=== PATIENT | female | born 1955 | race Caucasian/White ===

== ENCOUNTER → 2017-12-05 09:31 | Outpatient (CLI) | payer OTHER, SELFPAY ==
--- NOTE | 2017-12-05 09:36 | RAD_ITS ---
PROCEDURE: Fluoroscopic guided Hip Injection DATE: December 05, 2017. INDICATION: Female, 62 years old. Chronic left hip pain. PHYSICIAN: Raghavendra Mobley M.D. MEDICATIONS: 80 mg of Kenalog and 3 cc of 0.5% Marcaine. 2% Lidocaine administered subcutaneously for local anesthesia. ACCESS SITE: Left hip. NEEDLE: 22-gauge spinal needle. FLUOROSCOPY TIME (if supplied): (0:33) minutes/seconds FINDINGS: The risks, benefits, and alternatives to the procedure were explained to the patient. The specific risks of bleeding, infection, and neurovascular injury were detailed and accepted. Witnessed informed consent was obtained. A 22-gauge spinal needle was positioned under radiographic fluoroscopic localization. Approximately 2 cc of Isovue-300 instilled for localization purposes. Medication was then injected. The patient tolerated the procedure well without any immediate complications. RAD/Inj/Asp Willy Jt Should/Hip/Knee IMPRESSION: 1. Successful fluoroscopic guided hip injection. Electronically Signed: Raghavendra Mobley MD at 10:59 EST Tel [phone], Service support ,
== END ==
PROVIDERS: Family Provider Internal Medicine; PCP Internal Medicine; Visit Provider Orthopaedic Surgery
DX: M16.12 Unilateral primary osteoarthritis, left hip (principal); M25.552 Pain in left hip; G89.29 Other chronic pain
CPT/HCPCS: 20610; 77002

== ENCOUNTER → 2019-08-12 08:54 | Outpatient (CLI) | payer OTHER, SELFPAY ==
[2019-08-12 10:35] LABS: Anion Gap 4 (5-15); BUN 17 mg/dL (7-18); BUN/Creat Ratio 19.1 RATIO (10-20); Calcium,Total 9.5 mg/dL (8.5-10.1); Chloride 108 mmol/L (98-107); Cholesterol 209 mg/dL (200); Creatinine, Serum 0.89 mg/dL (0.55-1.02); EST Glomerular Filtration Rate 68 mL/min (>60); Est Glom Filt Rate - Afr Amer 82 mL/min (>60); Glucose 85 mg/dL (74-106); High Density Lipoprotein 48 mg/dL; Potassium 4.1 mmol/L (3.5-5.1); Sodium Level 141 mmol/L (136-145); Triglycerides 154 mg/dL; Very Low Density Lipoprotein 31 mg/dL (5-40)
== END ==
PROVIDERS: Family Provider Family Medicine; PCP Family Medicine; Referring Provider Family Medicine; Visit Provider Family Medicine
DX: Z13.1 Encounter for screening for diabetes mellitus (principal); Z13.220 Encounter for screening for lipoid disorders
CPT/HCPCS: 36415; 80048; 80061

== ENCOUNTER → 2020-03-23 07:41 | Outpatient (CLI) | payer OTHER, SELFPAY ==
[2020-03-23 09:22] LABS: Cholesterol 198 mg/dL (200); High Density Lipoprotein 49 mg/dL; Triglycerides 135 mg/dL; Very Low Density Lipoprotein 27 mg/dL (5-40)
== END ==
PROVIDERS: PCP Family Medicine; Referring Provider Family Medicine; Visit Provider Family Medicine
DX: Z13.220 Encounter for screening for lipoid disorders (principal)
CPT/HCPCS: 36415; 80061

== ENCOUNTER → 2020-03-30 15:43 | Outpatient (CLI) | payer OTHER, SELFPAY ==
[2020-03-30 19:06] LABS: CRP < 2.90 mg/L (0.0-3.0); Rheumatoid Factor < 10.0 IU/mL (<15)
[2020-03-30 19:14] LABS: Erythrocyte Sedimentation Rate 12 mm/hr (0-30)
[2020-04-01 13:46] LABS: ANTINUCLEAR ANTIBODIES DIRECT Positive (Negative)
== END ==
PROVIDERS: PCP Family Medicine; Referring Provider Family Medicine; Visit Provider Family Medicine
DX: M13.0 Polyarthritis, unspecified (principal)
CPT/HCPCS: 36415; 85652; 86038; 86140; 86431

== ENCOUNTER → 2020-10-22 12:27 | Outpatient (CLI) | payer MEDICARE, BC, SELFPAY ==
--- NOTE | 2020-10-22 12:30 | BI_ITS ---
MAMMOGRAPHY - BILATERAL SCREENING REASON FOR EXAM: Female, 65 years old. Routine annual screening examination. PERTINENT HISTORY: Non-contributory. TECHNIQUE: Digital bilateral breast celia (3D mammographic acquisition) in the CC and MLO projections. 2-D mediolateral oblique (MLO) and craniocaudad (CC) views of both breasts were obtained. CAD: Full Field Digital Mammography with Computer Added Detection was performed. COMPARISON: Comparison is made with prior outside examination of 06/03/2018. FINDINGS: Breast Composition: There are scattered areas of fibroglandular density. There are no dominant masses or suspicious calcifications. No other significant abnormalities are identified. There has been no significant change since the prior study. BI/SCREEN MAMM (CAD) W/CELIA BILAT IMPRESSION: Stable bilateral screening mammogram. Yearly follow-up mammogram recommended. (A) ASSESSMENT CATEGORY: BIRADS Category 1: Negative. A letter regarding these results will be sent to the patient by the facility within 30 days. Approximately 10% of breast cancers are not detected by mammography. A normal mammogram should not delay biopsy of a clinically suspicious abnormality. [id number] Electronically Signed: Raghavendra Mobley, at 13:51 EST , Service support ,
== END ==
PROVIDERS: PCP Family Medicine; Referring Provider Family Medicine; Visit Provider Family Medicine
DX: Z12.31 Encounter for screening mammogram for malignant neoplasm of breast (principal)
CPT/HCPCS: 77063; 77067

== ENCOUNTER → 2020-11-03 | Outpatient (CLI) | payer MEDICARE, SELFPAY ==
[2020-11-03 10:20] VITALS: BMI 24.7
[2020-11-08 13:08] LABS: HPV Reflexed? NOT INDICATED
== END | disposition home or self-care (01) ==
LOC: LABSPEC 13:21
PROVIDERS: PCP Family Medicine; Referring Provider Nurse Practitioner Women's Health; Visit Provider Nurse Practitioner Women's Health
DX: Z12.4 Encounter for screening for malignant neoplasm of cervix (principal)
CPT/HCPCS: 88175; G0145

== ENCOUNTER → 2020-12-23 08:20 | Outpatient (CLI) | payer MEDICARE, BC, SELFPAY ==
[2020-11-03 10:20] VITALS: BMI 24.7
[2020-12-23 09:13] LABS: ALB/GLOB Ratio 1.2 RATIO (0.9-2.4); AST(SGOT) 18 U/L (15-37); Alanine Aminotransfer ALT/SGPT 20 U/L (13-56); Alkaline Phosphatase 91 U/L (45-117); Anion Gap 2 (5-15); BUN 19 mg/dL (7-18); BUN/Creat Ratio 18.6 RATIO (10-20); Calcium,Total 9.2 mg/dL (8.5-10.1); Chloride 110 mmol/L (98-107); Cholesterol 221 mg/dL (200); Creatinine, Serum 1.02 mg/dL (0.55-1.02); EST Glomerular Filtration Rate 58 mL/min (>60); Est Glom Filt Rate - Afr Amer 70 mL/min (>60); Globulin 3.4 g/dL (2.2-4.2); Glucose 86 mg/dL (74-106); High Density Lipoprotein 50 mg/dL; Potassium 4.1 mmol/L (3.5-5.1); Protein, Total 7.4 g/dL (6.4-8.2); Sodium Level 141 mmol/L (136-145); Triglycerides 117 mg/dL; Very Low Density Lipoprotein 23 mg/dL (5-40)
== END ==
PROVIDERS: PCP Family Medicine; Referring Provider Family Medicine; Visit Provider Family Medicine
DX: E78.5 Hyperlipidemia, unspecified (principal)
CPT/HCPCS: 36415; 80053; 80061

== ENCOUNTER → 2021-03-12 10:51 | Outpatient (CLI) | payer MEDICARE, BC, SELFPAY ==
[2020-11-03 10:20] VITALS: BMI 24.7
[2021-03-12 10:58] LABS: Mucous, Urine 0 SEEN /hpf (<or=2+); Red Blood Cells-Urine 0 SEEN /hpf (0-5)
[2021-03-12 11:23] LABS: Color, Urine Yellow (Yellow); Glucose, Dipstick Normal (Normal); Ketone-Dipstick Negative (Negative); Leukocyte Esterase-Dipstick 100 /ul (Negative); Nitrite-Dipstick Negative (Negative); Occult Blood-Urine 25 /ul (Negative); Protein-Dipstick Negative (Negative); Specific Gravity, Urine 1.015 (1.002-1.030); Urine Bilirubin Dipstick Negative (Negative); Urine Clarity Clear (Clear); Urine Urobilinogen Normal (Normal)
[2021-03-12 11:36] LABS: Bacteria 1+ /hpf (None Seen); Squamous Epithelial Cells - UA 0-5 SEEN /hpf (5-10); White Blood Cells 0-5 SEEN /hpf (0-5)
== END ==
PROVIDERS: PCP Family Medicine; Referring Provider Internal Medicine Rheumatology; Visit Provider Internal Medicine Rheumatology
DX: N30.01 Acute cystitis with hematuria (principal)
CPT/HCPCS: 81001; 87086

== ENCOUNTER → 2021-05-30 09:36 | Outpatient (CLI) | payer MEDICARE, BC, SELFPAY ==
[2020-11-03 10:20] VITALS: BMI 24.7
[2021-06-01 14:45] LABS: Vitamin D 1,25-Dihydroxy 79.9 pg/mL (19.9-79.3)
== END ==
PROVIDERS: PCP Family Medicine; Visit Provider Internal Medicine Rheumatology
DX: E55.9 Vitamin D deficiency, unspecified (principal)
CPT/HCPCS: 36415; 82306; 82652

== ENCOUNTER → 2021-07-25 07:45 | Outpatient (CLI) | payer MEDICARE, BC, SELFPAY ==
[2021-07-25 10:00] LABS: ALB/GLOB Ratio 0.9 RATIO (0.9-2.4); AST(SGOT) 20 U/L (15-37); Alanine Aminotransfer ALT/SGPT 23 U/L (13-56); Albumin, Serum 3.4 g/dL (3.2-5.0); Alkaline Phosphatase 91 U/L (45-117); Anion Gap 3 (5-15); BUN 25 mg/dL (7-18); BUN/Creat Ratio 28.4 RATIO (10-20); Calcium,Total 9.1 mg/dL (8.5-10.1); Chloride 110 mmol/L (98-107); Cholesterol 219 mg/dL (200); Creatinine, Serum 0.88 mg/dL (0.55-1.02); EST Glomerular Filtration Rate 68 mL/min (>60); Est Glom Filt Rate - Afr Amer 83 mL/min (>60); Globulin 3.8 g/dL (2.2-4.2); Glucose 76 mg/dL (74-106); High Density Lipoprotein 43 mg/dL; Potassium 4.4 mmol/L (3.5-5.1); Protein, Total 7.2 g/dL (6.4-8.2); Sodium Level 141 mmol/L (136-145); Triglycerides 142 mg/dL; Very Low Density Lipoprotein 28 mg/dL (5-40)
== END ==
PROVIDERS: PCP Family Medicine; Referring Provider Family Medicine; Visit Provider Family Medicine
DX: E78.5 Hyperlipidemia, unspecified (principal)
CPT/HCPCS: 36415; 80053; 80061

== ENCOUNTER → 2021-10-17 09:54 | Outpatient (CLI) | payer MEDICARE, BC, SELFPAY ==
[2021-10-17 11:18] LABS: AST(SGOT) 19 U/L (15-37); Alanine Aminotransfer ALT/SGPT 30 U/L (13-56); Albumin, Serum 3.5 g/dL (3.2-5.0); Alkaline Phosphatase 92 U/L (45-117); Anion Gap 4 (5-15); BUN 22 mg/dL (7-18); BUN/Creat Ratio 21.8 RATIO (10-20); Chloride 109 mmol/L (98-107); Cholesterol 132 mg/dL (200); Creatinine, Serum 1.01 mg/dL (0.55-1.02); EST Glomerular Filtration Rate 58 mL/min (>60); Est Glom Filt Rate - Afr Amer 71 mL/min (>60); Globulin 3.4 g/dL (2.2-4.2); Glucose 87 mg/dL (74-106); High Density Lipoprotein 51 mg/dL; Potassium 3.9 mmol/L (3.5-5.1); Protein, Total 6.9 g/dL (6.4-8.2); Sodium Level 143 mmol/L (136-145); Triglycerides 101 mg/dL; Very Low Density Lipoprotein 20 mg/dL (5-40)
== END ==
PROVIDERS: PCP Family Medicine; Referring Provider Family Medicine; Visit Provider Family Medicine
DX: E78.5 Hyperlipidemia, unspecified (principal)
CPT/HCPCS: 36415; 80053; 80061

== ENCOUNTER → 2021-10-20 11:14 | Outpatient (CLI) | payer MEDICARE, BC, SELFPAY ==
[2021-10-20 11:17] LABS: Bacteria 0 SEEN /hpf (None Seen); Mucous, Urine 0 SEEN /hpf (<or=2+); Red Blood Cells-Urine 0 SEEN /hpf (0-5); White Blood Cells 0 SEEN /hpf (0-5)
[2021-10-20 12:18] LABS: Absolute Lymphocyte Count 1.69 X10^3/uL (0.83-4.51); Absolute Neutrophil Count 3.9 X10^3/uL (2.0-7.7); Basophil# 0.06 X10^3/uL; Basophil% 0.9 % (0-1); Eosinophil# 0.19 X10^3/uL; Hematocrit 37.4 % (37-47); Hemoglobin 12.3 g/dL (12.0-15.0); Lymphocyte # 1.69 X10^3/ul (0.83-4.51); Lymphocyte % 26.5 % (19-41); Mean Corp Hgb Conc 32.9 g/dL (32-36); Mean Corpuscular Hgb 31.4 pg (27.0-32.0); Mean Corpuscular Volume 95.4 fL (81-99); Mean Platelet Vol. 9.1 fl (6.2-12.0); Monocyte# 0.52 X10^3/uL; Monocyte% 8.2 % (0-10); NRBC Flagged by Analyzer 0 % (0-5); Neutrophil % 61.2 % (47-70); Platelet Count 309 K/mm3 (150-450); RBC Distribution Width CV 12.1 % (11.6-14.6); Red Blood Count 3.92 M/mm3 (4.2-5.4); White Blood Count 6.4 K/mm3 (4.4-11.0)
[2021-10-20 12:50] LABS: Vitamin D,25 Hydroxy 68.5 ng/mL
[2021-10-20 14:08] LABS: Color, Urine Yellow (Yellow); Glucose, Dipstick Normal (Normal); Ketone-Dipstick Negative (Negative); Leukocyte Esterase-Dipstick Negative /ul (Negative); Nitrite-Dipstick Negative (Negative); Occult Blood-Urine Negative /ul (Negative); Protein-Dipstick Negative (Negative); Urine Bilirubin Dipstick Negative (Negative); Urine Clarity Clear (Clear); Urine Urobilinogen Normal (Normal)
[2021-10-20 14:14] LABS: Squamous Epithelial Cells - UA 5-10 SEEN /hpf (5-10)
== END ==
PROVIDERS: PCP Family Medicine; Referring Provider Family Medicine; Visit Provider Family Medicine
DX: E55.9 Vitamin D deficiency, unspecified (principal); F17.200 Nicotine dependence, unspecified, uncomplicated
CPT/HCPCS: 36415; 81001; 82306; 85025

== ENCOUNTER → 2021-10-25 09:47 | Outpatient (CLI) | payer MEDICARE, BC, SELFPAY ==
--- NOTE | 2021-10-25 09:52 | RAD_ITS ---
STUDY: X-RAY - ESOPHAGUS (BARIUM SWALLOW) WITH FLUOROSCOPY REASON FOR EXAM: Female, 66 years old. DYSPHAGIA TECHNIQUE: 16 view(s) of the esophagus were obtained following swallowing of barium. FLUOROSCOPY TIME (if supplied): (27 seconds) minutes/seconds COMPARISON: None. FINDINGS: There is no demonstrated esophageal foreign body. There is no demonstrated stricture or mucosal abnormality. Normal gastroesophageal junction, without a demonstrated hiatal hernia. The patient ingested a 12 mm tablet of barium without any difficulty. There is atherosclerotic calcification of the aortic arch with tortuosity of the descending aorta. Normal visualized pulmonary parenchyma. Normal visualized osseous structures of the thorax. RAD/Esophagus Dual Contrast IMPRESSION: Normal plain film x-ray examination (barium swallow) of the esophagus. Electronically Signed: Raghavendra Mobley MD at 12:51 EST , Service support ,
== END ==
PROVIDERS: PCP Family Medicine; Referring Provider Family Medicine; Visit Provider Family Medicine
DX: R13.10 Dysphagia, unspecified (principal); R09.89 Other specified symptoms and signs involving the circulatory and respiratory systems; F17.200 Nicotine dependence, unspecified, uncomplicated
CPT/HCPCS: 74221

== ENCOUNTER 2021-11-11 13:08 | Outpatient (CLI) | payer MEDICARE, BC, SELFPAY ==
--- NOTE | 2021-11-11 13:11 | CT_ITS ---
STUDY: LOW DOSE CT LUNG CANCER SCREENING REASON FOR EXAM: Female, 66 years old. TOBACCO USE. Patient smoked 1 pack per day for 51 years. RADIATION DOSAGE (If Supplied By Facility): CTDIvol = ( 2.39 ) mGy, DLP = ( 68.78 ) mGycm TECHNIQUE: No contrast was administered. Low dose technique was utilized (average mAS-38 and kVp 120). 1.25 mm axial source images with a slice interval of 1.25-mm were reconstructed in lung windows. 2.5 mm axial source images with a slice interval of 2.5-mm were reconstructed in lung windows. 5.0 mm axial source images with a slice interval of 5.0-mm were reconstructed in soft tissue windows. Nodule measured using lung windows on PACS and/or independent workstation with automated measurement of minimum and maximum diameter. Nodule measurement reported as average diameter rounded to the nearest whole number. Growth is defined as an increase ins size of greater than 1.5 mm. COMPARISON: None. NODULES: No suspicious nodules are seen. Emphysema: Hyperinflation of the symphysis changes more prominent in the upper lobes. Endobronchial lesion: None Aorta: Scattered atherosclerotic calcification. Coronary arteries: Coronary artery calcification. Heart: Unremarkable Pulmonary artery: Unremarkable Mediastinal nodes: Small mediastinal lymph nodes. Other chest and abdominal findings: CT/Low Dose CT Lung Screening IMPRESSION: Lung-RADS category 2 - Continue annual screening with LDCT in 12 months. IMPORTANT NOTES FOR USE: ACR Lung-RADS Version 1.1 Assessment Categories Release Date: 2018 Category: Coded 0-4 bases on nodule(s) with highest degree of suspicion. Negative screen is defined as categories 1 and 2; a positive screen is defined as categories 3 and 4. Category 3 and 4A nodules that are unchanged on interval CT should be coded as category 2, and individuals returned to screening in 12 months. Category 4X: Category 3 or 4 nodules with additional imaging findings that increase the suspicion of lung cancer, such as spiculation, GGN that doubles in size in 1 year, enlarged lymph notes, etc. Category Modifiers: S (significant finding unrelated to lung cancer) Electronically Signed: Raghavendra Mobley MD at 13:50 EST , Service support ,
--- NOTE | 2021-11-11 13:13 | ART_ITS ---
Reason For Study: Decreased pedal pulses Procedure A bilateral lower extremity continuous wave Doppler with analog waveform analysis,segmental pressures,and ankle brachial indexes with exercise. Left Segmental Pressures Left brachial= 131mmHg. Left posterior tibial artery = 123mmHg. Left dorsalis pedis artery = 119mmHg. The left dorsalis pedis waveforms are triphasic. The left posterior tibial artery waveforms are biphasic. Right Segmental Pressures Right brachial= 136mmHg. Right posterior tibial artery = 147mmHg. Right dorsalis pedis artery = 150mmHg. The right dorsalis pedis waveforms are triphasic. The right posterior tibial artery waveforms are triphasic. Indices The right ankle brachial index by the dorsalis pedis is 1.10. The right ankle brachial index by the posterior tibial artery is 1.08. The right post exercise ankle brachial index is 0.64. The left ankle brachial index by the dorsalis pedis is 0.88. The left ankle brachial index by the posterior tibial artery is 0.90. The left post exercise ankle brachial index is 0.55. VL/Lower Ext Art Exam w/ Exercise Interpretation Summary Normal resting right lower extremity anklebrachial index and triphasic waveform s. Abnormal post exercise index of 0.64 consistent with clinically significant arterial occlusiv e disease. Abnormal left lower extremity ankle brachial index at rest and with extercise ( 0.55) consistent with clinically significant arterial occlusive disease. The location of the disease cannot be determined on this examination. Ordering Physician: Anastacio Lloyd Referring Physician: Anastacio Lloyd Performed By: Cecy Verdugo RVT
== END 2021-11-11 23:59 | disposition short-term general hospital (02) ==
LOC: CT 13:08
PROVIDERS: PCP Family Medicine; Referring Provider Family Medicine; Visit Provider Family Medicine
DX: Z12.2 Encounter for screening for malignant neoplasm of respiratory organs (principal); R09.89 Other specified symptoms and signs involving the circulatory and respiratory systems; Z87.891 Personal history of nicotine dependence
CPT/HCPCS: 71271; 93924; 96374; 99218; G0378

== ENCOUNTER 2021-12-02 07:10 | Day surgery (SDC) | payer MEDICARE, BC, SELFPAY ==
[2021-12-02] VITALS (10 sets, daily range): BP systolic 116–150; BP diastolic 68–89; PULSE 58–80; RESP 16–18; TEMP 35.9–36.4; O2SAT 95–100; BMI 26.2
--- NOTE | 2021-12-02 | GASB_PTH ---
PATIENT: RYAN MAYBERRY LOC: EN U#:[id number] AGE/SX: 66/F ROOM: RE12/02/[address]: Dr. Kevin Lux MD : 1955 BED: DIS: 12/02/2021 SPEC #: [id number] RECD: 12/02/21 11:37 STATUS: CHARITO APARNA #: [id number] DAYO: 12/02/21 00:[address]: Kevin Lux DEPT: SURGICAL PATHOLOGY RECD BY: Wilberto Vigil ENTERED: 12/02/21 11:38 SP TYPE: Gastric Bx OTHR DR: Dr. Anastacio Lloyd MD Tissues: A - Gastric mucous membrane B - Gastric mucous membrane C - Esophageal mucous membrane Procedures: Special Stain Group II Surgery Specimen Level IV Alcian Blue/PAS (control) HEADER OPERATION: Colonoscopy, EGD ([facility]) PRE-OP DIAGNOSIS: Acid reflux, screening TISSUE SUBMITTED: A ? Antrum biopsy for H. pylori and path, B ? Gastric hiatal hernia biopsy, C ? Distal esophagus biopsy MICROSCOPIC DIAGNOSIS A. Antrum biopsy: Mild gastritis. See microscopic description & comment. B. Hiatal hernia, biopsy: Mild gastritis. See microscopic description. C. 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 Chronic inflammation. Negative for dysplasia. See comment. MISA:john 12/05/2021 COMMENT A - The results of immunohistochemistry for Helicobacter pylori will be reported separately ([id number]). C. Immunohistochemistry ([id number]) for P53 and Ki-67 is being performed and results will be reported separately. Alcian blue/PAS stain with matched control is used in the evaluation of the specimen. Case has been reviewed in consultation with who concurs with the above diagnosis. IDC:MISA MICROSCOPIC DESCRIPTION Slides are reviewed. A & B. The specimen shows fragments of gastric mucosa with chronic inflammatory cell infiltrates in the lamina propria consisting of lymphocytes and plasma cells, consistent with mild chronic gastritis. GROSS DESCRIPTION A - Received in fixative is one container labeled with the patient's name and designated antrum biopsy. The specimen consists of one irregular fragment of light pate soft tissue that measures 0.3 x 0.3 x 0.1 cm. The specimen is totally submitted in one cassette. B - Received in fixative is one container labeled with the patient's name and designated gastric hiatal hernia biopsy. The specimen consists of multiple irregular fragments of light pate soft tissue that in aggregate measure 1 x 0.5 x 0.1 cm. The specimen is totally submitted in one cassette. C - Received in fixative is one container labeled with the patient's name and designated distal esophagus biopsy. The specimen consists of multiple irregular fragments of light pate soft tissue that in aggregate measure 2 x 0.4 x 0.1 cm. The specimen is totally submitted in one cassette. / SJ:john 12/02/2021 TC:3 CPT: 42864 x3, 49786
--- NOTE | 2021-12-02 07:49 | HP.PCM_ITS ---
History and Physical Date of Admission: 12/02/21 Intake Visit Reasons: DYSPHAGIA Chief Complaint: Dysphagia Laboratory Chief Required: No Is patient in pain?: No Allergies nickel Allergy (Verified 11/11/21 08:39) Unknown orange juice Allergy (Verified 11/11/21 08:39) Unknown TEA Allergy (Uncoded 09/22/21 13:02) Unknown Medications cholecalciferol (vitamin D3) 50 mcg (2,000 unit) capsule 50 mcg PO DAILY 09/22/21 [History Confirmed 11/11/21] oxaprozin 600 mg tablet 600 mg PO DAILY 09/22/21 [History Confirmed 11/11/21] cyclobenzaprine 10 mg tablet 10 mg PO HS 11/11/21 [History Confirmed 11/11/21] omeprazole 20 mg capsule,delayed release 20 mg PO DAILY 11/11/21 [History Confirmed 11/11/21] oxymetazoline 0.05 % nasal spray 1 spray INTRANASAL ONCE 11/11/21 [History Confirmed 11/11/21] [facility] Medical History Acid reflux Arthritis Constipation Dysphagia injection in hip Surgical History (Updated 11/11/21 @ 08:36 by Melody Sunday) History of appendectomy History of cataract surgery History of tubal ligation Family History Mother Diabetes Heart disease Hypertension High cholesterol Sister Diabetes Heart disease High cholesterol Hypertension Father Diabetes Daughter Thyroid disorder Social History (Updated 11/11/21 @ 08:38 by Melody Sunday) household members: spouse and other details: grandson number of children: 2 current occupational status: retired history of recent travel: No Smoking Status: Current every day smoker alcohol intake: current alcohol intake frequency: a few times a month details: socially substance use type: does not use what type of physical activity do you participate in: none seatbelt use: always do you feel safe at home: Yes additional social history: - Isaak HPI HPI HPI: RYAN MAYBERRY, is a 66 F who presents to the office today for surgical consultation regarding esophageal dysphagia. The patient is being referred by Dr Anastacio Lloyd and a written copy my surgical consult recommendations will be returned to him. On October 25, [address] [facility] the p atient had a barium swallow. This was felt to be normal. Patient does have a significant history of tobacco use. She has a chronic nonproductive cough. She claims to have a long-term history of reflux symptoms and previously was on famotidine with no relief. She is complaining of epigastric and retrosternal burning and sour brash sensation. Symptoms are worse when she bends over. She has been placed on omeprazole therapy which she takes in the morning. In further discussing with the patient it is evident that she has had a previous colonoscopy but we are unsure on dates. She is not sure whether she was due for a another screening exam. She has no change in bowel habits. No bright red blood per rectum or melena. No abdominal pain. No unexpected weight loss. There is no family history of cancer. She is not on any anticoagulants. ROS General General: No weight change, appetite, fatigue, colon cancer, breast cancer or weakness HEENT HEENT: Yes difficulty swallowing; No eye injury, eye surgery, swollen glands or hoarseness Additional Details: Last 6 months Endo Endocrine: No thyroid disease, diabetes mellitus, thyroid cancer, Hair loss, heat intolerance or cold intolerance Skin Skin: No rash or changing moles Musc Musculoskeletal: Yes arthritis; No back problems, rheumatoid arthritis, gout or joint pain Cardio Cardiovascular: Yes murmur; No pacemaker, heart disease, atrial fibrillation, high blood pressure, heart attack, heart stent, palpitations, shortness of breat with exertion or chest pain Psych Psychiatric: No depression, anxiety or hearing voices Resp Respiratory: No shortness of breath, No sleep apnea, Yes cough, No COPD, No asthma, No emphysema and No wheezing Gastro Gastrointestinal: No abdominal pain, No nausea or vomiting, No diarrhea, Yes constipation, No blood in stool, Yes acid reflux, No hemorrhoids, No ulcers, No gallbladder problem and No black,tarry stools Chandana Hematologic: No blood thinners, No blood disorders, No bleeding, No anemia and No blood clots Neuro Neurologic: No system reviewed and no additional complaints, except as documented, No as per HPI, No abnormal gait, No abnormal hearing, No abnormal movements, No abnormal speech, No behavioral changes, No burning sensations, No confusion, No convulsions, No disequilibrium, No dizziness, No localized weakness, No frequent falls, No headache(s), No lack of coordination, No loss of vision, No memory loss, No numbness, No other visual disturbances, No radicular pain, No restless legs, No sensory deficit, No syncope, Yes tingling (in toes), No tremor(s), No weakness and No other Exam Const General: cooperative, healthy appearing and comfortable Nutritional Appearance: average body habitus Orientation: alert and awake [facility] Head: normal to inspection Eyes General: appearance normal, both eyes and all related structures Resp Effort & Inspection: normal respiratory effort Auscultation: clear to auscultation bilaterally Cardio Rate: regular rate Rhythm: regular rhythm GI Palpation: soft and no hepatosplenomegaly Auscultation: normal bowel sounds Musc Cervical Spine: normal cervical lordosis Neuro General: patient alert and patient awake Extrem General: no calf tenderness Psych Appearance: grossly normal Assessment and Plan Assessment and Plan (1) Acid reflux: Status: Acute Qualifiers: Esophagitis presence: esophagitis presence not specified Qualified Code(s): K21.9 - Gastro-esophageal reflux disease without esophagitis (2) Screening for intestinal cancer: Status: Acute Plan - Dr. Kevin Lux MD: Patient with ongoing reflux symptoms. She has never had an upper endoscopy. I propose for her a esophagogastroduodenoscopy with possible biopsy or polypectomy as indicated. Careful inspection for hiatal hernia or reflux or Izaguirre's or even eosinophilic esophagitis will be pursued. She is currently being treated by Dr Anastacio Lloyd with omeprazole therapy 40 mg daily. The patient is unsure as to when she would have had her previous screening colonoscopy. She thinks it has been multiple years. We will try to obtain records from [facility]. If she is 10 years out then I would recommend a simultaneous screening colonoscopy at the time of her upper endoscopy The patient has not had the COVID-19 vaccine. I did describe with her today benefit and risk. As noted in the history the patient is a chronic cigarette smoker. We will utilize monitored anesthesia care to assist. Copy: Dr Anastacio Lux M.D., F.A.C.S. I have re-examined the patient. There are no clinical changes since date of exam.
[2021-12-02] MEDS: Lactated Ringers 1,000 ML 15 ML IV (07:55)
--- NOTE | 2021-12-02 08:30 | IMM_PTH ---
PATIENT: RYAN MAYBERRY LOC: EN U#:[id number] AGE/SX: 66/F ROOM: RE12/02/[address]: Dr. Kevin Lux MD : 1955 BED: DIS: 12/02/2021 SPEC #: [id number] RECD: 12/02/21 12:54 STATUS: CHARITO RESerene #: [id number] DAYO: 12/02/21 08:[address]: Kevin Lux DEPT: IMMUNOHISTOCHEMISTRY RECD BY: Lina Branch ENTERED: 12/02/21 13:00 SP TYPE: IMMUNO OTHR DR: Dr. Anastacio Lloyd MD Tissues: A - Stomach, NOS C - Esophagus, NOS Procedures: H Pylori (initial) P53 (initial) KI-67 (add) PHYSICIAN & INSTITUTION [place] [address] SPECIMEN INFORMATION: Tissue Source: A ? Antrum biopsy, C ? Distal esophagus biopsy Clinical Info: Acid reflux, screening Specimen Number: [id number] A & C CPT code: 44511 x2, 90883 METHODOLOGY: Deparaffinized sections of prefer/formalin-fixed tissue or PAP/DQ stained slides are incubated with monoclonal/polyclonal antibodies/oligonucleotide probes. Localization is made via biotin free immunoperoxidase method. Appropriate controls are performed and reacted as expected. Results on target cell population are indicated in the following table: RESULTS: ANTIBODY / CLONE RESULT Block A H Pylori (polyclonal) negative Block C P53 (DO-7) negative Ki-67 (30-9) positive, low These tests were developed and their performance characteristics determined by [facility]. They may not have been cleared or approved by the U.S. Food and Drug Administration. The FDA has determined that such clearance or approval is not necessary. The above immunohistochemical/dualISH markers are ordered and reviewed by the pathologist. INTERPRETATION: A. Antrum biopsy: Negative for Helicobacter pylori organisms. B. Distal esophagus, biopsy: No evidence of dysplasia. AM:john 12/06/2021
--- NOTE | 2021-12-02 09:54 | OP.EGD_ITS ---
Patient Name: Pilar Persaud Procedure Date: 12/02/2021 8:29 AM Date of : 1955 Age: 66 Procedure: Upper GI endoscopy Indications: Suspected esophageal reflux Providers: Kevin Lux MD Referring MD: Kevin Lux MD Medicines: See the Anesthesia note for documentation of the administered medications Complications: No immediate complications. Procedure: Pre-Anesthesia Assessment: - Prior to the procedure, a History and Physical was performed, and patient medications and allergies were reviewed. The patient's tolerance of previous anesthesia was also reviewed. The risks and benefits of the procedure and the sedation options and risks were discussed with the patient. All questions were answered, and informed consent was obtained. Prior Anticoagulants: The patient has taken no previous anticoagulant or antiplatelet agents. ASA Grade Assessment: II - A patient with mild systemic disease. After reviewing the risks and benefits, the patient was deemed in satisfactory condition to undergo the procedure. After obtaining informed consent, the endoscope was passed under direct vision. Throughout the procedure, the patient's blood pressure, pulse, and oxygen saturations were monitored continuously. The gastroscope was introduced through the mouth, and advanced to the second part of duodenum. The upper GI endoscopy was accomplished without difficulty. The patient tolerated the procedure well. Scope In: 8:37:17 AM Scope Out: 8:50:24 AM Total Procedure Duration Time 0 hours 13 minutes 7 seconds Findings: A 5 cm hiatal hernia was present. There were esophageal mucosal changes suspicious for long-segment Izaguirre's esophagus present in the distal esophagus. The maximum longitudinal extent of these mucosal changes was 5 cm in length. Mucosa was biopsied with a cold forceps for histology. Diffuse mildly erythematous mucosa without bleeding was found in the gastric antrum. Biopsies were taken with a cold forceps for histology. The examined duodenum was normal. Impression: - 5 cm hiatal hernia. - Esophageal mucosal changes suspicious for long-segment Izaguirre's esophagus. Biopsied. - Erythematous mucosa in the antrum. Biopsied. - Normal examined duodenum. Recommendation: - Discharge patient to home. - Resume previous diet. - Continue present medications. - Telephone my office for pathology results in 1 week. Procedure Code(s): --- Professional --- 30453, Esophagogastroduodenoscopy, flexible, transoral; with biopsy, single or multiple Diagnosis Code(s): --- Professional --- K44.9, Diaphragmatic hernia without obstruction or gangrene K22.8, Other specified diseases of esophagus K31.89, Other diseases of stomach and duodenum CPT copyright 2017 [employer]. All rights reserved. The codes documented in this report are preliminary and upon transit clerk review may be revised to meet current compliance requirements. Kevin Lux MD 12/02/2021 9:53:08 AM This report has been signed electronically. Number of Addenda: 0 Note Initiated On: 12/02/2021 8:29 AM
--- NOTE | 2021-12-02 09:54 | OP.CCLET_ITS ---
12/02/2021 Anastacio Lloyd [address] [place] [address] Re : Upper GI endoscopy procedure for Pilar Persaud Dear Dr. Lloyd This procedure was performed on Thursday, December 02, 2021. My impressions and recommendations are as follows: Impressions : - 5 cm hiatal hernia. - Esophageal mucosal changes suspicious for long-segment Izgauirre's esophagus. Biopsied. - Erythematous mucosa in the antrum. Biopsied. - Normal examined duodenum. Recommendations : - Discharge patient to home. - Resume previous diet. - Continue present medications. - Telephone my office for pathology results in 1 week. My findings are described in the full procedure note, which is enclosed. If I can be of further assistance, please feel free to contact me at Doctor phone number(s): Work: . Sincerely, Kevin Lux MD 12/02/2021 9:53:08 AM This report has been signed electronically.
--- NOTE | 2021-12-02 09:58 | OP.COLON_ITS ---
Patient Name: Pilar Persaud Procedure Date: 12/02/2021 8:52 AM Date of : 1955 Age: 66 Procedure: Colonoscopy Indications: Screening for colorectal malignant neoplasm Providers: Kevin Lux MD Referring MD: Kevin Lux MD Medicines: See the Anesthesia note for documentation of the administered medications Patient Profile: Last Colonoscopy: more than 10 years ago. Complications: No immediate complications. Procedure: Pre-Anesthesia Assessment: - Prior to the procedure, a History and Physical was performed, and patient medications and allergies were reviewed. The patient's tolerance of previous anesthesia was also reviewed. The risks and benefits of the procedure and the sedation options and risks were discussed with the patient. All questions were answered, and informed consent was obtained. Prior Anticoagulants: The patient has taken no previous anticoagulant or antiplatelet agents. ASA Grade Assessment: II - A patient with mild systemic disease. After reviewing the risks and benefits, the patient was deemed in satisfactory condition to undergo the procedure. After I obtained informed consent, the scope was passed under direct vision. Throughout the procedure, the patient's blood pressure, pulse, and oxygen saturations were monitored continuously. The Colonoscope was introduced through the anus and advanced to the cecum, identified by appendiceal orifice and ileocecal valve. The colonoscopy was technically difficult and complex due to a redundant colon, significant looping and a tortuous colon. Successful completion of the procedure was aided by applying abdominal pressure. The patient tolerated the procedure well. The quality of the bowel preparation was good. The ileocecal valve and the appendiceal orifice were photographed. Scope In: 8:55:15 AM Scope Withdrawal Time 0 hours 6 minutes 14 seconds Scope Out: 9:47:37 AM Total Procedure Duration Time 0 hours 52 minutes 22 seconds Findings: The digital rectal exam findings include decreased sphincter tone, non-thrombosed internal hemorrhoids and internal hemorrhoids that prolapse with straining, but spontaneously regress to the resting position (Grade II). The colon (entire examined portion) was significantly redundant. Impression: - Decreased sphincter tone, non-thrombosed internal hemorrhoids and internal hemorrhoids that prolapse with straining, but spontaneously regress to the resting position (Grade II) found on digital rectal exam. - Redundant colon. - No specimens collected. Recommendation: - Discharge patient to home. - Resume previous diet. - Continue present medications. - Repeat colonoscopy is not recommended due to current age (66 years or older) for screening purposes. Very difficult colonoscopy, required adult scope and significant effort. Additional screening exams not recommended. Procedure Code(s): --- Professional --- 74833, Colonoscopy, flexible; diagnostic, including collection of specimen(s) by brushing or washing, when performed (separate procedure) Diagnosis Code(s): --- Professional --- Z12.11, Encounter for screening for malignant neoplasm of colon K62.89, Other specified diseases of anus and rectum K64.1, Second degree hemorrhoids Q43.8, Other specified congenital malformations of intestine CPT copyright 2017 [employer]. All rights reserved. The codes documented in this report are preliminary and upon medical record coder review may be revised to meet current compliance requirements. Kevin Lux MD 12/02/2021 9:57:45 AM This report has been signed electronically. Number of Addenda: 0 Note Initiated On: 12/02/2021 8:52 AM
--- NOTE | 2021-12-02 09:59 | OP.CCLET_ITS ---
12/02/2021 Anastacio Lloyd [address] [place] [address] Re : Colonoscopy procedure for Pilar Hung Dear Dr. Lloyd This procedure was performed on Thursday, December 02, 2021. My impressions and recommendations are as follows: Impressions : - Decreased sphincter tone, non-thrombosed internal hemorrhoids and internal hemorrhoids that prolapse with straining, but spontaneously regress to the resting position (Grade II) found on digital rectal exam. - Redundant colon. - No specimens collected. Recommendations : - Discharge patient to home. - Resume previous diet. - Continue present medications. - Repeat colonoscopy is not recommended due to current age (66 years or older) for screening purposes. Very difficult colonoscopy, required adult scope and significant effort. Additional screening exams not recommended. My findings are described in the full procedure note, which is enclosed. If I can be of further assistance, please feel free to contact me at Doctor phone number(s): Work: . Sincerely, Kevin Lux MD 12/02/2021 9:57:45 AM This report has been signed electronically.
== END 2021-12-02 23:59 | disposition home or self-care (01) ==
LOC: EN 07:10 → AC 07:10
PROVIDERS: PCP Family Medicine; Referring Provider Surgery; Visit Provider Surgery
PROC: 0DJD8ZZ Inspection of Lower Intestinal Tract, Via Natural or Artificial Opening Endoscopic (ICD-10-PCS; CPT 45378; principal; 2021-12-02 08:25)
DX: Z12.11 Encounter for screening for malignant neoplasm of colon (principal); K64.1 Second degree hemorrhoids; K62.89 Other specified diseases of anus and rectum; Q43.8 Other specified congenital malformations of intestine; K22.70 Barrett's esophagus without dysplasia; K44.9 Diaphragmatic hernia without obstruction or gangrene; K29.70 Gastritis, unspecified, without bleeding; K21.9 Gastro-esophageal reflux disease without esophagitis; M19.90 Unspecified osteoarthritis, unspecified site; F17.210 Nicotine dependence, cigarettes, uncomplicated; Z79.899 Other long term (current) drug therapy
CPT/HCPCS: 45378; 43239; 87426; 88305; 88313; 88341; 88342; C9803; J7120; J2405

== ENCOUNTER 2021-12-19 11:48 | Outpatient (CLI) | payer MEDICARE, BC, SELFPAY ==
--- NOTE | 2021-12-19 12:25 | RAD_ITS ---
STUDY: X-RAY - PELVIS AND LEFT HIP REASON FOR EXAM: Left hip pain. TECHNIQUE: 2 views of the pelvis and hip. COMPARISON: Fluoroscopic image 12/05/2017. FINDINGS: There are small pelvic phleboliths. Normal bilateral iliac wings, sacroiliac joints and visualized sacrum. Normal bilateral superior and inferior pubic rami. Normal pubic symphysis. Normal bilateral ischial tuberosities. There are marginal osteophytes of the left femoral head, subchondral eburnation of the acetabulum and left femoral head and joint space narrowing of the left superior medial hip joint. RAD/HIP, UNI W/ Pelvis 2-3 Views IMPRESSION: Left hip arthrosis. Electronically Signed: Darwin Andujar MD at 14:58 EST ,
--- NOTE | 2021-12-19 12:25 | RAD_ITS ---
STUDY: X-RAY - LUMBAR SPINE REASON FOR EXAM: Female, 66 years old. Radiating low back pain TECHNIQUE: 3 view(s) of the lumbar spine were obtained. COMPARISON: None FINDINGS: Normal lumbar lordosis. There is no substantial scoliosis. There is a normal alignment of the vertebrae from L1 to L4. There is a grade 1 spondylolisthesis at L4-5. L5 and S1 demonstrate anatomic alignment.. There is multilevel endplate spondylosis of the lumbar vertebrae. There is multi-level degenerative disc disease with multi-level disc space narrowing. There is no demonstrated fracture. There is atherosclerotic calcification of the abdominal aorta without a demonstrated aneurysm. RAD/Lumbar Spine 2 or 3 Views IMPRESSION: Degenerative changes of the spine, as detailed above. No acute abnormality Grade 1 spondylolisthesis at L4-5 Electronically Signed: Ehsan Matthews MD at 10:13 EST ,
== END 2021-12-19 23:59 | disposition home or self-care (01) ==
PROVIDERS: PCP Family Medicine; Referring Provider Family Medicine; Visit Provider Family Medicine
DX: M16.12 Unilateral primary osteoarthritis, left hip (principal); M43.16 Spondylolisthesis, lumbar region; M51.36 Other intervertebral disc degeneration, lumbar region; M48.061 Spinal stenosis, lumbar region without neurogenic claudication
CPT/HCPCS: 72100; 73502

== ENCOUNTER 2021-12-27 13:10 | Outpatient (CLI) | payer MEDICARE, BC, SELFPAY ==
--- NOTE | 2021-12-27 13:14 | RAD_ITS ---
PROCEDURE: Fluoroscopic guided Hip Injection DATE: 12/27/2021. INDICATION: Female, 66 years old. Chronic left hip pain. PHYSICIAN: Raghavendra Mobley M.D. MEDICATIONS: 40 mg of KENALOG and 4 cc of 1% LIDOCAINE. 2% lidocaine administered subcutaneously for local anesthesia. ACCESS SITE: Left hip. NEEDLE: 22-gauge spinal needle. FLUOROSCOPY TIME (if supplied): (0:41) minutes/seconds. One image was obtained. FINDINGS: The risks, benefits, and alternatives to the procedure were explained to the patient. The specific risks of bleeding, infection, and neurovascular injury were detailed and accepted. Witnessed informed consent was obtained. A 22-gauge spinal needle was positioned under radiographic fluoroscopic localization. Approximately 2 cc of ISOVUE-300 instilled for localization purposes. Medication was then injected. The patient tolerated the procedure well without any immediate complications. RAD/Inj/Asp Willy Jt Should/Hip/Knee IMPRESSION: 1. Successful fluoroscopic guided hip injection. Electronically Signed: Raghavendra Mobley MD at 14:28 EST ,
[2021-12-27] MEDS: Triamcinolone Acetonide 40 MG/ML Vial INTRAARTIC (13:30)
[2021-12-27] MEDS: Lidocaine 2% (5ml sdv) 5 ML VIAL.MPF INFILT (13:30)
[2021-12-27] MEDS: Lidocaine 1% (5 ml sdv) 5 ML Vial 4 ML OPERA.SITE (13:30)
== END 2021-12-27 23:59 | disposition home or self-care (01) ==
LOC: RAD 13:11
PROVIDERS: PCP Family Medicine; Referring Provider Family Medicine; Visit Provider Family Medicine
DX: M16.12 Unilateral primary osteoarthritis, left hip (principal)
CPT/HCPCS: 20610; 77002; Q9967

== ENCOUNTER → 2021-12-29 | Day surgery (SDC) | payer MEDICARE, BC, SELFPAY ==
[2021-12-29] MEDS: Lidocaine Jelly 2% 20 ML Syringe (URO-JET) 1 APPLIC (08:55)
[2021-12-29 08:56] VITALS: BP 128/76; PULSE 53; RESP 16; TEMP 36.5; O2SAT 95
== END | disposition home or self-care (01) ==
LOC: EN 08:34
PROVIDERS: PCP Family Medicine; Referring Provider Family Medicine; Visit Provider Surgery
PROC: F00ZJWZ Instrumental Swallowing and Oral Function Assessment using Swallowing Equipment (ICD-10-PCS; CPT 43235; principal; 2021-12-29 08:25)
DX: K21.9 Gastro-esophageal reflux disease without esophagitis (principal)
CPT/HCPCS: 91010

== ENCOUNTER 2022-01-25 13:36 | Outpatient (CLI) | payer MEDICARE, BC, SELFPAY ==
[2022-01-25 15:11] LABS: Absolute Lymphocyte Count 1.63 X10^3/uL (0.83-4.51); Absolute Neutrophil Count 3.8 X10^3/uL (2.0-7.7); Basophil# 0.07 X10^3/uL; Basophil% 1.1 % (0-1); Eosinophil# 0.16 X10^3/uL; Eosinophils% 2.6 % (0-5); Hematocrit 37.4 % (37-47); Hemoglobin 11.8 g/dL (12.0-15.0); Lymphocyte # 1.63 X10^3/ul (0.83-4.51); Lymphocyte % 26.3 % (19-41); Mean Corp Hgb Conc 31.6 g/dL (32-36); Mean Corpuscular Hgb 30.4 pg (27.0-32.0); Mean Corpuscular Volume 96.4 fL (81-99); Mean Platelet Vol. 9.2 fl (6.2-12.0); Monocyte# 0.49 X10^3/uL; Monocyte% 7.9 % (0-10); NRBC Flagged by Analyzer 0 % (0-5); Neutrophil # 3.82 X10^3/uL (2.7-7.7); Neutrophil % 61.8 % (47-70); Platelet Count 287 K/mm3 (150-450); RBC Distribution Width CV 12.4 % (11.6-14.6); RBC Distribution Width SD 43.9 fl (35.1-43.9); Red Blood Count 3.88 M/mm3 (4.2-5.4); White Blood Count 6.2 K/mm3 (4.4-11.0)
[2022-01-25 15:46] LABS: ALB/GLOB Ratio 1.1 RATIO (0.9-2.4); AST(SGOT) 24 U/L (15-37); Alanine Aminotransfer ALT/SGPT 37 U/L (13-56); Albumin, Serum 3.7 g/dL (3.2-5.0); Alkaline Phosphatase 111 U/L (45-117); Anion Gap 3 (5-15); BUN 18 mg/dL (7-18); BUN/Creat Ratio 19.7 RATIO (10-20); Calcium,Total 9.2 mg/dL (8.5-10.1); Chloride 106 mmol/L (98-107); Cholesterol 139 mg/dL (200); Creatinine, Serum 0.91 mg/dL (0.55-1.02); EST Glomerular Filtration Rate 66 mL/min (>60); Est Glom Filt Rate - Afr Amer 79 mL/min (>60); Globulin 3.3 g/dL (2.2-4.2); Glucose 92 mg/dL (74-106); High Density Lipoprotein 52 mg/dL; Potassium 4.3 mmol/L (3.5-5.1); Sodium Level 140 mmol/L (136-145); Triglycerides 113 mg/dL; Very Low Density Lipoprotein 23 mg/dL (5-40)
[2022-01-26 12:15] LABS: Ferritin 24 ng/mL (8-252); Iron 85 ug/dL (50-170); Iron Binding Capacity,Total 315 ug/dL (250-450)
[2022-01-26 12:28] LABS: Vitamin B12 535 pg/mL (211-911)
== END 2022-01-25 23:59 | disposition home or self-care (01) ==
LOC: MFPLAB 13:40
PROVIDERS: PCP Family Medicine; Referring Provider Family Medicine; Visit Provider Family Medicine
DX: E78.5 Hyperlipidemia, unspecified (principal); I73.9 Peripheral vascular disease, unspecified; E55.9 Vitamin D deficiency, unspecified; D64.9 Anemia, unspecified; F17.200 Nicotine dependence, unspecified, uncomplicated
CPT/HCPCS: 36415; 80053; 80061; 82306; 82607; 82728; 83540; 83550; 85025

== ENCOUNTER 2022-04-11 10:00 | Observation (INO) | payer MEDICARE, BC, SELFPAY ==
[2022-04-06 10:02] LABS: Hematocrit 37.8 % (37-47); Mean Corp Hgb Conc 31.7 g/dL (32-36); Mean Corpuscular Hgb 30.7 pg (27.0-32.0); Mean Corpuscular Volume 96.7 fL (81-99); Mean Platelet Vol. 9.4 fl (6.2-12.0); Platelet Count 265 K/mm3 (150-450); RBC Distribution Width CV 12.4 % (11.6-14.6); RBC Distribution Width SD 43.7 fl (35.1-43.9); Red Blood Count 3.91 M/mm3 (4.2-5.4); White Blood Count 5.5 K/mm3 (4.4-11.0)
--- NOTE | 2022-04-06 10:06 | EKG12_ITS ---
Test Reason : PREOP Blood Pressure : / mmHG Vent. Rate : 068 BPM Atrial Rate : 068 BPM P-R Int : 176 ms QRS Dur : 072 ms QT Int : 376 ms P-R-T Axes : 066 034 047 degrees QTc Int : 399 ms Normal sinus rhythm Low voltage QRS Septal infarct , age undetermined Abnormal ECG Confirmed by COLLIN GATES, LEXUS ([id number]), editorial manager DAWIT FRAZIER ([id number]) on 04/07/2022 1:50:57 PM Referred By: Kevin Lux Confirmed By:MARYANA POLANCO MD
[2022-04-06 10:43] LABS: Anion Gap 4 (5-15); BUN 24 mg/dL (7-18); BUN/Creat Ratio 26.5 RATIO (10-20); Calcium,Total 9.3 mg/dL (8.5-10.1); Chloride 109 mmol/L (98-107); Creatinine, Serum 0.91 mg/dL (0.55-1.02); EST Glomerular Filtration Rate 66 mL/min (>60); Est Glom Filt Rate - Afr Amer 80 mL/min (>60); Glucose 133 mg/dL (74-106); Potassium 3.9 mmol/L (3.5-5.1); Sodium Level 140 mmol/L (136-145)
[2022-04-11] VITALS (16 sets, daily range): BP systolic 129–158; BP diastolic 77–90; PULSE 65–87; RESP 15–17; TEMP 36–36.9; O2SAT 90–100; BMI 27.9
--- NOTE | 2022-04-11 05:57 | HP.PCM_ITS ---
History and Physical Date of Admission: 04/11/22 Intake Visit Reasons: [facility] Chief Complaint: update H&P for [facility] Automation Developer Required: No Is patient in pain?: No Allergies nickel Allergy (Verified 04/06/22 09:25) Unknown orange juice Allergy (Verified 04/06/22 09:25) Unknown TEA Allergy (Uncoded 12/02/21 07:36) Unknown Medications cholecalciferol (vitamin D3) 50 mcg (2,000 unit) capsule 50 mcg PO DAILY 09/22/21 [History Confirmed 04/06/22] oxaprozin 600 mg tablet 600 mg PO BID 09/22/21 [History Confirmed 04/06/22] cyclobenzaprine 10 mg tablet 10 mg PO HS 11/11/21 [History Confirmed 04/06/22] omeprazole 20 mg capsule,delayed release 20 mg PO DAILY 11/11/21 [History Confirmed 04/06/22] oxymetazoline 0.05 % nasal spray 1 spray INTRANASAL ONCE PRN 11/11/21 [History Confirmed 04/06/22] aspirin 81 mg PO DAILY 11/30/21 [History Confirmed 04/06/22] atorvastatin 40 mg PO QHS 11/30/21 [History Confirmed 04/06/22] Is last menstrual period known: No Post menopausal: Yes Patient : No PFSH Medical History Acid reflux Alcohol use Arthritis Back pain Chronic cough Constipation Dysphagia Heartburn Hiatal hernia High cholesterol History of irregular heartbeat injection in hip Leg cramps Marijuana use Restless legs Smoker Wears glasses Surgical History History of appendectomy History of cataract surgery History of colonoscopy History of endoscopy History of tubal ligation Family History Mother Diabetes Heart disease Hypertension High cholesterol Sister Diabetes Heart disease High cholesterol Hypertension Father Diabetes Daughter Thyroid disorder Social History household members: spouse and other details: grandson number of children: 2 current occupational status: retired history of recent travel: No Smoking Status: Current every day smoker tobacco type: cigarettes alcohol intake: current alcohol intake frequency: a few times a month details: socially substance use type: does not use what type of physical activity do you participate in: none seatbelt use: always do you feel safe at home: Yes additional social history: - Isaak HPI: RYAN MAYBERRY, is a 66 F who presents to the office today for an update history and physical for an upcoming laparoscopic toupet procedure. Patient denies any recent hospitalizations or illnesses since her last visit in January. She denies any medications changes. She denies previous myocardial infarction, stroke or blood clots. She mentioned that if any object needs to be placed within her nose, the right side of the nose needs to be used. Patient is a smoker. Patient's previous history per Dr. Lux: RYAN MAYBERRY, is a 66 F who presents to the office today for surgical follow-up of upper and lower endoscopy. Combined endoscopy was performed on December 02, 2021. The colonoscopy was extraordinarily difficult. Nonthrombosed hemorrhoids identified. Tortuous colon. Additional examination was not recommended. The upper endoscopy demonstrated a 5 cm hiatal hernia. Her pathology showed mild gastritis H. pylori negative. Fragments of distal esophageal mucosa consistent with Izaguirre's esophagus. Chronic inflammation. No dysplasia. This was felt to be a long segment 5 cm in length. She had initially been referred to me by Dr Anastacio Lloyd with complaints of esophageal dysphagia HPI: RYAN MAYBERRY, is a 66 F who presents to the office today for surgical consultation regarding esophageal dysphagia. The patient is being referred by Dr Anastacio Lloyd and a written copy my surgical consult recommendations will be returned to him. On October 25, 2021 at the [facility] the patient had a barium swallow. This was felt to be normal. Patient does have a significant history of tobacco use. She has a chronic nonproductive cough. She claims to have a long-term history of reflux symptoms and previously was on famotidine with no relief. She is complaining of epigastric and retrosternal burning and sour brash sensation. Symptoms are worse when she bends over. She has been placed on omeprazole therapy which she takes in the morning. October 25, 2021 STUDY: X-RAY - ESOPHAGUS (BARIUM SWALLOW) WITH FLUOROSCOPY REASON FOR EXAM: Female, 66 years old. DYSPHAGIA TECHNIQUE: 16 view(s) of the esophagus were obtained following swallowing of barium. FLUOROSCOPY TIME (if supplied): (27 seconds) minutes/seconds COMPARISON: None. FINDINGS: There is no demonstrated esophageal foreign body. There is no demonstrated stricture or mucosal abnormality. Normal gastroesophageal junction, without a demonstrated hiatal hernia. The patient ingested a 12 mm tablet of barium without any difficulty. There is atherosclerotic calcification of the aortic arch with tortuosity of the descending aorta. Normal visualized pulmonary parenchyma. Normal visualized osseous structures of the thorax. RAD/Esophagus Dual Contrast IMPRESSION: Normal plain film x-ray examination (barium swallow) of the esophagus. Electronically Signed: Raghavendra Mobley MD at 12:51 EST , Service support , RYAN MAYBERRY, is a 66 F who presents to the office today for surgical follow-up of reflux disease and esophageal manometry that was performed for her on December 29, 2021. This study was difficult to interpret. 10 swallows were analyzed. 3 of the 10 were weak. There appeared to be incomplete bolus clearance with every swallow. The patient did require lorazepam to be given preprocedure in order to perform the procedure due to her anxiety. I have reviewed her barium swallow of October 25, 2021 which shows normal flow of her contrasted barium and normal movement of the barium tablet. It is pertinent that her symptoms on presentation are 1 of constant reflux. She will bend over and feel material in her throat. She has intermittent retrosternal discomfort. She has been on acid suppression for years. She gets incomplete relief. On her upper endoscopy she has 5 cm long Izaguirre's. Fortunately no dysplasia. ROS General General: No weight change, appetite, fatigue, colon cancer, breast cancer or weakness HEENT HEENT: Yes difficulty swallowing; No eye injury, eye surgery, swollen glands or hoarseness Additional Details: Last 6 months Endo Endocrine: No thyroid disease, diabetes mellitus, thyroid cancer, Hair loss, heat intolerance or cold intolerance Skin Skin: No rash or changing moles Musc Musculoskeletal: Yes arthritis; No back problems, rheumatoid arthritis, gout or joint pain Cardio Cardiovascular: Yes murmur; No pacemaker, heart disease, atrial fibrillation, high blood pressure, heart attack, heart stent, palpitations, shortness of breat with exertion or chest pain Psych Psychiatric: No depression, anxiety or hearing voices Resp Respiratory: No shortness of breath, No sleep apnea, Yes cough, No COPD, No asthma, No emphysema and No wheezing Gastro Gastrointestinal: No abdominal pain, No nausea or vomiting, No diarrhea, Yes constipation, No blood in stool, Yes acid reflux, No hemorrhoids, No ulcers, No gallbladder problem and No black,tarry stools Chandana Hematologic: No blood thinners, No blood disorders, No bleeding, No anemia and No blood clots Neuro Neurologic: No system reviewed and no additional complaints, except as documented, No as per HPI, No abnormal gait, No abnormal hearing, No abnormal movements, No abnormal speech, No behavioral changes, No burning sensations, No confusion, No convulsions, No disequilibrium, No dizziness, No localized weakness, No frequent falls, No headache(s), No lack of coordination, No loss of vision, No memory loss, No numbness, No other visual disturbances, No radicular pain, No restless legs, No sensory deficit, No syncope, Yes tingling (in toes), No tremor(s), No weakness and No other Exam Const General: cooperative, healthy appearing, comfortable and no acute distress [facility] Head: normal to inspection Eyes General: appearance normal, both eyes and all related structures Neck Neck: normal visual inspection Neck mass: No Resp Effort & Inspection: normal respiratory effort Auscultation: wheezes inspiratory wheezes and upper bilaterally Cardio Rate: regular rate Rhythm: regular rhythm GI Inspection: normal to inspection and obesity Palpation: soft Auscultation: normal bowel sounds Skin General: no rashes or lesions noted Neuro General: no focal motor deficits and CN's II-XI intact bilaterally Extrem General: normal to inspection Psych Appearance: grossly normal Affect: normal affect Assessment and Plan Assessment and Plan (1) Hiatal hernia with gastroesophageal reflux: Status: Acute Plan - Angelique OCHOA, PAYanC: Dr. Lux will plan to perform a laparoscopic repair of her hiatal hernia with a laparoscopic toupet. Procedure details, risks and benefits have been reviewed. Patient verbally understands and agrees with the plan. Diet instructions have been provided to the patient. Patient may continue her aspirin. I have re-examined the patient. There are no clinical changes since date of exam. Signature
[2022-04-11] MEDS: Lactated Ringers 1,000 ML 15 ML IV (06:15)
--- NOTE | 2022-04-11 07:07 | DCINST_ITS ---
Discharge Instructions Procedure General Surgery Diet Discharge Diet: - (Dietary instructions as provided on our detailed instruction sheet) Activity Discharge Activity: May Not Drive (for 3-5 days or while taking narcotic pain medicine.) May shower in (days): 1 Lifting Restrictions: 10 pounds Dressing / Incision Call your doctor if your incision/area has: Continuous Slow Oozing, Sudden Increased Bleeding, Increased Pain/ Swelling, Increased Redness and Foul Smelling Discharge Call your doctor if you observe: Fever of 101 or Higher Suture Line Care: Avoid Pulling/Pushing and Avoid Pinching/Bending Additional Dressing/Incision Instructions:: Change or remove dressing in 4 days. Leave steri-strips in place for 1 week. Follow Up Care Please Follow Up With: Kevin Lux MD When: Call [phone] to make an appointment to be seen in about 10 days. Test Results: Test results from this visit will be discussed in further detail at your follow-up appointment, if applicable. Discharge Plan Admission Primary Reason for Your Visit: Intractable gastroesophageal reflux disease with Izaguirre's esophagus Attending Provider: Kevin Lux Primary Care Provider: Anastacio Lloyd Discharge Orders/Prescriptions Prescriptions: New hydrocodone-acetaminophen 5-325 mg tablet 1 tab PO Q6H PRN (Reason: pain) 2 Days Qty: 8 RF: 0 Continued oxaprozin 600 mg tablet 600 mg PO BID RF: 0 cholecalciferol (vitamin D3) 50 mcg (2,000 unit) capsule 50 mcg PO DAILY RF: 0 omeprazole 20 mg capsule,delayed release(DR/EC) 20 mg PO DAILY RF: 0 cyclobenzaprine 10 mg tablet 10 mg PO HS RF: 0 oxymetazoline [12 Hour Nasal Relief [place]] 0.05 % spray,non-aerosol 1 spray intranasal ONCE PRN (Reason: DRY NOSE) RF: 0 atorvastatin 40 mg tablet 40 mg PO QHS RF: 0 aspirin 81 mg Tablet 81 mg PO DAILY RF: 0 Other Ambulatory Orders: 12 Lead EKG (Routine) Timeframe: [id number] Location: None Selected Ordered By: Dr. Kevin Lux Referrals / Follow Up: Anastacio Lloyd MD [Primary Care Provider] - Disposition Disposition (needs filled in before D/C Order can be placed): Home, Self Care
[2022-04-11] MEDS: Cefazolin 2 GM in 0.9% Normal Saline 100 ML IV (07:22)
[2022-04-11] MEDS: Bupivacaine Mpf 0.5% 30 ML VIAL (10:06)
[2022-04-11] MEDS: 0.9% Normal Saline (Pres. free 10 ML Vial (10:06)
--- NOTE | 2022-04-11 10:16 | OP.PCM_ITS ---
Problems Associated Problem List Diagnoses (1) Izaguirre's esophagus determined by biopsy: (2) Hiatal hernia with gastroesophageal reflux: (3) Acid reflux: Report of Operation Date of Procedure: 04/11/22 Pre-Operative Diagnosis: Intractable gastroesophageal reflux disease with Izaguirre's esophagus and hiatal hernia Post-Operative Diagnosis: Same Surgery/Procedure Performed:: Laparoscopic repair of hiatal hernia with lapar oscopic toupet procedure Description of Surgical Findings:: Timeout informed consent was obtained. 66-year-old female was taken to the operating placed upon the table underwent general endotracheal ovation anesthesia. Ancef 2 g given extremities preoperatively. Technically a clean contaminated case. She was placed in the low lithotomy position on a beanbag. The abdomen sterilely prepped and draped. Ioban draping was used as well. 0.5% Marcaine was initially used as a local anesthetic then made in the procedure with 20 cc of 0.5% Marcaine was diluted with 20 cc of saline. I used that form a left subcostal nerve block under laparoscopic visualization. At the beginning the procedure slightly in the right upper abdomen of the umbilicus I gained a 5 mm Visiport clean access to the abdomen the abdomen was initially insufflated with CO2 to a pressure of 10 mmHg pressure and then because of difficulties visualization I increase that to 15 mmHg pressure. A 10 mm port was placed in the left superior to umbilicus region then 2 more 5 mm trochars in the left subcostal area a trocar was used in the epigastric area to assist with then placement of a medium size Dia retractor. Then using noncrushing forceps was able to retract the stomach used a [place]nig scalpel to incise along the right gastrohepatic omentum transected that found the right siri dissected along the right siri over the anterior surface of the esophagus. I then took down the short gastrics using the [place] scalpel to mobilize the fundus of the stomach was able to gain access to the left siri and dissected along the left siri completely dissected that free was then able to preserve the vagus with the EG junction got access posterior to it and then I placed a Lily drain to help mobilize then for 6 to 8 cm within the distal mediastinum in a circumferential fashion I carefully and tediously dissected tissue free with harmonic scalpel completely freeing the distal esophagus. This gained at least 5 cm in length which I was unable to reduce into the abdomen. I then repaired the hiatus with simple sutures of 0 Ethibond. I used Telfa pledgets. 3 sutures were required to approximate the crura placed a 45 Telugu bougie confirming good position and patency. Then I took the fundus of the stomach Raptor posteriorly secured the posterior aspect of the stomach to the anterior crura with a 0 Ethibond. I then performed a toupet procedure approximating the esophagus to the epiphrenic ligament Portion of the fundus and then a running fashion of 3 cm performed the right side of that repair. At 270 degrees then I used the left side of the fundus and in a similar fashion to secure the apical suture to the stomach epiphrenic ligament into the esophagus and then in a running fashion at 270 degrees Approximated the fundus of the stomach to the esophagus. Excellent positioning I felt was achieved with good reduction of the stomach. All of this wrap was do ne on the esophagus cephalad to the previous gastric attachment site to the epiphrenic ligament. I then did an upper endoscopy report with the dictated in probation stomach looked unremarkable the posterior wrap nicely intact hemostasis intact there was absolutely no air leak that scope was completed and OG tube was used to decompress air. As mentioned before then under laparoscopic visualization I performed a left subcostal nerve block with the now 0.25% Marcaine. Movement Retractor removed the 10 mm trocar and used a 0 Vicryl in [id number] suture and a grainy needle to close that 10 mm port site. The abdomen was allowed to vigorously deflated with CO2 and I asked anesthesia to provide brief PEEP to help evaluate any mediastinal air. Trochars removed. Skin edges were approximated opted for Monocryl subdermal sutures. Steri-Strips Telfa OpSite dressings applied. Sponge and instrument and needle counts were reported to the surgeon to be correct. Specimens none. Drains none. Blood loss minimal. The patient tolerated the procedure well was taken to the recovery room in satisfactory addition without apparent complication Kevin Lux M.D., F.A.C.S. Surgeon: Kevin Lux Type of Anesthesia: General and Local Anesthesiologist: Kvng Montero
--- NOTE | 2022-04-11 16:41 | PCM.PN.SRG ---
Subjective Subjective Patient found sitting in chair, she feels very dizzy, she is quite sleepy and has been several ever since surgery. On further discussion with the patient she has had years of problems with dizziness. She claims that she had to go through rehabilitation. She does not describe currently taking any medication but she states that in the past she was on something. She states that the dizziness does tend to make her nauseated Objective Data Objective Data Vital Signs: Vital Signs Temp Pulse Resp BP Pulse Ox 97.5 F L 69 16 134/80 H 94 04/11/22 15:22 04/11/22 15:22 04/11/22 15:22 04/11/22 15:22 04/11/22 15:22 Oxygen Flow Rate (L/min) 2 Oxygen Delivery Method Room Air Weight: 178 lb 9.191 oz Body Mass Index (BMI) 27.9 Intake & Output: Intake and Output for Last 24 Hours 04/09/22 04/10/22 04/11/22 23:59 23:59 23:59 Intake Total 110 / 110 Balance 110 / 110 Lab / Micro Data Result Diagrams: 04/06/22 08:54 04/06/22 08:54 Assessment & Plan Assessment/Plan (1) Dizziness: PLAN: My current suspicion is that her dizziness is a complication from anesthesia and her chronic long-term history. She is seemingly is having a slow slow recovery from the anesthesia. I will not initiate her on clear liquids tonight secondary to her complaints of intermittent nausea related to the dizziness. I will try meclizine to assist with the dizziness. I will increase her IV fluids appropriately. Otherwise she appears to be stable. Kevin Lux M.D., F.A.C.S.
[2022-04-11] MEDS: Meclizine 12.5 MG Tablet PO (16:54)
[2022-04-11] MEDS: Atorvastatin Calcium 40 MG Tablet PO (20:43)
[2022-04-11] MEDS: cycloBENZAPRine HCl 10 MG Tablet PO (20:43)
[2022-04-11] MEDS: Ibuprofen 600 MG Tablet PO (20:43)
[2022-04-11] MEDS: Morphine 2 MG/ML Syringe IV (20:59)
[2022-04-11] MEDS: Lactated Ringers 1,000 ML 60 ML IV (22:13)
[2022-04-12 04:39] VITALS: BP 142/87; PULSE 90; RESP 18; TEMP 36.7; O2SAT 93
[2022-04-12] MEDS: Ibuprofen 600 MG Tablet PO ×2 (05:37→13:43)
--- NOTE | 2022-04-12 06:07 | PN.SURG_ITS ---
Subjective Subjective Patient is improved this morning. Tolerating ice chips. Her dizziness markedly improved with the meclizine. No current nausea. Abdominal discomfort nicely controlled. Objective Data Objective Data Vital Signs: Vital Signs Temp Pulse Resp BP Pulse Ox 98.0 F 90 18 142/87 H 93 04/12/22 04:39 04/12/22 04:39 04/12/22 04:39 04/12/22 04:39 04/12/22 04:39 Oxygen Flow Rate (L/min) 2 Oxygen Delivery Method Room Air Weight: 178 lb 9.191 oz Body Mass Index (BMI) 27.9 Intake & Output: Intake and Output for Last 24 Hours 04/10/22 04/11/22 04/12/22 23:59 23:59 23:59 Intake Total 588.75 / 588.75 Output Total 400 / 400 Balance 588.75 / 588.75 -400 / -400 Lab / Micro Data Result Diagrams: 04/06/22 08:54 04/06/22 08:54 Physical Exam Resp clear to auscultation bilaterally GI normal to inspection, nondistended, normoactive bowel sounds GI Narrative: Soft, slightly distended, laparoscopic sites clean and dry Assessment & Plan Assessment/Plan (1) 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 If she does well anticipate discharge later today. Progress and prognosis at this point felt to be good. Kevin Lux M.D., F.A.C.S.
[2022-04-12] MEDS: Pantoprazole Sodium 20 MG Tablet PO (08:30)
[2022-04-12 08:53] VITALS: BP 124/74; PULSE 87; RESP 16; TEMP 36.5; O2SAT 92
--- NOTE | 2022-04-12 11:10 | CASEMGMT ---
RN LEOBARDO NOTE: Intro role of CM to patient and , who is at bedside. [facility] form explained re: Observation status for treatment of laparoscopic repair of hiatel hernia with laparoscopic toupet procedure. Explained hospitalization will be paid per pt's insurance policy for Outpatient billing and condition will continue to be evaluated for Inpt necessity. Also let pt and know that [facility] sends paper in the billing packet with their phone number if questions arise. Discussed Pharmacy section of [facility] form and self administered medication guideline. Pt and verbalize understanding and do not have any questions. Form signed, copy made and placed in chart, and original given to pt. Pt and deny having any discharge planning needs or concerns. Deshawn HERRERA RN CM
[2022-04-12 11:24] VITALS: BP 124/86; PULSE 93; RESP 16; TEMP 37.2; O2SAT 94
== END 2022-04-12 14:29 | disposition home or self-care (01) ==
LOC: SDC 10:23 → MS3 10:23
PROVIDERS: Admitting Provider Surgery; PCP Family Medicine; Referring Provider Surgery; Visit Provider Surgery
PROC: (CPT 43325; principal; 2022-04-11 07:10)
DX: K44.9 Diaphragmatic hernia without obstruction or gangrene (principal); R42 Dizziness and giddiness; E78.00 Pure hypercholesterolemia, unspecified; F17.210 Nicotine dependence, cigarettes, uncomplicated; R13.10 Dysphagia, unspecified; K22.70 Barrett's esophagus without dysplasia; Z79.899 Other long term (current) drug therapy; Z79.82 Long term (current) use of aspirin; K21.9 Gastro-esophageal reflux disease without esophagitis; M19.90 Unspecified osteoarthritis, unspecified site; I25.2 Old myocardial infarction
CPT/HCPCS: 43281; 00790; 36415; 80048; 85027; 93005; 96374; 99218; 99251; J7120; G0378; G0463; J2405; J3490

== ENCOUNTER → 2022-05-23 | Outpatient (CLI) | payer MEDICARE, BC, SELFPAY ==
--- NOTE | 2022-05-23 12:41 | BI_ITS ---
MAMMOGRAPHY - BILATERAL SCREENING REASON FOR EXAM: Female, 66 years old. Routine annual screening examination. PERTINENT HISTORY: Non-contributory. TECHNIQUE: Digital bilateral breast celia (3D mammographic acquisition) in the CC and MLO projections. 2-D mediolateral oblique (MLO) and craniocaudad (CC) views of both breasts were obtained. CAD: Full Field Digital Mammography with Computer Added Detection was performed. COMPARISON: Comparison is made with prior study dated 10/22/2020. FINDINGS: Breast Composition: The breasts are almost entirely fatty. There are no dominant masses or suspicious calcifications. Stable small benign-appearing bilateral axillary lymph nodes. No other significant abnormalities are identified. There has been no significant change since the prior study. BI/SCRN MAMM (CAD)W/CELIA BILAT IMPRESSION: Stable bilateral screening mammogram. Yearly follow-up mammogram recommended. (A) ASSESSMENT CATEGORY: BIRADS Category 2: Benign. A letter regarding these results will be sent to the patient by the facility within 30 days. Approximately 10% of breast cancers are not detected by mammography. A normal mammogram should not delay biopsy of a clinically suspicious abnormality. [id number] Electronically Signed: Raghavendra Mobley MD at 14:05 EDT ,
--- NOTE | 2022-05-23 12:45 | BD_ITS ---
STUDY: DUAL ENERGY X-RAY ABSORPTIOMETRY / DXA REASON FOR EXAM: Female, 66 years old. V76.12ScreeningBONE DENSITY REASON FOR EXAM TECHNIQUE: Bone Mineral Density (BMD) measurements of lumbar spine and bilateral hips were obtained. COMPARISON: None. FINDINGS: Lumbar Spine (L1-L4): g/cm2 (0.756) / T-score (-2.6) / Z-score (-0.8) Findings are suggestive of osteoporosis with a high fracture risk. Left Femur Total: g/cm2 (0.801) / T-score (-1.2) / Z-score (0.2) Left Femoral Neck: g/cm2 (0.775) / T-score (-0.7) / Z-score (0.9) Right Femur Total: g/cm2 (0.738) / T-score (-1.7) / Z-score (-0.3) Right Femoral Neck: g/cm2 (0.610) / T-score (-2.2) / Z-score (-0.5) BD/Dexa Bone Density Study IMPRESSION: The patient is considered osteopenic as outlined below according to World Honorio Organization (WHO) criteria with a high fracture risk. Reference Information: The T-score is the number of standard deviations above or below the standard which is normal for young adults at their peak bone mineral density. The World Health Organization (WHO) interprets the T-scores as follows: Above -1 Normal bone density Between -1 and -2.5 Osteopenia Equal to / or below -2.5 Osteoporosis As a practical clinical guideline, osteopenia may be graded as follows: Mild -1 through -1.5 Moderate -1.6 through -2.0 Severe -2.1 through -2.4 The Z-score is the number of standard deviations above or below age-matched controls. A Z-score of less than -1.5 would be considered abnormal. References: 1. NIH Osteoporosis and Related Bone Diseases www osteo.org 2. International Society for Clinical Densitometry www iscd.org 3. National Osteoporosis Foundation www nof.org Electronically Signed: Raghavendra Mobley MD at 14:03 EDT ,
== END | disposition home or self-care (01) ==
LOC: OPBI 12:39
PROVIDERS: PCP Family Medicine; Referring Provider Nurse Practitioner Family; Visit Provider Nurse Practitioner Family
DX: Z12.31 Encounter for screening mammogram for malignant neoplasm of breast (principal); Z13.820 Encounter for screening for osteoporosis; M85.80 Other specified disorders of bone density and structure, unspecified site; Z78.0 Asymptomatic menopausal state
CPT/HCPCS: 77063; 77067; 77080

== ENCOUNTER → 2022-08-08 | Outpatient (CLI) | payer MEDICARE, BC, SELFPAY ==
[2022-08-08 17:01] LABS: Mucous, Urine 0 SEEN /hpf (<or=2+)
[2022-08-08 17:50] LABS: Absolute Lymphocyte Count 2.07 X10^3/uL (0.83-4.51); Absolute Neutrophil Count 3.1 X10^3/uL (2.0-7.7); Basophil# 0.06 X10^3/uL; Eosinophil# 0.19 X10^3/uL; Eosinophils% 3.2 % (0-5); Hematocrit 39.9 % (37-47); Hemoglobin 12.8 g/dL (12.0-15.0); Lymphocyte # 2.07 X10^3/ul (0.83-4.51); Mean Corp Hgb Conc 32.1 g/dL (32-36); Mean Corpuscular Hgb 30.8 pg (27.0-32.0); Mean Corpuscular Volume 96.1 fL (81-99); Mean Platelet Vol. 9.3 fl (6.2-12.0); Monocyte% 8.5 % (0-10); NRBC Flagged by Analyzer 0 % (0-5); Neutrophil # 3.07 X10^3/uL (2.7-7.7); Platelet Count 304 K/mm3 (150-450); RBC Distribution Width CV 13.2 % (11.6-14.6); RBC Distribution Width SD 46.6 fl (35.1-43.9); Red Blood Count 4.15 M/mm3 (4.2-5.4); White Blood Count 5.9 K/mm3 (4.4-11.0)
[2022-08-08 17:58] LABS: Color, Urine Yellow (Yellow); Glucose, Dipstick Normal (Normal); Ketone-Dipstick Negative (Negative); Leukocyte Esterase-Dipstick 25 /ul (Negative); Nitrite-Dipstick Negative (Negative); Occult Blood-Urine 10 /ul (Negative); Protein-Dipstick Negative (Negative); Urine Bilirubin Dipstick Negative (Negative); Urine Clarity Clear (Clear); Urine Urobilinogen Normal (Normal)
[2022-08-08 18:18] LABS: AST(SGOT) 18 U/L (15-37); Alanine Aminotransfer ALT/SGPT 27 U/L (13-56); Albumin, Serum 3.7 g/dL (3.2-5.0); Alkaline Phosphatase 113 U/L (45-117); Anion Gap 5 (5-15); BUN 21 mg/dL (7-18); BUN/Creat Ratio 22.2 RATIO (10-20); Calcium,Total 9.7 mg/dL (8.5-10.1); Chloride 109 mmol/L (98-107); Creatinine, Serum 0.95 mg/dL (0.55-1.02); EST Glomerular Filtration Rate 63 mL/min (>60); Est Glom Filt Rate - Afr Amer 76 mL/min (>60); Globulin 3.6 g/dL (2.2-4.2); Glucose 85 mg/dL (74-106); Potassium 4.2 mmol/L (3.5-5.1); Protein, Total 7.3 g/dL (6.4-8.2); Sodium Level 144 mmol/L (136-145)
[2022-08-08 18:19] LABS: Vitamin D,25 Hydroxy 79.5 ng/mL
[2022-08-08 18:35] LABS: Bacteria 1+ /hpf (None Seen); Red Blood Cells-Urine 0-5 SEEN /hpf (0-5); Squamous Epithelial Cells - UA 5-10 SEEN /hpf (5-10); White Blood Cells 0-5 SEEN /hpf (0-5)
== END | disposition home or self-care (01) ==
LOC: MTLAB 16:52
PROVIDERS: PCP Family Medicine; Referring Provider Family Medicine; Visit Provider Family Medicine
DX: E55.9 Vitamin D deficiency, unspecified (principal); I73.9 Peripheral vascular disease, unspecified; K21.9 Gastro-esophageal reflux disease without esophagitis; F17.200 Nicotine dependence, unspecified, uncomplicated
CPT/HCPCS: 36415; 80053; 81001; 82306; 85025

== ENCOUNTER → 2022-11-24 | Outpatient (CLI) | payer MEDICARE, BC, SELFPAY ==
--- NOTE | 2022-11-24 08:29 | RAD_ITS ---
STUDY: X-RAY - BILATERAL HIP REASON FOR EXAM: Female, 67 years old. HIP PAIN TECHNIQUE: 5 views of the hips. COMPARISON: None. FINDINGS: Right hip: Normal femoral head, neck, intertrochanteric region and visualized proximal femur. Normal acetabulum. There is mild articular joint space narrowing. Normal visualized superior and inferior pubic rami and ischial tuberosities. Left hip: There are moderate to severe osteoarthritic changes of the femoral head with marginal osteophyte formation. Normal acetabulum. There is severe articular joint space narrowing and secondary osteoarthritis. Normal visualized superior and inferior pubic rami and ischial tuberosities. No fractures are present. There is no demonstrated avascular necrosis. RAD/Hips B/L min 2 views w/ Pelvis IMPRESSION: 1. Mild narrowing of the right hip joint 2. Severe DJD and narrowing of the left hip joint Electronically Signed: Tez Everett MD at 12:18 EST ,
== END | disposition home or self-care (01) ==
LOC: MTRAD 08:27
PROVIDERS: PCP Family Medicine; Referring Provider Family Medicine; Visit Provider Family Medicine
DX: M16.0 Bilateral primary osteoarthritis of hip (principal)
CPT/HCPCS: 73521

== ENCOUNTER 2023-01-12 12:00 | Outpatient (RCR) | payer MEDICARE, BC, SELFPAY ==
--- NOTE | 2022-12-13 13:40 | HP.PTEVAL_ITS ---
Patient's Visit Information RYAN MAYBERRY is a 67 year old F referred to Physical Therapy by Dr. Yadiel Quinn DO with a diagnosis of DDD, LBP, OA L hip. Date of Evaluation: 12/13/22 Physical Therapist: Aron Patino, DPT, OCS, CSCS - Visit Plan Frequency: 2x /Week Duration: 4-6 Weeks Plan: 2x/week for 4-6 weeks starting aquatic therapy for.. NS core strength and posture, L hip ROM, quad and psoas stretching, piriformis stretch. LE strength and progression of HEP and water ex. Doing piriformis stretch, trunk rotation and pelvic tilt posterior via HEP today. May try land manual and ex after pool - Subjective Doctor wants her to work on her back before attempting MRI. Has L leg pain that doctor thinks is from my back. It has been there 4 years and is worsening. Has OA in L hip and spine from x ray. Groin pain is from hip and numbness burning in leg intermittently and in the whole leg at times. Too much walking and standing make leg worse. LBP hurts to lift and is worse in middle. Sleep is sometimes interrupted due to leg pain. Not employed. Basic ADLs are OK unless stands too long or lifts too many steps. Has to take a lot of breaks.Sits on floor to romansh. Sewing and readin are hobbies whcih are not affected. No regular exercises. Has had two injections in hip L which helped for over a year first one and a week second one. - Pain LBP Pain Intensity (Out of 10): 2 Pain Intensity Range: 0, 7 - Objective Stands L leg bent and off WB keeping hip in slight flexion and slightly hunched. Walks I with L LE antalgia and avoiding L hip extension at end of stance. Trasnfers I bed and chair. L hip PROM 90 flexion 30 ext rot, 5 IR and 0 ext all with pain at end range. L hip WFL. + L hip scour, - SLR, - Slump test. tightness in quad and psoas and HS and piriformis L >R. fair pelvic movement but stabilizes with an pelvic tilt. LB AROM ext painful and mod limited, flexion no pain and 25% limited, SB are without pain and 25% limited. strenngth L hip 3 with pain abd, ext flexion, R is 4-, knees are 4- and ankles 4/5. reflexes 1/3 patella and achilles B. Sensation LE to gross lgiht touch WNL to gross light touch. + L Margo and Jean Pierreir - Balance/Special Test Scores Oswestry Low Back Score: 19 - Goals Goal 1:: Pain LB and burning Leg 2/10 at worst and intermittent and 75% better Goal Time Frame: 4-6 Weeks Goal 2:: Sleep without waking at night due to pain Goal Time Frame: 4-6 Weeks Goal 3:: I management of hip and leg symptoms with exercises Goal Time Frame: 4-6 Weeks Goal 4:: oswestry scorre 5 or less. Goal Time Frame: 4-6 Weeks - Rehabilitation Potential Physical Therapy Diagnosis: Pain in leg from LB degeneration and L hip pain Rehabilitation Potential: Fair - Anticipated Interventions Patient/Client Instruction: Educate patient on: Condition, Plan of Care For the Purpose of:: To decrease pain, To increase ROM, To improve nutrient delivery to tissue, To increase tolerance to activity/condition/position, To improve ability of physical actions for home/community/work/leisure Therapeutic Exercise to Include: Strength training, Postural training, Flexibilty training, In an aquatic setting, Passive ROM, Active ROM For the Purpose of:: To decrease pain, To increase ROM, To improve muscle performance and motor function, To increase tolerance to activity/condition/position Manual Therapy Techniques to Include: Mobilization, Passive ROM, Soft tissue mobilization For the Purpose of:: To decrease pain, To increase ROM Thank you for the opportunity to evaluate your patient. For Medicare and Medicare HMO plans, please review the plan of care and approve it. It will need to be FAXED BACK to us at [phone] for Medicare purposes. For Medicare only, by signing this I certify the plan of care. Please let me know if there are questions or concerns regarding this plan of care. Physician Signature: Date:
--- NOTE | 2023-01-12 12:13 | HP.PTDCSUM ---
It has been my pleasure to treat RYAN MAYBERRY referred by Dr. Yadiel Quinn DO, with the diagnosis of DDD, LBP, OA L hip for a total of 8 visit(s). Discharge Date: 01/12/23 Please see the following information for a summary of their discharge status. Subjective: Making alot of proress. Only bothered now by walking long distance. However doesn't drag leg anymore for short distances. bending to clean and vaccuum is better but still up to 4/10 and goes away with rest. Sleep is OK. Does not hurt all day anymore. Doing home exercises 3x/day and it really helps. LBP Pain Intensity (Out of 10): 5 % Improvement: 75 Objective/Function: LB AROM improved adn without pain, just some groin pulling L. Walks well but avoids L hip extension likely due to hip degeneration. Improved oswestry. appears as if remaining pain is hip related and will f/u with doctor next week regarding options for this. Goal 1:: Pain LB and burning Leg 2/10 at worst and intermittent and 75% better Goal Progress: 75% Goal 2:: Sleep without waking at night due to pain Goal Progress: Goal Met Goal 3:: I management of hip and leg symptoms with exercises Goal Progress: Goal Met Goal 4:: oswestry scorre 5 or less. Goal Progress: Progressing Plan: d/c to HEP If there are questions or concerns regarding this patient's physical therapy, please feel free to call me at [phone]. Thank you for the referral of this patient. Sincerely, Aron Patino, DPT, OCS, CSCS Balance/Gait/Functional tests - Balance/Special Test Scores Oswestry Low Back Score: 15
== END 2023-01-12 14:52 | disposition home or self-care (01) ==
LOC: PT 12:00
PROVIDERS: PCP Family Medicine; Referring Provider Orthopaedic Surgery; Visit Provider Orthopaedic Surgery
DX: G57.02 Lesion of sciatic nerve, left lower limb (principal); M51.36 Other intervertebral disc degeneration, lumbar region; M16.12 Unilateral primary osteoarthritis, left hip
CPT/HCPCS: 97110; 97113; 97162; 97164

== ENCOUNTER → 2023-05-23 | Outpatient (CLI) | payer MEDICARE, BC, SELFPAY ==
[2023-05-23 18:56] LABS: ALB/GLOB Ratio 1.2 RATIO (0.9-2.4); AST(SGOT) 25 U/L (15-37); Alanine Aminotransfer ALT/SGPT 28 U/L (13-56); Albumin, Serum 3.9 g/dL (3.2-5.0); Alkaline Phosphatase 116 U/L (45-117); Anion Gap 7 (5-15); BUN 23 mg/dL (7-18); BUN/Creat Ratio 22.1 RATIO (10-20); Calcium,Total 9.7 mg/dL (8.5-10.1); Chloride 107 mmol/L (98-107); Creatinine, Serum 1.04 mg/dL (0.55-1.02); EST Glomerular Filtration Rate 56 mL/min (>60); Est Glom Filt Rate - Afr Amer 68 mL/min (>60); Globulin 3.3 g/dL (2.2-4.2); Glucose 81 mg/dL (74-106); Potassium 4.2 mmol/L (3.5-5.1); Protein, Total 7.2 g/dL (6.4-8.2); Sodium Level 141 mmol/L (136-145)
== END | disposition home or self-care (01) ==
LOC: MFPLAB 15:43
PROVIDERS: PCP Family Medicine; Visit Provider Family Medicine
DX: M81.0 Age-related osteoporosis without current pathological fracture (principal)
CPT/HCPCS: 36415; 80053; 82306

== ENCOUNTER → 2023-05-24 | Outpatient (CLI) | payer MEDICARE, BC, SELFPAY ==
--- NOTE | 2023-05-24 10:37 | BI_ITS ---
MAMMOGRAPHY - BILATERAL SCREENING 3-D TOMOSYNTHESIS REASON FOR EXAM: Female, 67 years old. Routine screening PERTINENT HISTORY: No significant family history. TECHNIQUE: 2-D mammograms and 3-D Tomosynthesis of the breast (s) were performed. CAD was performed. COMPARISON: 10/22/2020 FINDINGS: The breast composition is almost entirely fat. Scattered benign calcifications are seen. No dense spiculated masses or suspicious microcalcifications are identified. No architectural distortion is identified. There is no skin thickening or retraction. There has been no significant change since the prior study. BI/SCRN MAMM (CAD)W/CELIA BILAT IMPRESSION: No mammographic signs of malignancy. Routine yearly mammograms recommended. ASSESSMENT CATEGORY: BIRADS Category 1: Negative. A letter regarding these results will be sent to the patient by the facility within 30 days. FOLLOW UP RECOMMENDATION: Yearly follow up mammogram recommended. (A) Approximately 10% of breast cancers are not detected by mammography. A normal mammogram should not delay biopsy of a clinically suspicious abnormality. Electronically Signed: Ehsan Matthews MD at 11:58 EDT ,
== END | disposition home or self-care (01) ==
LOC: OPBI 10:35
PROVIDERS: PCP Family Medicine; Referring Provider Nurse Practitioner Women's Health; Visit Provider Nurse Practitioner Women's Health
DX: Z12.31 Encounter for screening mammogram for malignant neoplasm of breast (principal)
CPT/HCPCS: 77063; 77067

== ENCOUNTER → 2023-06-04 | Outpatient (CLI) | payer MEDICARE, BC, SELFPAY ==
--- NOTE | 2023-06-04 13:26 | CT_ITS ---
STUDY: LOW DOSE CT LUNG CANCER SCREENING REASON FOR EXAM: Female, 67 years old. One pack per day smoker x55 years RADIATION DOSAGE (If Supplied By Facility): CTDIvol = ( 3.02 ) mGy, DLP = ( 102.86 ) mGycm TECHNIQUE: No contrast was administered. Low dose technique was utilized (average mAS-38 and kVp 120). 1.25 mm axial source images with a slice interval of 1.25-mm were reconstructed in lung windows. 2.5 mm axial source images with a slice interval of 2.5-mm were reconstructed in lung windows. 5.0 mm axial source images with a slice interval of 5.0-mm were reconstructed in soft tissue windows. COMPARISON: 11/11/2021 FINDINGS: Lung windows show the lungs to be expanded normally. Chronic interstitial changes noted in both lung lux without organizing infiltrate, effusion, or suspicious noncalcified mass or nodule. There is evidence of peribronchial thickening consistent with chronic bronchitis. Limited soft tissue windows show a 5 mm low-density thyroid nodule. No suspicious axillary, mediastinal, or perihilar adenopathy. There are calcified coronary vessels. Limited cuts through the upper abdomen do not show suspicious abnormality. Bony structures show degenerative change. CT/Low Dose CT Lung Screening IMPRESSION: Lung-RADS category 2 - Continue annual screening with LDCT in 12 months. IMPORTANT NOTES FOR USE: ACR Lung-RADS Version 1.1 Assessment Categories Release Date: 2018 Category: Coded 0-4 bases on nodule(s) with highest degree of suspicion. Negative screen is defined as categories 1 and 2; a positive screen is defined as categories 3 and 4. Category 3 and 4A nodules that are unchanged on interval CT should be coded as category 2, and individuals returned to screening in 12 months. Category 4X: Category 3 or 4 nodules with additional imaging findings that increase the suspicion of lung cancer, such as spiculation, GGN that doubles in size in 1 year, enlarged lymph notes, etc. Category Modifiers: S (significant finding unrelated to lung cancer) Electronically Signed: Ehsan Matthews MD at 11:25 EDT ,
== END | disposition home or self-care (01) ==
LOC: CT 13:26
PROVIDERS: PCP Family Medicine; Referring Provider Family Medicine; Visit Provider Family Medicine
DX: Z12.2 Encounter for screening for malignant neoplasm of respiratory organs (principal); F17.210 Nicotine dependence, cigarettes, uncomplicated
CPT/HCPCS: 71271

== ENCOUNTER → 2023-06-21 | Outpatient (CLI) | payer MEDICARE, BC, SELFPAY ==
[2023-06-21 12:22] LABS: Anion Gap 4 (5-15); BUN 22 mg/dL (7-18); BUN/Creat Ratio 21.4 RATIO (10-20); Calcium,Total 9.2 mg/dL (8.5-10.1); Chloride 111 mmol/L (98-107); Creatinine, Serum 1.03 mg/dL (0.55-1.02); EST Glomerular Filtration Rate 57 mL/min (>60); Est Glom Filt Rate - Afr Amer 69 mL/min (>60); Glucose 107 mg/dL (74-106); Potassium 3.8 mmol/L (3.5-5.1); Sodium Level 142 mmol/L (136-145)
== END | disposition home or self-care (01) ==
LOC: MFPLAB 10:35
PROVIDERS: PCP Family Medicine; Visit Provider Family Medicine
DX: N28.9 Disorder of kidney and ureter, unspecified (principal)
CPT/HCPCS: 36415; 80048

== ENCOUNTER → 2023-11-20 | Outpatient (CLI) | payer MEDICARE, BC, SELFPAY ==
[2023-11-20 14:14] LABS: Mucous, Urine 0 SEEN /hpf (<or=2+); Red Blood Cells-Urine 0 SEEN /hpf (0-5)
[2023-11-20 15:54] LABS: Absolute Neutrophil Count 3.3 X10^3/uL (2.0-7.7); Basophil# 0.05 X10^3/uL; Basophil% 0.9 % (0-1); Eosinophil# 0.14 X10^3/uL; Eosinophils% 2.5 % (0-5); Hematocrit 39.1 % (37-47); Lymphocyte % 29.9 % (19-41); Mean Corp Hgb Conc 33.2 g/dL (32-36); Mean Corpuscular Hgb 32.5 pg (27.0-32.0); Mean Corpuscular Volume 97.8 fL (81-99); Mean Platelet Vol. 9.5 fl (6.2-12.0); Monocyte# 0.44 X10^3/uL; Monocyte% 7.7 % (0-10); NRBC Flagged by Analyzer 0 % (0-5); Neutrophil # 3.34 X10^3/uL (2.7-7.7); Neutrophil % 58.8 % (47-70); Platelet Count 293 K/mm3 (150-450); RBC Distribution Width CV 12.3 % (11.6-14.6); RBC Distribution Width SD 44.2 fl (35.1-43.9); White Blood Count 5.7 K/mm3 (4.4-11.0)
[2023-11-20 16:03] LABS: Color, Urine Yellow (Yellow); Glucose, Dipstick Normal (Normal); Ketone-Dipstick Negative (Negative); Leukocyte Esterase-Dipstick 25 /ul (Negative); Nitrite-Dipstick Positive (Negative); Occult Blood-Urine 25 /ul (Negative); Protein-Dipstick Negative (Negative); Urine Bilirubin Dipstick Negative (Negative); Urine Clarity Sl. Cloudy (Clear); Urine Urobilinogen Normal (Normal)
[2023-11-20 16:25] LABS: Vitamin D,25 Hydroxy 97.7 ng/mL
[2023-11-20 16:31] LABS: Bacteria 2+ /hpf (None Seen); Squamous Epithelial Cells - UA 0-5 SEEN /hpf (5-10); White Blood Cells 0-5 SEEN /hpf (0-5)
[2023-11-20 16:40] LABS: ALB/GLOB Ratio 1.1 RATIO (0.9-2.4); AST(SGOT) 24 U/L (15-37); Alanine Aminotransfer ALT/SGPT 23 U/L (13-56); Albumin, Serum 3.8 g/dL (3.2-5.0); Alkaline Phosphatase 117 U/L (45-117); Anion Gap 5 (5-15); BUN 20 mg/dL (7-18); BUN/Creat Ratio 18.2 RATIO (10-20); Calcium,Total 9.6 mg/dL (8.5-10.1); Chloride 110 mmol/L (98-107); Cholesterol 118 mg/dL (200); EST Glomerular Filtration Rate 52 mL/min (>60); Est Glom Filt Rate - Afr Amer 64 mL/min (>60); Globulin 3.4 g/dL (2.2-4.2); Glucose 74 mg/dL (74-106); High Density Lipoprotein 46 mg/dL; Potassium 4.4 mmol/L (3.5-5.1); Protein, Total 7.2 g/dL (6.4-8.2); Sodium Level 142 mmol/L (136-145); Triglycerides 99 mg/dL; Uric Acid 2.8 mg/dL (2.6-6.0); Very Low Density Lipoprotein 20 mg/dL (5-40)
== END | disposition home or self-care (01) ==
LOC: MFPLAB 14:12
PROVIDERS: PCP Family Medicine; Visit Provider Family Medicine
DX: E78.5 Hyperlipidemia, unspecified (principal); E55.9 Vitamin D deficiency, unspecified; N28.9 Disorder of kidney and ureter, unspecified
CPT/HCPCS: 36415; 80053; 80061; 81001; 82306; 84550; 85025

== ENCOUNTER → 2024-01-01 | Outpatient (CLI) | payer MEDICARE, BC, SELFPAY | END | disposition home or self-care (01) | LOC: LABSPEC 16:26 | PROVIDERS: PCP Family Medicine; Referring Provider Nurse Practitioner Women's Health; Visit Provider Nurse Practitioner Women's Health | DX: R30.0 Dysuria (principal) | CPT/HCPCS: 87077; 87086; 87088; 87186 ==

== ENCOUNTER → 2024-02-18 | Outpatient (CLI) | payer MEDICARE, BC, SELFPAY | END | disposition home or self-care (01) | LOC: LABSPEC 13:48 | PROVIDERS: PCP Family Medicine; Referring Provider Nurse Practitioner Women's Health; Visit Provider Nurse Practitioner Women's Health | DX: R30.0 Dysuria (principal) | CPT/HCPCS: 87077; 87086; 87088; 87186 ==

== ENCOUNTER → 2024-05-26 | Outpatient (CLI) | payer MEDICARE, BC, SELFPAY ==
--- NOTE | 2024-05-26 11:48 | BI_ITS ---
MAMMOGRAPHY - BILATERAL SCREENING REASON FOR EXAM: Female, 68 years old. Routine annual screening examination. PERTINENT HISTORY: Non-contributory. TECHNIQUE: Digital bilateral breast celia (3D mammographic acquisition) in the CC and MLO projections. 2-D mediolateral oblique (MLO) and craniocaudad (CC) views of both breasts were obtained. CAD: Full Field Digital Mammography with Computer Added Detection was performed. COMPARISON: Comparison is made with prior study dated May 24, 2023 and May 23, 2022. FINDINGS: Breast Composition: The breasts are almost entirely fatty. There are no dominant masses or suspicious calcifications. No other significant abnormalities are identified. There has been no significant change since the prior study. BI/SCRN MAMM (CAD)W/CELIA BILAT IMPRESSION: Stable bilateral screening mammogram. Yearly follow-up mammogram recommended. (A) ASSESSMENT CATEGORY: BIRADS Category 1: Negative. A letter regarding these results will be sent to the patient by the facility within 30 days. Approximately 10% of breast cancers are not detected by mammography. A normal mammogram should not delay biopsy of a clinically suspicious abnormality. [id number] Electronically Signed: Raghavendra Mobley MD at 12:46 EDT ,
== END | disposition home or self-care (01) ==
LOC: OPBI 11:48
PROVIDERS: PCP Family Medicine; Referring Provider Nurse Practitioner Women's Health; Visit Provider Nurse Practitioner Women's Health
DX: Z12.31 Encounter for screening mammogram for malignant neoplasm of breast (principal)
CPT/HCPCS: 77063; 77067

== ENCOUNTER → 2024-05-27 | Outpatient (CLI) | payer MEDICARE, BC, SELFPAY ==
[2024-05-27 10:54] LABS: Mucous, Urine 0 SEEN /hpf (<or=2+); Red Blood Cells-Urine 0 SEEN /hpf (0-5); White Blood Cells 0 SEEN /hpf (0-5)
[2024-05-27 15:10] LABS: Absolute Lymphocyte Count 1.38 X10^3/uL (0.83-4.51); Absolute Neutrophil Count 4.2 X10^3/uL (2.0-7.7); Basophil# 0.04 X10^3/uL; Basophil% 0.6 % (0-1); Eosinophil# 0.13 X10^3/uL; Eosinophils% 2.1 % (0-5); Hematocrit 38.8 % (37-47); Hemoglobin 12.3 g/dL (12.0-15.0); Lymphocyte # 1.38 X10^3/ul (0.83-4.51); Lymphocyte % 22.1 % (19-41); Mean Corp Hgb Conc 31.7 g/dL (32-36); Mean Corpuscular Hgb 30.8 pg (27.0-32.0); Mean Corpuscular Volume 97.2 fL (81-99); Mean Platelet Vol. 9.5 fl (6.2-12.0); Monocyte# 0.52 X10^3/uL; Monocyte% 8.3 % (0-10); NRBC Flagged by Analyzer 0 % (0-5); Neutrophil # 4.16 X10^3/uL (2.7-7.7); Neutrophil % 66.6 % (47-70); Platelet Count 272 K/mm3 (150-450); RBC Distribution Width CV 12.6 % (11.6-14.6); RBC Distribution Width SD 44.9 fl (35.1-43.9); Red Blood Count 3.99 M/mm3 (4.2-5.4); White Blood Count 6.3 K/mm3 (4.4-11.0)
[2024-05-27 15:25] LABS: Vitamin B12 595 pg/mL (211-911); Vitamin D,25 Hydroxy 89.6 ng/mL
[2024-05-27 15:50] LABS: ALB/GLOB Ratio 1.1 RATIO (0.9-2.4); AST(SGOT) 24 U/L (15-37); Alanine Aminotransfer ALT/SGPT 29 U/L (13-56); Albumin, Serum 3.5 g/dL (3.2-5.0); Alkaline Phosphatase 98 U/L (45-117); Anion Gap 7 (5-15); BUN 21 mg/dL (7-18); BUN/Creat Ratio 19.1 RATIO (10-20); Calcium,Total 9.7 mg/dL (8.5-10.1); Chloride 109 mmol/L (98-107); Cholesterol 108 mg/dL (200); EST Glomerular Filtration Rate 52 mL/min (>60); Est Glom Filt Rate - Afr Amer 63 mL/min (>60); Ferritin 25 ng/mL (8-252); Globulin 3.3 g/dL (2.2-4.2); Glucose 96 mg/dL (74-106); High Density Lipoprotein 43 mg/dL; Iron 82 ug/dL (50-170); Iron Binding Capacity,Total 305 ug/dL (250-450); Potassium 3.9 mmol/L (3.5-5.1); Protein, Total 6.8 g/dL (6.4-8.2); Sodium Level 142 mmol/L (136-145); Triglycerides 104 mg/dL; Very Low Density Lipoprotein 21 mg/dL (5-40)
[2024-05-27 16:02] LABS: Color, Urine Yellow (Yellow); Glucose, Dipstick Normal (Normal); Ketone-Dipstick Negative (Negative); Leukocyte Esterase-Dipstick Negative /ul (Negative); Nitrite-Dipstick Negative (Negative); Occult Blood-Urine Negative /ul (Negative); Protein-Dipstick Negative (Negative); Specific Gravity, Urine 1.005 (1.002-1.030); Urine Bilirubin Dipstick Negative (Negative); Urine Clarity Clear (Clear); Urine Urobilinogen Normal (Normal)
[2024-05-27 16:16] LABS: Protein, Urine (Random) < 6.0 mg/dL (<11.9); Protein:Creat Ratio 226 mg/g CRE (0-200)
[2024-05-27 16:21] LABS: Bacteria RARE /hpf (None Seen); Squamous Epithelial Cells - UA 0-5 SEEN /hpf (5-10)
== END | disposition home or self-care (01) ==
LOC: MFPLAB 10:50
PROVIDERS: PCP Family Medicine; Visit Provider Family Medicine
DX: N18.30 Chronic kidney disease, stage 3 unspecified (principal); D63.1 Anemia in chronic kidney disease; E78.5 Hyperlipidemia, unspecified
CPT/HCPCS: 80053; 80061; 81001; 82306; 82570; 82607; 82728; 82746; 83540; 83550; 84156; 85025

== ENCOUNTER → 2024-06-04 | Outpatient (CLI) | payer MEDICARE, BC, SELFPAY ==
--- NOTE | 2024-06-04 12:44 | BD_ITS ---
STUDY: DUAL ENERGY X-RAY ABSORPTIOMETRY / DXA REASON FOR EXAM: Female, 68 years old. 733.00OsteoporosisBONE DENSITY REASON FOR EXAM TECHNIQUE: Bone Mineral Density (BMD) measurements of lumbar spine and bilateral hips were obtained. COMPARISON: Comparison is made with prior study May 23, 2022. FINDINGS: Lumbar Spine (L1-L4): g/cm2 (0.650) / T-score (-3.0) / Z-score (-1.4) Findings are suggestive of osteoporosis with a high fracture risk. Left Femur Total: g/cm2 (0.795) / T-score (-1.2) / Z-score (0.2) Left Femoral Neck: g/cm2 (0.730) / T-score (-1.1) / Z-score (0.7) Right Femur Total: g/cm2 (0.727) / T-score (-1.8) / Z-score (-0.3) Right Femoral Neck: g/cm2 (0.587) / T-score (-2.4) / Z-score (-0.6) The T-Scores on the most recent prior examination were: Lumbar Spine (L1-L4): There has been worsening of bone density since the previous examination. Left Femur Total: which represents a worsening of 0.8%. Right Femur Total: which represents a worsening of 1.5%. BD/Dexa Bone Density Study IMPRESSION: The patient is considered osteoporotic as outlined below according to World Honorio Organization (WHO) criteria with a high fracture risk. There has been worsening of bone density since the previous examination. Reference Information: The T-score is the number of standard deviations above or below the standard which is normal for young adults at their peak bone mineral density. The World Health Organization (WHO) interprets the T-scores as follows: Above -1 Normal bone density Between -1 and -2.5 Osteopenia Equal to / or below -2.5 Osteoporosis As a practical clinical guideline, osteopenia may be graded as follows: Mild -1 through -1.5 Moderate -1.6 through -2.0 Severe -2.1 through -2.4 The Z-score is the number of standard deviations above or below age-matched controls. A Z-score of less than -1.5 would be considered abnormal. References: 1. NIH Osteoporosis and Related Bone Diseases www osteo.org 2. International Society for Clinical Densitometry www iscd.org 3. National Osteoporosis Foundation www nof.org Electronically Signed: Raghavendra Mobley MD at 14:40 EDT ,
== END | disposition home or self-care (01) ==
LOC: OPBD 12:44
PROVIDERS: PCP Family Medicine; Referring Provider Family Medicine; Visit Provider Family Medicine
DX: M81.0 Age-related osteoporosis without current pathological fracture (principal)
CPT/HCPCS: 77080

== ENCOUNTER → 2024-06-06 | Outpatient (CLI) | payer MEDICARE, BC, SELFPAY ==
--- NOTE | 2024-06-06 14:45 | CT_ITS ---
EXAM: CT CHEST, LUNG CANCER SCREENING WITHOUT INTRAVENOUS CONTRAST CLINICAL INDICATION: smoker TECHNIQUE: Helically acquired images were obtained of the chest without intravenous contrast using low dose (LDCT) lung cancer screening protocol. This CT exam was performed using one or more of the following dose reduction techniques: automated exposure control, adjustment of the mA and/or kV according to patient size, and/or use of iterative reconstruction technique. COMPARISON: CT Lung Cancer Screening dated 06/04/2023 FINDINGS: LUNGS AND PLEURAL SPACES: Mild diffuse centrilobular pulmonary emphysema. No evidence of a lung mass or nodule. No pleural effusion or pneumothorax. HEART: Normal. No pericardial effusion. Normal heart size. Coronary artery calcification is present. MEDIASTINUM: Normal. No mediastinal or hilar adenopathy. Esophagus is unremarkable. No hiatal hernia. THYROID: Normal. No thyroid nodules or calcification. BONES/JOINTS: No suspicious lytic or blastic abnormality. VASCULATURE: No aortic aneurysm. LYMPH NODES: Normal. No enlarged lymph nodes. CT/Low Dose CT Lung Screening IMPRESSION: 1. No evidence of a lung mass or nodule. 2. Mild pulmonary emphysema. Lung-RADS score: 1S - Negative. Additional clinically significant or potentially clinically significant findings are described. Recommend continued annual screening with a low-dose CT (LDCT) in 12 months. Electronically Signed: Fidencio Phillips MD at 17:00 EDT ,
== END | disposition home or self-care (01) ==
LOC: CT 14:45
PROVIDERS: PCP Family Medicine; Referring Provider Family Medicine; Visit Provider Family Medicine
DX: Z12.2 Encounter for screening for malignant neoplasm of respiratory organs (principal); F17.210 Nicotine dependence, cigarettes, uncomplicated
CPT/HCPCS: 71271

== ENCOUNTER → 2024-09-01 | Outpatient (CLI) | payer MEDICARE, BC, SELFPAY ==
--- NOTE | 2024-09-01 11:00 | MRI_ITS ---
HISTORY: Low back pain, left leg pain. TECHNIQUE: Multiplanar and multisequence MR images of the lumbar spine were obtained without intravenous contrast. 161 images. COMPARISON: XR 12/06/2022. FINDINGS: VERTEBRAE: Vertebral body heights maintained. Vertebral body hemangiomas incidentally noted at T12 and L4. Mild degenerative endplate changes at L3-4, L4-5, and L5-S1. ALIGNMENT: Chronic mild anterolisthesis of L4-5. CONUS: Normal morphology and position of the conus medullaris at the lower T12 level. INTERVERTEBRAL DISCS: T12-L1: Minimal disc bulge without significant central canal stenosis or foraminal narrowing based on the sagittal images. L1-2: Mild disc bulge with superimposed right subarticular and foraminal disc protrusion and facet arthropathy resulting in minimal narrowing of the thecal sac and mild right foraminal narrowing. L2-3: Mild disc bulge with facet arthropathy resulting in mild central canal stenosis and bilateral foraminal narrowing. L3-4: Mild disc bulge with facet arthropathy resulting in mild central canal stenosis, mild left foraminal narrowing, and moderate right foraminal narrowing with right L3 nerve root abutment/impingement. L4-5: Mild disc bulge with facet arthropathy resulting in mild central canal stenosis and bilateral foraminal narrowing. L5-S1: Mild disc bulge with facet arthropathy resulting in mild bilateral foraminal narrowing. No significant central canal stenosis. SOFT TISSUES: No paraspinal fluid collection. Mild posterior subcutaneous edema. Distended urinary bladder. MRI/Spine Lumbar (Routine) IMPRESSION: Multilevel degenerative disc disease as above. Electronically Signed: Imani Harrell MD at 15:19 EDT ,
== END | disposition home or self-care (01) ==
LOC: MRI 10:30
PROVIDERS: PCP Family Medicine; Referring Provider Orthopaedic Surgery; Visit Provider Orthopaedic Surgery
DX: M51.369 Other intervertebral disc degeneration, lumbar region without mention of lumbar back pain or lower extremity pain (principal)
CPT/HCPCS: 72148

== ENCOUNTER → 2024-09-15 | Outpatient (CLI) | payer MEDICARE, BC, SELFPAY ==
[2024-09-15 09:49] LABS: Absolute Lymphocyte Count 1.51 X10^3/uL (0.83-4.51); Basophil# 0.04 X10^3/uL; Basophil% 0.6 % (0-1); Eosinophil# 0.32 X10^3/uL; Hematocrit 38.7 % (37-47); Hemoglobin 12.3 g/dL (12.0-15.0); Lymphocyte # 1.51 X10^3/ul (0.83-4.51); Lymphocyte % 23.7 % (19-41); Mean Corp Hgb Conc 31.8 g/dL (32-36); Mean Corpuscular Hgb 30.9 pg (27.0-32.0); Mean Corpuscular Volume 97.2 fL (81-99); Mean Platelet Vol. 9.3 fl (6.2-12.0); Monocyte# 0.48 X10^3/uL; Monocyte% 7.5 % (0-10); NRBC Flagged by Analyzer 0 % (0-5); Neutrophil # 3.99 X10^3/uL (2.7-7.7); Neutrophil % 62.9 % (47-70); Platelet Count 304 K/mm3 (150-450); RBC Distribution Width CV 12.4 % (11.6-14.6); RBC Distribution Width SD 44.3 fl (35.1-43.9); Red Blood Count 3.98 M/mm3 (4.2-5.4); White Blood Count 6.4 K/mm3 (4.4-11.0)
[2024-09-15 10:12] LABS: Protein, Urine (Random) 9.1 mg/dL (<11.9); Protein:Creat Ratio 82 mg/g CRE (0-200)
[2024-09-15 10:25] LABS: PTHIN 78.3 pg/mL (18.4-80.1)
[2024-09-15 10:28] LABS: Vitamin D,25 Hydroxy 85.6 ng/mL
[2024-09-15 10:33] LABS: ALB/GLOB Ratio 1.2 RATIO (0.9-2.4); AST(SGOT) 21 U/L (15-37); Alanine Aminotransfer ALT/SGPT 23 U/L (13-56); Albumin, Serum 3.7 g/dL (3.2-5.0); Alkaline Phosphatase 96 U/L (45-117); Anion Gap 1 (5-15); BUN 23 mg/dL (7-18); BUN/Creat Ratio 22.3 RATIO (10-20); Chloride 113 mmol/L (98-107); Cholesterol 111 mg/dL (200); Creatinine, Serum 1.03 mg/dL (0.55-1.02); EST Glomerular Filtration Rate 56 mL/min (>60); Est Glom Filt Rate - Afr Amer 68 mL/min (>60); Globulin 3.2 g/dL (2.2-4.2); Glucose 90 mg/dL (74-106); High Density Lipoprotein 47 mg/dL; Potassium 4.2 mmol/L (3.5-5.1); Protein, Total 6.9 g/dL (6.4-8.2); Sodium Level 142 mmol/L (136-145); Triglycerides 85 mg/dL; Very Low Density Lipoprotein 17 mg/dL (5-40)
== END | disposition home or self-care (01) ==
PROVIDERS: PCP Family Medicine; Referring Provider Family Medicine; Visit Provider Family Medicine
DX: N18.30 Chronic kidney disease, stage 3 unspecified (principal); D64.9 Anemia, unspecified; E78.5 Hyperlipidemia, unspecified
CPT/HCPCS: 36415; 80053; 80061; 82306; 82570; 83970; 84156; 85025

== ENCOUNTER → 2024-11-10 | Outpatient (CLI) | payer MEDICARE, BC, SELFPAY ==
--- NOTE | 2024-11-10 11:48 | CT_ITS ---
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 2-D reformats were performed by the technologist. CTDIvol = ( 13.26 ) mGy, DLP = ( 824.00 ) mGycm This CT exam was performed using one or more of the following dose reduction techniques: automated exposure control, adjustment of the mA and/or kV according to patient size, and/or use of iterative reconstruction technique. COMPARISON: No relevant prior studies available. FINDINGS: BONES/JOINTS: Severe left hip osteoarthrosis. At least a moderate-sized joint effusion. No acute or healing fracture. There is grade 1 degenerative anterolisthesis of L4 on L5. There is at least moderate degenerative disease at and L5-S1 and at least mflj-pm-gleihoof disease at L4-5. No unusual lytic lesions of bone. SOFT TISSUES: Unremarkable. No soft tissue swelling or gas. No radiopaque foreign body. No soft tissue mass. CT/Extremity Lower without Contra IMPRESSION: Preoperative planning study showing severe left hip osteoarthrosis with at least a moderate-sized left hip joint effusion. Electronically Signed: Alen Fermin MD at 12:22 EST ,
[2024-11-10 12:41] LABS: Absolute Lymphocyte Count 1.56 X10^3/uL (0.83-4.51); Absolute Neutrophil Count 3.3 X10^3/uL (2.0-7.7); Basophil# 0.05 X10^3/uL; Basophil% 0.9 % (0-1); Eosinophil# 0.15 X10^3/uL; Eosinophils% 2.7 % (0-5); Hematocrit 37.8 % (37-47); Hemoglobin 11.9 g/dL (12.0-15.0); Lymphocyte # 1.56 X10^3/ul (0.83-4.51); Lymphocyte % 28.2 % (19-41); Mean Corp Hgb Conc 31.5 g/dL (32-36); Mean Corpuscular Hgb 30.3 pg (27.0-32.0); Mean Corpuscular Volume 96.2 fL (81-99); Mean Platelet Vol. 9.1 fl (6.2-12.0); Monocyte# 0.46 X10^3/uL; Monocyte% 8.3 % (0-10); NRBC Flagged by Analyzer 0 % (0-5); Neutrophil # 3.29 X10^3/uL (2.7-7.7); Neutrophil % 59.5 % (47-70); Platelet Count 287 K/mm3 (150-450); RBC Distribution Width CV 12.1 % (11.6-14.6); RBC Distribution Width SD 42.5 fl (35.1-43.9); Red Blood Count 3.93 M/mm3 (4.2-5.4); White Blood Count 5.5 K/mm3 (4.4-11.0)
[2024-11-10 12:49] LABS: Prothrombin Time (Protime)PT. 13.1 SECONDS (11.7-14.9)
[2024-11-10 12:50] LABS: Partial Thromboplast Time 25.5 Seconds (24.1-36.2)
[2024-11-10 13:07] LABS: Anion Gap 2 (5-15); BUN 28 mg/dL (7-18); Calcium,Total 10.2 mg/dL (8.5-10.1); Chloride 109 mmol/L (98-107); Creatinine, Serum 1.22 mg/dL (0.55-1.02); EST Glomerular Filtration Rate 46 mL/min (>60); Est Glom Filt Rate - Afr Amer 56 mL/min (>60); Glucose 98 mg/dL (74-106); Magnesium 1.8 mg/dL (1.6-2.6); Potassium 4.6 mmol/L (3.5-5.1); Sodium Level 141 mmol/L (136-145)
[2024-11-10 13:14] LABS: Hemoglobin A1c 5.7 % (3.8-5.6)
[2024-11-13 10:08] LABS: Cotinine Screen Blood <1.0 ng/mL (.); Fructosamine 231 umol/L (0-285); Nicotine Blood <1.0 ng/mL (.)
== END | disposition home or self-care (01) ==
PROVIDERS: PCP Family Medicine; Referring Provider Orthopaedic Surgery; Visit Provider Orthopaedic Surgery
DX: Z01.818 Encounter for other preprocedural examination (principal); M16.12 Unilateral primary osteoarthritis, left hip
CPT/HCPCS: 36415; 73700; 80048; 80323; 82985; 83036; 83735; 85025; 85610; 85730; 86850; 86900; 86901; 87081; G0480

== ENCOUNTER 2024-11-18 06:06 | Day surgery (SDC) | payer MEDICARE, BC, SELFPAY ==
[2024-11-03 09:06] LABS: Cotinine Screen Blood <1.0 ng/mL (.); Nicotine Blood <1.0 ng/mL (.)
[2024-11-18] VITALS (18 sets, daily range): BP systolic 93–165; BP diastolic 66–100; PULSE 55–82; RESP 9–16; TEMP 2.6–36.7; O2SAT 95–100; BMI 28.3
[2024-11-18] MEDS: Lactated Ringers 1,000 ML 999 ML IV (06:39)
[2024-11-18] MEDS: Lactated Ringers 1,000 ML 100 ML IV (06:39)
[2024-11-18] MEDS: Acetaminophen 500 MG Tablet 1000 MG PO ×2 (06:40→14:13)
[2024-11-18] MEDS: Scopolamine 1mg/72hr Patch 1 PATCH TD (06:40)
[2024-11-18] MEDS: Magnesium 2 GM for ERAS IV (06:41)
[2024-11-18] MEDS: Gabapentin 600 MG Tablet PO (06:41)
[2024-11-18 07:01] LABS: Bedside Glucose 67 mg/dL (74-106)
--- NOTE | 2024-11-18 07:18 | HP.PCM_ITS ---
History and Physical Date of Admission: 11/18/24 [facility] [address] [place] [address] OFFICE VISIT Date of Service: 09/15/24 MR#: [id number] Acct: [id number] Name: RYAN MAYBERRY Rep #: [id number] : 1955 Provider: Dr. Yadiel Quinn, Age/Sex: 69/F Location[place] [facility] [email or web address] Status: Signed Intake Vital Signs 08/13/2410:50 Height 5 ft 7 in Intake Visit Reasons: left hip Chief Complaint: left hip Accompanied by: Self Allergies green tea Allergy (Verified 09/15/24 10:16) PT UNSURE OF REACTIONorange juice Allergy (Verified 09/15/24 10:16) Unknownnickel Adverse Reaction (Severe, Verified 09/15/24 10:16) Rash Medications ?Medication ?Instructions ?Recorded ?Confirmed ?Type cholecalciferol (vitamin D3) 50 50 mcg PO DAILY 09/22/21 09/15/24 History mcg (2,000 unit) capsule oxaprozin 600 mg tablet 600 mg PO BID 09/22/21 09/15/24 History cyclobenzaprine 10 mg tablet 10 mg PO HS 11/11/21 09/15/24 History oxymetazoline 0.05 % nasal spray 1 spray intranasal ONCE PRN DRY 11/11/21 09/15/24 History (12 Hour Nasal Relief [place]) NOSE aspirin 81 mg tablet 81 mg PO DAILY 11/30/21 09/15/24 History atorvastatin 40 mg tablet 40 mg PO QHS 11/30/21 09/15/24 History famotidine 20 mg tablet 20 mg PO DAILY #90 tabs 07/24/22 09/15/24 Rx estradiol 0.01% (0.1 mg/gram) See Rx Instructions vaginal 02/13/23 09/15/24 Rx vaginal cream .COMPLEX #42.5 grams oxyquinoline 0.025 %-sodium lauryl See Rx Instructions vaginal 08/13/24 09/15/24 Rx sulfate 0.01 % vaginal gel .COMPLEX #113.4 grams (Trimo-Wallis Jelly) denosumab 60 mg/mL subcutaneous 60 mg subcut [id number] 08/25/24 09/15/24 History syringe (Prolia) Have you fallen in the past year?: No PFSH Medical History Marijuana use Restless legs Heartburn Hiatal hernia Wears glasses Alcohol use High cholesterol Back pain Smoker Chronic cough Leg cramps History of irregular heartbeat Acid reflux Constipation Arthritis Dysphagia injection in hip Surgical History S/P hernia repair History of endoscopy History of colonoscopy History of appendectomy History of cataract surgery History of tubal ligation Family History Mother Diabetes Heart disease Hypertension High cholesterolSister Diabetes Heart disease High cholesterol HypertensionFather DiabetesDaughter Thyroid disorder Social History household members: spouse and other details: grandson number of children: 2 current occupational status: retired history of recent travel: No Smoking Status: Current every day smoker tobacco type: cigarettes alcohol intake: current alcohol intake frequency: a few times a month details: socially substance use type: does not use what type of physical activity do you participate in: none seatbelt use: always do you feel safe at home: Yes additional social history: - Isaak SANCHES left hip Details: This documentation accurately reflects the service provided and the decisions made by me, Dr. Yadiel Quinn, DO 09/15/24 0751. Part of today?s visit was documented by Pam FUENTES, acting as scribe. RYAN MAYBERRY is a 69 year old F 09/15/2024 :here today for a f/u after seeing Dr. Black. She states that Dr. Black advised her to proceed with the hip first. She would like to discuss hip replacement today. She continues to smoke a pack a day. She tried quitting this morning and went for [address] hour. 09/05/2024 Dr. Black office visit note: Explained imaging findings in detail. Given her most significant pain being in her left groin and imaging findings, recommend that her left hip take priority before any back surgical recommendations. Her lower back MRI findings seem worse stenosis on the right than the left. She does have left lower extremity radiculopathy which could be explained by the instability at L4-5. Explained to her that her claudication is likely related to the lower back as well as the posterior hip pain and also related to the back, however her groin pain and hip movement pain and pain with weightbearing is from her hip arthritis. Discussed pain management injections for her back however at this time, she wishes to see Dr. Quinn again to discuss a left hip replacement. She will follow for her back on an as needed basis. Patient is in agreement. 08/25/2024:here today for continued pain. Patient complains of pain into her low back and groin. She notes that her groin is worse. She denies constant groin pain. Patient completed physical therapy and felt better after doing physical therapy. She continued to do her home exercise program and now her pain is so bad she is unable to do her exercises. Patient states that she has increased low back pain with ambulating or lifting. She complains of numbness and tingling into her left toes. Patient has started prolia with her PCP and she started to have leg pain about 3 days after she started the medication. She denies any epidural injections. She had hip injections which were helpful for over a year, she had another injection at [facility] and that wasnt helpful. She continues to smoke a pack per day. Spoke with the patient about having multiple issues, hip osteoarthritis and lumbar radiculopathy. Patient may do formal physical therapy for her lumbar spine to help with her left leg pain. She may also see a spine surgeon or a pain management doctor for epidural injection for her lumbar spine. She is a candidate for a total hip arthroplasty due to her osteoarthritis but I explained that would not help her lumbar radiculopathy symptoms. Patient would need to stop smoking a minimium 6 weeks prior and after a total hip arthroplasty. Patient has not had an MRI of her lumbar spine, we will order the MRI. She will followup with Dr Black following her MRI so she knows what to expect in the future even if we need to proceed with hip replacement first she would like to know what needs to be done with her back before getting into all this. 01/17/2023 office visit: here today for 6 week f/u after physical therapy. States that she is doing much better and doesn't have any pain, pain is 0/10. States that it helped with her hip and low back pain. States she only gets low back pain occasionally when doing things around the house. Her pain has subsided after completion of PT. She was given a HEP and will continue with the HEP. She can return if her pain returns. Follow up as needed 12/06/2022 visit: 67 year old F NEW patient referral from Dr. Lloyd here today for left hip pain that she has had for many years. has became worse. She states that the pain is in the left buttock (greater sciatic notch) and left groin with ambulation. She states that she does have pain and burning into the foot at times on the left leg. She also has cramping behind the left knee. She does also have low back pain. Does have constant numbness and tingling down the left leg into the foot. She has had 2 injections into the left hip her most recent injection was into the hip joint by Dr. Dwyer and this was done in 07/2022 or 08/2022 and this wasn't helpful fci but did take away most of her pain for about a week. Denies any previous surgery or injections on her lumbar spine. She has tried a muscle relaxer. She does also take Oxyprozin. hot bath to help with the pain as well. Denies any MRI of the lumbar spine. She has chronic low back pain and smokes half pack per day Obtained X-rays of patient's left hip and lumbar spine. Personally reviewed x- rays. There is no obvious fracture, dislocation, or lucency noted. Educated that she has multiple issues including lumbar DDD and spondylosis with piriformis syndrome along with left hip arthritis. Edcuated that the left groin pain and sometimes left buttock pain is more than likely coming from the hip arthritis but the left leg pain and some buttock/back pain is coming from the lumbar spine. Recommended treatment of the lumbar spine with PT to determine if this will help aliviate the low back pain and piriformis syndrome. We also discussed tobacco cessation Ortho Exam General General: Yes no acute distress Neurologic: Yes alert and Yes oriented x3 Psychologic: Yes reasonable and appropriate Left Hip Skin/Wound: Yes CDI, No Ecchymosis, No soft tissue swelling and No Erythema Hip: Absent eccymosis, soft tissue swelling, erythema or tender to palpate - internal rotation @90 degree flexion: 5 degrees external rotation @90 degree extension: 30 degrees Special Tests: Yes TTP Greater sciatic notch; No Illiotibial band tenderness HIP: crepitus and stiffness with range of motion that reproduces her groin pain. no significant leg swelling. She does have weakness left lower extremity as well as numbness Head: Normocephalic Atraumatic Chest: symmetrical rise, non-labored breathing, no audible wheeze Abdomen: no guarding, non-rigid Supplemental Info 09/01/2024 MRI lumbar spine: Impression Multilevel degenerative disc disease 12/06/2022 x-ray lumbar spine: Degenerative disc disease most significant at L4-L5 L5-S1 but also L3-L4 lower lumbar facet arthrosis 11/24/2022 x-ray left hip moderate-advanced hip arthrosis? Coding Level of Care Code Off vis,est,level 4 Diagnoses Spondylolisthesis, lumbar region M43.16 Lumbar radiculopathy M54.16 Primary osteoarthritis of left hip M16.12 Osteoarthritis type: primary Assessment and Plan Assessment and Plan (1) Spondylolisthesis, lumbar region: Status: Acute (2) Lumbar radiculopathy: Status: Acute (3) Osteoarthritis of left hip: Status: Acute Qualifiers: Osteoarthritis type: primary Qualified Code(s): M16.12 - Unilateral primary osteoarthritis, left hip Plan Patient is here today for a f/u on her left hip. I advised patient she will need to stop smoking for 6 weeks before and after surgery due to a higher risk of infection. I advised patient to talk to her PCP about any medication that can help her stop smoking and get off of all nicotine. I did inform patient that we will nicotine test her before surgery, we will do 1 3 weeks prior to surgery and another one 1 week prior to surgery. She would like to schedule surgery now tentative surgery date November 18, 2024. She will need CT scan for [facility] Medical clearance Tentatively same-day surgery Stop all NSAIDs 7 days before Will get nicotine testing results Risks, benefits and alternatives of surgery reviewed including but not limited to bleeding, infection, nerve, foot drop, artery and/or tissue damage, fracture, VTE, leg length discrepancy, dislocation, need for hip precautions, continued pain and expected post-operative course. She will have bending restrictions for 6 weeks. Spoke with patient that the surgery will not take away her all of her pain as there is overlapping symptoms from her back in addition will not help with numbness and tingling that radiates down the extremity or her back pain. I did advise patient that we do tell other people to plan for 3 months off of work, however she is retired. Follow up at 2 weeks post-op or sooner if pain, swelling, numbness or associated symptoms, or concerns develop. All questions answered. Patient in agreement of plan. Clinical Quality Measures Falls Risk Screening/Assistive Devices Have you fallen in the past year?: No 09/15/24 1123 <Electronically signed by Yadiel Quinn DO> Date Yadiel Dutton Signature: Date (if applicable) CC: ~ I have examined the patient and the H&P has been reviewed. There are no clinical changes since date of exam.
--- NOTE | 2024-11-18 07:20 | PRE.ANES_ITS ---
ASA Classification* ASA Classification ASA Classification: 3 Assessment & Plan Anesthesia* Anesthesia Assessment Anesthesia Assessment: Discussed sedation and/or anesthesia options, risks, benefits, and alternatives with patient/parents/legal guardian/POA. Questions invited. The patient/parents/legal guardian/POA seems to understand and agrees to proceed with anesthesia plan. Reviewed the physical assessment, medical history, allergy history and patient home medications list prior to surgery/procedure/anesthetic and documented any changes. Performed airway and anesthesia risk assessments. Anesthesia Type Anesthesia Type: Spinal History Source History Obtained from:: Patient Anesthesia Focused Assessment* Temperature: 97.7 F Pulse Rate: 81 Blood Pressure: 104/80 Respiratory Rate: 16 Pulse Ox: 99 Oxygen Delivery Method: Room Air Airway Assessment Mouth opens: 2 cm Mallampati Score: II Teeth Condition: Intact Neck Range of motion (ROM): Full ROM Focused Labs Anesthesia Preop lab: CBC WBC 5.5 K/mm3 (4.4-11.0) 11/10/24 12:05 RBC 3.93 M/mm3 (4.2-5.4) L 11/10/24 12:05 Hgb 11.9 g/dL (12.0-15.0) L 11/10/24 12:05 Hct 37.8 % (37-47) 11/10/24 12:05 Plt Count 287 K/mm3 (150-450) 11/10/24 12:05 CHEMISTRY Potassium 4.6 mmol/L (3.5-5.1) 11/10/24 12:05 Sodium 141 mmol/L (136-145) 11/10/24 12:05 Magnesium 1.8 mg/dL (1.6-2.6) 11/10/24 12:05 BUN 28 mg/dL (7-18) H 11/10/24 12:05 Creatinine 1.22 mg/dL (0.55-1.02) H 11/10/24 12:05 Glucose 98 mg/dL (74-106) 11/10/24 12:05 POC Glucose 67 mg/dL (74-106) L 11/18/24 06:32 COAG PT 13.1 SECONDS (11.7-14.9) 11/10/24 12:05 Pre-Assessment Diagnosis/Proposed Procedure Planned Operative Procedure(s): (L) Left Total Hip Replacement Robotic Arm Assisted Anesthesia History Anesthesia History - clinical transformation specialist: Anesthesia History - clinical transformation specialist Hx Hospitalization No 10/27/24 13:57 Any Problems With Anesthesia No 10/27/24 13:57 Cholinesterase deficiency No 10/27/24 13:57 You/Your Family Experience No 10/27/24 13:57 fever (hyperthermia) with Relationship Recent Exposure to Contagious No 08/11/24 15:24 Disease Does patient have nerve No 10/27/24 13:57 stimulator Patient instructed to have device shut off --Does patient have Pacemaker No 11/18/24 06:33 or ICD? When Was Last Pacemaker Check QUESTION #4 FULL TEXT: You/Your Family Experience fever (hyperthermia) with Anesthesia Any additional information?: No Last Oral Intake Last Oral intake: Last Oral Intake NPO since 04:30 11/18/24 06:33 Meds taken in AM with sips of Yes 11/18/24 06:33 water? Meds patient instructed to famotadine 11/18/24 06:33 take am of surgery Any additional information?: No PONV PONV - clinical transformation specialist: PONV - clinical transformation specialist Female Yes 10/27/24 13:57 HX of Motion Sickness Yes 10/27/24 13:57 HX of N/V After Surgery Yes 10/27/24 13:57 Non-Smoker Yes 10/27/24 13:57 Duration of Surgery greater Yes 10/27/24 13:57 than 60 minutes Number of Risk Factors 5 10/27/24 13:57 PONV Score Severe Risk 10/27/24 13:57 Any additional information?: No Height & Weight Height & Weight: Anesthesia: Height & Weight Height 5 ft 7 in 11/18/24 06:33 Weight: 82 kg 11/18/24 06:33 Body Mass Index (BMI) 28.3 11/18/24 06:33 Respiratory Assessment Respiratory Assessment - clinical transformation specialist: Respiratory Tract Infection Hx - clinical transformation specialist Hx Respiratory Tract Infection No 10/27/24 13:57 Any additional information?: No STOP Sleep Apnea STOP Sleep Apnea - clinical transformation specialist: STOP Sleep Apnea - clinical transformation specialist Hx Hypertension No 10/27/24 13:57 Hx Sleep Apnea No 10/27/24 13:57 CPAP No 10/27/24 13:57 BIPAP Do you snore loudly (louder No 10/27/24 13:57 than talking or can be heard Do you often feel tired/ No 10/27/24 13:57 fatigued/ sleepy during daytime? Has anyone observed you stop No 10/27/24 13:57 breathing during sleep? STOP Results Negative 10/27/24 13:57 QUESTION #5 FULL TEXT : Do you snore loudly (louder than talking or can be heard through closed doors)? Any additional information?: No Tobacco Use History Tobacco Use History - clinical transformation specialist: Tobacco Use History - clinical transformation specialist Tobacco Use Smoking Status Former smoker 10/27/24 13:57 Hx Tobacco Use Yes: QUIT CIGARETTES [id number] 10/27/24 13:57 Years Smoking Packs Smoked per Day Smoking Cessation Date was Yes - quit smoking within 15 10/27/24 13:57 within the last 15 years years Hx Smoking Cessation Date 09/26/24 10/27/24 13:57 Hx Smoking Cessation Counseling Any additional information?: No Hematologic Medial History Hematologic Hx - clinical transformation specialist: 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 Specify any problems Hx of Preganancy in last 3 No 10/27/24 13:57 Months Nurse Filling Out Transfusion MGRIFFITH 10/27/24 13:57 & Questions: Date: 10/27/24 10/27/24 13:57 Time: 14:00 10/27/24 13:57 Patient unable to answer at this time (ie. confused, unrespo Any additional information?: No /Reproduction History /Reproductive History - clinical transformation specialist: /Reproductive Hx- clinical transformation specialist Hx Now No 10/27/24 13:57 Gestational Age (in weeks): EDC: Hx Hx Para Hx Section SAB No 10/27/24 13:57 Any additional information?: No Active Medications Active Medications: Current Medications Generic Name Dose Route Start Last Admin Trade Name Freq PRN Reason Stop Dose Admin Acetaminophen 1,000 mg 11/18/24 07:30 11/18/24 06:40 Acetaminophen 500 Mg Tablet PO 11/18/24 07:31 1,000 mg X1 ONE Administration Dexamethasone Sodium Phosphate 10 mg 11/18/24 07:30 Dexamethasone 10 Mg/Ml Vial IV 11/18/24 07:31 X1 ONE Gabapentin 600 mg 11/18/24 07:30 11/18/24 06:41 Gabapentin 600 Mg Tablet PO 11/18/24 07:31 600 mg X1 ONE Administration Lactated Ringer's 1,000 mls @ 999 mls/hr 11/18/24 07:30 11/18/24 06:39 IV 11/18/24 08:30 999 mls/hr .Q1H1M PHILIP Administration Cefazolin Sodium 2 gm/ N/A 20 mls @ 400 mls/hr 11/18/24 07:30 IV 11/18/24 07:32 PREOP ONE Tranexamic Acid 2,000 mg/ 120 mls @ 660 mls/hr 11/18/24 07:30 Sodium Chloride IV 11/18/24 07:40 X1 ONE Lactated Ringer's 1,000 mls @ 100 mls/hr 11/18/24 07:30 11/18/24 06:39 IV 11/18/24 17:29 100 mls/hr .Q10H PHILIP Administration Lactated Ringer's 1,000 mls @ 125 mls/hr 11/18/24 07:30 IV 11/18/24 15:29 .Q8H PHILIP Magnesium Sulfate 2 gm/ 104 mls @ 208 mls/hr 11/18/24 07:30 11/18/24 06:41 Dextrose IV 11/18/24 07:59 208 mls/hr X1 ONE Administration Sodium Chloride 1,000 mls @ 15 mls/hr 11/18/24 06:20 IV 11/23/24 19:39 .Q48H [facility] Protocol Insulin Human Lispro 1 - 6 unit 11/18/24 07:30 Insulin Lispro 100 Unit/Ml Insuln.Pen SC 11/18/24 18:00 Q4H PRN PRN BG>/= 180, SEE PROTOCOL Protocol Scopolamine HBr 1 patch 11/18/24 07:30 11/18/24 06:40 Scopolamine 1mg/72hr Patch TD 11/18/24 07:31 1 patch X1 ONE Administration Sodium Chloride 5 - 15 ml 11/18/24 07:30 0.9% Nacl Peripheral Flush Adult/Peds IV UD PRN SALINE FLUSH PFSH Medical History (Updated 10/27/24 @ 14:10 by Kisha Carlin) Post-menopausal Vertigo PONV (postoperative nausea and vomiting) Gastric reflux Shortness of breath on exertion Former smoker Heart murmur Marijuana use Restless legs Heartburn Hiatal hernia Wears glasses Alcohol use High cholesterol Back pain Smoker Chronic cough Leg cramps History of irregular heartbeat Acid reflux Constipation Arthritis Dysphagia injection in hip Home Medications ?Medication ?Instructions ?Recorded ?Last Taken ?Type cholecalciferol (vitamin D3) 50 50 mcg PO DAILY 09/22/21 11/17/24 History mcg (2,000 unit) capsule oxaprozin 600 mg tablet 600 mg PO BID 09/22/21 11/17/24 History cyclobenzaprine 10 mg tablet 10 mg PO HS 11/11/21 11/17/24 History oxymetazoline 0.05 % nasal spray 1 spray intranasal ONCE PRN DRY 11/11/21 04/09/22 History (12 Hour Nasal Relief [place]) NOSE aspirin 81 mg tablet 81 mg PO DAILY 11/30/21 11/11/24 History atorvastatin 40 mg tablet 40 mg PO QHS 11/30/21 11/17/24 History famotidine 20 mg tablet 20 mg PO DAILY #90 tabs 07/24/22 11/18/24 Rx estradiol 0.01% (0.1 mg/gram) See Rx Instructions vaginal 02/13/23 Unknown Rx vaginal cream .COMPLEX #42.5 grams oxyquinoline 0.025 %-sodium lauryl See Rx Instructions vaginal 08/13/24 Unknown Rx sulfate 0.01 % vaginal gel .COMPLEX #113.4 grams (Trimo-Wallis Jelly) denosumab 60 mg/mL subcutaneous 60 mg subcut [id number] 08/25/24 Unknown History syringe (Prolia) Allergy/AdvReac Type Severity Reaction Status Date / Time green tea Allergy PT UNSURE Verified 10/27/24 13:52 OF REACTION orange juice Allergy Unknown Verified 10/27/24 13:52 nickel AdvReac Severe Rash Verified 10/27/24 13:52 Family History Mother Diabetes Heart disease Hypertension High cholesterol Sister Diabetes Heart disease High cholesterol Hypertension Father Diabetes Daughter Thyroid disorder Surgical History S/P hernia repair History of endoscopy History of colonoscopy History of appendectomy History of cataract surgery History of tubal ligation Social History household members: spouse and other details: grandson number of children: 2 current occupational status: retired history of recent travel: No Smoking Status: Former smoker alcohol intake: current alcohol intake frequency: a few times a month details: socially substance use type: does not use what type of physical activity do you participate in: none seatbelt use: always do you feel safe at home: Yes additional social history: - Isaak Review of Systems (Anesthesia) ROS Narrative System reviewed and no additional complaints, except as documented. Physical Exam Const alert and oriented x3 Orientation / Consciousness: awake
[2024-11-18] MEDS: Cefazolin 2 GM in Syringe 10 ML IV (08:01)
--- NOTE | 2024-11-18 08:15 | FEM_PTH ---
PATIENT: RYAN MAYBERRY LOC: [facility] [place] U#:[id number] AGE/SX: 69/F ROOM: RE11/18/[address]: Dr. Yadiel Quinn DO : 1955 BED: DIS: 11/18/2024 SPEC #: [id number] RECD: 11/18/24 10:42 STATUS: CHARITO REQ #: [id number] DAYO: 11/18/24 08:[address]: Yadiel Quinn DEPT: SURGICAL PATHOLOGY RECD BY: Alla Grady ENTERED: 11/18/24 11:46 SP TYPE: FEM HEAD OTHR DR: Dr. Anastacio Lloyd MD Tissues: Femoral region, NOS Procedures: Decalcification bone/plaque Surgery Specimen Level V HEADER OPERATION: Left total hip replacement robotic arm assist PRE-OP DIAGNOSIS: Osteoarthritis of left hip TISSUE SUBMITTED: Left femoral head MICROSCOPIC DIAGNOSIS Left hip bone and soft tissue, total hip replacement/resection: Femoral head with severe degenerative osteoarthritic changes. Fragments of fibroconnective tissue and reactive synovial tissue. SJ: 11/21/2024 MICROSCOPIC DESCRIPTION Slides are reviewed. GROSS DESCRIPTION Received is one container labeled with the patient's name and designated bone and soft tissue left hip. The specimen consists of a pate femoral head with portion of femoral neck. The femoral head measures 5.0 x 5.0 x 4.5 cm and the femoral neck measures 1.0 cm in length. The articular surface displays prominent osteophyte formation, eburnation and bone erosion. Also present in the specimen container are multiple irregular fragments of bone reamings and pink-yellow soft tissue measuring in aggregate 7.0 x 6.0 x 2.0cm. Also present in the container are detached piece of bone measuring 2.0 x 1.5 x 1.0cm. Also present attached to the femoral head are two pieces of soft tissue measuring in aggregate 2.5 x 1.5 x 0.3cm. A focal yellowish area is also noted on the surface of the femoral head measuring 2.0 x 2.0cm. Senior Field Engineer sections are submitted in three cassettes as follows: 1 - soft tissue, entirely submitted, 2&3- femoral head after decalcification. / MISA. 11/18/2024 TC:5 CPT: 09128, 15520
[2024-11-18] MEDS: TRANEXAMIC ACID 2,000 MG in 0.9% Normal Saline (100mL Bag) 100 ML 660 MG IV (08:32)
[2024-11-18] MEDS: dexAMETHasone 10 MG/ML Vial IV (08:32)
--- NOTE | 2024-11-18 10:15 | PCM.POST.ANE ---
Anesthesia: Postop Eval I Current Vital Signs Temperature: 36.7 F Pulse Rate: 80 Blood Pressure: 98/67 Respiratory Rate: 16 Pulse Ox: 97 Oxygen Delivery Method: Venturi Mask Oxygen Flow Rate (L/min): 4 Assessment Airway patent: Yes Spontaneous unlabored respirations: Yes Mental status: Asleep nausea: No Vomiting: No Anesthesia Complication: No Fluid Hydration Crystalloid volume administer (ml): 2,000 Total IV fluid infused: 2,000 Progress Note Anesthesia document: Postop Eval 1 completed: Yes
--- NOTE | 2024-11-18 10:16 | OP.PCM_ITS ---
Operative Report (Standard) Operative Information Date of Procedure: 11/18/24 Pre-Operative Diagnosis: Left hip DJD Post-Operative Diagnosis: Same Surgery/Procedure Performed: Left total hip arthroplasty tandem mill roller: Yes Ad Taker: Castillo Costello Tasks completed by recruitment assistant: Opening & closing Type of Anesthesia: Spinal RN Documented Start/Stop Times: Operation Date: 11/18/24 08:15 Case Time Into Pre-Op 11/18/24 06:19 Anesthesia Start 11/18/24 08:01 Into Room 11/18/24 08:01 Out of Pre-Op 11/18/24 08:01 Procedure Start 11/18/24 08:32 Procedure End 11/18/24 10:03 Anesthesia End 11/18/24 10:11 Out of Room 11/18/24 10:11 Procedure Start Time: 08:32 Procedure Stop Time: 10:03 Select all DRAINS/GRAFTS/IMPLANTS that apply: Implanted device (Shelocta) Implanted device details: [place] Estimated Blood Loss: 100 Specimen collected: Yes Description of specimen(s) removed: Femoral head Description of surgery: Preoperative diagnosis: Left hip DJD Postoperative diagnosis: Same Procedure: CT-guided Makoplasty assisted left total hip arthroplasty Implants: [place] Accolade II stem size 6, 127 degree neck angle -5 head neck length 52 mm Trident II acetabular shell with 40 mm cancellous screw x2 36 mm ceramic head, 10 degree Trident X3 polyethylene insert. Anesthesia: Spinal EBL: 100 cc Complications: None Condition: Stable to PACU Front End Developer Javascript Html Css Castillo Costello. My physician assistant food service director was a vital part of this case. He was important in appropriate retraction during the case, and protection of soft tissues during procedure. His intimate knowledge of the case and my steps aided in safe and expedient completion of the procedure as well as appropriate position of the extremity during the case. He was also vital in assisting with closure under my direct supervision. Indication for procedure: This is a 69-year-old female who has had long-standing arthrosis of the hip who has failed conservative treatment and wished to undergo total hip arthroplasty. We did discuss operative versus nonoperative intervention including risks of bleeding, infection , nerve artery tissue damage, need for further surgery, fracture, leg length discrepancy dislocation blood clot and need for postoperative physical therapy and postoperative expectations. An informed consent was signed. Procedure: Patient was met in the preoperative holding area once again the operative extremity was identified by both patient and physician and was marked. Patient was met by anesthesia . Anesthesia was started. patient was then positioned in the lateral decubitus position on a well-padded pegboard with an axillary roll. All bony prominences were checked and padded. The patient was prepped and draped in the usual sterile fashion. A timeout was called to ensure the proper patient procedure and extremity were being contemplated. Anatomic landmarks were palpated and marked for a standard posterior lateral approach. Prior to this the ASIS was palpated and 3 fingerbreadths proximal to this 3 pins were placed at a 45 degree angle into the iliac crest with good purchase, stab incisions were made with a 15 blade into the skin prior to placement. The Makoplasty array was then secured. A 10 blade scalpel was used to make a posterior incision through the skin and subcutaneous tissue. retractors were used and electrocautery was used to maintain meticulous hemostasis and dissect full-thickness flaps until the gluteal fascia was reached. The gluteal fascia was incised in line with the gluteal fibers. The bursal tissue was then freed from the underside and a Charnley retractor was placed. The femoral trochanteric checkpoint was placed and leg length was assessed using the trochanteric checkpoint and an EKG lead that was placed on the knee prior to prepping the leg .the fat pad was then elevated off of the external rotators with electrocautery and the external rotators were dissected off of the greater trochanter including the piriformis and were tagged with #1 Ethibond for later repair. The joint capsule opened with posterior trapdoor technique. The hip was surgically dislocated. The measurement on the preoperative CT from the top of the lesser trochanter to the femoral neck cut was marked Hohmann was placed around the lesser trochanter. A neck cutting guide was used to brenda the neck with a Bovie and an oscillating saw was used complete the femoral neck cut. The femoral head was then removed and sized. We then turned our attention to the acetabulum. A Bovie was used to make a perforation in the anterior joint capsule and a Villaseñor retractor was placed this was repeated in the 6 o'clock position and a wide gregory was placed there. With a long handled knife the labral and pulvinar tissue were removed. We then registered the acetabulum with the pointing array and confirmed our landmarks. Once the socket was thoroughly prepared and labral tissue and pulvinar was removed we single reamed with the robotic arm. We then used the robotic arm to position the acetabular implant and impacted it into place under robotic guidance. We then proceeded to place a posterior superior screw by drilling first measuring and inserting the screw. This was repeated for a second screw. we then inserted a trial liner. And turned our attention back to the femur at this point a femoral elevator was used. As well as a pointed wide Hohmann around the lesser trochanter and a Hohmann to help retract the gluteus medius. A box chisel was used to remove excess lateral neck followed by a canal finder and a lateralizing reamer. This was followed by sequential broaches. Attention was made of the version within the canal based on preoperative templating. Once the final broach was seated we then trialed reduced the hip it was determined that a 127 degree neck angle with a -5 neck length was the appropriate size. We then checked stability with shuck testing as well as flexion and internal rotation. then proceeded with hip extension and checked leg lengths at the knees and heels as well as with the trochanteric checkpoint and knee EKG lead. At this point trials were removed. A liner was inserted to the cup. The femoral stem was inserted. We re-trialed and then proceeded to impact the femoral head onto the Pranay taper. We then surgically reduce the hip check stability again and leg lengths and were satisfied. Betadine rinse was allowed to sit for 5 minutes while everyone changed their gloves. Thorough irrigation was performed. Followed by closure of the external rotators with #2 FiberWire followed by closure of gluteal fascia with #1 Ethibond. 0 Vicryl fat stitches and 2-0 Vicryl subcutaneous stitches and gabino in the skin. Comer were placed in the skin pin sites over the iliac crest and dressed with a Mepilex dressing. The main incision was dressed with a Mepilex ag dressing and an abduction pillow was placed. Patient tolerated the procedure well there was no intraoperative complications all counts were correct and the patient was brought back to the PACU in stable condition Surgical Findings: DJD Complications Complications: No
--- NOTE | 2024-11-18 10:25 | RAD_ITS ---
EXAM: XR LEFT HIP WITH PELVIS WHEN PERFORMED, 2 OR 3 VIEWS CLINICAL INDICATION: Postop -- in PACU TECHNIQUE: Two or three views of the left hip with pelvis when performed. COMPARISON: 11/24/22. FINDINGS: New left total hip arthroplasty with satisfactory alignment and no complications. No acute fracture. Expected soft tissue gas and edema. Phleboliths in the right pelvis. RAD/Hip Min 2 Views (Portable) IMPRESSION: No unexpected postsurgical findings. Electronically Signed: Alen Fermin MD at 18:08 EST ,
[2024-11-18] MEDS: Lactated Ringers 1,000 ML 125 ML IV (10:38)
--- NOTE | 2024-11-18 13:17 | SUR.PHASEII ---
pt sitting up eating lunch. family at bedside.
--- NOTE | 2024-11-18 13:31 | DCINST_ITS ---
Discharge Instructions Diet Discharge Diet: No restrictions Activity Weight Bearing Status: Full weight bearing Dressing / Incision Call your doctor if you observe: Shortness of breath and Chest pain Additional Dressing/Incision Instructions:: Do not shower 72hrs. Begin daily showering warm water antibacterial soap postop day #3( 72hrs Post-operatively) and then daily. Leave the dressing on for 72 hours postoperatively then may remove prior to first shower and change dressing daily after this until no drainage for 2 consecutive days then may leave open to air. Follow hip precautions that were reviewed in hospital. Wear compression stockings, may remove at night. Start physical therapy as directed in hospital. Follow prescriptions instructions do not take any other pain medication or differ dosing without consulting your physician. Do not take oral NSAIDs until blood thinner has been completed , then may begin the day after completion if needed . Call Dr. Quinn's office with any concerns. Follow Up Care Please Follow Up With: Yadiel Quinn DO When: 2 weeks Test Results: Test results from this visit will be discussed in further detail at your follow- up appointment, if applicable. Discharge Plan Admission Primary Reason for Your Visit: Left total hip Attending Provider: Yadiel Quinn Primary Care Provider: Anastacio Lloyd Instructions Print Language: Serbian Discharge Orders/Prescriptions Prescriptions: New acetaminophen 500 mg tablet 1,000 mg PO Q6H Qty: 100 0RF cephalexin 500 mg capsule 1,000 mg PO Q8H Qty: 4 0RF Rx Instructions: Take 2 tabs before you go to bed and 2 tabs after 5 AM morning after surgery when you wake up Eliquis 2.5 mg tablet 2.5 mg PO BID Qty: 42 0RF Rx Instructions: Begin morning after surgery. oxycodone 5 mg tablet 5 - 10 mg PO Q4H PRN (Reason: pain) 7 Days Qty: 60 0RF Continued cholecalciferol (vitamin D3) 50 mcg (2,000 unit) capsule 50 mcg PO DAILY cyclobenzaprine 10 mg tablet 10 mg PO HS oxymetazoline [12 Hour Nasal Relief [place]] 0.05 % spray,non-aerosol 1 spray intranasal ONCE PRN (Reason: DRY NOSE) famotidine 20 mg tablet 20 mg PO DAILY Qty: 90 3RF estradiol 0.01 % (0.1 mg/gram) cream See Rx Instructions vaginal .COMPLEX Qty: 42.5 2RF Rx Instructions: small amount as directed vaginal 3 times per week; Trimo-Wallis Jelly 0.025-0.01 % gel See Rx Instructions vaginal .COMPLEX Qty: 113.4 3RF Rx Instructions: 1 application VAGINAL once a week; Prolia 60 mg/mL syringe 60 mg subcut [id number] atorvastatin 40 mg tablet 40 mg PO QHS Patient Comments: TAKE 1 TABLET BY MOUTH NIGHTLY Held oxaprozin 600 mg tablet 600 mg PO BID Hold Instructions: May resume after completion of blood thinner if needed aspirin 81 mg Tablet 81 mg PO DAILY Hold Instructions: Resume on 11/21/24. Other Ambulatory Orders: 12 Lead EKG (Routine) Timeframe: 1 Day Location: None Selected Ordered By: Dr. Yadiel Quinn Referrals / Follow Up: Anastacio Lloyd MD [Primary Care Provider] - Disposition Disposition (needs filled in before D/C Order can be placed): Home, Self Care
[2024-11-18] MEDS: Cefazolin 2 GM in Syringe IV (14:13)
[2024-11-18] MEDS: oxyCODONE 5 MG Tablet PO (16:12)
--- NOTE | 2024-11-19 07:08 | POSTOPAN2_ITS ---
Anesthesia Postop Eval I Sum Postop Eval Completion status Anesthesia document: Postop Eval 1 completed: Yes Anesthesia Postop Eval I Summary Anesthesia Postop Eval I Summary: Anesthesia Postop Eval I: Assessment Summary Airway patent Yes 11/18/24 10:16 [email or web address] [email or web address] Spontaneous unlabored Yes 11/18/24 10:16 [email or web address] [email or web address] respirations Mental status Asleep 11/18/24 10:16 TREKKING GUIDE.NANCYLI nausea No 11/18/24 10:16 TREKKING GUIDE.NANCYLI Vomiting No 11/18/24 10:16 [email or web address].RADHA Anesthesia Postop Eval I: Fluid Summary Crystalloid volume administer 2,000 11/18/24 10:16 TREKKING [email or web address].JCLI (ml) Colloids volume administered ( ml) Blood Product volume administered (ml) Total IV fluid infused 2,000 11/18/24 10:16 [email or web address] [email or web address].RADHA Anesthesia Postop Eval I: Summary Notes Anesthesia Complication No 11/18/24 10:16 [email or web address] [email or web address].RADHA Anesthesia Complication Comment: Post-operative progress note Anesthesia: Postop Eval II Evaluation Mental status: Awake and Calm Pain Level: 1 nausea: No Vomiting: No Complications Anesthesia Complication: No
--- NOTE | 2024-11-19 07:08 | PCM.POSTANE2 ---
Anesthesia Postop Eval I Sum Postop Eval Completion status Anesthesia document: Postop Eval 1 completed: Yes Anesthesia Postop Eval I Summary Anesthesia Postop Eval I Summary: Anesthesia Postop Eval I: Assessment Summary Airway patent Yes 11/18/24 10:16 PLANETARIUM [email or web address] Spontaneous unlabored Yes 11/18/24 10:16 PLANETARIUM [email or web address].[email or web address] respirations Mental status Asleep 11/18/24 10:16 PLANETARIUM [email or web address].[email or web address] nausea No 11/18/24 10:16 PLANETARIUM TECHNICIAN.NANCYLI Vomiting No 11/18/24 10:16 PLANETARIUM [email or web address].[email or web address] Anesthesia Postop Eval I: Fluid Summary Crystalloid volume administer 2,000 11/18/24 10:16 PLANETARIUM TECHNICIAN.JCLI (ml) Colloids volume administered ( ml) Blood Product volume administered (ml) Total IV fluid infused 2,000 11/18/24 10:16 PLANETARIUM [email or web address].RADHA Anesthesia Postop Eval I: Summary Notes Anesthesia Complication No 11/18/24 10:16 PLANETARIUM [email or web address].RADHA Anesthesia Complication Comment: Post-operative progress note Anesthesia: Postop Eval II Evaluation Mental status: Awake and Calm Pain Level: 1 nausea: No Vomiting: No Complications Anesthesia Complication: No
== END 2024-11-18 17:13 | disposition home or self-care (01) ==
LOC: SDC 06:07 → AC 06:07
PROVIDERS: PCP Family Medicine; Referring Provider Orthopaedic Surgery; Visit Provider Orthopaedic Surgery
PROC: 8E0Y0CZ Robotic Assisted Procedure of Lower Extremity, Open Approach (ICD-10-PCS; CPT 27130; principal; 2024-11-18 07:45)
DX: M16.12 Unilateral primary osteoarthritis, left hip (principal); M43.16 Spondylolisthesis, lumbar region; M54.16 Radiculopathy, lumbar region; E78.00 Pure hypercholesterolemia, unspecified; Z79.82 Long term (current) use of aspirin; Z79.899 Other long term (current) drug therapy; Z87.891 Personal history of nicotine dependence
CPT/HCPCS: 27130; 01214; 36415; 73502; 80323; 82962; 88307; 88311; 97162; C1713; C1776; G0480; J2405

== ENCOUNTER 2024-12-18 14:00 | Outpatient (RCR) | payer MEDICARE, BC, SELFPAY ==
--- NOTE | 2024-11-21 14:05 | HP.PTEVAL ---
Patient's Visit Information Visit Information Visit Information: RYAN MAYBERRY is a 69 year old F referred to Physical Therapy by Dr. Yadiel Quinn DO with a diagnosis of UNILATERAL PRIMARY OSTEOARTHRITIS LEFT HIP. Date of Evaluation: 11/21/24 Physical Therapist: Magdi Chance, PT, Cert MDT, OCS Visit Plan Frequency: 2x /Week Duration: 6 Weeks Plan: S/P ROBERT POSTERIOR LATERAL 09/18 WITH HIP PRECAUTIONS WBAT LLE FWW PT INTERVENTIONS ROM HIP , STRENGTHENING LEFT QUADS/HAMS/HIP ,GAIT /BALANCE TRAINING ,AND FUNCTIONAL STRENGTHENING Subjective Subjective: This 69 y/o female presents to physical therapy with left ROBERT on 11/18/[address] Quinn at [facility] . Patient was d/c to 11/18 with WBAT left with fww with posterior lateral hip precaution. Patient RTD 12/01/24. Patient has had hip pain many years x-rays showed severe DJD hip . Patient had prior Aquatic PT. Patient has min pain. Medication pain medication oxycodone. Patient denies paresthesia/tingling . Patient sleeping good. Patient has some edema. Patient lives 2 story with 3 steps with rail. Patient has tub/shower set up. Patient is sponge bathing and assist with dressing . Spouse does cooking Patient condition affects QOL and function/gait. Patient goals to walk normal. SOCIAL: VOCATION: retired Pain Right Hip: Pain Intensity (Out of 10): 1 Pain Intensity Range: 10 Objective Objective: POSTURE: mild forward posture hips/knees slightly flexed NEURO: denies paresthesia/tingling SKIN: incision well approximate gabino intact posterior lateral EDEMA: mild edema thigh GAIT: ambulates with fww with WBAT LLE slow isauro with decrease stance time AROM: supine knee flexion 5-125 degrees ,hip flexion 70 degrees ,hip abduction 25 degrees ,hip extension 0 BALANCE: fair with fww MMT: hip flexion,hip extension ,0 ,hip abd 0 ,hamstrings left 10.9 ,quads 8.9 STAIRS : one step at time with rail Balance/Special Test Scores Lower Extremity Functional Score: 11 TUG Test Time Seconds: 32.89 WOMAC Total Score: 77 WOMAC Percentatge: 16.3100 Goals Goal 1:: Patient to be I with HEP for hip Goal Time Frame: 4-6 Weeks Goal 2:: Patient to improve peak force hip by 10 # to improve gait Goal Time Frame: 4-6 Weeks Goal 3:: Patient to improve gait with/without cane with normal gait pattern Goal Time Frame: 4-6 Weeks Goal 4:: Patient to improve LFES score by 10 points to improve QOL Goal Time Frame: 4-6 Weeks Goal 5:: Patient to improve TUG score under 12 seconds to improve safe gait. Goal Time Frame: 4-6 Weeks Goal 6:: Patient to improve WOMAC by 10 points to improve QOL Goal Time Frame: 4-6 Weeks Rehabilitation Potential Physical Therapy Diagnosis: Patient underwent s/p ROBERT left 09/18 with decrease gait ,ROM ,strength ,stairs and hip precautions thus benefit from skilled PT Rehabilitation Potential: Good Anticipated Interventions Patient/Client Instruction: Educate patient on: Condition and Plan of Care For the Purpose of:: To decrease pain, To increase ROM, To improve muscle performance and motor function, To increase tolerance to activity/condition/position, To improve performance and independence with ADL's, To improve ability of physical actions for home/community/work/leisure, To improve gait and locomotor functions, To improve health of tissue, To decrease soft tissue restriction, To increase flexibility/ROM, To improve endurance and To improve balance Therapeutic Exercise to Include: Strength training, Endurance training, Balance training, Gait and locomotor training and Active ROM Comment: QUADS/HAMS/HIP S/P ROBERT LEFT For the Purpose of:: To decrease pain, To increase ROM, To improve muscle performance and motor function, To improve ability to perform ADL's, To increase tolerance to activity/condition/position, To improve ability of physical actions for home/community/work/leisure, To improve gait and locomotor functions, To improve health of tissue, To increase flexibility/ROM, To improve balance, To improve safety with gait, To improve safety, To improve health and function and To improve tolerance to ADL's Text: Thank you for the opportunity to evaluate your patient. For Medicare and Medicare HMO plans, please review the plan of care and approve it. It will need to be FAXED BACK to us at [phone] for Medicare purposes. For Medicare only, by signing this I certify the plan of care. Please let me know if there are questions or concerns regarding this plan of care. Physician Signature: Date:
--- NOTE | 2024-12-18 14:58 | HP.PTDCSUM ---
Discharge Summary D/C summary: It has been my pleasure to treat RYAN MAYBERRY referred by Dr. Yadiel Quinn DO, with the diagnosis of UNILATERAL PRIMARY OSTEOARTHRITIS LEFT HIP for a total of 8 visit(s). Discharge Date: 12/18/24 Please see the following information for a summary of their discharge status. Subjective Subjective: Doing goog ..see 2 weeks ago Pain Right Hip: Pain Intensity (Out of 10): 0 Overall Improvement % Improvement: 95 Objective Objective/Function: POSTURE: mild forward posture hips/knees slightly flexed NEURO: denies paresthesia/tingling SKIN: incision well approximate gabino intact posterior lateral EDEMA: mild edema thigh GAIT: ambulates with cane slight decrease stance time AROM: supine knee flexion 0-130 degrees ,hip flexion 90 degrees ,hip abduction 35 degrees ,hip extension 10 BALANCE: GOOD- MMT: hip flexion,hip 29.1 extension ,12.2 ,hip abd 0 ,hamstrings left20.9 ,quads 29.9 STAIRS : one step at time with rail Goals Goal 1:: Patient to be I with HEP for hip Goal Progress: Goal Met Goal 2:: Patient to improve peak force hip by 10 # to improve gait Goal Progress: Goal Met Goal 3:: Patient to improve gait with/without cane with normal gait pattern Goal Progress: Goal Met Goal 4:: Patient to improve LFES score by 10 points to improve QOL Goal Progress: Goal Met Goal 5:: Patient to improve TUG score under 12 seconds to improve safe gait. Goal Progress: Goal Met Goal 6:: Patient to improve WOMAC by 10 points to improve QOL Goal Progress: Goal Met Plan Plan: D/C D/C Information Discharge Comments: HEP d/c sentence: If there are questions or concerns regarding this patient's physical therapy, please feel free to call me at [phone]. Thank you for the referral of this patient. Sincerely, Magdi Chance, PT, Cert MDT, OCS Balance/Gait/Functional tests Balance/Special Test Scores Lower Extremity Functional Score: 48 TUG Test Time Seconds: 12.7 Tug Test: <20 sec.=mostly independent WOMAC Total Score: 77 WOMAC Percentage: 16.3100 Improvement % Improvement: 95
== END 2024-12-18 19:00 | disposition home or self-care (01) ==
LOC: PT 14:00
PROVIDERS: PCP Family Medicine; Referring Provider Orthopaedic Surgery; Visit Provider Orthopaedic Surgery
DX: M16.12 Unilateral primary osteoarthritis, left hip (principal)
CPT/HCPCS: 97110; 97162; 97530

== ENCOUNTER → 2025-01-14 | Outpatient (CLI) | payer MEDICARE, BC, SELFPAY ==
[2025-01-14 11:32] LABS: Mucous, Urine 0 SEEN /hpf (<or=2+)
[2025-01-14 15:15] LABS: Absolute Lymphocyte Count 1.22 X10^3/uL (0.83-4.51); Absolute Neutrophil Count 2.8 X10^3/uL (2.0-7.7); Basophil# 0.05 X10^3/uL; Eosinophil# 0.21 X10^3/uL; Eosinophils% 4.3 % (0-5); Hematocrit 38.2 % (37-47); Hemoglobin 12.1 g/dL (12.0-15.0); Lymphocyte # 1.22 X10^3/ul (0.83-4.51); Mean Corp Hgb Conc 31.7 g/dL (32-36); Mean Corpuscular Hgb 30.3 pg (27.0-32.0); Mean Corpuscular Volume 95.7 fL (81-99); Mean Platelet Vol. 9.5 fl (6.2-12.0); Monocyte# 0.57 X10^3/uL; Monocyte% 11.7 % (0-10); NRBC Flagged by Analyzer 0 % (0-5); Neutrophil # 2.81 X10^3/uL (2.7-7.7); Neutrophil % 57.6 % (47-70); Platelet Count 299 K/mm3 (150-450); RBC Distribution Width CV 12.8 % (11.6-14.6); RBC Distribution Width SD 45.4 fl (35.1-43.9); Red Blood Count 3.99 M/mm3 (4.2-5.4); White Blood Count 4.9 K/mm3 (4.4-11.0)
[2025-01-14 15:22] LABS: Color, Urine Yellow (Yellow); Glucose, Dipstick Normal (Normal); Ketone-Dipstick Negative (Negative); Leukocyte Esterase-Dipstick 100 /ul (Negative); Nitrite-Dipstick Positive (Negative); Occult Blood-Urine 25 /ul (Negative); Protein-Dipstick Negative (Negative); Urine Bilirubin Dipstick Negative (Negative); Urine Clarity Sl. Cloudy (Clear); Urine Urobilinogen Normal (Normal)
[2025-01-14 15:29] LABS: Bacteria 3+ /hpf (None Seen); Red Blood Cells-Urine 0 SEEN /hpf (0-5); Squamous Epithelial Cells - UA 0-5 SEEN /hpf (5-10); White Blood Cells 0-5 SEEN /hpf (0-5)
[2025-01-14 17:49] LABS: PTHIN 31 pg/mL (11-61)
[2025-01-14 17:52] LABS: Protein, Urine (Random) 11.8 mg/dL (0.0-12.0); Protein:Creat Ratio 278 mg/g CRE (0-200)
[2025-01-14 18:16] LABS: ALB/GLOB Ratio 1.5 RATIO (0.9-2.4); AST(SGOT) 34 U/L (<=31); Alanine Aminotransfer ALT/SGPT 35 U/L (<=34); Albumin, Serum 4.3 g/dL (3.4-4.8); Alkaline Phosphatase 87 U/L (35-104); Anion Gap 12 (5-15); BUN 26 mg/dL (4-19); BUN/Creat Ratio 21.7 RATIO (10-20); Calcium,Total 10.3 mg/dL (7.6-11.0); Carbon Dioxide 24.6 mmol/L (21.0-32.0); Chloride 104 mmol/L (98-108); Cholesterol 133 mg/dL (<=200); Creatinine, Serum 1.21 mg/dL (0.70-1.20); EST Glomerular Filtration Rate 49 (>60); Globulin 2.9 g/dL (2.2-4.2); Glucose 82 mg/dL (70-99); High Density Lipoprotein 52 mg/dL; Low Density Lipoprotein Calc. 62 mg/dL; Potassium 4.6 mmol/L (3.3-5.1); Protein, Total 7.3 g/dL (5.9-8.4); Sodium Level 141 mmol/L (133-145); Triglycerides 97 mg/dL; Very Low Density Lipoprotein 19 mg/dL (5-40); cholesterol:hdl ratio screen 2.58
[2025-01-14 18:38] LABS: Vitamin D,25 Hydroxy 66.2 ng/mL (30-100)
== END | disposition home or self-care (01) ==
LOC: MFPLAB 11:24
PROVIDERS: PCP Family Medicine; Referring Provider Family Medicine; Visit Provider Family Medicine
DX: F17.200 Nicotine dependence, unspecified, uncomplicated (principal); N18.30 Chronic kidney disease, stage 3 unspecified; E78.5 Hyperlipidemia, unspecified; K21.9 Gastro-esophageal reflux disease without esophagitis
CPT/HCPCS: 36415; 80053; 80061; 81001; 82306; 82570; 83970; 84156; 85025

== ENCOUNTER 2025-02-27 09:46 | Day surgery (SDC) | payer MEDICARE, BC, SELFPAY ==
[2025-02-27] VITALS (8 sets, daily range): BP systolic 109–156; BP diastolic 72–99; PULSE 69–94; RESP 16; TEMP 36.1–36.7; O2SAT 93–100
[2025-02-27] MEDS: Lactated Ringers 1,000 ML 15 ML IV (10:29)
--- NOTE | 2025-02-27 10:51 | PCM.HP.STD ---
HPI - General General Date of Admission: 02/27/25 Date of Service: 02/27/25 Chief Complaint: EGD HPI Narrative The patient is a 69-year-old female who is being seen today for EGD. Her last EGD was performed about 3 years ago. This was just prior to a Yamila fundoplication/hiatal hernia repair surgery as treatment of Izaguirre's. 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 She states that her symptoms of reflux and heartburn have not been present since surgery. She continues to stay on PPI therapy as well. She was told to have a repeat EGD in 3 years. She presents today to discuss getting this arranged. It appears that her last colonoscopy was in 2021 as well. This was unremarkable. [facility] Medical History Former smoker Post-menopausal Vertigo PONV (postoperative nausea and vomiting) Gastric reflux Shortness of breath on exertion Former smoker Heart murmur Marijuana use Restless legs Heartburn Hiatal hernia Wears glasses Alcohol use High cholesterol Back pain Chronic cough Leg cramps History of irregular heartbeat Acid reflux Constipation Arthritis Dysphagia injection in hip Home Medications ?Medication ?Instructions ?Recorded ?Last Taken ?Type cholecalciferol (vitamin D3) 50 50 mcg PO DAILY 09/22/21 11/17/24 History mcg (2,000 unit) capsule oxaprozin 600 mg tablet 600 mg PO BID 09/22/21 11/17/24 History cyclobenzaprine 10 mg tablet 10 mg PO HS 11/11/21 11/17/24 History oxymetazoline 0.05 % nasal spray 1 spray intranasal ONCE PRN DRY 11/11/21 04/09/22 History (12 Hour Nasal Relief [place]) NOSE aspirin 81 mg tablet 81 mg PO DAILY 11/30/21 02/24/25 History atorvastatin 40 mg tablet 40 mg PO QHS 11/30/21 11/17/24 History famotidine 20 mg tablet 20 mg PO DAILY #90 tabs 07/24/22 11/18/24 Rx estradiol 0.01% (0.1 mg/gram) See Rx Instructions vaginal 02/13/23 Unknown Rx vaginal cream .COMPLEX #42.5 grams oxyquinoline 0.025 %-sodium lauryl See Rx Instructions vaginal 08/13/24 Unknown Rx sulfate 0.01 % vaginal gel .COMPLEX #113.4 grams (Trimo-Wallis Jelly) denosumab 60 mg/mL subcutaneous 60 mg subcut [id number] 08/25/24 Unknown History syringe (Prolia) calcium 600 mg (as 1 tab PO DAILY 02/23/25 Unknown History carbonate)-vitamin D3 5 mcg (200 unit) tablet (Calcium 600 + D(3)) Allergy/AdvReac Type Severity Reaction Status Date / Time Tea (Nataly Sinensis) Allergy Intermediate Hives Verified 02/27/25 10:06 green tea Allergy PT UNSURE Verified 02/27/25 10:06 OF REACTION orange juice Allergy Unknown Verified 02/27/25 10:06 nickel AdvReac Severe Rash Verified 02/27/25 10:06 Family History Mother Diabetes Heart disease Hypertension High cholesterol Sister Diabetes Heart disease High cholesterol Hypertension Father Diabetes Daughter Thyroid disorder Surgical History (Updated 02/23/25 @ 13:37 by Siobhan Mota) H/O total hip arthroplasty S/P hernia repair History of endoscopy History of colonoscopy History of appendectomy History of cataract surgery History of tubal ligation Social History household members: spouse and other details: grandson number of children: 2 current occupational status: retired history of recent travel: No Smoking Status: Former smoker alcohol intake: current alcohol intake frequency: a few times a month details: socially substance use type: does not use what type of physical activity do you participate in: none seatbelt use: always do you feel safe at home: Yes additional social history: - Isaak Vital Signs Vital Signs Vital Signs: 02/27/25 10:08 02/27/25 10:08 Temperature 98.1 F Temperature Source Temporal Pulse Rate 69 Respiratory Rate 16 Respiratory Pattern Normal Blood Pressure 137/99 H Blood Pressure Mean 111 Blood Pressure Source Monitor Blood Pressure Position Semi-Fowlers Blood Pressure Location Left Arm Pulse Ox 98 Oxygen Delivery Method Room Air Physical Exam Const alert, oriented x3 and no apparent distress Assessment & Plan Assessment/Plan (1) Izaguirre's esophagus determined by biopsy: PLAN: Plan EGD with biopsies today
--- NOTE | 2025-02-27 10:54 | PRE.ANES_ITS ---
ASA Classification* ASA Classification ASA Classification: 2 Assessment & Plan Anesthesia* Anesthesia Assessment Anesthesia Assessment: Discussed sedation and/or anesthesia options, risks, benefits, and alternatives with patient/parents/legal guardian/POA. Questions invited. The patient/parents/legal guardian/POA seems to understand and agrees to proceed with anesthesia plan. Reviewed the physical assessment, medical history, allergy history and patient home medications list prior to surgery/procedure/anesthetic and documented any changes. Performed airway and anesthesia risk assessments. Anesthesia Type Anesthesia Type: MAC History Source History Obtained from:: Patient and Chart Anesthesia Focused Assessment* Temperature: 98.1 F Pulse Rate: 69 Blood Pressure: 137/99 Respiratory Rate: 16 Pulse Ox: 98 Oxygen Delivery Method: Room Air Airway Assessment Mouth opens: >3 cm Mallampati Score: III Teeth Condition: Missing (Patient has several missing teeth. Everything else is tight.) Neck Range of motion (ROM): Limited ROM (slight decrease in extension) Focused Labs Anesthesia Preop lab: CBC WBC 4.9 K/mm3 (4.4-11.0) 01/14/25 11:01/14/25 RBC 3.99 M/mm3 (4.2-5.4) L 01/14/25 11:24 01/14/25 Hgb 12.1 g/dL (12.0-15.0) 01/14/25 11:24 01/14/25 Hct 38.2 % (37-47) 01/14/25 11:24 01/14/25 Plt Count 299 K/mm3 (150-450) 01/14/25 11:24 01/14/25 CHEMISTRY Potassium 4.6 mmol/L (3.3-5.1) 01/14/25 11:24 01/14/25 Sodium 141 mmol/L (133-145) 01/14/25 11:01/14/25 Magnesium 1.8 mg/dL (1.6-2.6) 11/10/24 12:05 11/10/24 BUN 26 mg/dL (4-19) H 01/14/25 11:24 01/14/25 Creatinine 1.21 mg/dL (0.70-1.20) H 01/14/25 11:24 Glucose 82 mg/dL (70-99) 01/14/25 11:24 01/14/25 POC Glucose 67 mg/dL (74-106) L 11/18/24 06:32 11/18/24 COAG PT 13.1 SECONDS (11.7-14.9) 11/10/24 12:05 Pre-Assessment Diagnosis/Proposed Procedure Planned Operative Procedure(s): EGD Anesthesia History Anesthesia History - food and beverage order clerk: Anesthesia History - food and beverage order clerk Hx Hospitalization No 02/23/25 13:37 Any Problems With Anesthesia No 02/23/25 13:37 Cholinesterase deficiency No 02/23/25 13:37 You/Your Family Experience No 02/23/25 13:37 fever (hyperthermia) with Relationship Recent Exposure to Contagious No 02/27/25 10:08 Disease Does patient have nerve No 02/23/25 13:37 stimulator Patient instructed to have device shut off --Does patient have Pacemaker No 02/27/25 10:08 or ICD? When Was Last Pacemaker Check QUESTION #4 FULL TEXT: You/Your Family Experience fever (hyperthermia) with Anesthesia Last Oral Intake Last Oral intake: Last Oral Intake NPO since 20:00 02/27/25 10:08 Meds taken in AM with sips of No 02/27/25 10:08 water? Meds patient instructed to take am of surgery PONV PONV - food and beverage order clerk: PONV - food and beverage order clerk Female Yes 02/23/25 13:37 HX of Motion Sickness Yes 02/23/25 13:37 HX of N/V After Surgery No 02/23/25 13:37 Non-Smoker Yes 02/23/25 13:37 Duration of Surgery greater No 02/23/25 13:37 than 60 minutes Number of Risk Factors 3 02/23/25 13:37 PONV Score Moderate Risk 02/23/25 13:37 Height & Weight Height & Weight: Anesthesia: Height & Weight Height 5 ft 7 in 02/27/25 10:08 Respiratory Assessment Respiratory Assessment - food and beverage order clerk: Respiratory Tract Infection Hx - food and beverage order clerk Hx Respiratory Tract Infection No 02/23/25 13:37 Any additional information?: Yes Hx Respiratory Tract Infection: Yes (Patient h as had a cough about a week ago. Resolved for couple days now.) STOP Sleep Apnea STOP Sleep Apnea - food and beverage order clerk: STOP Sleep Apnea - food and beverage order clerk Hx Hypertension No 02/23/25 13:37 Hx Sleep Apnea No 02/23/25 13:37 CPAP No 02/23/25 13:37 BIPAP Do you snore loudly (louder No 02/23/25 13:37 than talking or can be heard Do you often feel tired/ No 02/23/25 13:37 fatigued/ sleepy during daytime? Has anyone observed you stop No 02/23/25 13:37 breathing during sleep? STOP Results Negative 02/23/25 13:37 QUESTION #5 FULL TEXT : Do you snore loudly (louder than talking or can be heard through closed doors)? 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 Specify any problems Hx of Preganancy in last 3 No 02/23/25 13:37 Months Nurse Filling Out Transfusion VCHRISTIN 02/23/25 13:37 & Questions: Date: 02/23/25 02/23/25 13:37 Time: 13:38 02/23/25 13:37 Patient unable to answer at this time (ie. confused, unrespo /Reproduction History /Reproductive History - food and beverage order clerk: /Reproductive Hx- food and beverage order clerk Hx Now Gestational Age (in weeks): EDC: Hx Hx Para Hx Section SAB No 02/23/25 13:37 Active Medications Active Medications: Current Medications Generic Name Dose Route Start Last Admin Trade Name Freq PRN Reason Stop Dose Admin Lactated Ringer's 1,000 mls @ 15 mls/hr 02/27/25 10:15 02/27/25 10:29 IV 15 mls/hr .Q48H PHILIP Administration PFSH Medical History Former smoker Post-menopausal Vertigo PONV (postoperative nausea and vomiting) Gastric reflux Shortness of breath on exertion Former smoker Heart murmur Marijuana use Restless legs Heartburn Hiatal hernia Wears glasses Alcohol use High cholesterol Back pain Chronic cough Leg cramps History of irregular heartbeat Acid reflux Constipation Arthritis Dysphagia injection in hip Home Medications ?Medication ?Instructions ?Recorded ?Last Taken ?Type cholecalciferol (vitamin D3) 50 50 mcg PO DAILY 11/17/24 History mcg (2,000 unit) capsule oxaprozin 600 mg tablet 600 mg PO BID 09/22/2111/17 History cyclobenzaprine 10 mg tablet 10 mg PO HS 11/11/2111/05 History oxymetazoline 0.05 % nasal spray 1 spray intranasal ON CE PRN DRY 11/11/21 04/09/22 History (12 Hour Nasal Relief [place]) NOSE aspirin 81 mg tablet 81 mg PO DAILY 11/30/2102/04 History atorvastatin 40 mg tablet 40 mg PO QHS 11/30/21 History famotidine 20 mg tablet 20 mg PO DAILY #90 tabs 07/0611/18/24 Rx estradiol 0.01% (0.1 mg/gram) See Rx Instructions vagi nal 02/13/23 Unknown Rx vaginal cream .COMPLEX #42.5 grams oxyquinoline 0.025 %-sodium lauryl See Rx Instructions vaginal 08/13/24 Unknown Rx sulfate 0.01 % vaginal gel .COMPLEX #113.4 grams (Trimo-Wallis Jelly) denosumab 60 mg/mL subcutaneous 60 mg subcut [id number] 08/25/24 Unknown History syringe (Prolia) calcium 600 mg (as 1 tab PO DAILY 02/23/25 Unkn own History carbonate)-vitamin D3 5 mcg (200 unit) tablet (Calcium 600 + D(3)) Allergy/AdvReac Type Severity Reaction Status Date / Time Tea (Nataly Sinensis) Allergy Intermediate Hives Verified 02/27/25 10:06 green tea Allergy PT UNSURE Verified 02/27/25 10:06 OF REACTION orange juice Allergy Unknown Verified 02/27/25 10:06 nickel AdvReac Severe Rash Verified 02/27/25 10:06 Family History Mother Diabetes Heart disease Hypertension High cholesterol Sister Diabetes Heart disease High cholesterol Hypertension Father Diabetes Daughter Thyroid disorder Surgical History H/O total hip arthroplasty S/P hernia repair History of endoscopy History of colonoscopy History of appendectomy History of cataract surgery History of tubal ligation Social History household members: spouse and other details: grandson number of children: 2 current occupational status: retired history of recent travel: No Smoking Status: Former smoker alcohol intake: current alcohol intake frequency: a few times a month details: socially substance use type: does not use what type of physical activity do you participate in: none seatbelt use: always do you feel safe at home: Yes additional social history: - Isaak Review of Systems (Anesthesia) ROS Narrative System reviewed and no additional complaints, except as documented.
--- NOTE | 2025-02-27 11:00 | EGD_PTH ---
PATIENT: RYAN MAYBERRY LOC: EN U#:[id number] AGE/SX: 69/F ROOM: RE02/27/[address]: Dr. Vernon Canas MD : 1955 BED: DIS: 02/27/2025 SPEC #: [id number] RECD: 02/27/25 11:49 STATUS: CHARITO RESerene #: [id number] DAYO: 02/27/25 11:[address]: Vernon Canas DEPT: SURGICAL PATHOLOGY RECD BY: Artemio Lopez ENTERED: 02/27/25 13:22 SP TYPE: EGD BIOPSY KVNG DR: Dr. Anastacio Lloyd MD Tissues: A - Gastric mucous membrane B - Esophagus, NOS Procedures: Immunohistochemical Stains Surgery Specimen Level IV HEADER OPERATION: EGD biopsy PRE-OP DIAGNOSIS: Izaguirre's esophagus determined by biopsy TISSUE SUBMITTED: A- Gastric antrum biopsy, B- Gastroesophageal junction biopsy MICROSCOPIC DIAGNOSIS A. Stomach, antrum, biopsy: Antral mucosa with features of reactive gastropathy. IHC negative for H.pylori organisms. B. Gastroesophageal junction, biopsy: Squamous mucosa with reactive changes. Columnar mucosa with goblet cell metaplasia - see note. Negative for dysplasia. Note: The diagnosis depends on the location of the biopsy and the extent of the mucosal irregularity. If the biopsy originates from the tubular esophagus and the mucosal irregularity extends at least 1 cm above the top of the gastric folds, this represents Izaguirre mucosa. If the biopsy originates from the gastric cardia and/or the mucosal irregularity is less than 1 cm in extent, this represents intestinal metaplasia. MICROSCOPIC DESCRIPTION Slides are reviewed. All matched controls show reacted appropriately. These tests were developed and their performance characteristics determined by [facility]. They may not have been cleared or approved by the U.S. Food and Drug Administration. The FDA has determined that such clearance or approval is not necessary. The above immunohistochemical/dualISH markers are ordered and reviewed by the Pathologist. GROSS DESCRIPTION A. Received in formalin in a container labeled with the patient's name, date of , and gastric antrum biopsy for H. pylori and histology is a 0.4 x 0.3 x 0.3 cm fragment of pate-pink mucosal tissue. Submitted in toto in A1. B. Received in formalin in a container labeled with the patient's name, date of , and GE junction biopsy rule out Izaguirre's are multiple pate-pink fragments of mucosal tissue measuring 0.7 x 0.7 x 0.3 cm in aggregate. Submitted in toto in B1. B 02-27-2025 CPT:29740m7,50850
--- NOTE | 2025-02-27 11:16 | PCM.POST.ANE ---
Anesthesia: Postop Eval I Current Vital Signs Temperature: 97 F Pulse Rate: 94 Blood Pressure: 156/87 Respiratory Rate: 16 Pulse Ox: 100 Oxygen Delivery Method: Room Air Assessment Airway patent: Yes Spontaneous unlabored respirations: Yes Mental status: Awake and Calm nausea: No Vomiting: No Anesthesia Complication: No Fluid Hydration Crystalloid volume administer (ml): 500 Total IV fluid infused: 500 Progress Note Anesthesia document: Postop Eval 1 completed: Yes
--- NOTE | 2025-02-27 11:22 | OP.EGD_ITS ---
Patient Name: Pilar Persaud Procedure Date: 02/27/2025 10:47 AM Date of : 1955 Age: 69 Procedure: Upper GI endoscopy Indications: Follow-up of Izaguirre's esophagus Providers: Vernon Canas MD Referring MD: Anastacio Lloyd Medicines: Monitored Anesthesia Care Patient Profile: Refer to note in patient chart for documentation of history and physical. Complications: No immediate complications. Estimated blood loss: Minimal. Procedure: Pre-Anesthesia Assessment: - Prior to the procedure, a History and Physical was performed, and patient medications and allergies were reviewed. The patient's tolerance of previous anesthesia was also reviewed. The risks and benefits of the procedure and the sedation options and risks were discussed with the patient. All questions were answered, and informed consent was obtained. Prior Anticoagulants: The patient has taken no anticoagulant or antiplatelet agents. ASA Grade Assessment: II - A patient with mild systemic disease. After reviewing the risks and benefits, the patient was deemed in satisfactory condition to undergo the procedure. After obtaining informed consent, the endoscope was passed under direct vision. Throughout the procedure, the patient's blood pressure, pulse, and oxygen saturations were monitored continuously. The Endoscope was introduced through the mouth, and advanced to the duodenal bulb. The upper GI endoscopy was accomplished without difficulty. The patient tolerated the procedure well. Moderate Sedation: See the other procedure note for documentation of moderate sedation with intraservice time. Scope In: 11:07:35 AM Scope Out: 11:14:31 AM Total Procedure Duration Time 0 hours 6 minutes 56 seconds Findings: The in the duodenum was normal. Patchy mildly erythematous mucosa without bleeding was found in the gastric antrum. Biopsies were taken with a cold forceps for Helicobacter pylori testing. A small hiatal hernia was present. No gross lesions were noted in the entire esophagus. Mucosa was biopsied with a cold forceps for histology randomly at the gastroesophageal junction. Verification of patient identification for the specimen was done by the nurse using the patient's name, date and medical record number. Impression: - Normal. - Erythematous mucosa in the antrum. Biopsied. - Small hiatal hernia. - No gross lesions in the entire esophagus. Biopsied. Recommendation: - Discharge patient to home (ambulatory). - Resume previous diet. - Continue present medications. - Await pathology results. - Repeat upper endoscopy in 3 years for surveillance. - Return to my office PRN. Procedure Code(s): --- Professional --- 24391, Esophagogastroduodenoscopy, flexible, transoral; with biopsy, single or multiple Diagnosis Code(s): --- Professional --- K22.70, 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 K44.9, Diaphragmatic hernia without obstruction or gangrene K31.89, Other diseases of stomach and duodenum CPT copyright 2021 [employer]. All rights reserved. The codes documented in this report are preliminary and upon clinical coder review may be revised to meet current compliance requirements. Vernon Canas MD 02/27/2025 11:22:44 AM This report has been signed electronically. Number of Addenda: 0 Note Initiated On: 02/27/2025 10:47 AM
--- NOTE | 2025-02-27 11:23 | OP.CCLET_ITS ---
02/27/2025 Anastacio Lloyd [address] [place] [address] Re : Upper GI endoscopy procedure for Pilar Hung Dear Dr. Lloyd This procedure was performed on Thursday, February 27, 2025. My impressions and recommendations are as follows: Impressions : - Normal. - Erythematous mucosa in the antrum. Biopsied. - Small hiatal hernia. - No gross lesions in the entire esophagus. Biopsied. Recommendations : - Discharge patient to home (ambulatory). - Resume previous diet. - Continue present medications. - Await pathology results. - Repeat upper endoscopy in 3 years for surveillance. - Return to my office PRN. My findings are described in the full procedure note, which is enclosed. If I can be of further assistance, please feel free to contact me at . Sincerely, Vernon Canas MD 02/27/2025 11:22:44 AM This report has been signed electronically.
--- NOTE | 2025-02-27 11:35 | POSTOPAN2_ITS ---
Anesthesia Postop Eval I Sum Postop Eval Completion status Anesthesia document: Postop Eval 1 completed: Yes Anesthesia Postop Eval I Summary Anesthesia Postop Eval I Summary: Anesthesia Postop Eval I: Assessment Summary Airway patent Yes 02/27/25 11:17 FEDERAL APPELLATE LAW CLERK.MDOT Spontaneous unlabored Yes 02/27/25 11:17 FEDERAL APPELLATE LAW CLERK.MDOT respirations Mental status Awake,Calm 02/27/25 11:17 FEDERAL APPELLATE LAW CLERK.MDOT nausea No 02/27/25 11:17 FEDERAL APPELLATE LAW CLERK.MDOT Vomiting No 02/27/25 11:17 FEDERAL APPELLATE LAW CLERK.MDOT Anesthesia Postop Eval I: Fluid Summary Crystalloid volume administer 500 02/27/25 11:17 FEDERAL APPELLATE LAW CLERK.MDOT (ml) Colloids volume administered ( ml) Blood Product volume administered (ml) Total IV fluid infused 500 02/27/25 11:17 FEDERAL APPELLATE LAW CLERK.MDOT Anesthesia Postop Eval I: Summary Notes Anesthesia Complication No 02/27/25 11:17 FEDERAL APPELLATE LAW CLERK.MDOT Anesthesia Complication Comment: Post-operative progress note Anesthesia: Postop Eval II Evaluation Mental status: Awake and Calm Pain Level: 0 nausea: No Vomiting: No Complications Anesthesia Complication: No
--- NOTE | 2025-02-27 11:35 | PCM.POSTANE2 ---
Anesthesia Postop Eval I Sum Postop Eval Completion status Anesthesia document: Postop Eval 1 completed: Yes Anesthesia Postop Eval I Summary Anesthesia Postop Eval I Summary: Anesthesia Postop Eval I: Assessment Summary Airway patent Yes 02/27/25 11:17 INTERNET MARKETING SPECIALIST.MDOT Spontaneous unlabored Yes 02/27/25 11:17 INTERNET MARKETING SPECIALIST.MDOT respirations Mental status Awake,Calm 02/27/25 11:17 INTERNET MARKETING SPECIALIST.MDOT nausea No 02/27/25 11:17 INTERNET MARKETING SPECIALIST.MDOT Vomiting No 02/27/25 11:17 INTERNET MARKETING SPECIALIST.MDOT Anesthesia Postop Eval I: Fluid Summary Crystalloid volume administer 500 02/27/25 11:17 INTERNET MARKETING SPECIALIST.MDOT (ml) Colloids volume administered ( ml) Blood Product volume administered (ml) Total IV fluid infused 500 02/27/25 11:17 INTERNET MARKETING SPECIALIST.MDOT Anesthesia Postop Eval I: Summary Notes Anesthesia Complication No 02/27/25 11:17 INTERNET MARKETING SPECIALIST.MDOT Anesthesia Complication Comment: Post-operative progress note Anesthesia: Postop Eval II Evaluation Mental status: Awake and Calm Pain Level: 0 nausea: No Vomiting: No Complications Anesthesia Complication: No
== END 2025-02-27 12:12 | disposition home or self-care (01) ==
LOC: EN 09:47 → AC 09:49
PROVIDERS: PCP Family Medicine; Referring Provider Family Medicine; Visit Provider Surgery
PROC: 0DJ08ZZ Inspection of Upper Intestinal Tract, Via Natural or Artificial Opening Endoscopic (ICD-10-PCS; CPT 43235; principal; 2025-02-27 10:55)
DX: K22.70 Barrett's esophagus without dysplasia (principal); K31.89 Other diseases of stomach and duodenum; K44.9 Diaphragmatic hernia without obstruction or gangrene; E78.00 Pure hypercholesterolemia, unspecified; Z79.82 Long term (current) use of aspirin; Z79.899 Other long term (current) drug therapy; Z87.891 Personal history of nicotine dependence
CPT/HCPCS: 43239; 88305; 88342

== ENCOUNTER → 2025-05-19 | Outpatient (CLI) | payer MEDICARE, BC, SELFPAY ==
--- NOTE | 2025-05-19 12:48 | RAD_ITS ---
EXAM: XR Left Fingers, 2 or More Views CLINICAL INDICATION: LEFT THUMB PAIN X 2-3 MONTHS TECHNIQUE: Frontal, lateral and oblique views of the fingers of the left hand. COMPARISON: No relevant prior studies available. FINDINGS: BONES/JOINTS: Moderate degenerative changes of the 1st carpometacarpal joint. No acute fracture. No dislocation. SOFT TISSUES: Unremarkable. No radiopaque foreign body. RAD/Finger(s) Min 2 Views IMPRESSION: Degenerative changes as above. Reading Location: [id number]
--- NOTE | 2025-05-19 12:48 | RAD_ITS ---
EXAM: XR Left Fingers, 2 or More Views CLINICAL INDICATION: LEFT THUMB PAIN X 2-3 MONTHS TECHNIQUE: Frontal, lateral and oblique views of the fingers of the left hand. COMPARISON: No relevant prior studies available. FINDINGS: BONES/JOINTS: Moderate degenerative changes of the 1st carpometacarpal joint. No acute fracture. No dislocation. SOFT TISSUES: Unremarkable. No radiopaque foreign body. RAD/Finger(s) Min 2 Views IMPRESSION: Degenerative changes as above. Reading Location: [id number]
[2025-05-19 15:16] LABS: Hematocrit 39.0 % (37-47); Hemoglobin 12.7 g/dL (12.0-15.0); Immature Granulocytes Count 0.020 X10^3/uL (0.0-0.0); Mean Corp Hgb Conc 32.6 g/dL (32-36); Mean Corpuscular Volume 92.0 fL (81-99); Mean Platelet Vol. 9.5 fl (6.2-12.0); NRBC Flagged by Analyzer 0 % (0-5); Platelet Count 297 K/mm3 (150-450); RBC Distribution Width CV 13.0 % (11.6-14.6); RBC Distribution Width SD 43.6 fl (35.1-43.9); Red Blood Count 4.24 M/mm3 (4.2-5.4); White Blood Count 7.0 K/mm3 (4.4-11.0)
[2025-05-19 15:58] LABS: AST(SGOT) 26 U/L (<=31); Alanine Aminotransfer ALT/SGPT 23 U/L (<=34); Albumin, Serum 4.2 g/dL (3.4-4.8); Alkaline Phosphatase 102 U/L (35-104); Anion Gap 11 (5-15); BUN 19 mg/dL (4-19); BUN/Creat Ratio 13.7 RATIO (10-20); Calcium,Total 10.1 mg/dL (7.6-11.0); Carbon Dioxide 24.0 mmol/L (21.0-32.0); Chloride 106 mmol/L (98-108); Cholesterol 119 mg/dL (<=200); Globulin 3.2 g/dL (2.2-4.2); Glucose 78 mg/dL (70-99); Low Density Lipoprotein Calc. 50 mg/dL; Potassium 4.5 mmol/L (3.3-5.1); Triglycerides 116 mg/dL; Very Low Density Lipoprotein 23 mg/dL (5-40); Vitamin D,25 Hydroxy 67.4 ng/mL (30-100); cholesterol:hdl ratio screen 2.60
--- OUTSIDE RECORDS SUMMARY | 2025-05-19 21:27 | XMS RPT_ITS | CCD ---
Author Organization [facility] Providers Care Health And Safety Representative Name Role Phone Anastacio Strauss DO Primary Care Provider Dr. Anastacio Lloyd Primary Care Provider [phone] Dr. Anastacio Lloyd Referring Provider Cebul, Dr. Kevin Godwin Attending Provider Cebul, Dr. Kevin Godwin Referring Provider Cebul, Dr. Kevin Godwin Other Provider Dr. Anastacio Lloyd Primary Care Provider [phone] Cebul, Dr. Kevin Godwin Attending Provider Cebul, Dr. Kevin Godwin Referring Provider Dr. Anastacio Lloyd Referring Provider KARLO Charles Attending Provider Cebul, Dr. Kevin Godwin Other Provider Cebul, Dr. Kevin Godwin Admit Provider Dr. Anastacio Lloyd Primary Care Provider [phone] Dr. Jony Wong Attending Provider Dr. Aron East Referring Provider Dr. Anastacio Lloyd Referring Provider Cebul, Dr. Kevin Godwin Attending Provider Cebul, Dr. Kevin Godwin Referring Provider Dr. Anastacio Lloyd Primary Care Provider [phone] Dr. Anastacio Lloyd Referring Provider Dr. Kevin Lux Attending Provider Dr. Anastacio Lloyd Primary Care Provider Dr. Anastacio Lloyd Referring Provider Dr. Yadiel Quinn Attending Provider Dr. Juan Miguel Eli Attending Provider Dr. Anastacio Lloyd Primary Care Provider Dr. Anastacio Lloyd Referring Provider [place] [employer], [employer]-C Maribel Attending Provider Dr. Anastacio Lloyd Primary Care Provider Dr. Anastacio Lloyd Referring Provider [place] [employer], [employer] Maribel Attending Provider Dr. Anastacio Lloyd Primary Care Provider Dr. Anastacio Lloyd Referring Provider Sandy [employer], [employer] Maribel Attending Provider Dr. Anastacio Lloyd Primary Care Provider Dr. Anastacio Lloyd Referring Provider [place] [employer], [employer] Maribel Attending Provider Dr. Anastacio Lloyd MD Primary Care Provider Dr. Yadiel Quinn DO Attending Provider Dr. Yadiel Quinn DO Referring Provider Dr. Yadiel Quinn DO Other Provider Dr. Anastacio Lloyd MD Referring Provider Dr. Juan Miguel Eli MD Attending Provider Dr. Anastacio Lloyd MD Attending Provider Dr. Anastacio Lloyd MD Primary Care Provider Dr. Yadiel Quinn DO Attending Provider Dr. Yadiel Quinn DO Referring Provider Prema GATES, Dr. Anastacio Barrientos Referring Provider Missael GATSE, Dr. Vernon San Attending Provider Missael GATES, Dr. Vernon San Other Provider Sandy ALLEN-C, Maribel Attending Provider Anastacio Lloyd Primary Care Unavailable Anastacio Lloyd Referring Unavailable Vernon Canas Attending Unavailable Anastacio Lloyd Referring Unavailable SandyMaribel Attending Unavailable Anastacio Lloyd Primary Care Unavailable SchAnastacio ayala Referring Unavailable SandyMaribel Attending Unavailable SchAnastacio ayala Primary Care Unavailable Schlucy, Anastacio Barrientos Primary Care Unavailable BorrusoYadiel Attending Unavailable KenyonsoYadiel Consulting Unavailable Yadiel Quinn Referring Unavailable Maribel Delgado Referring Unavailable Maribel Delgado Attending Unavailable Anastacio Lloyd Primary Care Unavailable Schlucy, Anastacio Barrientos Primary Care Unavailable SchAnastacio ayala Attending Unavailable SchinAnastacio león Referring Unavailable SchinnerAnastacio Primary Care Unavailable SchAnastacio ayala Attending Unavailable Maribel Delgado Attending Unavailable SchAnastacio ayala Primary Care Unavailable Maribel Delgado Referring Unavailable SchAnastacio ayala Primary Care Unavailable BorrusoYadiel Referring Unavailable BorrusoYadiel Attending Unavailable SchAnastacio ayala Primary Care Unavailable SchAnastacio ayala Referring Unavailable Vernon Canas Attending Unavailable Vernon Canas Consulting Unavailable SchAnastacio ayala Primary Care Unavailable SchAnastacio ayala Referring Unavailable BormimisoYadiel Attending Unavailable Chi Black Attending Unavailable SchinAnastacio león Primary Care Unavailable SchAnastacio ayala Referring Unavailable SchAnastacio ayala Primary Care Unavailable Juan Miguel Eli Attending Unavailable Anastacio Lloyd Primary Care Unavailable SchAnastacio ayala Referring Unavailable BorrusoYadiel Attending Unavailable Anastacio Lloyd Primary Care Unavailable Yadiel Quinn Attending Unavailable Yadiel Quinn Referring Unavailable Anastacio Lloyd Primary Care Unavailable Yadiel Quinn Referring Unavailable KenyonsoYadiel Attending Unavailable Anastacio Lloyd Attending Unavailable Schlucy, Anastacio E Primary Care Unavailable SchAnastacio ayala Referring Unavailable Schinner, Anastacio E Primary Care Unavailable Anastacio Lloyd Referring Unavailable Anastacio Lloyd Attending Unavailable Anastacio Lloyd Attending Unavailable Anastacio Lloyd Referring Unavailable Anastacio Lloyd Primary Care Unavailable Anastacio Lloyd Primary Care Unavailable Anastacio Lloyd Referring Unavailable Vernon Canas Attending Unavailable Anastacio Lloyd Primary Care Unavailable Yadiel Quinn Referring Unavailable Yadiel Quinn Attending Unavailable Anastacio Lloyd Primary Care Unavailable Anastacio Lloyd Referring Unavailable Yadiel Quinn Attending Unavailable Anastacio Lloyd Primary Care Unavailable Juan Miguel Eli Attending Unavailable Anastacio Lloyd Primary Care Unavailable Anastacio Lloyd Referring Unavailable Yadiel Quinn Attending Unavailable Allergies Allergy Classification Reported Allergen(s) Allergy Type Date of Onset Reaction(s) Facility nickel sulfate (6 sources) nickel sulfate Drug Allergy 6 orange allergenic extract (6 sources) orange allergenic extract Drug Allergy 6 Unclassified (9 sources) Tea Propensity to adverse reactions to drug 0 Unknown (13 sources) nickel Drug Allergy 2 Unknown, Rash [facility] (13 sources) [place] juice Allergy to substance 2 Unknown [facility] (10 sources) Green Tea Extract Drug Allergy 2 PT UNSURE OF REACTION [facility] (2 sources) Tea (Nataly Sinensis); Translations: [Tea (Nataly Sinensis)] Allergy to substance 5 Hives [facility] (1 source) Green Tea Extract Drug Allergy 5 [facility] (1 source) nickel Drug Allergy 5 [facility] (1 source) [place] juice Drug allergy (disorder) 5 [facility] Medications Current Medications Medication Drug Class(es) Dates Sig (Normalized) Sig (Original) aspirin 81 mg oral tablet (13 sources) Platelet Aggregation Inhibitor, Nonsteroidal Anti-inflammatory Drug Start: 11-30-2021 take 1 tablet by mouth once daily Aspirin 81 mg Tablet Active 81 mg PO DAILY November 30, 2021 1:00am atorvastatin 40 mg oral tablet (20 sources) HMG-CoA Reductase Inhibitor Start: 11-30-2021 take 1 tablet by mouth at bedtime Atorvastatin 40 mg tablet Active 40 mg PO AT BEDTIME November 30, 2021 1:00am Start: 09-22-2021 End: 11-11-2021 take 1 tablet by mouth once daily Atorvastatin 40 mg tablet Discontinued 40 mg PO DAILY September 22, 2021 1:00am November 11, 2021 9:29am calcium carbonate 1500 mg / cholecalciferol 200 unt oral tablet (1 source) Vitamin D Start: 02-23-2025 Calcium Carbonate-Vitamin D3 (Calcium 600 + D(3)) 600 mg-5 mcg (200 unit) tablet Active 1 {tbl} PO DAILY February 23, 2025 12:00am cholecalciferol 0.05 mg oral capsule (13 sources) Vitamin D Start: 09-22-2021 take 1 capsule by mouth once daily Cholecalciferol (Vitamin D3) 50 mcg (2,000 unit) capsule Active 50 ug PO DAILY September 22, 2021 1:00am cyclobenzaprine hydrochloride 10 mg oral tablet (19 sources) Muscle Relaxant Start: 11-11-2021 take 1 tablet by mouth at bedtime Cyclobenzaprine 10 mg tablet Active 10 mg PO BEDTIME November 11, 2021 1:00am Start: 02-28-2021 take 1 tablet by chartiy th three times daily as needed cyclobenzaprine 10 MG tablet Indications: Cervicalgia , Disorder of bone and cartilage , Primary osteoarthritis of both hands , Bilateral hip pain , Chronic pain of left knee , Primary osteoarthritis of both feet , Fatigue, unspecified type , AKASH positive , 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 [employer] current use of non-steroidal anti-inflammatories (NSAID) , Arterial bruit 1 po tid PRN 90 tablet 02/28/2021 Active 1 ml denosumab 60 mg/ml prefilled syringe (2 sources) RANK Ligand Inhibitor Start: 08-25-2024 Denosuma b (Prolia) 60 mg/mL syringe Active 60 mg SC every 6 months August 25, 2024 12:00am estradiol 0.1 mg/ml vaginal cream (7 sources) Estrogen Start: 02-13-2023 Estradiol 0.01 % (0.1 mg/gram) cream Active 0 VAGINAL .COMPLEX 42.5 February 13, 2023 12:00am small amount as directed vaginal 3 times per week; Start: 02-13-2023 Estradiol Acti ve 0 VAGINAL .COMPLEX 42.5 February 13, 2023 12:00am small amount as directed vaginal 3 times per week; famotidine 20 mg oral tablet (10 sources) Histamine-2 Receptor Antagonist Start: 07-24-2022 take 1 tablet by mouth once daily Famotidine 20 mg tablet Active 20 mg PO DAILY July 24, 2022 12:00am oxaprozin 600 mg oral tablet (20 sources) Nonsteroidal Anti-inflammatory Drug Start: 09-22-2021 take 1 tablet by mouth twice daily Oxaprozin 600 mg tablet Active 600 mg PO TWICE A DAY September 22, 2021 1:00am Start: 02-28-2021 take 2 tablets by [facility] once daily as needed oxaprozin 600 MG tablet Indications: Cervicalgia , Disorder of bone and cartilage , Primary osteoarthritis of both hands , Bilateral hip pain , Chronic pain of left knee , Primary osteoarthritis of both feet , Fatigue, unspecified type , AKASH positive , [employer] current use of non-steroidal anti-inflammatories (NSAID) , Arterial bruit 2 po q day PRN 180 tablet 3 02/28/2021 Active Start: 12-09-2020 End: 02-28-2021 take 1 tablet by mouth once daily oxaprozin 600 MG tablet Take 600 mg by mouth daily. 0 12/09/2020 02/28/2021 Discontinued oxymetazoline hydrochloride 0.5 mg/ml nasal spray (13 sources) Start: 11-11-2021 Oxymetazoline (12 Hour Nasal Relief [place]) 0.05 % spray,non-aerosol Active 1 NMA INTRANASAL ONCE as needed for DRY NOSE November 11, 2021 1:00am Vitamin D-Vitamin K (Dosoquin) 5500-200 UNIT-MCG tablet (5 sources) Start: 02-28-2021 take 1 tablet by mouth once daily Vitamin D-Vitamin K (Dosoquin) 5500-200 UNIT-MCG tablet Indications: Vitamin D deficiency 1 po q day 30 tablet 11 02/28/2021 Active Completed/Discontinued Medications Medication Drug Class(es) Dates Sig (Normalized) Sig (Original) acetaminophen 500 mg oral tablet (2 sources) Start: 11-18-2024 End: 02-05-2025 take 2 tablets by mouth every six hours Acetaminophen 500 mg tablet Discontinued 1000 mg PO EVERY 6 HOURS 100 November 18, 2024 1:00am February 05, 2025 12:58pm acetaminophen 325 mg / HYDROcodone bitartrate 5 mg oral tablet (12 sources) Opioid Agonist Start: 04-11-2022 End: 12-06-2022 Hydrocodone-Acetami nophen 5-325 mg tablet Discontinued 1 {tbl} PO EVERY 6 HOURS as needed for pain 8 2 April 11, 2022 December 06, 2022 3:51pm Start: 04-11-2022 End: 12-06-2022 take 1 tablet by mouth every six hours Hydrocodone-Acetaminophen Discontinued 1 TABLET PO EVERY 6 HOURS 8 2 April 11, 2022 December 06, 2022 3:51pm apixaban 2.5 mg oral tablet (2 sources) Factor Xa Inhibitor Start: 11-18-2024 End: 12-29-2024 take 1 tablet by mouth twice daily in the morning Apixaban (Eliquis) 2.5 mg tablet Discontinued 2.5 mg PO TWICE A DAY 42 November 18, 2024 1:00am December 29, 2024 11:28am Begin morning after surgery. cephalexin 500 mg oral capsule (15 sources) Cephalosporin Antibacterial Start: 11-18-2024 End: 12-01-2024 Cephalexin 500 mg capsule Discontinued 1000 mg PO Q8H 4 November 18, 2024 1:00am December 01, 2024 11:30am Take 2 tabs before you go to bed and 2 tabs after 5 AM morning after surgery when you wake up Start: 11-03-2020 End: 11-10-2020 take 1 capsule by mouth every twelve hours Cephalexin (Keflex) 500 mg capsule Discontinued 500 mg PO Q12H 14 November 03, 2020 1:00am November 09, 2020 1:00am November 10, 2020 1:02am oxyquinoline sulfate 0.77762 mg/mg / sodium dodecyl sulfate 0.0001 mg/mg vaginal gel (11 sources) Start: 02-13-2023 End: 08-13-2024 Oxyquinoline-Sod.Lauryl Sulf at (Trimo-Wallis Jelly) 0.025-0.01 % gel Discontinued 0 VAGINAL .COMPLEX 113.4 April 29, 2024 4:12pm August 13, 2024 10:59am 1 application VAGINAL once a week; Start: 02-13-2023 Oxyquinoline-S od.Lauryl Sulfat (Trimo-Wallis Jelly) 0.025-0.01 % gel Active 0 VAGINAL .COMPLEX 113.4 February 13, 2023 12:00am 1 application VAGINAL once a week; ibuprofen 600 mg oral tablet (1 source) Nonsteroidal Anti-inflammatory Drug Start: 03-01-2021 End: 03-30-2021 take 1 tablet by mouth three times daily ibuprofen 600 MG tablet TAKE 1 TABLET BY MOUTH THREE TIMES DAILY FOR 5 DAYS 0 03/01/2021 03/30/2021 Discontinued LORazepam 1 mg oral tablet (13 sources) Benzodiazepine Start: 12-19-2021 End: 01-04-2022 Lorazepam (Ativan) 1 mg tablet Discontinued 3 mg PO DAILY as needed for anxiety December 19, 2021 1:00am January 04, 2022 4:04pm Take 3 tablets 45 minutes prior to procedure nitrofurantoin, macrocrystals 25 mg / nitrofurantoin, monohydrate 75 mg oral capsule (17 sources) Nitrofuran Antibacterial Start: 01-01-2024 End: 01-08-2024 take 1 capsule by mouth twice daily at mealtime Nitrofurantoin Monohyd/M-Cryst (Macrobid) 100 mg capsule Discontinued 100 mg PO TWICE A DAY 14 January 01, 2024 1:00am January 07, 2024 1:00am January 08, 2024 1:04am must administer with a meal/food Start: 09-22-2021 End: 09-29-2021 take 1 capsule by mouth twice daily at mealtime Nitrofurantoin Monohyd/M-Cryst (Macrobid) 100 mg capsule Discontinued 100 mg PO TWICE A DAY 14 September 22, 2021 1:00am September 28, 2021 1:00am September 29, 2021 1:01am must administer with a meal/food omeprazole 20 mg delayed release oral capsule (13 sources) Proton Pump Inhibitor Start: 11-11-2021 End: 07-24-2022 take 1 capsule by mouth once daily Omeprazole 20 mg capsule,delayed release(DR/EC) Discontinued 20 mg PO DAILY November 11, 2021 1:00am July 24, 2022 12:59pm oxyCODONE hydrochloride 5 mg oral tablet (2 sources) Opioid Agonist Start: 11-18-2024 End: 12-01-2024 take 5-10 mg by mouth every four hours as needed for pain Oxycodone 5 mg tablet Discontinued 5 - 10 mg PO Q4H as needed for pain 60 7 November 18, 2024 December 01, 2024 11:30am sulfamethoxazole 800 mg / trimethoprim 160 mg oral tablet (3 sources) Dihydrofolate Reductase Inhibitor Antibacterial, Sulfonamide Antimicrobial Start: 02-18-2024 End: 02-23-2024 Sulfamethoxazole-Tr imethoprim 800-160 mg tablet Discontinued 1 {tbl} PO TWICE A DAY 10 February 18, 2024 12:00am February 22, 2024 12:00am February 23, 2024 12:16am Start: 02-18-2024 take 1 tablet by twice daily Sulfamethoxazole-Trimethoprim Active 1 T ABLET PO TWICE A DAY 10 February 18, 2024 12:00am Problems Active Problems Problem Classification Problem Date Documented Da te Episodic/Chronic Abdominal hernia (20 sources) Gastroesophageal reflux disease with hiatal hernia; Translations: [Diaphragmatic hernia without obstruction or gangrene] Episodic Chronic kidney disease (1 source) Chronic kidney disease; Translations: [Chronic kidney disease, stage 3 unspecified] Onset: 4 Conditions associated with dizziness or vertigo (14 sources) Dizziness; Translations: [Dizziness and giddiness] Episodic Esophageal disorders (20 sources) Izaguirre's esophagus; Translations: [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] Onset: 5 Chronic Genitourinary symptoms and ill-defined conditions (3 sources) Dysuria; Translations: [Dysuria] 01-01-2024 Episodic Immunizations and screening for infectious disease (12 sources) Anti-nuclear factor positive; Translations: [Other specified abnormal immunological findings in serum] Onset: 1 Episodic Malaise and fatigue (11 sources) Fatigue; Translations: [Other fatigue] Onset: 1 Episodic Nutritional deficiencies (2 sources) Vitamin D deficiency; Translations: [Vitamin D deficiency, unspecified] Onset: 1 Chronic Osteoarthritis (20 sources) Osteoarthritis of joint of bilateral hands; Translations: [Primary osteoarthritis, right hand] Onset: 1 Chronic Osteoporosis (1 source) Age-related osteoporosis without current pathological fracture; Translations: [Age-related osteoporosis without current pathological fracture] Onset: 4 Chronic Other acquired deformities (2 sources) Lumbar spondylolisthesis; Translations: [Spondylolisthesis, lumbar region] 09-05-2024 Episodic Other aftercare (20 sources) Patient encounter status; 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 I will recommend to the patient that we add a colonoscopy to her upper endoscopy.Kevin Lux M.D., F.A.C.S. Other aftercare (5 sources) Follow-up status; Translations: [Encounter for other orthopedic aftercare] 12-01-2024 Episodic Other bone disease and musculoskeletal deformities (11 sources) Disorder of skeletal system; Translations: [Disorder of bone, unspecified] Onset: 1 Episodic Other circulatory disease (11 sources) Arterial bruit; Translations: [Other specified symptoms and signs involving the circulatory and respiratory systems] Onset: 1 Episodic Other connective tissue disease (1 source) Presence of left artificial hip joint; Translations: [Presence of left artificial hip joint] Onset: 5 Chronic Other gastrointestinal disorders (13 sources) Dysphagia; Translations: [Dysphagia, unspecified] 11-11-2021 Episodic Other gastrointestinal disorders (13 sources) Constipation; Translations: [Constipation, unspecified] 11-11-2021 Episodic Other gastrointestinal disorders (2 sources) Constipation, unspecified; Translations: [Constipation, unspecified] Episodic Other nervous system disorders (8 sources) Piriformis syndrome; Translations: [Lesion of sciatic nerve, left lower limb] 12-06-2022 Chronic Other nervous system disorders (1 source) Lesion of sciatic nerve, left lower limb; Translations: [Lesion of sciatic nerve] 12-06-2022 Chronic Other nervous system disorders (2 sources) Acute postoperative pain; Translations: [Other acute postprocedural pain] 11-18-2024 Episodic Other non-traumatic joint disorders (11 sources) Hip pain; Translations: [Pain in right hip] Onset: 1 Episodic Other non-traumatic joint disorders (11 sources) Knee pain; Translations: [Pain in left knee] Onset: 1 Episodic Other screening for suspected conditions (not mental disorders or infectious disease) (6 sources) Blood urea abnormal; Translations: [Abnormal finding of blood chemistry, unspecified] Onset: 1 Episodic Other skin disorders (7 sources) Epidermoid cyst; Translations: [Epidermal cyst] 04-03-2023 Episodic Comment on above: right groin/drained. If recurs ref gen surgery Other skin disorders (2 sources) Epidermal cyst; Translations: [Sebaceous cyst] 04-03-2023 Episodic Prolapse of female genital organs (11 sources) Cystocele; Translations: [Cystocele, unspecified] 02-13-2023 Chronic Comment on above: #5 ring pessary;estr adiol cream and trimosan gel Rehabilitation care; fitting of prostheses; and adjustment of devices (11 sources) Patient encounter status; Translations: [Encounter for fitting and adjustment of other specified devices] 02-13-2023 Chronic Residual codes; unclassified (8 sources) Tobacco user; Translations: [Tobacco use] 12-06-2022 Episodic Comment on above: enc cessation Residual codes; unclassified (1 source) Tobacco use; Translations: [Tobacco use disorder] 12-06-2022 Episodic Spondylosis; intervertebral disc disorders; other back problems (9 sources) Degeneration of lumbar intervertebral disc; Translations: [Other intervertebral disc degeneration, lumbar region] 12-06-2022 Chronic Spondylosis; intervertebral disc disorders; other back problems (20 sources) Neck pain; Translations: [Cervicalgia] Onset: 1 Episodic Substance-related disorders (1 source) Nicotine dependence, unspecified, uncomplicated; Translations: [Nicotine dependence, unspecified, uncomplicated] Onset: 5 Chronic Unclassified (1 source) Low back pain, unspecified; Translations: [Low back pain, unspecified] Onset: 4 Unclassified (1 source) Other intervertebral disc degeneration, lumbar region without mention of lumbar back pain or lower extremity pain; Translations: [Other intervertebral disc degeneration, lumbar region without mention of lumbar back pain or lower extremity pain] Onset: 4 Urinary tract infections (2 sources) Acute cystitis; Translations: [Acute cystitis with hematuria] Onset: Episodic Past or Other Problems Problem Classification Problem Date Documented Da te Episodic/Chronic Unclassified (11 sources) injection in hip 05-24-2022 Results Test Name Value Interpretation Reference Range Facility Setup Operator Office Visit Reporton 04-14-2025 Setup Operator Office Visit Report [facility] [address], [address] [place] [address] OFFICE VISIT Date of Service: 04/14/25 MR#: [id number] Acct: [id number] Name: PILAR PERSAUD Rep #: [id number] : 1955 Provider: DEBBIE basilio Age/Sex: 69/F Location: [facility] Status: Signed Intake Vital Signs 11/18/24 06:33 02/27/25 10:08 04/14/25 11:12 04/14/25 11:17 Height 5 ft 7 in 5 ft 7 in 5 ft 7 in 5 ft 7 in Weight: 186 lb 2 oz BMI 29.1 BP 142/78 H Intake Visit 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 Is patient in pain?: No Allergies Tea (Nataly Sinensis) Allergy (Intermediate, Verified 04/14/25 11:22) Hives green tea Allergy (Verified 04/14/25 11:22) PT UNSURE OF REACTION orange juice Allergy (Verified 04/14/25 11:22) Unknown nickel Adverse Reaction (Severe, Verified 04/14/25 11:22) Rash Medications ???Medication ???Instructions ???Recorded ???Confirmed ???Type cholecalciferol (vitamin D3) 50 50 mcg PO DAILY 09/22/21 04/14/25 History mcg (2,000 unit) capsule oxaprozin 600 mg tablet 600 mg PO BID 09/22/21 04/14/25 Hi story cyclobenzaprine 10 mg tablet 10 mg PO HS 11/11/21 04/14/25 Hist ory oxymetazoline 0.05 % nasal spray 1 spray intranasal ONCE PRN DRY 04/14/25 History (12 Hour Nasal Relief [place]) NOSE aspirin 81 mg tablet 81 mg PO DAILY 11/30/21 04/14/25 H istory atorvastatin 40 mg tablet 40 mg PO QHS 11/30/21 04/14/25 His tory famotidine 20 mg tablet 20 mg PO DAILY #90 tabs 07/24/22 0 04/14/25 Rx estradiol 0.01% (0.1 mg/gram) See Rx Instructions vaginal 04/14/25 Rx vaginal cream .COMPLEX #42.5 grams oxyquinoline 0.025 %-sodium lauryl See Rx Instructions vaginal 07/2904/14/25 Rx sulfate 0.01 % vaginal gel .COMPLEX #113.4 grams (Trimo-Wallis Jelly) denosumab 60 mg/mL subcutaneous 60 mg subcut [id number] 08/25/2408/29 History syringe (Prolia) calcium 600 mg (as 1 tab PO DAILY 02/23/25 04/14/25 H istory carbonate)-vitamin D3 5 mcg (200 unit) tablet (Calcium 600 + D(3)) Is last menstrual period known: No Post menopausal: Yes Patient : No : No PFSH Medical History Former smoker Post-menopausal Vertigo PONV (postoperative nausea and vomiting) Gastric reflux Shortness of breath on exertion Former smoker Heart murmur Marijuana use Restless legs Heartburn Hiatal hernia Wears glasses Alcohol use High cholesterol Back pain Chronic cough Leg cramps History of irregular heartbeat Acid reflux Constipation Arthritis Dysphagia injection in hip Surgical History H/O total hip arthroplasty S/P hernia repair History of endoscopy History of colonoscopy History of appendectomy History of cataract surgery History of tubal ligation Family History Mother Diabetes Heart disease Hypertension High cholesterol Sister Diabetes Heart disease High cholesterol Hypertension Father Diabetes Daughter Thyroid disorder Social History household members: spouse and other details: grandson number of children: 2 current occupational status: retired history of recent travel: No Smoking Status: Former smoker alcohol intake: current alcohol intake frequency: a few times a month details: socially substance use type: does not use what type of physical activity do you participate in: none seatbelt use: always do you feel safe at home: Yes additional social history: - Isaak History 3 Elective abortions Hx Para 2 Spontaneous abortions Hx # Term Pregnancies Ectopic pregnancies Hx # Pregnancies Multiple births # of living children 2 HPI Encounter for routine gynecological examination Details: PILAR PERSAUD is a 69 year old who presents for annual exam. Pessary out since November due to hip replacement. Put it in 4 days ago and now can't get it out. Is more active again and needs pessary. Denies other concerns. Last PAP: NA History of abnormal PAP: no Last mammogram: 05/2024 History of abnormal mammogram: no Colon cancer screenin Other preventative health care screenings: Cas Female Reproductive History Questions: metorrhagia: No and sexually active: No ROS Const Constitutional: Denies fatigue, weight gain or weight loss Cardio Card: Denies chest pain Resp Resp: Denies cough or dyspnea on exertion GI GI: Denies abdominal pain, bloating, change in stool character, constipation or vomiting : Reports as per HPI; Denies difficulty voiding, pelvic pain, (more content not included)... Normal [facility] EGD Reporton 02-27-2025 EGD Report [facility] Medical Records Department [address] [place] [address] EGD Report MR#: [id number] Acct: [id number] Name: PILAR PERSAUD Rep #: [id number] : 1955 69 From: Vernon Canas MD PCP: Dr. Anastacio Lloyd MD Status:[facility] Patient Name: Pilar Persaud Procedure Date: 02/27/2025 10:47 AM Date of : 1955 Age: 69 Procedure: Upper GI endoscopy Indications: Follow-up of Izaguirre's esophagus Providers: Vernon Canas MD Referring MD: Anastacio Lloyd Medicines: Monitored Anesthesia Care Patient Profile: Refer to note in patient chart for documentation of history and physical. Complications: No immediate complications. Estimated blood loss: Minimal. Procedure: Pre-Anesthesia Assessment: - Prior to the procedure, a History and Physical was performed, and patient medications and allergies were reviewed. The patient's tolerance of previous anesthesia was also reviewed. The risks and benefits of the procedure and the sedation options and risks were discussed with the patient. All questions were answered, and informed consent was obtained. Prior Anticoagulants: The patient has taken no anticoagulant or antiplatelet agents. ASA Grade Assessment: II - A patient with mild systemic disease. After reviewing the risks and benefits, the patient was deemed in satisfactory condition to undergo the procedure. After obtaining informed consent, the endoscope was passed under direct vision. Throughout the procedure, the patient's blood pressure, pulse, and oxygen saturations were monitored continuously. The Endoscope was introduced through the mouth, and advanced to the duodenal bulb. The upper GI endoscopy was accomplished without difficulty. The patient tolerated the procedure well. Moderate Sedation: See the other procedure note for documentation of moderate sedation with intraservice time. Scope In: 11:07:35 AM Scope Out: 11:14:31 AM Total Procedure Duration Time 0 hours 6 minutes 56 seconds Findings: The in the duodenum was normal. Patchy mildly erythematous mucosa without bleeding was found in the gastric antrum. Biopsies were taken with a cold forceps for Helicobacter pylori testing. A small hiatal hernia was present. No gross lesions were noted in the entire esophagus. Mucosa was biopsied with a cold forceps for histology randomly at the gastroesophageal junction. Verification of patient identification for the specimen was done by the nurse using the patient's name, date and medical record number. Impression: - Normal. - Erythematous mucosa in the antrum. Biopsied. - Small hiatal hernia. - No gross lesions in the entire esophagus. Biopsied. Recommendation: - Discharge patient to home (ambulatory). - Resume previous diet. - Continue present medications. - Await pathology results. - Repeat upper endoscopy in 3 years for surveillance. - Return to my office PRN. Procedure Code(s): --- Professional --- 53321, Esophagogastroduodenoscopy, flexible, transoral; with biopsy, single or multiple Diagnosis Code(s): --- Professional --- K22.70, 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 K44.9, Diaphragmatic hernia without obstruction or gangrene K31.89, Other diseases of stomach and duodenum CPT copyright 2021 [employer]. All rights reserved. The codes documented in this report are preliminary and upon edge inker review may be revised to meet current compliance requirements. Vernon Canas MD 02/27/2025 11:22:44 AM This report has been signed electronically. Number of Addenda: 0 Note Initiated On: 02/27/2025 10:47 AM 02/27/25 1122 Date Vernon Canas MD [facility] Signature: Date (if indicated) CC: Dr. Anastacio Lloyd MD; Dr. Vernon Canas MD Date Dictated: 02/27/251046 Date Transcribed: Global Director Air And Climate Change: KELLIE Signed [facility] Immunohistochemical Stainson 02-27-2025 Immunohistochemical Stains Patient Age/Sex Location Account Attending Physician PILAR PERSAUD 69/F EN [id number] Dr. Vernon Canas MD Specimen: [id number] Received: 02/27/25 Status: CHARITO Beck Num: [id number] Spec Type: EGD BIOPSY Subm Dr: Dr. Vernon Canas MD HEADER OPERATION: EGD biopsy PRE-OP DIAGNOSIS: Izaguirre's esophagus determined by biopsy TISSUE SUBMITTED: A- Gastric antrum biopsy, B- Gastroesophageal junction biopsy MICROSCOPIC DIAGNOSIS A. Stomach, antrum, biopsy: Antral mucosa with features of reactive gastropathy. IHC negative for H.pylori organisms. B. Gastroesophageal junction, biopsy: Squamous mucosa with reactive changes. Columnar mucosa with goblet cell metaplasia - see note. Negative for dysplasia. Note: The diagnosis depends on the location of the biopsy and the extent of the mucosal irregularity. If the biopsy originates from the tubular esophagus and the mucosal irregularity extends at least 1 cm above the top of the gastric folds, this represents Izaguirre mucosa. If the biopsy originates from the gastric cardia and/or the mucosal irregularity is less than 1 cm in extent, this represents intestinal metaplasia. MICROSCOPIC DESCRIPTION Slides are reviewed. All matched controls show reacted appropriately. These tests were developed and their performance characteristics determined by [facility]. They may not have been cleared or approved by the U.S. Food and Drug Administration. The FDA has determined that such clearance or approval is not necessary. The above immunohistochemical/dualISH markers are ordered and reviewed by the Pathologist. GROSS DESCRIPTION A. Received in formalin in a container labeled with the patient's name, date of , and gastric antrum biopsy for H. pylori and histology is a 0.4 x 0.3 x 0.3 cm fragment of pate-pink mucosal tissue. Submitted in toto in A1. B. Received in formalin in a container labeled with the patient's name, date of , and GE junction biopsy rule out Izaguirre's are multiple pate-pink fragments of mucosal tissue measuring 0.7 x 0.7 x 0.3 cm in aggregate. Submitted in toto in B1. [facility] 02-27-2025 CPT:16924g0,99579 Patient Age/Sex Location Account Attending Physician PILAR PERSAUD 69/F EN [id number] Dr. Vernon Canas MD Signed (signature on file) Dr. Teresita Brock MD 03/09/25 0841 [facility] Comment on above: Performed By: #### L 501.0900 #### [facility] [address] [place], [address] MR/POSTOP.ANEon 02-27-2025 MR/POSTOP.ANE [facility] Medical Records Department [address] [place] [address] Anesthesia Postop Eval I 02/27/25 1116 MR#: [id number] Acct: [id number] Name: SHAWANDAEDWARDPILAR BEN Rep #: [id number] : 1955 69 From: Rios Campos PCP: Dr. Anastacio Lloyd MD Status:REG SDC Y Race: C Location: [place] [address] Anesthesia: Postop Eval I Current Vital Signs Temperature: 97 F Pulse Rate: 94 Blood Pressure: 156/87 Respiratory Rate: 16 Pulse Ox: 100 Oxygen Delivery Method: Room Air Assessment Airway patent: Yes Spontaneous unlabored respirations: Yes Mental status: Awake and Calm nausea: No Vomiting: No Anesthesia Complication: No Fluid Hydration Crystalloid volume administer (ml): 500 Total IV fluid infused: 500 Progress Note Anesthesia document: Postop Eval 1 completed: Yes 02/27/251116 Date Rios Rebollar Signature: Date CC: Signed Normal [facility] MR/CEEWSDQQ7eb 02-27-2025 MR/POSTOPAN2 [facility] Medical Records Department [address] [place] [address] Anesthesia Postop Eval II 02/27/25 1135 MR#: [id number] Acct: [id number] Name: SHAWANDAEDWARDPILAR BEN Rep #: [id number] : 1955 69 From: Rios Campos PCP: Dr. Anastacio Lloyd MD Status:REG SDC Y Race: C Location: [address] Anesthesia Postop Eval I Sum Postop Eval Completion status Anesthesia document: Postop Eval 1 completed: Yes Anesthesia Postop Eval I Summary Anesthesia Postop Eval I Summary: Anesthesia Postop Eval I: Assessment Summary Airway patent Yes 02/27/25 11:17 REGULATORY AFFAIRS MANAGER.MDOT Spontaneous unlabored Yes 02/27/25 11:17 REGULATORY AFFAIRS MANAGER.MDOT respirations Mental status Awake,Calm 02/27/25 11:17 REGULATORY AFFAIRS MANAGER.MDOT nausea No 02/27/25 11:17 REGULATORY AFFAIRS MANAGER.MDOT Vomiting No 02/27/25 11:17 REGULATORY AFFAIRS MANAGER.MDOT Anesthesia Postop Eval I: Fluid Summary Crystalloid volume administer 500 02/27/25 11:17 REGULATORY AFFAIRS MANAGER.MDOT (ml) Colloids volume administered ( ml) Blood Product volume administered (ml) Total IV fluid infused 500 02/27/25 11:17 REGULATORY AFFAIRS MANAGER.MDOT Anesthesia Postop Eval I: Summary Notes Anesthesia Complication No 02/27/25 11:17 REGULATORY AFFAIRS MANAGER.MDOT Anesthesia Complication Comment: Post-operative progress note Anesthesia: Postop Eval II Evaluation Mental status: Awake and Calm Pain Level: 0 nausea: No Vomiting: No Complications Anesthesia Complication: No 02/27/25 1135 Date Rios Rebollar Signature: Date CC: Signed Normal [facility] Surgery Visit Reporton 02-05 Surgery Visit Report [facility] [address] [place] [address] [address] [place], [place] [address] OFFICE VISIT Date of Service: 02/05/25 MR#: [id number] Acct: [id number] Name: PILAR PERSAUD Rep #: [id number] : 1955 Provider: Dr. Vernon lema MD Age/Sex: 69/F Location: [facility] Status: Signed Intake Vital Signs 11/18/24 06:33 02/05/25 12:57 Height 5 ft 7 in 5 ft 7 in Weight: 184 lb 4 oz BMI 28.8 BP 152/82 H Blood Pressure Location Rt brachial Position Sitting Respiration 18 Pulse 76 Pulse Source Monitor Temp 97.8 F Temp Source Temporal Pulse Oximetry (%) 98 Oxygen Delivery Method room air Intake Visit Reasons: GERD, HX OF BARRETTS Chief Complaint: GERD, hx of barrets Is patient in pain?: No Allergies green tea Allergy (Verified 02/05/25 12:58) PT UNSURE OF REACTION orange juice Allergy (Verified 02/05/25 12:58) Unknown nickel Adverse Reaction (Severe, Verified 02/05/25 12:58) Rash Medications ???Medication ???Instructions ???Recorded ???Confirmed ???Type cholecalciferol (vitamin D3) 50 50 mcg PO DAILY 09/22/21 02/05/25 History mcg (2,000 unit) capsule oxaprozin 600 mg tablet 600 mg PO BID 09/22/21 02/05/25 Hi story Held on 11/18/24. Instructions: May resume after completion of blood thinner if needed cyclobenzaprine 10 mg tablet 10 mg PO HS 11/11/21 02/05/25 Hist ory oxymetazoline 0.05 % nasal spray 1 spray intranasal ONCE PRN DRY 02/05/25 History (12 Hour Nasal Relief [place]) NOSE aspirin 81 mg tablet 81 mg PO DAILY 11/30/21 02/05/25 H istory Held on 11/18/24. Instructions: Resume on 11/21/24. atorvastatin 40 mg tablet 40 mg PO QHS 11/30/21 02/05/25 His tory famotidine 20 mg tablet 20 mg PO DAILY #90 tabs 07/24/22 0 02/05/25 Rx estradiol 0.01% (0.1 mg/gram) See Rx Instructions vaginal 02/05/25 Rx vaginal cream .COMPLEX #42.5 grams oxyquinoline 0.025 %-sodium lauryl See Rx Instructions vaginal 10/0 07/2902/05/25 Rx sulfate 0.01 % vaginal gel .COMPLEX #113.4 grams (Trimo-Wallis Jelly) denosumab 60 mg/mL subcutaneous 60 mg subcut [id number] 08/25/2401/27 History syringe (Prolia) Have you fallen in the past year?: No PFSH Medical History Post-menopausal Vertigo PONV (postoperative nausea and vomiting) Gastric reflux Shortness of breath on exertion Former smoker Heart murmur Marijuana use Restless legs Heartburn Hiatal hernia Wears glasses Alcohol use High cholesterol Back pain Smoker Chronic cough Leg cramps History of irregular heartbeat Acid reflux Constipation Arthritis Dysphagia injection in hip Surgical History H/O total hip arthroplasty S/P hernia repair History of endoscopy History of colonoscopy History of appendectomy History of cataract surgery History of tubal ligation Family History Mother Diabetes Heart disease Hypertension High cholesterol Sister Diabetes Heart disease High cholesterol Hypertension Father Diabetes Daughter Thyroid disorder Social History household members: spouse and other details: grandson number of children: 2 current occupational status: retired history of recent travel: No Smoking Status: Former smoker alcohol intake: current alcohol intake frequency: a few times a month details: socially substance use type: does not use what type of physical activity do you participate in: none seatbelt use: always do you feel safe at home: Yes additional social history: - Isaak HPI HPI HPI: The patient is a 69-year-old female who is being seen today to discuss EGD. Her last EGD was performed about 3 years ago. This was just prior to a Gloria fundoplication/hiatal hernia repair surgery as treatment of Izaguirre's. She was found to have Izaugirre's esophagus at her previous scope. She states that her symptoms of reflux and heartburn have not been present since surgery. She continues to stay on PPI therapy as well. She was told to have a repeat EGD in 3 years. She presents today to discuss getting this arranged. It appears that her last colonoscopy was in 2021 as well. This was unremarkable. ROS General General: Yes weight change; No appetite, fatigue, colon cancer, breast cancer or weakness HEENT HEENT: No difficulty swallowing, eye injury, eye surgery, swollen glands or hoarseness Endo Endocrine: No thyroid disease, diabetes mellitus, thyroid cancer, Hair loss, heat intolerance or cold intolerance Skin Skin: No rash or changing moles Musc Musculoskeletal: Yes ba (more content not included)... Normal [facility] Absolute lymphocyte countOrd ered By: Anastacio Lloyd on 01-14-2025 Lymphocytes Auto (Unsp spec) [#/Vol] 1.22 10*3/uL 0.83-4.51 [facility] Absolute neutrophil countOrd ered By: Anastacio Lloyd on 01-14-2025 Neutrophils (Bld) [#/Vol] 2.8 10*3/uL 2.0-7.7 [facility] Anion gap in Serum or Plasma Ordered By: Anastacio Lloyd on 01-14-2025 Anion gap [Moles/Vol] 12 mmol/L 5-15 [facility] Automated lymphocyte count a s percentage of total leukocytesOrdered By: Anastacio Lloyd on 01-14-2025 Lymphocytes/100 WBC Auto (Unsp spec) 25.0 % 19-41 [facility] BUN/creatinine ratioOrdered By: Anastacio Lloyd on 01-14-2025 Urea nitrogen/Creatinine [Mass ratio] 21.7 mg/mg High 10-20 [facility] Basophil percentageOrdered B y: Anastacio Lloyd on 01-14-2025 Basophils/100 WBC (Bld) 1.0 % 0-1 [facility] Bilirubin Test strip Ql (U)O rdered By: Anastacio Lloyd on 01-14-2025 Bilirubin Ql (U) Negative Negative [facility] Bilirubin, totalOrdered By: Anastacio Lloyd on 01-14-2025 Bilirubin [Mass/Vol] 0.30 mg/dL 0.00-1.30 [facility] CBC W/Diff, Automatedon 01-03 Absolute Lymph 1.22 X10 3/uL Normal 0.83-4.51 [facility] Comment on above: Order Comment: Order Date: 09/17/24Order Info: 0184-1 - CBCD Performed By: #### L 509.1000, L500.4100, L100.0100, L500.4050 ####[facility] [address] [place], [address] Absolute Neut 2.8 X10 3/uL Normal 2.0-7.7 [facility] Comment on above: Order Comment: Order Date: 09/17/24Order Info: 0184-1 - CBCD Performed By: #### L 509.1000, L500.4100, L100.0100, L500.4050 ####[facility] [address] [place], [address] Basophils/100 WBC (Bld) 1.0 % Normal 0-1 [facility] Comment on above: Order Comment: Order Date: 09/17/24Order Info: 0184-1 - CBCD Performed By: #### L 509.1000, L500.4100, L100.0100, L500.4050 ####[facility] [address] [place], [address] Eosinophils/100 WBC (Bld) 4.3 % Normal 0-5 [facility] Comment on above: Order Comment: Order Date: 09/17/24Order Info: 018- - CBCD Performed By: #### L 509.1000, L500.4100, L100.0100, L500.4050 ####[facility] [address] [place], [address] Erythrocyte distribution width (RBC) [Ratio] 12.8 % Normal 11.6-14.6 [facility] Comment on above: Order Comment: Order Date: 09/17/24Order Info: 0184-1 - CBCD Performed By: #### L 509.1000, L500.4100, L100.0100, L500.4050 ####[facility] [address] [place], [address] Hematocrit (Bld) [Volume fraction] 38.2 % Normal 37-47 [facility] Comment on above: Order Comment: Order Date: 09/17/24Order Info: 0184-1 - CBCD Performed By: #### L 509.1000, L500.4100, L100.0100, L500.4050 ####[facility] [address] [place], [address] Hemoglobin (Bld) [Mass/Vol] 12.1 g/dL Normal 12.0-15.0 [facility] Comment on above: Order Comment: Order Date: 09/17/24Order Info: 183- - CBCD Performed By: #### L 509.1000, L500.4100, L100.0100, L500.4050 ####[facility] [address] [place], [address] IG% 0.400 Normal 0.0-0.9 [facility] Comment on above: Order Comment: Order Date: 09/17/24Order Info: 183-11 - CBCD Result Comment: IG% - Immature Granulocytes (promyelocytes, myelocytes and metamyelocytes) > 1% indicates that a LEFT SHIFT is Present. Performed By: #### L 509.1000, L500.4100, L100.0100, L500.4050 ####[facility] [address] [place], [address] Lymphocytes/100 WBC (Bld) 25.0 % Normal 19-41 [facility] Comment on above: Order Comment: Order Date: 09/17/24Order Info: 018- - CBCD Performed By: #### L 509.1000, L500.4100, L100.0100, L500.4050 ####[facility] [address] [place], [address] MCH (RBC) [Entitic mass] 30.3 pg Normal 27.0-32.0 [facility] Comment on above: Order Comment: Order Date: 09/17/24Order Info: 018- - CBCD Performed By: #### L 509.1000, L500.4100, L100.0100, L500.4050 ####[facility] [address] [place], [address] MCHC (RBC) [Mass/Vol] 31.7 g/dL Low 32-36 [facility] Comment on above: Order Comment: Order Date: 09/17/24Order Info: 018-1 - CBCD Performed By: #### L 509.1000, L500.4100, L100.0100, L500.4050 ####[facility] [address] [place], [address] MCV (RBC) [Entitic vol] 95.7 fL Normal 81-99 [facility] Comment on above: Order Comment: Order Date: 09/17/24Order Info: 4-1 - CBCD Performed By: #### L 509.1000, L500.4100, L100.0100, L500.4050 ####[facility] [address] [place], [address] Monocytes/100 WBC (Bld) 11.7 % High 0-10 [facility] Comment on above: Order Comment: Order Date: 09/17/24Order Info: 018- - CBCD Performed By: #### L 509.1000, L500.4100, L100.0100, L500.4050 ####[facility] [address] [place], [address] Neutrophils/100 WBC (Bld) 57.6 % Normal 47-70 [facility] Comment on above: Order Comment: Order Date: 09/17/24Order Info: 0184-1 - CBCD Performed By: #### L 509.1000, L500.4100, L100.0100, L500.4050 ####[facility] [address] [place], [address] Nucleated RBC (Bld) [#/Vol] 0 10*3/uL Normal 0-5 [facility] Comment on above: Order Comment: Order Date: 09/17/24Order Info: 0184-1 - CBCD Performed By: #### L 509.1000, L500.4100, L100.0100, L500.4050 ####[facility] [address] [place], [address] Platelet mean volume (Bld) [Entitic vol] 9.5 fL Normal 6.2-12.0 [facility] Comment on above: Order Comment: Order Date: 09/17/24Order Info: 018- - CBCD Performed By: #### L 509.1000, L500.4100, L100.0100, L500.4050 ####[facility] [address] [place], [address] Platelets (Bld) [#/Vol] 299 10*3/uL Normal 150-450 [facility] Comment on above: Order Comment: Order Date: 09/17/24Order Info: 018- - CBCD Performed By: #### L 509.1000, L500.4100, L100.0100, L500.4050 ####[facility] [address] [place], [address] RBC (Bld) [#/Vol] 3.99 10*6/uL Low 4.2-5.4 [facility] Comment on above: Order Comment: Order Date: 09/17/24Order Info: 018- - CBCD Performed By: #### L 509.1000, L500.4100, L100.0100, L500.4050 ####[facility] [address] [place], [address] RDW SD 45.4 fl High 35.1-43.9 [facility] Comment on above: Order Comment: Order Date: 09/17/24Order Info: 018- - CBCD Performed By: #### L 509.1000, L500.4100, L100.0100, L500.4050 ####[facility] [address] [place], [address] WBC (Bld) [#/Vol] 4.9 10*3/uL Normal 4.4-11.0 [facility] Comment on above: Order Comment: Order Date: 09/17/24Order Info: 0184-1 - CBCD Performed By: #### L 509.1000, L500.4100, L100.0100, L500.4050 ####[facility] [address] [place], [place], [address] Calculated very low density lipoprotein (VLDL) cholesterol measurementOrdered By: Anastacio Lloyd on 01-14-2025 Calculated very low density lipoprotein (VLDL) cholesterol measurement 19 mg/dL [facility] VLDL Cholesterol 19 mg/dL [facility] Carbon dioxide, total [Moles /volume] in Central venous bloodOrdered By: Anastacio Lloyd on 01-14-2025 CO2 [Moles/Vol] 24.6 mmol/L 21.0-32.0 [facility] Chloride assayOrdered By: Nicky Lloyd on 01-14-2025 Chloride [Moles/Vol] 104 mmol/L 98-108 [facility] Comprehensive Metabolic Prof ilon 01-14-2025 Albumin [Mass/Vol] 4.3 g/dL Normal 3.4-4.8 [facility] Comment on above: Order Comment: Order Date: 09/17/24Order Info: 0786-1 - CMPOrder Info: [id number] - LIPID Performed By: #### L 509.1000, L500.4100, L100.0100, L500.4050 ####[facility] [address] [place], [place], [address] Albumin/Globulin [Mass ratio] 1.5 {ratio} Normal 0.9-2.4 [facility] Comment on above: Order Comment: Order Date: 09/17/24Order Info: 0786-1 - CMPOrder Info: [id number] - LIPID Performed By: #### L 509.1000, L500.4100, L100.0100, L500.4050 ####[facility] [address] [place], [address] ALK PHOS 87 U/L Normal 35-104 [facility] Comment on above: Order Comment: Order Date: 09/17/24Order Info: 785- - CMPOrder Info: [id number] - LIPID Performed By: #### L 509.1000, L500.4100, L100.0100, L500.4050 ####[facility] [address] [place], [address] ALT [Catalytic activity/Vol] 35 U/L Normal <=34 [facility] Comment on above: Order Comment: Order Date: 09/17/24Order Info: 785- - CMPOrder Info: [id number] - LIPID Performed By: #### L 509.1000, L500.4100, L100.0100, L500.4050 ####[facility] [address] [place], [address] AST [Catalytic activity/Vol] 34 U/L High <=31 [facility] Comment on above: Order Comment: Order Date: 09/17/24Order Info: 07 - CMPOrder Info: [id number] - LIPID Performed By: #### L 509.1000, L500.4100, L100.0100, L500.4050 ####[facility] [address] [place], [address] Bilirubin [Mass/Vol] 0.30 mg/dL Normal 0.00-1.30 [facility] Comment on above: Order Comment: Order Date: 09/17/24Order Info: [id number]- - CMPOrder Info: [id number] - LIPID Performed By: #### L 509.1000, L500.4100, L100.0100, L500.4050 ####[facility] [address] [place], [address] BUN/CRE 21.7 RATIO High 10-20 [facility] Comment on above: Order Comment: Order Date: 09/17/24Order Info: 07-1 - CMPOrder Info: [id number] - LIPID Performed By: #### L 509.1000, L500.4100, L100.0100, L500.4050 ####[facility] [address] [place], [address] Calcium [Mass/Vol] 10.3 mg/dL Normal 7.6-11.0 [facility] Comment on above: Order Comment: Order Date: 09/17/24Order Info: [id number] - CMPOrder Info: [id number] - LIPID Performed By: #### L 509.1000, L500.4100, L100.0100, L500.4050 ####[facility] [address] [place], [address] Chloride [Moles/Vol] 104 mmol/L Normal 98-108 [facility] Comment on above: Order Comment: Order Date: 09/17/24Order Info: [id number]- - CMPOrder Info: [id number] - LIPID Performed By: #### L 509.1000, L500.4100, L100.0100, L500.4050 ####[facility] [address] [place], [address] CO2 [Moles/Vol] 24.6 mmol/L Normal 21.0-32.0 [facility] Comment on above: Order Comment: Order Date: 09/17/24Order Info: [id number]- - CMPOrder Info: [id number] - LIPID Performed By: #### L 509.1000, L500.4100, L100.0100, L500.4050 ####[facility] [address] [place], [address] Creatinine [Mass/Vol] 1.21 mg/dL High 0.70-1.20 [facility] Comment on above: Order Comment: Order Date: 09/17/24Order Info: [id number] - CMPOrder Info: [id number] - LIPID Performed By: #### L 509.1000, L500.4100, L100.0100, L500.4050 ####[facility] [address] [place], [address] GAP 12 Normal 5-15 [facility] Comment on above: Order Comment: Order Date: 09/17/24Order Info: 07- - CMPOrder Info: [id number] - LIPID Performed By: #### L 509.1000, L500.4100, L100.0100, L500.4050 ####[facility] [address] [place], [address] GFR/1.73 sq M.predicted among non-blacks MDRD (S/P/Bld) [Vol rate/Area] 49 mL/min/{1.73_m2} Low >60 [facility] Comment on above: Order Comment: Order Date: 09/17/24Order Info: [id number] - CMPOrder Info: [id number] - LIPID Result Comment: mL/m in/1.73m2 CKD-EPI Creatinine Equation (2020) Performed By: #### L 509.1000, L500.4100, L100.0100, L500.4050 ####[facility] [address] [place], [address] Globulin (S) [Mass/Vol] 2.9 g/dL Normal 2.2-4.2 [facility] Comment on above: Order Comment: Order Date: 09/17/24Order Info: [id number] - CMPOrder Info: [id number] - LIPID Performed By: #### L 509.1000, L500.4100, L100.0100, L500.4050 ####[facility] [address] [place], [address] Glucose [Mass/Vol] 82 mg/dL Normal 70-99 [facility] Comment on above: Order Comment: Order Date: 09/17/24Order Info: [id number]- - CMPOrder Info: [id number] - LIPID Performed By: #### L 509.1000, L500.4100, L100.0100, L500.4050 ####[facility] [address] [place], [address] Potassium [Moles/Vol] 4.6 mmol/L Normal 3.3-5.1 [facility] Comment on above: Order Comment: Order Date: 09/17/24Order Info: [id number] - CMPOrder Info: [id number] - LIPID Performed By: #### L 509.1000, L500.4100, L100.0100, L500.4050 ####[facility] [address] [place], [address] Sodium [Moles/Vol] 141 mmol/L Normal 133-145 [facility] Comment on above: Order Comment: Order Date: 09/17/24Order Info: [id number] - CMPOrder Info: [id number] - LIPID Performed By: #### L 509.1000, L500.4100, L100.0100, L500.4050 ####[facility] [address] [place], [address] T PROT 7.3 g/dL Normal 5.9-8.4 [facility] Comment on above: Order Comment: Order Date: 09/17/24Order Info: [id number] - CMPOrder Info: [id number] - LIPID Performed By: #### L 509.1000, L500.4100, L100.0100, L500.4050 ####[facility] [address] [place], [address] Urea nitrogen [Mass/Vol] 26 mg/dL High 4-19 [facility] Comment on above: Order Comment: Order Date: 09/17/24Order Info: 07 - CMPOrder Info: [id number] - LIPID Performed By: #### L 509.1000, L500.4100, L100.0100, L500.4050 ####[facility] [address] [place], [address] Creatinine Unsp time (U) [Ma ss/Vol]Ordered By: Anastacio Lloyd on 01-14-2025 Creatinine (U) [Mass/Vol] 42.40 mg/dL 28-217 [facility] Eosinophil percentageOrdered By: Anastacio Lloyd on 01-14-2025 Eosinophils/100 WBC (Bld) 4.3 % 0-5 [facility] Epithelial cells.squamous LM Ql (Urine sed)Ordered By: Anastacio Lloyd on 01-14-2025 Epithelial cells.squamous LM.HPF (Urine sed) [#/Area] 0 /[HPF] 5-10 [facility] Erythrocyte distribution wid th ratioOrdered By: Anastacio Lloyd on 01-14-2025 Erythrocyte distribution width (RBC) [Ratio] 12.8 % 11.6-14.6 [facility] Erythrocyte distribution wid th standard deviationOrdered By: Anastacio Lloyd on 01-14-2025 Erythrocyte distribution width (RBC) [Entitic vol] 45.4 fL High 35.1-43.9 [facility] Erythrocyte distribution width (RBC) [Ratio] 45.4 fl High 35.1-43.9 [facility] GFR/1.73 sq M.predicted lexa g non-blacks MDRD (S/P/Bld) [Vol rate/Area]Ordered By: Anastacio Lloyd on 01-14-2025 Estimated GFR (MDRD) Non-Af Amer 49 Low >60 [facility] Comment on above: mL/min/1.73m2 CKD-EP I Creatinine Equation (2020) Glomerular filtration rate ( GFR) estimation/1.73 sq m using serum, plasma, or whole bOrdered By: Anastacio Lloyd on 01-14-2025 GFR/1.73 sq M.predicted among non-blacks MDRD (S/P/Bld) [Vol rate/Area] 49 mL/min/{1.73_m2} Low >60 [facility] Comment on above: mL/min/1.73m2 CKD-EP I Creatinine Equation (2020) Glucose Ql (U)Ordered By: Nicky Lloyd on 01-14-2025 Urine Glucose (UA) Normal mg/dl Normal [facility] Hematocrit Auto (Bld) [Volum e fraction]Ordered By: Anastacio Lloyd on 01-14-2025 Hematocrit (Bld) [Volume fraction] 38.2 % 37-47 [facility] Hemoglobin measurementOrdere d By: Anastacio Lloyd on 01-14-2025 Hemoglobin (Bld) [Mass/Vol] 12.1 g/dL 12.0-15.0 [facility] Immature granulocytes/100 WB C Auto (Bld)Ordered By: Anastacio Lloyd on 01-14-2025 Immature granulocytes/100 WBC (Bld) 0.400 % 0.0-0.9 [facility] Comment on above: IG% - Immature Granu locytes (promyelocytes, myelocytes and metamyelocytes) > 1% indicates that a LEFT SHIFT is Present. Ketones Test strip Ql (U)Ord ered By: Anastacio Lloyd on 01-14-2025 Ketones Ql (U) Negative Negative [facility] L506.1001on 01-14-2025 Vitamin D 25-OH 66.2 ng/mL Normal 30-100 [facility] Comment on above: Order Comment: Order Date: 05/27/24 Order Info: [id number] - PTHIN Result Comment: Nona min D Status Deficiency: <20 ng/mL (50nmol/L) Insufficiency: 20-30 ng/mL (50-75 nmol/L) Sufficiency: 30-100 ng/mL (75-250 nmol/L) Toxicity: >100 ng/mL (>250 nmol/L) Performed By: #### L 500.4100, L506.1000, L100.0100, L509.1000, L500.4050 #### [facility] [address] [place] [address], [id number] LDL calc ser/plasOrdered By: Anastacio Lloyd on 01-14-2025 Cholesterol in LDL [Mass/Vol] 62 mg/dL [facility] Comment on above: Ihpmvwmhuw=634-538 m g/dL & Higher Lgup=328 mg/dL or greater LDL Cholesterol, Calculated 62 mg/dL [facility] Comment on above: Qqffbwfrws=378-620 m g/dL & Higher Ctml=675 mg/dL or greater Laboratory - Chemistry and C hemistry - challengeOrdered By: Anastacio Lloyd on 01-14-2025 AST [Catalytic activity/Vol] 34 U/L High <32 [facility] Lipid Profileon 01-14-2025 CHOL:HDL 2.58 Normal [facility] Comment on above: Order Comment: Order Date: 09/17/24Order Info: [id number] - CMPOrder Info: [id number] - LIPID Performed By: #### L 509.1000, L500.4100, L100.0100, L500.4050 ####[facility] [address] [place], [address] Cholesterol [Mass/Vol] 133 mg/dL Normal <=200 [facility] Comment on above: Order Comment: Order Date: 09/17/24Order Info: 07 - CMPOrder Info: [id number] - LIPID Result Comment: Chol esterol level, Desirable <200 mg/dL Borderline high cholesterol 200-239 mg/dL High cholesterol >=240 mg/dL Recommendations of the NCEP Adult Treatment Panel for the following risk-cutoff thresholds for the [place] population. Performed By: #### L 509.1000, L500.4100, L100.0100, L500.4050 ####[facility] [address] [place], [address] Cholesterol in HDL [Mass/Vol] 52 mg/dL Normal [facility] Comment on above: Order Comment: Order Date: 09/17/24Order Info: [id number] - CMPOrder Info: [id number] - LIPID Result Comment: Michell onal Cholesterol Education Program (NCEP) guidelines: <40 mg/dL: Low HDL-cholesterol (major risk factor for CHD) >= 60 mg/dL: High HDL-cholesterol (negative risk factor for CHD) HDL-cholesterol is affected by a number of factors, e.g. smoking, exercise, hormones, sex and age. Performed By: #### L 509.1000, L500.4100, L100.0100, L500.4050 ####[facility] [address] [place], [address] Cholesterol in LDL [Mass/Vol] 62 mg/dL Normal [facility] Comment on above: Order Comment: Order Date: 09/17/24Order Info: [id number] - CMPOrder Info: [id number] - LIPID Result Comment: Bord nfrfpe=975-473 mg/dL Higher Bkmz=050 mg/dL or greater Performed By: #### L 509.1000, L500.4100, L100.0100, L500.4050 ####[facility] [address] [place], [address] Cholesterol in VLDL [Mass/Vol] 19 mg/dL Normal 5-40 [facility] Comment on above: Order Comment: Order Date: 09/17/24Order Info: [id number] - CMPOrder Info: [id number] - LIPID Performed By: #### L 509.1000, L500.4100, L100.0100, L500.4050 ####[facility] [address] [place], [address] Triglyceride [Mass/Vol] 97 mg/dL Normal [facility] Comment on above: Order Comment: Order Date: 09/17/24Order Info: [id number] - CMPOrder Info: [id number] - LIPID Result Comment: The drugs N-Acetylcysteine and Metamizole may falsely depress this assay. Normal range: <150 mg/dL Borderline High: 150-199 mg/dL High: 200-499 mg/dL Very High: >500 mg/dL Performed By: #### L 509.1000, L500.4100, L100.0100, L500.4050 ####[facility] [address] [place], [address] Lymphocytes Auto (Unsp spec) [#/Vol]Ordered By: Anastacio Lloyd on 01-14-2025 Lymphocytes (Bld) [#/Vol] 1.22 10*3/uL 0.83-4.51 [facility] Lymphocytes/100 WBC Auto (Un sp spec)Ordered By: Anastacio Lloyd on 01-14-2025 Lymphocytes/100 WBC (Bld) 25.0 % 19-41 [facility] MCV (mean corpuscular volume ) determinationOrdered By: Anastacio Lloyd on 01-14-2025 MCV (RBC) [Entitic vol] 95.7 fL 81-99 [facility] Mean corpuscular hemoglobin (MCH) determinationOrdered By: Anastacio Lloyd on 01-14-2025 MCH (RBC) [Entitic mass] 30.3 pg 27.0-32.0 [facility] Mean corpuscular hemoglobin concentration (MCHC) determinationOrdered By: Anastacio Lloyd on 01-14-2025 MCHC (RBC) [Mass/Vol] 31.7 g/dL Low 32-36 [facility] Mean platelet volume determi nationOrdered By: Anastacio Lloyd on 01-14-2025 Platelet mean volume (Bld) [Entitic vol] 9.5 fL 6.2-12.0 [facility] Microscopic analysis of urin e for red blood cells (RBC)Ordered By: Anastacio Lloyd on 01-14-2025 Microscopic analysis of urine for red blood cells (RBC) 0 SEEN /hpf 0-5 [facility] Urine RBC 0 SEEN /hpf 0-5 [facility] Monocyte percentageOrdered B y: Anastacio Lloyd on 01-14-2025 Monocytes/100 WBC (Bld) 11.7 % High 0-10 [facility] Mucus LM Ql (Urine sed)Order ed By: Anastacio Lloyd on 01-14-2025 Mucus Ql (Urine sed) 0 SEEN /hpf [facility] Neutrophil percentageOrdered By: Anastacio Lloyd on 01-14-2025 Neutrophils/100 WBC (Bld) 57.6 % 47-70 [facility] Nitrite Test strip Ql (U)Ord ered By: Anastacio Lloyd on 01-14-2025 Nitrite Ql (U) Positive High Negative [facility] Nucleated red blood cell per centageOrdered By: Anastacio Lloyd on 01-14-2025 Nucleated RBC/100 WBC (Bld) [Ratio] 0 % 0- [facility] PTH intactOrdered By: Anastacio ribera on 01-14-2025 Parathyroid Hormone (Intact) 31 pg/mL [facility] PTHINon 01-14-2025 PTH 31 pg/mL Normal [facility] Comment on above: Order Comment: Order Date: 09/17/24Order Info: [id number] - PTHIN Performed By: #### L 509.1000, L500.4100, L100.0100, L500.4050 ####[facility] [address] [place], [address] Platelet countOrdered By: Nicky Lloyd on 01-14-2025 Platelets (Bld) [#/Vol] 299 10*3/uL 150-450 [facility] Potassium (Unsp spec) [Mass/ Vol]Ordered By: Anastacio Lloyd on 01-14-2025 Potassium [Moles/Vol] 4.6 mmol/L 3.3-5.1 [facility] Potassium measurement (mass/ volume)Ordered By: Anastacio Lloyd on 01-14-2025 Potassium (Unsp spec) [Mass/Vol] 4.6 mmol/L 3.3-5.1 [facility] Protein Test strip Ql (U)Ord ered By: Anastacio Lloyd on 01-14-2025 Protein Ql (U) Negative Negative [facility] Protein+Creatinine Ratio,Uri neon 01-14-2025 PROT:CRE RATIO 278 mg/g CRE High 0-200 [facility] Comment on above: Performed By: #### L 501.0900, L400.0001 ####[facility] [address] [place], [address] Protein (U) [Mass/Vol] 11.8 mg/dL Normal 0.0-12.0 [facility] Comment on above: Performed By: #### L 501.0900, L400.0001 ####[facility] [address] [place], [address] UR CREAT 42.40 mg/dL Normal 28-217 [facility] Comment on above: Performed By: #### L 501.0900, L400.0001 ####[facility] [address] [place], [address] Protein/Creatinine (U) [Mass ratio]Ordered By: Anastacio Lloyd on 01-14-2025 Urine Protein/Creatinine Ratio 278 mg/g CRE High 0-200 [facility] RBC Auto (Bld) [#/Vol]Ordere d By: Anastacio Lloyd on 01-14-2025 RBC (Bld) [#/Vol] 3.99 10*6/uL Low 4.2-5.4 [facility] Random urine creatinine filomena urement (mass/volume)Ordered By: Anastacio Lloyd on 01-14-2025 Creatinine Unsp time (U) [Mass/Vol] 42.40 mg/dL 28-217 [facility] Screening total cholesterol/ high density lipoprotein (HDL) cholesterol ratioOrdered By: Anastacio Lloyd on 01-14-2025 Cholesterol.total/Chol esterol in HDL [Mass ratio] 2.58 {ratio} [facility] Serum creatinine measurement (mass/volume)Ordered By: Anastacio Lloyd on 01-14-2025 Creatinine [Mass/Vol] 1.21 mg/dL High 0.70-1.20 [facility] Serum globulin measurementOr dered By: Anastacio Lloyd on 01-14-2025 Globulin (S) [Mass/Vol] 2.9 g/dL 2.2-4.2 [facility] Serum glucose measurement (m ass/volume)Ordered By: Anastacio Lloyd on 01-14-2025 Glucose [Mass/Vol] 82 mg/dL 70-99 [facility] Serum or plasma alanine purcell otransferase (ALT) measurementOrdered By: Anastacio Lloyd on 01-14-2025 ALT [Catalytic activity/Vol] 35 U/L <35 [facility] Serum or plasma albumin filomena urement (mass/volume)Ordered By: Anastacio Lloyd on 01-14-2025 Albumin [Mass/Vol] 4.3 g/dL 3.4-4.8 [facility] Serum or plasma albumin/glob ulin mass ratioOrdered By: Anastacio Lloyd on 01-14-2025 Albumin/Globulin [Mass ratio] 1.5 {ratio} 0.9-2.4 [facility] Serum or plasma alkaline bienvenido sphatase measurementOrdered By: Anastacio Lloyd on 01-14-2025 ALP [Catalytic activity/Vol] 87 U/L 35-104 [facility] Serum or plasma calcium filomena urement (mass/volume)Ordered By: Anastacio Lloyd on 01-14-2025 Calcium [Mass/Vol] 10.3 mg/dL 7.6-11.0 [facility] Serum or plasma cholesterol in HDL measurement (mass/volume)Ordered By: Anastacio Lloyd on 01-14-2025 Cholesterol in HDL [Mass/Vol] 52 mg/dL >40 [facility] Comment on above: National Cholesterol Education Program (NCEP) guidelines:<40 mg/dL: Low HDL-cholesterol (major risk factor for CHD)>= 60 mg/dL: High HDL-cholesterol (negative risk factor for CHD)HDL-cholesterol is affected by a number of factors, e.g. smoking, exercise, hormones, sex and age. Serum or plasma cholesterol measurement (mass/volume)Ordered By: Anastacio Lloyd on 01-14-2025 Cholesterol [Mass/Vol] 133 mg/dL <201 [facility] Comment on above: Cholesterol level, D esirable <200 mg/dLBorderline high cholesterol 200-239 mg/dLHigh cholesterol >=240 mg/dLRecommendations of the NCEP Adult Treatment Panel for the following risk-cutoff thresholds for the [place] population. Serum or plasma urea nitroge n measurement (mass/volume)Ordered By: Anastacio Lloyd on 01-14-2025 Urea nitrogen [Mass/Vol] 26 mg/dL High 4-19 [facility] Sodium levelOrdered By: Anastacio Lloyd on 01-14-2025 Sodium [Moles/Vol] 141 mmol/L 133-145 [facility] Squamous epithelial cells de tection in urine sediment by light microscopyOrdered By: Anastacio Lloyd on 01-14-2025 Epithelial cells.squamous LM Ql (Urine sed) 0-5 SEEN /hpf 5-10 [facility] Total proteinOrdered By: Warner Lloyd on 01-14-2025 Protein [Mass/Vol] 7.3 g/dL 5.9-8.4 [facility] Triglycerides measurementOrd ered By: Anastacio Lloyd on 01-14-2025 Triglyceride [Mass/Vol] 97 mg/dL <199 [facility] Comment on above: The drugs N-Acetylcy steine and Metamizole may falsely depress this assay. Normal range: <150 mg/dLBorderline High: 150-199 mg/dLHigh: 200-499 mg/dLVery High: >500 mg/dL Urinalysis, Completeon 01-14 BACTERIA 3+ /hpf Normal None Seen [facility] Comment on above: Order Comment: CLEAN CATCH Performed By: #### L 501.0900, L400.0001 ####[facility] [address] [place], [address] EPI,SQUAMOUS 0-5 SEEN Normal 5-10 [facility] Comment on above: Order Comment: CLEAN CATCH Performed By: #### L 501.0900, L400.0001 ####[facility] [address] [place], [address] RBC 0 SEEN Normal 0-5 [facility] Comment on above: Order Comment: CLEAN CATCH Performed By: #### L 501.0900, L400.0001 ####[facility] [address] [place], [address] WBC 0-5 SEEN Normal 0-5 [facility] Comment on above: Order Comment: CLEAN CATCH Performed By: #### L 501.0900, L400.0001 ####[facility] [address] [place], [address] Mucus Ql (Urine sed) 0 SEEN Normal [facility] Comment on above: Order Comment: CLEAN CATCH Performed By: #### L 501.0900, L400.0001 ####[facility] [address] [place], [address] Urine blood detectionOrdered By: Anastacio Lloyd on 01-14-2025 Urine Occult Blood 25 /ul High Negative [facility] Urine clarityOrdered By: Warner Lloyd on 01-14-2025 Clarity (U) Sl. Cloudy Clear [facility] Urine color determinationOrd ered By: Anastacio Lloyd on 01-14-2025 Color (U) Yellow Yellow [facility] Urine glucose detectionOrder ed By: Anastacio Lloyd on 01-14-2025 Glucose Ql (U) Normal mg/dl Normal [facility] Urine leukocyte esterase det ection by dipstickOrdered By: Anastacio Lloyd on 01-14-2025 Leukocyte esterase Test strip Ql (U) 100 /ul High Negative [facility] Urine pHOrdered By: Anastacio ayala on 01-14-2025 pH (U) 5.0 [pH] 5.0 - 8.0 [facility] Urine protein measurement (m ass/volume)Ordered By: Anastacio Lloyd on 01-14-2025 Protein (U) [Mass/Vol] 11.8 mg/dL 0.0-12.0 [facility] Urine protein/creatinine mas s ratioOrdered By: Anastacio Lloyd on 01-14-2025 Protein/Creatinine (U) [Mass ratio] 278 mg/g CRE High 0-200 [facility] Urine sediment bacteria coun t by microscopy (number/high power field)Ordered By: Anastacio Lloyd on 01-14-2025 Bacteria LM.HPF (Urine sed) [#/Area] 3 /[HPF] None Seen [facility] Urine specific gravity measu rementOrdered By: Anastacio Lloyd on 01-14-2025 Specific gravity (U) [Rel density] 1.020 1.002-1.030 [facility] Urine urobilinogen measureme ntOrdered By: Anastacio Lloyd on 01-14-2025 Urobilinogen Ql (U) Normal mg/dl Normal [facility] Urobilinogen Ql (U)Ordered B y: Anastacio Lloyd on 01-14-2025 Urine Urobilinogen Normal mg/dl Normal [facility] Vitamin D, 25-hydroxyOrdered By: Anastacio Lloyd on 01-14-2025 Vitamin D 25-Hydroxy 66.2 ng/mL 30-100 [facility] Comment on above: Vitamin D StatusDefi ciency: <20 ng/mL (50nmol/L)Insufficiency: 20-30 ng/mL (50-75 nmol/L)Sufficiency: 30-100 ng/mL (75-250 nmol/L)Toxicity: >100 ng/mL (>250 nmol/L) White blood cell (WBC) count Ordered By: Anastacio Lloyd on 01-14-2025 WBC (Bld) [#/Vol] 4.9 10*3/uL 4.4-11.0 [facility] White blood cell countOrdere d By: Anastacio Lloyd on 01-14-2025 Urine WBC 0-5 SEEN /hpf 0-5 [facility] White blood cell count 0-5 SEEN /hpf 0-5 [facility] HIP, UNI W/ Pelvis 2-3 Views on 12-29-2024 HIP, UNI W/ Pelvis 2-3 Views [facility] [address] [place], [place] [address] HIP, UNI W/ Pelvis 2-3 Views MR#: [id number] Acct: [id number] Name: PILAR PERSAUD Rep #: [id number] : 1955 F 69 From: Minor Perez MD PCP: Dr. Anastacio Lloyd MD Status: DEP AMB Study: HIP, UNI W/ Pelvis 2-3 Views Date of Exam: Exam# [id number] Ordering Dr: Yadiel Quinn DO EXAM: XR Left Hip With Pelvis When Performed, 2 or 3 Views CLINICAL INDICATION: TECHNIQUE: Two or three views of the left hip with pelvis when performed. COMPARISON: No relevant prior studies available. FINDINGS: BONES/JOINTS: Total hip replacement. Intact hardware. No acute fracture. No dislocation. SOFT TISSUES: Soft tissue emphysema and swelling. RAD/HIP, UNI W/ Pelvis 2-3 Views IMPRESSION: Status post total hip replacement in anatomic position. Reading [facility] CC: Dr. Anastacio Lloyd MD; Dr. Yadiel Quinn DO Global Director Air And Climate Change: Signed Normal [facility] Orthopedic Visit Reporton Orthopedic Visit Report [facility] [address] [place] [address] [address] [place] [address] OFFICE VISIT Date of Service: 12/29/24 MR#: [id number] Acct: [id number] Name: PILAR PERSAUD Rep #: [id number] : 1955 Provider: Dr. Yadiel sykes DO Age/Sex: 69/F Location: [facility] [place] Status: Signed Intake Vital Signs 08/13/24 10:50 11/18/24 06:33 Height 5 ft 7 in 5 ft 7 in Intake Visit Reasons: left hip Chief Complaint: left hip Allergies green tea Allergy (Verified 12/01/24 10:30) PT UNSURE OF REACTION orange juice Allergy (Verified 12/01/24 10:30) Unknown nickel Adverse Reaction (Severe, Verified 12/01/24 10:30) Rash Medications ???Medication ???Instructions ???Recorded ???Confirmed ???Type cholecalciferol (vitamin D3) 50 50 mcg PO DAILY 09/22/21 12/29/24 History mcg (2,000 unit) capsule oxaprozin 600 mg tablet 600 mg PO BID 09/22/21 12/29/24 Hi story Held on 11/18/24. Instructions: May resume after completion of blood thinner if needed cyclobenzaprine 10 mg tablet 10 mg PO HS 11/11/21 12/29/24 Hist ory oxymetazoline 0.05 % nasal spray 1 spray intranasal ONCE PRN DRY 12/29/24 History (12 Hour Nasal Relief [place]) NOSE aspirin 81 mg tablet 81 mg PO DAILY 11/30/21 12/29/24 H istory Held on 11/18/24. Instructions: Resume on 11/21/24. atorvastatin 40 mg tablet 40 mg PO QHS 11/30/21 12/29/24 His tory famotidine 20 mg tablet 20 mg PO DAILY #90 tabs 07/24/22 0 12/29/24 Rx estradiol 0.01% (0.1 mg/gram) See Rx Instructions vaginal 12/29/24 Rx vaginal cream .COMPLEX #42.5 grams oxyquinoline 0.025 %-sodium lauryl See Rx Instructions vaginal 07/2912/29/24 Rx sulfate 0.01 % vaginal gel .COMPLEX #113.4 grams (Trimo-Wallis Jelly) denosumab 60 mg/mL subcutaneous 60 mg subcut [id number] 08/25/24 History syringe (Prolia) acetaminophen 500 mg tablet 1,000 mg (2 x 500 mg) PO Q6H #100 11/18/24 12/29/24 Rx tabs Have you fallen in the past year?: No PFSH Medical History Post-menopausal Vertigo PONV (postoperative nausea and vomiting) Gastric reflux Shortness of breath on exertion Former smoker Heart murmur Marijuana use Restless legs Heartburn Hiatal hernia Wears glasses Alcohol use High cholesterol Back pain Smoker Chronic cough Leg cramps History of irregular heartbeat Acid reflux Constipation Arthritis Dysphagia injection in hip Surgical History H/O total hip arthroplasty S/P hernia repair History of endoscopy History of colonoscopy History of appendectomy History of cataract surgery History of tubal ligation Family History Mother Diabetes Heart disease Hypertension High cholesterol Sister Diabetes Heart disease High cholesterol Hypertension Father Diabetes Daughter Thyroid disorder Social History household members: spouse and other details: grandson number of children: 2 current occupational status: retired history of recent travel: No Smoking Status: Former smoker alcohol intake: current alcohol intake frequency: a few times a month details: socially substance use type: does not use what type of physical activity do you participate in: none seatbelt use: always do you feel safe at home: Yes additional social history: - Isaak SANCHES left hip Details: This documentation accurately reflects the service provided and the decisions made by me, Dr. Yadiel Quinn, DO 12/29/24 0759. Part of today???s visit was documented by Pam FUENTES, acting as scribe. PILAR PERSAUD is a 69 year old F here today for 6-week follow-up left total hip arthroplasty date of surgery 11/18/2024. Patient is doing well with minimal pain. She continues to take Tylenol for her pain and has finished her blood thinner. She has completed her physical therapy. She is ambulating with a cane. She does note that since surgery she only gets a few hours of sleep then she walks up and her feet are swollen and red but if she is wearing her compression stocking she doesn't have it. When she gets the swelling in her feet when she removes her stockings so she prefers to wear them. Ortho Exam General General: Yes no acute distress Neurologic: Yes alert and Yes oriented x3 Psychologic: Yes reasonable and appropriate Left Hip Skin/Wound: Yes healed, No Ecchymosis and No Erythema Hip: Absent eccymosis or erythema HIP: Incision incision healed well there is no sign of infection or DVT she is neurovascular intact left lower extremity she has no calf tenderness negative Homans. Supplemental Info 12/07 (more content not included)... Normal [facility] PT D/C Summary (1)on 025 PT D/C Summary (1) [facility] [address] [place] [address] / REHABILITATION SERVICES DISCHARGE SUMMARY MR#: [id number] Acct: [id number] Name: PILAR PERSAUD Rep #: [id number] : 1955 69 From: Magdi Chance PT, Cert. T, OCS Referring Dr.: Dr. Yadiel Quinn DO Status: R EG RCR Insurance: MEDICARE PART A B ANTH Discharge Summary D/C summary: It has been my pleasure to treat PILAR PERSAUD referred by Dr. Yadiel Quinn DO, with the diagnosis of UNILATERAL PRIMARY OSTEOARTHRITIS LEFT HIP for a total of 8 visit(s). Discharge Date: 12/18/24 Please see the following information for a summary of their discharge status. Subjective Subjective: Doing goog ..see Dr 2 weeks ago Pain Right Hip: Pain Intensity (Out of 10): 0 Overall Improvement % Improvement: 95 Objective Objective/Function: POSTURE: mild forward posture hips/knees slightly flexed NEURO: denies paresthesia/tingling SKIN: incision well approximate gabino intact posterior lateral EDEMA: mild edema thigh GAIT: ambulates with cane slight decrease stance time AROM: supine knee flexion 0-130 degrees ,hip flexion 90 degrees ,hip abduction 35 degrees ,hip extension 10 BALANCE: GOOD- MMT: hip flexion,hip 29.1 extension ,12.2 ,hip abd 0 ,hamstrings left20.9 ,quads 29.9 STAIRS : one step at time with rail Goals Goal 1:: Patient to be I with HEP for hip Goal Progress: Goal Met Goal 2:: Patient to improve peak force hip by 10 # to improve gait Goal Progress: Goal Met Goal 3:: Patient to improve gait with/without cane with normal gait pattern Goal Progress: Goal Met Goal 4:: Patient to improve LFES score by 10 points to improve QOL Goal Progress: Goal Met Goal 5:: Patient to improve TUG score under 12 seconds to improve safe gait. Goal Progress: Goal Met Goal 6:: Patient to improve WOMAC by 10 points to improve QOL Goal Progress: Goal Met Plan Plan: D/C D/C Information Discharge Comments: HEP d/c sentence: If there are questions or concerns regarding this patient's physical therapy, please feel free to call me at [phone]. Thank you for the referral of this patient. Sincerely, Magdi Chance, PT, Cert MDT, OCS Balance/Gait/Functional tests Balance/Special Test Scores Lower Extremity Functional Score: 48 TUG Test Time Seconds: 12.7 Tug Test: <20 sec.=mostly independent WOMAC Total Score: 77 WOMAC Percentage: 16.3100 Improvement % Improvement: 95 12/18/24 1459 CC: Dr. Anastacio Lolyd MD; Dr. Yadiel Quinn DO JLJaswinder Signed Normal [facility] Orthopedic Visit Reporton Orthopedic Visit Report [facility] [address] [place] [address] OFFICE VISIT Date of Service: 12/01/24 MR#: [id number] Acct: [id number] Name: PILAR PERSAUD Rep #: [id number] : 1955 Provider: Dr. Yadiel sykes DO Age/Sex: 69/F Location: [facility] [place].[facility] Status: Signed Intake Vital Signs 08/13/24 10:50 11/18/24 06:33 Height 5 ft 7 in 5 ft 7 in Intake Visit Reasons: left hip Chief Complaint: left hip Is patient in pain?: Yes Allergies green tea Allergy (Verified 12/01/24 10:30) PT UNSURE OF REACTION orange juice Allergy (Verified 12/01/24 10:30) Unknown nickel Adverse Reaction (Severe, Verified 12/01/24 10:30) Rash Medications ???Medication ???Instructions ???Recorded ???Confirmed ???Type cholecalciferol (vitamin D3) 50 50 mcg PO DAILY 09/22/21 12/01/24 History mcg (2,000 unit) capsule oxaprozin 600 mg tablet 600 mg PO BID 09/22/21 12/01/24 History cyclobenzaprine 10 mg tablet 10 mg PO HS 11/11/21 12/01/24 History oxymetazoline 0.05 % nasal spray 1 spray intranasal ONCE PRN DRY 11/11/21 12/01/24 History (12 Hour Nasal Relief [place]) NOSE aspirin 81 mg tablet 81 mg PO DAILY 11/30/21 12/01/24 History atorvastatin 40 mg tablet 40 mg PO QHS 11/30/21 12/01/24 History famotidine 20 mg tablet 20 mg PO DAILY #90 tabs 07/24/22 12/01/24 Rx estradiol 0.01% (0.1 mg/gram) See Rx Instructions vaginal 02/13/23 12/01/24 Rx vaginal cream .COMPLEX #42.5 grams oxyquinoline 0.025 %-sodium lauryl See Rx Instructions vaginal 08/13/24 12/01/24 Rx sulfate 0.01 % vaginal gel .COMPLEX #113.4 grams (Trimo-Wallis Jelly) denosumab 60 mg/mL subcutaneous 60 mg subcut [id number] 08/25/24 12/01/24 History syringe (Prolia) acetaminophen 500 mg tablet 1,000 mg (2 x 500 mg) PO Q6H #100 11/18/24 12/01/24 Rx tabs apixaban 2.5 mg tablet (Eliquis) 2.5 mg PO BID #42 tabs 11/18/24 12/01/24 Rx Have you fallen in the past year?: No PFSH Medical History (Updated 12/01/24 @ 10:[address] Yadiel Quinn, DO) Post-menopausal Vertigo PONV (postoperative nausea and vomiting) Gastric reflux Shortness of breath on exertion Former smoker Heart murmur Marijuana use Restless legs Heartburn Hiatal hernia Wears glasses Alcohol use High cholesterol Back pain Smoker Chronic cough Leg cramps History of irregular heartbeat Acid reflux Constipation Arthritis Dysphagia injection in hip Surgical History (Updated 12/01/24 @ 10:31 by Katherine Abel) H/O total hip arthroplasty S/P hernia repair History of endoscopy History of colonoscopy History of appendectomy History of cataract surgery History of tubal ligation Family History Mother Diabetes Heart disease Hypertension High cholesterol Sister Diabetes Heart disease High cholesterol Hypertension Father Diabetes Daughter Thyroid disorder Social History household members: spouse and other details: grandson number of children: 2 current occupational status: retired history of recent travel: No Smoking Status: Former smoker alcohol intake: current alcohol intake frequency: a few times a month details: socially substance use type: does not use what type of physical activity do you participate in: none seatbelt use: always do you feel safe at home: Yes additional social history: - Isaak SANCHES left hip Details: This documentation accurately reflects the service provided and the decisions made by me, Dr. Yadiel Quinn, DO 12/01/24 0806. Part of today???s visit was documented by [ ], acting as scribe. PILAR PERSAUD is a 69 year old F here today for s/p Left total hip arthroplasty dos 11/18/24. Patient notes that she is improving. Patient has decreased the amount she is taking her pain mediations and is only taking the tylenol. Patient is doing physical therapy which is going well. She continues to take her blood thinners and continues to wear her compression stockings. Patients incision is healing with no concerns. Ortho Exam General General: Yes no acute distress Neurologic: Yes alert and Yes oriented x3 Psychologic: Yes reasonable and appropriate Left Hip Skin/Wound: Yes suture/gabino removed, No Ecchymosis, No soft tissue swelling and No Erythema Hip: Absent eccymosis, soft tissue swelling or erythema HIP: Incision well-approximated no signs of infection or DVT neurovascular intact left lower extremity Gabino were removed today without concern Supplemental Info 11/18/2024 left total hip arthroplasty: Dr. Quinn 09/01/2024 MRI lumbar spine: Impression Multilevel degenerative disc disease 12/06/2022 x-ray lumbar spine: Degenerative disc disease most significant at L4-L5 L5-S1 but also L3- (more content not included)... Normal [facility] Inital Evaluation (1) - PTon 11-21-2024 Inital Evaluation (1) - PT [facility] Physical [facility] [address] [place] [address] / REHABILITATION SERVICES INITIAL EVALUATION MR#: [id number] Acct: [id number] Name: PILAR PERSAUD Rep #: [id number] : 1955 69 From: Magdi Chance PT, Cert. MD Skinner, OCS Referring Dr.: Dr. Yadiel Quinn DO Status: R EG RCR Insurance: MEDICARE PART A B ANTHEM Patient's Visit Information Visit Information Visit Information: PILAR PERSAUD is a 69 year old F referred to Physical Therapy by Dr. Yadiel Quinn DO with a diagnosis of UNILATERAL PRIMARY OSTEOARTHRITIS LEFT HIP. Date of Evaluation: 11/21/24 Physical Therapist: Magdi Chance, PT, Cert T, OCS Visit Plan Frequency: 2x /Week Duration: 6 Weeks Plan: S/P ROBERT POSTERIOR LATERAL 09/18 WITH HIP PRECAUTIONS WBAT LLE FWW PT INTERVENTIONS ROM HIP , STRENGTHENING LEFT QUADS/HAMS/HIP ,GAIT /BALANCE TRAINING ,AND FUNCTIONAL STRENGTHENING Subjective Subjective: This 69 y/o female presents to physical therapy with left ROBERT on 11/18/[address] Quinn at [facility] . Patient was d/c to 11/18 with WBAT left with fww with posterior lateral hip precaution. Patient RTD 12/01/24. Patient has had hip pain many years x-rays showed severe DJD hip . Patient had prior Aquatic PT. Patient has min pain. Medication pain medication oxycodone. Patient denies paresthesia/tingling . Patient sleeping good. Patient has some edema. Patient lives 2 story with 3 steps with rail. Patient has tub/shower set up. Patient is sponge bathing and assist with dressing . Spouse does cooking Patient condition affects QOL and function/gait. Patient goals to walk normal. SOCIAL: VOCATION: retired Pain Right Hip: Pain Intensity (Out of 10): 1 Pain Intensity Range: 10 Objective Objective: POSTURE: mild forward posture hips/knees slightly flexed NEURO: denies paresthesia/tingling SKIN: incision well approximate gabino intact posterior lateral EDEMA: mild edema thigh GAIT: ambulates with fww with WBAT LLE slow isauro with decrease stance time AROM: supine knee flexion 5-125 degrees ,hip flexion 70 degrees ,hip abduction 25 degrees ,hip extension 0 BALANCE: fair with fww MMT: hip flexion,hip extension ,0 ,hip abd 0 ,hamstrings left 10.9 ,quads 8.9 STAIRS : one step at time with rail Balance/Special Test Scores Lower Extremity Functional Score: 11 TUG Test Time Seconds: 32.89 WOMAC Total Score: 77 WOMAC Percentatge: 16.3100 Goals Goal 1:: Patient to be I with HEP for hip Goal Time Frame: 4-6 Weeks Goal 2:: Patient to improve peak force hip by 10 # to improve gait Goal Time Frame: 4-6 Weeks Goal 3:: Patient to improve gait with/without cane with normal gait pattern Goal Time Frame: 4-6 Weeks Goal 4:: Patient to improve LFES score by 10 points to improve QOL Goal Time Frame: 4-6 Weeks Goal 5:: Patient to improve TUG score under 12 seconds to improve safe gait. Goal Time Frame: 4-6 Weeks Goal 6:: Patient to improve WOMAC by 10 points to improve QOL Goal Time Frame: 4-6 Weeks Rehabilitation Potential Physical Therapy Diagnosis: Patient underwent s/p ROBERT left 09/18 with decrease gait ,ROM ,strength ,stairs and hip precautions thus benefit from skilled PT Rehabilitation Potential: Good Anticipated Interventions Patient/Client Instruction: Educate patient on: Condition and Plan of Care For the Purpose of:: To decrease pain, To increase ROM, To improve muscle performance and motor function, To increase tolerance to activity/condition/position , To improve performance and independence with ADL's, To improve ability of physical actions for home/community/work/leisure , To improve gait and locomotor functions, To improve health of tissue, To decrease soft tissue restriction, To increase flexibility/ROM, To improve endurance and To improve balance Therapeutic Exercise to Include: Strength training, Endurance training, Balance training, Gait and locomotor training and Active ROM Comment: QUADS/HAMS/HIP S/P ROBERT LEFT For the Purpose of:: To decrease pain, To increase ROM, To improve muscle performance and motor function, To improve ability to perform ADL's, To increase tolerance to activity/condition/position , To improve ability of physical actions for home/community/work/leisure , To improve gait and locomotor functions, To improve health of tissue, To increase flexibility/ROM, To improve balance, To improve safety with gait, To improve safety, To improve health and function and To improve tolerance to ADL's Text: Thank you for the opportunity to evaluate your patient. For Medicare and Medicare HMO plans, please review the plan of care and approve it. It will need to be FAXED BACK to us at [phone] for Medicare purposes. For Medicare only, by signing this I certify the plan of care. Please let me know if there are questions or concerns re (more content not included)... Normal [facility] [id number] 11-19-2024 MR/POSTOPAN2 [facility] Medical Records Department [address] [place] [address] Anesthesia Postop Eval II 11/19/24 0708 MR#: [id number] Acct: [id number] Name: PILAR PERSAUD Rep #: [id number] : 1955 69 From: George Haskins MD PCP: Dr. Anastacio Lloyd MD Status:[facility] Y Race: C Location: [facility] Anesthesia Postop Eval I Sum Postop Eval Completion status Anesthesia document: Postop Eval 1 completed: Yes Anesthesia Postop Eval I Summary Anesthesia Postop Eval I Summary: Anesthesia Postop Eval I: Assessment Summary Airway patent Yes 11/18/24 10:16 REGULATORY AFFAIRS MANAGER.JCLI Spontaneous unlabored Yes 11/18/24 10:16 REGULATORY AFFAIRS MANAGER.JCLI respirations Mental status Asleep 11/18/24 10:16 REGULATORY AFFAIRS MANAGER.JCLI nausea No 11/18/24 10:16 REGULATORY AFFAIRS MANAGER.JCLI Vomiting No 11/18/24 10:16 REGULATORY AFFAIRS MANAGER.JCLI Anesthesia Postop Eval I: Fluid Summary Crystalloid volume administer 2,000 11/18/24 10:16 REGULATORY AFFAIRS MANAGER.JCLI (ml) Colloids volume administered ( ml) Blood Product volume administered (ml) Total IV fluid infused 2,000 11/18/24 10:16 REGULATORY AFFAIRS MANAGER.JCLI Anesthesia Postop Eval I: Summary Notes Anesthesia Complication No 11/18/24 10:16 REGULATORY AFFAIRS MANAGER.JCLI Anesthesia Complication Comment: Post-operative progress note Anesthesia: Postop Eval II Evaluation Mental status: Awake and Calm Pain Level: 1 nausea: No Vomiting: No Complications Anesthesia Complication: No 11/19/24 0709 Date George Rebollar Signature: Date CC: Signed Normal [facility] Bedside Glucoseon 11-18-2024 FINGERSTICK GLU 67 mg/dL Low 74-106 [facility] Comment on above: Result Comment: JOSE A HOLLY OF PATIENT CARE PER NURSING PROTOCOL Performed By: #### L 501.080 #### [facility] Laboratory [address] [place], [address] Decalcification bone/plaqueo n 11-18-2024 Decalcification bone/plaque Patient Age/Sex Location Account Attending Physician PILAR PERSAUD 69/F [facility] [id number] Dr. Yadiel Quinn, DO Specimen: [id number] Received: 11/18/24 Status: CHARITO Beck Num: [id number] Spec Type: FEM HEAD Subm Dr: Dr. Yadiel Quinn, DO HEADER OPERATION: Left total hip replacement robotic arm assist PRE-OP DIAGNOSIS: Osteoarthritis of left hip TISSUE SUBMITTED: Left femoral head MICROSCOPIC DIAGNOSIS Left hip bone and soft tissue, total hip replacement/resection: Femoral head with severe degenerative osteoarthritic changes. Fragments of fibroconnective tissue and reactive synovial tissue. SJ: 11/21/2024 MICROSCOPIC DESCRIPTION Slides are reviewed. GROSS DESCRIPTION Received is one container labeled with the patient's name and designated bone and soft tissue left hip. The specimen consists of a pate femoral head with portion of femoral neck. The femoral head measures 5.0 x 5.0 x 4.5 cm and the femoral neck measures 1.0 cm in length. The articular surface displays prominent osteophyte formation, eburnation and bone erosion. Also present in the specimen container are multiple irregular fragments of bone reamings and pink-yellow soft tissue measuring in aggregate 7.0 x 6.0 x 2.0cm. Also present in the container are detached piece of bone measuring 2.0 x 1.5 x 1.0cm. Also present attached to the femoral head are two pieces of soft tissue measuring in aggregate 2.5 x 1.5 x 0.3cm. A focal yellowish area is also noted on the surface of the femoral head measuring 2.0 x 2.0cm. Manufacturing Plant Technician sections are submitted in three cassettes as follows: 1 - soft tissue, entirely submitted, 2 3- femoral head after decalcification. / MISA. 11/18/2024 TC:5 CPT: 39572, 18498 Patient Age/Sex Location Account Attending Physician PILAR PERSAUD 69/F [facility] [id number] Dr. Yadiel Quinn, DO Signed (signature on file) Dr. Epifanio Bennett MD 11/21/24 1440 Normal [facility] Comment on above: Performed By: #### L 500.4100, L506.1000, L100.0100, L509.1000, L500.4050 #### [facility] Laboratory [facility] [place] [address] [place], [address] Discharge Instructionon 11-05 Discharge Instruction [facility] Medical Records Department [address] [place] [address] Instructions for Home/Discharge Instructions 11/18/24 1331 MR#: [id number] Acct: [id number] Name: PILAR PERSAUD Rep #: [id number] : 1955 69 From: Yadiel Quinn DO PCP: Dr. Anastacio Lloyd MD Status:REG [facility] Discharge Instructions Diet Discharge Diet: No restrictions Activity Weight Bearing Status: Full weight bearing Dressing / Incision Call your doctor if you observe: Shortness of breath and Chest pain Additional Dressing/Incision Instructions:: Do not shower 72hrs. Begin daily showering warm water antibacterial soap postop day #3( 72hrs Post-operatively) and then daily. Leave the dressing on for 72 hours postoperatively then may remove prior to first shower and change dressing daily after this until no drainage for 2 consecutive days then may leave open to air. Follow hip precautions that were reviewed in hospital. Wear compression stockings, may remove at night. Start physical therapy as directed in hospital. Follow prescriptions instructions do not take any other pain medication or differ dosing without consulting your physician. Do not take oral NSAIDs until blood thinner has been completed , then may begin the day after completion if needed . Call Dr. Quinn's office with any concerns. Follow Up Care Please Follow Up With: Yadiel Quinn DO When: 2 weeks Test Results: Test results from this visit will be discussed in further detail at your follow-up appointment, if applicable. Discharge Plan Admission Primary Reason for Your Visit: Left total hip Attending Provider: Yadiel Quinn Primary Care Provider: Anastacio Lloyd Instructions Print Language: Slovak Discharge Orders/Prescriptions Prescriptions: New acetaminophen 500 mg tablet 1,000 mg PO Q6H Qty: 100 0RF cephalexin 500 mg capsule 1,000 mg PO Q8H Qty: 4 0RF Rx Instructions: Take 2 tabs before you go to bed and 2 tabs after 5 AM morning after surgery when you wake up Eliquis 2.5 mg tablet 2.5 mg PO BID Qty: 42 0RF Rx Instructions: Begin morning after surgery. oxycodone 5 mg tablet 5 - 10 mg PO Q4H PRN (Reason: pain) 7 Days Qty: 60 0RF Continued cholecalciferol (vitamin D3) 50 mcg (2,000 unit) capsule 50 mcg PO DAILY cyclobenzaprine 10 mg tablet 10 mg PO HS oxymetazoline [12 Hour Nasal Relief [place]] 0.05 % spray,non-aerosol 1 spray intranasal ONCE PRN (Reason: DRY NOSE) famotidine 20 mg tablet 20 mg PO DAILY Qty: 90 3RF estradiol 0.01 % (0.1 mg/gram) cream See Rx Instructions vaginal .COMPLEX Qty: 42.5 2RF Rx Instructions: small amount as directed vaginal 3 times per week; Trimo-Wallis Jelly 0.025-0.01 % gel See Rx Instructions vaginal .COMPLEX Qty: 113.4 3RF Rx Instructions: 1 application VAGINAL once a week; Prolia 60 mg/mL syringe 60 mg subcut [id number] atorvastatin 40 mg tablet 40 mg PO QHS Patient Comments: TAKE 1 TABLET BY MOUTH NIGHTLY Held oxaprozin 600 mg tablet 600 mg PO BID Hold Instructions: May resume after completion of blood thinner if needed aspirin 81 mg Tablet 81 mg PO DAILY Hold Instructions: Resume on 11/21/24. Other Ambulatory Orders: 12 Lead EKG (Routine) Timeframe: 1 Day Location: None Selected Ordered By: Dr. Yadiel Quinn Referrals / Follow Up: Anastacio Lloyd MD [Primary Care Provider] - Disposition Disposition (needs filled in before D/C Order can be placed): Home, Self Care 11/18/24 1335 Yadiel Quinn DO CC: Dr. Anastacio Lloyd MD Signed Normal [facility] deOrdered By: Yadiel Quinn on 11-18-2024 Bedside Glucose (Misc Panel) 67 mg/dL Low 74-106 [facility] Comment on above: MANAGEMENT OF PATIEN T CARE PER NURSING PROTOCOL Hip Min 2 Views (Portable)on 11-18-2024 Hip Min 2 Views (Portable) [facility] Imaging Services [address] [place] [address] Hip Min 2 Views (Portable) MR#: [id number] Acct: [id number] Name: SHAWANDAPILAR CONTRERAS Rep #: [id number] : 1955 F 69 From: Alen Fermin MD PCP: Dr. Anastacio Lloyd MD Status: [facility] Study: Hip Min 2 Views (Portable) Date of Exam: 11/18 Exam# [id number] Ordering Dr: Yadiel Quinn DO [id number] EXAM: XR LEFT HIP WITH PELVIS WHEN PERFORMED, 2 OR 3 VIEWS CLINICAL INDICATION: Postop -- in PACU TECHNIQUE: Two or three views of the left hip with pelvis when performed. COMPARISON: 11/24/22. FINDINGS: New left total hip arthroplasty with satisfactory alignment and no complications. No acute fracture. Expected soft tissue gas and edema. Phleboliths in the right pelvis. RAD/Hip Min 2 Views (Portable) IMPRESSION: No unexpected postsurgical findings. Electronically Signed: Alen Fermin MD at 18:08 EST , CC: Dr. Anastacio Lloyd MD; Dr. Yadiel Quinn DO Global Director Air And Climate Change: Signed [facility] MR/POSTOP.[facility] 11-18-2024 MR/POSTOP.[facility] Medical Records Department [address] [place] [address] Anesthesia Postop Eval I 11/18/24 1015 MR#: [id number] Acct: [id number] Name: PILAR PERSAUD Rep #: [id number] : 1955 69 From: Rene Goldsmith CRNA PCP: Dr. Anastacio Lloyd MD Status:REG [facility] Y Race: C Location: [place] [address] Anesthesia: Postop Eval I Current Vital Signs Temperature: 36.7 F Pulse Rate: 80 Blood Pressure: 98/67 Respiratory Rate: 16 Pulse Ox: 97 Oxygen Delivery Method: Venturi Mask Oxygen Flow Rate (L/min): 4 Assessment Airway patent: Yes Spontaneous unlabored respirations: Yes Mental status: Asleep nausea: No Vomiting: No Anesthesia Complication: No Fluid Hydration Crystalloid volume administer (ml): 2,000 Total IV fluid infused: 2,000 Progress Note Anesthesia document: Postop Eval 1 completed: Yes 11/18/24 1016 Date Rene Rebollar Signature: Date CC: Signed Normal [facility] Operative Reporton Operative Report [facility] Medical Records Department [address] [place] [address] Operative Report 11/18/24 1016 MR#: [id number] Acct: [id number] Name: PILAR PERSAUD Rep #: [id number] : 1955 69 From: Yadiel Quinn DO PCP: Dr. Anastacio Lloyd MD Status:[facility] Location: [place] [address] Operative Report (Standard) Operative Information Date of Procedure: 11/18/24 Pre-Operative Diagnosis: Left hip DJD Post-Operative Diagnosis: Same Surgery/Procedure Performed: Left total hip arthroplasty crate repairer: Yes Physician Extender: Castillo Costello Tasks completed by press assistant and feeder: Opening closing Type of Anesthesia: Spinal RN Documented Start/Stop Times: Operation Date: 11/18/24 08:15 Case Time Into Pre-Op 11/18/24 06:19 Anesthesia Start 11/18/24 08:01 Into Room 11/18/24 08:01 Out of Pre-Op 11/18/24 08:01 Procedure Start 11/18/24 08:32 Procedure End 11/18/24 10:03 Anesthesia End 11/18/24 10:11 Out of Room 11/18/24 10:11 Procedure Start Time: 08:32 Procedure Stop Time: 10:03 Select all DRAINS/GRAFTS/IMPLANTS that apply: Implanted device ([place]) Implanted device details: Sera Estimated Blood Loss: 100 Specimen collected: Yes Description of specimen(s) removed: Femoral head Description of surgery: Preoperative diagnosis: Left hip DJD Postoperative diagnosis: Same Procedure: CT-guided Makoplasty assisted left total hip arthroplasty Implants: Sera Accolade II stem size 6, 127 degree neck angle -5 head neck length 52 mm Trident II acetabular shell with 40 mm cancellous screw x2 36 mm ceramic head, 10 degree Trident X3 polyethylene insert. Anesthesia: Spinal EBL: 100 cc Complications: None Condition: Stable to PACU Semiconductor Processing Technician Castillo Costello. My physician clerical dentist assistant was a vital part of this case. He was important in appropriate retraction during the case, and protection of soft tissues during procedure. His intimate knowledge of the case and my steps aided in safe and expedient completion of the procedure as well as appropriate position of the extremity during the case. He was also vital in assisting with closure under my direct supervision. Indication for procedure: This is a 69-year-old female who has had long-standing arthrosis of the hip who has failed conservative treatment and wished to undergo total hip arthroplasty. We did discuss operative versus nonoperative intervention including risks of bleeding, infection , nerve artery tissue damage, need for further surgery, fracture, leg length discrepancy dislocation blood clot and need for postoperative physical therapy and postoperative expectations. An informed consent was signed. Procedure: Patient was met in the preoperative holding area once again the operative extremity was identified by both patient and physician and was marked. Patient was met by anesthesia . Anesthesia was started. patient was then positioned in the lateral decubitus position on a well-padded pegboard with an axillary roll. All bony prominences were checked and padded. The patient was prepped and draped in the usual sterile fashion. A timeout was called to ensure the proper patient procedure and extremity were being contemplated. Anatomic landmarks were palpated and marked for a standard posterior lateral approach. Prior to this the ASIS was palpated and 3 fingerbreadths proximal to this 3 pins were placed at a 45 degree angle into the iliac crest with good purchase, stab incisions were made with a 15 blade into the skin prior to placement. The Makoplasty array was then secured. A 10 blade scalpel was used to make a posterior incision through the skin and subcutaneous tissue. retractors were used and electrocautery was used to maintain meticulous hemostasis and dissect full-thickness flaps until the gluteal fascia was reached. The gluteal fascia was incised in line with the gluteal fibers. The bursal tissue was then freed from the underside and a Charnley retractor was placed. The femoral trochanteric checkpoint was placed and leg length was assessed using the trochanteric checkpoint and an EKG lead that was placed on the knee prior to prepping the leg .the fat pad was then elevated off of the external rotators with electrocautery and the external rotators were dissected off of the greater trochanter including the piriformis and were tagged with #1 Ethibond for later repair. The joint capsule opened with posterior trapdoor technique. The hip was surgically dislocated. The measurement on the preoperative CT from the top of the lesser trochanter to the femoral neck cut was marked Hohmann was placed around the lesser trochanter. A neck cutting guide was used to minor the neck with a Bovie and an oscillating saw was used complete the femoral neck cut. The femoral head was then removed and sized. We then turned our attention to the acetabulum. (more content not included)... Normal [facility] Fructosamineon 11-13-2024 FRUCTOSAMINE 231 umol/L Normal 0-285 [facility] Comment on above: Result Comment: Publ ished reference interval for apparently healthy subjects between age 20 and 60 is 205 - 285 umol/L and in a poorly controlled diabetic population is 228 - 563 umol/L with a mean of 396 umol/L. Performed at: [address] [id number] Brigadier: Matt Rizo MD, Phone: [phone] Performed at: [address] [id number] Brigadier: Leonid Juarez PhD, Phone: [phone] Performed By: #### L 501.5200, L3600.3400, L500.2500, L501.9985, BTSPAT, L300.4310, L100.0100, M100.651, L3400.0100, L300.3900 ####[facility] [address] [place], [address] Nicotine Screen Bloodon -0 COTININE BLOOD <1.0 Normal . [facility] Comment on above: Result Comment: This test was developed and its performance characteristics determined by [employer]. It has not been cleared or approved by the Food and Drug Administration. Cotinine levels greater than 20.0 are consistent with the use of tobacco or tobacco cessation products. Performed By: #### L 501.5200, L3600.3400, L500.2500, L501.9985, BTSPAT, L300.4310, L100.0100, M100.651, L3400.0100, L300.3900 ####[facility] [address] [place], [address] NICOTINE BLOOD <1.0 Normal . [facility] Comment on above: Result Comment: This test was developed and its performance characteristics determined by [employer]. It has not been cleared or approved by the Food and Drug Administration. Nicotine levels greater than 2.0 are consistent with the use of tobacco or tobacco cessation products. Performed By: #### L 501.5200, L3600.3400, L500.2500, L501.9985, BTSPAT, L300.4310, L100.0100, M100.651, L3400.0100, L300.3900 ####[facility] [address] [place], [address] MRSA/SAID NASAL SCREENon MRSA+SAID SCRN Reason for Exam: Angelita jaye MRSA MRSA Negative S. AUREUS S. aureus Negative Normal [facility] Comment on above: Performed By: #### L 501.5200, L3600.3400, L500.2500, L501.9985, BTSPAT, L300.4310, L100.0100, M100.651, L3400.0100, L300.3900 ####[facility] [address] [place], [address] Absolute neutrophil countOrd ered By: Yadiel Quinn on 11-10-2024 Neutrophils (Bld) [#/Vol] 3.3 10*3/uL 2.0-7.7 [facility] Basic Metabolic Profile (BMP )on 11-10-2024 BUN/CRE 23.0 RATIO High 10-20 [facility] Comment on above: Performed By: #### L 501.5200, L3600.3400, L500.2500, L501.9985, BTSPAT, L300.4310, L100.0100, M100.651, L3400.0100, L300.3900 ####[facility] [address] [place], [address] CA,Total 10.2 mg/dL High 8.5-10.1 [facility] Comment on above: Performed By: #### L 501.5200, L3600.3400, L500.2500, L501.9985, BTSPAT, L300.4310, L100.0100, M100.651, L3400.0100, L300.3900 ####[facility] [address] [place], [place], [phone](714) Chloride [Moles/Vol] 109 mmol/L High 98-107 [facility] Comment on above: Performed By: #### L 501.5200, L3600.3400, L500.2500, L501.9985, BTSPAT, L300.4310, L100.0100, M100.651, L3400.0100, L300.3900 ####[facility] [address] [place], [address] CO2 [Moles/Vol] 30.0 mmol/L Normal 21.0-32.0 [facility] Comment on above: Performed By: #### L 501.5200, L3600.3400, L500.2500, L501.9985, BTSPAT, L300.4310, L100.0100, M100.651, L3400.0100, L300.3900 ####[facility] [address] [place], [address] Creatinine [Mass/Vol] 1.22 mg/dL High 0.55-1.02 [facility] Comment on above: Result Comment: The validity of the calculated GFR GFRAA in patients over 70 years has not been determined. Clinical correlation is essential. Performed By: #### L 501.5200, L3600.3400, L500.2500, L501.9985, BTSPAT, L300.4310, L100.0100, M100.651, L3400.0100, L300.3900 ####[facility] [address] [place], [place], [phone] EST GFR - AA 56 mL/min Low >60 [facility] Comment on above: Result Comment: Afri can Nigerian GFR Calc Performed By: #### L 501.5200, L3600.3400, L500.2500, L501.9985, BTSPAT, L300.4310, L100.0100, M100.651, L3400.0100, L300.3900 ####[facility] [address] [place], [address] GAP 2 Low 5-15 [facility] Comment on above: Performed By: #### L 501.5200, L3600.3400, L500.2500, L501.9985, BTSPAT, L300.4310, L100.0100, M100.651, L3400.0100, L300.3900 ####[facility] [address] [place], [address] GFR/1.73 sq M.predicted among non-blacks MDRD (S/P/Bld) [Vol rate/Area] 46 mL/min/{1.73_m2} Low >60 [facility] Comment on above: Result Comment: Non- GFR Calc Performed By: #### L 501.5200, L3600.3400, L500.2500, L501.9985, BTSPAT, L300.4310, L100.0100, M100.651, L3400.0100, L300.3900 ####[facility] [address] [place], [address] Glucose [Mass/Vol] 98 mg/dL Normal 74-106 [facility] Comment on above: Performed By: #### L 501.5200, L3600.3400, L500.2500, L501.9985, BTSPAT, L300.4310, L100.0100, M100.651, L3400.0100, L300.3900 ####[facility] [address] [place], [place], [phone] Potassium [Moles/Vol] 4.6 mmol/L Normal 3.5-5.1 [facility] Comment on above: Performed By: #### L 501.5200, L3600.3400, L500.2500, L501.9985, BTSPAT, L300.4310, L100.0100, M100.651, L3400.0100, L300.3900 ####[facility] [address] [place], [place], [phone] Sodium [Moles/Vol] 141 mmol/L Normal 136-145 [facility] Comment on above: Performed By: #### L 501.5200, L3600.3400, L500.2500, L501.9985, BTSPAT, L300.4310, L100.0100, M100.651, L3400.0100, L300.3900 ####[facility] [address] [place], [place], [phone] Urea nitrogen [Mass/Vol] 28 mg/dL High 7-18 [facility] Comment on above: Performed By: #### L 501.5200, L3600.3400, L500.2500, L501.9985, BTSPAT, L300.4310, L100.0100, M100.651, L3400.0100, L300.3900 ####[facility] [address] [place], [place], [phone] Basophil percentageOrdered B y: Yadiel Quinn on 11-10-2024 Basophils/100 WBC (Bld) 0.9 % 0-1 [facility] Blood cotinine screen by enz yme immunoassayOrdered By: Yadiel Quinn on 11-10-2024 Nicotine & Cotinine <1.0 ug/mL . [facility] Comment on above: This test was develo ped and its performance characteristicsdetermined by [facility]. It has not been cleared orapproved by the Food and Drug Administration.Cotinine levels greater than 20.0 are consistent with theuse of tobacco or tobacco cessation products. Blood urea nitrogen (BUN)/cr eatinine ratioOrdered By: Yadiel Quinn on 11-10-2024 Urea nitrogen/Creatinine [Mass ratio] 23.0 mg/mg High 10-20 [facility] CBC W/Diff, Automatedon Absolute Lymph 1.56 X10 3/uL Normal 0.83-4.51 [facility] Comment on above: Performed By: #### L 501.5200, L3600.3400, L500.2500, L501.9985, BTSPAT, L300.4310, L100.0100, M100.651, L3400.0100, L300.3900 ####[facility] [address] [place], [place], [phone] Absolute Neut 3.3 X10 3/uL Normal 2.0-7.7 [facility] Comment on above: Performed By: #### L 501.5200, L3600.3400, L500.2500, L501.9985, BTSPAT, L300.4310, L100.0100, M100.651, L3400.0100, L300.3900 ####[facility] [address] [place], [address] Basophils/100 WBC (Bld) 0.9 % Normal 0-1 [facility] Comment on above: Performed By: #### L 501.5200, L3600.3400, L500.2500, L501.9985, BTSPAT, L300.4310, L100.0100, M100.651, L3400.0100, L300.3900 ####[facility] [address] [place], [place], [phone]27) Eosinophils/100 WBC (Bld) 2.7 % Normal 0-5 [facility] Comment on above: Performed By: #### L 501.5200, L3600.3400, L500.2500, L501.9985, BTSPAT, L300.4310, L100.0100, M100.651, L3400.0100, L300.3900 ####[facility] [address] [place], [place], [phone](140) Erythrocyte distribution width (RBC) [Ratio] 12.1 % Normal 11.6-14.6 [facility] Comment on above: Performed By: #### L 501.5200, L3600.3400, L500.2500, L501.9985, BTSPAT, L300.4310, L100.0100, M100.651, L3400.0100, L300.3900 ####[facility] [address] [place], [address](085) Hematocrit (Bld) [Volume fraction] 37.8 % Normal 37-47 [facility] Comment on above: Performed By: #### L 501.5200, L3600.3400, L500.2500, L501.9985, BTSPAT, L300.4310, L100.0100, M100.651, L3400.0100, L300.3900 ####[facility] [address] [place], [place], [phone]) Hemoglobin (Bld) [Mass/Vol] 11.9 g/dL Low 12.0-15.0 [facility] Comment on above: Performed By: #### L 501.5200, L3600.3400, L500.2500, L501.9985, BTSPAT, L300.4310, L100.0100, M100.651, L3400.0100, L300.3900 ####[facility] [address] [place], [address] IG% 0.400 Normal 0.0-0.9 [facility] Comment on above: Result Comment: IG% - Immature Granulocytes (promyelocytes, myelocytes and metamyelocytes) > 1% indicates that a LEFT SHIFT is Present. Performed By: #### L 501.5200, L3600.3400, L500.2500, L501.9985, BTSPAT, L300.4310, L100.0100, M100.651, L3400.0100, L300.3900 ####[facility] [address] [place], [address] Lymphocytes/100 WBC (Bld) 28.2 % Normal 19-41 [facility] Comment on above: Performed By: #### L 501.5200, L3600.3400, L500.2500, L501.9985, BTSPAT, L300.4310, L100.0100, M100.651, L3400.0100, L300.3900 ####[facility] [address] [place], [address] MCH (RBC) [Entitic mass] 30.3 pg Normal 27.0-32.0 [facility] Comment on above: Performed By: #### L 501.5200, L3600.3400, L500.2500, L501.9985, BTSPAT, L300.4310, L100.0100, M100.651, L3400.0100, L300.3900 ####[facility] [address] [place], [address] MCHC (RBC) [Mass/Vol] 31.5 g/dL Low 32-36 [facility] Comment on above: Performed By: #### L 501.5200, L3600.3400, L500.2500, L501.9985, BTSPAT, L300.4310, L100.0100, M100.651, L3400.0100, L300.3900 ####[facility] [address] [place], [address] MCV (RBC) [Entitic vol] 96.2 fL Normal 81-99 [facility] Comment on above: Performed By: #### L 501.5200, L3600.3400, L500.2500, L501.9985, BTSPAT, L300.4310, L100.0100, M100.651, L3400.0100, L300.3900 ####[facility] [address] [place], [address] Monocytes/100 WBC (Bld) 8.3 % Normal 0-10 [facility] Comment on above: Performed By: #### L 501.5200, L3600.3400, L500.2500, L501.9985, BTSPAT, L300.4310, L100.0100, M100.651, L3400.0100, L300.3900 ####[facility] [address] [place], [address] Neutrophils/100 WBC (Bld) 59.5 % Normal 47-70 [facility] Comment on above: Performed By: #### L 501.5200, L3600.3400, L500.2500, L501.9985, BTSPAT, L300.4310, L100.0100, M100.651, L3400.0100, L300.3900 ####[facility] [address] [place], [address] Nucleated RBC (Bld) [#/Vol] 0 10*3/uL Normal 0-5 [facility] Comment on above: Performed By: #### L 501.5200, L3600.3400, L500.2500, L501.9985, BTSPAT, L300.4310, L100.0100, M100.651, L3400.0100, L300.3900 ####[facility] [address] [place], [address] Platelet mean volume (Bld) [Entitic vol] 9.1 fL Normal 6.2-12.0 [facility] Comment on above: Performed By: #### L 501.5200, L3600.3400, L500.2500, L501.9985, BTSPAT, L300.4310, L100.0100, M100.651, L3400.0100, L300.3900 ####[facility] [address] [place], [address](442) Platelets (Bld) [#/Vol] 287 10*3/uL Normal 150-450 [facility] Comment on above: Performed By: #### L 501.5200, L3600.3400, L500.2500, L501.9985, BTSPAT, L300.4310, L100.0100, M100.651, L3400.0100, L300.3900 ####[facility] [address] [place], [address] RBC (Bld) [#/Vol] 3.93 10*6/uL Low 4.2-5.4 [facility] Comment on above: Performed By: #### L 501.5200, L3600.3400, L500.2500, L501.9985, BTSPAT, L300.4310, L100.0100, M100.651, L3400.0100, L300.3900 ####[facility] [address] [place], [address](258) RDW SD 42.5 fl Normal 35.1-43.9 [facility] Comment on above: Performed By: #### L 501.5200, L3600.3400, L500.2500, L501.9985, BTSPAT, L300.4310, L100.0100, M100.651, L3400.0100, L300.3900 ####[facility] [address] [place], [address](393) WBC (Bld) [#/Vol] 5.5 10*3/uL Normal 4.4-11.0 [facility] Comment on above: Performed By: #### L 501.5200, L3600.3400, L500.2500, L501.9985, BTSPAT, L300.4310, L100.0100, M100.651, L3400.0100, L300.3900 ####[facility] [address] [place], [address] Carbon dioxide measurementOr dered By: [facility] on 11-10-2024 CO2 [Moles/Vol] 30.0 mmol/L 21.0-32.0 [facility] Chloride measurementOrdered By: [facility] on 11-10-2024 Chloride [Moles/Vol] 109 mmol/L High 98-107 [facility] Eosinophil percentageOrdered By: [facility] on 11-10-2024 Eosinophils/100 WBC (Bld) 2.7 % 0-5 [facility] Erythrocyte distribution wid th ratioOrdered By: [facility] on 11-10-2024 Erythrocyte distribution width (RBC) [Ratio] 12.1 % 11.6-14.6 [facility] Erythrocyte distribution wid th standard deviationOrdered By: [facility] on 11-10-2024 Erythrocyte distribution width (RBC) [Entitic vol] 42.5 fL 35.1-43.9 [facility] Estimated glomerular filtrat ion rate (GFR) AmericanOrdered By: [facility] on 11-10-2024 Estimated GFR (MDRD) Amer 56 mL/min Low >60 [facility] Comment on above: GFR Calc Extremity Lower without Cont raon 11-10-2024 Extremity Lower without Contra [facility] Imaging Services [address] [place] [address] Extremity Lower without Contra MR#: [id number] Acct: [id number] Name: PILAR PERSAUD Rep #: [id number] : 1955 F 69 From: Alen Fermin MD PCP: Dr. Anastacio Lloyd MD Status: REG CLI Study: Extremity Lower without Contra Date of Exam: 0 11/10/24 Exam# [id number] Ordering Dr: Yadiel Quinn DO [id number] EXAM: CT LEFT LOWER EXTREMITY WITHOUT INTRAVENOUS CONTRAST CLINICAL INDICATION: templating for left ROBERT TECHNIQUE: Helically acquired images were obtained of the left lower extremity without intravenous contrast. 2-D reformats were performed by the technologist. CTDIvol = ( 13.26 ) mGy, DLP = ( 824.00 ) mGycm This CT exam was performed using one or more of the following dose reduction techniques: automated exposure control, adjustment of the mA and/or kV according to patient size, and/or use of iterative reconstruction technique. COMPARISON: No relevant prior studies available. FINDINGS: BONES/JOINTS: Severe left hip osteoarthrosis. At least a moderate-sized joint effusion. No acute or healing fracture. There is grade 1 degenerative anterolisthesis of L4 on L5. There is at least moderate degenerative disease at and L5-S1 and at least bxui-cq-wwonjppo disease at L4-5. No unusual lytic lesions of bone. SOFT TISSUES: Unremarkable. No soft tissue swelling or gas. No radiopaque foreign body. No soft tissue mass. CT/Extremity Lower without Contra IMPRESSION: Preoperative planning study showing severe left hip osteoarthrosis with at least a moderate-sized left hip joint effusion. Electronically Signed: Alen Fermin MD at 12:22 EST , CC: Dr. Anastacio Lloyd MD; Dr. Yadiel Quinn DO Global Director Air And Climate Change: Signed Normal [facility] FructosamineOrdered By: Desmond Quinn on 11-10-2024 Fructosamine 231 umol/L 0-285 [facility] Comment on above: Published reference interval for apparently healthysubjects between age 20 and 60 is 205 - 285 umol/L and in apoorly controlled diabetic population is 228 - 563 umol/Lwith a mean of 396 umol/L.Performed at: [place] [address] [place], [place] [id number] Director: Matt Rizo MD, Phone: [phone] at: [facility] [id number] [place], [place] [id number] Director: Leonid Juarez PhD, Phone: [phone] Glomerular filtration rate ( GFR) estimationOrdered By: Yadiel Quinn on 11-10-2024 Estimated GFR (MDRD) Non-Af Amer 46 mL/min Low >60 [facility] Comment on above: Non- GFR Calc Glucose measurementOrdered B y: Yadiel Quinn on 11-10-2024 Glucose [Mass/Vol] 98 mg/dL 74-106 [facility] Hematocrit Auto (Bld) [Volum e fraction]Ordered By: Yadiel Quinn on 11-10-2024 Hematocrit (Bld) [Volume fraction] 37.8 % 37-47 [facility] Hemoglobin A1con 11-10-2024 HbA1c (Bld) [Mass fraction] 5.7 % High 3.8-5.6 [facility] Comment on above: Result Comment: Norm al < 5.7 % Prediabetic 5.7 - 6.4 % Diabetic >or= 6.5 % Please note range changes. Performed By: #### L 501.5200, L3600.3400, L500.2500, L501.9985, BTSPAT, L300.4310, L100.0100, M100.651, L3400.0100, L300.3900 ####[facility] [address] [place], [place], [phone] Hemoglobin A1c percentageOrd ered By: Yadiel Quinn on 11-10-2024 HbA1c (Bld) [Mass fraction] 5.7 % High 3.8-5.6 [facility] Comment on above: Normal < 5.7 % Predi abetic 5.7 - 6.4 % Diabetic >or= 6.5 % Please note range changes. Hemoglobin measurementOrdere d By: Yadiel Quinn on 11-10-2024 Hemoglobin (Bld) [Mass/Vol] 11.9 g/dL Low 12.0-15.0 [facility] Immature granulocytes/100 WB C Auto (Bld)Ordered By: Yadiel Quinn on 11-10-2024 Immature granulocytes/100 WBC (Bld) 0.400 % 0.0-0.9 [facility] Comment on above: IG% - Immature Granu locytes (promyelocytes, myelocytes and metamyelocytes) > 1% indicates that a LEFT SHIFT is Present. International normalized rat io (INR) calculationOrdered By: Yadiel Quinn on 11-10-2024 INR Coag (Bld) [Relative time] 1.0 {INR} [facility] Lymphocytes Auto (Unsp spec) [#/Vol]Ordered By: Yadiel Quinn on 11-10-2024 Lymphocytes (Bld) [#/Vol] 1.56 10*3/uL 0.83-4.51 [facility] Lymphocytes/100 WBC Auto (Un sp spec)Ordered By: Yadiel Quinn on 11-10-2024 Lymphocytes/100 WBC (Bld) 28.2 % 19-41 [facility] MCV (mean corpuscular volume ) determinationOrdered By: Yadiel Quinn on 11-10-2024 MCV (RBC) [Entitic vol] 96.2 fL 81-99 [facility] MRSA screenOrdered By: Kris Quinn on 11-10-2024 Nasal Screen MRSA/MSSA [facility] Magnesiumon 11-10-2024 Magnesium [Mass/Vol] 1.8 mg/dL Normal 1.6-2.6 [facility] Comment on above: Performed By: #### L 501.5200, L3600.3400, L500.2500, L501.9985, BTSPAT, L300.4310, L100.0100, M100.651, L3400.0100, L300.3900 ####[facility] [address] [place], [place], [id number] Magnesium measurementOrdered By: Yadiel Quinn on 11-10-2024 Magnesium [Mass/Vol] 1.8 mg/dL 1.6-2.6 [facility] Mean corpuscular hemoglobin (MCH) determinationOrdered By: Yadiel Quinn on 11-10-2024 MCH (RBC) [Entitic mass] 30.3 pg 27.0-32.0 [facility] Mean corpuscular hemoglobin concentration (MCHC) determinationOrdered By: Yadiel Quinn on 11-10-2024 MCHC (RBC) [Mass/Vol] 31.5 g/dL Low 32-36 [facility] Mean platelet volume determi nationOrdered By: Yadiel Quinn on 11-10-2024 Platelet mean volume (Bld) [Entitic vol] 9.1 fL 6.2-12.0 [facility] Monocyte percentageOrdered B y: Yadiel Quinn on 11-10-2024 Monocytes/100 WBC (Bld) 8.3 % 0-10 [facility] Neutrophil percentageOrdered By: Yadiel Quinn on 11-10-2024 Neutrophils/100 WBC (Bld) 59.5 % 47-70 [facility] Nicotine [Mass/Vol]Ordered B y: Yadiel Leungonel on 11-10-2024 Nicotine Level <1.0 ug/mL . [facility] Comment on above: This test was develo ped and its performance characteristicsdetermined by [employer]. It has not been cleared orapproved by the Food and Drug Administration.Nicotine levels greater than 2.0 are consistent with theuse of tobacco or tobacco cessation products. Nucleated red blood cell per centageOrdered By: Yadiel Quinn on 11-10-2024 Nucleated RBC/100 WBC (Bld) [Ratio] 0 % 0-5 [facility] Partial Thromboplast Timeon 11-10-2024 aPTT Coag (Bld) [Time] 25.5 s Normal 24.1-36.2 [facility] Comment on above: Performed By: #### L 501.5200, L3600.3400, L500.2500, L501.9985, BTSPAT, L300.4310, L100.0100, M100.651, L3400.0100, L300.3900 ####[facility] [address] [place], [address] Platelet countOrdered By: Nicky Quinn on 11-10-2024 Platelets (Bld) [#/Vol] 287 10*3/uL 150-450 [facility] Potassium measurementOrdered By: Yadiel Quinn on 11-10-2024 Potassium [Moles/Vol] 4.6 mmol/L 3.5-5.1 [facility] Prothrombin Time w/INRon INR Coag (PPP) [Relative time] 1.0 {INR} Normal [facility] Comment on above: Performed By: #### L 501.5200, L3600.3400, L500.2500, L501.9985, BTSPAT, L300.4310, L100.0100, M100.651, L3400.0100, L300.3900 ####[facility] [address] [place], [place], [id number] PT Coag (PPP) [Time] 13.1 s Normal 11.7-14.9 [facility] Comment on above: Performed By: #### L 501.5200, L3600.3400, L500.2500, L501.9985, BTSPAT, L300.4310, L100.0100, M100.651, L3400.0100, L300.3900 ####[facility] [address] [place], [place], [id number] Prothrombin timeOrdered By: Yadiel Quinn on 11-10-2024 PT Coag (PPP) [Time] 13.1 s 11.7-14.9 [facility] RBC Auto (Bld) [#/Vol]Ordere d By: Yadiel Quinn on 11-10-2024 RBC (Bld) [#/Vol] 3.93 10*6/uL Low 4.2-5.4 [facility] Serum anion gap measurementO rdered By: Yadiel Quinn on 11-10-2024 Anion gap [Moles/Vol] 2 mmol/L Low 5-15 [facility] Serum or plasma calcium filomena urement (mass/volume)Ordered By: Yadiel Quinn on 11-10-2024 Calcium [Mass/Vol] 10.2 mg/dL High 8.5-10.1 [facility] Serum or plasma creatinine m easurement (mass/volume)Ordered By: Yadiel Quinn on 11-10-2024 Creatinine [Mass/Vol] 1.22 mg/dL High 0.55-1.02 [facility] Comment on above: The validity of the calculated GFR & GFRAA in patients over 70 years has not been determined. Clinical correlation is essential. Serum or plasma urea nitroge n measurement (mass/volume)Ordered By: Yadiel Quinn on 11-10-2024 Urea nitrogen [Mass/Vol] 28 mg/dL High 7-18 [facility] Sodium levelOrdered By: Desmond Quinn on 11-10-2024 Sodium [Moles/Vol] 141 mmol/L 136-145 [facility] Type AND Screen - PAT ONLYon 11-10-2024 Ab SCREEN GEL Negative Normal [facility] Comment on above: Order Comment: Reaso n for Laboratory Test [id number] THR Performed By: #### L 501.5200, L3600.3400, L500.2500, L501.9985, BTSPAT, L300.4310, L100.0100, M100.651, L3400.0100, L300.3900 ####[facility] [address] [place], [place], [phone] White blood cell (WBC) count Ordered By: Yadiel Quinn on 11-10-2024 WBC (Bld) [#/Vol] 5.5 10*3/uL 4.4-11.0 [facility] aPTT Coag (PPP) [Time]Ordere d By: Yadiel Quinn on 11-10-2024 aPTT Coag (Bld) [Time] 25.5 s 24.1-36.2 [facility] Nicotine Screen Bloodon 12- COTININE BLOOD <1.0 Normal . [facility] Comment on above: Result Comment: This test was developed and its performance characteristics determined by [employer]. It has not been cleared or approved by the Food and Drug Administration. Cotinine levels greater than 20.0 are consistent with the use of tobacco or tobacco cessation products. Performed at: [address] [id number] Brigadier: Matt Rizo MD, Phone: [phone] Performed By: #### L 500.4100, L506.1000, L100.0100, L509.1000, L500.4050 #### [facility] [address] [place], [place], [address] NICOTINE BLOOD <1.0 Normal . [facility] Comment on above: Result Comment: This test was developed and its performance characteristics determined by [facility]. It has not been cleared or approved by the Food and Drug Administration. Nicotine levels greater than 2.0 are consistent with the use of tobacco or tobacco cessation products. Performed By: #### L 500.4100, L506.1000, L100.0100, L509.1000, L500.4050 #### [facility] [address] [place], [place], [phone] Blood cotinine screen by [employer] immunoassayOrdered By: Yadiel Quinn on 10-27-2024 Nicotine & Cotinine <1.0 ug/mL . [facility] Comment on above: This test was develo ped and its performance characteristicsdetermined by [employer]. It has not been cleared orapproved by the Food and Drug Administration.Cotinine levels greater than 20.0 are consistent with theuse of tobacco or tobacco cessation products.Performed at: [address] [id number] Director: Matt Rizo MD, Phone: [phone] Nicotine [Mass/Vol]Ordered B y: Yadiel Quinn on 10-27-2024 Nicotine Level <1.0 ug/mL . [facility] Comment on above: This test was develo ped and its performance characteristicsdetermined by [employer]. It has not been cleared orapproved by the Food and Drug Administration.Nicotine levels greater than 2.0 are consistent with theuse of tobacco or tobacco cessation products. CBC W/Diff, Automatedon - Absolute Lymph 1.51 X10 3/uL Normal 0.83-4.51 [facility] Comment on above: Order Comment: Order Date: 05/27/24 Order Info: 0184-1 - CBCD Performed By: #### L 500.4100, L506.1000, L100.0100, L509.1000, L500.4050 #### [facility] [address] [place], [address] Absolute Neut 4.0 X10 3/uL Normal 2.0-7.7 [facility] Comment on above: Order Comment: Order Date: 05/27/24 Order Info: 018- - CBCD Performed By: #### L 500.4100, L506.1000, L100.0100, L509.1000, L500.4050 #### [facility] [address] [place], [address] Basophils/100 WBC (Bld) 0.6 % Normal 0-1 [facility] Comment on above: Order Comment: Order Date: 05/27/24 Order Info: 018- - CBCD Performed By: #### L 500.4100, L506.1000, L100.0100, L509.1000, L500.4050 #### [facility] [address] [place], [address] Eosinophils/100 WBC (Bld) 5.0 % Normal 0-5 [facility] Comment on above: Order Comment: Order Date: 05/27/24 Order Info: 0184- - CBCD Performed By: #### L 500.4100, L506.1000, L100.0100, L509.1000, L500.4050 #### [facility] [address] [place], [address] Erythrocyte distribution width (RBC) [Ratio] 12.4 % Normal 11.6-14.6 [facility] Comment on above: Order Comment: Order Date: 05/27/24 Order Info: 0184- - CBCD Performed By: #### L 500.4100, L506.1000, L100.0100, L509.1000, L500.4050 #### [facility] [address] [place], [address] Hematocrit (Bld) [Volume fraction] 38.7 % Normal 37-47 [facility] Comment on above: Order Comment: Order Date: 05/27/24 Order Info: 0184-1 - CBCD Performed By: #### L 500.4100, L506.1000, L100.0100, L509.1000, L500.4050 #### [facility] [address] [place], [address] Hemoglobin (Bld) [Mass/Vol] 12.3 g/dL Normal 12.0-15.0 [facility] Comment on above: Order Comment: Order Date: 05/27/24 Order Info: 0184-1 - CBCD Performed By: #### L 500.4100, L506.1000, L100.0100, L509.1000, L500.4050 #### [facility] [address] [place], [address] IG% 0.300 Normal 0.0-0.9 [facility] Comment on above: Order Comment: Order Date: 05/27/24 Order Info: 0184-1 - CBCD Result Comment: IG% - Immature Granulocytes (promyelocytes, myelocytes and metamyelocytes) > 1% indicates that a LEFT SHIFT is Present. Performed By: #### L 500.4100, L506.1000, L100.0100, L509.1000, L500.4050 #### [facility] [address] [place], [address] Lymphocytes/100 WBC (Bld) 23.7 % Normal 19-41 [facility] Comment on above: Order Comment: Order Date: 05/27/24 Order Info: 0184-1 - CBCD Performed By: #### L 500.4100, L506.1000, L100.0100, L509.1000, L500.4050 #### [facility] [address] [place], [address] MCH (RBC) [Entitic mass] 30.9 pg Normal 27.0-32.0 [facility] Comment on above: Order Comment: Order Date: 05/27/24 Order Info: 0184-1 - CBCD Performed By: #### L 500.4100, L506.1000, L100.0100, L509.1000, L500.4050 #### [facility] [address] [place], [address] MCHC (RBC) [Mass/Vol] 31.8 g/dL Low 32-36 [facility] Comment on above: Order Comment: Order Date: 05/27/24 Order Info: 0184- - CBCD Performed By: #### L 500.4100, L506.1000, L100.0100, L509.1000, L500.4050 #### [facility] [address] [place], [address] MCV (RBC) [Entitic vol] 97.2 fL Normal 81-99 [facility] Comment on above: Order Comment: Order Date: 05/27/24 Order Info: 0184- - CBCD Performed By: #### L 500.4100, L506.1000, L100.0100, L509.1000, L500.4050 #### [facility] [address] [place], [address] Monocytes/100 WBC (Bld) 7.5 % Normal 0-10 [facility] Comment on above: Order Comment: Order Date: 05/27/24 Order Info: 0184- - CBCD Performed By: #### L 500.4100, L506.1000, L100.0100, L509.1000, L500.4050 #### [facility] [address] [place], [address] Neutrophils/100 WBC (Bld) 62.9 % Normal 47-70 [facility] Comment on above: Order Comment: Order Date: 05/27/24 Order Info: 0184-1 - CBCD Performed By: #### L 500.4100, L506.1000, L100.0100, L509.1000, L500.4050 #### [facility] [address] [place], [address] Nucleated RBC (Bld) [#/Vol] 0 10*3/uL Normal 0-5 [facility] Comment on above: Order Comment: Order Date: 05/27/24 Order Info: 0184-1 - CBCD Performed By: #### L 500.4100, L506.1000, L100.0100, L509.1000, L500.4050 #### [facility] [address] [place], [address] Platelet mean volume (Bld) [Entitic vol] 9.3 fL Normal 6.2-12.0 [facility] Comment on above: Order Comment: Order Date: 05/27/24 Order Info: 0184-1 - CBCD Performed By: #### L 500.4100, L506.1000, L100.0100, L509.1000, L500.4050 #### [facility] [address] [place], [address] Platelets (Bld) [#/Vol] 304 10*3/uL Normal 150-450 [facility] Comment on above: Order Comment: Order Date: 05/27/24 Order Info: 0184-1 - CBCD Performed By: #### L 500.4100, L506.1000, L100.0100, L509.1000, L500.4050 #### [facility] [address] [place], [address] RBC (Bld) [#/Vol] 3.98 10*6/uL Low 4.2-5.4 [facility] Comment on above: Order Comment: Order Date: 05/27/24 Order Info: 0184-1 - CBCD Performed By: #### L 500.4100, L506.1000, L100.0100, L509.1000, L500.4050 #### [facility] [address] [place], [address] RDW SD 44.3 fl High 35.1-43.9 [facility] Comment on above: Order Comment: Order Date: 05/27/24 Order Info: 0184-1 - CBCD Performed By: #### L 500.4100, L506.1000, L100.0100, L509.1000, L500.4050 #### [facility] [address] [place], [address] WBC (Bld) [#/Vol] 6.4 10*3/uL Normal 4.4-11.0 [facility] Comment on above: Order Comment: Order Date: 05/27/24 Order Info: 0184-1 - CBCD Performed By: #### L 500.4100, L506.1000, L100.0100, L509.1000, L500.4050 #### [facility] [address] [place], [address] [facility] 09-15-2024 Albumin [Mass/Vol] 3.7 g/dL Normal 3.2-5.0 [facility] Comment on above: Order Comment: Order Date: 05/27/24 Order Info: 0786-1 - CMP Order Info: [id number] - LIPID Performed By: #### L 500.4100, L506.1000, L100.0100, L509.1000, L500.4050 #### [facility] [address] [place], [address] Albumin/Globulin [Mass ratio] 1.2 {ratio} Normal 0.9-2.4 [facility] Comment on above: Order Comment: Order Date: 05/27/24 Order Info: [id number] - CMP Order Info: [id number] - LIPID Performed By: #### L 500.4100, L506.1000, L100.0100, L509.1000, L500.4050 #### [facility] [address] [place], [address] ALK P 96 U/L Normal 45-117 [facility] Comment on above: Order Comment: Order Date: 05/27/24 Order Info: [id number] - CMP Order Info: [id number] - LIPID Performed By: #### L 500.4100, L506.1000, L100.0100, L509.1000, L500.4050 #### [facility] [address] [place], [address] ALT [Catalytic activity/Vol] 23 U/L Normal 13-56 [facility] Comment on above: Order Comment: Order Date: 05/27/24 Order Info: 0786- - CMP Order Info: [id number] - LIPID Performed By: #### L 500.4100, L506.1000, L100.0100, L509.1000, L500.4050 #### [facility] [address] [place], [address] AST [Catalytic activity/Vol] 21 U/L Normal 15-37 [facility] Comment on above: Order Comment: Order Date: 05/27/24 Order Info: 0786- - CMP Order Info: [id number] - LIPID Performed By: #### L 500.4100, L506.1000, L100.0100, L509.1000, L500.4050 #### [facility] [address] [place], [address] Bilirubin [Mass/Vol] 0.30 mg/dL Normal 0.20-1.00 [facility] Comment on above: Order Comment: Order Date: 05/27/24 Order Info: [id number] - CMP Order Info: [id number] - LIPID Result Comment: For patients on eltrombopag therapy, use of Dimension [place] TBIL is not recommended. Performed By: #### L 500.4100, L506.1000, L100.0100, L509.1000, L500.4050 #### [facility] [address] [place], [address] BUN/CRE 22.3 RATIO High 10-20 [facility] Comment on above: Order Comment: Order Date: 05/27/24 Order Info: 0786- - CMP Order Info: [id number] - LIPID Performed By: #### L 500.4100, L506.1000, L100.0100, L509.1000, L500.4050 #### [facility] [address] [place], [address] CA,Total 9.0 mg/dL Normal 8.5-10.1 [facility] Comment on above: Order Comment: Order Date: 05/27/24 Order Info: 0786- - CMP Order Info: [id number] - LIPID Performed By: #### L 500.4100, L506.1000, L100.0100, L509.1000, L500.4050 #### [facility] [address] [place], [address] Chloride [Moles/Vol] 113 mmol/L High 98-107 [facility] Comment on above: Order Comment: Order Date: 05/27/24 Order Info: 0786- - CMP Order Info: [id number] - LIPID Performed By: #### L 500.4100, L506.1000, L100.0100, L509.1000, L500.4050 #### [facility] [address] [place], [address] CO2 [Moles/Vol] 28.0 mmol/L Normal 21.0-32.0 [facility] Comment on above: Order Comment: Order Date: 05/27/24 Order Info: [id number] - CMP Order Info: [id number] - LIPID Performed By: #### L 500.4100, L506.1000, L100.0100, L509.1000, L500.4050 #### [facility] [address] [place], [address] Creatinine [Mass/Vol] 1.03 mg/dL High 0.55-1.02 [facility] Comment on above: Order Comment: Order Date: 05/27/24 Order Info: 07 - CMP Order Info: [id number] - LIPID Result Comment: The validity of the calculated GFR GFRAA in patients over 70 years has not been determined. Clinical correlation is essential. Performed By: #### L 500.4100, L506.1000, L100.0100, L509.1000, L500.4050 #### [facility] [address] [place], [address] EST GFR - AA 68 mL/min Normal >60 [facility] Comment on above: Order Comment: Order Date: 05/27/24 Order Info: 07 - CMP Order Info: [id number] - LIPID Result Comment: Afri can [place] GFR Calc Performed By: #### L 500.4100, L506.1000, L100.0100, L509.1000, L500.4050 #### [facility] [address] [place], [address] GAP 1 Low 5-15 [facility] Comment on above: Order Comment: Order Date: 05/27/24 Order Info: 0786 - CMP Order Info: [id number] - LIPID Performed By: #### L 500.4100, L506.1000, L100.0100, L509.1000, L500.4050 #### [facility] [address] [place], [address] GFR/1.73 sq M.predicted among non-blacks MDRD (S/P/Bld) [Vol rate/Area] 56 mL/min/{1.73_m2} Low >60 [facility] Comment on above: Order Comment: Order Date: 05/27/24 Order Info: 0786 - CMP Order Info: [id number] - LIPID Result Comment: Non- GFR Calc Performed By: #### L 500.4100, L506.1000, L100.0100, L509.1000, L500.4050 #### [facility] [address] [place], [address] Globulin (S) [Mass/Vol] 3.2 g/dL Normal 2.2-4.2 [facility] Comment on above: Order Comment: Order Date: 05/27/24 Order Info: [id number] - CMP Order Info: [id number] - LIPID Performed By: #### L 500.4100, L506.1000, L100.0100, L509.1000, L500.4050 #### [facility] [address] [place], [address] Glucose [Mass/Vol] 90 mg/dL Normal 74-106 [facility] Comment on above: Order Comment: Order Date: 05/27/24 Order Info: 07 - CMP Order Info: [id number] - LIPID Performed By: #### L 500.4100, L506.1000, L100.0100, L509.1000, L500.4050 #### [facility] [address] [place], [address] Potassium [Moles/Vol] 4.2 mmol/L Normal 3.5-5.1 [facility] Comment on above: Order Comment: Order Date: 05/27/24 Order Info: 0786- - CMP Order Info: [id number] - LIPID Performed By: #### L 500.4100, L506.1000, L100.0100, L509.1000, L500.4050 #### [facility] [address] [place], [address] Sodium [Moles/Vol] 142 mmol/L Normal 136-145 [facility] Comment on above: Order Comment: Order Date: 05/27/24 Order Info: 0786- - CMP Order Info: [id number] - LIPID Performed By: #### L 500.4100, L506.1000, L100.0100, L509.1000, L500.4050 #### [facility] [address] [place], [address] T PROT 6.9 g/dL Normal 6.4-8.2 [facility] Comment on above: Order Comment: Order Date: 05/27/24 Order Info: [id number] - CMP Order Info: [id number] - LIPID Performed By: #### L 500.4100, L506.1000, L100.0100, L509.1000, L500.4050 #### [facility] [address] [place], [address] Urea nitrogen [Mass/Vol] 23 mg/dL High 7-18 [facility] Comment on above: Order Comment: Order Date: 05/27/24 Order Info: 0786- - CMP Order Info: [id number] - LIPID Performed By: #### L 500.4100, L506.1000, L100.0100, L509.1000, L500.4050 #### [facility] [address] [place], [place], [address] Lipid Profileon 09-15-2024 Cholesterol [Mass/Vol] 111 mg/dL Normal 200 [facility] Comment on above: Order Comment: Order Date: 05/27/24 Order Info: [id number] - CMP Order Info: [id number] - LIPID Result Comment: <200 mg/dL Desirable 200-240 mg/dL Borderline >240 mg/dL High Risk Performed By: #### L 500.4100, L506.1000, L100.0100, L509.1000, L500.4050 #### [facility] [address] [place], [address] Cholesterol in HDL [Mass/Vol] 47 mg/dL Normal [facility] Comment on above: Order Comment: Order Date: 05/27/24 Order Info: [id number] - CMP Order Info: [id number] - LIPID Result Comment: The drugs N-Acetylcysteine and Metamizole may falsely depress this assay. Reference Range HDL <40 mg/dL Low HDL Cholesterol HDL >or= 60 mg/dL High HDL Cholesterol Performed By: #### L 500.4100, L506.1000, L100.0100, L509.1000, L500.4050 #### [facility] [address] [place], [address] Cholesterol in LDL [Mass/Vol] 47 mg/dL Normal 0-130 [facility] Comment on above: Order Comment: Order Date: 05/27/24 Order Info: [id number] - CMP Order Info: [id number] - LIPID Performed By: #### L 500.4100, L506.1000, L100.0100, L509.1000, L500.4050 #### [facility] [address] [place], [address] Cholesterol in VLDL [Mass/Vol] 17 mg/dL Normal 5-40 [facility] Comment on above: Order Comment: Order Date: 05/27/24 Order Info: [id number] - CMP Order Info: [id number] - LIPID Performed By: #### L 500.4100, L506.1000, L100.0100, L509.1000, L500.4050 #### [facility] [address] [place], [address] Triglyceride [Mass/Vol] 85 mg/dL Normal [facility] Comment on above: Order Comment: Order Date: 05/27/24 Order Info: [id number] - CMP Order Info: [id number] - LIPID Result Comment: The drugs N-Acetylcysteine and Metamizole may falsely depress this assay. Serum Triglycerides Reference Interval Normal <150 mg/dL Borderline high 150 - 199 mg/dL High 200 - 499 mg/dL Very High > or = 500 mg/dL Performed By: #### L 500.4100, L506.1000, L100.0100, L509.1000, L500.4050 #### [facility] [address] [place], [address] Orthopedic Visit Reporton Orthopedic Visit Report [facility] [facility] [address] [place] [address] [address] [place] [address] OFFICE VISIT Date of Service: 09/15/24 MR#: [id number] Acct: [id number] Name: PILAR PERSAUD Rep #: [id number] : 1955 Provider: Dr. Yadiel sykes, Age/Sex: 69/F Location: [facility] [place] Status: Signed Intake Vital Signs 08/13/24 10:50 Height 5 ft 7 in Intake Visit Reasons: left hip Chief Complaint: left hip Accompanied by: Self Allergies green tea Allergy (Verified 09/15/24 10:16) PT UNSURE OF REACTION orange juice Allergy (Verified 09/15/24 10:16) Unknown nickel Adverse Reaction (Severe, Verified 09/15/24 10:16) Rash Medications ???Medication ???Instructions ???Recorded ???Confirmed ???Type cholecalciferol (vitamin D3) 50 50 mcg PO DAILY 09/22/21 09/15/24 History mcg (2,000 unit) capsule oxaprozin 600 mg tablet 600 mg PO BID 09/22/21 09/15/24 History cyclobenzaprine 10 mg tablet 10 mg PO HS 11/11/21 09/15/24 History oxymetazoline 0.05 % nasal spray 1 spray intranasal ONCE PRN DRY 11/11/21 09/15/24 History (12 Hour Nasal Relief [place]) NOSE aspirin 81 mg tablet 81 mg PO DAILY 11/30/21 09/15/24 History atorvastatin 40 mg tablet 40 mg PO QHS 11/30/21 09/15/24 History famotidine 20 mg tablet 20 mg PO DAILY #90 tabs 07/24/22 09/15/24 Rx estradiol 0.01% (0.1 mg/gram) See Rx Instructions vaginal 02/13/23 09/15/24 Rx vaginal cream .COMPLEX #42.5 grams oxyquinoline 0.025 %-sodium lauryl See Rx Instructions vaginal 08/13/24 09/15/24 Rx sulfate 0.01 % vaginal gel .COMPLEX #113.4 grams (Trimo-Wallis Jelly) denosumab 60 mg/mL subcutaneous 60 mg subcut [id number] 08/25/24 09/15/24 History syringe (Prolia) Have you fallen in the past year?: No PFSH Medical History Marijuana use Restless legs Heartburn Hiatal hernia Wears glasses Alcohol use High cholesterol Back pain Smoker Chronic cough Leg cramps History of irregular heartbeat Acid reflux Constipation Arthritis Dysphagia injection in hip Surgical History S/P hernia repair History of endoscopy History of colonoscopy History of appendectomy History of cataract surgery History of tubal ligation Family History Mother Diabetes Heart disease Hypertension High cholesterol Sister Diabetes Heart disease High cholesterol Hypertension Father Diabetes Daughter Thyroid disorder Social History household members: spouse and other details: grandson number of children: 2 current occupational status: retired history of recent travel: No Smoking Status: Current every day smoker tobacco type: cigarettes alcohol intake: current alcohol intake frequency: a few times a month details: socially substance use type: does not use what type of physical activity do you participate in: none seatbelt use: always do you feel safe at home: Yes additional social history: - Isaak SANCHES left hip Details: This documentation accurately reflects the service provided and the decisions made by me, Dr. Yadiel Quinn, DO 09/15/24 0751. Part of today???s visit was documented by Pam FUENTES, acting as scribe. PILAR PERSAUD is a 69 year old F 09/15/2024 :here today for a f/u after seeing Dr. Black. She states that Dr. Black advised her to proceed with the hip first. She would like to discuss hip replacement today. She continues to smoke a pack a day. She tried quitting this morning and went for [address] hour. 09/05/2024 Dr. Black office visit note: Explained imaging findings in detail. Given her most significant pain being in her left groin and imaging findings, recommend that her left hip take priority before any back surgical recommendations. Her lower back MRI findings seem worse stenosis on the right than the left. She does have left lower extremity radiculopathy which could be explained by the instability at L4-5. Explained to her that her claudication is likely related to the lower back as well as the posterior hip pain and also related to the back, however her groin pain and hip movement pain and pain with weightbearing is from her hip arthritis. Discussed pain management injections for her back however at this time, she wishes to see Dr. Quinn again to discuss a left hip replacement. She will follow for her back on an as needed basis. Patient is in agreement. 08/25/2024:here today for continued pain. Patient complains of pain into her low back and groin. She notes that her groin is worse. She denies constant groin pain. Patient completed physical therapy and felt better after doing physical therapy. She continued to do her home exercise program (more content not included)... Normal [facility] PTHINon 09-15-2024 PTH 78.3 pg/mL Normal 18.4-80.1 [facility] Comment on above: Order Comment: Order Date: 05/27/24 Order Info: [id number] - PTHIN Performed By: #### L 500.4100, L506.1000, L100.0100, L509.1000, L500.4050 #### [facility] [address] [place], [address] Protein+Creatinine Ratio,Uri neon 09-15-2024 PROT:CRE RATIO 82 mg/g CRE Normal 0-200 [facility] Comment on above: Performed By: #### L 501.0900 #### [facility] [address] [place], [address] Protein (U) [Mass/Vol] 9.1 mg/dL Normal <11.9 [facility] Comment on above: Performed By: #### L 501.0900 #### [facility] [address] [place], [address] UR CREAT 111.00 mg/dL Normal NO RANGE EST. [facility] Comment on above: Performed By: #### L 501.0900 #### [facility] [address] [place], [address] Vitamin D,25 Hydroxyon 09-15 Vitamin D 25-OH 85.6 ng/mL Normal [facility] Comment on above: Order Comment: Order Date: 05/27/24 Order Info: [id number] - VITD25 Result Comment: Nona min D 25(OH) Status Range Deficiency <20 ng/mL (50nmol/L) Insufficiency 20 - 30 ng/mL (50 - 75 nmol/L) Sufficiency 30 - 100 ng/mL (75 - 250 nmol/L) Toxicity >100 ng/mL (>250 nmol/L) Performed By: #### L 500.4100, L506.1000, L100.0100, L509.1000, L500.4050 #### [facility] [address] [facility] [place], [address] L/S Spine Min 4 Viewson L/S Spine Min 4 Views [facility] [address] [place] [address] L/S Spine Min 4 Views MR#: [id number] Acct: [id number] Name: PILAR PERSAUD Rep #: [id number] : 1955 F 69 From: Imani bee MD PCP: Dr. Anastacio Lloyd MD Status: DEP AMB Study: L/S Spine Min 4 Views Date of Exam: 09/05/24 Exam# [id number] Ordering Dr: Cailin Sumner [id number] HISTORY: low back pain -- please do upright AP, LAT, flex/ext. TECHNIQUE: XR Spine Lumbar Min 4 Views. COMPARISON: 12/06/2022. FINDINGS: VERTEBRAE: Vertebral body heights preserved. Degenerative changes of the posterior elements with facet arthropathy. ALIGNMENT: Chronic mild anterolisthesis of L4-5. INTERVERTEBRAL DISCS: Degenerative endplate changes with intervertebral disc space narrowing, mild at L3-4 and moderate at L4-5 and L5-S1. SOFT TISSUES: Moderate stool in the colon. Mild 3.4 cm aneurysmal dilatation of the distal abdominal aorta again seen. RAD/L/S Spine Min 4 Views IMPRESSION: No acute fracture or dislocation identified in the lumbar spine. Multilevel degenerative change. Mild abdominal aortic aneurysm. Electronically Signed: Imani Harrell MD at 11:06 EDT Reading Location ID and State: [facility] / [place] Tel , Service support , CC: DON Calderon; Dr. Anastacio Lloyd MD Global Director Air And Climate Change: Signed Normal [facility] Orthopedic Visit Reporton Orthopedic Visit Report [facility] [address] [place] [address] [address] [place] [address] OFFICE VISIT Date of Service: 09/05/24 MR#: [id number] Acct: [id number] Name: PILAR PERSAUD Rep #: [id number] : 1955 Provider: Dr. Chi Black MD Age/Sex: 69/F Location: [facility] [place] Status: Signed Intake Vital Signs 08/13/24 10:50 Height 5 ft 7 in Intake Visit Reasons: LUMBAR SPINE Chief Complaint: lumbar spine Accompanied by: Self Is patient in pain?: No Allergies green tea Allergy (Verified 09/05/24 07:59) PT UNSURE OF REACTION orange juice Allergy (Verified 09/05/24 07:59) Unknown nickel Adverse Reaction (Severe, Verified 09/05/24 07:59) Rash Medications ???Medication ???Instructions ???Recorded ???Confirmed ???Type cholecalciferol (vitamin D3) 50 50 mcg PO DAILY 09/22/21 09/05/24 History mcg (2,000 unit) capsule oxaprozin 600 mg tablet 600 mg PO BID 09/22/21 09/05/24 History cyclobenzaprine 10 mg tablet 10 mg PO HS 11/11/21 09/05/24 History oxymetazoline 0.05 % nasal spray 1 spray intranasal ONCE PRN DRY 11/11/21 09/05/24 History (12 Hour Nasal Relief [place]) NOSE aspirin 81 mg tablet 81 mg PO DAILY 11/30/21 09/05/24 History atorvastatin 40 mg tablet 40 mg PO QHS 11/30/21 09/05/24 History famotidine 20 mg tablet 20 mg PO DAILY #90 tabs 07/24/22 09/05/24 Rx estradiol 0.01% (0.1 mg/gram) See Rx Instructions vaginal 02/13/23 09/05/24 Rx vaginal cream .COMPLEX #42.5 grams oxyquinoline 0.025 %-sodium lauryl See Rx Instructions vaginal 08/13/24 09/05/24 Rx sulfate 0.01 % vaginal gel .COMPLEX #113.4 grams (Trimo-Wallis Jelly) denosumab 60 mg/mL subcutaneous 60 mg subcut [id number] 08/25/24 09/05/24 History syringe (Prolia) Have you fallen in the past year?: No PFSH Medical History Marijuana use Restless legs Heartburn Hiatal hernia Wears glasses Alcohol use High cholesterol Back pain Smoker Chronic cough Leg cramps History of irregular heartbeat Acid reflux Constipation Arthritis Dysphagia injection in hip Surgical History S/P hernia repair History of endoscopy History of colonoscopy History of appendectomy History of cataract surgery History of tubal ligation Family History Mother Diabetes Heart disease Hypertension High cholesterol Sister Diabetes Heart disease High cholesterol Hypertension Father Diabetes Daughter Thyroid disorder Social History household members: spouse and other details: grandson number of children: 2 current occupational status: retired history of recent travel: No Smoking Status: Current every day smoker tobacco type: cigarettes alcohol intake: current alcohol intake frequency: a few times a month details: socially substance use type: does not use what type of physical activity do you participate in: none seatbelt use: always do you feel safe at home: Yes additional social history: - Isaak MYRON LUMBAR SPINE Details: This documentation accurately reflects the service provided and the decisions made by me, Dr. Chi Black MD 09/05/24 0751. Part of today???s visit was documented by Nany Jarrell LPN, acting as scribe. PILAR PERSAUD is a 69 year old F here today for lumbar spine pain. She was seen by Dr. Quinn for left hip pain and had an MRI and was refereed for evaluation of her lumbar spine. No plans for a hip replacement yet. Says her groin pain is more bothersome compared to her back. She reports a 5 year history of left low back and hip pain that has progressively been getting worse. Says that her pain extends down her left anterior thigh to her knee. She does report numbness and burning in her left leg that extends into her toes. She denies previous injury or surgery to her low back. Pain with walking and a decreased walking distance. She can only walk about 2-3 blocks before needing to sit down. She has done PT in the past and it was helpful. She tries to do the PT exercises that she learned at home but reports the pain prevents her from doing. She has seen pain management before for hip injections and reports they have been helpful. 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 She is on Prolia for bone density. Ortho Exam General General: Yes no acute distress Neurologic: Yes alert and Yes oriented x3 Spine SPINE TESTING CERVICAL THORACIC LUMBAR Musculoskeletal Strength 0=absent - 5=normal Details: Neurological exam of the lower extremities shows 5x5 power. Normal sensations across all dermatomes. No hyperreflexia. No midline or paraspinal tenderness. Coding Level of Care Code Off vis, (more content not included)... Normal [facility] Spine Lumbar (Routine)on Spine Lumbar (Routine) [facility] Imaging Services [address] [place], [place] [address] Spine Lumbar (Routine) MR#: [id number] Acct: [id number] Name: PILAR PERSAUD Rep #: [id number] : 1955 F 69 From: Imani bee MD PCP: Dr. Anastacio Lloyd MD Status: [facility] Study: Spine Lumbar (Routine) Date of Exam: 09/01/24 Exam# [id number] Ordering Dr: Yadiel Quinn DO [id number] HISTORY: Low back pain, left leg pain. TECHNIQUE: Multiplanar and multisequence MR images of the lumbar spine were obtained without intravenous contrast. 161 images. COMPARISON: XR 12/06/2022. FINDINGS: VERTEBRAE: Vertebral body heights maintained. Vertebral body hemangiomas incidentally noted at T12 and L4. Mild degenerative endplate changes at L3-4, L4-5, and L5-S1. ALIGNMENT: Chronic mild anterolisthesis of L4-5. CONUS: Normal morphology and position of the conus medullaris at the lower T12 level. INTERVERTEBRAL DISCS: T12-L1: Minimal disc bulge without significant central canal stenosis or foraminal narrowing based on the sagittal images. L1-2: Mild disc bulge with superimposed right subarticular and foraminal disc protrusion and facet arthropathy resulting in minimal narrowing of the thecal sac and mild right foraminal narrowing. L2-3: Mild disc bulge with facet arthropathy resulting in mild central canal stenosis and bilateral foraminal narrowing. L3-4: Mild disc bulge with facet arthropathy resulting in mild central canal stenosis, mild left foraminal narrowing, and moderate right foraminal narrowing with right L3 nerve root abutment/impingement. L4-5: Mild disc bulge with facet arthropathy resulting in mild central canal stenosis and bilateral foraminal narrowing. L5-S1: Mild disc bulge with facet arthropathy resulting in mild bilateral foraminal narrowing. No significant central canal stenosis. SOFT TISSUES: No paraspinal fluid collection. Mild posterior subcutaneous edema. Distended urinary bladder. MRI/Spine Lumbar (Routine) IMPRESSION: Multilevel degenerative disc disease as above. Electronically Signed: Imani Harrell MD at 15:19 EDT Reading Location ID and State: [facility] / [place] Tel , Service support , CC: Dr. Anastacio Lloyd MD; Dr. Yadiel Quinn DO Global Director Air And Climate Change: Signed Normal [facility] Orthopedic Visit Reporton Orthopedic Visit Report [facility] [address] [place] [address] [address] [place] [id number] OFFICE VISIT Date of Service: 08/25/24 MR#: [id number] Acct: [id number] Name: PILAR PERSAUD Rep #: [id number] : 1955 Provider: Dr. Yadiel sykes DO Age/Sex: 69/F Location: [facility] [place] Status: Signed Intake Vital Signs 02/18/24 11:06 08/11/24 15:24 08/13/24 10:50 Height 5 ft 7 in 5 ft 7 in 5 ft 7 in Intake Visit Reasons: LEFT HIP Accompanied by: Self Is patient in pain?: Yes Allergies green tea Allergy (Verified 08/25/24 10:54) PT UNSURE OF REACTION orange juice Allergy (Verified 08/25/24 10:54) Unknown nickel Adverse Reaction (Severe, Verified 08/25/24 10:54) Rash Medications ???Medication ???Instructions ???Recorded ???Confirmed ???Type cholecalciferol (vitamin D3) 50 50 mcg PO DAILY 09/22/21 08/25/24 History mcg (2,000 unit) capsule oxaprozin 600 mg tablet 600 mg PO BID 09/22/21 08/25/24 History cyclobenzaprine 10 mg tablet 10 mg PO HS 11/11/21 08/25/24 History oxymetazoline 0.05 % nasal spray 1 spray intranasal ONCE PRN DRY 11/11/21 08/25/24 History (12 Hour Nasal Relief [place]) NOSE aspirin 81 mg tablet 81 mg PO DAILY 11/30/21 08/25/24 History atorvastatin 40 mg tablet 40 mg PO QHS 11/30/21 08/25/24 History famotidine 20 mg tablet 20 mg PO DAILY #90 tabs 07/24/22 08/25/24 Rx estradiol 0.01% (0.1 mg/gram) See Rx Instructions vaginal 02/13/23 08/25/24 Rx vaginal cream .COMPLEX #42.5 grams oxyquinoline 0.025 %-sodium lauryl See Rx Instructions vaginal 08/13/24 08/25/24 Rx sulfate 0.01 % vaginal gel .COMPLEX #113.4 grams (Trimo-Wallis Jelly) denosumab 60 mg/mL subcutaneous 60 mg subcut [id number] 08/25/24 08/25/24 History syringe (Prolia) Have you fallen in the past year?: No PFSH Medical History Marijuana use Restless legs Heartburn Hiatal hernia Wears glasses Alcohol use High cholesterol Back pain Smoker Chronic cough Leg cramps History of irregular heartbeat Acid reflux Constipation Arthritis Dysphagia injection in hip Surgical History S/P hernia repair History of endoscopy History of colonoscopy History of appendectomy History of cataract surgery History of tubal ligation Family History Mother Diabetes Heart disease Hypertension High cholesterol Sister Diabetes Heart disease High cholesterol Hypertension Father Diabetes Daughter Thyroid disorder Social History household members: spouse and other details: grandson number of children: 2 current occupational status: retired history of recent travel: No Smoking Status: Current every day smoker tobacco type: cigarettes alcohol intake: current alcohol intake frequency: a few times a month details: socially substance use type: does not use what type of physical activity do you participate in: none seatbelt use: always do you feel safe at home: Yes additional social history: - Isaak SANCHES LEFT HIP Details: This documentation accurately reflects the service provided and the decisions made by me, Dr. Yadiel Quinn, DO 08/25/24 0815. Part of today???s visit was documented by [ ], acting as scribe. PILAR PERSAUD is a 69 year old F 08/25/2024:here today for continued pain. Patient complains of pain into her low back and groin. She notes that her groin is worse. She denies constant groin pain. Patient completed physical therapy and felt better after doing physical therapy. She continued to do her home exercise program and now her pain is so bad she is unable to do her exercises. Patient states that she has increased low back pain with ambulating or lifting. She complains of numbness and tingling into her left toes. Patient has started prolia with her PCP and she started to have leg pain about 3 days after she started the medication. She denies any epidural injections. She had hip injections which were helpful for over a year, she had another injection at [facility] and that wasnt helpful. She continues to smoke a pack per day. 01/17/2023 office visit: here today for 6 week f/u after physical therapy. States that she is doing much better and doesn't have any pain, pain is 0/10. States that it helped with her hip and low back pain. States she only gets low back pain occasionally when doing things around the house. Her pain has subsided after completion of PT. She was given a HEP and will continue with the HEP. She can return if her pain returns. Follow up as needed 12/06/2022 visit: 67 year old F NEW patient referral from Dr. Lloyd here today for left hip pain that she has had for (more content not included)... 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 Office Visit Report [facility] [address], [address] [place] [address] OFFICE VISIT Date of Service: 08/13/24 MR#: [id number] Acct: [id number] Name: PILAR PERSAUD Rep #: [id number] : 1955 Provider: DEBBIE basilio Age/Sex: 69/F Location: [facility] [place] Status: Signed Intake Vital Signs 02/18/24 11:06 08/11/24 15:24 08/13/24 10:43 08/13/24 10:50 Height 5 ft 7 in 5 ft 7 in 5 ft 7 in 5 ft 7 in Weight: 174 lb 4 oz BMI 27.3 BP 124/82 H Intake Visit Reasons: pessary check Chief Complaint: 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 check 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 Is patient in pain?: No Allergies green tea Allergy (Verified 08/13/24 10:43) PT UNSURE OF REACTION orange juice Allergy (Verified 08/13/24 10:43) Unknown nickel Adverse Reaction (Severe, Verified 08/13/24 10:43) Rash Medications ???Medication ???Instructions ???Recorded ???Confirmed ???Type cholecalciferol (vitamin D3) 50 50 mcg PO DAILY 09/22/21 08/13/24 History mcg (2,000 unit) capsule oxaprozin 600 mg tablet 600 mg PO BID 09/22/21 08/13/24 History cyclobenzaprine 10 mg tablet 10 mg PO HS 11/11/21 08/13/24 History oxymetazoline 0.05 % nasal spray 1 spray intranasal ONCE PRN DRY 11/11/21 08/13/24 History (12 Hour Nasal Relief [place]) NOSE aspirin 81 mg tablet 81 mg PO DAILY 11/30/21 08/13/24 History atorvastatin 40 mg tablet 40 mg PO QHS 11/30/21 08/13/24 History famotidine 20 mg tablet 20 mg PO DAILY #90 tabs 07/24/22 08/13/24 Rx estradiol 0.01% (0.1 mg/gram) See Rx Instructions vaginal 02/13/23 08/13/24 Rx vaginal cream .COMPLEX #42.5 grams oxyquinoline 0.025 %-sodium lauryl See Rx Instructions vaginal 08/13/24 08/13/24 Rx sulfate 0.01 % vaginal gel .COMPLEX #113.4 grams (Trimo-Wallis Jelly) Is last menstrual period known: No Post menopausal: Yes Patient : No : No [facility] Medical History Marijuana use Restless legs Heartburn Hiatal hernia Wears glasses Alcohol use High cholesterol Back pain Smoker Chronic cough Leg cramps History of irregular heartbeat Acid reflux Constipation Arthritis Dysphagia injection in hip Surgical History S/P hernia repair History of endoscopy History of colonoscopy History of appendectomy History of cataract surgery History of tubal ligation Family History Mother Diabetes Heart disease Hypertension High cholesterol Sister Diabetes Heart disease High cholesterol Hypertension Father Diabetes Daughter Thyroid disorder Social History household members: spouse and other details: grandson number of children: 2 current occupational status: retired history of recent travel: No Smoking Status: Current every day smoker tobacco type: cigarettes alcohol intake: current alcohol intake frequency: a few times a month details: socially substance use type: does not use what type of physical activity do you participate in: none seatbelt use: always do you feel safe at home: Yes additional social history: - Isaak MYRON pessary check Details: PILAR PERSAUD is a 69 year old who presents for discussion of possible worsening of cystocele. She does self care of #5 ring pessary with support. She took it out yesterday to clean and forgot to replace it today so she does not have it. She states she sometimes feels tissue around edge of pessary. It does not fall out. She denies pain, bleeding or discharge. She is happy with this pessary. She is rarely sexually active but has been in past year History 3 Elective abortions Hx Para 2 Spontaneous abortions Hx # Term Pregnancies Ectopic pregnancies Hx # Pregnancies Multiple births # of living children 2 ROS Const Constitutional: Reports system reviewed and no additional complaints, except as documented Eyes Eyes: Reports system reviewed and no additional complaints, except as documented GI GI: Denies abdominal pain or change in bowel habits : Reports as per HPI Exam Const General: cooperative, healthy appearing, no acute distress and well developed Orientation: alert, oriented to person and oriented to place Resp Effort Inspection: normal respiratory effort External Female Exam: normal external appearance and normal appearance of the urethra Urethra: normal appearance of the urethra and normal palpation Speculum Exam - Vagina: normal appearance of the vagina and normal vaginal discharge Speculum Exam - Cervix: normal appearance of the cervix Bimanual Exam- Vagina Uterus: normal bimanual exam, uterine size normal, uterine shape normal and non (more content not included)... Normal [facility] Low Dose CT Lung Screeningon 06-06-[address] Lung Screening [facility] Imaging Services [address] [place] [id number] Lung Screening MR#: [id number] Acct: [id number] Name: PILAR PERSAUD Rep #: [id number] : 1955 F 68 From: Fidencio Phillips MD PCP: Dr. Anastacio Lloyd MD Status: [facility] Study: Low Dose CT Lung Screening Date of Exam: 06/06 Exam# [id number] Ordering Dr: Anastacio Lloyd MD [id number] EXAM: CT CHEST, LUNG CANCER SCREENING WITHOUT INTRAVENOUS CONTRAST CLINICAL INDICATION: smoker TECHNIQUE: Helically acquired images were obtained of the chest without intravenous contrast using low dose (LDCT) lung cancer screening protocol. This CT exam was performed using one or more of the following dose reduction techniques: automated exposure control, adjustment of the mA and/or kV according to patient size, and/or use of iterative reconstruction technique. COMPARISON: CT Lung Cancer Screening dated 06/04/2023 FINDINGS: LUNGS AND PLEURAL SPACES: Mild diffuse centrilobular pulmonary emphysema. No evidence of a lung mass or nodule. No pleural effusion or pneumothorax. HEART: Normal. No pericardial effusion. Normal heart size. Coronary artery calcification is present. MEDIASTINUM: Normal. No mediastinal or hilar adenopathy. Esophagus is unremarkable. No hiatal hernia. THYROID: Normal. No thyroid nodules or calcification. BONES/JOINTS: No suspicious lytic or blastic abnormality. VASCULATURE: No aortic aneurysm. LYMPH NODES: Normal. No enlarged lymph nodes. CT/Low Dose CT Lung Screening IMPRESSION: 1. No evidence of a lung mass or nodule. 2. Mild pulmonary emphysema. Lung-RADS score: 1S - Negative. Additional clinically significant or potentially clinically significant findings are described. Recommend continued annual screening with a low-dose CT (LDCT) in 12 months. Electronically Signed: Fidencio Phillips MD at 17:00 EDT , CC: Dr. Anastacio Lloyd MD Global Director Air And Climate Change: Signed Normal [facility] Dexa Bone Density Studyon Dexa Bone Density Study [facility] Imaging Services [address] [place] [id number] Dexa Bone Density Study MR#: [id number] Acct: [id number] Name: PILAR PERSAUD Rep #: [id number] : 1955 F 68 From: Raghavendra elias MD PCP: Dr. Anastacio Lloyd MD Status: [facility] Study: Dexa Bone Density Study Date of Exam: 06/04/24 Exam# [id number] Ordering Dr: Anastacio Lloyd MD [id number] STUDY: DUAL ENERGY X-RAY ABSORPTIOMETRY / DXA REASON FOR EXAM: Female, 68 years old. 733.00OsteoporosisBONE DENSITY REASON FOR EXAM TECHNIQUE: Bone Mineral Density (BMD) measurements of lumbar spine and bilateral hips were obtained. COMPARISON: Comparison is made with prior study May 23, 2022. FINDINGS: Lumbar Spine (L1-L4): g/cm2 (0.650) / T-score (-3.0) / Z-score (-1.4) Findings are suggestive of osteoporosis with a high fracture risk. Left Femur Total: g/cm2 (0.795) / T-score (-1.2) / Z-score (0.2) Left Femoral Neck: g/cm2 (0.730) / T-score (-1.1) / Z-score (0.7) Right Femur Total: g/cm2 (0.727) / T-score (-1.8) / Z-score (-0.3) Right Femoral Neck: g/cm2 (0.587) / T-score (-2.4) / Z-score (-0.6) The T-Scores on the most recent prior examination were: Lumbar Spine (L1-L4): There has been worsening of bone density since the previous examination. Left Femur Total: which represents a worsening of 0.8%. Right Femur Total: which represents a worsening of 1.5%. BD/Dexa Bone Density Study IMPRESSION: The patient is considered osteoporotic as outlined below according to World Honorio Organization (WHO) criteria with a high fracture risk. There has been worsening of bone density since the previous examination. Reference Information: The T-score is the number of standard deviations above or below the standard which is normal for young adults at their peak bone mineral density. The World Health Organization (WHO) interprets the T-scores as follows: Above -1 Normal bone density Between -1 and -2.5 Osteopenia Equal to / or below -2.5 Osteoporosis As a practical clinical guideline, osteopenia may be graded as follows: Mild -1 through -1.5 Moderate -1.6 through -2.0 Severe -2.1 through -2.4 The Z-score is the number of standard deviations above or below age-matched controls. A Z-score of less than -1.5 would be considered abnormal. References: 1. NIH Osteoporosis and Related Bone Diseases www osteo.org 2. International Society for Clinical Densitometry www iscd.org 3. National Osteoporosis Foundation www nof.org Electronically Signed: Raghavendra Mobley MD at 14:40 EDT , CC: Dr. Anastacio Lloyd MD Global Director Air And Climate Change: Signed Normal [facility] CBC W/Diff, Automatedon 05-06 Absolute Lymph 1.38 X10 3/uL Normal 0.83-4.51 [facility] Comment on above: Order Comment: Order Date: 05/27/24Order Info: 0184- - CBCD Performed By: #### L 501.0900 #### [facility] [address] [place], [address] Absolute Neut 4.2 X10 3/uL Normal 2.0-7.7 [facility] Comment on above: Order Comment: Order Date: 05/27/24Order Info: 0184-1 - CBCD Performed By: #### L 501.0900 #### [facility] [address] [place], [address] Basophils/100 WBC (Bld) 0.6 % Normal 0-1 [facility] Comment on above: Order Comment: Order Date: 05/27/24Order Info: 0184-1 - CBCD Performed By: #### L 501.0900 #### [facility] [address] [place], [address] Eosinophils/100 WBC (Bld) 2.1 % Normal 0-5 [facility] Comment on above: Order Comment: Order Date: 05/27/24Order Info: 0184-1 - CBCD Performed By: #### L 501.0900 #### [facility] [address] [place], [address] Erythrocyte distribution width (RBC) [Ratio] 12.6 % Normal 11.6-14.6 [facility] Comment on above: Order Comment: Order Date: 05/27/24Order Info: 018- - CBCD Performed By: #### L 501.0900 #### [facility] [address] [place], [address] Hematocrit (Bld) [Volume fraction] 38.8 % Normal 37-47 [facility] Comment on above: Order Comment: Order Date: 05/27/24Order Info: 018- - CBCD Performed By: #### L 501.0900 #### [facility] [address] [place], [address] Hemoglobin (Bld) [Mass/Vol] 12.3 g/dL Normal 12.0-15.0 [facility] Comment on above: Order Comment: Order Date: 05/27/24Order Info: 018- - CBCD Performed By: #### L 501.0900 #### [facility] [address] [place], [address] IG% 0.300 Normal 0.0-0.9 [facility] Comment on above: Order Comment: Order Date: 05/27/24Order Info: 018- - CBCD Result Comment: IG% - Immature Granulocytes (promyelocytes, myelocytes and metamyelocytes) > 1% indicates that a LEFT SHIFT is Present. Performed By: #### L 501.0900 #### [facility] [address] [place], [address] Lymphocytes/100 WBC (Bld) 22.1 % Normal 19-41 [facility] Comment on above: Order Comment: Order Date: 05/27/24Order Info: 0184-1 - CBCD Performed By: #### L 501.0900 #### [facility] [address] [place], [address] MCH (RBC) [Entitic mass] 30.8 pg Normal 27.0-32.0 [facility] Comment on above: Order Comment: Order Date: 05/27/24Order Info: 4-1 - CBCD Performed By: #### L 501.0900 #### [facility] [address] [place], [address] MCHC (RBC) [Mass/Vol] 31.7 g/dL Low 32-36 [facility] Comment on above: Order Comment: Order Date: 05/27/24Order Info: 183- - CBCD Performed By: #### L 501.0900 #### [facility] [address] [place], [address] MCV (RBC) [Entitic vol] 97.2 fL Normal 81-99 [facility] Comment on above: Order Comment: Order Date: 05/27/24Order Info: 183- - CBCD Performed By: #### L 501.0900 #### [facility] [address] [place], [address] Monocytes/100 WBC (Bld) 8.3 % Normal 0-10 [facility] Comment on above: Order Comment: Order Date: 05/27/24Order Info: 018- - CBCD Performed By: #### L 501.0900 #### [facility] [address] [place], [address] Neutrophils/100 WBC (Bld) 66.6 % Normal 47-70 [facility] Comment on above: Order Comment: Order Date: 05/27/24Order Info: 018-1 - CBCD Performed By: #### L 501.0900 #### [facility] [address] [place], [address] Nucleated RBC (Bld) [#/Vol] 0 10*3/uL Normal 0-5 [facility] Comment on above: Order Comment: Order Date: 05/27/24Order Info: 0184-1 - CBCD Performed By: #### L 501.0900 #### [facility] [address] [place], [address] Platelet mean volume (Bld) [Entitic vol] 9.5 fL Normal 6.2-12.0 [facility] Comment on above: Order Comment: Order Date: 05/27/24Order Info: 0184-1 - CBCD Performed By: #### L 501.0900 #### [facility] [address] [place], [address] Platelets (Bld) [#/Vol] 272 10*3/uL Normal 150-450 [facility] Comment on above: Order Comment: Order Date: 05/27/24Order Info: 183- - CBCD Performed By: #### L 501.0900 #### [facility] [address] [place], [address] RBC (Bld) [#/Vol] 3.99 10*6/uL Low 4.2-5.4 [facility] Comment on above: Order Comment: Order Date: 05/27/24Order Info: 018- - CBCD Performed By: #### L 501.0900 #### [facility] [address] [place], [address] RDW SD 44.9 fl High 35.1-43.9 [facility] Comment on above: Order Comment: Order Date: 05/27/24Order Info: 0184-1 - CBCD Performed By: #### L 501.0900 #### [facility] [address] [place], [address] WBC (Bld) [#/Vol] 6.3 10*3/uL Normal 4.4-11.0 [facility] Comment on above: Order Comment: Order Date: 05/27/24Order Info: 018-1 - CBCD Performed By: #### L 501.0900 #### [facility] [address] [place], [address] Comprehensive Metabolic Prof ilon 05-27-2024 Albumin [Mass/Vol] 3.5 g/dL Normal 3.2-5.0 [facility] Comment on above: Order Comment: Order Date: 05/27/24Order Info: 0786-1 - CMPOrder Info: [id number] - LIPIDOrder Info: 2499-7 - TIBCOrder Info: 2498-4 - FEOrder Info: 2276-4 - FEROrder Info: 228-8 - FOLSN Performed By: #### L 501.0900 #### [facility] [address] [place], [address] Albumin/Globulin [Mass ratio] 1.1 {ratio} Normal 0.9-2.4 [facility] Comment on above: Order Comment: Order Date: 05/27/24Order Info: 86-1 - CMPOrder Info: [id number] - LIPIDOrder Info: 7 - TIBCOrder Info: 249-4 - FEOrder Info: 227-4 - FEROrder Info: 228-8 - FOLSN Performed By: #### L 501.0900 #### [facility] [address] [place], [address] ALK P 98 U/L Normal 45-117 [facility] Comment on above: Order Comment: Order Date: 05/27/24Order Info: 0786-1 - CMPOrder Info: [id number] - LIPIDOrder Info: 7 - TIBCOrder Info: 2498-4 - FEOrder Info: 2276-4 - FEROrder Info: 2284-8 - FOLSN Performed By: #### L 501.0900 #### [facility] [address] [place], [address] ALT [Catalytic activity/Vol] 29 U/L Normal 13-56 [facility] Comment on above: Order Comment: Order Date: 05/27/24Order Info: 0786-1 - CMPOrder Info: [id number] - LIPIDOrder Info: 7 - TIBCOrder Info: 2498-4 - FEOrder Info: 2276-4 - FEROrder Info: 228-8 - FOLSN Performed By: #### L 501.0900 #### [facility] [address] [place], [address] AST [Catalytic activity/Vol] 24 U/L Normal 15-37 [facility] Comment on above: Order Comment: Order Date: 05/27/24Order Info: 0786-1 - CMPOrder Info: [id number] - LIPIDOrder Info: 7 - TIBCOrder Info: 2498-4 - FEOrder Info: 2276-4 - FEROrder Info: 228-8 - FOLSN Performed By: #### L 501.0900 #### [facility] [address] [place], [address] Bilirubin [Mass/Vol] 0.50 mg/dL Normal 0.20-1.00 [facility] Comment on above: Order Comment: Order Date: 05/27/24Order Info: 0786-1 - CMPOrder Info: [id number] - LIPIDOrder Info: 2500-05 - TIBCOrder Info: 2498 - FEOrder Info: 2276-02 - FEROrder Info: 2283-8 - FOLSN Result Comment: For patients on eltrombopag therapy, use of Dimension [place] TBIL is not recommended. Performed By: #### L 501.0900 #### [facility] [address] [place], [address] BUN/CRE 19.1 RATIO Normal 10-20 [facility] Comment on above: Order Comment: Order Date: 05/27/24Order Info: 0786-1 - CMPOrder Info: [id number] - LIPIDOrder Info: 7 - TIBCOrder Info: 2498-4 - FEOrder Info: 2276-4 - FEROrder Info: 228-8 - FOLSN Performed By: #### L 501.0900 #### [facility] [address] [place], [address] CA,Total 9.7 mg/dL Normal 8.5-10.1 [facility] Comment on above: Order Comment: Order Date: 05/27/24Order Info: 0786-1 - CMPOrder Info: [id number] - LIPIDOrder Info: 2499-7 - TIBCOrder Info: 2498-4 - FEOrder Info: 2276-4 - FEROrder Info: 2284-8 - FOLSN Performed By: #### L 501.0900 #### [facility] [address] [place], [address] Chloride [Moles/Vol] 109 mmol/L High 98-107 [facility] Comment on above: Order Comment: Order Date: 05/27/24Order Info: 785-1 - CMPOrder Info: [id number] - LIPIDOrder Info: 7 - TIBCOrder Info: 2498-4 - FEOrder Info: 2276-4 - FEROrder Info: 228-8 - FOLSN Performed By: #### L 501.0900 #### [facility] [address] [place], [address] CO2 [Moles/Vol] 26.0 mmol/L Normal 21.0-32.0 [facility] Comment on above: Order Comment: Order Date: 05/27/24Order Info: 07- - CMPOrder Info: [id number] - LIPIDOrder Info: 7 - TIBCOrder Info: 2498-4 - FEOrder Info: 2276-4 - FEROrder Info: 2284-8 - FOLSN Performed By: #### L 501.0900 #### [facility] [address] [place], [address] Creatinine [Mass/Vol] 1.10 mg/dL High 0.55-1.02 [facility] Comment on above: Order Comment: Order Date: 05/27/24Order Info: 0786-1 - CMPOrder Info: [id number] - LIPIDOrder Info: 2500-7 - TIBCOrder Info: 2498-4 - FEOrder Info: 2276-4 - FEROrder Info: 2284-8 - FOLSN Result Comment: The validity of the calculated GFR GFRAA in patients over 70 years has not been determined. Clinical correlation is essential. Performed By: #### L 501.0900 #### [facility] [address] [place], [address] EST GFR - AA 63 mL/min Normal >60 [facility] Comment on above: Order Comment: Order Date: 05/27/24Order Info: 0786-1 - CMPOrder Info: [id number] - LIPIDOrder Info: 2500-7 - TIBCOrder Info: 2498-4 - FEOrder Info: 2276-4 - FEROrder Info: 228-8 - FOLSN Result Comment: Afri can Nigerian GFR Calc Performed By: #### L 501.0900 #### [facility] [address] [place], [address] GAP 7 Normal 5-15 [facility] Comment on above: Order Comment: Order Date: 05/27/24Order Info: 86-1 - CMPOrder Info: [id number] - LIPIDOrder Info: 2500-7 - TIBCOrder Info: 2498-4 - FEOrder Info: 2276-4 - FEROrder Info: 228-8 - FOLSN Performed By: #### L 501.0900 #### [facility] [address] [place], [address] GFR/1.73 sq M.predicted among non-blacks MDRD (S/P/Bld) [Vol rate/Area] 52 mL/min/{1.73_m2} Low >60 [facility] Comment on above: Order Comment: Order Date: 05/27/24Order Info: 0786-1 - CMPOrder Info: [id number] - LIPIDOrder Info: 2500-7 - TIBCOrder Info: 2498-4 - FEOrder Info: 2276-4 - FEROrder Info: 2284-8 - FOLSN Result Comment: Non- GFR Calc Performed By: #### L 501.0900 #### [facility] [address] [place], [address] Globulin (S) [Mass/Vol] 3.3 g/dL Normal 2.2-4.2 [facility] Comment on above: Order Comment: Order Date: 05/27/24Order Info: 0786-1 - CMPOrder Info: [id number] - LIPIDOrder Info: 2499-7 - TIBCOrder Info: 2498-4 - FEOrder Info: 2276-4 - FEROrder Info: 228-8 - FOLSN Performed By: #### L 501.0900 #### [facility] [address] [place], [address] Glucose [Mass/Vol] 96 mg/dL Normal 74-106 [facility] Comment on above: Order Comment: Order Date: 05/27/24Order Info: 785-1 - CMPOrder Info: [id number] - LIPIDOrder Info: 7 - TIBCOrder Info: [id number] - FEOrder Info: 2274 - FEROrder Info: 228-8 - FOLSN Performed By: #### L 501.0900 #### [facility] [address] [place], [address] Potassium [Moles/Vol] 3.9 mmol/L Normal 3.5-5.1 [facility] Comment on above: Order Comment: Order Date: 05/27/24Order Info: 0786-1 - CMPOrder Info: [id number] - LIPIDOrder Info: 7 - TIBCOrder Info: 2498-4 - FEOrder Info: 2276-4 - FEROrder Info: 228-8 - FOLSN Performed By: #### L 501.0900 #### [facility] [address] [place], [address] Sodium [Moles/Vol] 142 mmol/L Normal 136-145 [facility] Comment on above: Order Comment: Order Date: 05/27/24Order Info: 0786-1 - CMPOrder Info: [id number] - LIPIDOrder Info: 7 - TIBCOrder Info: 2498-4 - FEOrder Info: 2276-4 - FEROrder Info: 228-8 - FOLSN Performed By: #### L 501.0900 #### [facility] [address] [place], [address] T PROT 6.8 g/dL Normal 6.4-8.2 [facility] Comment on above: Order Comment: Order Date: 05/27/24Order Info: 0786-1 - CMPOrder Info: [id number] - LIPIDOrder Info: 2500-7 - TIBCOrder Info: 2498-4 - FEOrder Info: 2276-4 - FEROrder Info: 228-8 - FOLSN Performed By: #### L 501.0900 #### [facility] [address] [place], [address] Urea nitrogen [Mass/Vol] 21 mg/dL High 7-18 [facility] Comment on above: Order Comment: Order Date: 05/27/24Order Info: 0786-1 - CMPOrder Info: [id number] - LIPIDOrder Info: 2500-7 - TIBCOrder Info: 2498-4 - FEOrder Info: 2276-4 - FEROrder Info: 228-8 - FOLSN Performed By: #### L 501.0900 #### [facility] [address] [place], [address] Ferritinon 05-27-2024 Ferritin [Mass/Vol] 25 ng/mL Normal 8-252 [facility] Comment on above: Order Comment: Order Date: 05/27/24Order Info: 0786-1 - CMPOrder Info: [id number] - LIPIDOrder Info: 2500-7 - TIBCOrder Info: 2498-4 - FEOrder Info: 2276-4 - FEROrder Info: 228-8 - FOLSN Performed By: #### L 501.0900 #### [facility] [address] [place], [address] Folates, (Folic Acid)on 05-06 FOLATES 19.70 ng/mL Normal 3.1-55.4 [facility] Comment on above: Order Comment: Order Date: 05/27/24Order Info: 86-1 - CMPOrder Info: [id number] - LIPIDOrder Info: 2500-7 - TIBCOrder Info: 2498-4 - FEOrder Info: 2276-4 - FEROrder Info: 228-8 - FOLSN Performed By: #### L 501.0900 #### [facility] [address] [place], [address] Ironon 05-27-2024 Iron [Mass/Vol] 82 ug/dL Normal 50-170 [facility] Comment on above: Order Comment: Order Date: 05/27/24Order Info: 785- - CMPOrder Info: [id number] - LIPIDOrder Info: 2500-7 - TIBCOrder Info: 2498-4 - FEOrder Info: 2276-4 - FEROrder Info: 2288 - FOLSN Performed By: #### L 501.0900 #### [facility] [address] [place], [address] Iron Binding Capacity,Totalo n 05-27-2024 TIBC 305 ug/dL Normal 250-450 [facility] Comment on above: Order Comment: Order Date: 05/27/24Order Info: 785-11 - CMPOrder Info: [id number] - LIPIDOrder Info: 2500-7 - TIBCOrder Info: 2498-4 - FEOrder Info: 2276-4 - FEROrder Info: 228-8 - FOLSN Performed By: #### L 501.0900 #### [facility] [address] [place], [address] Lipid Profileon 05-27-2024 Cholesterol [Mass/Vol] 108 mg/dL Normal 200 [facility] Comment on above: Order Comment: Order Date: 05/27/24Order Info: 785-1 - CMPOrder Info: [id number] - LIPIDOrder Info: 2500-7 - TIBCOrder Info: 2498-4 - FEOrder Info: 2276-4 - FEROrder Info: 2284-8 - FOLSN Result Comment: <200 mg/dL Desirable 200-240 mg/dL Borderline >240 mg/dL High Risk Performed By: #### L 501.0900 #### [facility] [address] [place], [address] Cholesterol in HDL [Mass/Vol] 43 mg/dL Normal [facility] Comment on above: Order Comment: Order Date: 05/27/24Order Info: 86-1 - CMPOrder Info: [id number] - LIPIDOrder Info: 7 - TIBCOrder Info: 2498-4 - FEOrder Info: 2276-4 - FEROrder Info: 2283-8 - FOLSN Result Comment: The drugs N-Acetylcysteine and Metamizole may falsely depress this assay. Reference Range HDL <40 mg/dL Low HDL Cholesterol HDL >or= 60 mg/dL High HDL Cholesterol Performed By: #### L 501.0900 #### [facility] [address], [address] Cholesterol in LDL [Mass/Vol] 44 mg/dL Normal 0-130 [facility] Comment on above: Order Comment: Order Date: 05/27/24Order Info: 86-1 - CMPOrder Info: [id number] - LIPIDOrder Info: 7 - TIBCOrder Info: 2498-4 - FEOrder Info: [id number] - FEROrder Info: 2283-8 - FOLSN Performed By: #### L 501.0900 #### [facility] [address] [place], [address] Cholesterol in VLDL [Mass/Vol] 21 mg/dL Normal 5-40 [facility] Comment on above: Order Comment: Order Date: 05/27/24Order Info: 86-1 - CMPOrder Info: [id number] - LIPIDOrder Info: 7 - TIBCOrder Info: 2498-4 - FEOrder Info: 2276-4 - FEROrder Info: 2283-8 - FOLSN Performed By: #### L 501.0900 #### [facility] [address] [place], [address] Triglyceride [Mass/Vol] 104 mg/dL Normal [facility] Comment on above: Order Comment: Order Date: 05/27/24Order Info: 0786-1 - CMPOrder Info: [id number] - LIPIDOrder Info: 2500-7 - TIBCOrder Info: 2498-4 - FEOrder Info: 2276-4 - FEROrder Info: 2284-8 - FOLSN Result Comment: The drugs N-Acetylcysteine and Metamizole may falsely depress this assay. Serum Triglycerides Reference Interval Normal <150 mg/dL Borderline high 150 - 199 mg/dL High 200 - 499 mg/dL Very High > or = 500 mg/dL Performed By: #### L 501.0900 #### [facility] [address] [place], [address] Protein+Creatinine Ratio,Uri neon 05-27-2024 PROT:CRE RATIO 226 mg/g CRE High 0-200 [facility] Comment on above: Performed By: #### L 400.0001, L501.0900 ####[facility] [address] [place], [address] PROTEIN,UR.RAN. < 6.0 Normal <11.9 [facility] Comment on above: Performed By: #### L 400.0001, L501.0900 ####[facility] [address] [place], [address] UR CREAT 24.30 mg/dL Normal NO RANGE EST. [facility] Comment on above: Performed By: #### L 400.0001, L501.0900 ####[facility] [address] [place], [address] Urinalysis, Completeon 05-27 BACTERIA RARE Normal None Seen [facility] Comment on above: Order Comment: CLEAN CATCH Performed By: #### L 400.0001, L501.0900 ####[facility] [address] [place], [address] EPI,SQUAMOUS 0-5 SEEN Normal 5-10 [facility] Comment on above: Order Comment: CLEAN CATCH Performed By: #### L 400.0001, L501.0900 ####[facility] [address] [place], [address] Mucus Ql (Urine sed) 0 SEEN Normal [facility] Comment on above: Order Comment: CLEAN CATCH Performed By: #### L 400.0001, L501.0900 ####[facility] [address] [place], [address] RBC 0 SEEN Normal 0-5 [facility] Comment on above: Order Comment: CLEAN CATCH Performed By: #### L 400.0001, L501.0900 ####[facility] [address] [place], [address] WBC 0 SEEN Normal 0-5 [facility] Comment on above: Order Comment: CLEAN CATCH Performed By: #### L 400.0001, L501.0900 ####[facility] [address] [place], [address] Vitamin B12on 05-27-2024 Cobalamin (Vitamin B12) [Mass/Vol] 595 pg/mL Normal 211-911 [facility] Comment on above: Order Comment: Order Date: 05/27/24Order Info: [id number] - E85Tkcdr Info: 19906-0 - VITD25 Performed By: #### L 501.0900 #### [facility] [address] [place], [address] Vitamin D,25 Hydroxyon 05-27 Vitamin D 25-OH 89.6 ng/mL Normal [facility] Comment on above: Order Comment: Order Date: 05/27/24Order Info: [id number] Info: [id number] - [id number] Result Comment: Nona min D 25(OH) Status Range Deficiency <20 ng/mL (50nmol/L) Insufficiency 20 - 30 ng/mL (50 - 75 nmol/L) Sufficiency 30 - 100 ng/mL (75 - 250 nmol/L) Toxicity >100 ng/mL (>250 nmol/L) Performed By: #### L [id number] #### [facility] [address] [place], [address] SCRN MAMM (CAD)W/CELIA BILATo n 05-26-2024 SCRN MAMM (CAD)W/CELIA BILAT [facility] Imaging Services [address] [place] [address] SCRN MAMM (CAD)W/CELIA BILAT MR#: [id number] Acct: [id number] Name: PILAR PERSAUD Rep #: [id number] : 1955 F 68 From: Raghavendra elias MD PCP: Dr. Anastacio Lloyd MD Status: [facility] Study: SCRN MAMM (CAD)W/CELIA BILAT Date of Exam: 05/06 12/29 Exam# [id number] Ordering Dr: Maribel Delgado [employer] -C [id number] MAMMOGRAPHY - BILATERAL SCREENING REASON FOR EXAM: Female, 68 years old. Routine annual screening examination. PERTINENT HISTORY: Non-contributory. TECHNIQUE: Digital bilateral breast celia (3D mammographic acquisition) in the CC and MLO projections. 2-D mediolateral oblique (MLO) and craniocaudad (CC) views of both breasts were obtained. CAD: Full Field Digital Mammography with Computer Added Detection was performed. COMPARISON: Comparison is made with prior study dated May 24, 2023 and May 23, 2022. FINDINGS: Breast Composition: The breasts are almost entirely fatty. There are no dominant masses or suspicious calcifications. No other significant abnormalities are identified. There has been no significant change since the prior study. BI/SCRN MAMM (CAD)W/CELIA BILAT IMPRESSION: Stable bilateral screening mammogram. Yearly follow-up mammogram recommended. (A) ASSESSMENT CATEGORY: BIRADS Category 1: Negative. A letter regarding these results will be sent to the patient by the facility within 30 days. Approximately 10% of breast cancers are not detected by mammography. A normal mammogram should not delay biopsy of a clinically suspicious abnormality. [id number] Electronically Signed: Raghavendra Mobley MD at 12:46 EDT , CC: DEBBIE Delgado; Dr. Anastacio Lloyd MD Global Director [employer] Climate Change: Signed Normal [facility] Culture, urineOrdered By: Scot Delgado on 02-18-2024 Bacteria identified Cx Nom (U) Klebsiella pneumoniae sp pneum [facility] - Chemistry and C hemistry - challengeon 02-18-2024 Bilirubin Ql (U) Negative [facility] Glucose Ql (U) Negative [facility] Ketones Ql (U) Negative [facility] pH (U) 5.0 [pH] [facility] Specific gravity (U) [Rel density] 1.010 [facility] Urobilinogen (U) [Mass/Vol] Negative [facility] - Hematology and Cell countson 02-18-2024 Hemoglobin Ql (U) Moderate [facility] - Specimen inform ationon 02-18-2024 Clarity (U) Hazy [facility] Color (U) YELLOW [facility] - Urinalysison Nitrite Ql (U) Negative [facility] Protein Ql (U) Negative [facility] No Panel Informationon 02-17 Urine Leukocytes Positive [facility] Urine Non-Hemolyzed Blood Negative [facility] Culture, urineOrdered By: Scot Delgado on 01-01-2024 Bacteria identified Cx Nom (U) Klebsiella pneumoniae sp pneum [facility] Bacteria identified Cx Nom (U) Klebsiella pneumoniae sp pneum [facility] - Chemistry and C hemistry - challengeon 01-01-2024 Bilirubin Ql (U) Negative [facility] Glucose Ql (U) Negative [facility] Ketones Ql (U) Negative [facility] pH (U) 5.0 [pH] [facility] Specific gravity (U) [Rel density] 1.010 [facility] Urobilinogen (U) [Mass/Vol] Negative [facility] - Hematology and Cell countson 01-01-2024 Hemoglobin Ql (U) Moderate [facility] - Specimen inform ationon 01-01-2024 Clarity (U) Cloudy [facility] Color (U) YELLOW [facility] - Urinalysison Nitrite Ql (U) Negative [facility] Protein Ql (U) Negative [facility] No Panel Informationon 01-01 Urine Leukocytes Positive [facility] Urine Non-Hemolyzed Blood Negative [facility] Absolute lymphocyte countOrd ered By: Anastacio Lloyd on 11-20-2023 Lymphocytes Auto (Unsp spec) [#/Vol] 1.70 10*3/uL 0.83-4.51 [facility] Automated lymphocyte count a s percentage of total leukocytesOrdered By: Anastacio Lloyd on 11-20-2023 Lymphocytes/100 WBC Auto (Unsp spec) 29.9 % 19-41 [facility] Basophil percentageOrdered B y: Anastacio Lloyd on 11-20-2023 Basophil percentage 0-5 SEEN /hpf 0-5 [facility] Basophils/100 WBC (Bld) 0.9 % 0-1 [facility] Bilirubin [Mass/Vol] 0.50 mg/dL 0.20-1.00 [facility] Comment on above: For patients on eltr ombopag therapy, use of Dim[place] TBIL is not recommended. Chloride [Moles/Vol] 110 mmol/L 98-107 [facility] Cholesterol [Mass/Vol] 118 mg/dL <200 [facility] Comment on above: <200 mg/dL Desirable 200-240 mg/dL Borderline >240 mg/dL High Risk Eosinophils/100 WBC (Bld) 2.5 % 0-5 [facility] Glucose [Mass/Vol] 74 mg/dL 74-106 [facility] Hemoglobin (Bld) [Mass/Vol] 13.0 g/dL 12.0-15.0 [facility] Monocytes/100 WBC (Bld) 7.7 % 0-10 [facility] Neutrophils (Bld) [#/Vol] 3.3 10*3/uL 2.0-7.7 [facility] Neutrophils/100 WBC (Bld) 58.8 % 47-70 [facility] Potassium [Moles/Vol] 4.4 mmol/L 3.5-5.1 [facility] Protein [Mass/Vol] 7.2 g/dL 6.4-8.2 [facility] Sodium [Moles/Vol] 142 mmol/L 136-145 [facility] Triglyceride [Mass/Vol] 99 mg/dL <199 [facility] Comment on above: The drugs N-Acetylcy steine and Metamizole may falsely depress this assay.Serum Triglycerides Reference Interval Normal <150 mg/dL Borderline high 150 - 199 mg/dL High 200 - 499 mg/dL Very High > or = 500 mg/dL WBC (Bld) [#/Vol] 5.7 10*3/uL 4.4-11.0 [facility] Bilirubin Test strip Ql (U)O rdered By: Anastacio Lloyd on 11-20-2023 Bilirubin Ql (U) Negative Negative [facility] Determination of erythrocyte mean corpuscular volume (MCV)Ordered By: Anastacio Lloyd on 11-20-2023 MCV (RBC) [Entitic vol] 97.8 fL 81-99 [facility] Erythrocyte distribution wid th ratioOrdered By: Anastacio Lloyd on 11-20-2023 Erythrocyte distribution width (RBC) [Ratio] 12.3 % 11.6-14.6 [facility] Erythrocyte distribution wid th standard deviationOrdered By: Anastacio Lloyd on 11-20-2023 Erythrocyte distribution width (RBC) [Entitic vol] 44.2 fL 35.1-43.9 [facility] Hematocrit Auto (Bld) [Volum e fraction]Ordered By: Anastacio Lloyd on 11-20-2023 Hematocrit (Bld) [Volume fraction] 39.1 % 37-47 [facility] High density lipoprotein (HD L) measurementOrdered By: Anastacio Lloyd on 11-20-2023 Cholesterol in HDL (Body fld) [Mass/Vol] 46 mg/dL >40 [facility] Comment on above: The drugs N-Acetylcy steine and Metamizole may falsely depress this assay. Reference Range HDL <40 mg/dL Low HDL Cholesterol HDL >or= 60 mg/dL High HDL Cholesterol Immature granulocytes/100 WB C Auto (Bld)Ordered By: Anastacio Lloyd on 11-20-2023 Immature granulocytes/100 WBC (Bld) 0.200 % 0.0-0.9 [facility] Comment on above: IG% - Immature Granu locytes (promyelocytes, myelocytes and metamyelocytes) > 1% indicates that a LEFT SHIFT is Present. Ketones Test strip Ql (U)Ord ered By: Anastacio Lloyd on 11-20-2023 Ketones Ql (U) Negative Negative [facility] - Chemistry and C hemistry - challengeOrdered By: Anastacio Lloyd on 11-20-2023 Albumin/Globulin [Mass ratio] 1.1 {ratio} 0.9-2.4 [facility] ALP [Catalytic activity/Vol] 117 U/L 45-117 [facility] ALT [Catalytic activity/Vol] 23 U/L 13-56 [facility] CO2 [Moles/Vol] 27.0 mmol/L 21.0-32.0 [facility] Globulin (S) [Mass/Vol] 3.4 g/dL 2.2-4.2 [facility] Urea nitrogen/Creatinine [Mass ratio] 18.2 mg/mg 10-20 [facility] - Hematology and Cell countsOrdered By: Anastacio Lloyd on 11-20-2023 MCH (RBC) [Entitic mass] 32.5 pg 27.0-32.0 [facility] MCHC (RBC) [Mass/Vol] 33.2 g/dL 32-36 [facility] Nucleated RBC/100 WBC (Bld) [Ratio] 0 % 0-5 [facility] Platelets (Bld) [#/Vol] 293 10*3/uL 150-450 [facility] Low density lipoprotein (LDL ) cholesterol measurementOrdered By: Anastacio Lloyd on 11-20-2023 Cholesterol in LDL (Body fld) [Moles/Vol] 52 mg/dL 0-130 [facility] Mucus LM Ql (Urine sed)Order ed By: Anastacio Lloyd on 11-20-2023 Mucus Ql (Urine sed) 0 SEEN /hpf [facility] Nitrite Test strip Ql (U)Ord ered By: Anastacio Lloyd on 11-20-2023 Nitrite Ql (U) Positive Negative [facility] No Panel InformationOrdered By: Anastacio Lloyd on 11-20-2023 Estimated GFR (MDRD) Amer 64 mL/min >60 [facility] Comment on above: GFR Calc Estimated GFR (MDRD) Non-Af Amer 52 mL/min >60 [facility] Comment on above: Non- GFR Calc Urine RBC 0 SEEN /hpf 0-5 [facility] Vitamin D 25-Hydroxy 97.7 ng/mL [facility] Comment on above: Vitamin D 25(OH) Sta tus Range Deficiency <20 ng/mL (50nmol/L) Insufficiency 20 - 30 ng/mL (50 - 75 nmol/L) Sufficiency 30 - 100 ng/mL (75 - 250 nmol/L) Toxicity >100 ng/mL (>250 nmol/L) Platelet mean volume Harsh-Ec ker (Bld) [Entitic vol]Ordered By: Anastacio Lloyd on 11-20-2023 Platelet mean volume (Bld) [Entitic vol] 9.5 fL 6.2-12.0 [facility] Protein Test strip Ql (U)Ord ered By: Anastacio Lloyd on 11-20-2023 Protein Ql (U) Negative Negative [facility] RBC Auto (Bld) [#/Vol]Ordere d By: Anastacio Lloyd on 11-20-2023 RBC (Bld) [#/Vol] 4.00 10*6/uL 4.2-5.4 [facility] Serum or plasma calcium filomena urement (mass/volume)Ordered By: Anastacio Lloyd on 11-20-2023 Calcium [Mass/Vol] 9.6 mg/dL 8.5-10.1 [facility] Serum or plasma creatinine m easurement (mass/volume)Ordered By: Anastacio Lloyd on 11-20-2023 Creatinine [Mass/Vol] 1.10 mg/dL 0.55-1.02 [facility] Comment on above: The validity of the calculated GFR & GFRAA in patients over 70 years has not been determined. Clinical correlation is essential. Serum or plasma urea nitroge n measurement (mass/volume)Ordered By: Anastacio Lloyd on 11-20-2023 Urea nitrogen [Mass/Vol] 20 mg/dL 7-18 [facility] Serum or plasma uric acid me asurement (mass/volume)Ordered By: Anastacio Lloyd on 11-20-2023 Urate [Mass/Vol] 2.8 mg/dL 2.6-6.0 [facility] Comment on above: The drugs N-Acetylcy steine and Metamizole may falsely depress this assay. Squamous epithelial cells de tection in urine sediment by light microscopyOrdered By: Anastacio Lloyd on 11-20-2023 Epithelial cells.squamous LM Ql (Urine sed) 0-5 SEEN /hpf 5-10 [facility] Thin prep Papanicolaou smear with manual screeningOrdered By: Anastacio Lloyd on 11-20-2023 Thin prep Papanicolaou smear with manual screening 3.8 g/dL 3.2-5.0 [facility] Thin prep Papanicolaou smear with manual screening 24 U/L 15-37 [facility] Thin prep Papanicolaou smear with manual screening 5 5-15 [facility] Urine blood detectionOrdered By: Anastacio Lloyd on 11-20-2023 RBC Ql (U) 25 /ul Negative [facility] Urine clarityOrdered By: Warner Lloyd on 11-20-2023 Clarity (U) Sl. Cloudy Clear [facility] Urine color determinationOrd ered By: Anastacio Lloyd on 11-20-2023 Color (U) Yellow Yellow [facility] Urine glucose detectionOrder ed By: Anastacio Lloyd on 11-20-2023 Glucose Ql (U) Normal mg/dl Normal [facility] Urine leukocyte esterase det ection by dipstickOrdered By: Anastacio Lloyd on 11-20-2023 Leukocyte esterase Test strip Ql (U) 25 /ul Negative [facility] Urine pHOrdered By: Anastacio ayala on 11-20-2023 pH (U) 5.0 [pH] 5.0 - 8.0 [facility] Urine sediment bacteria coun t by microscopy (number/high power field)Ordered By: Anastacio Lloyd on 11-20-2023 Bacteria LM.HPF (Urine sed) [#/Area] 2 /[HPF] None Seen [facility] Urine specific gravity measu rementOrdered By: Anastacio lLoyd on 11-20-2023 Specific gravity (U) [Rel density] 1.020 1.002-1.030 [facility] Urine urobilinogen measureme ntOrdered By: Anastacio Lloyd on 11-20-2023 Urobilinogen Ql (U) Normal mg/dl Normal [facility] Very low density lipoprotein (VLDL) cholesterol measurementOrdered By: Anastacio Lloyd on 11-20-2023 Cholesterol in VLDL Calc [Moles/Vol] 20 mg/dL 5-40 [facility] Basophil percentageOrdered B y: Anastacio Lloyd on 06-21-2023 Chloride [Moles/Vol] 111 mmol/L 98-107 [facility] Glucose [Mass/Vol] 107 mg/dL 74-106 [facility] Comment on above: Fasting Glucose resu lt from 100 to 125 mg/dL suggests IMPAIRED HOMEOSTASIS per A.D.A. criteria. Potassium [Moles/Vol] 3.8 mmol/L 3.5-5.1 [facility] Sodium [Moles/Vol] 142 mmol/L 136-145 [facility] - Chemistry and C hemistry - challengeOrdered By: Anastacio Lloyd on 06-21-2023 CO2 [Moles/Vol] 27.0 mmol/L 21.0-32.0 [facility] Urea nitrogen/Creatinine [Mass ratio] 21.4 mg/mg 10-20 [facility] No Panel InformationOrdered By: Anastacio Lloyd on 06-21-2023 Estimated GFR (MDRD) Amer 69 mL/min >60 [facility] Comment on above: GFR Calc Estimated GFR (MDRD) Non-Af Amer 57 mL/min >60 [facility] Comment on above: Non- GFR Calc Serum or plasma calcium filomena urement (mass/volume)Ordered By: Anastacio Lloyd on 06-21-2023 Calcium [Mass/Vol] 9.2 mg/dL 8.5-10.1 [facility] Serum or plasma creatinine m easurement (mass/volume)Ordered By: Anastacio Lloyd on 06-21-2023 Creatinine [Mass/Vol] 1.03 mg/dL 0.55-1.02 [facility] Comment on above: The validity of the calculated GFR & GFRAA in patients over 70 years has not been determined. Clinical correlation is essential. Serum or plasma urea nitroge n measurement (mass/volume)Ordered By: Anastacio Lloyd on 06-21-2023 Urea nitrogen [Mass/Vol] 22 mg/dL 7-18 [facility] Thin prep Papanicolaou smear with manual screeningOrdered By: Anastacio Lloyd on 06-21-2023 Thin prep Papanicolaou smear with manual screening 4 5-15 [facility] Basophil percentageOrdered B y: Anastacio Lloyd on 05-23-2023 Bilirubin [Mass/Vol] 0.20 mg/dL 0.20-1.00 [facility] Comment on above: For patients on eltr ombopag therapy, use of Dim[place] TBIL is not recommended. Chloride [Moles/Vol] 107 mmol/L 98-107 [facility] Glucose [Mass/Vol] 81 mg/dL 74-106 [facility] Potassium [Moles/Vol] 4.2 mmol/L 3.5-5.1 [facility] Protein [Mass/Vol] 7.2 g/dL 6.4-8.2 [facility] Sodium [Moles/Vol] 141 mmol/L 136-145 [facility] - Chemistry and C hemistry - challengeOrdered By: Anastacio Lloyd on 05-23-2023 ALP [Catalytic activity/Vol] 116 U/L 45-117 [facility] ALT [Catalytic activity/Vol] 28 U/L 13-56 [facility] CO2 [Moles/Vol] 27.0 mmol/L 21.0-32.0 [facility] Globulin (S) [Mass/Vol] 3.3 g/dL 2.2-4.2 [facility] Urea nitrogen/Creatinine [Mass ratio] 22.1 mg/mg 10-20 [facility] No Panel InformationOrdered By: Anastacio Lloyd on 05-23-2023 Estimated GFR (MDRD) Amer 68 mL/min >60 [facility] Comment on above: GFR Calc Estimated GFR (MDRD) Non-Af Amer 56 mL/min >60 [facility] Comment on above: Non- GFR Calc Vitamin D 25-Hydroxy 89.0 ng/mL [facility] Comment on above: Vitamin D 25(OH) Sta tus Range Deficiency <20 ng/mL (50nmol/L) Insufficiency 20 - 30 ng/mL (50 - 75 nmol/L) Sufficiency 30 - 100 ng/mL (75 - 250 nmol/L) Toxicity >100 ng/mL (>250 nmol/L) Serum or plasma albumin filomena urement (mass/volume)Ordered By: Anastacio Lloyd on 05-23-2023 Albumin [Mass/Vol] 3.9 g/dL 3.2-5.0 [facility] Serum or plasma albumin/glob ulin mass ratioOrdered By: Anastacio Lloyd on 05-23-2023 Albumin/Globulin [Mass ratio] 1.2 {ratio} 0.9-2.4 [facility] Serum or plasma calcium filomena urement (mass/volume)Ordered By: Anastacio Lloyd on 05-23-2023 Calcium [Mass/Vol] 9.7 mg/dL 8.5-10.1 [facility] Serum or plasma creatinine m easurement (mass/volume)Ordered By: Anastacio Lloyd on 05-23-2023 Creatinine [Mass/Vol] 1.04 mg/dL 0.55-1.02 [facility] Comment on above: The validity of the calculated GFR & GFRAA in patients over 70 years has not been determined. Clinical correlation is essential. Serum or plasma urea nitroge n measurement (mass/volume)Ordered By: Anastacio Lloyd on 05-23-2023 Urea nitrogen [Mass/Vol] 23 mg/dL 7-18 [facility] Thin prep Papanicolaou smear with manual screeningOrdered By: Anastacio Lloyd on 05-23-2023 Thin prep Papanicolaou smear with manual screening 25 U/L 15-37 [facility] Thin prep Papanicolaou smear with manual screening 7 5-15 [facility] Absolute lymphocyte countOrd ered By: Dr. Lloyd on 08-08-2022 Lymphocytes Auto (Unsp spec) [#/Vol] 2.07 10*3/uL 0.83-4.51 [facility] Basophil percentageOrdered B y: Dr. Lloyd on 08-08-2022 Basophil percentage 0-5 SEEN /hpf 0-5 [facility] Basophils/100 WBC (Bld) 1.0 % 0-1 [facility] Bilirubin [Mass/Vol] 0.30 mg/dL 0.20-1.00 [facility] Comment on above: For patients on eltr ombopag therapy, use of [place] TBIL is not recommended. Chloride [Moles/Vol] 109 mmol/L 98-107 [facility] Eosinophils/100 WBC (Bld) 3.2 % 0-5 [facility] Glucose [Mass/Vol] 85 mg/dL 74-106 [facility] Neutrophils (Bld) [#/Vol] 3.1 10*3/uL 2.0-7.7 [facility] Neutrophils/100 WBC (Bld) 52.0 % 47-70 [facility] Potassium [Moles/Vol] 4.2 mmol/L 3.5-5.1 [facility] Protein [Mass/Vol] 7.3 g/dL 6.4-8.2 [facility] Sodium [Moles/Vol] 144 mmol/L 136-145 [facility] WBC (Bld) [#/Vol] 5.9 10*3/uL 4.4-11.0 [facility] Bilirubin Test strip Ql (U)O rdered By: Dr. Lloyd on 08-08-2022 Bilirubin Ql (U) Negative Negative [facility] Blood erythrocytes count (nu mber/volume)Ordered By: Dr. Lloyd on 08-08-2022 RBC (Bld) [#/Vol] 4.15 10*6/uL 4.2-5.4 [facility] Blood hemoglobin measurement (mass/volume)Ordered By: Dr. Lloyd on 08-08-2022 Hemoglobin (Bld) [Mass/Vol] 12.8 g/dL 12.0-15.0 [facility] Blood lymphocytes/100 leukoc ytesOrdered By: Dr. Lloyd on 08-08-2022 Lymphocytes/100 WBC (Bld) 35.0 % 19-41 [facility] Blood monocytes/100 leukocyt esOrdered By: Dr. Lloyd on 08-08-2022 Monocytes/100 WBC (Bld) 8.5 % 0-10 [facility] Blood platelet mean volumeOr dered By: Dr. Lloyd on 08-08-2022 Platelet mean volume (Bld) [Entitic vol] 9.3 fL 6.2-12.0 [facility] Determination of erythrocyte mean corpuscular volume (MCV)Ordered By: Dr. Lloyd on 08-08-2022 MCV (RBC) [Entitic vol] 96.1 fL 81-99 [facility] Hematocrit Auto (Bld) [Volum e fraction]Ordered By: Dr. Lloyd on 08-08-2022 Hematocrit (Bld) [Volume fraction] 39.9 % 37-47 [facility] Ketones Test strip Ql (U)Ord ered By: Dr. Lloyd on 08-08-2022 Ketones Ql (U) Negative Negative [facility] - Chemistry and C hemistry - challengeOrdered By: Dr. Lloyd on 08-08-2022 ALP [Catalytic activity/Vol] 113 U/L 45-117 [facility] ALT [Catalytic activity/Vol] 27 U/L 13-56 [facility] CO2 [Moles/Vol] 30.0 mmol/L 21.0-32.0 [facility] Globulin (S) [Mass/Vol] 3.6 g/dL 2.2-4.2 [facility] Urea nitrogen/Creatinine [Mass ratio] 22.2 mg/mg 10-20 [facility] - Hematology and Cell countsOrdered By: Dr. Lloyd on 08-08-2022 Erythrocyte distribution width (RBC) [Entitic vol] 46.6 fL 35.1-43.9 [facility] Erythrocyte distribution width (RBC) [Ratio] 13.2 % 11.6-14.6 [facility] Immature granulocytes/100 WBC (Bld) 0.300 % 0.0-0.9 [facility] Comment on above: IG% - Immature Granu locytes (promyelocytes, myelocytes and metamyelocytes) > 1% indicates that a LEFT SHIFT is Present. MCH (RBC) [Entitic mass] 30.8 pg 27.0-32.0 [facility] Nucleated RBC/100 WBC (Bld) [Ratio] 0 % 0-5 [facility] MCHC Auto (RBC) [Mass/Vol]Or dered By: Dr. Lloyd on 08-08-2022 MCHC (RBC) [Mass/Vol] 32.1 g/dL 32-36 [facility] Mucus LM Ql (Urine sed)Order ed By: Dr. Lloyd on 08-08-2022 Mucus Ql (Urine sed) 0 SEEN /hpf [facility] Nitrite Test strip Ql (U)Ord ered By: Dr. Lloyd on 08-08-2022 Nitrite Ql (U) Negative Negative [facility] No Panel InformationOrdered By: Dr. Lloyd on 08-08-2022 Estimated GFR (MDRD) Amer 76 mL/min >60 [facility] Comment on above: GFR Calc Estimated GFR (MDRD) Non-Af Amer 63 mL/min >60 [facility] Comment on above: Non- GFR Calc Vitamin D 25-Hydroxy 79.5 ng/mL [facility] Comment on above: Vitamin D 25(OH) Sta tus Range Deficiency <20 ng/mL (50nmol/L) Insufficiency 20 - 30 ng/mL (50 - 75 nmol/L) Sufficiency 30 - 100 ng/mL (75 - 250 nmol/L) Toxicity >100 ng/mL (>250 nmol/L) Platelets bldOrdered By: Dr. Lloyd on 08-08-2022 Platelets (Bld) [#/Vol] 304 10*3/uL 150-450 [facility] Protein Test strip Ql (U)Ord ered By: Dr. Lloyd on 08-08-2022 Protein Ql (U) Negative Negative [facility] Serum or plasma albumin filomena urement (mass/volume)Ordered By: Dr. Lloyd on 08-08-2022 Albumin [Mass/Vol] 3.7 g/dL 3.2-5.0 [facility] Serum or plasma albumin/glob ulin mass ratioOrdered By: Dr. Lloyd on 08-08-2022 Albumin/Globulin [Mass ratio] 1.0 {ratio} 0.9-2.4 [facility] Serum or plasma calcium filomena urement (mass/volume)Ordered By: Dr. Lloyd on 08-08-2022 Calcium [Mass/Vol] 9.7 mg/dL 8.5-10.1 [facility] Serum or plasma creatinine m easurement (mass/volume)Ordered By: Dr. Lloyd on 08-08-2022 Creatinine [Mass/Vol] 0.95 mg/dL 0.55-1.02 [facility] Comment on above: The validity of the calculated GFR & GFRAA in patients over 70 years has not been determined. Clinical correlation is essential. Serum or plasma urea nitroge n measurement (mass/volume)Ordered By: Dr. Lloyd on 08-08-2022 Urea nitrogen [Mass/Vol] 21 mg/dL 7-18 [facility] Squamous epithelial cells de tection in urine sediment by light microscopyOrdered By: Dr. Lloyd on 08-08-2022 Epithelial cells.squamous LM Ql (Urine sed) 5-10 SEEN /hpf 5-10 [facility] Thin prep Papanicolaou smear with manual screeningOrdered By: Dr. Lloyd on 08-08-2022 Thin prep Papanicolaou smear with manual screening 18 U/L 15-37 [facility] [facility] Thin prep Papanicolaou smear with manual screening 5 5-15 [facility] Urine blood detectionOrdered By: Dr. Lloyd on 08-08-2022 RBC Ql (U) 10 /ul Negative [facility] RBC Ql (U) 0-5 SEEN /hpf 0-5 [facility] Urine clarityOrdered By: Dr. Lloyd on 08-08-2022 Clarity (U) Clear Clear [facility] Urine color determinationOrd ered By: Dr. Lloyd on 08-08-2022 Color (U) Yellow Yellow [facility] Urine glucose detectionOrder ed By: Dr. Lloyd on 08-08-2022 Glucose Ql (U) Normal mg/dl Normal [facility] Urine leukocyte esterase det ection by dipstickOrdered By: Dr. Lloyd on 08-08-2022 Leukocyte esterase Test strip Ql (U) 25 /ul Negative [facility] Urine pHOrdered By: Dr. Demetrio cason on 08-08-2022 pH (U) 6.0 [pH] 5.0 - 8.0 [facility] Urine sediment bacteria coun t by microscopy (number/high power field)Ordered By: Dr. Lloyd on 08-08-2022 Bacteria LM.HPF (Urine sed) [#/Area] 1 /[HPF] None Seen [facility] Urine specific gravity measu rementOrdered By: Dr. Lloyd on 08-08-2022 Specific gravity (U) [Rel density] 1.020 1.002-1.030 [facility] Urobilinogen Auto test strip Ql (U)Ordered By: Dr. Lloyd on 08-08-2022 Urobilinogen Ql (U) Normal mg/dl Normal [facility] Basophil percentageon 2021 Chloride [Moles/Vol] 109 mmol/L 98-107 [facility] Work Phone: Glucose [Mass/Vol] 133 mg/dL 74-106 [facility] Work Phone: Comment on above: Fasting Glucose resu lt greater than or equal to 126 mg/dL suggests DIABETES MELLITUS per A.D.A. criteria. Potassium [Moles/Vol] 3.9 mmol/L 3.5-5.1 [facility] Work Phone: Sodium [Moles/Vol] 140 mmol/L 136-145 [facility] Work Phone: WBC (Bld) [#/Vol] 5.5 10*3/uL 4.4-11.0 [facility] Work Phone: [phone] Blood erythrocytes count (nu mber/volume)on 04-06-2022 RBC (Bld) [#/Vol] 3.91 10*6/uL 4.2-5.4 [facility] Work Phone: Blood hemoglobin measurement (mass/volume)on 04-06-2022 Hemoglobin (Bld) [Mass/Vol] 12.0 g/dL 12.0-15.0 [facility] Work Phone: Blood platelet mean volumeon 04-06-2022 Platelet mean volume (Bld) [Entitic vol] 9.4 fL 6.2-12.0 [facility] Work Phone: Determination of erythrocyte mean corpuscular volume (MCV)on 04-06-2022 MCV (RBC) [Entitic vol] 96.7 fL 81-99 [facility] Work Phone: Hematocrit Auto (Bld) [Volum e fraction]on 04-06-2022 Hematocrit (Bld) [Volume fraction] 37.8 % 37-47 [facility] Work Phone: Laboratory - Chemistry and C hemistry - challengeon 04-06-2022 CO2 [Moles/Vol] 27.0 mmol/L 21.0-32.0 [facility] Work Phone: Urea nitrogen/Creatinine [Mass ratio] 26.5 mg/mg 10-20 [facility] Work Phone: Laboratory - Hematology and Cell countson 04-06-2022 Erythrocyte distribution width (RBC) [Entitic vol] 43.7 fL 35.1-43.9 [facility] Work Phone: Erythrocyte distribution width (RBC) [Ratio] 12.4 % 11.6-14.6 [facility] Work Phone: MCH (RBC) [Entitic mass] 30.7 pg 27.0-32.0 [facility] Work Phone: MCHC Auto (RBC) [Mass/Vol]on 04-06-2022 MCHC (RBC) [Mass/Vol] 31.7 g/dL 32-36 [facility] Work Phone: No Panel Informationon 04-06 Estimated GFR (MDRD) Amer 80 mL/min >60 [facility] Work Phone: Comment on above: GFR Calc Estimated GFR (MDRD) Non-Af Amer 66 mL/min >60 [facility] Work Phone: Comment on above: Non- GFR Calc Platelets bldon 04-06-2022 Platelets (Bld) [#/Vol] 265 10*3/uL 150-450 [facility] Work Phone: Serum or plasma calcium filomena urement (mass/volume)on 04-06-2022 Calcium [Mass/Vol] 9.3 mg/dL 8.5-10.1 [facility] Work Phone: Serum or plasma creatinine m easurement (mass/volume)on 04-06-2022 Creatinine [Mass/Vol] 0.91 mg/dL 0.55-1.02 [facility] Work Phone: Comment on above: The validity of the calculated GFR & GFRAA in patients over 70 years has not been determined. Clinical correlation is essential. Serum or plasma urea nitroge n measurement (mass/volume)on 04-06-2022 Urea nitrogen [Mass/Vol] 24 mg/dL 7-18 [facility] Work Phone: Thin prep Papanicolaou smear with manual screeningon 04-06-2022 Thin prep Papanicolaou smear with manual screening 4 5-15 [facility] Work Phone: Absolute lymphocyte counton 01-25-2022 Lymphocytes Auto (Unsp spec) [#/Vol] 1.63 10*3/uL 0.83-4.51 [facility] Work Phone: Basophil percentageon 2021 Basophils/100 WBC (Bld) 1.1 % 0-1 [facility] Work Phone: Bilirubin [Mass/Vol] 0.30 mg/dL 0.20-1.00 [facility] Work Phone: Comment on above: For patients on eltr ombopag therapy, use of Dimension [place] TBIL is not recommended. Chloride [Moles/Vol] 106 mmol/L 98-107 [facility] Work Phone: Cholesterol [Mass/Vol] 139 mg/dL <200 [facility] Work Phone: Comment on above: <200 mg/dL Desirable 200-240 mg/dL Borderline >240 mg/dL High Risk Eosinophils/100 WBC (Bld) 2.6 % 0-5 [facility] Work Phone: [phone] Glucose [Mass/Vol] 92 mg/dL 74-106 [facility] Work Phone: Neutrophils (Bld) [#/Vol] 3.8 10*3/uL 2.0-7.7 [facility] Work Phone: [phone] Neutrophils/100 WBC (Bld) 61.8 % 47-70 [facility] Work Phone: Potassium [Moles/Vol] 4.3 mmol/L 3.5-5.1 [facility] Work Phone: [phone] Protein [Mass/Vol] 7.0 g/dL 6.4-8.2 [facility] Work Phone: [phone] Sodium [Moles/Vol] 140 mmol/L 136-145 [facility] Work Phone: [phone] Triglyceride [Mass/Vol] 113 mg/dL <199 [facility] Work Phone: [phone] Comment on above: The drugs N-Acetylcy steine and Metamizole may falsely depress this assay.Serum Triglycerides Reference Interval Normal <150 mg/dL Borderline high 150 - 199 mg/dL High 200 - 499 mg/dL Very High > or = 500 mg/dL WBC (Bld) [#/Vol] 6.2 10*3/uL 4.4-11.0 [facility] Work Phone: [phone] Blood erythrocytes count (nu mber/volume)on 01-25-2022 RBC (Bld) [#/Vol] 3.88 10*6/uL 4.2-5.4 [facility] Work Phone: [phone] Blood hemoglobin measurement (mass/volume)on 01-25-2022 Hemoglobin (Bld) [Mass/Vol] 11.8 g/dL 12.0-15.0 [facility] Work Phone: [phone] Blood lymphocytes/100 leukoc yteson 01-25-2022 Lymphocytes/100 WBC (Bld) 26.3 % 19-41 [facility] Work Phone: Blood monocytes/100 leukocyt eson 01-25-2022 Monocytes/100 WBC (Bld) 7.9 % 0-10 [facility] Work Phone: Blood platelet mean volumeon 01-25-2022 Platelet mean volume (Bld) [Entitic vol] 9.2 fL 6.2-12.0 [facility] Work Phone: [phone] Determination of erythrocyte mean corpuscular volume (MCV)on 01-25-2022 MCV (RBC) [Entitic vol] 96.4 fL 81-99 [facility] Work Phone: Hematocrit Auto (Bld) [Volum e fraction]on 01-25-2022 Hematocrit (Bld) [Volume fraction] 37.4 % 37-47 [facility] Work Phone: [phone] Iron measurement (mass/mass) on 01-25-2022 Iron (Unsp spec) [Mass/Mass] 85 ug/dL 50-170 [facility] Work Phone: [phone] Laboratory - Chemistry and C hemistry - challengeon 01-25-2022 ALP [Catalytic activity/Vol] 111 U/L 45-117 [facility] Work Phone: [phone] ALT [Catalytic activity/Vol] 37 U/L 13-56 [facility] Work Phone: [phone] CO2 [Moles/Vol] 31.0 mmol/L 21.0-32.0 [facility] Work Phone: [phone] Cobalamin (Vitamin B12) [Mass/Vol] 535 pg/mL 211-911 [facility] Work Phone: Globulin (S) [Mass/Vol] 3.3 g/dL 2.2-4.2 [facility] Work Phone: [phone] Urea nitrogen/Creatinine [Mass ratio] 19.7 mg/mg 10-20 [facility] Work Phone: [phone] Laboratory - Hematology and Cell countson 01-25-2022 Erythrocyte distribution width (RBC) [Entitic vol] 43.9 fL 35.1-43.9 [facility] Work Phone: Erythrocyte distribution width (RBC) [Ratio] 12.4 % 11.6-14.6 [facility] Work Phone: Immature granulocytes/100 WBC (Bld) 0.300 % 0.0-0.9 [facility] Work Phone: Comment on above: IG% - Immature Granu locytes (promyelocytes, myelocytes and metamyelocytes) > 1% indicates that a LEFT SHIFT is Present. MCH (RBC) [Entitic mass] 30.4 pg 27.0-32.0 [facility] Work Phone: Nucleated RBC/100 WBC (Bld) [Ratio] 0 % 0-5 [facility] Work Phone: MCHC Auto (RBC) [Mass/Vol]on 01-25-2022 MCHC (RBC) [Mass/Vol] 31.6 g/dL 32-36 [facility] Work Phone: No Panel Informationon 01-25 Estimated GFR (MDRD) Amer 79 mL/min >60 [facility] Work Phone: Comment on above: GFR Calc Estimated GFR (MDRD) Non-Af Amer 66 mL/min >60 [facility] Work Phone: Comment on above: Non- GFR Calc Total Iron Binding Capacity 315 ug/dL 250-450 [facility] Work Phone: Vitamin D 25-Hydroxy 72.0 ng/mL [facility] Work Phone: Comment on above: Vitamin D 25(OH) Sta tus Range Deficiency <20 ng/mL (50nmol/L) Insufficiency 20 - 30 ng/mL (50 - 75 nmol/L) Sufficiency 30 - 100 ng/mL (75 - 250 nmol/L) Toxicity >100 ng/mL (>250 nmol/L) Platelets bldon 01-25-2022 Platelets (Bld) [#/Vol] 287 10*3/uL 150-450 [facility] Work Phone: Serum or plasma albumin filomena urement (mass/volume)on 01-25-2022 Albumin [Mass/Vol] 3.7 g/dL 3.2-5.0 [facility] Work Phone: Serum or plasma albumin/glob ulin mass ratioon 01-25-2022 Albumin/Globulin [Mass ratio] 1.1 {ratio} 0.9-2.4 [facility] Work Phone: Serum or plasma calcium filomena urement (mass/volume)on 01-25-2022 Calcium [Mass/Vol] 9.2 mg/dL 8.5-10.1 [facility] Work Phone: Serum or plasma cholesterol in HDL measurement (mass/volume)on 01-25-2022 Cholesterol in HDL [Mass/Vol] 52 mg/dL >40 [facility] Work Phone: Comment on above: The drugs N-Acetylcy steine and Metamizole may falsely depress this assay. Reference Range HDL <40 mg/dL Low HDL Cholesterol HDL >or= 60 mg/dL High HDL Cholesterol Serum or plasma cholesterol in VLDL measurement (mass/volume)on 01-25-2022 Cholesterol in VLDL [Mass/Vol] 23 mg/dL 5-40 [facility] Work Phone: Serum or plasma creatinine m easurement (mass/volume)on 01-25-2022 Creatinine [Mass/Vol] 0.91 mg/dL 0.55-1.02 [facility] Work Phone: Comment on above: The validity of the calculated GFR & GFRAA in patients over 70 years has not been determined. Clinical correlation is essential. Serum or plasma ferritin [facility] surement (mass/volume)on 01-25-2022 Ferritin [Mass/Vol] 24 ng/mL 8-252 [facility] Work Phone: Serum or plasma iron saturat ion measurement (mass fraction)on 01-25-2022 Iron saturation [Mass fraction] 27.0 % 15.0-55.0 [facility] Work Phone: Serum or plasma low density lipoprotein (LDL) cholesterol measurement (mass/volume)on 01-25-2022 Cholesterol in LDL [Mass/Vol] 64 mg/dL 0-130 [facility] Work Phone: [phone] Serum or plasma urea nitroge n measurement (mass/volume)on 01-25-2022 Urea nitrogen [Mass/Vol] 18 mg/dL 7-18 [facility] Work Phone: [phone] Thin prep Papanicolaou smear with manual screeningon 01-25-2022 Thin prep Papanicolaou smear with manual screening 24 U/L 15-37 [facility] Work Phone: Thin prep Papanicolaou smear with manual screening 3 5-15 [facility] Work Phone: [phone] No Panel Informationon 12-01 SARS-CoV-2 Antigen (Rapid) [facility] Work Phone: [phone] Absolute lymphocyte counton 10-20-2021 Lymphocytes Auto (Unsp spec) [#/Vol] 1.69 10*3/uL 0.83-4.51 [facility] Work Phone: [phone] Basophil percentageon 2020 Basophil percentage 0 SEEN /hpf [facility] Work Phone: [phone] Eosinophils/100 WBC (Bld) 3.0 % 0-5 [facility] Work Phone: [phone] Neutrophils (Bld) [#/Vol] 3.9 10*3/uL 2.0-7.7 [facility] Work Phone: WBC (Bld) [#/Vol] 6.4 10*3/uL 4.4-11.0 [facility] Work Phone: [phone] Bilirubin Test strip Ql (U)o n 10-20-2021 Bilirubin Ql (U) Negative Negative [facility] Work Phone: [phone] Blood erythrocytes count (nu mber/volume)on 10-20-2021 RBC (Bld) [#/Vol] 3.92 10*6/uL 4.2-5.4 [facility] Work Phone: [phone] Blood hemoglobin measurement (mass/volume)on 10-20-2021 Hemoglobin (Bld) [Mass/Vol] 12.3 g/dL 12.0-15.0 [facility] Work Phone: Blood lymphocytes/100 leukoc yteson 10-20-2021 Lymphocytes/100 WBC (Bld) 26.5 % 19-41 [facility] Work Phone: Blood monocytes/100 leukocyt eson 10-20-2021 Monocytes/100 WBC (Bld) 8.2 % 0-10 [facility] Work Phone: Blood platelet mean volumeon 10-20-2021 Platelet mean volume (Bld) [Entitic vol] 9.1 fL 6.2-12.0 [facility] Work Phone: [phone] Determination of erythrocyte mean corpuscular volume (MCV)on 10-20-2021 MCV (RBC) [Entitic vol] 95.4 fL 81-99 [facility] Work Phone: [phone] Hematocrit Auto (Bld) [Volum e fraction]on 10-20-2021 Hematocrit (Bld) [Volume fraction] 37.4 % 37-47 [facility] Work Phone: [phone] Ketones Test strip Ql (U)on 10-20-2021 Ketones Ql (U) Negative Negative [facility] Work Phone: [phone] Laboratory - Hematology and Cell countson 10-20-2021 Basophils/100 WBC (Unsp spec) 0.9 % 0-1 [facility] Work Phone: [phone] Erythrocyte distribution width (RBC) [Entitic vol] 42.0 fL 35.1-43.9 [facility] Work Phone: [phone] Erythrocyte distribution width (RBC) [Ratio] 12.1 % 11.6-14.6 [facility] Work Phone: [phone] Immature granulocytes/100 WBC (Bld) 0.200 % 0.0-0.9 [facility] Work Phone: [phone] Comment on above: IG% - Immature Granu locytes (promyelocytes, myelocytes and metamyelocytes) > 1% indicates that a LEFT SHIFT is Present. MCH (RBC) [Entitic mass] 31.4 pg 27.0-32.0 [facility] Work Phone: Neutrophils/100 WBC (Bld) 61.2 % 47-70 [facility] Work Phone: Nucleated RBC/100 WBC (Bld) [Ratio] 0 % 0-5 [facility] Work Phone: MCHC Auto (RBC) [Mass/Vol]on 10-20-2021 MCHC (RBC) [Mass/Vol] 32.9 g/dL 32-36 [facility] Work Phone: Mucus LM Ql (Urine sed)on Mucus Ql (Urine sed) 0 SEEN /hpf [facility] Work Phone: Nitrite Test strip Ql (U)on 10-20-2021 Nitrite Ql (U) Negative Negative [facility] Work Phone: No Panel Informationon 10-20 Vitamin D 25-Hydroxy 68.5 ng/mL [facility] Work Phone: Comment on above: Vitamin D 25(OH) Sta tus Range Deficiency <20 ng/mL (50nmol/L) Insufficiency 20 - 30 ng/mL (50 - 75 nmol/L) Sufficiency 30 - 100 ng/mL (75 - 250 nmol/L) Toxicity >100 ng/mL (>250 nmol/L) Platelets bldon 10-20-2021 Platelets (Bld) [#/Vol] 309 10*3/uL 150-450 [facility] Work Phone: Protein Test strip Ql (U)on 10-20-2021 Protein Ql (U) Negative Negative [facility] Work Phone: Squamous epithelial cells de tection in urine sediment by light microscopyon 10-20-2021 Epithelial cells.squamous LM Ql (Urine sed) 5-10 SEEN /hpf [facility] Work Phone: Urine blood detectionon 10-05 RBC Ql (U) Negative Negative [facility] Work Phone: RBC Ql (U) 0 SEEN /hpf [facility] Work Phone: Urine clarityon 10-20-2021 Clarity (U) Clear Clear [facility] Work Phone: Urine color determinationon 10-20-2021 Color (U) Yellow Yellow [facility] Work Phone: Urine glucose detectionon Glucose Ql (U) Normal mg/dl Normal [facility] Work Phone: Urine leukocyte esterase det ection by dipstickon 10-20-2021 Leukocyte esterase Test strip Ql (U) Negative Negative [facility] Work Phone: Urine pHon 10-20-2021 pH (U) 7.0 [pH] [facility] Work Phone: Urine sediment bacteria coun t by microscopy (number/high power field)on 10-20-2021 Bacteria LM.HPF (Urine sed) [#/Area] 0 /[HPF] None Seen [facility] Work Phone: Urine specific gravity measu rementon 10-20-2021 Specific gravity (U) [Rel density] 1.010 [facility] Work Phone: Urobilinogen Auto test strip Ql (U)on 10-20-2021 Urobilinogen Ql (U) Normal mg/dl Normal [facility] Work Phone: Basophil percentageon 2020 Bilirubin [Mass/Vol] 0.30 mg/dL 0.20-1.00 [facility] Work Phone: Comment on above: For patients on eltr ombopag therapy, use of Dim[place] TBIL is not recommended. Chloride [Moles/Vol] 109 mmol/L 98-107 [facility] Work Phone: Cholesterol [Mass/Vol] 132 mg/dL <200 [facility] Work Phone: Comment on above: <200 mg/dL Desirable 200-240 mg/dL Borderline >240 mg/dL High Risk Glucose [Mass/Vol] 87 mg/dL 74-106 [facility] Work Phone: Comment on above: Please note revised GLUCOSE reference range effective 2017. Potassium [Moles/Vol] 3.9 mmol/L 3.5-5.1 [facility] Work Phone: Protein [Mass/Vol] 6.9 g/dL 6.4-8.2 [facility] Work Phone: Sodium [Moles/Vol] 143 mmol/L 136-145 [facility] Work Phone: Triglyceride [Mass/Vol] 101 mg/dL [facility] Work Phone: Comment on above: The drugs N-Acetylcy steine and Metamizole may falsely depress this assay.Serum Triglycerides Reference Interval Normal <150 mg/dL Borderline high 150 - 199 mg/dL High 200 - 499 mg/dL Very High > or = 500 mg/dL Laboratory - Chemistry and C hemistry - challengeon 10-17-2021 ALP [Catalytic activity/Vol] 92 U/L 45-117 [facility] Work Phone: ALT [Catalytic activity/Vol] 30 U/L 13-56 [facility] Work Phone: CO2 [Moles/Vol] 30.0 mmol/L 21.0-32.0 [facility] Work Phone: Globulin (S) [Mass/Vol] 3.4 g/dL 2.2-4.2 [facility] Work Phone: Urea nitrogen/Creatinine [Mass ratio] 21.8 mg/mg 10-20 [facility] Work Phone: No Panel Informationon 10-17 Estimated GFR (MDRD) Amer 71 mL/min >60 [facility] Work Phone: Comment on above: GFR Calc Estimated GFR (MDRD) Non-Af Amer 58 mL/min >60 [facility] Work Phone: Comment on above: Non- GFR Calc Serum or plasma albumin filomena urement (mass/volume)on 10-17-2021 Albumin [Mass/Vol] 3.5 g/dL 3.2-5.0 [facility] Work Phone: Serum or plasma albumin/glob ulin mass ratioon 10-17-2021 Albumin/Globulin [Mass ratio] 1.0 {ratio} 0.9-2.4 [facility] Work Phone: Serum or plasma calcium filomena urement (mass/volume)on 10-17-2021 Calcium [Mass/Vol] 9.0 mg/dL 8.5-10.1 [facility] Work Phone: Serum or plasma cholesterol in HDL measurement (mass/volume)on 10-17-2021 Cholesterol in HDL [Mass/Vol] 51 mg/dL [facility] Work Phone: Comment on above: The drugs N-Acetylcy steine and Metamizole may falsely depress this assay. Reference Range HDL <40 mg/dL Low HDL Cholesterol HDL >or= 60 mg/dL High HDL Cholesterol Serum or plasma cholesterol in VLDL measurement (mass/volume)on 10-17-2021 Cholesterol in VLDL [Mass/Vol] 20 mg/dL 5-40 [facility] Work Phone: Serum or plasma creatinine m easurement (mass/volume)on 10-17-2021 Creatinine [Mass/Vol] 1.01 mg/dL 0.55-1.02 [facility] Work Phone: Comment on above: The validity of the calculated GFR & GFRAA in patients over 70 years has not been determined. Clinical correlation is essential. Serum or plasma low density lipoprotein (LDL) cholesterol measurement (mass/volume)on 10-17-2021 Cholesterol in LDL [Mass/Vol] 61 mg/dL 0-130 [facility] Work Phone: Serum or plasma urea nitroge n measurement (mass/volume)on 10-17-2021 Urea nitrogen [Mass/Vol] 22 mg/dL 7-18 [facility] Work Phone: Thin prep Papanicolaou smear with manual screeningon 10-17-2021 Thin prep Papanicolaou smear with manual screening 19 U/L 15-37 [facility] Work Phone: Thin prep Papanicolaou smear with manual screening 4 5-15 [facility] Work Phone: URINE CULTUREon 03-03-2021 Bacteria identified Cx Nom (U) SPECIMEN DESCRIPTION URINE CLEAN CATCH UA DIPSTICK LEUKOCYTE POSITIVE * Result Note: NITRITE POSITIVE * CULTURE ESCHERICHIA COLI * Result Note: >100,000 C/C/ML * * Result Note: Testing performed at [place] [address] * REPORT STATUS 03/03/2021 * Result Note: FINAL * ORGANISM ESCHERICHIA COLI * Result Note: ESCHERICHIA COLI * METHOD WIL AMPICILLIN >=32 RESISTANT AMPICILLIN/SULBACTAM 16 INTERMEDIATE CEFTRIAXONE <=1 SUSCEPTIBLE CEFAZOLIN <=4 SUSCEPTIBLE IMIPENEM <=0.25 SUSCEPTIBLE GENTAMICIN <=1 SUSCEPTIBLE TRIMETH-SULFA <=20 SUSCEPTIBLE AMOXICILLIN/CLAVULANIC A 8 SUSCEPTIBLE NITROFURANTOIN <=16 SUSCEPTIBLE PIPERACILLIN/TAZOBACTAM <=4 SUSCEPTIBLE LEVOFLOXACIN <=0.12 SUSCEPTIBLE ESBL NEGATIVE CEFTAZIDIME <=1 SUSCEPTIBLE Normal [facility] Comment on above: Performed By: #### A URNC #### [place] [address] [place] [address] ANCA PANELon 03-02-2021 3 (VT-3) ABS <3.5 Normal [facility] Comment on above: Result Comment: Refe rence range: 0.0 to 3.5 Unit: U/mL PERFORMED AT [facility] Performed By: #### C REACT, CPK, CMPF, ESR, URIC, ACBC #### [place] [address] #### LTTG, LC3, LC4, KEON, VJ, KARMAEZ #### Testing performed at [address] [address] #### [id number], LACCGA #### Testing performed at [facility] #### LANCA #### Testing performed at [address] [address] Testing performed at [facility] ATYPICAL PANCA <1:20 Normal [facility] Comment on above: Result Comment: Refe rence range: Neg:<1:20 Unit: titer (NOTE) The atypical pANCA pattern has been observed in a significant percentage of patients with ulcerative colitis, primary sclerosing cholangitis and autoimmune hepatitis. PERFORMED AT [facility] Performed By: #### C REACT, CPK, CMPF, ESR, URIC, ACBC #### Testing performed at [address] [address] #### LTTG, LC3, LC4, KEON, LIMEL, LACEZ #### Testing performed at [address] [address] #### [id number], LACCGA #### Testing performed at [facility] #### LANCA #### Testing performed at [address] [address] Testing performed at [facility] CYTOPLASMIC (C-ANCA) <1:20 Normal [facility] Comment on above: Result Comment: Refe rence range: Neg:<1:20 Unit: titer Performed By: #### C REACT, CPK, CMPF, ESR, URIC, ACBC #### Testing performed at [address] [address] #### LTTG, LC3, LC4, KEON, LIMEL, LACEZ #### Testing performed at [address] [address] #### [id number], LACCGA #### Testing performed at [facility] #### LANCA #### Testing performed at [address] [address] Testing performed at [facility] MPO ABS <9.0 [facility] Comment on above: Result Comment: Refe rence range: 0.0 to 9.0 Unit: U/mL PERFORMED AT [facility] Performed By: #### C REACT, CPK, CMPF, ESR, URIC, ACBC #### Testing performed at [address] [address] #### LTTG, LC3, LC4, KEON, LIMEL, LACEZ #### Testing performed at [address] [address] #### [id number], LACCGA #### Testing performed at [facility] #### LANCA #### Testing performed at [address] [address] Testing performed at [facility] PERINUCLEAR (P-ANCA) 1:80 [facility] Comment on above: Result Comment: Refe rence range: Neg:<1:20 Unit: titer (NOTE) The presence of positive fluorescence exhibiting P-ANCA or C-ANCA patterns alone is not specific for the diagnosis of Gloria's Granulomatosis (WG) or microscopic polyangiitis. Decisions about treatment should not be based solely on ANCA IFA results. The [employer] Consensus recommends follow up testing of positive sera with both VT-3 and MPO-ANCA enzyme immunoassays. As many as 5% serum samples are positive only by EIA. Ref. AM J Clin Pathol 1999;111:507-513. Performed By: #### C REACT, CPK, CMPF, ESR, URIC, ACBC #### Testing performed at [address] [address] #### LTTG, LC3, LC4, KEON, LIMEL, LACEZ #### Testing performed at [address] [address] #### [id number], LACCGA #### Testing performed at [facility] #### LANCA #### Testing performed at [address] [address] Testing performed at [facility] CCP AB IGG IGAon 03-02-2021 ACC AB IGG IGA 3 Normal [facility] Comment on above: Result Comment: Refe rence range: 0 to 19 Unit: units (NOTE) Negative <20 Weak positive 20 - 39 Moderate positive 40 - 59 Strong positive >59 PERFORMED AT [facility] Performed By: #### C REACT, CPK, CMPF, ESR, URIC, ACBC #### [place] [address] #### LTTG, LC3, LC4, KEON, LIMEL, LACEZ #### Testing performed at [address] [address] #### [id number], LACCGA #### Testing performed at [facility] #### LANCA #### [place] [address] Testing performed at [facility] VIT D, 1,25 DIHYDROXon 03-02 VIT. D 1,25 62.7 Normal [facility] Comment on above: Result Comment: Refe rence range: 19.9 to 79.3 Unit: pg/mL PERFORMED AT [facility] Performed By: #### C REACT, CPK, CMPF, ESR, URIC, ACBC #### [place] [address] #### LTTG, LC3, LC4, KEON, LIMEL, LACEZ #### [place] [address] #### [id number], LACCGA #### Testing performed at [facility] #### LANCA #### [place] [address] Testing performed at [facility] *RFLX-ANAon 03-01-2021 ANTI-CENTROMERE B AB <0.2 Normal [facility] Comment on above: Result Comment: Refe rence range: 0.0 to 0.9 Unit: AI Performed By: #### C REACT, CPK, CMPF, ESR, URIC, ACBC #### Testing performed at [address] [address] #### LTTG, LC3, LC4, KEON, LIMEL, LACEZ #### Testing performed at [address] [address] #### [id number], LACCGA #### Testing performed at [facility] #### LANCA #### Testing performed at [address] [address] Testing performed at [facility] ANTI-DNA (DS) 4 Normal [facility] Comment on above: Result Comment: Refe rence range: 0 to 9 Unit: IU/mL (NOTE) Negative <5 Equivocal 5 - 9 Positive >9 Performed By: #### C REACT, CPK, CMPF, ESR, URIC, ACBC #### [place] [address] #### LTTG, LC3, LC4, KEON, LIMEL, LACEZ #### Testing performed at [address] [address] #### [id number], LACCGA #### Testing performed at [facility] #### LANCA #### Testing performed at [address] [address] Testing performed at [facility] ANTI-NICKY-[address] [facility] Comment on above: Result Comment: Refe rence range: 0.0 to 0.9 Unit: AI Performed By: #### C REACT, CPK, CMPF, ESR, URIC, ACBC #### Testing performed at [address] [address] #### LTTG, LC3, LC4, KEON, LIMEL, LACEZ #### Testing performed at [address] [address] #### [id number], LACCGA #### Testing performed at [facility] #### LANCA #### Testing performed at [facility], [address] [address] Testing performed at [facility] ANTI-SS-A <0.2 [facility] Comment on above: Result Comment: Refe rence range: 0.0 to 0.9 Unit: AI Performed By: #### C REACT, CPK, CMPF, ESR, URIC, ACBC #### [place] [address] #### LTTG, LC3, LC4, KEON, LIMEL, LACEZ #### Testing performed at [address] [address] #### [id number], LACCGA #### Testing performed at [facility] #### LANCA #### Testing performed at [address] [address] Testing performed at [facility] ANTI-SS-B <0.2 [facility] Comment on above: Result Comment: Refe rence range: 0.0 to 0.9 Unit: AI Performed By: #### C REACT, CPK, CMPF, ESR, URIC, ACBC #### Testing performed at [address] [address] #### LTTG, LC3, LC4, KEON, LIMEL, LACEZ #### Testing performed at [address] [address] #### [id number], LACCGA #### Testing performed at [facility] #### LANCA #### Testing performed at [address] [address] Testing performed at [facility] Antichromatin IgG, Antibodies >8.0 [facility] Comment on above: Result Comment: Refe rence range: 0.0 to 0.9 Unit: AI PERFORMED AT [facility] Performed By: #### C REACT, CPK, CMPF, ESR, URIC, ACBC #### Testing performed at [address] [address] #### LTTG, LC3, LC4, KEON, LIMEL, LACEZ #### Testing performed at [facility] [address] [place], [place] [address] [place] [address] [place] [address] #### [id number], LACCGA #### Testing performed at [facility] #### LANCA #### Testing performed [address] [place] [address] Testing performed at [facility] SEWER PIPE LAYER AB <0.2 [facility] Comment on above: Result Comment: Refe rence range: 0.0 to 0.9 Unit: AI Performed By: #### C REACT, CPK, CMPF, ESR, URIC, ACBC #### Testing performed at [address] [address] #### LTTG, LC3, LC4, KEON, LIMEL, LACEZ #### Testing performed at [address] [place] [address] #### [id number], LACCGA #### Testing performed at [facility] #### LANCA #### Testing performed at [address] [place] [address] Testing performed at [facility] SCL-[address] <[address]2 [facility] Comment on above: Result Comment: Refe rence range: 0.0 to 0.9 Unit: AI Performed By: #### C REACT, CPK, CMPF, ESR, URIC, ACBC #### Testing performed at [address] [address] #### LTTG, LC3, LC4, KEON, LIMEL, LACEZ #### Testing performed at [address] [place] [address] #### [id number], LACCGA #### Testing performed at [facility] #### LANCA #### Testing performed [address] [facility] [place] [address] Testing performed at [facility] SEE BELOW: Comment [facility] Comment on above: Result Comment: (NOT E) Autoantibody Disease Association Condition Frequency --------- Antinuclear Antibody, SLE, mixed connective Direct (AKASH-D) tissue diseases --------- dsDNA SLE 40 - 60% --------- Chromatin Drug induced SLE 90% SLE 48 - 97% --------- SSA (Ro) SLE 25 - 35% Sjogren's Syndrome 40 - 70% Lupus 100% --------- SSB (La) SLE 10% Sjogren's Syndrome 30% --------- Sm (anti-Fu) SLE 15 - 30% --------- SEWER PIPE LAYER Mixed Connective Tissue Disease 95% (U1 nRNP, SLE 30 - 50% anti-ribonucleoprotein) Polymyositis and/or Dermatomyositis 20% --------- Scl-70 (antiDNA Scleroderma (diffuse) 20 - 35% topoisomerase) Crest 13% --------- Nicky-1 Polymyositis and/or Dermatomyositis 20 - 40% --------- Centromere B Scleroderma - Crest variant 80% Performed By: #### C REACT, CPK, CMPF, ESR, URIC, ACBC #### [place] [address] #### LTTG, LC3, LC4, KEON, LIMEL, LACEZ #### Testing performed at [address] [address] #### [id number], LACCGA #### Testing performed at [facility] #### LANCA #### Testing performed at [address] [place] [address] Testing performed at [facility] FU AB <0.2 Normal [facility] Comment on above: Result Comment: Refe rence range: 0.0 to 0.9 Unit: AI Performed By: #### C REACT, CPK, CMPF, ESR, URIC, ACBC #### Testing performed at [place] [id number] #### LTTG, LC3, LC4, KEON, LIMEL, LACEZ #### Testing performed at [place] [address] [place] [address] #### [id number], LACCGA #### Testing performed at [facility] #### LANCA #### Testing performed at [place] [address] [place] [address] Testing performed at [facility] ANGIO-CONVERTING ENZon 03-[address] [facility] Comment on above: Result Comment: Refe rence range: 14 to 82 Unit: U/L PERFORMED AT [facility] Performed By: #### C REACT, CPK, CMPF, ESR, URIC, ACBC #### Testing performed at [address] [address] #### LTTG, LC3, LC4, KEON, LIMEL, LACEZ #### Testing performed [address] [place] [address] #### [id number], LACCGA #### Testing performed at [facility] #### LANCA #### Testing performed [address] [place] [address] Testing performed at [facility] COMPLEMENT C3on 03-01-[address] [facility] Comment on above: Result Comment: Refe rence range: 82 to 167 Unit: mg/dL PERFORMED AT [facility] Performed By: #### C REACT, CPK, CMPF, ESR, URIC, ACBC #### Testing performed at [address] [place] [address] #### LTTG, LC3, LC4, KEON, LIMEL, LACEZ #### Testing performed [address] [place] [address] #### [id number], LACCGA #### Testing performed at [facility] #### LANCA #### Testing performed at [place] [address] [address] [facility] [place] [address] Testing performed at [facility] COMPLEMENT C4on 03-01-2021 C4 20 Normal [facility] Comment on above: Result Comment: Refe rence range: 12 to 38 Unit: mg/dL PERFORMED AT [facility] Performed By: #### C REACT, CPK, CMPF, ESR, URIC, ACBC #### Testing performed at [place] [id number] #### LTTG, LC3, LC4, KEON, LIMEL, LACEZ #### Testing performed at [address] [place] [address] #### [id number], LACCGA #### Testing performed at [facility] #### LANCA #### Testing performed at [address] [address] Testing performed at [facility] ISATU AND PE, SERUMon 03-01-20 Albumin [Mass/Vol] 3.8 g/dL Normal [facility] Comment on above: Result Comment: Refe rence range: 2.9 to 4.4 Unit: g/dL Performed By: #### C REACT, CPK, CMPF, ESR, URIC, ACBC #### [place] [address] #### LTTG, LC3, LC4, KEON, LIMEL, LACEZ #### Testing performed at [address] [address] #### [id number], LACCGA #### Testing performed at [facility] #### LANCA #### Testing performed at [address] [place] [address] Testing performed at [facility] Albumin/Globulin [Mass ratio] 1.3 {ratio} Normal [facility] Comment on above: Result Comment: Refe rence range: 0.7 to 1.7 Performed By: #### C REACT, CPK, CMPF, ESR, URIC, ACBC #### [place] [address] #### LTTG, LC3, LC4, KEON, LIMEL, LACEZ #### Testing performed at [address] [place] [address] #### [id number], LACCGA #### Testing performed at [facility] #### LANCA #### Testing performed at [address] [place] [address] Testing performed at [facility] [id number] 0.3 [facility] Comment on above: Result Comment: Refe rence range: 0.0 to 0.4 Unit: g/dL Performed By: #### C REACT, CPK, CMPF, ESR, URIC, ACBC #### Testing performed at [place] [id number] #### LTTG, LC3, LC4, KEON, LIMEL, LACEZ #### Testing performed at [address] [place] [address] #### [id number], LACCGA #### Testing performed at [facility] #### LANCA #### Testing performed at [address] [address] Testing performed at [facility] [id number] 0.8 [facility] Comment on above: Result Comment: Refe rence range: 0.4 to 1.0 Unit: g/dL Performed By: #### C REACT, CPK, CMPF, ESR, URIC, ACBC #### Testing performed at [address] [address] #### LTTG, LC3, LC4, KEON, LIMEL, LACEZ #### Testing performed at [address] [place] [address] #### [id number], LACCGA #### Testing performed at [facility] #### LANCA #### Testing performed at [address] [place] [address] Testing performed at [facility] BETA GLOBULIN 1.0 [facility] Comment on above: Result Comment: Refe rence range: 0.7 to 1.3 Unit: g/dL Performed By: #### C REACT, CPK, CMPF, ESR, URIC, ACBC #### Testing performed at [address] [address] #### LTTG, LC3, LC4, KEON, LIMEL, LACEZ #### Testing performed at [address] [place] [address] #### [id number], LACCGA #### Testing performed at [facility] #### LANCA #### Testing performed [address] [place] [address] Testing performed at [facility] GAMMA GLOBULIN 0.9 Normal [facility] Comment on above: Result Comment: Refe rence range: 0.4 to 1.8 Unit: g/dL Performed By: #### C REACT, CPK, CMPF, ESR, URIC, ACBC #### [place] [address] #### LTTG, LC3, LC4, KEON, LIMEL, LACEZ #### Testing performed at [address] [address] #### [id number], LACCGA #### Testing performed at [facility] #### LANCA #### Testing performed [address] [facility] [place] [address] Testing performed at [facility] GLOBULIN, TOTAL 3.0 Normal [facility] Comment on above: Result Comment: Refe rence range: 2.2 to 3.9 Unit: g/dL Performed By: #### C REACT, CPK, CMPF, ESR, URIC, ACBC #### Testing performed at [place] [id number] #### LTTG, LC3, LC4, KEON, LIMEL, LACEZ #### Testing performed [address] [facility] [place] [address] #### [id number], LACCGA #### Testing performed at [facility] #### LANCA #### Testing performed at [address] [place] [address] Testing performed at [facility] IgA [Mass/Vol] 267 mg/dL Normal [facility] Comment on above: Result Comment: Refe rence range: 87 to 352 Unit: mg/dL Performed By: #### C REACT, CPK, CMPF, ESR, URIC, ACBC #### Testing performed at [address] [address] #### LTTG, LC3, LC4, KEON, LIMEL, LACEZ #### Testing performed at [address] [place] [address] #### [id number], LACCGA #### Testing performed at [facility] #### LANCA #### Testing performed at [address] [address] Testing performed at [facility] IgG [Mass/Vol] 946 mg/dL Normal [facility] Comment on above: Result Comment: Refe rence range: 586 to 1602 Unit: mg/dL Performed By: #### C REACT, CPK, CMPF, ESR, URIC, ACBC #### Testing performed at [address] [address] #### LTTG, LC3, LC4, KEON, LIMEL, LACEZ #### Testing performed at [address] [place] [address] #### [id number], LACCGA #### Testing performed at [facility] #### LANCA #### Testing performed [address] [place] [address] Testing performed at [facility] IgM [Mass/Vol] 110 mg/dL Normal [facility] Comment on above: Result Comment: Refe rence range: 26 to 217 Unit: mg/dL Performed By: #### C REACT, CPK, CMPF, ESR, URIC, ACBC #### Testing performed at [address] [address] #### LTTG, LC3, LC4, KEON, LIMEL, LACEZ #### Testing performed at [address] [address] #### [id number], LACCGA #### Testing performed at [facility] #### LANCA #### Testing performed at [address] [address] Testing performed at [facility] IMMUNOFIX: Comment: [facility] Comment on above: Result Comment: (NOT E) Presence of monoclonal protein is unclear at this time. Suggest repeat in 3 to 6 months if clinically indicated. Performed By: #### C REACT, CPK, CMPF, ESR, URIC, ACBC #### Testing performed at [address] [address] #### LTTG, LC3, LC4, KEON, LIMEL, LACEZ #### Testing performed at [address] [address] #### [id number], LACCGA #### Testing performed at [facility] #### LANCA #### Testing performed at [address] [address] Testing performed at [facility] M-SPIKE Not Observed [facility] Comment on above: Result Comment: Refe rence range: Not Observed Unit: g/dL Performed By: #### C REACT, CPK, CMPF, ESR, URIC, ACBC #### Testing performed at [address] [address] #### LTTG, LC3, LC4, KEON, LIMEL, LACEZ #### Testing performed at [address] [address] #### [id number], LACCGA #### Testing performed at [facility] #### LANCA #### Testing performed at [address] [address] Testing performed at [facility] PLEASE NOTE: Comment [facility] Comment on above: Result Comment: (NOT E) Protein electrophoresis scan will follow via computer, mail, or muffler installer delivery. PERFORMED AT [facility] Performed By: #### C REACT, CPK, CMPF, ESR, URIC, ACBC #### Testing performed at [address] [address] #### LTTG, LC3, LC4, KEON, LIMEL, LACEZ #### Testing performed at [address] [address] #### [id number], LACCGA #### Testing performed at [facility] #### LANCA #### Testing performed at [address] [address] Testing performed at [facility] Protein [Mass/Vol] 6.8 g/dL Normal [facility] Comment on above: Result Comment: Refe rence range: 6.0 to 8.5 Unit: g/dL Performed By: #### C REACT, CPK, CMPF, ESR, URIC, ACBC #### Testing performed at [address] [address] #### LTTG, LC3, LC4, KEON, LIMEL, LACEZ #### Testing performed at [address] [address] #### [id number], LACCGA #### Testing performed at [facility] #### LANCA #### Testing performed at [address] [address] Testing performed at [facility] B-[id number]-YPI,IGAon 2020 TTG- IGA <2 Normal [facility] Comment on above: Result Comment: Refe rence range: 0 to 3 Unit: U/mL (NOTE) Negative 0 - 3 Weak Positive 4 - 10 Positive >10 Tissue Transglutaminase (tTG) has been identified as the endomysial antigen. Studies have demonstr- ated that endomysial IgA antibodies have over 99% specificity for gluten sensitive enteropathy. PERFORMED AT [facility] Performed By: #### C REACT, CPK, CMPF, ESR, URIC, ACBC #### Testing performed at [address] [address] #### LTTG, LC3, LC4, KEON, LIMEL, LACEZ #### Testing performed at [address] [place] [address] #### [id number], LACCGA #### Testing performed at [facility] #### LANCA #### Testing performed at [address] [place] [address] Testing performed at [facility] 25 0H VITAMIN D LEVELon 02-04 25 0H VITAMIN D LEVEL 22.5 NG/ML Low >30 [facility] Comment on above: Result Comment: DEFICIENT <20 NG/ML INSUFFICIENT 20-<30 NG/ML SUFFICIENT 30-100 NG/ML POTENTIAL TOXICITY >100 NG/ML Performed By: #### C REACT, CPK, CMPF, ESR, URIC, ACBC #### Testing performed at [address] [address] #### LTTG, LC3, LC4, KEON, LIMEL, LACEZ #### Testing performed at [address] [address] #### [id number], LACCGA #### Testing performed at [facility] #### LANCA #### Testing performed at [address] [address] Testing performed at [facility] C REACTIVE PROTEINon 021 CRP [Mass/Vol] mg/L Normal 0-10.0 [facility] Comment on above: Performed By: #### C REACT, CPK, CMPF, ESR, URIC, ACBC #### Testing performed at [address] [address] #### LTTG, LC3, LC4, KEON, LIMEL, LACEZ #### Testing performed at [address] [place] [address] #### [id number], LACCGA #### Testing performed at [facility] #### LANCA #### Testing performed at [address] [address] Testing performed at [facility] C REACTIVE PROTEINOrdered By : Allen Godinez on 02-28-2021 CRP [Mass/Vol] mg/L 0 - 10.0 MG/L CBCon 02-28-2021 ABSOLUTE BAS 0.0 10*3/uL Normal 0.0-0.2 [facility] Comment on above: Performed By: #### C REACT, CPK, CMPF, ESR, URIC, ACBC #### [place] [address] #### LTTG, LC3, LC4, KEON, LIMEL, LACEZ #### Testing performed at [address] [address] #### [id number], LACCGA #### Testing performed at [facility] #### LANCA #### Testing performed at [address] [address] Testing performed at [facility] ABSOLUTE EOS 0.20 10*3/uL Normal 0.0-0.7 [facility] Comment on above: Performed By: #### C REACT, CPK, CMPF, ESR, URIC, ACBC #### [place] [address] #### LTTG, LC3, LC4, KEON, LIMEL, LACEZ #### Testing performed at [address] [address] #### [id number], LACCGA #### Testing performed at [facility] #### LANCA #### Testing performed at [address] [address] Testing performed at [facility] ABSOLUTE NEUTROPHIL COUNT 3.6 10*3/uL Normal 1.4-6.5 [facility] Comment on above: Performed By: #### C REACT, CPK, CMPF, ESR, URIC, ACBC #### Testing performed at [address] [address] #### LTTG, LC3, LC4, KEON, LIMEL, LACEZ #### Testing performed at [address] [place] [address] #### [id number], LACCGA #### Testing performed at [facility] #### LANCA #### Testing performed at [address] [place] [address] Testing performed at [facility] Basophils/100 WBC (Bld) 0.6 % Normal 0.0-2.0 [facility] Comment on above: Performed By: #### C REACT, CPK, CMPF, ESR, URIC, ACBC #### Testing performed at [address] [place] [address] #### LTTG, LC3, LC4, KEON, LIMEL, LACEZ #### Testing performed at [address] [place] [address] #### [id number], LACCGA #### Testing performed at [facility] #### LANCA #### Testing performed at [address] [address] Testing performed at [facility] DTYPE AUTO DIFF Normal [facility] Comment on above: Performed By: #### C REACT, CPK, CMPF, ESR, URIC, ACBC #### Testing performed at [address] [address] #### LTTG, LC3, LC4, KEON, LIMEL, LACEZ #### Testing performed at [address] [place] [address] #### [id number], LACCGA #### Testing performed at [facility] #### LANCA #### Testing performed at [facility] [address] [place], [place] [address] [place] [address] Testing performed at [facility] Eosinophils/100 WBC (Bld) 2.8 % Normal 0.0-11.0 [facility] Comment on above: Performed By: #### C REACT, CPK, CMPF, ESR, URIC, ACBC #### Testing performed at [address] [address] #### LTTG, LC3, LC4, KEON, LIMEL, LACEZ #### Testing performed at [address] [place] [address] #### [id number], LACCGA #### Testing performed at [facility] #### LANCA #### Testing performed at [address] [place] [address] Testing performed at [facility] Lymphocytes (Bld) [#/Vol] 1.40 10*3/uL Normal 1.2-3.4 [facility] Comment on above: Performed By: #### C REACT, CPK, CMPF, ESR, URIC, ACBC #### Testing performed at [address] [address] #### LTTG, LC3, LC4, KEON, LIMEL, LACEZ #### Testing performed at [address] [place] [address] #### [id number], LACCGA #### Testing performed at [facility] #### LANCA #### Testing performed at [address] [place] [address] Testing performed at [facility] Lymphocytes/100 WBC (Bld) 25.5 % Normal 20.0-55.0 [facility] Comment on above: Performed By: #### C REACT, CPK, CMPF, ESR, URIC, ACBC #### Testing performed at [address] [address] #### LTTG, LC3, LC4, KEON, LIMEL, LACEZ #### Testing performed at [address] [place] [address] #### [id number], LACCGA #### Testing performed at [facility] #### LANCA #### Testing performed at [place] [address] [place] [address] Testing performed at [facility] Monocytes (Bld) [#/Vol] 0.3 10*3/uL Normal 0.0-0.7 [facility] Comment on above: Performed By: #### C REACT, CPK, CMPF, ESR, URIC, ACBC #### [place] [address] #### LTTG, LC3, LC4, KEON, LIMEL, LACEZ #### Testing performed at [place] [address] [place] [address] #### [id number], LACCGA #### Testing performed at [facility] #### LANCA #### Testing performed [address] [place] [address] Testing performed at [facility] Monocytes/100 WBC (Bld) 6.0 % Normal 0.0-10.0 [facility] Comment on above: Performed By: #### C REACT, CPK, CMPF, ESR, URIC, ACBC #### Testing performed at [address] [address] #### LTTG, LC3, LC4, KEON, LIMEL, LACEZ #### Testing performed at [address] [place] [address] #### [id number], LACCGA #### Testing performed at [facility] #### LANCA #### Testing performed at [address] [place] [address] Testing performed at [facility] Neutrophils/100 WBC (Bld) 65.1 % Normal 37.0-75.0 [facility] Comment on above: Performed By: #### C REACT, CPK, CMPF, ESR, URIC, ACBC #### Testing performed at [address] [address] #### LTTG, LC3, LC4, KEON, LIMEL, LACEZ #### Testing performed at [address] [address] #### [id number], LACCGA #### Testing performed at [facility] #### LANCA #### Testing performed at [address] [address] Testing performed at [facility] Erythrocyte distribution width (RBC) [Ratio] 12.7 % Normal 11.5-14.5 [facility] Comment on above: Performed By: #### C REACT, CPK, CMPF, ESR, URIC, ACBC #### [place] [address] #### LTTG, LC3, LC4, KEON, LIMEL, LACEZ #### Testing performed at [address] [address] #### [id number], LACCGA #### Testing performed at [facility] #### [place] #### Testing performed at [address] [address] Testing performed at [facility] Hematocrit (Bld) [Volume fraction] 39.2 % Normal 36.0-48.0 [facility] Comment on above: Performed By: #### C REACT, CPK, CMPF, ESR, URIC, ACBC #### Testing performed at [address] [address] #### LTTG, LC3, LC4, KEON, LIMEL, LACEZ #### Testing performed at [address] [address] #### [id number], LACCGA #### Testing performed at [facility] #### LANCA #### Testing performed at [address] [address] Testing performed at [facility] Hemoglobin (Bld) [Mass/Vol] 12.8 g/dL Normal 12.0-16.0 [facility] Comment on above: Performed By: #### C REACT, CPK, CMPF, ESR, URIC, ACBC #### Testing performed at [address] [address] #### LTTG, LC3, LC4, KEON, LIMEL, LACEZ #### Testing performed at [address] [address] #### [id number], LACCGA #### Testing performed at [facility] #### [place] #### Testing performed at [address] [address] Testing performed at [facility] MCH (RBC) [Entitic mass] 31.4 pg Normal 26.0-35.0 [facility] Comment on above: Performed By: #### C REACT, CPK, CMPF, ESR, URIC, ACBC #### Testing performed at [address] [address] #### LTTG, LC3, LC4, KEON, LIMEL, LACEZ #### Testing performed at [address] [address] #### [id number], LACCGA #### Testing performed at [facility] #### [place] #### Testing performed at [address] [address] Testing performed at [facility] MCHC (RBC) [Mass/Vol] 32.6 g/dL Normal 27.0-37.0 [facility] Comment on above: Performed By: #### C REACT, CPK, CMPF, ESR, URIC, ACBC #### Testing performed at [address] [address] #### LTTG, LC3, LC4, KEON, LIMEL, LACEZ #### Testing performed at [address] [address] #### [id number], LACCGA #### Testing performed at [facility] #### [place] #### Testing performed at [address] [address] Testing performed at [facility] MCV (RBC) [Entitic vol] 96.1 fL Normal 80.0-100.0 [facility] Comment on above: Performed By: #### C REACT, CPK, CMPF, ESR, URIC, ACBC #### Testing performed at [address] [address] #### LTTG, LC3, LC4, KEON, LIMEL, LACEZ #### Testing performed at [address] [place] [address] #### [id number], LACCGA #### Testing performed at [facility] #### [place] #### Testing performed at [address] [address] Testing performed at [facility] Platelet mean volume (Bld) [Entitic vol] 7.4 fL Normal 7.4-11.0 [facility] Comment on above: Performed By: #### C REACT, CPK, CMPF, ESR, URIC, ACBC #### Testing performed at [address] [address] #### LTTG, LC3, LC4, KEON, LIMEL, LACEZ #### Testing performed at [address] [address] #### [id number], LACCGA #### Testing performed at [facility] #### [place] #### Testing performed at [address] [address] Testing performed at [facility] Platelets (Bld) [#/Vol] 284 10*3/uL Normal 130.0-400.0 [facility] Comment on above: Performed By: #### C REACT, CPK, CMPF, ESR, URIC, ACBC #### Testing performed at [address] [address] #### LTTG, LC3, LC4, KEON, LIMEL, LACEZ #### Testing performed at [address] [address] #### [id number], LACCGA #### Testing performed at [facility] #### [place] #### Testing performed at [address] [address] Testing performed at [facility] RBC (Bld) [#/Vol] 4.08 10*6/uL Normal 4.0-5.4 [facility] Comment on above: Performed By: #### C REACT, CPK, CMPF, ESR, URIC, ACBC #### Testing performed at [address] [address] #### LTTG, LC3, LC4, KEON, LIMEL, LACEZ #### Testing performed at [address] [address] #### [id number], LACCGA #### Testing performed at [facility] #### [place] #### Testing performed at [address] [address] Testing performed at [facility] WBC (Bld) [#/Vol] 5.5 10*3/uL Normal 3.6-11.0 [facility] Comment on above: Performed By: #### C REACT, CPK, CMPF, ESR, URIC, ACBC #### Testing performed at [address] [address] #### LTTG, LC3, LC4, KEON, LIMEL, LACEZ #### Testing performed at [address] [address] #### [id number], LACCGA #### Testing performed at [facility] #### [place] #### Testing performed at [address] [address] Testing performed at [facility] CBC, EDIF, PLATELETOrdered B y: Allen Godinez on 02-28-2021 ABSOLUTE BASOPHIL COUNT 0.0 10*3/uL 0.0 - 0.2 10*3/uL [facility] Basophils/100 WBC (Bld) 0.6 % 0.0 - 2.0 % [facility] Differential cell count method Nom (Bld) AUTO DIFF % [facility] Eosinophils (Bld) [#/Vol] 0.20 10*3/uL 0.0 - 0.7 10*3/uL Eosinophils/100 WBC (Bld) 2.8 % 0.0 - 11.0 % Erythrocyte distribution width (RBC) [Ratio] 12.7 % 11.5 - 14.5 % Hematocrit (Bld) [Volume fraction] 39.2 % 36.0 - 48.0 % Hemoglobin (Bld) [Mass/Vol] 12.8 g/dL Lymphocytes (Bld) [#/Vol] 1.40 10*3/uL 1.2 - 3.4 10*3/uL [facility] Lymphocytes/100 WBC (Bld) 25.5 % 20.0 - 55.0 % MCH (RBC) [Entitic mass] 31.4 pg 26.0 - 35.0 PG MCHC (RBC) [Mass/Vol] 32.6 g/dL [facility] MCV (RBC) [Entitic vol] 96.1 fL Monocytes (Bld) [#/Vol] 0.3 10*3/uL 0.0 - 0.7 10*3/uL Monocytes/100 WBC (Bld) 6.0 % 0.0 - 10.0 % Neutrophils (Bld) [#/Vol] 3.6 10*3/uL 1.4 - 6.5 10*3/uL [facility] Neutrophils/100 WBC (Bld) 65.1 % 37.0 - 75.0 % Platelet mean volume (Bld) [Entitic vol] 7.4 fL Platelets (Bld) [#/Vol] 284 10*3/uL 130.0 - 400.0 10*3/uL [facility] RBC (Bld) [#/Vol] 4.08 10*6/uL 4.0 - 5.4 10*6/uL [facility] WBC (Bld) [#/Vol] 5.5 10*3/uL 3.6 - 11.0 10*3/uL [facility] CKOrdered By: Allen villarreal on 02-28-2021 CK [Catalytic activity/Vol] 128 U/L CMP FASTINGon 02-28-2021 A:G RATIO 1.3 RATIO Normal 1.3-2.2 [facility] Comment on above: Performed By: #### C REACT, CPK, CMPF, ESR, URIC, ACBC #### Testing performed at [address] [address] #### LTTG, LC3, LC4, KEON, LIMEL, LACEZ #### Testing performed at [address] [place] [address] #### [id number], LACCGA #### Testing performed at [facility] #### [place] #### Testing performed at [address] [address] Testing performed at [facility] ALBUMIN 4.2 G/dl Normal 3.5-5.0 [facility] Comment on above: Performed By: #### C REACT, CPK, CMPF, ESR, URIC, ACBC #### Testing performed at [address] [address] #### LTTG, LC3, LC4, KEON, LIMEL, LACEZ #### Testing performed at [address] [address] #### [id number], LACCGA #### Testing performed at [facility] #### [place] #### Testing performed at [address] [place] [address] Testing performed at [facility] ALP [Catalytic activity/Vol] 75 U/L Normal 38-126 [facility] Comment on above: Performed By: #### C REACT, CPK, CMPF, ESR, URIC, ACBC #### Testing performed at [address] [address] #### LTTG, LC3, LC4, KEON, LIMEL, LACEZ #### Testing performed at [address] [place] [address] #### [id number], LACCGA #### Testing performed at [facility] #### [place] #### Testing performed at [address] [address] Testing performed at [facility] ALT [Catalytic activity/Vol] 15 U/L Normal 14-54 [facility] Comment on above: Performed By: #### C REACT, CPK, CMPF, ESR, URIC, ACBC #### Testing performed at [address] [address] #### LTTG, LC3, LC4, KEON, LIMEL, LACEZ #### Testing performed at [address] [place] [address] #### [id number], LACCGA #### Testing performed at [facility] #### [place] #### Testing performed at [address] [address] Testing performed at [facility] AST [Catalytic activity/Vol] 18 U/L Normal 15-41 [facility] Comment on above: Performed By: #### C REACT, CPK, CMPF, ESR, URIC, ACBC #### Testing performed at [address] [address] #### LTTG, LC3, LC4, KEON, LIMEL, LACEZ #### Testing performed at [address] [address] #### [id number], LACCGA #### Testing performed at [facility] #### [place] #### Testing performed at [address] [address] Testing performed at [facility] Bilirubin [Mass/Vol] 0.8 mg/dL Normal 0.2-1.2 [facility] Comment on above: Performed By: #### C REACT, CPK, CMPF, ESR, URIC, ACBC #### Testing performed at [address] [address] #### LTTG, LC3, LC4, KEON, LIMEL, LACEZ #### Testing performed at [facility] [address] [place] [address] #### [id number], LACCGA #### Testing performed at [facility] #### [place] #### Testing performed at [facility] [address] [place], [place] [address] [place] [address] Testing performed at [facility] Creatinine [Mass/Vol] 0.81 mg/dL Normal 0.52-1.04 [facility] Comment on above: Performed By: #### C REACT, CPK, CMPF, ESR, URIC, ACBC #### Testing performed at [address] [address] #### LTTG, LC3, LC4, KEON, LIMEL, LACEZ #### Testing performed at [address] [place] [address] #### [id number], LACCGA #### Testing performed at [facility] #### [place] #### Testing performed at [address] [place] [address] Testing performed at [facility] EST. GFR, >60 Normal [facility] Comment on above: Performed By: #### C REACT, CPK, CMPF, ESR, URIC, ACBC #### Testing performed at [address] [address] #### LTTG, LC3, LC4, KEON, LIMEL, LACEZ #### Testing performed at [address] [place] [address] #### [id number], LACCGA #### Testing performed at [facility] #### [place] #### Testing performed at [address] [place] [address] Testing performed at [facility] EST. GFR,Non >60 Normal [facility] Comment on above: Performed By: #### C REACT, CPK, CMPF, ESR, URIC, ACBC #### Testing performed at [address] [address] #### LTTG, LC3, LC4, KEON, LIMEL, LACEZ #### Testing performed at [address] [address] #### [id number], LACCGA #### Testing performed at [facility] #### [place] #### Testing performed at [address] [address] Testing performed at [facility] GFR Information Average GFR for 60-6 9 years old = 85. Normal [facility] Comment on above: Result Comment: Systems Admin samuel Kidney disease, GFR = <60. Kidney failure, GFR = <15. The GFR estimate is not adjusted for extreme body surface area or acute process, nor has it been validated for women or ethnic groups other than and . Performed By: #### C REACT, CPK, CMPF, ESR, URIC, ACBC #### Testing performed at [address] [address] #### LTTG, LC3, LC4, KEON, LIMEL, LACEZ #### Testing performed at [address] [address] #### [id number], LACCGA #### Testing performed at [facility] #### [place] #### Testing performed at [address] [address] Testing performed at [facility] Protein [Mass/Vol] 7.4 g/dL Normal 6.3-8.2 [facility] Comment on above: Performed By: #### C REACT, CPK, CMPF, ESR, URIC, ACBC #### Testing performed at [address] [address] #### LTTG, LC3, LC4, KEON, LIMEL, LACEZ #### Testing performed at [address] [address] #### [id number], LACCGA #### Testing performed at [facility] #### [place] #### Testing performed at [place] [address] [place] [address] Testing performed at [facility] Urea nitrogen [Mass/Vol] 21 mg/dL High 7-20 [facility] Comment on above: Performed By: #### C REACT, CPK, CMPF, ESR, URIC, ACBC #### Testing performed at [address] [address] #### LTTG, LC3, LC4, KEON, LIMEL, LACEZ #### Testing performed at [facility] [address] [place] [address] #### [id number], LACCGA #### Testing performed at [facility] #### [place] #### Testing performed at [address] [place] [address] Testing performed at [facility] Calcium [Mass/Vol] 9.2 mg/dL Normal 8.4-10.2 [facility] Comment on above: Performed By: #### C REACT, CPK, CMPF, ESR, URIC, ACBC #### Testing performed at [address] [place] [address] #### LTTG, LC3, LC4, KEON, LIMEL, LACEZ #### Testing performed at [address] [place] [address] #### [id number], LACCGA #### Testing performed at [facility] #### [place] #### Testing performed at [place] [address] [place] [address] Testing performed at [facility] Chloride [Moles/Vol] 101 mmol/L Normal 98-107 [facility] Comment on above: Performed By: #### C REACT, CPK, CMPF, ESR, URIC, ACBC #### Testing performed at [address] [address] #### LTTG, LC3, LC4, KEON, LIMEL, LACEZ #### Testing performed at [address] [place] [address] #### [id number], LACCGA #### Testing performed at [facility] #### [place] #### Testing performed at [address] [address] Testing performed at [facility] CO2 [Moles/Vol] 26 mmol/L Normal 22-30 [facility] Comment on above: Performed By: #### C REACT, CPK, CMPF, ESR, URIC, ACBC #### Testing performed at [address] [address] #### LTTG, LC3, LC4, KEON, LIMEL, LACEZ #### Testing performed at [address] [address] #### [id number], LACCGA #### Testing performed at [facility] #### [place] #### Testing performed at [address] [address] Testing performed at [facility] Glucose [Mass/Vol] 87 mg/dL Normal 70-100 [facility] Comment on above: Result Comment: NORMAL <100 mg/dL PREDIABETES 101-126 mg/dL DIABETES 126 mg/dL or higher Performed By: #### C REACT, CPK, CMPF, ESR, URIC, ACBC #### Testing performed at [address] [address] #### LTTG, LC3, LC4, KEON, LIMEL, LACEZ #### Testing performed at [address] [address] #### [id number], LACCGA #### Testing performed at [facility] #### [place] #### Testing performed at [address] [address] Testing performed at [facility] Potassium [Moles/Vol] 4.2 mmol/L Normal 3.5-5.1 [facility] Comment on above: Performed By: #### C REACT, CPK, CMPF, ESR, URIC, ACBC #### Testing performed at [address] [address] #### LTTG, LC3, LC4, KEON, LIMEL, LACEZ #### Testing performed at [address] [address] #### [id number], LACCGA #### Testing performed at [facility] #### [place] #### Testing performed at [address] [address] Testing performed at [facility] Sodium [Moles/Vol] 138 mmol/L Normal 136-145 [facility] Comment on above: Performed By: #### C REACT, CPK, CMPF, ESR, URIC, ACBC #### Testing performed at [address] [address] #### LTTG, LC3, LC4, KEON, LIMEL, LACEZ #### Testing performed at [address] [address] #### [id number], LACCGA #### Testing performed at [facility] #### [place] #### Testing performed at [address] [address] Testing performed at [facility] COMPREHENSIVE METABOLIC PANE LOrdered By: Allen Godinez on 02-28-2021 Albumin [Mass/Vol] 4.2 G/dl 3.5 - 5.0 G/dl Albumin/Globulin [Mass ratio] 1.3 {ratio} ALP [Catalytic activity/Vol] 75 U/L ALT [Catalytic activity/Vol] 15 U/L AST [Catalytic activity/Vol] 18 U/L Bilirubin [Mass/Vol] 0.8 mg/dL [facility] Calcium [Mass/Vol] 9.2 mg/dL Chloride [Moles/Vol] 101 mmol/L [facility] CO2 [Moles/Vol] 26 mmol/L Creatinine [Mass/Vol] 0.81 mg/dL [facility] GFR COMMENT Average GFR for 60-6 9 years old = 85. Comment on above: Chronic Kidney disea se, GFR = <60. Kidney failure, GFR = <15. The GFR estimate is not adjusted for extreme body surface area or acute process, nor has it been validated for women or ethnic groups other than and . GFR/1.73 sq M.predicted among blacks MDRD (S/P/Bld) [Vol rate/Area] mL/min/{1.73_m2} ml/min/1.73 sq.m [facility] GFR/1.73 sq M.predicted among non-blacks MDRD (S/P/Bld) [Vol rate/Area] mL/min/{1.73_m2} ml/min/1.73 sq.m Glucose post fast [Mass/Vol] 87 mg/dL Comment on above: NORMAL <100 mg/dL PREDIABETES 101-126 mg/dL DIABETES 126 mg/dL or higher Interpretation and review of laboratory results Abnormal Potassium [Moles/Vol] 4.2 mmol/L [facility] Protein [Mass/Vol] 7.4 g/dL Sodium [Moles/Vol] 138 mmol/L Urea nitrogen [Mass/Vol] 21 mg/dL High CPKon 02-28-2021 CPK 128 IU/L Normal 26-140 [facility] Comment on above: Performed By: #### C REACT, CPK, CMPF, ESR, URIC, ACBC #### Testing performed at [facility] [address] [place] [address] #### LTTG, LC3, LC4, KEON, LIMEL, LACEZ #### Testing performed at [address] [address] #### [id number], LACCGA #### Testing performed at [facility] #### [place] #### Testing performed at [address] [address] Testing performed at [facility] ESRon 02-28-2021 ESR (Bld) [Velocity] 28 mm/h Normal 0-30 [facility] Comment on above: Performed By: #### C REACT, CPK, CMPF, ESR, URIC, ACBC #### Testing performed at [address] [address] #### LTTG, LC3, LC4, KEON, LIMEL, LACEZ #### Testing performed at [address] [address] #### [id number], LACCGA #### Testing performed at [facility] #### [place] #### Testing performed at [address] [address] Testing performed at [facility] No Panel InformationOrdered By: Allen Godinez on 02-28-2021 Interpretation and review of laboratory results Abnormal [facility] SEDIMENTATION RATE, AUTOMATE DOrdered By: Allen Godinez on 02-28-2021 ESR (Bld) [Velocity] 28 mm/h [facility] TSHon 02-28-2021 TSH 1.332 uIU/ML Normal 0.45-5.33 [facility] Comment on above: Performed By: #### C REACT, CPK, CMPF, ESR, URIC, ACBC #### Testing performed at [address] [address] #### LTTG, LC3, LC4, KEON, LIMEL, LACEZ #### Testing performed at [address] [address] #### [id number], LACCGA #### Testing performed at [facility] #### [place] #### Testing performed at [address] [address] Testing performed at [facility] TSHOrdered By: Allen real on 02-28-2021 TSH Qn 1.332 m[IU]/L URIC ACIDon 02-28-2021 Urate [Mass/Vol] 2.9 mg/dL Normal 2.5-6.2 [facility] Comment on above: Performed By: #### C REACT, CPK, CMPF, ESR, URIC, ACBC #### Testing performed at [address] [address] #### LTTG, LC3, LC4, KEON, LIMEL, LACEZ #### [place] [address] #### [id number], LACCGA #### Testing performed at [facility] #### [place] #### Testing performed at [address] [address] Testing performed at [facility] URIC ACIDOrdered By: Allen whitman on 02-28-2021 Urate [Mass/Vol] 2.9 mg/dL [facility] URINALYSIS, MACROOrdered By: Allen Godinez on 02-28-2021 Bilirubin Ql (U) Negative NEGATIVE [facility] Clarity (U) CLOUDY Abnormal CLEAR [facility] Color (U) YELLOW YELLOW [facility] Glucose Test strip (U) [Mass/Vol] Negative NEGATIVE mg/dl [facility] Hemoglobin Ql (U) TRACE-INTACT Abnormal NEGATIVE [facility] Ketones (U) [Mass/Vol] Negative NEGAT TERRANCE mg/dl [facility] Leukocyte esterase Test strip Ql (U) SMALL Abnormal NEGATIVE [facility] Nitrite Ql (U) Positive Abnormal NEGATIVE [facility] pH (U) 6.0 [pH] [facility] Protein Ql (U) Negative NEGATIVE mg/dl [facility] Specific gravity (U) [Rel density] 1.020 [facility] Urobilinogen (U) [Mass/Vol] 0.2 mg/dL [facility] URINE MACROSCOPICon 02-29-20 21 Bilirubin Ql (U) Negative Normal NEGATIVE [facility] Comment on above: Performed By: #### C REACT, CPK, CMPF, ESR, URIC, ACBC #### Testing performed at [address] [address] #### LTTG, LC3, LC4, KEON, LIMEL, LACEZ #### Testing performed at [address] [address] #### [id number], LACCGA #### Testing performed at [facility] #### [place] #### Testing performed at [place] [address] [place] [address] Testing performed at [facility] Clarity (U) CLOUDY Abnormal CLEAR [facility] Comment on above: Performed By: #### C REACT, CPK, CMPF, ESR, URIC, ACBC #### Testing performed at [address] [address] #### LTTG, LC3, LC4, KEON, LIMEL, LACEZ #### Testing performed at [facility] [address] [place] [address] #### [id number], LACCGA #### Testing performed at [facility] #### [place] #### Testing performed at [facility] [address] [place] [address] Testing performed at [facility] Color (U) YELLOW Normal YELLOW [facility] Comment on above: Performed By: #### C REACT, CPK, CMPF, ESR, URIC, ACBC #### Testing performed at [address] [place] [address] #### LTTG, LC3, LC4, KEON, LIMEL, LACEZ #### Testing performed at [facility] [address] [place] [address] #### [id number], LACCGA #### Testing performed at [facility] #### [place] #### Testing performed at [facility] [address] [place] [address] Testing performed at [facility] Glucose Ql (U) Negative Normal NEGATIVE [facility] Comment on above: Performed By: #### C REACT, CPK, CMPF, ESR, URIC, ACBC #### Testing performed at [address] [address] #### LTTG, LC3, LC4, KEON, LIMEL, LACEZ #### Testing performed at [facility] [address] [place] [address] #### [id number], LACCGA #### Testing performed at [facility] #### [place] #### Testing performed at [place] [address] [place] [address] Testing performed at [facility] pH (U) 6.0 [pH] Normal 5.0-7.0 [facility] Comment on above: Performed By: #### C REACT, CPK, CMPF, ESR, URIC, ACBC #### Testing performed at [address] [address] #### LTTG, LC3, LC4, KOEN, LIMEL, LACEZ #### Testing performed at [place] [address] [place] [address] #### [id number], LACCGA #### Testing performed at [facility] #### [place] #### Testing performed at [address] [place] [address] Testing performed at [facility] URINE HEMOGLOBIN TRACE-INTACT Abnormal NEGATIVE [facility] Comment on above: Performed By: #### C REACT, CPK, CMPF, ESR, URIC, ACBC #### Testing performed at [address] [address] #### LTTG, LC3, LC4, KEON, LIMEL, LACEZ #### Testing performed at [address] [place] [address] #### [id number], LACCGA #### Testing performed at [facility] #### [place] #### Testing performed at [address] [place] [address] Testing performed at [facility] URINE KETONE Negative Normal NEGATIVE [facility] [facility] Comment on above: Performed By: #### C REACT, CPK, CMPF, ESR, URIC, ACBC #### Testing performed at [address] [address] #### LTTG, LC3, LC4, KEON, LIMEL, LACEZ #### Testing performed at [address] [place] [address] #### [id number], LACCGA #### Testing performed at [facility] #### LANCA #### Testing performed at [address] [place] [address] Testing performed at [facility] URINE LEUKOTEST SMALL Abnormal NEGATIVE [facility] Comment on above: Performed By: #### C REACT, CPK, CMPF, ESR, URIC, ACBC #### Testing performed at [address] [address] #### LTTG, LC3, LC4, KEON, LIMEL, LACEZ #### Testing performed at [address] [address] #### [id number], LACCGA #### Testing performed at [facility] #### LANCA #### Testing performed at [address] [address] Testing performed at [facility] URINE NITRATES Positive Abnormal NEGATIVE [facility] Comment on above: Performed By: #### C REACT, CPK, CMPF, ESR, URIC, ACBC #### Testing performed at [address] [address] #### LTTG, LC3, LC4, KEON, LIMEL, LACEZ #### Testing performed at [address] [address] #### [id number], LACCGA #### Testing performed at [facility] #### LANCA #### Testing performed at [address] [address] Testing performed at [facility] URINE SPEC GRAVITY 1.020 Normal 1.010-1.025 [facility] Comment on above: Performed By: #### C REACT, CPK, CMPF, ESR, URIC, ACBC #### Testing performed at [address] [address] #### LTTG, LC3, LC4, KEON, LIMEL, LACEZ #### Testing performed at [address] [place] [address] #### [id number], LACCGA #### Testing performed at [facility] #### LANCA #### Testing performed at [address] [address] Testing performed at [facility] URINE TOTAL PROTEIN Negative Normal NEGATIVE [facility] Comment on above: Performed By: #### C REACT, CPK, CMPF, ESR, URIC, ACBC #### [place] [address] #### LTTG, LC3, LC4, KEON, LIMEL, LACEZ #### Testing performed at [address] [address] #### [id number], LACCGA #### Testing performed at [facility] #### LANCA #### Testing performed at [address] [address] Testing performed at [facility] Urobilinogen Qn (U) 0.2 {Donna'U}/dL Normal 0.2-1.0 [facility] Comment on above: Performed By: #### C REACT, CPK, CMPF, ESR, URIC, ACBC #### Testing performed at [address] [address] #### LTTG, LC3, LC4, KEON, LIMEL, LACEZ #### Testing performed at [address] [address] #### [id number], LACCGA #### Testing performed at [facility] #### LANCA #### Testing performed at [address] [address] Testing performed at [facility] URINE MICROSCOPICon 02-29-20 21 BACTERIA 2+ Abnormal NEGATIVE [facility] Comment on above: Performed By: #### C REACT, CPK, CMPF, ESR, URIC, ACBC #### Testing performed at [address] [place] [address] #### LTTG, LC3, LC4, KEON, LIMEL, LACEZ #### Testing performed at [facility] [address] [place] [address] [place] [address] #### [id number], LACCGA #### Testing performed at [facility] #### LANCA #### Testing performed at [facility] [address] [place] [address] Testing performed at [facility] CASTS NONE Normal [facility] Comment on above: Performed By: #### C REACT, CPK, CMPF, ESR, URIC, ACBC #### Testing performed at [address] [place] [address] #### LTTG, LC3, LC4, KEON, LIMEL, LACEZ #### Testing performed at [facility] [address] [place] [address] #### [id number], LACCGA #### Testing performed at [facility] #### LANCA #### Testing performed at [facility] [address] [place] [place] [address] [place] [address] Testing performed at [facility] CRYSTAL NONE Normal [facility] Comment on above: Performed By: #### C REACT, CPK, CMPF, ESR, URIC, ACBC #### Testing performed at [address] [place] [address] #### LTTG, LC3, LC4, KEON, LIMEL, LACEZ #### Testing performed at [facility] [place] [address] [place] [address] [place] [address] #### [id number], LACCGA #### Testing performed at [facility] #### LANCA #### Testing performed at [facility] [address] [place], [place] [address] [place] [address] [place] [address] Testing performed at [facility] Epithelial cells LM Ql (Urine sed) [address] [facility] Comment on above: Performed By: #### C REACT, CPK, CMPF, ESR, URIC, ACBC #### Testing performed at [address] [place] [address] #### LTTG, LC3, LC4, KEON, LIMEL, LACEZ #### Testing performed at [address] [address] #### [id number], LACCGA #### Testing performed at [facility] #### LANCA #### Testing performed at [address] [place] [address] Testing performed at [facility] Mucus Ql (Urine sed) Negative Normal NEGATIVE [facility] Comment on above: Performed By: #### C REACT, CPK, CMPF, ESR, URIC, ACBC #### Testing performed at [address] [place] [address] #### LTTG, LC3, LC4, KEON, LIMEL, LACEZ #### Testing performed at [address] [address] #### [id number], LACCGA #### Testing performed at [facility] #### LANCA #### Testing performed at [address] [address] Testing performed at [facility] URINE COMMENT REFLEX CULTURE PER ESTABLISHED CRITERIA. Normal [facility] Comment on above: Performed By: #### C REACT, CPK, CMPF, ESR, URIC, ACBC #### Testing performed at [address] [place] [address] #### LTTG, LC3, LC4, KEON, LIMEL, LACEZ #### Testing performed at [address] [place] [address] #### [id number], LACCGA #### Testing performed at [facility] #### LANCA #### Testing performed at [address] [place] [address] Testing performed at [facility] URINE RBC'S 1 TO 5 Normal NEGATIVE [facility] Comment on above: Performed By: #### C REACT, CPK, CMPF, ESR, URIC, ACBC #### Testing performed at [address] [address] #### LTTG, LC3, LC4, KEON, LIMEL, LACEZ #### Testing performed at [address] [address] #### [id number], LACCGA #### Testing performed at [facility] #### LANCA #### Testing performed at [address] [address] Testing performed at [facility] URINE WBC'S '5 TO 10 Normal NEGATIVE [facility] Comment on above: Performed By: #### C REACT, CPK, CMPF, ESR, URIC, ACBC #### Testing performed at [address] [address] #### LTTG, LC3, LC4, KEON, LIMEL, LACEZ #### Testing performed at [address] [address] #### [id number], LACCGA #### Testing performed at [facility] #### LANCA #### Testing performed at [address] [address] Testing performed at [facility] URINE MICROSCOPICOrdered By: Allen Godinez on 02-28-2021 Bacteria LM.HPF (Urine sed) [#/Area] 2+ Abnormal NEGATIVE [facility] Casts LM.LPF (Urine sed) [#/Area] NONE NONE /LPF [facility] Crystals LM Nom (Urine sed) NONE NONE [facility] Epithelial cells LM Ql (Urine sed) 5 TO 10 /HPF [facility] Mucus Ql (Urine sed) Negative NEGATIVE [facility] RBC LM.HPF (Urine sed) [#/Area] 1 TO 5 NEGATIVE /HPF [facility] Urine sediment comments LM Darryl (Urine sed) REFLEX CULTURE PER ESTABLISHED CRITERIA. [facility] WBC LM.HPF (Urine sed) [#/Area] '5 TO 10 NEGATIVE /HPF [facility] VITAMIN D (25-HYDROXY,TOTAL) Ordered By: Allen Godinez on 02-28-2021 25-hydroxyvitamin D [Mass/Vol] 22.5 Low >30 NG/ML Comment on above: DEFICIENT <20 NG/ML INSUFFICIENT 20-<30 NG/ML SUFFICIENT 30-100 NG/ML POTENTIAL TOXICITY >100 NG/ML Interpretation and review of laboratory results Abnormal XR HIPS WITH PELVIS BILATERA Siva 02-28-2021 XR HIPS WITH PELVIS BILATERAL EXAM: XR HIPS WITH PELVIS BILATERAL HISTORY: hip pain COMPARISON: None. TECHNIQUE: Frontal view of the pelvis with 2 additional views of each hip. FINDINGS: There are no acute fractures or dislocations. No radiopaque foreign bodies. There are degenerative changes of the bilateral hips. On the right side, there is some joint space narrowing. On the left side, there is joint space narrowing and bony sclerosis. Small osteophyte is noted arising from the left femoral head. IMPRESSION: Degenerative joint disease of the bilateral hips, left greater than right. Normal [facility] XR HIPS WITH PELVIS BILATERA LOrdered By: Allen Godinez on 02-28-2021 IMPRESSION: Degenera tive joint disease of the bilateral hips, left greater than right. [facility] EXAM: XR HIPS WITH P MARCY BILATERAL HISTORY: hip pain COMPARISON: None. TECHNIQUE: Frontal view of the pelvis with 2 additional views of each hip. FINDINGS: There are no acute fractures or dislocations. No radiopaque foreign bodies. There are degenerative changes of the bilateral hips. On the right side, there is some joint space narrowing. On the left side, there is joint space narrowing and bony sclerosis. Small osteophyte is noted arising from the left femoral head. User, Interfaces - 02/28/2021 4:27 PM EDT EXAM: XR HIPS WITH PELVIS BILATERAL HISTORY: hip pain COMPARISON: None. TECHNIQUE: Frontal view of the pelvis with 2 additional views of each hip. FINDINGS: There are no acute fractures or dislocations. No radiopaque foreign bodies. There are degenerative changes of the bilateral hips. On the right side, there is some joint space narrowing. On the left side, there is joint space narrowing and bony sclerosis. Small osteophyte is noted arising from the left femoral head. 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 [facility] XR KNEE LEFT 4+ VIEWSon 04-2 6-2021 XR KNEE LEFT 4+ VIEWS EXAM: XR KNEE LEFT 4+ VIEWS 02/28/2021 12:35 PM EDT HISTORY: knee pain COMPARISON: None. TECHNIQUE: 5 views of the left knee. FINDINGS: No acute fractures, dislocations, or radiopaque foreign bodies. IMPRESSION: No acute bony abnormalities. Normal [facility] XR KNEE LEFT 4+ VIEWSOrdered By: Allen Godinez on 02-28-2021 IMPRESSION: No acute bony abnormalities. EXAM: XR KNEE LEFT 4 + VIEWS 02/28/2021 12:35 PM EDT HISTORY: knee pain COMPARISON: None. TECHNIQUE: 5 views of the left knee. FINDINGS: No acute fractures, dislocations, or radiopaque foreign bodies. User, Interfaces - 02/28/2021 4:13 PM EDT EXAM: XR KNEE LEFT 4+ VIEWS 02/28/2021 12:35 PM EDT HISTORY: knee pain COMPARISON: None. TECHNIQUE: 5 views of the left knee. FINDINGS: No acute fractures, dislocations, or radiopaque foreign bodies. IMPRESSION IMPRESSION: No acute bony abnormalities. [facility] Vital Signs Date Time Vital Sign Value Performing Clinician Kimmiei helen 04-14-2025 11:17-0400 Body height 170.[address] Anastacio Lloyd MD Work Phone: [facility] 04-14-2025 11:12-0400 Body mass index (BMI) [Ratio] 29.1 kg/m2 Dr. Anastacio Lloyd MD Work Phone: [facility] 04-14-2025 11:12-0400 Body weight 84.[address] Anastacio Lloyd MD Work Phone: [facility] 04-14-2025 11:12-0400 Diastolic blood pressure 78 mm[Hg] Dr. Anastacio Lloyd MD Work Phone: [facility] 04-14-2025 11:12-0400 Systolic blood pressure 142 mm[Hg] Dr. Anastacio Lloyd MD Work Phone: [facility] 02-27-2025 11:35-0400 Body temperature 97 [degF] Dr. Anastacio Lloyd MD Work Phone: [facility] 02-27-2025 11:35-0400 Diastolic blood pressure 79 mm[Hg] Dr. Anastacio Lloyd MD Work Phone: [facility] 02-27-2025 11:35-0400 Heart rate 73 /min Dr. Anastacio Lloyd MD Work Phone: 0(364)148-761124 [place] [address] 02-27-2025 11:35-0400 Respiratory rate 16 /min Dr. Anastacio Lloyd MD Work Phone: 8(903)809-578624 [place] [address] 02-27-2025 11:35-0400 SaO2% (BldA) [Mass fraction] 94 % Dr. Anastacio Lloyd MD Work Phone: 6(847)426-783875 [place] [address] 02-27-2025 11:35-0400 Systolic blood pressure 111 mm[Hg] Dr. Anastacio Lloyd MD Work Phone: 4(741)756-148824 [place] [address] 02-05-2025 12:57-0400 Body mass index (BMI) [Ratio] 28.8 kg/m2 Dr. Anastacio Lloyd MD Work Phone: 3(703)909-519924 [place] [address] 02-05-2025 12:57-0400 Body temperature 97.8 [degF] Dr. Anastacio Lloyd MD Work Phone: 6(960)780-065224 [place] [address] 02-05-2025 12:57-0400 Body weight 83.[address] Anastacio Lloyd MD Work Phone: 8(864)126-227175 [place] [address] 02-05-2025 12:57-0400 Diastolic blood pressure 82 mm[Hg] Dr. Anastacio Lloyd MD Work Phone: 4(002)064-927754 [address] 02-05-2025 12:57-0400 Heart rate 76 /min Dr. Anastacio Lloyd MD Work Phone: 2(539)768-541875 [place] [address] 02-05-2025 12:57-0400 Respiratory rate 18 /min Dr. Anastacio Lloyd MD Work Phone: 1(533)331-579575 [place] [address] 02-05-2025 12:57-0400 SaO2% (BldA) [Mass fraction] 98 % Dr. Anastacio Lloyd MD Work Phone: [facility] 02-05-2025 12:57-0400 Systolic blood pressure 152 mm[Hg] Dr. Anastacio Lloyd MD Work Phone: [facility] 11-18-2024 16:15-0500 Body temperature 97.6 [degF] Dr. Anastacio Lloyd MD Work Phone: [facility] 11-18-2024 16:15-0500 Diastolic blood pressure 97 mm[Hg] Dr. Anastacio Lloyd MD Work Phone: [facility] 11-18-2024 16:15-0500 Heart rate 82 /min Dr. Anastacio Lloyd MD Work Phone: 1(564)102-712375 [place] [address] 11-18-2024 16:15-0500 Respiratory rate 16 /min Dr. Anastacio Lloyd MD Work Phone: 5(186)805-627975 [place] [address] 11-18-2024 16:15-0500 SaO2% (BldA) [Mass fraction] 98 % Dr. Anastacio Lloyd MD Work Phone: [facility] 11-18-2024 16:15-0500 Systolic blood pressure 147 mm[Hg] Dr. Anastacio Lloyd MD Work Phone: [facility] 11-18-2024 12:00-0500 Inhaled oxygen flow rate 4 L/min Dr. Anastacio Lloyd MD Work Phone: [facility] 11-18-2024 06:33-0500 Body height 170.[address] Anastacio Lloyd MD Work Phone: [facility] 11-18-2024 06:33-0500 Body mass index (BMI) [Ratio] 28.3 kg/m2 Dr. Anastacio Lloyd MD Work Phone: [facility] 11-18-2024 06:33-0500 Body weight [address] Anastacio Lloyd MD Work Phone: [facility] 02-18-2024 11:06-0400 Body height 170.[address] Anastacio Lloyd Work Phone: [facility] 02-18-2024 11:06-0400 Body mass index (BMI) [Ratio] 26.9 kg/m2 Dr. Anastacio Lloyd Work Phone: [facility] 02-18-2024 11:06-0400 Body weight 78.[address] Anastacio Lloyd Work Phone: 0(798)493-796175 [place] [address] 02-18-2024 11:06-0400 Diastolic blood pressure 72 mm[Hg] Dr. Anastacio Lloyd Work Phone: 6(555)934-865075 [place] [address] 02-18-2024 11:06-0400 Systolic blood pressure 130 mm[Hg] Dr. Anastacio Lloyd Work Phone: 7(461)073-605324 [place] [address] 01-01-2024 08:48-0500 Body height 170.[address] Anastacio Lloyd Work Phone: 7(752)514-752024 [place] [address] 01-01-2024 08:44-0500 Body mass index (BMI) [Ratio] 26.4 kg/m2 Dr. Anastacio Lloyd Work Phone: 7(974)702-871254 [address] 01-01-2024 08:44-0500 Body weight 76.[address] Anastacio Lloyd Work Phone: 9(627)005-508475 [place] [address] 01-01-2024 08:44-0500 Diastolic blood pressure 70 mm[Hg] Dr. Anastacio Lloyd Work Phone: 3(727)103-356975 [place] [address] 01-01-2024 08:44-0500 Systolic blood pressure 118 mm[Hg] Dr. Anastacio Lloyd Work Phone: 6(544)889-288475 [place] [address] 04-03-2023 10:33-0400 Body height 170.[address] Anastacio Lloyd Work Phone: 1(937)820-252675 [place] [address] 04-03-2023 10:28-0400 Body mass index (BMI) [Ratio] 27.1 kg/m2 Dr. Anastacio Lloyd Work Phone: 8(504)295-741175 [place] [address] 04-03-2023 10:28-0400 Body weight 78.[address] Anastacio Lloyd Work Phone: [facility] 04-03-2023 10:28-0400 Diastolic blood pressure 86 mm[Hg] Dr. Anastacio Lloyd Work Phone: [facility] 04-03-2023 10:28-0400 Systolic blood pressure 130 mm[Hg] Dr. Anastacio Lloyd Work Phone: [facility] 02-13-2023 15:12-0400 Body mass index (BMI) [Ratio] 26.6 kg/m2 Dr. Anastacio Lloyd Work Phone: [facility] 02-13-2023 15:12-0400 Body weight 77.[address] Anastacio Lloyd Work Phone: [facility] 02-13-2023 15:12-0400 Diastolic blood pressure 70 mm[Hg] Dr. Anastacio Lloyd Work Phone: [facility] 02-13-2023 15:12-0400 Systolic blood pressure 120 mm[Hg] Dr. Anastacio Lloyd Work Phone: [facility] 12-06-2022 14:50-0500 Body height 170.[address] Anastacio Lloyd Work Phone: [facility] 12-06-2022 14:50-0500 Body mass index (BMI) [Ratio] 26.6 kg/m2 Dr. Anastacio Lloyd Work Phone: [facility] 12-06-2022 14:50-0500 Body weight 77.[address] Anastacio Lloyd Work Phone: [facility] 04-12-2022 11:24-0400 Body temperature 99 [degF] Dr. Anastacio Lloyd Work Phone: [facility] Work Phone: 04-12-2022 11:24-0400 Diastolic blood pressure 86 mm[Hg] Dr. Anastacio Lloyd Work Phone: [facility] Work Phone: 04-12-2022 11:24-0400 Heart rate 93 /min Dr. Anastacio Lloyd Work Phone: [facility] Work Phone: 04-12-2022 11:24-0400 Respiratory rate 16 /min Dr. Anastacio Lloyd Work Phone: [facility] Work Phone: 04-12-2022 11:24-0400 SaO2% (BldA) [Mass fraction] 94 % Dr. Anastacio Lloyd Work Phone: [facility] Work Phone: 04-12-2022 11:24-0400 Systolic blood pressure 124 mm[Hg] Dr. Anastacio Lloyd Work Phone: [facility] Work Phone: 04-11-2022 13:32-0400 Body height 170.[address] Anastacio Lloyd Work Phone: [facility] Work Phone: 04-11-2022 13:32-0400 Body mass index (BMI) [Ratio] 27.9 kg/m2 Dr. Anastacio Lloyd Work Phone: [facility] Work Phone: 04-11-2022 13:32-0400 Body weight [address] Anastacio Lloyd Work Phone: [facility] Work Phone: 04-11-2022 13:32-0400 Inhaled oxygen flow rate 2 L/min Dr. Anastacio Lloyd Work Phone: [facility] Work Phone: 04-06-2022 09:25-0400 Body mass index (BMI) [Ratio] 27.8 kg/m2 Dr. Anastacio Lloyd Work Phone: [facility] Work Phone: 04-06-2022 09:25-0400 Body temperature 97.6 [degF] Dr. Anastacio Lloyd Work Phone: [facility] Work Phone: 04-06-2022 09:25-0400 Body weight 81.[address] Anastacio Lloyd Work Phone: [facility] Work Phone: 04-06-2022 09:25-0400 Diastolic blood pressure 77 mm[Hg] Dr. Anastacio Lloyd Work Phone: [facility] Work Phone: 04-06-2022 09:25-0400 Heart rate 80 /min Dr. Anastacio Lloyd Work Phone: [facility] Work Phone: 04-06-2022 09:25-0400 Respiratory rate 18 /min Dr. Anastacio Lloyd Work Phone: [facility] Work Phone: 04-06-2022 09:25-0400 SaO2% (BldA) [Mass fraction] 97 % Dr. Anastacio Lloyd Work Phone: [facility] Work Phone: 04-06-2022 09:25-0400 Systolic blood pressure 131 mm[Hg] Dr. Anastacio Lloyd Work Phone: [facility] Work Phone: 04-06-2022 09:25-0400 Body mass index (BMI) [Ratio] 27.8 kg/m2 Dr. Anastacio Lloyd Work Phone: [facility] Work Phone: 04-06-2022 09:25-0400 Body temperature 97.6 [degF] Dr. Anastacio Lloyd Work Phone: [facility] Work Phone: 04-06-2022 09:25-0400 Body weight 81.[address] Anastacio Lloyd Work Phone: [facility] Work Phone: 04-06-2022 09:25-0400 Diastolic blood pressure 77 mm[Hg] Dr. Anastacio Lloyd Work Phone: [facility] Work Phone: 04-06-2022 09:25-0400 Heart rate 80 /min Dr. Anastacio Lloyd Work Phone: [facility] Work Phone: 04-06-2022 09:25-0400 Respiratory rate 18 /min Dr. Anastacio Lloyd Work Phone: [facility] Work Phone: 04-06-2022 09:25-0400 SaO2% (BldA) [Mass fraction] 97 % Dr. Anastacio Lloyd Work Phone: [facility] Work Phone: 04-06-2022 09:25-0400 Systolic blood pressure 131 mm[Hg] Dr. Anastacio Lloyd Work Phone: [facility] Work Phone: 12-29-2021 07:56-0500 Body temperature 97.7 [degF] Dr. Anastacio Lloyd Work Phone: [facility] Work Phone: 12-29-2021 07:56-0500 Diastolic blood pressure 76 mm[Hg] Dr. Anastacio Lloyd Work Phone: [facility] Work Phone: 12-29-2021 07:56-0500 Heart rate 53 /min Dr. Anastacio Lloyd Work Phone: [facility] Work Phone: 12-29-2021 07:56-0500 Respiratory rate 16 /min Dr. Anastacio Lloyd Work Phone: [facility] Work Phone: 12-29-2021 07:56-0500 SaO2% (BldA) [Mass fraction] 95 % Dr. Anastacio Lloyd Work Phone: [facility] Work Phone: 12-29-2021 07:56-0500 Systolic blood pressure 128 mm[Hg] Dr. Anastacio Lloyd Work Phone: [facility] Work Phone: 12-19-2021 12:40-0500 Body height 171.[address] Anastacio Lloyd Work Phone: [facility] Work Phone: 12-19-2021 12:40-0500 Body mass index (BMI) [Ratio] 26.7 kg/m2 Dr. Anastacio Lloyd Work Phone: [facility] Work Phone: 12-19-2021 12:40-0500 Body temperature 97.3 [degF] Dr. Anastacio Lloyd Work Phone: [facility] Work Phone: 12-19-2021 12:40-0500 Body weight 78.[address] Anastacio Lloyd Work Phone: [facility] Work Phone: 12-19-2021 12:40-0500 Diastolic blood pressure 75 mm[Hg] Dr. Anastacio Lloyd Work Phone: [facility] Work Phone: 12-19-2021 12:40-0500 Heart rate 74 /min Dr. Anastacio Lloyd Work Phone: [facility] Work Phone: 12-19-2021 12:40-0500 Respiratory rate 18 /min Dr. Anastacio Lloyd Work Phone: [facility] Work Phone: 12-19-2021 12:40-0500 SaO2% (BldA) [Mass fraction] 100 % Dr. Anastacio Lloyd Work Phone: [facility] Work Phone: 12-19-2021 12:40-0500 Systolic blood pressure 128 mm[Hg] Dr. Anastacio Lloyd Work Phone: [facility] Work Phone: 12-02-2021 09:41-0500 Body temperature 96.7 [degF] Dr. Anastacio Lloyd Work Phone: [facility] Work Phone: 12-02-2021 09:41-0500 Diastolic blood pressure 85 mm[Hg] Dr. Anastacio Lloyd Work Phone: [facility] Work Phone: 12-02-2021 09:41-0500 Heart rate 58 /min Dr. Anastacio Lloyd Work Phone: [facility] Work Phone: 12-02-2021 09:41-0500 Respiratory rate 16 /min Dr. Anastacio Lloyd Work Phone: [facility] Work Phone: 12-02-2021 09:41-0500 SaO2% (BldA) [Mass fraction] 99 % Dr. Anastacio Lloyd Work Phone: [facility] Work Phone: 12-02-2021 09:41-0500 Systolic blood pressure 150 mm[Hg] Dr. Anastacio Lloyd Work Phone: [facility] Work Phone: 12-02-2021 06:37-0500 Body mass index (BMI) [Ratio] 26.2 kg/m2 Dr. Anastacio Lloyd Work Phone: [facility] Work Phone: 12-02-2021 06:37-0500 Body weight 76.[address] Anastacio Lloyd Work Phone: [facility] Work Phone: 11-11-2021 07:38-0500 Body mass index (BMI) [Ratio] 27.3 kg/m2 Dr. Anastacio Lloyd Work Phone: [facility] Work Phone: 11-11-2021 07:38-0500 Body temperature 97.3 [degF] Dr. Anastacio Lloyd Work Phone: [facility] Work Phone: 11-11-2021 07:38-0500 Body weight 79.[address] Anastacio Lloyd Work Phone: [facility] Work Phone: 11-11-2021 07:38-0500 Diastolic blood pressure 88 mm[Hg] Dr. Anastacio Lloyd Work Phone: [facility] Work Phone: 11-11-2021 07:38-0500 Heart rate 97 /min Dr. Anastacio Lloyd Work Phone: [facility] [facility] Work Phone: 11-11-2021 07:38-0500 Respiratory rate 16 /min Dr. Anastacio Lloyd Work Phone: [facility] Work Phone: 11-11-2021 07:38-0500 SaO2% (BldA) [Mass fraction] 96 % Dr. Anastacio Lloyd Work Phone: [facility] Work Phone: 11-11-2021 07:38-0500 Systolic blood pressure 154 mm[Hg] Dr. Anastacio Lloyd Work Phone: [facility] Work Phone: 03-30-2021 15:12-0400 Body height 171.5 cm Allen Godinez Jr., DO Work Phone: 03-30-2021 15:12-0400 Body mass index (BMI) [Ratio] 24.69 kg/m2 Allen Godinez Jr., DO Work Phone: 03-30-2021 15:12-0400 Body temperature 98.2 [degF] Allen Godinez Jr., DO Work Phone: 03-30-2021 15:12-0400 Body weight 72.58 kg Allen Gomesjulia , DO Work Phone: 03-30-2021 15:12-0400 Diastolic blood pressure 70 mm[Hg] Allen Godinez , DO Work Phone: 03-30-2021 15:12-0400 Heart rate 61 /min Allen Godinez Sanjay, DO Work Phone: 03-30-2021 15:12-0400 SaO2% (BldA) [Mass fraction] 97 % Allen Godinez Sanjay, DO Work Phone: 03-30-2021 15:12-0400 Systolic blood pressure 124 mm[Hg] Allen Godinez Jr., DO Work Phone: 02-28-2021 11:00-0400 Body height 171.5 cm Allen Godinez Sanjay, DO Work Phone: 02-28-2021 11:00-0400 Body mass index (BMI) [Ratio] 24.69 kg/m2 Allen Godinez Sanjay, DO Work Phone: 02-28-2021 11:00-0400 Body temperature 97.2 [degF] Allen Godinez Jr., DO Work Phone: 02-28-2021 11:00-0400 Body weight 72.58 kg Allen Godinez Jr., DO Work Phone: 02-28-2021 11:00-0400 Diastolic blood pressure 80 mm[Hg] Allen Godinez Jr., DO Work Phone: 02-28-2021 11:00-0400 Heart rate 64 /min Allen Godinez Jr., DO Work Phone: 02-28-2021 11:00-0400 SaO2% (BldA) [Mass fraction] 98 % Allen Godinez Jr., DO Work Phone: 02-28-2021 11:00-0400 Systolic blood pressure 132 mm[Hg] Allen Godinez Jr., DO Work Phone: Encounters Encounter Date Encounter Type Care Provider Facility Start: 05-27-2025 ambulatory Maribel [place] Facility :[facility] Start: 04-14-2025 End: 04-14-2025 Patient encounter procedure Maribel Delgado [employer] -[facility] Work Phone: Start: 04-14-2025 End: 04-14-2025 Patient encounter status aMribel Delgado [employer] [facility] Start: 04-14-2025 End: 04-14-[address] Anastacio Lloyd MD Work Phone: [facility] Work Phone: Start: 02-27-2025 ambulatory Anastacio Lloyd Facilit y:[facility] Start: 02-27-2025 Non-patient / Non-visit Dr. Duane GATES -[facility] Start: 02-27-2025 End: 02-27-2025 Admission to same day surgery center Dr. Vernon Canas MD -Endoscopy Work Phone: Start: 02-27-2025 End: 02-27-2025 ambulatory Anastacio Lloyd Facility:[facility] Start: 02-05-2025 End: 02-05-[address] Vernon Canas MD -[facility] Work Phone: Start: 02-05-2025 End: 02-05-2025 ambulatory Anastacio Lloyd Facility:[facility] Start: 01-14-2025 End: 01-14-[address] Anastacio Lloyd MD Work Phone: [facility] Work Phone: Start: 01-14-2025 End: 01-14-[address] Anastacio Lloyd MD -Laboratory, [facility] Start: 01-14-2025 End: 01-14-2025 ambulatory Anastacio Lloyd Facility:[facility] Start: 12-29-2024 End: 12-29-[address] Yadiel Quinn DO -[facility] Work Phone: Start: 12-29-2024 End: 12-29-2024 ambulatory Anastacio Lloyd Facility:[facility] Start: 12-18-2024 End: 12-18-2024 ambulatory Anastacio Lloyd Facility:[facility] Start: 12-18-2024 End: 12-18-[address] Yadiel Quinn DO -Physical Therapy Work Phone: Start: 12-11-2024 Encounter for other preprocedural examination [facility] Start: 12-01-2024 Encounter for other preprocedural examination [facility] Start: 12-01-2024 End: 12-01-[address] Yadiel Quinn DO -[facility] Work Phone: Start: 12-01-2024 End: 12-01-2024 ambulatory Anastacio Lloyd Facility:[facility] Start: 11-18-2024 ambulatory Anastacio Lloyd Facilit y:[facility] Start: 11-18-2024 Non-patient / Non-visit Dr. Nicky Quinn DO -[facility] Start: 11-18-2024 End: 11-18-2024 Admission to same day surgery center Dr. Yadiel Quinn DO -[facility] Start: 11-18-2024 End: 11-18-2024 ambulatory Anastacio Lloyd Facility:[facility] Start: 11-10-2024 End: 11-10-[address] [facility] Work [facility]: Start: 11-10-2024 End: 11-10-2024 ambulatory Anastacio Lloyd Facility:[facility] Start: 09-15-2024 End: 09-15-2024 ambulatory Anastacio Lloyd Facility:[facility] Start: 09-15-2024 End: 09-15-2024 ambulatory Anastacio Lloyd Facility:[facility] Start: 09-05-2024 End: 09-05-2024 ambulatory Chi Black Facility:[facility] Start: 09-01-2024 End: 09-01-2024 ambulatory Anastacio Lloyd Facility:[facility] Start: 08-25-2024 End: 08-25-2024 ambulatory Anastacio Lloyd Facility:[facility] Start: 08-13-2024 End: 08-13-2024 ambulatory Anastacio Lloyd Facility:[facility] Start: 06-06-2024 End: 06-06-2024 ambulatory Anastacio Lloyd Facility:[facility] Start: 06-04-2024 End: 06-04-2024 ambulatory Anastacio Lloyd Facility:[facility] Start: 05-27-2024 End: 05-27-2024 ambulatory [facility] Iliana Lloyd Facility:[facility] Start: 05-26-2024 End: 05-26-2024 ambulatory Maribel [place] Facility:[facility] Start: 02-18-2024 End: 02-18-[address] Anastacio Lloyd Work Phone: [facility] Work Phone: Start: 02-18-2024 End: 02-18-[address] Anastacio Lloyd Work Phone: [facility]-Laboratory, Spec[facility] Work Phone: Start: 02-18-2024 End: 02-18-[address] Anastacio Lloyd Work Phone: [facility] Work Phone: Start: 01-01-2024 End: 01-01-[address] Anastacio Lloyd Work Phone: [facility] Work Phone: Start: 01-01-2024 End: 01-01-[address] Anastacio Lloyd Work Phone: [facility] Work Phone: Start: 01-01-2024 End: 01-01-[address] Anastacio Lloyd Work Phone: [facility] Work Phone: Start: 11-20-2023 End: 11-20-2023 ambulatory [facility] Work Phone: Start: 11-20-2023 End: 11-20-2023 Patient encounter procedure [facility] Start: 06-21-2023 End: 06-21-[address] Anastacio Lloyd Work Phone: [facility] Work Phone: Start: 06-21-2023 End: 06-21-[address] Anastacio Lloyd Work Phone: [facility] Start: 06-04-2023 End: 06-04-[address] Anastacio Lloyd Work Phone: [facility] Work Phone: Start: 06-04-2023 End: 06-04-[address] Anastacio Lloyd Work Phone: [facility]-Cat Scan, [facility] Work Phone: Start: 05-24-2023 End: 05-24-[address] Anastacio Lloyd Work Phone: [facility]-Outpatient Breast Imaging Work Phone: Start: 05-23-2023 End: 05-23-[address] Anastacio Lloyd Work Phone: [facility] Start: 04-03-2023 End: 04-03-[address] Anastacio Lloyd Work Phone: [facility] Work Phone: Start: 02-13-2023 End: 02-13-[address] Anastacio Lloyd Work Phone: [facility] Work Phone: Start: 01-12-2023 End: 01-12-[address] Anastacio Lloyd Work Phone: [facility] Work Phone: Start: 01-12-2023 End: 01-12-[address] Anastacio Lloyd Work Phone: [facility]-Physical Therapy Start: 12-06-2022 End: 12-06-[address] Anastacio Lloyd Work Phone: [facility] Start: 11-24-2022 End: 11-24-2022 ambulatory [facility] Work Phone: Start: 11-24-2022 End: 11-24-2022 Patient encounter procedure [facility] Start: 08-08-2022 End: 08-08-[address] Anastacio Lloyd Work Phone: [facility] Work Phone: Start: 08-08-2022 End: 08-08-[address] Anastacio Lloyd [facility] Start: 07-24-2022 End: 07-24-[address] Anastacio Lloyd Work Phone: [facility] Start: 05-23-2022 End: 05-23-[address] Anastacio Lloyd Work Phone: [facility]-Outpatient Breast Imaging Start: 04-25-2022 End: 04-25-[address] Anastacio Lloyd Work Phone: [facility] Start: 04-12-2022 Non-patient / Non-visit Dr. Nicky Lloyd Work Phone: [facility] Start: 04-11-2022 End: 04-12-2022 Evaluation and management of inpatient Dr. Anastacio Lloyd Work Phone: [facility]-Medical Surgical 3 Start: 04-11-2022 Non-patient / Non-visit Dr. Nicky Lloyd Work Phone: [facility] Start: 04-06-2022 End: 04-06-[address] Anastacio Lloyd Work Phone: [facility] Start: 04-06-2022 Non-patient / Non-visit Dr. Nicky Lloyd Work Phone: [facility] Start: 01-25-2022 End: 01-25-[address] Anastacio Lloyd Work Phone: [facility] Start: 01-04-2022 End: 01-04-[address] Anastacio Lloyd Work Phone: [facility] Start: 12-29-2021 End: 12-29-2021 Admission to same day surgery center Dr. Anastacio Lloyd Work Phone: [facility]-Endoscopy Start: 12-27-2021 End: 12-27-[address] Anastacio Lloyd Work Phone: [facility] Start: 12-19-2021 End: 12-19-[address] Anastacio Lloyd Work Phone: [facility] Start: 12-19-2021 End: 12-19-[address] Anastacio Lloyd Work Phone: [facility] Start: 12-02-2021 Non-patient / Non-visit Dr. Nicky Lloyd Work Phone: [facility] Start: 12-02-2021 End: 12-02-2021 Admission to same day surgery center Dr. Anastacio Lloyd Work Phone: [facility]-Endoscopy Start: 11-11-2021 Non-patient / Non-visit Dr. Nicky Lloyd Work Phone: [facility] Start: 11-11-2021 End: 11-11-[address] Anastacio Lloyd Work Phone[facility] Start: 11-11-2021 End: 11-11-[address] Anastacio Lloyd Work Phone: [facility] Start: 10-25-[address] Anastacio Lloyd Work Phone[facility] Start: 10-20-[address] Anastacio Lloyd [facility] Phone[facility] Start: 10-17-[address] Anastacio Lloyd Work Phone: [facility]-Laboratory Start: 03-30-2021 End: 03-30-2021 Office outpatient visit 25 minutes Allen Godinez DO Work Phone: [facility] Comment on above: Vitamin D deficiency (Primary Dx); Primary osteoarthritis of both hands; Primary osteoarthritis of both feet; Primary osteoarthritis of both hips; Acute cystitis with hematuria; AKASH positive; care home current use of non-steroidal anti-inflammatories (NSAID); Elevated BUN Start: 02-28-2021 End: 02-28-2021 Subsequent hospital visit by physician Allen Godinez DO Work Phone: [facility] Comment on above: Canceled (Cancel Cecelia son Not Listed - Please provide detailed information) Arrived Start: 02-28-2021 End: 02-28-2021 Office outpatient new 45 minutes Allen Krause Gretchen MEDINA Work Phone: [facility] Comment on above: Cervicalgia (Primary Dx); Disorder of bone and cartilage; Primary osteoarthritis of both hands; Bilateral hip pain; Chronic pain of left knee; Primary osteoarthritis of both feet; Fatigue, unspecified type; AKASH positive; care home current use of non-steroidal anti-inflammatories (NSAID); Arterial bruit Procedures Date Procedure Procedure Detail Performing Clinician Start: 01-14-2025 Urnls dip stick/tabl et reagent auto microscopy Dr. Anastacio Lloyd MD Work Phone: Start: 01-14-[address] Anastacio Lloyd MD Work Phone: Start: 01-14-2025 Vitamin D, 25-hydrox y measurement Dr. Anastacio Lloyd MD Work Phone: Comment on above: Vitamin D StatusDefi ciency: <20 ng/mL (50nmol/L)Insufficiency: 20-30 ng/mL (50-75 nmol/L)Sufficiency: 30-100 ng/mL (75-250 nmol/L)Toxicity: >100 ng/mL (>250 nmol/L) Start: 12-29-2024 Plain x-ray of pelvi s and lower extremity Dr. Anastacio Lloyd MD Work Phone: Start: 11-18-2024 Plain X-ray of hip Dr. Anastacio Lloyd MD Work Phone: Start: 11-10-2024 Methicillin resistan t Staphylococcus aureus screening test Dr. Anastacio Lloyd MD Work Phone: Start: 11-10-2024 MRI of lower extremity Dr. Anastacio Lloyd MD Work Phone: Start: 02-18-[address] Anastacio Lloyd Work Phone: Start: 01-01-[address] Anastacio Lloyd Work Phone: Start: 06-04-[address] Anastacio ribera Work Phone: Start: 05-24-2023 Screening mammography Citlali Lloyd Work Phone: Start: 12-06-2022 X-ray of lumbar spin e, two or three views Dr. Anastacio Lloyd Work Phone: Start: 11-24-2022 Plain x-ray of pelvi s and lower extremity Start: 05-23-2022 Dual energy X-ray absorptiometry Dr. Anastacio Lloyd Work Phone: Start: 05-23-2022 Screening mammography Citlali Lloyd Work Phone: Start: 04-11-2022 Gloria fundoplication Citlali Lloyd Work Phone: Start: 12-27-2021 Inj/Asp Willy Jt Should/Hip/Knee Dr. Anastacio Lloyd Work Phone: Start: 12-19-2021 Plain x-ray of pelvi s and lower extremity Dr. Anastacio Lloyd Work Phone: Start: 12-19-2021 X-ray of lumbar spin e, two or three views Dr. Anastacio Lloyd Work Phone: Start: 12-01-2021 SARS-CoV-2 Antigen (Rapid) Dr. Anastacio Lloyd Work Phone: Start: 11-11-[address] Anastacio ribera Work Phone: Start: 10-25-[address] Anastacio Lloyd Work Phone: Start: 02-28-2021 Culture bacterial quanttative colony count urine Allen Godinez DO Work Phone: Start: 02-28-2021 End: 02-28-2021 Radiologic exam knee complete 4/more views Allen Godinez DO Work Phone: Plan of Treatment Date Care Activity Detail Author Start: 02-27-2025 Egd transoral biopsy single/multiple EGD BIOPSY SINGLE/MULTIPLE [facility] Start: 02-27-2025 Patient discharge [facility] Start: 11-18-2024 Anesthesia open total hip arthroplasty ANESTH HIP ARTHROPLASTY [facility] Start: 11-18-2024 Arthrp acetblr/prox fem prostc agrft/algrft TOTAL HIP ARTHROPLASTY [facility] Start: 11-18-2024 Application of ice collar, cap or bag [facility] Start: 11-18-2024 Exercises [facility] Start: 11-18-2024 Incentive spirometry [facility] Start: 11-18-2024 Neurovascular assessment [facility] Start: 11-18-2024 Patient discharge [facility] Start: 11-18-2024 Patient education [facility] Start: 11-18-2024 Provision of activity privileges [facility] Start: 11-18-2024 Recommendation to continue with treatment [facility] Start: 11-18-2024 Referral to service [facility] Start: 11-18-2024 Vital signs measurements [facility] Start: 11-18-2024 Wound care [facility] Start: 11-18-2024 [facility] Start: 12-06-2022 Patient referral [facility] Work Phone: Start: 04-12-2022 [facility] Work Phone: Start: 04-12-2022 End: 04-12-2022 Provision of activity privileges [facility] Work Phone: Start: 04-12-2022 Patient discharge [facility] Work Phone: Start: 04-11-2022 [facility] Work Phone: Start: 04-11-2022 Anes intraperitoneal upper abdomen w/laps nos ANESTH SURG UPPER ABDOMEN [facility] Work Phone: Start: 04-11-2022 Laps rpr paraesphgl hrna incl fundplsty w/o mesh LAP PARAESOPHAG JANIS REPAIR [facility] Work Phone: Start: 04-11-2022 End: 04-11-2022 Provision of activity privileges [facility] Work Phone: Start: 04-11-2022 Following clinical pathway protocol [facility] Work Phone: Start: 04-11-2022 Ambulation without limitation [facility] Work Phone: Start: 04-11-2022 Application of intermittent pneumatic compression device [facility] Work Phone: Start: 04-11-2022 Catheterization of vein [facility] Work Phone: Start: 04-11-2022 Incentive spirometry [facility] Work Phone: Start: 04-11-2022 Nil by mouth [facility] Work Phone: Start: 04-11-2022 Notification of physician [facility] Work Phone: Start: 04-11-2022 Vital signs measurements [facility] Work Phone: Start: 04-11-2022 [facility] Work Phone: Start: 04-11-2022 Admission procedure [facility] Work Phone: Start: 12-29-2021 Esophageal motility study w/interp&rpt ESOPHAGUS MOTILITY STUDY [facility] Work Phone: Start: 12-02-2021 Colonoscopy flx dx w/collj spec when pfrmd DIAGNOSTIC COLONOSCOPY [facility] Work Phone: Start: 12-02-2021 Egd transoral biopsy single/multiple EGD BIOPSY SINGLE/MULTIPLE [facility] Work Phone: Start: 07-06-2021 Influenza vaccination INFLUENZA VACCINE (Season Ended) Start: 03-30-2021 End: 03-30-2021 Patient encounter procedure 03/30/2021 Office Visit Rheumatology Gretchen Ann, Allen Krause, DO [address] [place] [address] [facility] Start: 02-28-2021 End: 02-28-2022 Radiography of hip Comment on above: Expected: 02/28/2021, Expires: 04/26/202 2 1 Occurrences starti ng 02/28/2021 until 02/28/2021 Start: 2020 Pneumococcal vaccination PNEUMOCOCCAL VACCINE SERIES (1 of 2 - PCV13) Start: 2005 Colonoscopy COLORECTAL CANCER SCREENING DISCUSSION Start: 2005 Zoster vaccine hzv live for subcutaneous use ZOSTER (SHINGLES) VACCINE (1 of 2) Start: 1995 Fasting lipid profile LIPID SCREENING [facility] Start: 1995 Screening mammography MAMMOGRAM SCREENING DISCUSSION Start: 1976 Screening for malignant neoplasm of cervix CERVICAL CANCER SCREENING DISCUSSION Start: 1974 Third diphtheria, tetanus and acellular pertussis (DTaP) vaccination TDAP (ADULT) Start: 1973 Tetanus vaccination TETANUS Start: 1971 COVID-19 VACCINE (1) COVID-19 VACCINE (1) [facility] Start: 1967 COVID-19 VACCINE (1) COVID-19 VACCINE (1) [facility] Start: 1955 Hepatitis C antibody, confirmatory test HEPATITIS C VIRUS SCREENING Start: 1955 Screening for osteoporosis DEXA SCAN DISCUSSION AKASH MULTIPLEX SCRN W ITH REFLEX AKASH MULTIPLEX SCRN WITH REFLEX Lab Routine Cervicalgia Disorder of bone and cartilage Primary osteoarthritis of both hands Bilateral hip pain Chronic pain of left knee Primary osteoarthritis of both feet Fatigue, unspecified type AKASH positive care home current use of non-steroidal anti-inflammatories (NSAID) Arterial bruit 02/28/2021 12:22 PM EDT ANCA INIT SCRN (ANCA , PR3AB, MPO) ANCA INIT SCRN (ANCA, PR3AB, MPO) Lab Routine Cervicalgia Disorder of bone and cartilage Primary osteoarthritis of both hands Bilateral hip pain Chronic pain of left knee Primary osteoarthritis of both feet Fatigue, unspecified type AKASH positive care home current use of non-steroidal anti-inflammatories (NSAID) Arterial bruit 02/28/2021 12:22 PM EDT Angiotensin converti ng enzyme [Enzymatic activity/volume] in Serum or Plasma ANGIOTENSIN CONVERTING ENZYME Lab Routine Cervicalgia Disorder of bone and cartilage Primary osteoarthritis of both hands Bilateral hip pain Chronic pain of left knee Primary osteoarthritis of both feet Fatigue, unspecified type AKASH positive care home current use of non-steroidal anti-inflammatories (NSAID) Arterial bruit 02/28/2021 12:22 PM [facility] Bacteria identified in Urine by Culture URINE CULTURE Microbiology Routine 02/28/2021 2:37 PM [facility] C3 COMPLEMENT C3 COMPLEMENT La b Routine Cervicalgia Disorder of bone and cartilage Primary osteoarthritis of both hands Bilateral hip pain Chronic pain of left knee Primary osteoarthritis of both feet Fatigue, unspecified type AKASH positive care home current use of non-steroidal anti-inflammatories (NSAID) Arterial bruit 02/28/2021 12:22 PM [facility] C4 COMPLEMENT C4 COMPLEMENT La b Routine Cervicalgia Disorder of bone and cartilage Primary osteoarthritis of both hands Bilateral hip pain Chronic pain of left knee Primary osteoarthritis of both feet Fatigue, unspecified type AKASH positive [employer] current use of non-steroidal anti-inflammatories (NSAID) Arterial bruit 02/28/2021 12:22 PM [facility] CYCLIC CITRULLINATE PEPTIDE AB CYCLIC CITRULLINATE PEPTIDE AB Lab Routine Cervicalgia Disorder of bone and cartilage Primary osteoarthritis of both hands Bilateral hip pain Chronic pain of left knee Primary osteoarthritis of both feet Fatigue, unspecified type AKASH positive [employer] current use of non-steroidal anti-inflammatories (NSAID) Arterial bruit 02/28/2021 12:22 PM [facility] Electrocardiographic procedure [facility] Work Phone: Electrocardiographic procedure [facility] ISATU AND PE, SERUM ISATU AND PE, SE RUM Lab Routine Cervicalgia Disorder of bone and cartilage Primary osteoarthritis of both hands Bilateral hip pain Chronic pain of left knee Primary osteoarthritis of both feet Fatigue, unspecified type AKASH positive care home current use of non-steroidal anti-inflammatories (NSAID) Arterial bruit 02/28/2021 12:22 PM [facility] Patient referral [facility] Work Phone: T-TRANSGLUTAMINASE IGA AB T-CANAS SGLUTAMINASE IGA AB Lab Routine Cervicalgia Disorder of bone and cartilage Primary osteoarthritis of both hands Bilateral hip pain Chronic pain of left knee Primary osteoarthritis of both feet Fatigue, unspecified type AKASH positive care home current use of non-steroidal anti-inflammatories (NSAID) Arterial bruit 02/28/2021 12:22 PM EDT VITAMIN D, (1,25 DIHYDROXY) NONA MIN D, (1,25 DIHYDROXY) Lab Routine Cervicalgia Disorder of bone and cartilage Primary osteoarthritis of both hands Bilateral hip pain Chronic pain of left knee Primary osteoarthritis of both feet Fatigue, unspecified type AKASH positive care home current use of non-steroidal anti-inflammatories (NSAID) Arterial bruit 02/28/2021 12:22 PM EDT [facility] Payers Date Payer Category Payer Medicare [id number] 2024 Self-pay [id number] 2024 Unknown [id number] 2021 Medicare MEDICARE MEDICAR E A AND B [id number] 2021-Present [place], [place] [id number] 2020 Unknown GENERIC PAYOR [place] DICARE SUPPLEMENT [id number] 2020-Present [id number]. [id number] Unknown [id number] Unknown [id number] Unknown [id number] .0.1.488043.3.579.2.462 Unknown [id number] 12.21.830.1.350937.3.579.2.462 Unknown [id number] 12.21.830.1.409241.3.579.2.462 Unknown [id number] 2.16.840.1.498156.3.579.2.462 Unknown [id number] 2.16.840.1.140204.3.579.2.462 Unknown [id number] 2.16.840.1.951383.3.579.2.462 Unknown [id number] 2.16.840.1.723457.3.579.2.462 Unknown [id number] 2.16.840.1.259497.3.579.2.462 Unknown [id number] 2.16.840.1.199782.3.579.2.462 Unknown [id number] 2.16840.1.274184.3.579.2.462 Unknown [id number] 2.840.1.667443.3.579.2.462 Unknown [id number] 2.840.1.904898.3.579.2.462 Unknown [id number] 2..840.1.114720.3.579.2.462 Unknown [id number] 2.16.840.1.171715.3.579.2.462 Unknown [id number] 2.16.840.1.932645.3.579.2.462 Unknown [id number] 2.16.840.1.318279.3.579.2.462 Unknown [id number] 2.16.840.1.617472.3.579.2.462 Unknown [id number] 2.16.840.1.996298.3.579.2.462 Unknown [id number] 2.16.840.1.190249.3.579.2.462 Unknown [id number] 2.16.840.1.949414.3.579.2.462 Unknown [id number] 2.16.840.1.726169.3.579.2.462 Unknown [id number] 2.16.840.1.209487.3.579.2.462 Unknown [id number] 2.16.840.1.627567.3.579.2.462 Unknown [id number] 2.16.840.1.186625.3.579.2.462 Social History Date Type Detail Facility Start: 02-28-2021 End: 03-30-2021 Tobacco smoking status NHIS Current every day smoker [facility] History of tobacco use Cigarette Smoker [employer] [facility] Start: 02-28-2021 End: 03-30-2021 Cigarettes smoked current (pack per day) - Reported [employer] Start: 02-28-2021 End: 03-30-2021 Tobacco use and exposure Never used [employer] Start: 02-28-2021 End: 03-30-2021 Alcohol intake Lifetime non-drinker (finding) Start: 02-28-2021 History SDOH Alcohol Frequency 1 Start: 1955 Sex Assigned At Not on file A [facility] Start: 01-04-2022 End: 02-18-2024 Tobacco smoking status NHIS Unknown if ever smoked [facility] Start: 1955 Sex Assigned At Female [facility] Start: 10-27-2024 End: 02-23-2025 Tobacco smoking status NHIS Ex-smoker (finding) [facility] Start: 01-23-2025 Sex Female (finding) [facility] NEGATED: Highlighted row Not [facility] Medical Equipment Procedure Code Equipment Code Equipment Origin al Text Equipment Identifier Dates Gloria fundoplication PLEDGET,SO FT 8x8x1.6mm FDA Start: 04-11-2022 Gloria fundoplication PLEDGET,SO FT 8x8x1.6mm FDA Start: 04-11-2022 Gloria fundoplication PLEDGET,SO FT 8x8x1.6mm FDA Start: 04-11-2022 Gloria fundoplication Ligation c lip, synthetic polymer, non-bioabsorbable ()[id number] FDA Start: 04-11-2022 Gloria fundoplication PLEDGET,SO FT 8x8x1.6mm FDA Start: 04-11-2022 Gloria fundoplication PLEDGET,SO FT 8x8x1.6mm FDA Start: 04-11-2022 Gloria fundoplication PLEDGET,SO FT 8x8x1.6mm FDA Start: 04-11-2022 Gloria fundoplication PLEDGET,SO FT 8x8x1.6mm FDA Start: 04-11-2022 Gloria fundoplication PLEDGET,SO FT 8x8x1.6mm FDA Start: 04-11-2022 Gloria fundoplication PLEDGET,SO FT 8x8x1.6mm FDA Start: 04-11-2022 Gloria fundoplication PLEDGET,SO FT 8x8x1.6mm FDA Start: 04-11-2022 Gloria fundoplication PLEDGET,SO FT 8x8x1.6mm FDA Start: 04-11-2022 Gloria fundoplication PLEDGET,SO FT 8x8x1.6mm FDA Start: 04-11-2022 Gloria fundoplication PLEDGET,SO FT 8x8x1.6mm FDA Start: 04-11-2022 Gloria fundoplication PLEDGET,SO FT 8x8x1.6mm FDA Start: 04-11-2022 Gloria fundoplication PLEDGET,SO FT 8x8x1.6mm FDA Start: 04-11-2022 Gloria fundoplication PLEDGET,SO FT 8x8x1.6mm FDA Start: 04-11-2022 Gloria fundoplication PLEDGET,SO FT 8x8x1.6mm FDA Start: 04-11-2022 Gloria fundoplication PLEDGET,SO FT 8x8x1.6mm FDA Start: 04-11-2022 Gloria fundoplication PLEDGET,SO FT 8x8x1.6mm FDA Start: 04-11-2022 Gloria fundoplication PLEDGET,SO FT 8x8x1.6mm FDA Start: 04-11-2022 Gloria fundoplication PLEDGET,SO FT 8x8x1.6mm FDA Start: 04-11-2022 Gloria fundoplication PLEDGET,SO FT 8x8x1.6mm FDA Start: 04-11-2022 Gloria fundoplication PLEDGET,SO FT 8x8x1.6mm FDA Start: 04-11-2022 Gloria fundoplication PLEDGET,SO FT 8x8x1.6mm FDA Start: 04-11-2022 Gloria fundoplication PLEDGET,SO FT 8x8x1.6mm FDA Start: 04-11-2022 Gloria fundoplication PLEDGET,SO FT 8x8x1.6mm FDA Start: 04-11-2022 Gloria fundoplication PLEDGET,SO FT 8x8x1.6mm FDA Start: 04-11-2022 Gloria fundoplication PLEDGET,SO FT 8x8x1.6mm FDA Start: 04-11-2022 Gloria fundoplication PLEDGET,SO FT 8x8x1.6mm FDA Start: 04-11-2022 Gloria fundoplication PLEDGET,SO FT 8x8x1.6mm FDA Start: 04-11-2022 Gloria fundoplication PLEDGET,SO FT 8x8x1.6mm FDA Start: 04-11-2022 Gloria fundoplication PLEDGET,SO FT 8x8x1.6mm FDA Start: 04-11-2022 Gloria fundoplication PLEDGET,SO FT 8x8x1.6mm FDA Start: 04-11-2022 Gloria fundoplication PLEDGET,SO FT 8x8x1.6mm FDA Start: 04-11-2022 Gloria fundoplication PLEDGET,SO FT 8x8x1.6mm FDA Start: 04-11-2022 Gloria fundoplication PLEDGET,SO FT 8x8x1.6mm FDA Start: 04-11-2022 Arthroplasty, hip, total, using robot-assisted navigation Accolade 127 degree Neck Angle Hip Stem FDA Start: 11-18-2024 Arthroplasty, hip, total, using robot-assisted navigation Trident II Tritanium Clusterhole Acetabular Shell FDA Start: 11-18-2024 Arthroplasty, hip, total, using robot-assisted navigation Trident X3 10 degree Polyethylene insert FDA Start: 11-18-2024 Arthroplasty, hip, total, using robot-assisted navigation ([id number]) Ceramic femoral head prosthesis ([id number] FDA Start: 11-18-2024 Arthroplasty, hip, total, using robot-assisted navigation ([id number]) Orthopaedic bone screw, non-bioabsorbable, sterile ()[id number] FDA Start: 11-18-2024 Arthroplasty, hip, total, using robot-assisted navigation ([id number]) Orthopaedic bone screw, non-bioabsorbable, sterile ()[id number] FDA Start: 11-18-2024 Arthroplasty, hip, total, using robot-assisted navigation Accolade 127 degree Neck Angle Hip Stem FDA Start: 11-18-2024 Arthroplasty, hip, total, using robot-assisted navigation Trident II Tritanium Clusterhole Acetabular Shell FDA Start: 11-18-2024 Arthroplasty, hip, total, using robot-assisted navigation Trident X3 10 degree Polyethylene insert FDA Start: 11-18-2024 Goals Date Patient Goal Desired Activity /State Functional Status Date Assessment Result Facility 04-12-2022 Functional status Ambulates;Bathroom Priv ilege [facility] Work Phone: Mental Status Date Assessment Result Facility 02-27-2025 Cognitive function [facility] Work Phone: 11-18-2024 Cognitive function Voice/Name [facility] Work Phone: 04-12-2022 Cognitive function Voice/Name [facility] Work Phone: 12-29-2021 Cognitive function Awake;Alert;A ppropriate;Follo ws Commands [facility] Work Phone: 12-02-2021 Cognitive function Level Of Cons ciousness Sedated [facility] Work Phone: 12-02-2021 Cognitive function Voice/Name [facility] Work Phone: Clinical Notes 02-28-2021 to 02-27-2025 Note Date & Type Note Facility 02-27-2025 Note [facility] Medical Records Department [address] [place] [address] History Physical Exam 02/27/25 1051 MR#: [id number] Acct: [id number] Name: PILAR PERSAUD Rep #: [id number] : 1955 69 From: Vernon Canas MD PCP: Dr. Anastacio Lloyd MD Status:[facility] Location: [place] [address] HPI - General General Date of Admission: 02/27/25 Date of Service: 02/27/25 Chief Complaint: EGD HPI Narrative The patient is a 69-year-old female who is being seen today for EGD. Her last EGD was performed about 3 years ago. This was just prior to a Gloria fundoplication/hiatal hernia repair surgery as treatment of Izaguirre's. 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 She states that her symptoms of reflux and heartburn have not been present since surgery. She continues to stay on PPI therapy as well. She was told to have a repeat EGD in 3 years. She presents today to discuss getting this arranged. It appears that her last colonoscopy was in 2021 as well. This was unremarkable. [facility] Medical History Former smoker Post-menopausal Vertigo PONV (postoperative nausea and vomiting) Gastric reflux Shortness of breath on exertion Former smoker Heart murmur Marijuana use Restless legs Heartburn Hiatal hernia Wears glasses Alcohol use High cholesterol Back pain Chronic cough Leg cramps History of irregular heartbeat Acid reflux Constipation Arthritis Dysphagia injection in hip Home Medications ???Medication ???Instructions ???Recorded ???Last Taken ???Type cholecalciferol (vitamin D3) 50 50 mcg PO DAILY 09/22/21 11/17/24 History mcg (2,000 unit) capsule oxaprozin 600 mg tablet 600 mg PO BID 09/22/21 11/17/24 Hi story cyclobenzaprine 10 mg tablet 10 mg PO HS 11/11/21 11/17/24 Hist ory oxymetazoline 0.05 % nasal spray 1 spray intranasal ONCE PRN DRY 04/09/22 History (12 Hour Nasal Relief [place]) NOSE aspirin 81 mg tablet 81 mg PO DAILY 11/30/21 02/24/25 H istory atorvastatin 40 mg tablet 40 mg PO QHS 11/30/21 11/17/24 His tory famotidine 20 mg tablet 20 mg PO DAILY #90 tabs 07/24/22 0 11/18/24 Rx estradiol 0.01% (0.1 mg/gram) See Rx Instructions vaginal Unknown Rx vaginal cream .COMPLEX #42.5 grams oxyquinoline 0.025 %-sodium lauryl See Rx Instructions vaginal 07/29 Unknown Rx sulfate 0.01 % vaginal gel .COMPLEX #113.4 grams (Trimo-Wallis Jelly) denosumab 60 mg/mL subcutaneous 60 mg subcut [id number] 08/25/24 Unk nown History syringe (Prolia) calcium 600 mg (as 1 tab PO DAILY 02/23/25 Unknown Hi story carbonate)-vitamin D3 5 mcg (200 unit) tablet (Calcium 600 + D(3)) Allergy/AdvReac Type Severity Reaction Status Date / Time Tea (Nataly Sinensis) Allergy Intermediate Hives Verified 02/27/25 10:06 green tea Allergy PT UNSURE Verified 02/27/25 10:06 OF REACTION orange juice Allergy Unknown Verified 02/27/25 10:06 nickel AdvReac Severe Rash Verified 02/27/25 10:06 Family History Mother Diabetes Heart disease Hypertension High cholesterol Sister Diabetes Heart disease High cholesterol Hypertension Father Diabetes Daughter Thyroid disorder Surgical History (Updated 02/23/25 @ 13:37 by Siobhan Mota) H/O total hip arthroplasty S/P hernia repair History of endoscopy History of colonoscopy History of appendectomy History of cataract surgery History of tubal ligation Social History household members: spouse and other details: grandson number of children: 2 current occupational status: retired history of recent travel: No Smoking Status: Former smoker alcohol intake: current alcohol intake frequency: a few times a month details: socially substance use type: does not use what type of physical activity do you participate in: none seatbelt use: always do you feel safe at home: Yes additional social history: - Isaak Vital Signs Vital Signs Vital Signs: 02/27/25 10:08 02/27/25 10:08 Temperature 98.1 F Temperature Source Temporal Pulse Rate 69 Respiratory Rate 16 Respiratory Pattern Normal Blood Pressure 137/99 H Blood Pressure Mean 111 Blood Pressure Source Monitor Blood Pressure Position Semi-Fowlers Blood Pressure Location Left Arm Pulse Ox 98 Oxygen Delivery Method Room Air Physical Exam Const alert, oriented x3 and no apparent distress Assessment Plan Assessment/Plan (1) Izaguirre's esophagus determined by biopsy: PLAN: Plan EGD with biopsies today 02/27/25 1054 Cosigner Signature (if applicable): CC: Dr. Anastacio Lloyd MD; Dr. Vernon Flowers (more content not included)... [facility] 12-29-2024 Evaluation note Diagnosis Onset Date Resolution Orthopedic aftercare acute Febr ry 2024 10:20am Izaguirre's esophagus determined by biopsy acute February 05, 2025 12:45pm Izaguirre's esophagus determined by biopsy acute February 27, 2025 9:46am Encounter for routine gynecological examination noneactive April 14, 2025 11:10am [facility] Work Phone: 1(850) 727-314401-27-2025 Evaluation note* Diagnosis Onset Date Resolution Status Admit Date Orthopedic aftercare acute Irving carlo 2024 10:13am Orthopedic aftercare acute Febr uary 2024 10:20am [facility] Work Phone: 1(185) 833-858701-14-2025 [facility] Medical Records Department [address] [place] [address] History Physical Exam 11/18/24 0718 MR#: [id number] Acct: [id number] Name: SHAWANDAPILARLAINEY CONTRERAS Rep #: [id number] : 1955 69 From: Yadiel Quinn DO PCP: Dr. Anastacio Lloyd MD Status:[facility] Location: [place] [address] History and Physical Date of Admission: 11/18/24 [facility] [address] [place] [address] OFFICE VISIT Date of Service: 09/15/24 MR#: [id number] Acct: [id number] Name: PILAR PERSAUD Rep #: [id number] : 1955 Provider: Dr. Yadiel Quinn DO Age/Sex: 69/F Location: [facility] [place] Status: Signed Intake Vital Signs 08/13/2410:50 Height 5 ft 7 in Intake Visit Reasons: left hip Chief Complaint: left hip Accompanied by: Self Allergies green tea Allergy (Verified 09/15/24 10:16) PT UNSURE OF REACTIONorange juice Allergy (Verified 09/15/24 10:16) Unknownnickel Adverse Reaction (Severe, Verified 09/15/24 10:16) Rash Medications ???Medication ???Instructions ???Recorded ???Confirmed ???Type cholecalciferol (vitamin D3) 50 50 mcg PO DAILY 09/22/21 09/15/24 History mcg (2,000 unit) capsule oxaprozin 600 mg tablet 600 mg PO BID 09/22/21 09/15/24 History cyclobenzaprine 10 mg tablet 10 mg PO HS 11/11/21 09/15/24 History oxymetazoline 0.05 % nasal spray 1 spray intranasal ONCE PRN DRY 11/11/21 09/15/24 History (12 Hour Nasal Relief [place]) NOSE aspirin 81 mg tablet 81 mg PO DAILY 11/30/21 09/15/24 History atorvastatin 40 mg tablet 40 mg PO QHS 11/30/21 09/15/24 History famotidine 20 mg tablet 20 mg PO DAILY #90 tabs 07/24/22 09/15/24 Rx estradiol 0.01% (0.1 mg/gram) See Rx Instructions vaginal 02/13/23 09/15/24 Rx vaginal cream .COMPLEX #42.5 grams oxyquinoline 0.025 %-sodium lauryl See Rx Instructions vaginal 08/13/24 09/15/24 Rx sulfate 0.01 % vaginal gel .COMPLEX #113.4 grams (Trimo-Wallis Jelly) denosumab 60 mg/mL subcutaneous 60 mg subcut [id number] 08/25/24 09/15/24 History syringe (Prolia) Have you fallen in the past year?: No PFSH Medical History Marijuana use Restless legs Heartburn Hiatal hernia Wears glasses Alcohol use High cholesterol Back pain Smoker Chronic cough Leg cramps History of irregular heartbeat Acid reflux Constipation Arthritis Dysphagia injection in hip Surgical History S/P hernia repair History of endoscopy History of colonoscopy History of appendectomy History of cataract surgery History of tubal ligation Family History Mother Diabetes Heart disease Hypertension High cholesterolSister Diabetes Heart disease High cholesterol HypertensionFather DiabetesDaughter Thyroid disorder Social History household members: spouse and other details: grandson number of children: 2 current occupational status: retired history of recent travel: No Smoking Status: Current every day smoker tobacco type: cigarettes alcohol intake: current alcohol intake frequency: a few times a month details: socially substance use type: does not use what type of physical activity do you participate in: none seatbelt use: always do you feel safe at home: Yes additional social history: - Isaak SANCHES left hip Details: This documentation accurately reflects the service provided and the decisions made by me, Dr. Yadiel Quinn, DO 09/15/24 0751. Part of today???s visit was documented by Pam FUENTES, acting as scribe. PILAR PERSAUD is a 69 year old F 09/15/2024 :here today for a f/u after seeing Dr. Black. She states that Dr. Black advised her to proceed with the hip first. She would like to discuss hip replacement today. She continues to smoke a pack a day. She tried quitting this morning and went for [address] hour. 09/05/2024 Dr. Black office visit note: Explained imaging findings in detail. Given her most significant pain being in her left groin and imaging findings, recommend that her left hip take priority before any back surgical recommendations. Her lower back MRI findings seem worse stenosis on the right than the left. She does have left lower extremity radiculopathy which could be explained by the instability at L4-5. Explained to her that her claudication is likely related to the lower back as well as the posterior hip pain and also related to the back, however her groin pain and hip movement pain and pain with weight (more content not included)... [facility]03-10-2023 Discharge summary [facility] January 12, 2023 12:13pm Note Date/Time January 12, 2023 12: 13pm [facility] Physical Therapy [facility] [address] [place] [address] / REHABILITATION SERVICES DISCHARGE SUMMARY MR#: [id number] Acct: [id number] Name: PILAR PERSAUD Rep #: [id number] : 1955 67 From: Aron Patino DPT, OCS, CSCS Referring Dr.: Dr. Yadiel Quinn DO Status: REG RCR Insurance: MEDICARE PART A B ANTHEM It has been my pleasure to treat PILAR PERSAUD referred by Dr. Yadiel Quinn DO, with the diagnosis of DDD, LBP, OA L hip for a total of 8 visit(s). Discharge Date: 01/12/23 Please see the following information for a summary of their discharge status. Subjective: Making alot of proress. Only bothered now by walking long distance. However doesn't drag leg anymore for short distances. bending to clean and vaccuum is better but still up to 4/10 and goes away with rest. Sleep is OK. Does not hurt all day anymore. Doing home exercises 3x/day and it really helps. LBP Pain Intensity (Out of 10): 5 % Improvement: 75 Objective/Function: LB AROM improved adn without pain, just some groin pulling L. Walks well but avoids L hip extension likely due to hip degeneration. Improved oswestry. appears as if remaining pain is hip related and will f/u with doctor next week regarding options for this. Goal 1:: Pain LB and burning Leg 2/10 at worst and intermittent and 75% better Goal Progress: 75% Goal 2:: Sleep without waking at night due to pain Goal Progress: Goal Met Goal 3:: I management of hip and leg symptoms with exercises Goal Progress: Goal Met Goal 4:: oswestry scorre 5 or less. Goal Progress: Progressing Plan: d/c to HEP If there are questions or concerns regarding this patient's physical therapy, please feel free to call me at [phone]. Thank you for the referral of thispatient. Sincerely, Aron Patino, DPT, OCS, CSCS Balance/Gait/Functional tests - Balance/Special Test Scores Oswestry Low Back Score: 15 <Electronically signed by Aron Patino DPT, OCS, CSCS> 01/12/23 1213 CC: Dr. Anastacio Lloyd MD; Dr. Yadiel Quinn, DO ~ EBG Signed [facility] Work Phone: 1(198) 611-392205-26-2021 History of Present illness Narrative* Kielphil Allen, DO - 03/30/2021 3:00 PM EDT Images from the original note were not included. History of Present Illness Presence of Pain: denies pain/discomfort. Total time spent in this encounter was 31 minutes. Energylevel is pretty good. Joint pain is not today. Neck pain is no. Patient is here for a 2 Week F/U. Patient states that she has not had any leg cramps since her last appointment. Patient states she hasmore feeling in her toes. Patient states she is doing better since her last appointment. Patient sta emanuel her new medications are doing well. Patient is still smoking. Daypro and Flexeril are helping. Review of Systems Constitutional: Negative. HENT: Negative. Eyes: Negative. Respiratory: Negative. Cardiovascular: Negative. Gastrointestinal: Negative. Endocrine: Negative. Genitourinary: Negative. Musculoskeletal: Negative. Skin: Negative. Allergic/Immunologic: Negative. Neurological: Negative. Hematological: Negative. Psychiatric/Behavioral: Negative. Vitals: Blood pressure 124/70, pulse 61, temperature 98.2 F (36.8 C), height 1.715 m (5' 7.5), weight 72.6 kg (160 lb), SpO2 97 %. Physical Exam Vitals and nursing note reviewed. Constitutional: Appearance: Normal appearance. HENT: Head: Normocephalic and atraumatic. Right Ear: External ear normal. Left Ear: External ear normal. Nose: Nose normal. Mouth/Throat: Comments: mask Eyes: Extraocular Movements: Extraocular movements intact. Conjunctiva/sclera: Conjunctivae normal. Pupils: Pupils are equal, round, and reactive to light. Cardiovascular: Rate and Rhythm: Normal rate and regular rhythm. Pulses: Radial pulses are 2+ on the right side and 2+ on the left side. Heart sounds: Normal heart sounds. Pulmonary: Effort: Pulmonary effort is normal. Breath sounds: Normal breath sounds. Abdominal: General: Bowel sounds are normal. Palpations: Abdomen is soft. Musculoskeletal: Right shoulder: Decreased range of motion. Left shoulder: Decreased range of motion. Right upper arm: Normal. Left upper arm: Normal. Right elbow: Normal. Left elbow: Normal. Right forearm: Normal. Left forearm: Normal. Right wrist: Decreased range of motion. Left wrist: Decreased range of motion. Right hand: Decreased range of motion. Left hand: Decreased range of motion. Arms: Cervical back: Neck supple. Right upper leg: Normal. Left upper leg: Normal. Right knee: Normal. Left knee: Bony tenderness present. Decreased range of motion. Right lower leg: Normal. Left lower leg: Normal. Right ankle: Decreased range of motion. Left ankle: Decreased range of motion. Legs: Skin: General: Skin is warm and dry. Comments: pate Neurological: Mental Status: She is alert and oriented to person, place, and time. Cranial Nerves: Cranial nerves are intact. Sensory: Sensation is intact. Motor: Weakness present. Gait: Gait is intact. 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 Behavior: Behavior normal. Thought Content: Thought content normal. Judgment: Judgment normal. Neurological Exam Mental Status Alert. Cranial Nerves CN III, IV, : Extraocular movements intact bilaterally. Pupils equal round and reactive to light bilaterally. Gait Normal gait. Assessment and Plan No evidence of active CTD/CVD/Inflammatory arthritis/SLE/Drug induced lupus. At patient's request will F/U with me on a PRN basis. I return her to your care. Given Positive Chromatin. AKASH may be form exposure to medication or infections and may hopefully fade away. Encounter Diagnoses Name Primary? Vitamin D deficiency Yes Primary osteoarthritis of both hands Primary osteoarthritis of both feet Primary osteoarthritis of both hips Acute cystitis with hematuria AKASH positive care home current use of non-steroidal anti-inflammatories (NSAID) Elevated BUN 1. Time was spent with the patient today in education in re: to all their medical conditions. A complete H&P&ROS was obtained and is either in this note or in the EHR. Please do not hesitate to contact me with any questions or concerns re: this patient. Past History Past medical, surgical, family, and social histories have been reviewed and updated with the patient today and are located elsewhere in the medical record. 2. No evidence of active CTD/CVD/Inflammatory arthritis/SLE/Drug induced lupus 3. Patient is taking Saline Nasal [place] 4. Ua showed E. Coli UTI treated and repeat urine shows no infection 5. Patient told to stop smoking 6. Monitor CBC/LFT/Renal func every 6-12 months as long as patient is on daily NSAID 7. AKASH is positive (times 2) 8. Rx given for PT/OT patient has been and is doing HEP. 9. Would monitor CBC/LFT/Renal function test every 6-12 months as long as AKASH and/or pAANCA is positive. 10. Chromatin is elevated at > 8.0 11. CRP is negative at < 7.9 12. If neck pain continues rec: eval by spinal surgery and/or chronic pain management 13 If hip and knee problems continue rec: ortho eval 14. C3 is normal at 117 15. C4 is normal at 20 16. ESR is normal at 28 17. Uric acid is normal at 2.9 18. BUN is elevated at 21 19. Low 25 hydroxy Vit D level at 22.5 with normal 1,25 dihydroxy Vit D level 20. Patient started of Dosoquin 1 pill a day 21. Repeat Vit D level on or about 05/30/2021 with copy to PCP 22. Negative CCP, MPO, PR3, cANCA, atypical pANCA, Celiac 23. pANCA is positive at 1:80 with negative MPO. Therefore negative 24. SOHAN level is normal at 81 25. Patient declines referral to sports medicine 26. Given Positive Chromatin would suspect exposure to medication or infection may have caused AKASH and may hopefully fade away. 27. At patient's request will f/U with me on a PRN basis. I return her to your care. documented in this encounter04-26-2021 History of Present illness Narrative* Allen Godinez Jr., DO - 02/28/2021 10:15 AM EDT History of Present Illness Presence of Pain: complains of pain/discomfort Pain Location: leg, left, hip, left, knee, left Select Pain Scale: DVPRS (Defense and Veterans Pain Rating Scale) (Adult- Cognitively Intact) DVPRS: Rest: 7- severe pain DVPRS: Activity: 7- severe pain Select Pain Scale: DVPRS (Defense and Veterans Pain Rating Scale) (Adult- Cognitively Intact) Pain Frequency: constant Pain Quality: aching. Total time spent in this encounter was 45 minutes. Patient is being evaluatedfor an unstable chronic illness that increase morbidity and mortality. Due to patient's coexisting health problems and co-morbidities treatment is and will be very difficult. Patient was referred by PCP Dr. Kang. Patient states she has joint pain everywhere but her left leg, hip, and knee is theworse. Patient states she has swelling in her LOS toe. Review of Systems Constitutional: Positive for fatigue. HENT: Negative. Eyes: Negative. Respiratory: Negative. Cardiovascular: Negative. Gastrointestinal: Negative. Endocrine: Negative. Genitourinary: Negative. Musculoskeletal: Positive for arthralgias, neck pain and neck stiffness. Skin: Negative. Allergic/Immunologic: Negative. Neurological: Negative. Hematological: Negative. Psychiatric/Behavioral: Negative. Vitals: Blood pressure 132/80, pulse 64, temperature 97.2 F (36.2 C), temperature source Temporal, height 1.715 m (5' 7.5), weight 72.6 kg (160 lb), SpO2 98 %. Physical Exam Vitals and nursing note reviewed. Constitutional: Appearance: Normal appearance. HENT: Head: Normocephalic and atraumatic. Right Ear: External ear normal. Left Ear: External ear normal. Nose: Nose normal. Mouth/Throat: Comments: mask Eyes: Extraocular Movements: Extraocular movements intact. Conjunctiva/sclera: Conjunctivae normal. Pupils: Pupils are equal, round, and reactive to light. Cardiovascular: Rate and Rhythm: Normal rate and regular rhythm. Pulses: Carotid pulses are 2+ on the right side and 2+ on the left side. Radial pulses are 2+ on the right side and 2+ on the left side. Dorsalis pedis pulses are 0 on the right side and 1+ on the left side. Posterior tibial pulses are 0 on the right side and 0 on the left side. Heart sounds: Normal heart sounds. Comments: No carotid bruits. L subclavian bruit Pulmonary: Effort: Pulmonary effort is normal. Breath sounds: Normal breath sounds. Abdominal: General: Bowel sounds are normal. Palpations: Abdomen is soft. Musculoskeletal: Right shoulder: Decreased range of motion. Left shoulder: Decreased range of motion. Right upper arm: Normal. Left upper arm: Normal. Right elbow: Normal. Left elbow: Normal. Right forearm: Normal. Left forearm: Normal. Right wrist: Decreased range of motion. Left wrist: Decreased range of motion. Right hand: Decreased range of motion. Left hand: Decreased range of motion. Arms: Cervical back: Neck supple. Tenderness present. Decreased range of motion. Thoracic back: Normal. Lumbar back: Decreased range of motion. Right hip: Tenderness present. Decreased range of motion. Left hip: Tenderness present. Decreased range of motion. Right upper leg: Normal. Left upper leg: Normal. Right knee: Normal. Left knee: Bony tenderness present. Decreased range of motion. Right lower leg: Normal. Left lower leg: Normal. Right ankle: Decreased range of motion. Left ankle: Decreased range of motion. Right foot: Decreased range of motion. Deformity present. Left foot: Decreased range of motion. Deformity present. Legs: Skin: General: Skin is warm and dry. Neurological: Mental Status: She is alert and oriented to person, place, and time. Cranial Nerves: Cranial nerves are intact. Sensory: Sensation is intact. Motor: Weakness present. Gait: Gait is intact. Deep Tendon Reflexes: Reflexes are normal and symmetric. 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 Behavior: Behavior normal. Thought Content: Thought content normal. Judgment: Judgment normal. Neurologic Exam Mental Status Oriented to person, place, and time. Cranial Nerves CN III, IV, Pupils are equal, round, and reactive to light. Gait, Coordination, and Reflexes Gait Gait: normal Assessment and Plan Encounter Diagnoses Name Primary? Cervicalgia Yes Disorder of bone and cartilage Primary osteoarthritis of both hands Bilateral hip pain Chronic pain of left knee Primary osteoarthritis of both feet Fatigue, unspecified type AKASH positive care home current use of non-steroidal anti-inflammatories (NSAID) Arterial bruit 1. Time was spent with the patient today in education in re: to all their medical conditions. A complete H&P&ROS was obtained and is either in this note or in the EHR. Please do not hesitate to contact me with any questions or concerns re: this patient. Past History Past medical, surgical, family, and social histories have been reviewed and updated with the patient today and are located elsewhere in the medical record. 2. Thank you for allowing me to participate in the care of your patient. With your permission I would like to F/U with your patient. 3. Differenetial Diagnosis includes but is not limited to Autoimmune Disease, Connective Tissue Disease, Collagen Vascular Disorder, Infection, and Neoplasm. 4. Lab and x-ray and F/U with me in 2 weeks 5. Patient told to stop smoking 6. Monitor CBC/LFT/Renal func every 6-12 months as long as patient is on daily NSAID 7. Patient given educational material on OA in the from of a pamphlet from the arthritis foundation. Patient told that PT and keeping ideal body wt would be the cornerstone of treatment 8. Rx given for PT/OT patient has been and is doing HEP. 9. Would monitor CBC/LFT/Renal function test every 6-12 months as long as AKASH is positive. 10. Patient given educational material on SLE in the form of a pamphlet from the arthritis foundation. Different treatment options were discussed with the patient today. 11. Patient given educational material on OA in the from of a pamphlet from the arthritis foundation. Patient told that PT and keeping ideal body wt would be the cornerstone of treatment 12. If neck pain continues rec: eval by spinal surgery and/or chronic pain management 13 If hip and knee problems continue rec: ortho eval 14. Rx given for Flexeril 15. Rx given for Daypro 1 or 2 pills a day documented in this encounterEvaluation note* Diagnosis Cervicalgia- Primary Disorder of bone and cartilage Disorder of bone and cartilage, unspecified Primary osteoarthritis of both hands Bilateral hip pain Pain in joint, pelvic region and thigh Chronic pain of left knee Pain in joint, lower leg Primary osteoarthritis of both feet Fatigue, unspecified type AKASH positive Other and unspecified nonspecific immunological findings svp digital sales current use of non-steroidal anti-inflammatories (NSAID) Encounter for long-term (current) use of non-steroidal anti-inflammatories Arterial bruit Other symptoms involving cardiovascular system documented in this encounter Evaluation note* Diagnosis Cervicalgia Disorder of bone and cartilage Disorder of bone and cartilage, unspecified Primary osteoarthritis of both hands Bilateral hip pain Pain in joint, pelvic region and thigh Chronic pain of left knee Pain in joint, lower leg Primary osteoarthritis of both feet Fatigue, unspecified type AKASH positive Other and unspecified nonspecific immunological findings svp digital sales current use of non-steroidal anti-inflammatories (NSAID) Encounter for long-term (current) use of non-steroidal anti-inflammatories Arterial bruit Other symptoms involving cardiovascular system [facility] Diagnosis Cervicalgia Disorder of bone and cartilage Disorder of bone and cartilage, unspecified Primary osteoarthritis of both hands Bilateral hip pain Pain in joint, pelvic region and thigh Chronic pain of left knee Pain in joint, lower leg Primary osteoarthritis of both feet Fatigue, unspecified type AKASH positive Other and unspecified nonspecific immunological findings care home current use of non-steroidal anti-inflammatories (NSAID) Encounter for long-term (current) use of non-steroidal anti-inflammatories Arterial bruit Other symptoms involving cardiovascular system [facility]* Diagnosis Cervicalgia Disorder of bone and cartilage Disorder of bone and cartilage, unspecified Primary osteoarthritis of both hands Bilateral hip pain Pain in joint, pelvic region and thigh Chronic pain of left knee Pain in joint, lower leg Primary osteoarthritis of both feet Fatigue, unspecified type AKASH positive Other and unspecified nonspecific immunological findings care home current use of non-steroidal anti-inflammatories (NSAID) Encounter for long-term (current) use of non-steroidal anti-inflammatories Arterial bruit Other symptoms involving cardiovascular system [facility]* Diagnosis Vitamin D deficiency- Primary Unspecified vitamin D deficiency Primary osteoarthritis of both hands Primary osteoarthritis of both feet Primary osteoarthritis of both hips Primary localized osteoarthrosis, pelvic region and thigh Acute cystitis with hematuria Acute cystitis AKASH positive Other and unspecified nonspecific immunological findings svp digital sales current use of non-steroidal anti-inflammatories (NSAID) Encounter for long-term (current) use of non-steroidal anti-inflammatories Elevated BUN Other abnormal blood chemistry [facility]* Diagnosis Onset Date Resolution Status Acid reflux acute Screening for intestinal cancer acute Acid reflux acute Izaguirre's esophagus determined by biopsy acute Acid reflux acute Izaguirre's esophagus determined by biopsy acute Hiatal hernia with gastroesophageal reflux acute [facility] Work Phone: Evaluation note* Diagnosis Onset Date Resolution Status Acid reflux acute Izaguirre's esophagus determined by biopsy acute Acid reflux acute Izaguirre's esophagus determined by biopsy acute Hiatal hernia with gastroesophageal reflux acute Hiatal hernia with gastroesophageal reflux acute Acid reflux acute Izaguirre's esophagus determined by biopsy acute Dizziness acute Hiatal hernia with gastroesophageal reflux acute [facility] Work Phone: Evaluation note* Diagnosis Onset Date Resolution Status Hiatal hernia with gastroesophageal reflux acute Acid reflux acute Izaguirre's esophagus determined by biopsy acute Dizziness acute Hiatal hernia with gastroesophageal reflux acute Izaguirre's esophagus determined by biopsy acute Constipation acute Hiatal hernia with gastroesophageal reflux acute [facility] Work Phone: Evaluation note* Diagnosis Onset Date Resolution Status Izaguirre's esophagus determined by biopsy acute Constipation acute Hiatal hernia with gastroesophageal reflux acute Izaguirre's esophagus determined by biopsy acute [facility] Work Phone: Evaluation noteNo assessment information available [facility] Work Phone: Evaluation note* Diagnosis Onset Date Resolution Status Low back pain acute Lumbar degenerative disc disease acute Osteoarthritis of left hip a cute Piriformis syndrome of left side acute Tobacco abuse acute Chronic back pain chronic [facility] Work Phone: Evaluation note* Diagnosis Onset Date Resolution Status Cystocele without uterine prolapse acute Pessary maintenance acute Cystocele without uterine prolapse acute Inclusion cyst acute Pessary maintenance acute [facility] Work Phone: Evaluation note* Diagnosis Onset Date Resolution Status Cystocele without uterine prolapse acute Inclusion cyst acute Pessary maintenance acute [facility] Work Phone: Evaluation note* Diagnosis Onset Date Resolution Status Dysuria noneactive [facility] Work Phone: Evaluation note* Diagnosis Onset Date Resolution Status Dysuria noneactive Cystocele without uterine prolapse acute Pessary maintenance acute Encounter for routine gynecological examination noneactive Dysuria noneactive [facility] Work Phone: Reason for referral (narrative)No reason for referral information availableN[facility] Work Phone: Summary Purpose Family History No Family History Records Found Relationship Condition Age at Onset Recorded Date/T vasquez mother Diabetes mellitus Unknown Cardiac disease Unknown Hypertension Unknown High blood cholesterol Unknown sister Diabetes mellitus Unknown father Diabetes mellitus Unknown daughter Disorder of thyroid Unknown Advance Directives No Advanced Directives Records Found Advance Directive Response Recorded Date/ Time Living Will No November 30 10:37am Power of Certified Mortician No November 30, 2021 10:37am Advance Directive Response Recorded Date/ Time Living Will No April 11, 2022 1 :32pm Power of Certified Mortician No April 11, 2022 1:32pm Advance Directive Response Recorded Date/ Time Living Will No April 11, 2022 1 2:32pm Power of Certified Mortician No April 11, 2022 12:32pm Advance Directive Response Recorded Date/ Time Living Will No October 27 2:57pm Do you have a Healthcare Power of Certified Mortician? No October 27, 2024 2:57pm Advance Directive Response Recorded Date/ Time Living Will No February 23, 2025 1:37pm Do you have a Healthcare Power of Certified Mortician? No February 23, 2025 1:37pm Chief Complaint and Reason for Visit Chief Complaint E ORDER DYSPHAGIA DYSPHAGIA TOBACCO USE/DECREASED PEDAL PULSES Pre-Surgical Testing PAT DISCUSS HIATAL HERNIA OPTIONS INTERVENTIONAL RADIOLOGY discuss manometry Reason for Visit Acid reflux Screening for intestinal cancer Acid reflux Izaguirre's esophagus determined by biopsy Acid reflux Izaguirre's esophagus determined by biopsy Hiatal hernia with gastroesophageal reflux Chief Complaint DISCUSS HIATAL HERNI A OPTIONS INTERVENTIONAL RADIOLOGY discuss manometry update h&p lap toupet 04/11 LAP GLORIA LAP GLORIA LAP GLORIA Reason for Visit Acid reflux Izaguirre's esophagus determined by biopsy Acid reflux Izaguirre's esophagus determined by biopsy Hiatal hernia with gastroesophageal reflux Hiatal hernia with gastroesophageal reflux Acid reflux Izaguirre's esophagus determined by biopsy Dizziness Hiatal hernia with gastroesophageal reflux Chief Complaint LAP GLORIA update h&p lap toupet 04/11 LAP GLORIA LAP GLORIA LAP GLORIA FUP LAP GLORIA 04/11/22 SCREENING Reason for Visit Hiatal hernia with g astroesophageal reflux Acid reflux Izaguirre's esophagus determined by biopsy Dizziness Hiatal hernia with gastroesophageal reflux Izaguirre's esophagus determined by biopsy Constipation Hiatal hernia with gastroesophageal reflux Chief Complaint FUP LAP GLORIA 2 SCREENING 3 M F/U LAP GLORIA 04/11 Reason for Visit Izaguirre's esophagus determined by biopsy Constipation Hiatal hernia with gastroesophageal reflux Izaguirre's esophagus determined by biopsy Chief Complaint hip pain Chief Complaint hip pain LEFT HIP Room 4 LOW BACK PAIN, L HIP OSTEO RX HERE Reason for Visit Low back pain Lumbar degenerative disc disease Osteoarthritis of left hip Piriformis syndrome of left side Tobacco abuse Chronic back pain Chief Complaint Pessary check 6 WK FU SCREENING NICOTINE DEPENDENCE Reason for Visit Cystocele without ut erine prolapse Pessary maintenance Cystocele without uterine prolapse 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 6 WK FU SCREENING NICOTINE DEPENDENCE Reason for Visit Cystocele without ut erine prolapse 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 RX INTERNAL/HERE December 062024 2:00pm left hip December 29, 2024 10:20am RM 3 December 29, 2024 10:35am Reason for Visit Admit Date Orthopedic aftercare December 01, 2024 10:13am Orthopedic aftercare December 29, 2024 10:20am Chief Complaint Admit Date L TOTAL HIP. 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 Kang. Patient states she has joint pain everywhere but her left leg, hip, and knee is the worse. Patient states she has swelling in her LOS toe. Reason Comments Joint Pain Patient is here for a 2 Week F/U. Patient states that she has not had any leg cramps since her last appointment. Patient states she has more feeling in her toes. Patient states she is doing better since her last appointment. Patient states her new medications are doing well. INFORMATION SOURCE (unrecogn ized section and content) DATE CREATED AUTHOR 04/03/2021 [facility] DATE CREATED AUTHOR AUTHOR'S ORGANIZ ATION 04/29/2025 [facility] Goals (unrecognized section and content) Goals may be documented in a n alternate sectionGoals may be documented in an alternate sectionGoals may be documented in an alternate sectionGoals may be documented in an alternate sectionGoals may be documented in an alternate sectionGoals may be documented in an alternate sectionGoals may be documented in an alternate sectionGoals may be documented in an alternate sectionGoals may be documented in an alternate sectionGoals may be documented in an alternate section Care Teams (unrecognized sec tion and content) Team Status: Active Member Role Status Dates Dr. Anastacio Strauss MD Family Provider Active Dr. Anastacio Lloyd MD Primary Care Provider Active Team Status: Inactive Member Role Status Dates Dr. Anastacio Lloyd MD Primary Care Pr ovider, Attending Provider, Referring Provider Active Team Status: Inactive Member Role Status Dates Dr. Anastacio Lloyd MD Primary Care Provider, Referr ing Provider Active Dr. Yadiel Quinn DO Attending Provider Active Team Status: Inactive Member Role Status Dates Dr. Anastacio Lloyd MD Primary Care Provider Active Dr. Juan Miguel Eli MD Attending Provider Active Team Status: Inactive Member Role Status Dates Dr. Anastacio Lloyd MD Primary Care Provider Active Dr. Yadiel Quinn DO Attending Provider, Referring Provider Active Team Status: Inactive Member Role Status Dates Dr. Anastacio Lloyd MD Primary Care Provider, Referr ing Provider Active Maribel Delgado [employer], [employer] Attending Provider Active Team Status: Inactive Member Role Status Dates Dr. Anastacio Lloyd MD Primary Care Provider Active Maribel Delgado [employer], [employer]C Attending Provider, Referring Provider Active Team Status: Inactive Member Role Status Dates Dr. Anastacio Lloyd MD Primary Care Provider, Attend ing Provider Active Team Status: Inactive Member Role Status Dates Dr. Anastacio Lloyd MD Primary Care Provider Active Start: November 10, 2024 End: November 10, 2024 Dr. Yadiel Quinn DO Attending Provider Active Start: November 10, 2024 End: November 10, 2024 Dr. Yadiel Quinn DO Referring Provider Active Start: November 10, 2024 End: November 10, 2024 Team Status: Inactive Member Role Status Dates Dr. Anastacio Lloyd MD Primary Care Provider Active Start: November 18, 2024 End: November 18, 2024 Dr. Yadiel Quinn DO Attending Provider Active Start: November 18, 2024 End: November 18, 2024 Dr. Yadiel Quinn DO Referring Provider Active Start: November 18, 2024 End: November 18, 2024 Team Status: Active Member Role Status Dates Dr. Anastacio Lloyd MD Primary Care Provider Active Start: November 18, 2024 Dr. Yadiel Quinn DO Attending Provider Active Start: November 18, 2024 Dr. Yadiel Quinn DO Referring Provider Active Start: November 18, 2024 Dr. Yadiel Quinn DO Other Provider Active St art: November 18, 2024 Team Status: Inactive Member Role Status Dates Dr. Anastacio Lloyd MD Primary Care Provider Active Start: December 01, 2024 End: December 01, 2024 Dr. Anastacio Lloyd MD Referring Provider Active Start: December 01, 2024 End: December 01, 2024 Dr. Yadiel Quinn DO Attending Provider Active Start: December 01, 2024 End: December 01, 2024 Team Status: Inactive Member Role Status Dates Dr. Anastacio Lloyd MD Primary Care Provider Active Start: December 18, 2024 End: December 18, 2024 Dr. Yadiel Quinn DO Attending Provider Active Start: December 18, 2024 End: December 18, 2024 Dr. Yadiel Quinn DO Referring Provider Active Start: December 18, 2024 End: December 18, 2024 Team Status: Inactive Member Role Status Dates Dr. Anastacio Lloyd MD Primary Care Provider Active Start: December 29, 2024 End: December 29, 2024 Dr. Anastacio Lloyd MD Referring Provider Active Start: December 29, 2024 End: December 29, 2024 Dr. Yadiel Quinn DO Attending Provider Active Start: December 29, 2024 End: December 29, 2024 Team Status: Inactive Member Role Status Dates Dr. Anastacio Lloyd MD Primary Care Provider Active Start: December 29, 2024 End: December 29, 2024 Dr. Juan Miguel Eli MD Attending Provider Active S tart: December 29, 2024 End: December 29, 2024 Team Status: Inactive Member Role Status Dates Dr. Anastacio Lloyd MD Primary Care Provider Active Start: January 14, 2025 End: January 14, 2025 Dr. Anastacio Lloyd MD Attending Provider Active Start: January 14, 2025 End: January 14, 2025 Dr. Anastacio Lloyd MD Referring Provider Active Start: January 14, 2025 End: January 14, 2025 Team Status: Active Member Role Status Dates Dr. Anastacio Lloyd MD Primary Care Provider Active Team Status: Inactive Member Role Status Dates Dr. Anastacio Lloyd MD Primary Care Provider Active Start: February 05, 2025 End: February 05, 2025 Dr. Anastacio Lloyd MD Referring Provider Active Start: February 05, 2025 End: February 05, 2025 Dr. Vernon Canas MD Attending Provider Active Start: February 05, 2025 End: February 05, 2025 Team Status: Inactive Member Role Status Dates Dr. Anastacio Lloyd MD Primary Care Provider Active Start: February 27, 2025 End: February 27, 2025 Dr. Anastacio Lloyd MD Referring Provider Active Start: February 27, 2025 End: February 27, 2025 Dr. Vernon Canas MD Attending Provider Active Start: February 27, 2025 End: February 27, 2025 Team Status: Active Member Role Status Dates Dr. Anastacio Lloyd MD Primary Care Provider Active Start: February 27, 2025 Dr. Anastacio Lloyd MD Referring Provider Active Start: February 27, 2025 Dr. Vernon Canas MD Attending Provider Active Start: February 27, 2025 Dr. Vernon Canas MD Other Provider Active St art: February 27, 2025 Team Status: Inactive Member Role Status Dates Dr. Anastacio Lloyd MD Primary Care Provider Active Start: April 14, 2025 End: April 14, 2025 Dr. Anastacio Lloyd MD Referring Provider Active Start: April 14, 2025 End: April 14, 2025 Maribel Delgado NP, ALEJANDRO-C Attending Provider Active Start: April 14, 2025 End: April 14, 2025 FOR RECORDS PERTAINING TO PATIENTS WHO ARE OR HAVE BEEN ENROLLED IN A CHEMICAL DEPENDENCY/SUBSTANCEABUSE PROGRAM, SOME INFORMATION MAY BE OMITTED. This clinical summary was aggregated from multiple sources. Caution should be exercised in using it in the provision of clinical care. This summary normalizes information from multiple sources, and as a consequence, information in this document may materially change the coding, format and clinical context of patient data. In addition, data may be omitted in some cases. CLINICAL DECISIONS SHOULD BE BASED ON THE PRIMARY CLINICAL RECORDS. [facility] [employer] provides no warranty or guarantee of the accuracy or completeness of information in this document.
--- OUTSIDE RECORDS SUMMARY | 2025-05-19 21:27 | XMS RPT_ITS | CCD ---
Author Organization [facility] Care Team Providers Care Supervisor Filtration Name Role Phone Anastacio Strauss DO Primary [...] Care Provider Dr. Anastacio Lloyd Referring Provider [place] MANAGER PROCESS IMPROVEMENT, MANAGER PROCESS IMPROVEMENT-C Maribel Attending Provider Dr. Anastacio Lloyd Primary Care Provider Dr. Anastacio Lloyd Referring Provider [place] MANAGER PROCESS IMPROVEMENT, MANAGER PROCESS IMPROVEMENT-C Maribel Attending Provider Dr. Anastacio Lloyd Primary Care Provider Dr. Anastacio Lloyd Referring Provider Sandy MANAGER PROCESS IMPROVEMENT, MANAGER PROCESS IMPROVEMENT-C Maribel Attending Provider Dr. Anastacio Lloyd Primary Care Provider Dr. Anastacio Lloyd Referring Provider [place]ham MANAGER PROCESS IMPROVEMENT, MANAGER PROCESS IMPROVEMENT-C Maribel Attending Provider Dr. Anastacio Lloyd MD Primary Care Provider [phone] Dr. Yadiel Quinn DO Attending Provider Dr. Yadiel Quinn DO Referring Provider Dr. Yadiel Quinn DO Other Provider Dr. Anastacio Lloyd MD Referring Provider Dr. Juan Miguel Eli MD Attending Provider Dr. Anastacio Lloyd MD Attending Provider Dr. Anastacio Lloyd MD Primary Care Provider Dr. Yadiel Quinn DO Attending Provider Dr. Yadiel Quinn DO Referring Provider Prema GATES, Dr. Anastacio Barrientos Referring Provider [phone] Missael GATES, Dr. Vernon San Attending Provider Missael GATES, Dr. Vernon San Other Provider Sandy ALLEN-C, Maribel Attending Provider Anastacio Lloyd Primary Care Unavailable Anastacio Lloyd Referring Unavailable Vernon Canas Attending Unavailable Anastacio Lloyd Referring Unavailable SandyMaribel Attending Unavailable Anastacio Lloyd Primary Care Unavailable SchAnastacio ayala Referring Unavailable SandyMaribel Attending Unavailable SchAnastacio aayla Primary Care Unavailable Schlucy, Anastacio Barrientos Primary [...] (6 sources) nickel sulfate Drug Allergy 6 [facility] orange allergenic extract (6 sources) orange allergenic extract Drug Allergy 6 [facility] Unclassified (9 sources) Tea Propensity to adverse reactions to drug 0 Unknown [facility] (13 sources) nickel Drug Allergy 2 Unknown, Rash [facility] (13 sources) [place] juice Allergy to substance 2 Unknown [facility] (10 sources) Green Tea Extract Drug Allergy 2 PT UNSURE OF REACTION [facility] (2 sources) Tea (Nataly Sinensis); Translations: [Tea (Nataly Sinensis)] Allergy to substance 5 Hives [facility] (1 source) Green Tea Extract Drug Allergy 5 [facility] Repository (1 source) nickel Drug Allergy 5 [facility] Repository (1 source) Quinwood juice Drug allergy (disorder) 5 [facility] Repository Medications Current Medications Medication Drug Class(es) [...] 1:00am Start: 02-28-2021 take 1 tablet by hcarity th three times daily as needed cyclobenzaprine 10 MG tablet Indications: Cervicalgia , Disorder of bone and cartilage , Primary osteoarthritis of both hands , Bilateral hip pain , Chronic pain of left knee , Primary osteoarthritis of both feet , Fatigue, unspecified type , AKASH positive , 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) , [...] 1:00am Start: 02-28-2021 take 2 tablets by [facility] once daily as needed oxaprozin 600 MG tablet Indications: Cervicalgia , Disorder of bone and cartilage , Primary osteoarthritis of both hands , Bilateral hip pain , Chronic pain of left knee , Primary osteoarthritis of both feet , Fatigue, unspecified type , AKASH positive , 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 0 12/09/2020 02/28/2021 Discontinued oxymetazoline hydrochloride 0.5 mg/ml nasal spray (13 sources) Start: 11-11-2021 Oxymetazoline (12 Hour Nasal Relief [place]) 0.05 % spray,non-aerosol Active 1 NMA INTRANASAL [...] 1:00am November 10, 2020 1:02am oxyquinoline sulfate 0.52586 mg/mg / sodium dodecyl sulfate 0.0001 mg/mg [...] aftercare (20 sources) Patient encounter status; Translations: [buttermaker (current) use of non-steroidal anti-inflammatories (NSAID)] Onset: 1 Episodic Comment on above: On review of records from the [facility] and the [facility] no previous colonoscopies can be identified. I [...] Test Name Value Interpretation Reference Range Facility Motor Hotel Manager Office Visit Reporton 04-14-2025 Motor Hotel Manager Office Visit Report [facility] [address], [address] [place] [address] OFFICE VISIT Date of Service: 04/14/25 MR#: [id number] Acct: [id number] Name: PILAR PERSAUD Rep #: [id number] : 1955 Provider: DEBBIE basilio Age/Sex: 69/F Location: [facility] Status: Signed Intake Vital Signs 11/18/24 06:33 02/27/25 10:08 04/14/25 11:12 04/14/25 11:17 Height 5 ft 7 in 5 ft 7 in 5 ft 7 in 5 ft 7 in Weight: 186 lb 2 oz BMI 29.1 BP 142/78 H 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 Normal [facility] EGD Reporton 02-27-2025 EGD Report [facility] Medical Records Department [address] [place] [address] EGD Report MR#: [id number] Acct: [id number] Name: PILAR PERSAUD Rep #: [id number] : 1955 69 From: Vernon Canas MD PCP: Dr. Anastacio Lloyd MD Status:[facility] Patient Name: Pilar Persaud Procedure Date: 02/27/2025 [...] office PRN. 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 All rights reserved. The codes documented in this report are preliminary and upon human resource assistant review may be revised to meet current compliance requirements. Vernon Canas MD 02/27/2025 11:22:44 AM This report has been signed electronically. Number of Addenda: 0 Note Initiated On: 02/27/2025 10:47 AM 02/27/25 1122 Date Vernon Canas MD [facility] Signature: Date (if indicated) CC: Dr. Anastacio Lloyd MD; Dr. Vernon Canas MD Date Dictated: 02/27/251046 Date Transcribed: Collection Manager: KELLIE Signed [facility] Immunohistochemical Stainson 02-27-2025 Immunohistochemical Stains Patient Age/Sex Location Account Attending Physician PILAR PERSAUD 69/F EN [id number] Dr. Vernon Canas MD Specimen: [id number] Received: 02/27/25 Status: CHARITO Beck Num: [id number] Spec Type: EGD BIOPSY Subm Dr: Dr. [...] developed and their performance characteristics determined by [facility]. They may not have been cleared [...] in aggregate. Submitted in toto in B1. [facility] 02-27-2025 CPT:19436z2,68643 Patient Age/Sex Location Account Attending Physician PILAR PERSAUD 69/F EN [id number] Dr. Vernon Canas MD Signed (signature on file) Dr. Teresita Brock MD 03/09/25 0841 [facility] Comment on above: Performed By: #### L 501.0900 #### [facility] [address] [place], [address] MR/POSTOP.ANEon 02-27-2025 MR/POSTOP.ANE [facility] Medical Records Department [address] [place] [address] Anesthesia Postop Eval I 02/27/25 1116 MR#: [id number] Acct: [id number] Name: SHAWANDAEDWARDPILAR BEN Rep #: [id number] : 1955 69 From: Rios Campos PCP: Dr. Anastacio Lloyd MD Status:REG SDC Y Race: C Location: [place] [address] Anesthesia: Postop Eval I Current Vital Signs [...] Rios Rebollar Signature: Date CC: Signed Normal [facility] MR/[id number] 02-27-2025 MR/POSTOPAN2 [facility] Medical Records Department [address] [place] [address] Anesthesia Postop Eval II 02/27/25 1135 MR#: [id number] Acct: [id number] Name: SHAWANDAEDWARDPILAR BEN Rep #: [id number] : 1955 69 From: Rios Campos PCP: Dr. Anastacio Lloyd MD Status:REG SDC Y Race: C Location: [address] Anesthesia Postop Eval I Sum Postop Eval Completion status Anesthesia document: Postop Eval 1 completed: Yes Anesthesia Postop Eval I Summary Anesthesia Postop Eval I Summary: Anesthesia Postop Eval I: Assessment Summary Airway patent Yes 02/27/25 11:17 DENTAL PATIENT COORDINATOR.MDOT Spontaneous unlabored Yes 02/27/25 11:17 DENTAL PATIENT COORDINATOR.MDOT respirations Mental status Awake,Calm 02/27/25 11:17 DENTAL PATIENT COORDINATOR.MDOT nausea No 02/27/25 11:17 DENTAL PATIENT COORDINATOR.MDOT Vomiting No 02/27/25 11:17 DENTAL PATIENT COORDINATOR.MDOT Anesthesia Postop Eval I: Fluid Summary Crystalloid volume administer 500 02/27/25 11:17 DENTAL PATIENT COORDINATOR.MDOT (ml) Colloids volume administered ( ml) Blood Product volume administered (ml) Total IV fluid infused 500 02/27/25 11:17 DENTAL PATIENT COORDINATOR.MDOT Anesthesia Postop Eval I: Summary Notes Anesthesia Complication No 02/27/25 11:17 DENTAL PATIENT COORDINATOR.MDOT Anesthesia Complication Comment: Post-operative progress note Anesthesia: Postop Eval II Evaluation Mental status: Awake and Calm Pain Level: 0 nausea: No Vomiting: No Complications Anesthesia Complication: No 02/27/25 1135 Date Rios Rebollar Signature: Date CC: Signed Normal [facility] Surgery Visit Reporton 02-05 Surgery Visit Report [facility] [address] [place] [address] [address] [place], [place] [address] OFFICE VISIT Date of Service: 02/05/25 MR#: [id number] Acct: [id number] Name: PILAR PERSAUD Rep #: [id number] [...] DRY 02/05/25 History (12 Hour Nasal Relief [place]) NOSE aspirin 81 mg tablet 81 mg [...] denosumab 60 mg/mL subcutaneous 60 mg subcut [id number] 08/25/2401/27 History syringe (Prolia) Have you fallen [...] Yes ba (more content not included)... Normal [facility] Absolute lymphocyte countOrd ered By: Anastacio Lloyd on 01-14-2025 Lymphocytes Auto (Unsp spec) [#/Vol] 1.22 10*3/uL 0.83-4.51 [facility] Absolute neutrophil countOrd ered By: Anastacio Lloyd on 01-14-2025 Neutrophils (Bld) [#/Vol] 2.8 10*3/uL 2.0-7.7 [facility] Anion gap in Serum or Plasma Ordered By: Anastacio Lloyd on 01-14-2025 Anion gap [Moles/Vol] 12 mmol/L 5-15 [facility] Automated lymphocyte count a s percentage of total leukocytesOrdered By: Anastacio Lloyd on 01-14-2025 Lymphocytes/100 WBC Auto (Unsp spec) 25.0 % 19-41 [facility] BUN/creatinine ratioOrdered By: Anastacio Lloyd on 01-14-2025 Urea nitrogen/Creatinine [Mass ratio] 21.7 mg/mg High 10-20 [facility] Basophil percentageOrdered B y: Anastacio Lloyd on 01-14-2025 Basophils/100 WBC (Bld) 1.0 % 0-1 [facility] Bilirubin Test strip Ql (U)O rdered By: Anastacio Lloyd on 01-14-2025 Bilirubin Ql (U) Negative Negative [facility] Bilirubin, totalOrdered By: Anastacio Lloyd on 01-14-2025 Bilirubin [Mass/Vol] 0.30 mg/dL 0.00-1.30 [facility] CBC W/Diff, Automatedon 01-03 Absolute Lymph 1.22 X10 3/uL Normal 0.83-4.51 [facility] Comment on above: Order Comment: Order Date: 09/17/24Order Info: 0184-1 - CBCD Performed By: #### L 509.1000, L500.4100, L100.0100, L500.4050 ####[facility] [address] [place], [address] Absolute Neut 2.8 X10 3/uL Normal 2.0-7.7 [facility] Comment on above: Order Comment: Order Date: 09/17/24Order Info: 0184-1 - CBCD Performed By: #### L 509.1000, L500.4100, L100.0100, L500.4050 ####[facility] [address] [place], [address] Basophils/100 WBC (Bld) 1.0 % Normal 0-1 [facility] Comment on above: Order Comment: Order Date: 09/17/24Order Info: 0184-1 - CBCD Performed By: #### L 509.1000, L500.4100, L100.0100, L500.4050 ####[facility] [address] [place], [address] Eosinophils/100 WBC (Bld) 4.3 % Normal 0-5 [facility] Comment on above: Order Comment: Order Date: 09/17/24Order Info: 018- - CBCD Performed By: #### L 509.1000, L500.4100, L100.0100, L500.4050 ####[facility] [address] [place], [address] Erythrocyte distribution width (RBC) [Ratio] 12.8 % Normal 11.6-14.6 [facility] Comment on above: Order Comment: Order Date: 09/17/24Order Info: 0184-1 - CBCD Performed By: #### L 509.1000, L500.4100, L100.0100, L500.4050 ####[facility] [address] [place], [address] Hematocrit (Bld) [Volume fraction] 38.2 % Normal 37-47 [facility] Comment on above: Order Comment: Order Date: 09/17/24Order Info: 0184-1 - CBCD Performed By: #### L 509.1000, L500.4100, L100.0100, L500.4050 ####[facility] [address] [place], [address] Hemoglobin (Bld) [Mass/Vol] 12.1 g/dL Normal 12.0-15.0 [facility] Comment on above: Order Comment: Order Date: 09/17/24Order Info: 183- - CBCD Performed By: #### L 509.1000, L500.4100, L100.0100, L500.4050 ####[facility] [address] [place], [address] IG% 0.400 Normal 0.0-0.9 [facility] Comment on above: Order Comment: Order Date: 09/17/24Order Info: 183-11 - CBCD Result Comment: IG% - Immature Granulocytes (promyelocytes, myelocytes and metamyelocytes) > 1% indicates that a LEFT SHIFT is Present. Performed By: #### L 509.1000, L500.4100, L100.0100, L500.4050 ####[facility] [address] [place], [address] Lymphocytes/100 WBC (Bld) 25.0 % Normal 19-41 [facility] Comment on above: Order Comment: Order Date: 09/17/24Order Info: 018- - CBCD Performed By: #### L 509.1000, L500.4100, L100.0100, L500.4050 ####[facility] [address] [place], [address] MCH (RBC) [Entitic mass] 30.3 pg Normal 27.0-32.0 [facility] Comment on above: Order Comment: Order Date: 09/17/24Order Info: 018- - CBCD Performed By: #### L 509.1000, L500.4100, L100.0100, L500.4050 ####[facility] [address] [place], [address] MCHC (RBC) [Mass/Vol] 31.7 g/dL Low 32-36 [facility] Comment on above: Order Comment: Order Date: 09/17/24Order Info: 018-1 - CBCD Performed By: #### L 509.1000, L500.4100, L100.0100, L500.4050 ####[facility] [address] [place], [address] MCV (RBC) [Entitic vol] 95.7 fL Normal 81-99 [facility] Comment on above: Order Comment: Order Date: 09/17/24Order Info: 4-1 - CBCD Performed By: #### L 509.1000, L500.4100, L100.0100, L500.4050 ####[facility] [address] [place], [address] Monocytes/100 WBC (Bld) 11.7 % High 0-10 [facility] Comment on above: Order Comment: Order Date: 09/17/24Order Info: 018- - CBCD Performed By: #### L 509.1000, L500.4100, L100.0100, L500.4050 ####[facility] [address] [place], [address] Neutrophils/100 WBC (Bld) 57.6 % Normal 47-70 [facility] Comment on above: Order Comment: Order Date: 09/17/24Order Info: 0184-1 - CBCD Performed By: #### L 509.1000, L500.4100, L100.0100, L500.4050 ####[facility] [address] [place], [address] Nucleated RBC (Bld) [#/Vol] 0 10*3/uL Normal 0-5 [facility] Comment on above: Order Comment: Order Date: 09/17/24Order Info: 0184-1 - CBCD Performed By: #### L 509.1000, L500.4100, L100.0100, L500.4050 ####[facility] [address] [place], [address] Platelet mean volume (Bld) [Entitic vol] 9.5 fL Normal 6.2-12.0 [facility] Comment on above: Order Comment: Order Date: 09/17/24Order Info: 018- - CBCD Performed By: #### L 509.1000, L500.4100, L100.0100, L500.4050 ####[facility] [address] [place], [address] Platelets (Bld) [#/Vol] 299 10*3/uL Normal 150-450 [facility] Comment on above: Order Comment: Order Date: 09/17/24Order Info: 018- - CBCD Performed By: #### L 509.1000, L500.4100, L100.0100, L500.4050 ####[facility] [address] [place], [address] RBC (Bld) [#/Vol] 3.99 10*6/uL Low 4.2-5.4 [facility] Comment on above: Order Comment: Order Date: 09/17/24Order Info: 018- - CBCD Performed By: #### L 509.1000, L500.4100, L100.0100, L500.4050 ####[facility] [address] [place], [address] RDW SD 45.4 fl High 35.1-43.9 [facility] Comment on above: Order Comment: Order Date: 09/17/24Order Info: 018- - CBCD Performed By: #### L 509.1000, L500.4100, L100.0100, L500.4050 ####[facility] [address] [place], [address] WBC (Bld) [#/Vol] 4.9 10*3/uL Normal 4.4-11.0 [facility] Comment on above: Order Comment: Order Date: 09/17/24Order Info: 0184-1 - CBCD Performed By: #### L 509.1000, L500.4100, L100.0100, L500.4050 ####[facility] [address] [place], [place], [address] Calculated very low density lipoprotein (VLDL) cholesterol measurementOrdered By: Anastacio Lloyd on 01-14-2025 Calculated very low density lipoprotein (VLDL) cholesterol measurement 19 mg/dL [facility] VLDL Cholesterol 19 mg/dL [facility] Carbon dioxide, total [Moles /volume] in Central venous bloodOrdered By: Anastacio Lloyd on 01-14-2025 CO2 [Moles/Vol] 24.6 mmol/L 21.0-32.0 [facility] Chloride assayOrdered By: Nicky Lloyd on 01-14-2025 Chloride [Moles/Vol] 104 mmol/L 98-108 [facility] Comprehensive Metabolic Prof ilon 01-14-2025 Albumin [Mass/Vol] 4.3 g/dL Normal 3.4-4.8 [facility] Comment on above: Order Comment: Order Date: 09/17/24Order Info: [id number] - CMPOrder Info: [id number] - LIPID Performed By: #### L 509.1000, L500.4100, L100.0100, L500.4050 ####[facility] [address] [place], [place], [address] Albumin/Globulin [Mass ratio] 1.5 {ratio} Normal 0.9-2.4 [facility] Comment on above: Order Comment: Order Date: 09/17/24Order Info: [id number] - CMPOrder Info: [id number] - LIPID Performed By: #### L 509.1000, L500.4100, L100.0100, L500.4050 ####[facility] [address] [place], [address] ALK PHOS 87 U/L Normal 35-104 [facility] Comment on above: Order Comment: Order Date: 09/17/24Order Info: 785- - CMPOrder Info: [id number] - LIPID Performed By: #### L 509.1000, L500.4100, L100.0100, L500.4050 ####[facility] [address] [place], [address] ALT [Catalytic activity/Vol] 35 U/L Normal <=34 [facility] Comment on above: Order Comment: Order Date: 09/17/24Order Info: 785- - CMPOrder Info: [id number] - LIPID Performed By: #### L 509.1000, L500.4100, L100.0100, L500.4050 ####[facility] [address] [place], [address] AST [Catalytic activity/Vol] 34 U/L High <=31 [facility] Comment on above: Order Comment: Order Date: 09/17/24Order Info: 07 - CMPOrder Info: [id number] - LIPID Performed By: #### L 509.1000, L500.4100, L100.0100, L500.4050 ####[facility] [address] [place], [address] Bilirubin [Mass/Vol] 0.30 mg/dL Normal 0.00-1.30 [facility] Comment on above: Order Comment: Order Date: 09/17/24Order Info: 0786- - CMPOrder Info: [id number] - LIPID Performed By: #### L 509.1000, L500.4100, L100.0100, L500.4050 ####[facility] [address] [place], [address] BUN/CRE 21.7 RATIO High 10-20 [facility] Comment on above: Order Comment: Order Date: 09/17/24Order Info: 07-1 - CMPOrder Info: [id number] - LIPID Performed By: #### L 509.1000, L500.4100, L100.0100, L500.4050 ####[facility] [address] [place], [address] Calcium [Mass/Vol] 10.3 mg/dL Normal 7.6-11.0 [facility] Comment on above: Order Comment: Order Date: 09/17/24Order Info: [id number] - CMPOrder Info: [id number] - LIPID Performed By: #### L 509.1000, L500.4100, L100.0100, L500.4050 ####[facility] [address] [place], [address] Chloride [Moles/Vol] 104 mmol/L Normal 98-108 [facility] Comment on above: Order Comment: Order Date: 09/17/24Order Info: 0786- - CMPOrder Info: [id number] - LIPID Performed By: #### L 509.1000, L500.4100, L100.0100, L500.4050 ####[facility] [address] [place], [address] CO2 [Moles/Vol] 24.6 mmol/L Normal 21.0-32.0 [facility] Comment on above: Order Comment: Order Date: 09/17/24Order Info: 0786- - CMPOrder Info: [id number] - LIPID Performed By: #### L 509.1000, L500.4100, L100.0100, L500.4050 ####[facility] [address] [place], [address] Creatinine [Mass/Vol] 1.21 mg/dL High 0.70-1.20 [facility] Comment on above: Order Comment: Order Date: 09/17/24Order Info: [id number] - CMPOrder Info: [id number] - LIPID Performed By: #### L 509.1000, L500.4100, L100.0100, L500.4050 ####[facility] [address] [place], [place], GAP 12 Normal 5-15 [facility] Comment on above: Order Comment: Order Date: 09/17/24Order Info: 07- - CMPOrder Info: [id number] - LIPID Performed By: #### L 509.1000, L500.4100, L100.0100, L500.4050 ####[facility] [address] [place], [address] GFR/1.73 sq M.predicted among non-blacks MDRD (S/P/Bld) [Vol rate/Area] 49 mL/min/{1.73_m2} Low >60 [facility] Comment on above: Order Comment: Order Date: 09/17/24Order Info: 785-11 - CMPOrder Info: [id number] - LIPID Result Comment: mL/m in/1.73m2 CKD-EPI Creatinine Equation (2020) Performed By: #### L 509.1000, L500.4100, L100.0100, L500.4050 ####[facility] [address] [place], [address] Globulin (S) [Mass/Vol] 2.9 g/dL Normal 2.2-4.2 [facility] Comment on above: Order Comment: Order Date: 09/17/24Order Info: 0786 - CMPOrder Info: [id number] - LIPID Performed By: #### L 509.1000, L500.4100, L100.0100, L500.4050 ####[facility] [address] [place], [address] Glucose [Mass/Vol] 82 mg/dL Normal 70-99 [facility] Comment on above: Order Comment: Order Date: 09/17/24Order Info: 0786- - CMPOrder Info: [id number] - LIPID Performed By: #### L 509.1000, L500.4100, L100.0100, L500.4050 ####[facility] [address] [place], [address] Potassium [Moles/Vol] 4.6 mmol/L Normal 3.3-5.1 [facility] Comment on above: Order Comment: Order Date: 09/17/24Order Info: [id number] - CMPOrder Info: [id number] - LIPID Performed By: #### L 509.1000, L500.4100, L100.0100, L500.4050 ####[facility] [address] [place], [address] Sodium [Moles/Vol] 141 mmol/L Normal 133-145 [facility] Comment on above: Order Comment: Order Date: 09/17/24Order Info: [id number] - CMPOrder Info: [id number] - LIPID Performed By: #### L 509.1000, L500.4100, L100.0100, L500.4050 ####[facility] [address] [place], [address] T PROT 7.3 g/dL Normal 5.9-8.4 [facility] Comment on above: Order Comment: Order Date: 09/17/24Order Info: [id number] - CMPOrder Info: [id number] - LIPID Performed By: #### L 509.1000, L500.4100, L100.0100, L500.4050 ####[facility] [address] [place], [address] Urea nitrogen [Mass/Vol] 26 mg/dL High 4-19 [facility] Comment on above: Order Comment: Order Date: 09/17/24Order Info: 07 - CMPOrder Info: [id number] - LIPID Performed By: #### L 509.1000, L500.4100, L100.0100, L500.4050 ####[facility] [address] [place], [address] Creatinine Unsp time (U) [Ma ss/Vol]Ordered By: Anastacio Lloyd on 01-14-2025 Creatinine (U) [Mass/Vol] 42.40 mg/dL 28-217 [facility] Eosinophil percentageOrdered By: Anastacio Lloyd on 01-14-2025 Eosinophils/100 WBC (Bld) 4.3 % 0-5 [facility] Epithelial cells.squamous LM Ql (Urine sed)Ordered By: Anastacio Lloyd on 01-14-2025 Epithelial cells.squamous LM.HPF (Urine sed) [#/Area] 0 /[HPF] 5-10 [facility] Erythrocyte distribution wid th ratioOrdered By: Anastacio Lloyd on 01-14-2025 Erythrocyte distribution width (RBC) [Ratio] 12.8 % 11.6-14.6 [facility] Erythrocyte distribution wid th standard deviationOrdered By: Anastacio Lloyd on 01-14-2025 Erythrocyte distribution width (RBC) [Entitic vol] 45.4 fL High 35.1-43.9 [facility] Erythrocyte distribution width (RBC) [Ratio] 45.4 fl High 35.1-43.9 [facility] GFR/1.73 sq M.predicted lexa g non-blacks MDRD (S/P/Bld) [Vol rate/Area]Ordered By: Anastacio Lloyd on 01-14-2025 Estimated GFR (MDRD) Non-Af Amer 49 Low >60 [facility] Comment on above: mL/min/1.73m2 CKD-EP I Creatinine Equation (2020) Glomerular filtration rate ( GFR) estimation/1.73 sq m using serum, plasma, or whole bOrdered By: Anastacio Lloyd on 01-14-2025 GFR/1.73 sq M.predicted among non-blacks MDRD (S/P/Bld) [Vol rate/Area] 49 mL/min/{1.73_m2} Low >60 [facility] Comment on above: mL/min/1.73m2 CKD-EP I Creatinine Equation (2020) Glucose Ql (U)Ordered By: Nicky Lloyd on 01-14-2025 Urine Glucose (UA) Normal mg/dl Normal [facility] Hematocrit Auto (Bld) [Volum e fraction]Ordered By: Anastacio Lloyd on 01-14-2025 Hematocrit (Bld) [Volume fraction] 38.2 % 37-47 [facility] Hemoglobin measurementOrdere d By: Anastacio Lloyd on 01-14-2025 Hemoglobin (Bld) [Mass/Vol] 12.1 g/dL 12.0-15.0 [facility] Immature granulocytes/100 WB C Auto (Bld)Ordered By: Anastacio Lloyd on 01-14-2025 Immature granulocytes/100 WBC (Bld) 0.400 % 0.0-0.9 [facility] Comment on above: IG% - Immature Granu locytes (promyelocytes, myelocytes and metamyelocytes) > 1% indicates that a LEFT SHIFT is Present. Ketones Test strip Ql (U)Ord ered By: Anastacio Lloyd on 01-14-2025 Ketones Ql (U) Negative Negative [facility] L506.1001on 01-14-2025 Vitamin D 25-OH 66.2 ng/mL Normal 30-100 [facility] Comment on above: Order Comment: Order Date: 05/27/24 Order Info: [id number] - PTHIN Result Comment: Nona min D Status Deficiency: <20 ng/mL (50nmol/L) Insufficiency: 20-30 ng/mL (50-75 nmol/L) Sufficiency: 30-100 ng/mL (75-250 nmol/L) Toxicity: >100 ng/mL (>250 nmol/L) Performed By: #### L 500.4100, L506.1000, L100.0100, L509.1000, L500.4050 #### [facility] Laboratory [address] [place] [address], [id number] LDL calc ser/plasOrdered By: Anastacio Lloyd on 01-14-2025 Cholesterol in LDL [Mass/Vol] 62 mg/dL [facility] Comment on above: Yxtyqcnwmc=638-507 m g/dL & Higher Mtiu=688 mg/dL or greater LDL Cholesterol, Calculated 62 mg/dL [facility] Comment on above: Myuzdtabju=776-506 m g/dL & Higher Qfjr=006 mg/dL or greater Laboratory - Chemistry and C hemistry - challengeOrdered By: Anastacio Lloyd on 01-14-2025 AST [Catalytic activity/Vol] 34 U/L High <32 [facility] Lipid Profileon 01-14-2025 CHOL:HDL 2.58 Normal [facility] Comment on above: Order Comment: Order Date: 09/17/24Order Info: [id number]- - CMPOrder Info: [id number] - LIPID Performed By: #### L 509.1000, L500.4100, L100.0100, L500.4050 ####[facility] [address] [place], [address] Cholesterol [Mass/Vol] 133 mg/dL Normal <=200 [facility] Comment on above: Order Comment: Order Date: 09/17/24Order Info: 07 - CMPOrder Info: [id number] - LIPID Result Comment: Chol esterol level, Desirable <200 mg/dL Borderline high cholesterol 200-239 mg/dL High cholesterol >=240 mg/dL Recommendations of the NCEP Adult Treatment Panel for the following risk-cutoff thresholds for the [place] population. Performed By: #### L 509.1000, L500.4100, L100.0100, L500.4050 ####[facility] [address] [place], [address] Cholesterol in HDL [Mass/Vol] 52 mg/dL Normal [facility] Comment on above: Order Comment: Order Date: 09/17/24Order Info: 0786 - CMPOrder Info: [id number] - LIPID Result Comment: Michell onal Cholesterol Education Program (NCEP) guidelines: <40 mg/dL: Low HDL-cholesterol (major risk factor for CHD) >= 60 mg/dL: High HDL-cholesterol (negative risk factor for CHD) HDL-cholesterol is affected by a number of factors, e.g. smoking, exercise, hormones, sex and age. Performed By: #### L 509.1000, L500.4100, L100.0100, L500.4050 ####[facility] [address] [place], [address] Cholesterol in LDL [Mass/Vol] 62 mg/dL Normal [facility] Comment on above: Order Comment: Order Date: 09/17/24Order Info: [id number] - CMPOrder Info: [id number] - LIPID Result Comment: Bord nkjwyn=402-123 mg/dL Higher Cfih=354 mg/dL or greater Performed By: #### L 509.1000, L500.4100, L100.0100, L500.4050 ####[facility] [address] [place], [address] Cholesterol in VLDL [Mass/Vol] 19 mg/dL Normal 5-40 [facility] Comment on above: Order Comment: Order Date: 09/17/24Order Info: [id number] - CMPOrder Info: [id number] - LIPID Performed By: #### L 509.1000, L500.4100, L100.0100, L500.4050 ####[facility] [address] [place], [address] Triglyceride [Mass/Vol] 97 mg/dL Normal [facility] Comment on above: Order Comment: Order Date: 09/17/24Order Info: [id number] - CMPOrder Info: [id number] - LIPID Result Comment: The drugs N-Acetylcysteine and Metamizole may falsely depress this assay. Normal range: <150 mg/dL Borderline High: 150-199 mg/dL High: 200-499 mg/dL Very High: >500 mg/dL Performed By: #### L 509.1000, L500.4100, L100.0100, L500.4050 ####[facility] [address] [place], [address] Lymphocytes Auto (Unsp spec) [#/Vol]Ordered By: Anastacio Lloyd on 01-14-2025 Lymphocytes (Bld) [#/Vol] 1.22 10*3/uL 0.83-4.51 [facility] Lymphocytes/100 WBC Auto (Un sp spec)Ordered By: Anastacio Lloyd on 01-14-2025 Lymphocytes/100 WBC (Bld) 25.0 % 19-41 [facility] MCV (mean corpuscular volume ) determinationOrdered By: Anastacio Lloyd on 01-14-2025 MCV (RBC) [Entitic vol] 95.7 fL 81-99 [facility] Mean corpuscular hemoglobin (MCH) determinationOrdered By: Anastacio Lloyd on 01-14-2025 MCH (RBC) [Entitic mass] 30.3 pg 27.0-32.0 [facility] Mean corpuscular hemoglobin concentration (MCHC) determinationOrdered By: Anastacio Lloyd on 01-14-2025 MCHC (RBC) [Mass/Vol] 31.7 g/dL Low 32-36 [facility] Mean platelet volume determi nationOrdered By: Anastacio Lloyd on 01-14-2025 Platelet mean volume (Bld) [Entitic vol] 9.5 fL 6.2-12.0 [facility] Microscopic analysis of urin e for red blood cells (RBC)Ordered By: Anastacio Lloyd on 01-14-2025 Microscopic analysis of urine for red blood cells (RBC) 0 SEEN /hpf 0-5 [facility] Urine RBC 0 SEEN /hpf 0-5 [facility] Monocyte percentageOrdered B y: Anastacio Lloyd on 01-14-2025 Monocytes/100 WBC (Bld) 11.7 % High 0-10 [facility] Mucus LM Ql (Urine sed)Order ed By: Anastacio Lloyd on 01-14-2025 Mucus Ql (Urine sed) 0 SEEN /hpf [facility] Neutrophil percentageOrdered By: Anastacio Lloyd on 01-14-2025 Neutrophils/100 WBC (Bld) 57.6 % 47-70 [facility] Nitrite Test strip Ql (U)Ord ered By: Anastacio Lloyd on 01-14-2025 Nitrite Ql (U) Positive High Negative [facility] Nucleated red blood cell per centageOrdered By: Anastacio Lloyd on 01-14-2025 Nucleated RBC/100 WBC (Bld) [Ratio] 0 % 0- [facility] PTH intactOrdered By: Anastacio ribera on 01-14-2025 Parathyroid Hormone (Intact) 31 pg/mL [facility] PTHINon 01-14-2025 PTH 31 pg/mL Normal [facility] Comment on above: Order Comment: Order Date: 09/17/24Order Info: [id number] - PTHIN Performed By: #### L 509.1000, L500.4100, L100.0100, L500.4050 ####[facility] [address] [place], [address] Platelet countOrdered By: Nicky Lloyd on 01-14-2025 Platelets (Bld) [#/Vol] 299 10*3/uL 150-450 [facility] Potassium (Unsp spec) [Mass/ Vol]Ordered By: Anastacio Lloyd on 01-14-2025 Potassium [Moles/Vol] 4.6 mmol/L 3.3-5.1 [facility] Potassium measurement (mass/ volume)Ordered By: Anastacio Lloyd on 01-14-2025 Potassium (Unsp spec) [Mass/Vol] 4.6 mmol/L 3.3-5.1 [facility] Protein Test strip Ql (U)Ord ered By: Anastacio Lloyd on 01-14-2025 Protein Ql (U) Negative Negative [facility] Protein+Creatinine Ratio,Uri neon 01-14-2025 PROT:CRE RATIO 278 mg/g CRE High 0-200 [facility] Comment on above: Performed By: #### L 501.0900, L400.0001 ####[facility] [address] [place], [address] Protein (U) [Mass/Vol] 11.8 mg/dL Normal 0.0-12.0 [facility] Comment on above: Performed By: #### L 501.0900, L400.0001 ####[facility] [address] [place], [address] UR CREAT 42.40 mg/dL Normal 28-217 [facility] Comment on above: Performed By: #### L 501.0900, L400.0001 ####[facility] [address] [place], [address] Protein/Creatinine (U) [Mass ratio]Ordered By: Anastacio Lloyd on 01-14-2025 Urine Protein/Creatinine Ratio 278 mg/g CRE High 0-200 [facility] RBC Auto (Bld) [#/Vol]Ordere d By: Anastacio Lloyd on 01-14-2025 RBC (Bld) [#/Vol] 3.99 10*6/uL Low 4.2-5.4 [facility] Random urine creatinine filomena urement (mass/volume)Ordered By: Anastacio Lloyd on 01-14-2025 Creatinine Unsp time (U) [Mass/Vol] 42.40 mg/dL 28-217 [facility] Screening total cholesterol/ high density lipoprotein (HDL) cholesterol ratioOrdered By: Anastacio Llody on 01-14-2025 Cholesterol.total/Chol esterol in HDL [Mass ratio] 2.58 {ratio} [facility] Serum creatinine measurement (mass/volume)Ordered By: Anastacio Lloyd on 01-14-2025 Creatinine [Mass/Vol] 1.21 mg/dL High 0.70-1.20 [facility] Serum globulin measurementOr dered By: Anastacio Lloyd on 01-14-2025 Globulin (S) [Mass/Vol] 2.9 g/dL 2.2-4.2 [facility] Serum glucose measurement (m ass/volume)Ordered By: Anastacio Lloyd on 01-14-2025 Glucose [Mass/Vol] 82 mg/dL 70-99 [facility] Serum or plasma alanine purcell otransferase (ALT) measurementOrdered By: Anastacio Lloyd on 01-14-2025 ALT [Catalytic activity/Vol] 35 U/L <35 [facility] Serum or plasma albumin filomena urement (mass/volume)Ordered By: Anastacio Lloyd on 01-14-2025 Albumin [Mass/Vol] 4.3 g/dL 3.4-4.8 [facility] Serum or plasma albumin/glob ulin mass ratioOrdered By: Anastacio Lloyd on 01-14-2025 Albumin/Globulin [Mass ratio] 1.5 {ratio} 0.9-2.4 [facility] Serum or plasma alkaline bienvenido sphatase measurementOrdered By: Anastacio Lloyd on 01-14-2025 ALP [Catalytic activity/Vol] 87 U/L 35-104 [facility] Serum or plasma calcium filomena urement (mass/volume)Ordered By: Anastacio Lloyd on 01-14-2025 Calcium [Mass/Vol] 10.3 mg/dL 7.6-11.0 [facility] Serum or plasma cholesterol in HDL measurement (mass/volume)Ordered By: Anastacio Lloyd on 01-14-2025 Cholesterol in HDL [Mass/Vol] 52 mg/dL >40 [facility] Comment on above: National Cholesterol Education Program (NCEP) guidelines:<40 mg/dL: Low HDL-cholesterol (major risk factor for CHD)>= 60 mg/dL: High HDL-cholesterol (negative risk factor for CHD)HDL-cholesterol is affected by a number of factors, e.g. smoking, exercise, hormones, sex and age. Serum or plasma cholesterol measurement (mass/volume)Ordered By: Anatsacio Lloyd on 01-14-2025 Cholesterol [Mass/Vol] 133 mg/dL <201 [facility] Comment on above: Cholesterol level, D esirable <200 mg/dLBorderline high cholesterol 200-239 mg/dLHigh cholesterol >=240 mg/dLRecommendations of the NCEP Adult Treatment Panel for the following risk-cutoff thresholds for the [place] population. Serum or plasma urea nitroge n measurement (mass/volume)Ordered By: Anastacio Lloyd on 01-14-2025 Urea nitrogen [Mass/Vol] 26 mg/dL High 4-19 [facility] Sodium levelOrdered By: Anastacio Lloyd on 01-14-2025 Sodium [Moles/Vol] 141 mmol/L 133-145 [facility] Squamous epithelial cells de tection in urine sediment by light microscopyOrdered By: Anastacio Lloyd on 01-14-2025 Epithelial cells.squamous LM Ql (Urine sed) 0-5 SEEN /hpf 5-10 [facility] Total proteinOrdered By: Warner Lloyd on 01-14-2025 Protein [Mass/Vol] 7.3 g/dL 5.9-8.4 [facility] Triglycerides measurementOrd ered By: Anastacio Lloyd on 01-14-2025 Triglyceride [Mass/Vol] 97 mg/dL <199 [facility] Comment on above: The drugs N-Acetylcy steine and Metamizole may falsely depress this assay. Normal range: <150 mg/dLBorderline High: 150-199 mg/dLHigh: 200-499 mg/dLVery High: >500 mg/dL Urinalysis, Completeon 01-14 BACTERIA 3+ /hpf Normal None Seen [facility] Comment on above: Order Comment: CLEAN CATCH Performed By: #### L 501.0900, L400.0001 ####[facility] [address] [place], [address] EPI,SQUAMOUS 0-5 SEEN Normal 5-10 [facility] Comment on above: Order Comment: CLEAN CATCH Performed By: #### L 501.0900, L400.0001 ####[facility] [address] [place], [address] RBC 0 SEEN Normal 0-5 [facility] Comment on above: Order Comment: CLEAN CATCH Performed By: #### L 501.0900, L400.0001 ####[facility] [address] [place], [address] WBC 0-5 SEEN Normal 0-5 [facility] Comment on above: Order Comment: CLEAN CATCH Performed By: #### L 501.0900, L400.0001 ####[facility] [address] [place], [address] Mucus Ql (Urine sed) 0 SEEN Normal [facility] Comment on above: Order Comment: CLEAN CATCH Performed By: #### L 501.0900, L400.0001 ####[facility] [address] [place], [address] Urine blood detectionOrdered By: Anastacio Lloyd on 01-14-2025 Urine Occult Blood 25 /ul High Negative [facility] Urine clarityOrdered By: Warner Lloyd on 01-14-2025 Clarity (U) Sl. Cloudy Clear [facility] Urine color determinationOrd ered By: Anastacio Lloyd on 01-14-2025 Color (U) Yellow Yellow [facility] Urine glucose detectionOrder ed By: Anastacio Lloyd on 01-14-2025 Glucose Ql (U) Normal mg/dl Normal [facility] Urine leukocyte esterase det ection by dipstickOrdered By: Anastacio Lloyd on 01-14-2025 Leukocyte esterase Test strip Ql (U) 100 /ul High Negative [facility] Urine pHOrdered By: Aanstacio ayala on 01-14-2025 pH (U) 5.0 [pH] 5.0 - 8.0 [facility] Urine protein measurement (m ass/volume)Ordered By: Anastacio Lloyd on 01-14-2025 Protein (U) [Mass/Vol] 11.8 mg/dL 0.0-12.0 [facility] Urine protein/creatinine mas s ratioOrdered By: Anastacio Lloyd on 01-14-2025 Protein/Creatinine (U) [Mass ratio] 278 mg/g CRE High 0-200 [facility] Urine sediment bacteria coun t by microscopy (number/high power field)Ordered By: Anastacio Lloyd on 01-14-2025 Bacteria LM.HPF (Urine sed) [#/Area] 3 /[HPF] None Seen [facility] Urine specific gravity measu rementOrdered By: Anastacio Lloyd on 01-14-2025 Specific gravity (U) [Rel density] 1.020 1.002-1.030 [facility] Urine urobilinogen measureme ntOrdered By: Anastacio Lloyd on 01-14-2025 Urobilinogen Ql (U) Normal mg/dl Normal [facility] Urobilinogen Ql (U)Ordered B y: Anastacio Lloyd on 01-14-2025 Urine Urobilinogen Normal mg/dl Normal [facility] Vitamin D, 25-hydroxyOrdered By: Anastacio Lloyd on 01-14-2025 Vitamin D 25-Hydroxy 66.2 ng/mL 30-100 [facility] Comment on above: Vitamin D StatusDefi ciency: <20 ng/mL (50nmol/L)Insufficiency: 20-30 ng/mL (50-75 nmol/L)Sufficiency: 30-100 ng/mL (75-250 nmol/L)Toxicity: >100 ng/mL (>250 nmol/L) White blood cell (WBC) count Ordered By: Anastacio Lloyd on 01-14-2025 WBC (Bld) [#/Vol] 4.9 10*3/uL 4.4-11.0 [facility] White blood cell countOrdere d By: Anastacio Lloyd on 01-14-2025 Urine WBC 0-5 SEEN /hpf 0-5 [facility] White blood cell count 0-5 SEEN /hpf 0-5 [facility] HIP, UNI W/ Pelvis 2-3 Views on 12-29-2024 HIP, UNI W/ Pelvis 2-3 Views [facility] [address] [place], [place] [address] HIP, UNI W/ Pelvis 2-3 Views MR#: [id number] Acct: [id number] Name: PILAR PERSAUD Rep #: [id number] : 1955 F 69 From: Minor Perez MD PCP: Dr. Anastacio Lloyd MD Status: DEP AMB Study: HIP, UNI W/ Pelvis 2-3 Views Date of Exam: Exam# [id number] Ordering Dr: Yadiel Quinn DO EXAM: XR [...] hip replacement in anatomic position. [facility] CC: Dr. Anastacio Lloyd MD; Dr. Yadiel Quinn DO Collection Manager: Signed Normal [facility] Orthopedic Visit Reporton Orthopedic Visit Report [facility] [address] [place] [address] [address] [place] [address] OFFICE VISIT Date of Service: 12/29/24 MR#: [id number] Acct: [id number] Name: PILAR PERSAUD Rep #: [id number] : 1955 Provider: Dr. Yadiel sykes DO Age/Sex: 69/F Location: [facility] Status: Signed Intake Vital Signs 08/13/24 10:50 [...] DRY 12/29/24 History (12 Hour Nasal Relief [place]) NOSE aspirin 81 mg tablet 81 mg [...] denosumab 60 mg/mL subcutaneous 60 mg subcut [id number] 08/25/24 History syringe (Prolia) acetaminophen 500 mg [...] Info 12/07 (more content not included)... Normal [facility] PT D/C Summary (1)on 025 PT D/C Summary (1) [facility] [address] [place] [address] / REHABILITATION SERVICES DISCHARGE SUMMARY MR#: [id number] Acct: [id number] Name: PILAR PERSAUD Rep #: [id number] : 1955 69 From: Magdi Chance PT, [...] please feel free to call me at [phone]. Thank you for the referral of this patient. Sincerely, Magdi Chance, PT, Cert MDT, OCS Balance/Gait/Functional tests Balance/Special Test Scores Lower Extremity Functional Score: 48 TUG Test Time Seconds: 12.7 Tug Test: <20 sec.=mostly independent WOMAC Total Score: 77 WOMAC Percentage: 16.3100 Improvement % Improvement: 95 12/18/24 1459 CC: Dr. Anastacio Lloyd MD; Dr. Yadiel Quinn DO JLJaswinder Signed Normal [facility] Orthopedic Visit Reporton Orthopedic Visit Report [facility] [address] [place] [address] OFFICE VISIT Date of Service: 12/01/24 MR#: [id number] Acct: [id number] Name: PILAR PERSAUD Rep #: [id number] : 1955 Provider: Dr. Yadiel sykes DO Age/Sex: 69/F Location: [facility] Status: Signed Intake Vital Signs 08/13/24 10:50 [...] 11/11/21 12/01/24 History (12 Hour Nasal Relief [place]) NOSE aspirin 81 mg tablet 81 mg [...] denosumab 60 mg/mL subcutaneous 60 mg subcut [id number] 08/25/24 12/01/24 History syringe (Prolia) acetaminophen 500 [...] also L3- (more content not included)... Normal [facility] Inital Evaluation (1) - PTon 11-21-2024 Inital Evaluation (1) - PT [facility] Physical Therapy [facility] [address] [place] [address] / REHABILITATION SERVICES INITIAL EVALUATION MR#: [id number] Acct: [id number] Name: PILAR PERSAUD Rep #: [id number] : 1955 69 From: Magdi Chance PT, [...] ROBERT on 11/18/[address] Quinn at [facility] . Patient was d/c to 11/18 with [...] to be FAXED BACK to us at [phone] for Medicare purposes. For Medicare only, by signing this I certify the plan of care. Please let me know if there are questions or concerns re (more content not included)... Normal [facility] MR/[id number] 11-19-2024 MR/POSTOPAN2 [facility] Medical Records Department [address] [place] [address] Anesthesia Postop Eval II 11/19/24 0708 MR#: [id number] Acct: [id number] Name: PILAR PERSAUD Rep #: [id number] : 1955 69 From: George Haskins MD PCP: Dr. Anastacio Lloyd MD Status:[facility] Y Race: C Location: [facility] Anesthesia Postop Eval I Sum Postop Eval Completion status Anesthesia document: Postop Eval 1 completed: Yes Anesthesia Postop Eval I Summary Anesthesia Postop Eval I Summary: Anesthesia Postop Eval I: Assessment Summary Airway patent Yes 11/18/24 10:16 DENTAL PATIENT COORDINATOR.JCLI Spontaneous unlabored Yes 11/18/24 10:16 DENTAL PATIENT COORDINATOR.JCLI respirations Mental status Asleep 11/18/24 10:16 DENTAL PATIENT COORDINATOR.JCLI nausea No 11/18/24 10:16 DENTAL PATIENT COORDINATOR.JCLI Vomiting No 11/18/24 10:16 DENTAL PATIENT COORDINATOR.JCLI Anesthesia Postop Eval I: Fluid Summary Crystalloid volume administer 2,000 11/18/24 10:16 DENTAL PATIENT COORDINATOR.JCLI (ml) Colloids volume administered ( ml) Blood Product volume administered (ml) Total IV fluid infused 2,000 11/18/24 10:16 DENTAL PATIENT COORDINATOR.JCLI Anesthesia Postop Eval I: Summary Notes Anesthesia Complication No 11/18/24 10:16 DENTAL PATIENT COORDINATOR.JCLI Anesthesia Complication Comment: Post-operative progress note Anesthesia: Postop Eval II Evaluation Mental status: Awake and Calm Pain Level: 1 nausea: No Vomiting: No Complications Anesthesia Complication: No 11/19/24 0709 Date George Rebollar Signature: Date CC: Signed Normal [facility] Bedside Glucoseon 11-18-2024 FINGERSTICK GLU 67 mg/dL Low 74-106 [facility] Comment on above: Result Comment: JOSE A HOLLY OF PATIENT CARE PER NURSING PROTOCOL Performed By: #### L 501.080 #### [facility] Laboratory [address] [place], [address] Decalcification bone/plaqueo n 11-18-2024 Decalcification bone/plaque Patient Age/Sex Location Account Attending Physician PILAR PERSAUD 69/F [facility] [id number] Dr. Yadiel Quinn, DO Specimen: [id number] Received: 11/18/24 Status: CHARITO Beck Num: [id number] Spec Type: FEM HEAD Subm Dr: Dr. [...] the femoral head measuring 2.0 x 2.0cm. Blood Donor Recruiter sections are submitted in three cassettes as follows: 1 - soft tissue, entirely submitted, 2 3- femoral head after decalcification. / MISA. 11/18/2024 TC:5 CPT: 08483, 75937 Patient Age/Sex Location Account Attending Physician PILAR PERSAUD 69/F [facility] [id number] Dr. Yadiel Quinn, DO Signed (signature on file) Dr. Epifanio Bennett MD 11/21/24 1440 Normal [facility] Comment on above: Performed By: #### L 500.4100, L506.1000, L100.0100, L509.1000, L500.4050 #### [facility] Laboratory [facility] [place] [address] [place], [address] Discharge Instructionon 11-05 Discharge Instruction [facility] Medical Records Department [address] [place] [address] Instructions for Home/Discharge Instructions 11/18/24 1331 MR#: [id number] Acct: [id number] Name: PILAR PERSAUD Rep #: [id number] : 1955 69 From: Yaidel Quinn DO PCP: Dr. Anastacio Lloyd MD Status:REG [facility] Discharge Instructions Diet Discharge Diet: No restrictions [...] Care Provider: Anastacio Lloyd Instructions Print Language: Comoran Discharge Orders/Prescriptions Prescriptions: New acetaminophen 500 mg [...] PO HS oxymetazoline [12 Hour Nasal Relief [place]] 0.05 % spray,non-aerosol 1 spray intranasal ONCE [...] Prolia 60 mg/mL syringe 60 mg subcut [id number] atorvastatin 40 mg tablet 40 mg PO [...] CC: Dr. Anastacio Lloyd MD Signed Normal [facility] deOrdered By: Yadiel Quinn on 11-18-2024 Bedside Glucose (Misc Panel) 67 mg/dL Low 74-106 [facility] Comment on above: MANAGEMENT OF PATIEN T CARE PER NURSING PROTOCOL Hip Min 2 Views (Portable)on 11-18-2024 Hip Min 2 Views (Portable) [facility] Imaging Services [address] [place] [address] Hip Min 2 Views (Portable) MR#: [id number] Acct: [id number] Name: SHAWANDAPILAR CONTRERAS Rep #: [id number] : 1955 F 69 From: Alen Fermin MD PCP: Dr. Anastacio Lloyd MD Status: [facility] Study: Hip Min 2 Views (Portable) Date of Exam: 11/18 Exam# [id number] Ordering Dr: Yadiel Quinn DO [id number] EXAM: XR LEFT HIP WITH PELVIS WHEN [...] Anastacio Lloyd MD; Dr. Yadiel Quinn DO Collection Manager: Signed [facility] MR/POSTOP.[facility] 11-18-2024 MR/POSTOP.[facility] Medical Records Department [address] [place] [address] Anesthesia Postop Eval I 11/18/24 1015 MR#: [id number] Acct: [id number] Name: PILAR PERSAUD Rep #: [id number] : 1955 69 From: Rene Goldsmith CRNA PCP: Dr. Anastacio Lloyd MD Status:REG [facility] Y Race: C Location: [place] [address] Anesthesia: Postop Eval I Current Vital Signs [...] Rene Rebollar Signature: Date CC: Signed Normal [facility] Operative Reporton Operative Report [facility] Medical Records Department [address] [place] [address] Operative Report 11/18/24 1016 MR#: [id number] Acct: [id number] Name: PILAR PERSAUD Rep #: [id number] : 1955 69 From: Yadiel Quinn DO PCP: Dr. Anastacio Lloyd MD Status:[facility] Location: [place] [address] Operative Report (Standard) Operative Information Date of Procedure: 11/18/24 Pre-Operative Diagnosis: Left hip DJD Post-Operative Diagnosis: Same Surgery/Procedure Performed: Left total hip arthroplasty financial legal assistant: Yes Studio Associate: Castillo Costello Tasks completed by assistant director of admissions: Opening closing Type of Anesthesia: Spinal RN [...] Select all DRAINS/GRAFTS/IMPLANTS that apply: Implanted device ([place]) Implanted device details: Sera Estimated Blood Loss: [...] cc Complications: None Condition: Stable to PACU Buying Agent Castillo Costello. My physician education administrative assistant was a vital part of this [...] the acetabulum. (more content not included)... Normal [facility] Fructosamineon 11-13-2024 FRUCTOSAMINE 231 umol/L Normal 0-285 [facility] Comment on above: Result Comment: Publ ished reference interval for apparently healthy subjects between age 20 and 60 is 205 - 285 umol/L and in a poorly controlled diabetic population is 228 - 563 umol/L with a mean of 396 umol/L. Performed at: [address] [id number] Physiologist: Matt Rizo MD, Phone: [phone] Performed at: [address] [id number] Physiologist: Leonid Juarez PhD, Phone: [phone] Performed By: #### L 501.5200, L3600.3400, L500.2500, L501.9985, BTSPAT, L300.4310, L100.0100, M100.651, L3400.0100, L300.3900 ####[facility] [address] [place], [address] Nicotine Screen Bloodon -0 COTININE BLOOD <1.0 Normal . [facility] Comment on above: Result Comment: This test was developed and its performance characteristics determined by [employer]. It has not been cleared or approved by the Food and Drug Administration. Cotinine levels greater than 20.0 are consistent with the use of tobacco or tobacco cessation products. Performed By: #### L 501.5200, L3600.3400, L500.2500, L501.9985, BTSPAT, L300.4310, L100.0100, M100.651, L3400.0100, L300.3900 ####[facility] [address] [place], [address] NICOTINE BLOOD <1.0 Normal . [facility] Comment on above: Result Comment: This test was developed and its performance characteristics determined by [employer]. It has not been cleared or approved by the Food and Drug Administration. Nicotine levels greater than 2.0 are consistent with the use of tobacco or tobacco cessation products. Performed By: #### L 501.5200, L3600.3400, L500.2500, L501.9985, BTSPAT, L300.4310, L100.0100, M100.651, L3400.0100, L300.3900 ####[facility] [address] [place], [address] MRSA/SAID NASAL SCREENon MRSA+SAID SCRN Reason for Exam: Angelita jaye MRSA MRSA Negative S. AUREUS S. aureus Negative Normal [facility] Comment on above: Performed By: #### L 501.5200, L3600.3400, L500.2500, L501.9985, BTSPAT, L300.4310, L100.0100, M100.651, L3400.0100, L300.3900 ####[facility] [address] [place], [address] Absolute neutrophil countOrd ered By: Yadiel Quinn on 11-10-2024 Neutrophils (Bld) [#/Vol] 3.3 10*3/uL 2.0-7.7 [facility] Basic Metabolic Profile (BMP )on 11-10-2024 BUN/CRE 23.0 RATIO High 10-20 [facility] Comment on above: Performed By: #### L 501.5200, L3600.3400, L500.2500, L501.9985, BTSPAT, L300.4310, L100.0100, M100.651, L3400.0100, L300.3900 ####[facility] [address] [place], [address] CA,Total 10.2 mg/dL High 8.5-10.1 [facility] Comment on above: Performed By: #### L 501.5200, L3600.3400, L500.2500, L501.9985, BTSPAT, L300.4310, L100.0100, M100.651, L3400.0100, L300.3900 ####[facility] [address] [place], [place], [phone] Chloride [Moles/Vol] 109 mmol/L High 98-107 [facility] Comment on above: Performed By: #### L 501.5200, L3600.3400, L500.2500, L501.9985, BTSPAT, L300.4310, L100.0100, M100.651, L3400.0100, L300.3900 ####[facility] [address] [place], [address] CO2 [Moles/Vol] 30.0 mmol/L Normal 21.0-32.0 [facility] Comment on above: Performed By: #### L 501.5200, L3600.3400, L500.2500, L501.9985, BTSPAT, L300.4310, L100.0100, M100.651, L3400.0100, L300.3900 ####[facility] [address] [place], [address] Creatinine [Mass/Vol] 1.22 mg/dL High 0.55-1.02 [facility] Comment on above: Result Comment: The validity of the calculated GFR GFRAA in patients over 70 years has not been determined. Clinical correlation is essential. Performed By: #### L 501.5200, L3600.3400, L500.2500, L501.9985, BTSPAT, L300.4310, L100.0100, M100.651, L3400.0100, L300.3900 ####[facility] [address] [place], [place], [phone] EST GFR - AA 56 mL/min Low >60 [facility] Comment on above: Result Comment: Afri can Indonesian GFR Calc Performed By: #### L 501.5200, L3600.3400, L500.2500, L501.9985, BTSPAT, L300.4310, L100.0100, M100.651, L3400.0100, L300.3900 ####[facility] [address] [place], [address] GAP 2 Low 5-15 [facility] Comment on above: Performed By: #### L 501.5200, L3600.3400, L500.2500, L501.9985, BTSPAT, L300.4310, L100.0100, M100.651, L3400.0100, L300.3900 ####[facility] [address] [place], [address] GFR/1.73 sq M.predicted among non-blacks MDRD (S/P/Bld) [Vol rate/Area] 46 mL/min/{1.73_m2} Low >60 [facility] Comment on above: Result Comment: Non- GFR Calc Performed By: #### L 501.5200, L3600.3400, L500.2500, L501.9985, BTSPAT, L300.4310, L100.0100, M100.651, L3400.0100, L300.3900 ####[facility] [address] [place], [address] Glucose [Mass/Vol] 98 mg/dL Normal 74-106 [facility] Comment on above: Performed By: #### L 501.5200, L3600.3400, L500.2500, L501.9985, BTSPAT, L300.4310, L100.0100, M100.651, L3400.0100, L300.3900 ####[facility] [address] [place], [place], [phone] Potassium [Moles/Vol] 4.6 mmol/L Normal 3.5-5.1 [facility] Comment on above: Performed By: #### L 501.5200, L3600.3400, L500.2500, L501.9985, BTSPAT, L300.4310, L100.0100, M100.651, L3400.0100, L300.3900 ####[facility] [address] [place], [place], [phone] Sodium [Moles/Vol] 141 mmol/L Normal 136-145 [facility] Comment on above: Performed By: #### L 501.5200, L3600.3400, L500.2500, L501.9985, BTSPAT, L300.4310, L100.0100, M100.651, L3400.0100, L300.3900 ####[facility] [address] [place], [place], [phone] Urea nitrogen [Mass/Vol] 28 mg/dL High 7-18 [facility] Comment on above: Performed By: #### L 501.5200, L3600.3400, L500.2500, L501.9985, BTSPAT, L300.4310, L100.0100, M100.651, L3400.0100, L300.3900 ####[facility] [address] [place], [place], [phone] Basophil percentageOrdered B y: Yadiel Quinn on 11-10-2024 Basophils/100 WBC (Bld) 0.9 % 0-1 [facility] Blood cotinine screen by enz yme immunoassayOrdered By: Yadiel Quinn on 11-10-2024 Nicotine & Cotinine <1.0 ug/mL . [facility] Comment on above: This test was develo ped and its performance characteristicsdetermined by [employer]. It has not been cleared orapproved by the Food and Drug Administration.Cotinine levels greater than 20.0 are consistent with theuse of tobacco or tobacco cessation products. Blood urea nitrogen (BUN)/cr eatinine ratioOrdered By: Yadiel Quinn on 11-10-2024 Urea nitrogen/Creatinine [Mass ratio] 23.0 mg/mg High 10-20 [facility] CBC W/Diff, Automatedon Absolute Lymph 1.56 X10 3/uL Normal 0.83-4.51 [facility] Comment on above: Performed By: #### L 501.5200, L3600.3400, L500.2500, L501.9985, BTSPAT, L300.4310, L100.0100, M100.651, L3400.0100, L300.3900 ####[facility] [address] [place], [place], [phone] Absolute Neut 3.3 X10 3/uL Normal 2.0-7.7 [facility] Comment on above: Performed By: #### L 501.5200, L3600.3400, L500.2500, L501.9985, BTSPAT, L300.4310, L100.0100, M100.651, L3400.0100, L300.3900 ####[facility] [address] [place], [address] Basophils/100 WBC (Bld) 0.9 % Normal 0-1 [facility] Comment on above: Performed By: #### L 501.5200, L3600.3400, L500.2500, L501.9985, BTSPAT, L300.4310, L100.0100, M100.651, L3400.0100, L300.3900 ####[facility] [address] [place], [place], [phone](711) Eosinophils/100 WBC (Bld) 2.7 % Normal 0-5 [facility] Comment on above: Performed By: #### L 501.5200, L3600.3400, L500.2500, L501.9985, BTSPAT, L300.4310, L100.0100, M100.651, L3400.0100, L300.3900 ####[facility] [address] [place], [place], [phone](727) Erythrocyte distribution width (RBC) [Ratio] 12.1 % Normal 11.6-14.6 [facility] Comment on above: Performed By: #### L 501.5200, L3600.3400, L500.2500, L501.9985, BTSPAT, L300.4310, L100.0100, M100.651, L3400.0100, L300.3900 ####[facility] [address] [place], [address](813) Hematocrit (Bld) [Volume fraction] 37.8 % Normal 37-47 [facility] Comment on above: Performed By: #### L 501.5200, L3600.3400, L500.2500, L501.9985, BTSPAT, L300.4310, L100.0100, M100.651, L3400.0100, L300.3900 ####[facility] [address] [place], [place], [phone](011) Hemoglobin (Bld) [Mass/Vol] 11.9 g/dL Low 12.0-15.0 [facility] Comment on above: Performed By: #### L 501.5200, L3600.3400, L500.2500, L501.9985, BTSPAT, L300.4310, L100.0100, M100.651, L3400.0100, L300.3900 ####[facility] [address] [place], [address] IG% 0.400 Normal 0.0-0.9 [facility] Comment on above: Result Comment: IG% - Immature Granulocytes (promyelocytes, myelocytes and metamyelocytes) > 1% indicates that a LEFT SHIFT is Present. Performed By: #### L 501.5200, L3600.3400, L500.2500, L501.9985, BTSPAT, L300.4310, L100.0100, M100.651, L3400.0100, L300.3900 ####[facility] [address] [place], [address] Lymphocytes/100 WBC (Bld) 28.2 % Normal 19-41 [facility] Comment on above: Performed By: #### L 501.5200, L3600.3400, L500.2500, L501.9985, BTSPAT, L300.4310, L100.0100, M100.651, L3400.0100, L300.3900 ####[facility] [address] [place], [address] MCH (RBC) [Entitic mass] 30.3 pg Normal 27.0-32.0 [facility] Comment on above: Performed By: #### L 501.5200, L3600.3400, L500.2500, L501.9985, BTSPAT, L300.4310, L100.0100, M100.651, L3400.0100, L300.3900 ####[facility] [address] [place], [address] MCHC (RBC) [Mass/Vol] 31.5 g/dL Low 32-36 [facility] Comment on above: Performed By: #### L 501.5200, L3600.3400, L500.2500, L501.9985, BTSPAT, L300.4310, L100.0100, M100.651, L3400.0100, L300.3900 ####[facility] [address] [place], [address] MCV (RBC) [Entitic vol] 96.2 fL Normal 81-99 [facility] Comment on above: Performed By: #### L 501.5200, L3600.3400, L500.2500, L501.9985, BTSPAT, L300.4310, L100.0100, M100.651, L3400.0100, L300.3900 ####[facility] [address] [place], [address] Monocytes/100 WBC (Bld) 8.3 % Normal 0-10 [facility] Comment on above: Performed By: #### L 501.5200, L3600.3400, L500.2500, L501.9985, BTSPAT, L300.4310, L100.0100, M100.651, L3400.0100, L300.3900 ####[facility] [address] [place], [address] Neutrophils/100 WBC (Bld) 59.5 % Normal 47-70 [facility] Comment on above: Performed By: #### L 501.5200, L3600.3400, L500.2500, L501.9985, BTSPAT, L300.4310, L100.0100, M100.651, L3400.0100, L300.3900 ####[facility] [address] [place], [address] Nucleated RBC (Bld) [#/Vol] 0 10*3/uL Normal 0-5 [facility] Comment on above: Performed By: #### L 501.5200, L3600.3400, L500.2500, L501.9985, BTSPAT, L300.4310, L100.0100, M100.651, L3400.0100, L300.3900 ####[facility] [address] [place], [address] Platelet mean volume (Bld) [Entitic vol] 9.1 fL Normal 6.2-12.0 [facility] Comment on above: Performed By: #### L 501.5200, L3600.3400, L500.2500, L501.9985, BTSPAT, L300.4310, L100.0100, M100.651, L3400.0100, L300.3900 ####[facility] [address] [place], [address](287) Platelets (Bld) [#/Vol] 287 10*3/uL Normal 150-450 [facility] Comment on above: Performed By: #### L 501.5200, L3600.3400, L500.2500, L501.9985, BTSPAT, L300.4310, L100.0100, M100.651, L3400.0100, L300.3900 ####[facility] [address] [place], [address] RBC (Bld) [#/Vol] 3.93 10*6/uL Low 4.2-5.4 [facility] Comment on above: Performed By: #### L 501.5200, L3600.3400, L500.2500, L501.9985, BTSPAT, L300.4310, L100.0100, M100.651, L3400.0100, L300.3900 ####[facility] [address] [place], [address](437) RDW SD 42.5 fl Normal 35.1-43.9 [facility] Comment on above: Performed By: #### L 501.5200, L3600.3400, L500.2500, L501.9985, BTSPAT, L300.4310, L100.0100, M100.651, L3400.0100, L300.3900 ####[facility] [address] [place], [address](640) WBC (Bld) [#/Vol] 5.5 10*3/uL Normal 4.4-11.0 [facility] Comment on above: Performed By: #### L 501.5200, L3600.3400, L500.2500, L501.9985, BTSPAT, L300.4310, L100.0100, M100.651, L3400.0100, L300.3900 ####[facility] [address] [place], [address] Carbon dioxide measurementOr dered By: [facility] on 11-10-2024 CO2 [Moles/Vol] 30.0 mmol/L 21.0-32.0 [facility] Chloride measurementOrdered By: [facility] on 11-10-2024 Chloride [Moles/Vol] 109 mmol/L High 98-107 [facility] Eosinophil percentageOrdered By: [facility] on 11-10-2024 Eosinophils/100 WBC (Bld) 2.7 % 0-5 [facility] Erythrocyte distribution wid th ratioOrdered By: [facility] on 11-10-2024 Erythrocyte distribution width (RBC) [Ratio] 12.1 % 11.6-14.6 [facility] Erythrocyte distribution wid th standard deviationOrdered By: [facility] on 11-10-2024 Erythrocyte distribution width (RBC) [Entitic vol] 42.5 fL 35.1-43.9 [facility] Estimated glomerular filtrat ion rate (GFR) AmericanOrdered By: [facility] on 11-10-2024 Estimated GFR (MDRD) Amer 56 mL/min Low >60 [facility] Comment on above: GFR Calc Extremity Lower without Cont raon 11-10-2024 Extremity Lower without Contra [facility] Imaging Services [address] [place] [address] Extremity Lower without Contra MR#: [id number] Acct: [id number] Name: PILAR PERSAUD Rep #: [id number] : 1955 F 69 From: Alen Fermin MD PCP: Dr. Anastacio Lloyd MD Status: REG CLI Study: Extremity Lower without Contra Date of Exam: 0 11/10/24 Exam# [id number] Ordering Dr: Yadiel Quinn DO [id number] EXAM: CT LEFT LOWER EXTREMITY WITHOUT INTRAVENOUS [...] disease at and L5-S1 and at least zwmw-ms-dqzjtujy disease at L4-5. No unusual lytic lesions [...] Anastacio Lloyd MD; Dr. Yadiel Quinn DO Collection Manager: Signed Normal [facility] FructosamineOrdered By: Desmond Quinn on 11-10-2024 Fructosamine 231 umol/L 0-285 [facility] Comment on above: Published reference interval for apparently healthysubjects between age 20 and 60 is 205 - 285 umol/L and in apoorly controlled diabetic population is 228 - 563 umol/Lwith a mean of 396 umol/L.Performed at: [place] [address] [place], [place] [id number] Director: Matt Rizo MD, Phone: [phone] at: [facility] [id number] [place], [place] [id number] Director: Leonid Juarez PhD, Phone: [phone] Glomerular filtration rate ( GFR) estimationOrdered By: Yadiel Quinn on 11-10-2024 Estimated GFR (MDRD) Non-Af Amer 46 mL/min Low >60 [facility] Comment on above: Non- GFR Calc Glucose measurementOrdered B y: Yadiel Quinn on 11-10-2024 Glucose [Mass/Vol] 98 mg/dL 74-106 [facility] Hematocrit Auto (Bld) [Volum e fraction]Ordered By: Yadiel Quinn on 11-10-2024 Hematocrit (Bld) [Volume fraction] 37.8 % 37-47 [facility] Hemoglobin A1con 11-10-2024 HbA1c (Bld) [Mass fraction] 5.7 % High 3.8-5.6 [facility] Comment on above: Result Comment: Norm al < 5.7 % Prediabetic 5.7 - 6.4 % Diabetic >or= 6.5 % Please note range changes. Performed By: #### L 501.5200, L3600.3400, L500.2500, L501.9985, BTSPAT, L300.4310, L100.0100, M100.651, L3400.0100, L300.3900 ####[facility] [address] [place], [place], [phone] Hemoglobin A1c percentageOrd ered By: Yadiel Quinn on 11-10-2024 HbA1c (Bld) [Mass fraction] 5.7 % High 3.8-5.6 [facility] Comment on above: Normal < 5.7 % Predi abetic 5.7 - 6.4 % Diabetic >or= 6.5 % Please note range changes. Hemoglobin measurementOrdere d By: Yadiel Quinn on 11-10-2024 Hemoglobin (Bld) [Mass/Vol] 11.9 g/dL Low 12.0-15.0 [facility] Immature granulocytes/100 WB C Auto (Bld)Ordered By: Yadiel Quinn on 11-10-2024 Immature granulocytes/100 WBC (Bld) 0.400 % 0.0-0.9 [facility] Comment on above: IG% - Immature Granu locytes (promyelocytes, myelocytes and metamyelocytes) > 1% indicates that a LEFT SHIFT is Present. International normalized rat io (INR) calculationOrdered By: Yadiel Quinn on 11-10-2024 INR Coag (Bld) [Relative time] 1.0 {INR} [facility] Lymphocytes Auto (Unsp spec) [#/Vol]Ordered By: Yadiel Quinn on 11-10-2024 Lymphocytes (Bld) [#/Vol] 1.56 10*3/uL 0.83-4.51 [facility] Lymphocytes/100 WBC Auto (Un sp spec)Ordered By: Yadiel Quinn on 11-10-2024 Lymphocytes/100 WBC (Bld) 28.2 % 19-41 [facility] MCV (mean corpuscular volume ) determinationOrdered By: Yadiel Quinn on 11-10-2024 MCV (RBC) [Entitic vol] 96.2 fL 81-99 [facility] MRSA screenOrdered By: Kris Quinn on 11-10-2024 Nasal Screen MRSA/MSSA [facility] Magnesiumon 11-10-2024 Magnesium [Mass/Vol] 1.8 mg/dL Normal 1.6-2.6 [facility] Comment on above: Performed By: #### L 501.5200, L3600.3400, L500.2500, L501.9985, BTSPAT, L300.4310, L100.0100, M100.651, L3400.0100, L300.3900 ####[facility] [address] [place], [place], [phone] Magnesium measurementOrdered By: Yadiel Quinn on 11-10-2024 Magnesium [Mass/Vol] 1.8 mg/dL 1.6-2.6 [facility] Mean corpuscular hemoglobin (MCH) determinationOrdered By: Yadiel Quinn on 11-10-2024 MCH (RBC) [Entitic mass] 30.3 pg 27.0-32.0 [facility] Mean corpuscular hemoglobin concentration (MCHC) determinationOrdered By: Yadiel Quinn on 11-10-2024 MCHC (RBC) [Mass/Vol] 31.5 g/dL Low 32-36 [facility] Mean platelet volume determi nationOrdered By: Yadiel Quinn on 11-10-2024 Platelet mean volume (Bld) [Entitic vol] 9.1 fL 6.2-12.0 [facility] Monocyte percentageOrdered B y: Yadiel Quinn on 11-10-2024 Monocytes/100 WBC (Bld) 8.3 % 0-10 [facility] Neutrophil percentageOrdered By: Yadiel Quinn on 11-10-2024 Neutrophils/100 WBC (Bld) 59.5 % 47-70 [facility] Nicotine [Mass/Vol]Ordered B y: Yadiel Leungonel on 11-10-2024 Nicotine Level <1.0 ug/mL . [facility] Comment on above: This test was develo ped and its performance characteristicsdetermined by [employer]. It has not been cleared orapproved by the Food and Drug Administration.Nicotine levels greater than 2.0 are consistent with theuse of tobacco or tobacco cessation products. Nucleated red blood cell per centageOrdered By: Yadiel Quinn on 11-10-2024 Nucleated RBC/100 WBC (Bld) [Ratio] 0 % 0-5 [facility] Partial Thromboplast Timeon 11-10-2024 aPTT Coag (Bld) [Time] 25.5 s Normal 24.1-36.2 [facility] Comment on above: Performed By: #### L 501.5200, L3600.3400, L500.2500, L501.9985, BTSPAT, L300.4310, L100.0100, M100.651, L3400.0100, L300.3900 ####[facility] [address] [place], [address] Platelet countOrdered By: Nicky Quinn on 11-10-2024 Platelets (Bld) [#/Vol] 287 10*3/uL 150-450 [facility] Potassium measurementOrdered By: Yadiel Quinn on 11-10-2024 Potassium [Moles/Vol] 4.6 mmol/L 3.5-5.1 [facility] Prothrombin Time w/INRon INR Coag (PPP) [Relative time] 1.0 {INR} Normal [facility] Comment on above: Performed By: #### L 501.5200, L3600.3400, L500.2500, L501.9985, BTSPAT, L300.4310, L100.0100, M100.651, L3400.0100, L300.3900 ####[facility] [address] [place], [place], [phone] PT Coag (PPP) [Time] 13.1 s Normal 11.7-14.9 [facility] Comment on above: Performed By: #### L 501.5200, L3600.3400, L500.2500, L501.9985, BTSPAT, L300.4310, L100.0100, M100.651, L3400.0100, L300.3900 ####[facility] [address] [place], [place], [phone] Prothrombin timeOrdered By: Yadiel Quinn on 11-10-2024 PT Coag (PPP) [Time] 13.1 s 11.7-14.9 [facility] RBC Auto (Bld) [#/Vol]Ordere d By: Yadiel Quinn on 11-10-2024 RBC (Bld) [#/Vol] 3.93 10*6/uL Low 4.2-5.4 [facility] Serum anion gap measurementO rdered By: Yadiel Quinn on 11-10-2024 Anion gap [Moles/Vol] 2 mmol/L Low 5-15 [facility] Serum or plasma calcium filomena urement (mass/volume)Ordered By: Yadiel Quinn on 11-10-2024 Calcium [Mass/Vol] 10.2 mg/dL High 8.5-10.1 [facility] Serum or plasma creatinine m easurement (mass/volume)Ordered By: Yadiel Quinn on 11-10-2024 Creatinine [Mass/Vol] 1.22 mg/dL High 0.55-1.02 [facility] Comment on above: The validity of the calculated GFR & GFRAA in patients over 70 years has not been determined. Clinical correlation is essential. Serum or plasma urea nitroge n measurement (mass/volume)Ordered By: Ydaiel Quinn on 11-10-2024 Urea nitrogen [Mass/Vol] 28 mg/dL High 7-18 [facility] Sodium levelOrdered By: Desmond Quinn on 11-10-2024 Sodium [Moles/Vol] 141 mmol/L 136-145 [facility] Type AND Screen - PAT ONLYon 11-10-2024 Ab SCREEN GEL Negative Normal [facility] Comment on above: Order Comment: Reaso n for Laboratory Test [id number] THR Performed By: #### L 501.5200, L3600.3400, L500.2500, L501.9985, BTSPAT, L300.4310, L100.0100, M100.651, L3400.0100, L300.3900 ####[facility] [address] [place], [place], [id number] White blood cell (WBC) count Ordered By: Yadiel Quinn on 11-10-2024 WBC (Bld) [#/Vol] 5.5 10*3/uL 4.4-11.0 [facility] aPTT Coag (PPP) [Time]Ordere d By: Yadiel Quinn on 11-10-2024 aPTT Coag (Bld) [Time] 25.5 s 24.1-36.2 [facility] Nicotine Screen Bloodon 12- COTININE BLOOD <1.0 Normal . [facility] Comment on above: Result Comment: This test was developed and its performance characteristics determined by [employer]. It has not been cleared or approved by the Food and Drug Administration. Cotinine levels greater than 20.0 are consistent with the use of tobacco or tobacco cessation products. Performed at: [address] [id number] Physiologist: Matt Rizo MD, Phone: [phone] Performed By: #### L 500.4100, L506.1000, L100.0100, L509.1000, L500.4050 #### [facility] [address] [place], [place], [address] NICOTINE BLOOD <1.0 Normal . [facility] Comment on above: Result Comment: This test was developed and its performance characteristics determined by [employer]. It has not been cleared or approved by the Food and Drug Administration. Nicotine levels greater than 2.0 are consistent with the use of tobacco or tobacco cessation products. Performed By: #### L 500.4100, L506.1000, L100.0100, L509.1000, L500.4050 #### [facility] [address] [place], [place], [phone] Blood cotinine screen by [employer] immunoassayOrdered By: Yadiel Quinn on 10-27-2024 Nicotine & Cotinine <1.0 ug/mL . [facility] Comment on above: This test was develo ped and its performance characteristicsdetermined by [employer]. It has not been cleared orapproved by the Food and Drug Administration.Cotinine levels greater than 20.0 are consistent with theuse of tobacco or tobacco cessation products.Performed at: [address] [id number] Director: Matt Rizo MD, Phone: [phone] Nicotine [Mass/Vol]Ordered B y: Yadiel Quinn on 10-27-2024 Nicotine Level <1.0 ug/mL . [facility] Comment on above: This test was develo ped and its performance characteristicsdetermined by [employer]. It has not been cleared orapproved by the Food and Drug Administration.Nicotine levels greater than 2.0 are consistent with theuse of tobacco or tobacco cessation products. CBC W/Diff, Automatedon - Absolute Lymph 1.51 X10 3/uL Normal 0.83-4.51 [facility] Comment on above: Order Comment: Order Date: 05/27/24 Order Info: [id number] - CBCD Performed By: #### L 500.4100, L506.1000, L100.0100, L509.1000, L500.4050 #### [facility] [address] [place], [address] Absolute Neut 4.0 X10 3/uL Normal 2.0-7.7 [facility] Comment on above: Order Comment: Order Date: 05/27/24 Order Info: 018- - CBCD Performed By: #### L 500.4100, L506.1000, L100.0100, L509.1000, L500.4050 #### [facility] [address] [place], [address] Basophils/100 WBC (Bld) 0.6 % Normal 0-1 [facility] Comment on above: Order Comment: Order Date: 05/27/24 Order Info: 018- - CBCD Performed By: #### L 500.4100, L506.1000, L100.0100, L509.1000, L500.4050 #### [facility] [address] [place], [address] Eosinophils/100 WBC (Bld) 5.0 % Normal 0-5 [facility] Comment on above: Order Comment: Order Date: 05/27/24 Order Info: 0184- - CBCD Performed By: #### L 500.4100, L506.1000, L100.0100, L509.1000, L500.4050 #### [facility] [address] [place], [address] Erythrocyte distribution width (RBC) [Ratio] 12.4 % Normal 11.6-14.6 [facility] Comment on above: Order Comment: Order Date: 05/27/24 Order Info: 0184- - CBCD Performed By: #### L 500.4100, L506.1000, L100.0100, L509.1000, L500.4050 #### [facility] [address] [place], [address] Hematocrit (Bld) [Volume fraction] 38.7 % Normal 37-47 [facility] Comment on above: Order Comment: Order Date: 05/27/24 Order Info: 0184-1 - CBCD Performed By: #### L 500.4100, L506.1000, L100.0100, L509.1000, L500.4050 #### [facility] [address] [place], [address] Hemoglobin (Bld) [Mass/Vol] 12.3 g/dL Normal 12.0-15.0 [facility] Comment on above: Order Comment: Order Date: 05/27/24 Order Info: 0184-1 - CBCD Performed By: #### L 500.4100, L506.1000, L100.0100, L509.1000, L500.4050 #### [facility] [address] [place], [address] IG% 0.300 Normal 0.0-0.9 [facility] Comment on above: Order Comment: Order Date: 05/27/24 Order Info: 0184-1 - CBCD Result Comment: IG% - Immature Granulocytes (promyelocytes, myelocytes and metamyelocytes) > 1% indicates that a LEFT SHIFT is Present. Performed By: #### L 500.4100, L506.1000, L100.0100, L509.1000, L500.4050 #### [facility] [address] [place], [address] Lymphocytes/100 WBC (Bld) 23.7 % Normal 19-41 [facility] Comment on above: Order Comment: Order Date: 05/27/24 Order Info: 0184-1 - CBCD Performed By: #### L 500.4100, L506.1000, L100.0100, L509.1000, L500.4050 #### [facility] [address] [place], [address] MCH (RBC) [Entitic mass] 30.9 pg Normal 27.0-32.0 [facility] Comment on above: Order Comment: Order Date: 05/27/24 Order Info: 0184-1 - CBCD Performed By: #### L 500.4100, L506.1000, L100.0100, L509.1000, L500.4050 #### [facility] [address] [place], [address] MCHC (RBC) [Mass/Vol] 31.8 g/dL Low 32-36 [facility] Comment on above: Order Comment: Order Date: 05/27/24 Order Info: 0184- - CBCD Performed By: #### L 500.4100, L506.1000, L100.0100, L509.1000, L500.4050 #### [facility] [address] [place], [address] MCV (RBC) [Entitic vol] 97.2 fL Normal 81-99 [facility] Comment on above: Order Comment: Order Date: 05/27/24 Order Info: 0184- - CBCD Performed By: #### L 500.4100, L506.1000, L100.0100, L509.1000, L500.4050 #### [facility] [address] [place], [address] Monocytes/100 WBC (Bld) 7.5 % Normal 0-10 [facility] Comment on above: Order Comment: Order Date: 05/27/24 Order Info: 0184- - CBCD Performed By: #### L 500.4100, L506.1000, L100.0100, L509.1000, L500.4050 #### [facility] [address] [place], [address] Neutrophils/100 WBC (Bld) 62.9 % Normal 47-70 [facility] Comment on above: Order Comment: Order Date: 05/27/24 Order Info: 0184-1 - CBCD Performed By: #### L 500.4100, L506.1000, L100.0100, L509.1000, L500.4050 #### [facility] [address] [place], [address] Nucleated RBC (Bld) [#/Vol] 0 10*3/uL Normal 0-5 [facility] Comment on above: Order Comment: Order Date: 05/27/24 Order Info: 0184-1 - CBCD Performed By: #### L 500.4100, L506.1000, L100.0100, L509.1000, L500.4050 #### [facility] [address] [place], [address] Platelet mean volume (Bld) [Entitic vol] 9.3 fL Normal 6.2-12.0 [facility] Comment on above: Order Comment: Order Date: 05/27/24 Order Info: 0184-1 - CBCD Performed By: #### L 500.4100, L506.1000, L100.0100, L509.1000, L500.4050 #### [facility] [address] [place], [address] Platelets (Bld) [#/Vol] 304 10*3/uL Normal 150-450 [facility] Comment on above: Order Comment: Order Date: 05/27/24 Order Info: 0184-1 - CBCD Performed By: #### L 500.4100, L506.1000, L100.0100, L509.1000, L500.4050 #### [facility] [address] [place], [address] RBC (Bld) [#/Vol] 3.98 10*6/uL Low 4.2-5.4 [facility] Comment on above: Order Comment: Order Date: 05/27/24 Order Info: 0184-1 - CBCD Performed By: #### L 500.4100, L506.1000, L100.0100, L509.1000, L500.4050 #### [facility] [address] [place], [address] RDW SD 44.3 fl High 35.1-43.9 [facility] Comment on above: Order Comment: Order Date: 05/27/24 Order Info: 0184-1 - CBCD Performed By: #### L 500.4100, L506.1000, L100.0100, L509.1000, L500.4050 #### [facility] [address] [place], [address] WBC (Bld) [#/Vol] 6.4 10*3/uL Normal 4.4-11.0 [facility] Comment on above: Order Comment: Order Date: 05/27/24 Order Info: 0184-1 - CBCD Performed By: #### L 500.4100, L506.1000, L100.0100, L509.1000, L500.4050 #### [facility] [address] [place], [address] Comprehensive Metabolic Prof [facility] 09-15-2024 Albumin [Mass/Vol] 3.7 g/dL Normal 3.2-5.0 [facility] Comment on above: Order Comment: Order Date: 05/27/24 Order Info: 0786-1 - CMP Order Info: [id number] - LIPID Performed By: #### L 500.4100, L506.1000, L100.0100, L509.1000, L500.4050 #### [facility] [address] [place], [address] Albumin/Globulin [Mass ratio] 1.2 {ratio} Normal 0.9-2.4 [facility] Comment on above: Order Comment: Order Date: 05/27/24 Order Info: [id number] - CMP Order Info: [id number] - LIPID Performed By: #### L 500.4100, L506.1000, L100.0100, L509.1000, L500.4050 #### [facility] [address] [place], [address] ALK P 96 U/L Normal 45-117 [facility] Comment on above: Order Comment: Order Date: 05/27/24 Order Info: [id number] - CMP Order Info: [id number] - LIPID Performed By: #### L 500.4100, L506.1000, L100.0100, L509.1000, L500.4050 #### [facility] [address] [place], [address] ALT [Catalytic activity/Vol] 23 U/L Normal 13-56 [facility] Comment on above: Order Comment: Order Date: 05/27/24 Order Info: 0786- - CMP Order Info: [id number] - LIPID Performed By: #### L 500.4100, L506.1000, L100.0100, L509.1000, L500.4050 #### [facility] [address] [place], [address] AST [Catalytic activity/Vol] 21 U/L Normal 15-37 [facility] Comment on above: Order Comment: Order Date: 05/27/24 Order Info: 0786- - CMP Order Info: [id number] - LIPID Performed By: #### L 500.4100, L506.1000, L100.0100, L509.1000, L500.4050 #### [facility] [address] [place], [address] Bilirubin [Mass/Vol] 0.30 mg/dL Normal 0.20-1.00 [facility] Comment on above: Order Comment: Order Date: 05/27/24 Order Info: [id number] - CMP Order Info: [id number] - LIPID Result Comment: For patients on eltrombopag therapy, use of Dimension [place] TBIL is not recommended. Performed By: #### L 500.4100, L506.1000, L100.0100, L509.1000, L500.4050 #### [facility] [address] [place], [address] BUN/CRE 22.3 RATIO High 10-20 [facility] Comment on above: Order Comment: Order Date: 05/27/24 Order Info: 0786- - CMP Order Info: [id number] - LIPID Performed By: #### L 500.4100, L506.1000, L100.0100, L509.1000, L500.4050 #### [facility] [address] [place], [address] CA,Total 9.0 mg/dL Normal 8.5-10.1 [facility] Comment on above: Order Comment: Order Date: 05/27/24 Order Info: 0786- - CMP Order Info: [id number] - LIPID Performed By: #### L 500.4100, L506.1000, L100.0100, L509.1000, L500.4050 #### [facility] [address] [place], [address] Chloride [Moles/Vol] 113 mmol/L High 98-107 [facility] Comment on above: Order Comment: Order Date: 05/27/24 Order Info: 0786- - CMP Order Info: [id number] - LIPID Performed By: #### L 500.4100, L506.1000, L100.0100, L509.1000, L500.4050 #### [facility] [address] [place], [address] CO2 [Moles/Vol] 28.0 mmol/L Normal 21.0-32.0 [facility] Comment on above: Order Comment: Order Date: 05/27/24 Order Info: [id number] - CMP Order Info: [id number] - LIPID Performed By: #### L 500.4100, L506.1000, L100.0100, L509.1000, L500.4050 #### [facility] [address] [place], [address] Creatinine [Mass/Vol] 1.03 mg/dL High 0.55-1.02 [facility] Comment on above: Order Comment: Order Date: 05/27/24 Order Info: 07 - CMP Order Info: [id number] - LIPID Result Comment: The validity of the calculated GFR GFRAA in patients over 70 years has not been determined. Clinical correlation is essential. Performed By: #### L 500.4100, L506.1000, L100.0100, L509.1000, L500.4050 #### [facility] [address] [place], [address] EST GFR - AA 68 mL/min Normal >60 [facility] Comment on above: Order Comment: Order Date: 05/27/24 Order Info: 07 - CMP Order Info: [id number] - LIPID Result Comment: Afri can Indonesian GFR Calc Performed By: #### L 500.4100, L506.1000, L100.0100, L509.1000, L500.4050 #### [facility] [address] [place], [address] GAP 1 Low 5-15 [facility] Comment on above: Order Comment: Order Date: 05/27/24 Order Info: 0786 - CMP Order Info: [id number] - LIPID Performed By: #### L 500.4100, L506.1000, L100.0100, L509.1000, L500.4050 #### [facility] [address] [place], [address] GFR/1.73 sq M.predicted among non-blacks MDRD (S/P/Bld) [Vol rate/Area] 56 mL/min/{1.73_m2} Low >60 [facility] Comment on above: Order Comment: Order Date: 05/27/24 Order Info: 0786 - CMP Order Info: [id number] - LIPID Result Comment: Non- GFR Calc Performed By: #### L 500.4100, L506.1000, L100.0100, L509.1000, L500.4050 #### [facility] [address] [place], [address] Globulin (S) [Mass/Vol] 3.2 g/dL Normal 2.2-4.2 [facility] Comment on above: Order Comment: Order Date: 05/27/24 Order Info: [id number] - CMP Order Info: [id number] - LIPID Performed By: #### L 500.4100, L506.1000, L100.0100, L509.1000, L500.4050 #### [facility] [address] [place], [address] Glucose [Mass/Vol] 90 mg/dL Normal 74-106 [facility] Comment on above: Order Comment: Order Date: 05/27/24 Order Info: 07 - CMP Order Info: [id number] - LIPID Performed By: #### L 500.4100, L506.1000, L100.0100, L509.1000, L500.4050 #### [facility] [address] [place], [address] Potassium [Moles/Vol] 4.2 mmol/L Normal 3.5-5.1 [facility] Comment on above: Order Comment: Order Date: 05/27/24 Order Info: 0786- - CMP Order Info: [id number] - LIPID Performed By: #### L 500.4100, L506.1000, L100.0100, L509.1000, L500.4050 #### [facility] [address] [place], [address] Sodium [Moles/Vol] 142 mmol/L Normal 136-145 [facility] Comment on above: Order Comment: Order Date: 05/27/24 Order Info: 0786- - CMP Order Info: [id number] - LIPID Performed By: #### L 500.4100, L506.1000, L100.0100, L509.1000, L500.4050 #### [facility] [address] [place], [address] T PROT 6.9 g/dL Normal 6.4-8.2 [facility] Comment on above: Order Comment: Order Date: 05/27/24 Order Info: [id number] - CMP Order Info: [id number] - LIPID Performed By: #### L 500.4100, L506.1000, L100.0100, L509.1000, L500.4050 #### [facility] [address] [place], [address] Urea nitrogen [Mass/Vol] 23 mg/dL High 7-18 [facility] Comment on above: Order Comment: Order Date: 05/27/24 Order Info: 0786- - CMP Order Info: [id number] - LIPID Performed By: #### L 500.4100, L506.1000, L100.0100, L509.1000, L500.4050 #### [facility] [address] [place], [place], [address] Lipid Profileon 09-15-2024 Cholesterol [Mass/Vol] 111 mg/dL Normal 200 [facility] Comment on above: Order Comment: Order Date: 05/27/24 Order Info: 0786-1 - CMP Order Info: [id number] - LIPID Result Comment: <200 mg/dL Desirable 200-240 mg/dL Borderline >240 mg/dL High Risk Performed By: #### L 500.4100, L506.1000, L100.0100, L509.1000, L500.4050 #### [facility] [address] [place], [address] Cholesterol in HDL [Mass/Vol] 47 mg/dL Normal [facility] Comment on above: Order Comment: Order Date: 05/27/24 Order Info: [id number] - CMP Order Info: [id number] - LIPID Result Comment: The drugs N-Acetylcysteine and Metamizole may falsely depress this assay. Reference Range HDL <40 mg/dL Low HDL Cholesterol HDL >or= 60 mg/dL High HDL Cholesterol Performed By: #### L 500.4100, L506.1000, L100.0100, L509.1000, L500.4050 #### [facility] [address] [place], [address] Cholesterol in LDL [Mass/Vol] 47 mg/dL Normal 0-130 [facility] Comment on above: Order Comment: Order Date: 05/27/24 Order Info: [id number] - CMP Order Info: [id number] - LIPID Performed By: #### L 500.4100, L506.1000, L100.0100, L509.1000, L500.4050 #### [facility] [address] [place], [address] Cholesterol in VLDL [Mass/Vol] 17 mg/dL Normal 5-40 [facility] Comment on above: Order Comment: Order Date: 05/27/24 Order Info: [id number] - CMP Order Info: [id number] - LIPID Performed By: #### L 500.4100, L506.1000, L100.0100, L509.1000, L500.4050 #### [facility] [address] [place], [address] Triglyceride [Mass/Vol] 85 mg/dL Normal [facility] Comment on above: Order Comment: Order Date: 05/27/24 Order Info: [id number] - CMP Order Info: [id number] - LIPID Result Comment: The drugs N-Acetylcysteine and Metamizole may falsely depress this assay. Serum Triglycerides Reference Interval Normal <150 mg/dL Borderline high 150 - 199 mg/dL High 200 - 499 mg/dL Very High > or = 500 mg/dL Performed By: #### L 500.4100, L506.1000, L100.0100, L509.1000, L500.4050 #### [facility] [address] [place], [address] Orthopedic Visit Reporton Orthopedic Visit Report [facility] [address] [place] [address] [address] [place] [address] OFFICE VISIT Date of Service: 09/15/24 MR#: [id number] Acct: [id number] Name: PILRA PERSAUD Rep #: [id number] : 1955 Provider: Dr. Yadiel sykes, Age/Sex: 69/F Location: [facility].[place] Status: Signed Intake Vital Signs 08/13/24 10:50 [...] 11/11/21 09/15/24 History (12 Hour Nasal Relief [place]) NOSE aspirin 81 mg tablet 81 mg [...] denosumab 60 mg/mL subcutaneous 60 mg subcut [id number] 08/25/24 09/15/24 History syringe (Prolia) Have you [...] exercise program (more content not included)... Normal [facility] PTHINon 09-15-2024 PTH 78.3 pg/mL Normal 18.4-80.1 [facility] Comment on above: Order Comment: Order Date: 05/27/24 Order Info: [id number] - PTHIN Performed By: #### L 500.4100, L506.1000, L100.0100, L509.1000, L500.4050 #### [facility] [address] [place], [address] Protein+Creatinine Ratio,Uri neon 09-15-2024 PROT:CRE RATIO 82 mg/g CRE Normal 0-200 [facility] Comment on above: Performed By: #### L 501.0900 #### [facility] [address] [place], [address] Protein (U) [Mass/Vol] 9.1 mg/dL Normal <11.9 [facility] Comment on above: Performed By: #### L 501.0900 #### [facility] [address] [place], [address] UR CREAT 111.00 mg/dL Normal NO RANGE EST. [facility] Comment on above: Performed By: #### L 501.0900 #### [facility] [address] [place], [address] Vitamin D,25 Hydroxyon 09-15 Vitamin D 25-OH 85.6 ng/mL Normal [facility] Comment on above: Order Comment: Order Date: 05/27/24 Order Info: [id number] - VITD25 Result Comment: Nona min D 25(OH) Status Range Deficiency <20 ng/mL (50nmol/L) Insufficiency 20 - 30 ng/mL (50 - 75 nmol/L) Sufficiency 30 - 100 ng/mL (75 - 250 nmol/L) Toxicity >100 ng/mL (>250 nmol/L) Performed By: #### L 500.4100, L506.1000, L100.0100, L509.1000, L500.4050 #### [facility] [address] [facility], [address] L/S Spine Min 4 Viewson L/S Spine Min 4 Views [facility] [address] [place] [address] L/S Spine Min 4 Views MR#: [id number] Acct: [id number] Name: PILAR PERSAUD Rep #: [id number] : 1955 F 69 From: Imani bee MD PCP: Dr. Anastacio Lloyd MD Status: DEP AMB Study: L/S Spine Min 4 Views Date of Exam: 09/05/24 Exam# [id number] Ordering Dr: Cailin Sumner [id number] HISTORY: low back pain -- please do [...] 11:06 EDT Reading Location ID and State: [facility] / [place] Tel , Service support , CC: DON Calderon; Dr. Anastacio Lloyd MD Collection Manager: Signed Normal [facility] Orthopedic Visit Reporton Orthopedic Visit Report [facility] [address] [place] [address] [address] [place] [address] OFFICE VISIT Date of Service: 09/05/24 MR#: [id number] Acct: [id number] Name: PILAR PERSAUD Rep #: [id number] : 1955 Provider: Dr. Chi Black MD Age/Sex: 69/F Location: [facility] Status: Signed Intake Vital Signs 08/13/24 10:50 [...] 11/11/21 09/05/24 History (12 Hour Nasal Relief [place]) NOSE aspirin 81 mg tablet 81 mg [...] denosumab 60 mg/mL subcutaneous 60 mg subcut [id number] 08/25/24 09/05/24 History syringe (Prolia) Have you [...] by me, Dr. Chi Black MD 09/05/24 0755. Part of today???s visit was documented by [...] have been helpful. She has not received social worker palliative care in years. She is on Prolia for [...] Off vis, (more content not included)... Normal [facility] Spine Lumbar (Routine)on Spine Lumbar (Routine) [facility] [address] [place], [place] [address] Spine Lumbar (Routine) MR#: [id number] Acct: [id number] Name: PILAR PERSAUD Rep #: [id number] : 1955 F 69 From: Imani bee MD PCP: Dr. Anastacio Lloyd MD Status: [facility] Study: Spine Lumbar (Routine) Date of Exam: 09/01/24 Exam# [id number] Ordering Dr: Yadiel Quinn DO [id number] HISTORY: Low back pain, left leg pain. [...] 15:19 EDT Reading Location ID and State: [facility] / [place] Tel , Service support , CC: Dr. Anastacio Lloyd MD; Dr. Yadiel Quinn DO Collection Manager: Signed Normal [facility] Orthopedic Visit Reporton Orthopedic Visit Report [facility] [address] [place] [address] [address] [place] [id number] OFFICE VISIT Date of Service: 08/25/24 MR#: [id number] Acct: [id number] Name: PILAR PERSAUD Rep #: [id number] : 1955 Provider: Dr. Yadiel sykes DO Age/Sex: 69/F Location: [facility] Status: Signed Intake Vital Signs 02/18/24 11:06 [...] 11/11/21 08/25/24 History (12 Hour Nasal Relief [place]) NOSE aspirin 81 mg tablet 81 mg [...] denosumab 60 mg/mL subcutaneous 60 mg subcut [id number] 08/25/24 08/25/24 History syringe (Prolia) Have you [...] a year, she had another injection at [facility] and that wasnt helpful. She continues to [...] had for (more content not included)... Normal [facility] [employer] Office Visit Reporton 08-13-2024 [employer] Office Visit Report [facility] [address], [address] [place] [address] OFFICE VISIT Date of Service: 08/13/24 MR#: [id number] Acct: [id number] Name: PILAR PERSAUD Rep #: [id number] : 1955 Provider: DEBBIE basilio Age/Sex: 69/F Location: [facility] Status: Signed Intake Vital Signs 02/18/24 11:06 08/11/24 15:24 08/13/24 10:43 08/13/24 10:50 Height 5 ft 7 in 5 ft 7 in 5 ft 7 in 5 ft 7 in Weight: 174 lb 4 oz BMI 27.3 BP 124/82 H Intake Visit Reasons: pessary check Chief Complaint: Pessary check Almond Blancher Required: No Is patient in pain?: No [...] 11/11/21 08/13/24 History (12 Hour Nasal Relief [place]) NOSE aspirin 81 mg tablet 81 mg [...] menopausal: Yes Patient : No : No [facility] Medical History Marijuana use Restless legs Heartburn [...] and non (more content not included)... Normal [facility] Low Dose CT Lung Screeningon 06-06-[address] Lung Screening [facility] [address] [place] [id number] Lung Screening MR#: [id number] Acct: [id number] Name: PILAR PERSAUD Rep #: [id number] : 1955 F 68 From: Fidencio Phillips MD PCP: Dr. Anastacio Lloyd MD Status: [facility] Study: Low Dose CT Lung Screening Date of Exam: 06/06 Exam# [id number] Ordering Dr: Anastacio Lloyd MD [id number] EXAM: CT CHEST, LUNG CANCER SCREENING WITHOUT [...] EDT , CC: Dr. Anastacio Lloyd MD Collection Manager: Signed Normal [facility] Dexa Bone Density Studyon Dexa Bone Density Study [facility] [address] [place] [address] Dexa Bone Density Study MR#: [id number] Acct: [id number] Name: PILAR PERSAUD Rep #: [id number] : 1955 F 68 From: Raghavendra elias MD PCP: Dr. Anastacio Lloyd MD Status: [facility] Study: Dexa Bone Density Study Date of Exam: 06/04/24 Exam# [id number] Ordering Dr: Anastacio Lloyd MD [id number] STUDY: DUAL ENERGY X-RAY ABSORPTIOMETRY / DXA [...] EDT , CC: Dr. Anastacio Lloyd MD Collection Manager: Signed Normal [facility] CBC W/Diff, Automatedon 05-06 Absolute Lymph 1.38 X10 3/uL Normal 0.83-4.51 [facility] Comment on above: Order Comment: Order Date: 05/27/24Order Info: 0184- - CBCD Performed By: #### L 501.0900 #### [facility] [address] [place], [address] Absolute Neut 4.2 X10 3/uL Normal 2.0-7.7 [facility] Comment on above: Order Comment: Order Date: 05/27/24Order Info: 0184-1 - CBCD Performed By: #### L 501.0900 #### [facility] [address] [place], [address] Basophils/100 WBC (Bld) 0.6 % Normal 0-1 [facility] Comment on above: Order Comment: Order Date: 05/27/24Order Info: 0184-1 - CBCD Performed By: #### L 501.0900 #### [facility] [address] [place], [address] Eosinophils/100 WBC (Bld) 2.1 % Normal 0-5 [facility] Comment on above: Order Comment: Order Date: 05/27/24Order Info: 0184-1 - CBCD Performed By: #### L 501.0900 #### [facility] [address] [place], [address] Erythrocyte distribution width (RBC) [Ratio] 12.6 % Normal 11.6-14.6 [facility] Comment on above: Order Comment: Order Date: 05/27/24Order Info: 018- - CBCD Performed By: #### L 501.0900 #### [facility] [address] [place], [address] Hematocrit (Bld) [Volume fraction] 38.8 % Normal 37-47 [facility] Comment on above: Order Comment: Order Date: 05/27/24Order Info: 018- - CBCD Performed By: #### L 501.0900 #### [facility] [address] [place], [address] Hemoglobin (Bld) [Mass/Vol] 12.3 g/dL Normal 12.0-15.0 [facility] Comment on above: Order Comment: Order Date: 05/27/24Order Info: 018- - CBCD Performed By: #### L 501.0900 #### [facility] [address] [place], [address] IG% 0.300 Normal 0.0-0.9 [facility] Comment on above: Order Comment: Order Date: 05/27/24Order Info: 018- - CBCD Result Comment: IG% - Immature Granulocytes (promyelocytes, myelocytes and metamyelocytes) > 1% indicates that a LEFT SHIFT is Present. Performed By: #### L 501.0900 #### [facility] [address] [place], [address] Lymphocytes/100 WBC (Bld) 22.1 % Normal 19-41 [facility] Comment on above: Order Comment: Order Date: 05/27/24Order Info: 0184-1 - CBCD Performed By: #### L 501.0900 #### [facility] [address] [place], [address] MCH (RBC) [Entitic mass] 30.8 pg Normal 27.0-32.0 [facility] Comment on above: Order Comment: Order Date: 05/27/24Order Info: 4-1 - CBCD Performed By: #### L 501.0900 #### [facility] [address] [place], [address] MCHC (RBC) [Mass/Vol] 31.7 g/dL Low 32-36 [facility] Comment on above: Order Comment: Order Date: 05/27/24Order Info: 183- - CBCD Performed By: #### L 501.0900 #### [facility] [address] [place], [address] MCV (RBC) [Entitic vol] 97.2 fL Normal 81-99 [facility] Comment on above: Order Comment: Order Date: 05/27/24Order Info: 183- - CBCD Performed By: #### L 501.0900 #### [facility] [address] [place], [address] Monocytes/100 WBC (Bld) 8.3 % Normal 0-10 [facility] Comment on above: Order Comment: Order Date: 05/27/24Order Info: 018- - CBCD Performed By: #### L 501.0900 #### [facility] [address] [place], [address] Neutrophils/100 WBC (Bld) 66.6 % Normal 47-70 [facility] Comment on above: Order Comment: Order Date: 05/27/24Order Info: 018-1 - CBCD Performed By: #### L 501.0900 #### [facility] [address] [place], [address] Nucleated RBC (Bld) [#/Vol] 0 10*3/uL Normal 0-5 [facility] Comment on above: Order Comment: Order Date: 05/27/24Order Info: 0184-1 - CBCD Performed By: #### L 501.0900 #### [facility] [address] [place], [address] Platelet mean volume (Bld) [Entitic vol] 9.5 fL Normal 6.2-12.0 [facility] Comment on above: Order Comment: Order Date: 05/27/24Order Info: 0184-1 - CBCD Performed By: #### L 501.0900 #### [facility] [address] [place], [address] Platelets (Bld) [#/Vol] 272 10*3/uL Normal 150-450 [facility] Comment on above: Order Comment: Order Date: 05/27/24Order Info: 183- - CBCD Performed By: #### L 501.0900 #### [facility] [address] [place], [address] RBC (Bld) [#/Vol] 3.99 10*6/uL Low 4.2-5.4 [facility] Comment on above: Order Comment: Order Date: 05/27/24Order Info: 018- - CBCD Performed By: #### L 501.0900 #### [facility] [address] [place], [address] RDW SD 44.9 fl High 35.1-43.9 [facility] Comment on above: Order Comment: Order Date: 05/27/24Order Info: 0184-1 - CBCD Performed By: #### L 501.0900 #### [facility] [address] [place], [address] WBC (Bld) [#/Vol] 6.3 10*3/uL Normal 4.4-11.0 [facility] Comment on above: Order Comment: Order Date: 05/27/24Order Info: 018-1 - CBCD Performed By: #### L 501.0900 #### [facility] [address] [place], [address] Comprehensive Metabolic Prof ilon 05-27-2024 Albumin [Mass/Vol] 3.5 g/dL Normal 3.2-5.0 [facility] Comment on above: Order Comment: Order Date: 05/27/24Order Info: 0786-1 - CMPOrder Info: [id number] - LIPIDOrder Info: 2499-7 - TIBCOrder Info: 2498-4 - FEOrder Info: 2276-4 - FEROrder Info: 228-8 - FOLSN Performed By: #### L 501.0900 #### [facility] [address] [place], [address] Albumin/Globulin [Mass ratio] 1.1 {ratio} Normal 0.9-2.4 [facility] Comment on above: Order Comment: Order Date: 05/27/24Order Info: 86-1 - CMPOrder Info: [id number] - LIPIDOrder Info: 7 - TIBCOrder Info: 249-4 - FEOrder Info: 227-4 - FEROrder Info: 228-8 - FOLSN Performed By: #### L 501.0900 #### [facility] [address] [place], [address] ALK P 98 U/L Normal 45-117 [facility] Comment on above: Order Comment: Order Date: 05/27/24Order Info: 0786-1 - CMPOrder Info: [id number] - LIPIDOrder Info: 7 - TIBCOrder Info: 2498-4 - FEOrder Info: 2276-4 - FEROrder Info: 2284-8 - FOLSN Performed By: #### L 501.0900 #### [facility] [address] [place], [address] ALT [Catalytic activity/Vol] 29 U/L Normal 13-56 [facility] Comment on above: Order Comment: Order Date: 05/27/24Order Info: 0786-1 - CMPOrder Info: 05425-7 - LIPIDOrder Info: 7 - TIBCOrder Info: 2498-4 - FEOrder Info: 2276-4 - FEROrder Info: 228-8 - FOLSN Performed By: #### L 501.0900 #### [facility] [address] [place], [address] AST [Catalytic activity/Vol] 24 U/L Normal 15-37 [facility] Comment on above: Order Comment: Order Date: 05/27/24Order Info: 0786-1 - CMPOrder Info: 86069-2 - LIPIDOrder Info: 7 - TIBCOrder Info: 2498-4 - FEOrder Info: 2276-4 - FEROrder Info: 228-8 - FOLSN Performed By: #### L 501.0900 #### [facility] [address] [place], [address] Bilirubin [Mass/Vol] 0.50 mg/dL Normal 0.20-1.00 [facility] Comment on above: Order Comment: Order Date: 05/27/24Order Info: 0786-1 - CMPOrder Info: 98110-4 - LIPIDOrder Info: 2500-05 - TIBCOrder Info: 2498 - FEOrder Info: 2276-02 - FEROrder Info: 2283-8 - FOLSN Result Comment: For patients on eltrombopag therapy, use of Dimension [place] TBIL is not recommended. Performed By: #### L 501.0900 #### [facility] [address] [place], [address] BUN/CRE 19.1 RATIO Normal 10-20 [facility] Comment on above: Order Comment: Order Date: 05/27/24Order Info: 0786-1 - CMPOrder Info: [id number] - LIPIDOrder Info: 7 - TIBCOrder Info: 2498-4 - FEOrder Info: 2276-4 - FEROrder Info: 228-8 - FOLSN Performed By: #### L 501.0900 #### [facility] [address] [place], [address] CA,Total 9.7 mg/dL Normal 8.5-10.1 [facility] Comment on above: Order Comment: Order Date: 05/27/24Order Info: 0786-1 - CMPOrder Info: 40570-0 - LIPIDOrder Info: 2499-7 - TIBCOrder Info: 2498-4 - FEOrder Info: 2276-4 - FEROrder Info: 2284-8 - FOLSN Performed By: #### L 501.0900 #### [facility] [address] [place], [address] Chloride [Moles/Vol] 109 mmol/L High 98-107 [facility] Comment on above: Order Comment: Order Date: 05/27/24Order Info: 785-1 - CMPOrder Info: 28952-3 - LIPIDOrder Info: 7 - TIBCOrder Info: 2498-4 - FEOrder Info: 2276-4 - FEROrder Info: 228-8 - FOLSN Performed By: #### L 501.0900 #### [facility] [address] [place], [address] CO2 [Moles/Vol] 26.0 mmol/L Normal 21.0-32.0 [facility] Comment on above: Order Comment: Order Date: 05/27/24Order Info: 07- - CMPOrder Info: 55988-3 - LIPIDOrder Info: 7 - TIBCOrder Info: 2498-4 - FEOrder Info: 2276-4 - FEROrder Info: 2284-8 - FOLSN Performed By: #### L 501.0900 #### [facility] [address] [place], [address] Creatinine [Mass/Vol] 1.10 mg/dL High 0.55-1.02 [facility] Comment on above: Order Comment: Order Date: 05/27/24Order Info: 0786-1 - CMPOrder Info: 11484-1 - LIPIDOrder Info: 2500-7 - TIBCOrder Info: 2498-4 - FEOrder Info: 2276-4 - FEROrder Info: 2284-8 - FOLSN Result Comment: The validity of the calculated GFR GFRAA in patients over 70 years has not been determined. Clinical correlation is essential. Performed By: #### L 501.0900 #### [facility] [address] [place], [address] EST GFR - AA 63 mL/min Normal >60 [facility] Comment on above: Order Comment: Order Date: 05/27/24Order Info: 0786-1 - CMPOrder Info: 16834-3 - LIPIDOrder Info: 2500-7 - TIBCOrder Info: 2498-4 - FEOrder Info: 2276-4 - FEROrder Info: 228-8 - FOLSN Result Comment: Afri can Indonesian GFR Calc Performed By: #### L 501.0900 #### [facility] [address] [place], [address] GAP 7 Normal 5-15 [facility] Comment on above: Order Comment: Order Date: 05/27/24Order Info: 86-1 - CMPOrder Info: [id number] - LIPIDOrder Info: 2500-7 - TIBCOrder Info: 2498-4 - FEOrder Info: 2276-4 - FEROrder Info: 228-8 - FOLSN Performed By: #### L 501.0900 #### [facility] [address] [place], [address] GFR/1.73 sq M.predicted among non-blacks MDRD (S/P/Bld) [Vol rate/Area] 52 mL/min/{1.73_m2} Low >60 [facility] Comment on above: Order Comment: Order Date: 05/27/24Order Info: 0786-1 - CMPOrder Info: 05582-0 - LIPIDOrder Info: 2500-7 - TIBCOrder Info: 2498-4 - FEOrder Info: 2276-4 - FEROrder Info: 2284-8 - FOLSN Result Comment: Non- GFR Calc Performed By: #### L 501.0900 #### [facility] [address] [place], [address] Globulin (S) [Mass/Vol] 3.3 g/dL Normal 2.2-4.2 [facility] Comment on above: Order Comment: Order Date: 05/27/24Order Info: 0786-1 - CMPOrder Info: [id number] - LIPIDOrder Info: 2499-7 - TIBCOrder Info: 2498-4 - FEOrder Info: 2276-4 - FEROrder Info: 228-8 - FOLSN Performed By: #### L 501.0900 #### [facility] [address] [place], [address] Glucose [Mass/Vol] 96 mg/dL Normal 74-106 [facility] Comment on above: Order Comment: Order Date: 05/27/24Order Info: 785-1 - CMPOrder Info: 15168-1 - LIPIDOrder Info: 7 - TIBCOrder Info: 24984 - FEOrder Info: 2274 - FEROrder Info: 228-8 - FOLSN Performed By: #### L 501.0900 #### [facility] [address] [place], [address] Potassium [Moles/Vol] 3.9 mmol/L Normal 3.5-5.1 [facility] Comment on above: Order Comment: Order Date: 05/27/24Order Info: 0786-1 - CMPOrder Info: 97210-9 - LIPIDOrder Info: 7 - TIBCOrder Info: 2498-4 - FEOrder Info: 2276-4 - FEROrder Info: 228-8 - FOLSN Performed By: #### L 501.0900 #### [facility] [address] [place], [address] Sodium [Moles/Vol] 142 mmol/L Normal 136-145 [facility] Comment on above: Order Comment: Order Date: 05/27/24Order Info: 0786-1 - CMPOrder Info: 15269-2 - LIPIDOrder Info: 7 - TIBCOrder Info: 2498-4 - FEOrder Info: 2276-4 - FEROrder Info: 228-8 - FOLSN Performed By: #### L 501.0900 #### [facility] [address] [place], [address] T PROT 6.8 g/dL Normal 6.4-8.2 [facility] Comment on above: Order Comment: Order Date: 05/27/24Order Info: 0786-1 - CMPOrder Info: [id number] - LIPIDOrder Info: 2500-7 - TIBCOrder Info: 2498-4 - FEOrder Info: 2276-4 - FEROrder Info: 228-8 - FOLSN Performed By: #### L 501.0900 #### [facility] [address] [place], [address] Urea nitrogen [Mass/Vol] 21 mg/dL High 7-18 [facility] Comment on above: Order Comment: Order Date: 05/27/24Order Info: 0786-1 - CMPOrder Info: 43497-4 - LIPIDOrder Info: 2500-7 - TIBCOrder Info: 2498-4 - FEOrder Info: 2276-4 - FEROrder Info: 228-8 - FOLSN Performed By: #### L 501.0900 #### [facility] [address] [place], [address] Ferritinon 05-27-2024 Ferritin [Mass/Vol] 25 ng/mL Normal 8-252 [facility] Comment on above: Order Comment: Order Date: 05/27/24Order Info: 0786-1 - CMPOrder Info: 51409-3 - LIPIDOrder Info: 2500-7 - TIBCOrder Info: 2498-4 - FEOrder Info: 2276-4 - FEROrder Info: 228-8 - FOLSN Performed By: #### L 501.0900 #### [facility] [address] [place], [address] Folates, (Folic Acid)on 05-06 FOLATES 19.70 ng/mL Normal 3.1-55.4 [facility] Comment on above: Order Comment: Order Date: 05/27/24Order Info: 86-1 - CMPOrder Info: 88029-1 - LIPIDOrder Info: 2500-7 - TIBCOrder Info: 2498-4 - FEOrder Info: 2276-4 - FEROrder Info: 228-8 - FOLSN Performed By: #### L 501.0900 #### [facility] [address] [place], [address] Ironon 05-27-2024 Iron [Mass/Vol] 82 ug/dL Normal 50-170 [facility] Comment on above: Order Comment: Order Date: 05/27/24Order Info: 785- - CMPOrder Info: 67082-9 - LIPIDOrder Info: 2500-7 - TIBCOrder Info: 2498-4 - FEOrder Info: 2276-4 - FEROrder Info: 2288 - FOLSN Performed By: #### L 501.0900 #### [facility] [address] [place], [address] Iron Binding Capacity,Totalo n 05-27-2024 TIBC 305 ug/dL Normal 250-450 [facility] Comment on above: Order Comment: Order Date: 05/27/24Order Info: 785-11 - CMPOrder Info: 59259-0 - LIPIDOrder Info: 2500-7 - TIBCOrder Info: 2498-4 - FEOrder Info: 2276-4 - FEROrder Info: 228-8 - FOLSN Performed By: #### L 501.0900 #### [facility] [address] [place], [address] Lipid Profileon 05-27-2024 Cholesterol [Mass/Vol] 108 mg/dL Normal 200 [facility] Comment on above: Order Comment: Order Date: 05/27/24Order Info: 785-1 - CMPOrder Info: 15010-1 - LIPIDOrder Info: 2500-7 - TIBCOrder Info: 2498-4 - FEOrder Info: 2276-4 - FEROrder Info: 2284-8 - FOLSN Result Comment: <200 mg/dL Desirable 200-240 mg/dL Borderline >240 mg/dL High Risk Performed By: #### L 501.0900 #### [facility] [address] [place], [address] Cholesterol in HDL [Mass/Vol] 43 mg/dL Normal [facility] Comment on above: Order Comment: Order Date: 05/27/24Order Info: 86-1 - CMPOrder Info: 29363-7 - LIPIDOrder Info: 7 - TIBCOrder Info: 2498-4 - FEOrder Info: 2276-4 - FEROrder Info: 2283-8 - FOLSN Result Comment: The drugs N-Acetylcysteine and Metamizole may falsely depress this assay. Reference Range HDL <40 mg/dL Low HDL Cholesterol HDL >or= 60 mg/dL High HDL Cholesterol Performed By: #### L 501.0900 #### [facility] [address] [place], [address] Cholesterol in LDL [Mass/Vol] 44 mg/dL Normal 0-130 [facility] Comment on above: Order Comment: Order Date: 05/27/24Order Info: 86-1 - CMPOrder Info: [id number] - LIPIDOrder Info: 7 - TIBCOrder Info: 2498-4 - FEOrder Info: 2276-4 - FEROrder Info: 2283-8 - FOLSN Performed By: #### L 501.0900 #### [facility] [address] [place], [address] Cholesterol in VLDL [Mass/Vol] 21 mg/dL Normal 5-40 [facility] Comment on above: Order Comment: Order Date: 05/27/24Order Info: 86-1 - CMPOrder Info: 17577-6 - LIPIDOrder Info: 7 - TIBCOrder Info: [id number] - FEOrder Info: [id number] - FEROrder Info: [id number] - FOLSN Performed By: #### L [id number] #### [facility] [address] [place], [address] Triglyceride [Mass/Vol] 104 mg/dL Normal [facility] Comment on above: Order Comment: Order Date: 05/27/24Order Info: [id number] - CMPOrder Info: [id number] - LIPIDOrder Info: [id number] - TIBCOrder Info: [id number] - FEOrder Info: [id number] - FEROrder Info: [id number] - FOLSN Result Comment: The drugs N-Acetylcysteine and Metamizole may falsely depress this assay. Serum Triglycerides Reference Interval Normal <150 mg/dL Borderline high 150 - 199 mg/dL High 200 - 499 mg/dL Very High > or = 500 mg/dL Performed By: #### L [id number] #### [facility] [address] [place], [address] Protein+Creatinine Ratio,Uri neon 05-27-2024 PROT:CRE RATIO 226 mg/g CRE High 0-200 [facility] Comment on above: Performed By: #### L 400.0001, [id number] ####[facility] [address] [place], [address] PROTEIN,UR.RAN. < 6.0 Normal <11.9 [facility] Comment on above: Performed By: #### L 400.0001, [id number] ####[facility] [address] [place], [address] UR CREAT 24.30 mg/dL Normal NO RANGE EST. [facility] Comment on above: Performed By: #### L 400.0001, [id number] ####[facility] [address] [place], [address] Urinalysis, Completeon 05-27 BACTERIA RARE Normal None Seen [facility] Comment on above: Order Comment: CLEAN CATCH Performed By: #### L 400.0001, [id number] ####[facility] [address] [place], [address] EPI,SQUAMOUS 0-5 SEEN Normal 5-10 [facility] Comment on above: Order Comment: CLEAN CATCH Performed By: #### L 400.0001, [id number] ####[facility] [address] [place], [address] Mucus Ql (Urine sed) 0 SEEN Normal [facility] Comment on above: Order Comment: CLEAN CATCH Performed By: #### L 400.0001, [id number] ####[facility] [address] [place], [address] RBC 0 SEEN Normal 0-5 [facility] Comment on above: Order Comment: CLEAN CATCH Performed By: #### L 400.0001, [id number] ####[facility] [address] [place], [address] WBC 0 SEEN Normal 0-5 [facility] Comment on above: Order Comment: CLEAN CATCH Performed By: #### L 400.0001, [id number] ####[facility] [address] [place], [address] Vitamin B12on 05-27-2024 Cobalamin (Vitamin B12) [Mass/Vol] 595 pg/mL Normal 211-911 [facility] Comment on above: Order Comment: Order Date: 05/27/24Order Info: [id number] - [id number] Info: [id number] - VITD25 Performed By: #### L [id number] #### [facility] [address] [place], [address] Vitamin D,25 Hydroxyon 05-27 Vitamin D 25-OH 89.6 ng/mL Normal [facility] Comment on above: Order Comment: Order Date: 05/27/24Order Info: [id number] - [id number] Info: [id number] - VITD25 Result Comment: Nona min D 25(OH) Status Range Deficiency <20 ng/mL (50nmol/L) Insufficiency 20 - 30 ng/mL (50 - 75 nmol/L) Sufficiency 30 - 100 ng/mL (75 - 250 nmol/L) Toxicity >100 ng/mL (>250 nmol/L) Performed By: #### L [id number] #### [facility] [address] [place], [address] SCRN MAMM (CAD)W/CELIA BILATo n 05-26-2024 SCRN MAMM (CAD)W/CELIA BILAT [facility] [address] [place] [address] SCRN MAMM (CAD)W/CELIA BILAT MR#: [id number] Acct: [id number] Name: PILAR PERSAUD Rep #: [id number] : 1955 F 68 From: Raghavendra elias MD PCP: Dr. Anastacio Lloyd MD Status: [facility] Study: SCRN MAMM (CAD)W/CELIA BILAT Date of Exam: 05/06 12/29 Exam# [id number] Ordering Dr: Maribel Delgado MANAGER PROCESS IMPROVEMENT MANAGER PROCESS IMPROVEMENT -C [id number] MAMMOGRAPHY - BILATERAL SCREENING REASON FOR EXAM: [...] delay biopsy of a clinically suspicious abnormality. [id number] Electronically Signed: Raghavendra Mobley MD at 12:46 EDT , CC: DEBBIE Delgado; Dr. Anastacio Lloyd MD Collection Manager: Signed Normal [facility] Culture, urineOrdered By: Scot Delgado on 02-18-2024 Bacteria identified Cx Nom (U) Klebsiella pneumoniae sp pneum [facility] - Chemistry and C hemistry - challengeon 02-18-2024 Bilirubin Ql (U) Negative [facility] Glucose Ql (U) Negative [facility] Ketones Ql (U) Negative [facility] pH (U) 5.0 [pH] [facility] Specific gravity (U) [Rel density] 1.010 [facility] Urobilinogen (U) [Mass/Vol] Negative [facility] - Hematology and Cell countson 02-18-2024 Hemoglobin Ql (U) Moderate [facility] - Specimen inform ationon 02-18-2024 Clarity (U) Hazy [facility] Color (U) YELLOW [facility] - Urinalysison Nitrite Ql (U) Negative [facility] Protein Ql (U) Negative [facility] No Panel Informationon 02-17 Urine Leukocytes Positive [facility] Urine Non-Hemolyzed Blood Negative [facility] Culture, urineOrdered By: Scot Delgado on 01-01-2024 Bacteria identified Cx Nom (U) Klebsiella pneumoniae sp pneum [facility] Bacteria identified Cx Nom (U) Klebsiella pneumoniae sp pneum [facility] - Chemistry and C hemistry - challengeon 01-01-2024 Bilirubin Ql (U) Negative [facility] Glucose Ql (U) Negative [facility] Ketones Ql (U) Negative [facility] pH (U) 5.0 [pH] [facility] Specific gravity (U) [Rel density] 1.010 [facility] Urobilinogen (U) [Mass/Vol] Negative [facility] - Hematology and Cell countson 01-01-2024 Hemoglobin Ql (U) Moderate [facility] - Specimen inform ationon 01-01-2024 Clarity (U) Cloudy [facility] Color (U) YELLOW [facility] - Urinalysison Nitrite Ql (U) Negative [facility] Protein Ql (U) Negative [facility] No Panel Informationon 01-01 Urine Leukocytes Positive [facility] Urine Non-Hemolyzed Blood Negative [facility] Absolute lymphocyte countOrd ered By: Anastacio Lloyd on 11-20-2023 Lymphocytes Auto (Unsp spec) [#/Vol] 1.70 10*3/uL 0.83-4.51 [facility] Automated lymphocyte count a s percentage of total leukocytesOrdered By: Anastacio Lloyd on 11-20-2023 Lymphocytes/100 WBC Auto (Unsp spec) 29.9 % 19-41 [facility] Basophil percentageOrdered B y: Anastacio Lloyd on 11-20-2023 Basophil percentage 0-5 SEEN /hpf 0-5 [facility] Basophils/100 WBC (Bld) 0.9 % 0-1 [facility] Bilirubin [Mass/Vol] 0.50 mg/dL 0.20-1.00 [facility] Comment on above: For patients on eltr ombopag therapy, use of [place] TBIL is not recommended. Chloride [Moles/Vol] 110 mmol/L 98-107 [facility] Cholesterol [Mass/Vol] 118 mg/dL <200 [facility] Comment on above: <200 mg/dL Desirable 200-240 mg/dL Borderline >240 mg/dL High Risk Eosinophils/100 WBC (Bld) 2.5 % 0-5 [facility] Glucose [Mass/Vol] 74 mg/dL 74-106 [facility] Hemoglobin (Bld) [Mass/Vol] 13.0 g/dL 12.0-15.0 [facility] Monocytes/100 WBC (Bld) 7.7 % 0-10 [facility] Neutrophils (Bld) [#/Vol] 3.3 10*3/uL 2.0-7.7 [facility] Neutrophils/100 WBC (Bld) 58.8 % 47-70 [facility] Potassium [Moles/Vol] 4.4 mmol/L 3.5-5.1 [facility] Protein [Mass/Vol] 7.2 g/dL 6.4-8.2 [facility] Sodium [Moles/Vol] 142 mmol/L 136-145 [facility] Triglyceride [Mass/Vol] 99 mg/dL <199 [facility] Comment on above: The drugs N-Acetylcy steine and Metamizole may falsely depress this assay.Serum Triglycerides Reference Interval Normal <150 mg/dL Borderline high 150 - 199 mg/dL High 200 - 499 mg/dL Very High > or = 500 mg/dL WBC (Bld) [#/Vol] 5.7 10*3/uL 4.4-11.0 [facility] Bilirubin Test strip Ql (U)O rdered By: Anastacio Lloyd on 11-20-2023 Bilirubin Ql (U) Negative Negative [facility] Determination of erythrocyte mean corpuscular volume (MCV)Ordered By: Anastacio Lloyd on 11-20-2023 MCV (RBC) [Entitic vol] 97.8 fL 81-99 [facility] Erythrocyte distribution wid th ratioOrdered By: Anastacio Lloyd on 11-20-2023 Erythrocyte distribution width (RBC) [Ratio] 12.3 % 11.6-14.6 [facility] Erythrocyte distribution wid th standard deviationOrdered By: Anastacio Lloyd on 11-20-2023 Erythrocyte distribution width (RBC) [Entitic vol] 44.2 fL 35.1-43.9 [facility] Hematocrit Auto (Bld) [Volum e fraction]Ordered By: Anastacio Lloyd on 11-20-2023 Hematocrit (Bld) [Volume fraction] 39.1 % 37-47 [facility] High density lipoprotein (HD L) measurementOrdered By: Anastacio Lloyd on 11-20-2023 Cholesterol in HDL (Body fld) [Mass/Vol] 46 mg/dL >40 [facility] Comment on above: The drugs N-Acetylcy steine and Metamizole may falsely depress this assay. Reference Range HDL <40 mg/dL Low HDL Cholesterol HDL >or= 60 mg/dL High HDL Cholesterol Immature granulocytes/100 WB C Auto (Bld)Ordered By: Anastacio Lloyd on 11-20-2023 Immature granulocytes/100 WBC (Bld) 0.200 % 0.0-0.9 [facility] Comment on above: IG% - Immature Granu locytes (promyelocytes, myelocytes and metamyelocytes) > 1% indicates that a LEFT SHIFT is Present. Ketones Test strip Ql (U)Ord ered By: Anastacio Lloyd on 11-20-2023 Ketones Ql (U) Negative Negative [facility] - Chemistry and C hemistry - challengeOrdered By: Anastacio Lloyd on 11-20-2023 Albumin/Globulin [Mass ratio] 1.1 {ratio} 0.9-2.4 [facility] ALP [Catalytic activity/Vol] 117 U/L 45-117 [facility] ALT [Catalytic activity/Vol] 23 U/L 13-56 [facility] CO2 [Moles/Vol] 27.0 mmol/L 21.0-32.0 [facility] Globulin (S) [Mass/Vol] 3.4 g/dL 2.2-4.2 [facility] Urea nitrogen/Creatinine [Mass ratio] 18.2 mg/mg 10-20 [facility] - Hematology and Cell countsOrdered By: Anastacio Lloyd on 11-20-2023 MCH (RBC) [Entitic mass] 32.5 pg 27.0-32.0 [facility] MCHC (RBC) [Mass/Vol] 33.2 g/dL 32-36 [facility] Nucleated RBC/100 WBC (Bld) [Ratio] 0 % 0-5 [facility] Platelets (Bld) [#/Vol] 293 10*3/uL 150-450 [facility] Low density lipoprotein (LDL ) cholesterol measurementOrdered By: Anastacio Lloyd on 11-20-2023 Cholesterol in LDL (Body fld) [Moles/Vol] 52 mg/dL 0-130 [facility] Mucus LM Ql (Urine sed)Order ed By: Anastacio Lloyd on 11-20-2023 Mucus Ql (Urine sed) 0 SEEN /hpf [facility] Nitrite Test strip Ql (U)Ord ered By: Anastacio Lloyd on 11-20-2023 Nitrite Ql (U) Positive Negative [facility] No Panel InformationOrdered By: Anastacio Lloyd on 11-20-2023 Estimated GFR (MDRD) Amer 64 mL/min >60 [facility] Comment on above: GFR Calc Estimated GFR (MDRD) Non-Af Amer 52 mL/min >60 [facility] Comment on above: Non- GFR Calc Urine RBC 0 SEEN /hpf 0-5 [facility] Vitamin D 25-Hydroxy 97.7 ng/mL [facility] Comment on above: Vitamin D 25(OH) Sta tus Range Deficiency <20 ng/mL (50nmol/L) Insufficiency 20 - 30 ng/mL (50 - 75 nmol/L) Sufficiency 30 - 100 ng/mL (75 - 250 nmol/L) Toxicity >100 ng/mL (>250 nmol/L) Platelet mean volume Harsh-Ec ker (Bld) [Entitic vol]Ordered By: Anastacio Lloyd on 11-20-2023 Platelet mean volume (Bld) [Entitic vol] 9.5 fL 6.2-12.0 [facility] Protein Test strip Ql (U)Ord ered By: Anastacio Lloyd on 11-20-2023 Protein Ql (U) Negative Negative [facility] RBC Auto (Bld) [#/Vol]Ordere d By: Anastacio Lloyd on 11-20-2023 RBC (Bld) [#/Vol] 4.00 10*6/uL 4.2-5.[address] [facility] Serum or plasma calcium filomena urement (mass/volume)Ordered By: Anastacio Lloyd on 11-20-2023 Calcium [Mass/Vol] 9.6 mg/dL 8.5-10.1 [facility] Serum or plasma creatinine m easurement (mass/volume)Ordered By: Anastacio Lloyd on 11-20-2023 Creatinine [Mass/Vol] 1.10 mg/dL 0.55-1.02 [facility] Comment on above: The validity of the calculated GFR & GFRAA in patients over 70 years has not been determined. Clinical correlation is essential. Serum or plasma urea nitroge n measurement (mass/volume)Ordered By: Anastacio Lloyd on 11-20-2023 Urea nitrogen [Mass/Vol] 20 mg/dL 7-18 [facility] Serum or plasma uric acid me asurement (mass/volume)Ordered By: Anastacio Lloyd on 11-20-2023 Urate [Mass/Vol] 2.8 mg/dL 2.6-6.0 [facility] Comment on above: The drugs N-Acetylcy steine and Metamizole may falsely depress this assay. Squamous epithelial cells de tection in urine sediment by light microscopyOrdered By: Anastacio Lloyd on 11-20-2023 Epithelial cells.squamous LM Ql (Urine sed) 0-5 SEEN /hpf 5-10 [facility] Thin prep Papanicolaou smear with manual screeningOrdered By: Anastacio Lloyd on 11-20-2023 Thin prep Papanicolaou smear with manual screening 3.8 g/dL 3.2-5.0 [facility] Thin prep Papanicolaou smear with manual screening 24 U/L 15-37 [facility] Thin prep Papanicolaou smear with manual screening 5 5-15 [facility] Urine blood detectionOrdered By: Anastacio Lloyd on 11-20-2023 RBC Ql (U) 25 /ul Negative [facility] Urine clarityOrdered By: Warner Lloyd on 11-20-2023 Clarity (U) Sl. Cloudy Clear [facility] Urine color determinationOrd ered By: Anastacio Lloyd on 11-20-2023 Color (U) Yellow Yellow [facility] Urine glucose detectionOrder ed By: Anastacio Lloyd on 11-20-2023 Glucose Ql (U) Normal mg/dl Normal [facility] Urine leukocyte esterase det ection by dipstickOrdered By: Anastacio Lloyd on 11-20-2023 Leukocyte esterase Test strip Ql (U) 25 /ul Negative [facility] Urine pHOrdered By: Anastacio ayala on 11-20-2023 pH (U) 5.0 [pH] 5.0 - 8.0 [facility] Urine sediment bacteria coun t by microscopy (number/high power field)Ordered By: Anastacio Lloyd on 11-20-2023 Bacteria LM.HPF (Urine sed) [#/Area] 2 /[HPF] None Seen [facility] Urine specific gravity measu rementOrdered By: Anastacio Lloyd on 11-20-2023 Specific gravity (U) [Rel density] 1.020 1.002-1.030 [facility] Urine urobilinogen measureme ntOrdered By: Anastacio Lloyd on 11-20-2023 Urobilinogen Ql (U) Normal mg/dl Normal [facility] Very low density lipoprotein (VLDL) cholesterol measurementOrdered By: Anastacio Lloyd on 11-20-2023 Cholesterol in VLDL Calc [Moles/Vol] 20 mg/dL 5-40 [facility] Basophil percentageOrdered B y: Anastacio Lloyd on 06-21-2023 Chloride [Moles/Vol] 111 mmol/L 98-107 [facility] Glucose [Mass/Vol] 107 mg/dL 74-106 [facility] Comment on above: Fasting Glucose resu lt from 100 to 125 mg/dL suggests IMPAIRED HOMEOSTASIS per A.D.A. criteria. Potassium [Moles/Vol] 3.8 mmol/L 3.5-5.1 [facility] Sodium [Moles/Vol] 142 mmol/L 136-145 [facility] Laboratory - Chemistry and C hemistry - challengeOrdered By: Anastacio Lloyd on 06-21-2023 CO2 [Moles/Vol] 27.0 mmol/L 21.0-32.0 [facility] Urea nitrogen/Creatinine [Mass ratio] 21.4 mg/mg 10-20 [facility] No Panel InformationOrdered By: Anastacio Lloyd on 06-21-2023 Estimated GFR (MDRD) Amer 69 mL/min >60 [facility] Comment on above: GFR Calc Estimated GFR (MDRD) Non-Af Amer 57 mL/min >60 [facility] Comment on above: Non- GFR Calc Serum or plasma calcium filomena urement (mass/volume)Ordered By: Anastacio Lloyd on 06-21-2023 Calcium [Mass/Vol] 9.2 mg/dL 8.5-10.1 [facility] Serum or plasma creatinine m easurement (mass/volume)Ordered By: Anastacio Lloyd on 06-21-2023 Creatinine [Mass/Vol] 1.03 mg/dL 0.55-1.02 [facility] Comment on above: The validity of the calculated GFR & GFRAA in patients over 70 years has not been determined. Clinical correlation is essential. Serum or plasma urea nitroge n measurement (mass/volume)Ordered By: Anastacio Lloyd on 06-21-2023 Urea nitrogen [Mass/Vol] 22 mg/dL 7-18 [facility] Thin prep Papanicolaou smear with manual screeningOrdered By: Anastacio Lloyd on 06-21-2023 Thin prep Papanicolaou smear with manual screening 4 5-15 [facility] Basophil percentageOrdered B y: Anastacio Lloyd on 05-23-2023 Bilirubin [Mass/Vol] 0.20 mg/dL 0.20-1.00 [facility] Comment on above: For patients on eltr ombopag therapy, use of Dim[place] TBIL is not recommended. Chloride [Moles/Vol] 107 mmol/L 98-107 [facility] Glucose [Mass/Vol] 81 mg/dL 74-106 [facility] Potassium [Moles/Vol] 4.2 mmol/L 3.5-5.1 [facility] Protein [Mass/Vol] 7.2 g/dL 6.4-8.2 [facility] Sodium [Moles/Vol] 141 mmol/L 136-145 [facility] Laboratory - Chemistry and C hemistry - challengeOrdered By: Anastacio Lloyd on 05-23-2023 ALP [Catalytic activity/Vol] 116 U/L 45-117 [facility] ALT [Catalytic activity/Vol] 28 U/L 13-56 [facility] CO2 [Moles/Vol] 27.0 mmol/L 21.0-32.0 [facility] Globulin (S) [Mass/Vol] 3.3 g/dL 2.2-4.2 [facility] Urea nitrogen/Creatinine [Mass ratio] 22.1 mg/mg 10-20 [facility] No Panel InformationOrdered By: Anastacio Lloyd on 05-23-2023 Estimated GFR (MDRD) Amer 68 mL/min >60 [facility] Comment on above: GFR Calc Estimated GFR (MDRD) Non-Af Amer 56 mL/min >60 [facility] Comment on above: Non- GFR Calc Vitamin D 25-Hydroxy 89.0 ng/mL [facility] Comment on above: Vitamin D 25(OH) Sta tus Range Deficiency <20 ng/mL (50nmol/L) Insufficiency 20 - 30 ng/mL (50 - 75 nmol/L) Sufficiency 30 - 100 ng/mL (75 - 250 nmol/L) Toxicity >100 ng/mL (>250 nmol/L) Serum or plasma albumin filomena urement (mass/volume)Ordered By: Anastacio Lloyd on 05-23-2023 Albumin [Mass/Vol] 3.9 g/dL 3.2-5.0 [facility] Serum or plasma albumin/glob ulin mass ratioOrdered By: Anastacio Lloyd on 05-23-2023 Albumin/Globulin [Mass ratio] 1.2 {ratio} 0.9-2.4 [facility] Serum or plasma calcium filomena urement (mass/volume)Ordered By: Anastacio Lloyd on 05-23-2023 Calcium [Mass/Vol] 9.7 mg/dL 8.5-10.1 [facility] Serum or plasma creatinine m easurement (mass/volume)Ordered By: Anastacio Lloyd on 05-23-2023 Creatinine [Mass/Vol] 1.04 mg/dL 0.55-1.02 [facility] Comment on above: The validity of the calculated GFR & GFRAA in patients over 70 years has not been determined. Clinical correlation is essential. Serum or plasma urea nitroge n measurement (mass/volume)Ordered By: Anastacio Lloyd on 05-23-2023 Urea nitrogen [Mass/Vol] 23 mg/dL 7-18 [facility] Thin prep Papanicolaou smear with manual screeningOrdered By: Anastacio Lloyd on 05-23-2023 Thin prep Papanicolaou smear with manual screening 25 U/L 15-37 [facility] Thin prep Papanicolaou smear with manual screening 7 5-15 [facility] Absolute lymphocyte countOrd ered By: Dr. Lloyd on 08-08-2022 Lymphocytes Auto (Unsp spec) [#/Vol] 2.07 10*3/uL 0.83-4.51 [facility] Basophil percentageOrdered B y: Dr. Lloyd on 08-08-2022 Basophil percentage 0-5 SEEN /hpf 0-5 [facility] Basophils/100 WBC (Bld) 1.0 % 0-1 [facility] Bilirubin [Mass/Vol] 0.30 mg/dL 0.20-1.00 [facility] Comment on above: For patients on eltr ombopag therapy, use of [place] TBIL is not recommended. Chloride [Moles/Vol] 109 mmol/L 98-107 [facility] Eosinophils/100 WBC (Bld) 3.2 % 0-5 [facility] Glucose [Mass/Vol] 85 mg/dL 74-106 [facility] Neutrophils (Bld) [#/Vol] 3.1 10*3/uL 2.0-7.7 [facility] Neutrophils/100 WBC (Bld) 52.0 % 47-70 [facility] Potassium [Moles/Vol] 4.2 mmol/L 3.5-5.1 [facility] Protein [Mass/Vol] 7.3 g/dL 6.4-8.2 [facility] Sodium [Moles/Vol] 144 mmol/L 136-145 [facility] WBC (Bld) [#/Vol] 5.9 10*3/uL 4.4-11.0 [facility] Bilirubin Test strip Ql (U)O rdered By: Dr. Lloyd on 08-08-2022 Bilirubin Ql (U) Negative Negative [facility] Blood erythrocytes count (nu mber/volume)Ordered By: Dr. Lloyd on 08-08-2022 RBC (Bld) [#/Vol] 4.15 10*6/uL 4.2-5.4 [facility] Blood hemoglobin measurement (mass/volume)Ordered By: Dr. Lloyd on 08-08-2022 Hemoglobin (Bld) [Mass/Vol] 12.8 g/dL 12.0-15.0 [facility] Blood lymphocytes/100 leukoc ytesOrdered By: Dr. Lloyd on 08-08-2022 Lymphocytes/100 WBC (Bld) 35.0 % 19-41 [facility] Blood monocytes/100 leukocyt esOrdered By: Dr. Lloyd on 08-08-2022 Monocytes/100 WBC (Bld) 8.5 % 0-10 [facility] Blood platelet mean volumeOr dered By: Dr. Lloyd on 08-08-2022 Platelet mean volume (Bld) [Entitic vol] 9.3 fL 6.2-12.0 [facility] Determination of erythrocyte mean corpuscular volume (MCV)Ordered By: Dr. Lloyd on 08-08-2022 MCV (RBC) [Entitic vol] 96.1 fL 81-99 [facility] Hematocrit Auto (Bld) [Volum e fraction]Ordered By: Dr. Lloyd on 08-08-2022 Hematocrit (Bld) [Volume fraction] 39.9 % 37-47 [facility] Ketones Test strip Ql (U)Ord ered By: Dr. Lloyd on 08-08-2022 Ketones Ql (U) Negative Negative [facility] Laboratory - Chemistry and C hemistry - challengeOrdered By: Dr. Lloyd on 08-08-2022 ALP [Catalytic activity/Vol] 113 U/L 45-117 [facility] ALT [Catalytic activity/Vol] 27 U/L 13-56 [facility] CO2 [Moles/Vol] 30.0 mmol/L 21.0-32.0 [facility] Globulin (S) [Mass/Vol] 3.6 g/dL 2.2-4.2 [facility] Urea nitrogen/Creatinine [Mass ratio] 22.2 mg/mg 10-20 [facility] Laboratory - Hematology and Cell countsOrdered By: Dr. lLoyd on 08-08-2022 Erythrocyte distribution width (RBC) [Entitic vol] 46.6 fL 35.1-43.9 [facility] Erythrocyte distribution width (RBC) [Ratio] 13.2 % 11.6-14.6 [facility] Immature granulocytes/100 WBC (Bld) 0.300 % 0.0-0.9 [facility] Comment on above: IG% - Immature Granu locytes (promyelocytes, myelocytes and metamyelocytes) > 1% indicates that a LEFT SHIFT is Present. MCH (RBC) [Entitic mass] 30.8 pg 27.0-32.0 [facility] Nucleated RBC/100 WBC (Bld) [Ratio] 0 % 0-5 [facility] MCHC Auto (RBC) [Mass/Vol]Or dered By: Dr. Lloyd on 08-08-2022 MCHC (RBC) [Mass/Vol] 32.1 g/dL 32-36 [facility] Mucus LM Ql (Urine sed)Order ed By: Dr. Lloyd on 08-08-2022 Mucus Ql (Urine sed) 0 SEEN /hpf [facility] Nitrite Test strip Ql (U)Ord ered By: Dr. Lloyd on 08-08-2022 Nitrite Ql (U) Negative Negative [facility] No Panel InformationOrdered By: Dr. Lloyd on 08-08-2022 Estimated GFR (MDRD) Amer 76 mL/min >60 [facility] Comment on above: GFR Calc Estimated GFR (MDRD) Non-Af Amer 63 mL/min >60 [facility] Comment on above: Non- GFR Calc Vitamin D 25-Hydroxy 79.5 ng/mL [facility] Comment on above: Vitamin D 25(OH) Sta tus Range Deficiency <20 ng/mL (50nmol/L) Insufficiency 20 - 30 ng/mL (50 - 75 nmol/L) Sufficiency 30 - 100 ng/mL (75 - 250 nmol/L) Toxicity >100 ng/mL (>250 nmol/L) Platelets bldOrdered By: Dr. Lloyd on 08-08-2022 Platelets (Bld) [#/Vol] 304 10*3/uL 150-450 [facility] Protein Test strip Ql (U)Ord ered By: Dr. Lloyd on 08-08-2022 Protein Ql (U) Negative Negative [facility] Serum or plasma albumin filomena urement (mass/volume)Ordered By: Dr. Lloyd on 08-08-2022 Albumin [Mass/Vol] 3.7 g/dL 3.2-5.0 [facility] Serum or plasma albumin/glob ulin mass ratioOrdered By: Dr. Lloyd on 08-08-2022 Albumin/Globulin [Mass ratio] 1.0 {ratio} 0.9-2.4 [facility] Serum or plasma calcium filomena urement (mass/volume)Ordered By: Dr. Lloyd on 08-08-2022 Calcium [Mass/Vol] 9.7 mg/dL 8.5-10.1 [facility] Serum or plasma creatinine m easurement (mass/volume)Ordered By: Dr. Lloyd on 08-08-2022 Creatinine [Mass/Vol] 0.95 mg/dL 0.55-1.02 [facility] Comment on above: The validity of the calculated GFR & GFRAA in patients over 70 years has not been determined. Clinical correlation is essential. Serum or plasma urea nitroge n measurement (mass/volume)Ordered By: Dr. Lloyd on 08-08-2022 Urea nitrogen [Mass/Vol] 21 mg/dL 7-18 [facility] Squamous epithelial cells de tection in urine sediment by light microscopyOrdered By: Dr. Lloyd on 08-08-2022 Epithelial cells.squamous LM Ql (Urine sed) 5-10 SEEN /hpf 5-10 [facility] Thin prep Papanicolaou smear with manual screeningOrdered By: Dr. Lloyd on 08-08-2022 Thin prep Papanicolaou smear with manual screening 18 U/L 15-37 [facility] Thin prep Papanicolaou smear with manual screening 5 5-15 [facility] Urine blood detectionOrdered By: Dr. Lloyd on 08-08-2022 RBC Ql (U) 10 /ul Negative [facility] RBC Ql (U) 0-5 SEEN /hpf 0-5 [facility] Urine clarityOrdered By: Dr. Lloyd on 08-08-2022 Clarity (U) Clear Clear [facility] Urine color determinationOrd ered By: Dr. Lloyd on 08-08-2022 Color (U) Yellow Yellow [facility] Urine glucose detectionOrder ed By: Dr. Lloyd on 08-08-2022 Glucose Ql (U) Normal mg/dl Normal [facility] Urine leukocyte esterase det ection by dipstickOrdered By: Dr. Lloyd on 08-08-2022 Leukocyte esterase Test strip Ql (U) 25 /ul Negative [facility] Urine pHOrdered By: Dr. Demetrio cason on 08-08-2022 pH (U) 6.0 [pH] 5.0 - 8.0 [facility] Urine sediment bacteria coun t by microscopy (number/high power field)Ordered By: Dr. Lloyd on 08-08-2022 Bacteria LM.HPF (Urine sed) [#/Area] 1 /[HPF] None Seen [facility] Urine specific gravity measu rementOrdered By: Dr. Lloyd on 08-08-2022 Specific gravity (U) [Rel density] 1.020 1.002-1.030 [facility] Urobilinogen Auto test strip Ql (U)Ordered By: Dr. Lloyd on 08-08-2022 Urobilinogen Ql (U) Normal mg/dl Normal [facility] Basophil percentageon 2021 Chloride [Moles/Vol] 109 mmol/L 98-107 [facility] Work Phone: Glucose [Mass/Vol] 133 mg/dL 74-106 [facility] Work Phone: Comment on above: Fasting Glucose resu lt greater than or equal to 126 mg/dL suggests DIABETES MELLITUS per A.D.A. criteria. Potassium [Moles/Vol] 3.9 mmol/L 3.5-5.1 [facility] Work Phone: Sodium [Moles/Vol] 140 mmol/L 136-145 [facility] Work Phone: WBC (Bld) [#/Vol] 5.5 10*3/uL 4.4-11.0 [facility] Work Phone: [phone] Blood erythrocytes count (nu mber/volume)on 04-06-2022 RBC (Bld) [#/Vol] 3.91 10*6/uL 4.2-5.4 [facility] Work Phone: Blood hemoglobin measurement (mass/volume)on 04-06-2022 Hemoglobin (Bld) [Mass/Vol] 12.0 g/dL 12.0-15.0 [facility] Work Phone: Blood platelet mean volumeon 04-06-2022 Platelet mean volume (Bld) [Entitic vol] 9.4 fL 6.2-12.0 [facility] Work Phone: Determination of erythrocyte mean corpuscular volume (MCV)on 04-06-2022 MCV (RBC) [Entitic vol] 96.7 fL 81-99 [facility] Work Phone: Hematocrit Auto (Bld) [Volum e fraction]on 04-06-2022 Hematocrit (Bld) [Volume fraction] 37.8 % 37-47 [facility] Work Phone: Laboratory - Chemistry and C hemistry - challengeon 04-06-2022 CO2 [Moles/Vol] 27.0 mmol/L 21.0-32.0 [facility] Work Phone: Urea nitrogen/Creatinine [Mass ratio] 26.5 mg/mg 10-20 [facility] Work Phone: Laboratory - Hematology and Cell countson 04-06-2022 Erythrocyte distribution width (RBC) [Entitic vol] 43.7 fL 35.1-43.9 [facility] Work Phone: Erythrocyte distribution width (RBC) [Ratio] 12.4 % 11.6-14.6 [facility] Work Phone: MCH (RBC) [Entitic mass] 30.7 pg 27.0-32.0 [facility] Work Phone: MCHC Auto (RBC) [Mass/Vol]on 04-06-2022 MCHC (RBC) [Mass/Vol] 31.7 g/dL 32-36 [facility] Work Phone: No Panel Informationon 04-06 Estimated GFR (MDRD) Amer 80 mL/min >60 [facility] Work Phone: Comment on above: GFR Calc Estimated GFR (MDRD) Non-Af Amer 66 mL/min >60 [facility] Work Phone: Comment on above: Non- GFR Calc Platelets bldon 04-06-2022 Platelets (Bld) [#/Vol] 265 10*3/uL 150-450 [facility] Work Phone: Serum or plasma calcium filomena urement (mass/volume)on 04-06-2022 Calcium [Mass/Vol] 9.3 mg/dL 8.5-10.1 [facility] Work Phone: Serum or plasma creatinine m easurement (mass/volume)on 04-06-2022 Creatinine [Mass/Vol] 0.91 mg/dL 0.55-1.02 [facility] Work Phone: Comment on above: The validity of the calculated GFR & GFRAA in patients over 70 years has not been determined. Clinical correlation is essential. Serum or plasma urea nitroge n measurement (mass/volume)on 04-06-2022 Urea nitrogen [Mass/Vol] 24 mg/dL 7-18 [facility] Work Phone: Thin prep Papanicolaou smear with manual screeningon 04-06-2022 Thin prep Papanicolaou smear with manual screening 4 5-15 [facility] Work Phone: Absolute lymphocyte counton 01-25-2022 Lymphocytes Auto (Unsp spec) [#/Vol] 1.63 10*3/uL 0.83-4.51 [facility] Work Phone: Basophil percentageon 2021 Basophils/100 WBC (Bld) 1.1 % 0-1 [facility] Work Phone: Bilirubin [Mass/Vol] 0.30 mg/dL 0.20-1.00 [facility] Work Phone: Comment on above: For patients on eltr ombopag therapy, use of Dimension [place] TBIL is not recommended. Chloride [Moles/Vol] 106 mmol/L 98-107 [facility] Work Phone: Cholesterol [Mass/Vol] 139 mg/dL <200 [facility] Work Phone: Comment on above: <200 mg/dL Desirable 200-240 mg/dL Borderline >240 mg/dL High Risk Eosinophils/100 WBC (Bld) 2.6 % 0-5 [facility] Work Phone: [phone] Glucose [Mass/Vol] 92 mg/dL 74-106 [facility] Work Phone: Neutrophils (Bld) [#/Vol] 3.8 10*3/uL 2.0-7.7 [facility] Work Phone: [phone] Neutrophils/100 WBC (Bld) 61.8 % 47-70 [facility] Work Phone: Potassium [Moles/Vol] 4.3 mmol/L 3.5-5.1 [facility] Work Phone: [phone] Protein [Mass/Vol] 7.0 g/dL 6.4-8.2 [facility] Work Phone: [phone] Sodium [Moles/Vol] 140 mmol/L 136-145 [facility] Work Phone: [phone] Triglyceride [Mass/Vol] 113 mg/dL <199 [facility] Work Phone: [phone] Comment on above: The drugs N-Acetylcy steine and Metamizole may falsely depress this assay.Serum Triglycerides Reference Interval Normal <150 mg/dL Borderline high 150 - 199 mg/dL High 200 - 499 mg/dL Very High > or = 500 mg/dL WBC (Bld) [#/Vol] 6.2 10*3/uL 4.4-11.0 [facility] Work Phone: [phone] Blood erythrocytes count (nu mber/volume)on 01-25-2022 RBC (Bld) [#/Vol] 3.88 10*6/uL 4.2-5.4 [facility] Work Phone: [phone] Blood hemoglobin measurement (mass/volume)on 01-25-2022 Hemoglobin (Bld) [Mass/Vol] 11.8 g/dL 12.0-15.0 [facility] Work Phone: [phone] Blood lymphocytes/100 leukoc yteson 01-25-2022 Lymphocytes/100 WBC (Bld) 26.3 % 19-41 [facility] Work Phone: Blood monocytes/100 leukocyt eson 01-25-2022 Monocytes/100 WBC (Bld) 7.9 % 0-10 [facility] Work Phone: Blood platelet mean volumeon 01-25-2022 Platelet mean volume (Bld) [Entitic vol] 9.2 fL 6.2-12.0 [facility] Work Phone: [phone] Determination of erythrocyte mean corpuscular volume (MCV)on 01-25-2022 MCV (RBC) [Entitic vol] 96.4 fL 81-99 [facility] Work Phone: Hematocrit Auto (Bld) [Volum e fraction]on 01-25-2022 Hematocrit (Bld) [Volume fraction] 37.4 % 37-47 [facility] Work Phone: [phone] Iron measurement (mass/mass) on 01-25-2022 Iron (Unsp spec) [Mass/Mass] 85 ug/dL 50-170 [facility] Work Phone: [phone] Laboratory - Chemistry and C hemistry - challengeon 01-25-2022 ALP [Catalytic activity/Vol] 111 U/L 45-117 [facility] Work Phone: [phone] ALT [Catalytic activity/Vol] 37 U/L 13-56 [facility] Work Phone: [phone] CO2 [Moles/Vol] 31.0 mmol/L 21.0-32.0 [facility] Work Phone: [phone] Cobalamin (Vitamin B12) [Mass/Vol] 535 pg/mL 211-911 [facility] Work Phone: Globulin (S) [Mass/Vol] 3.3 g/dL 2.2-4.2 [facility] Work Phone: [phone] Urea nitrogen/Creatinine [Mass ratio] 19.7 mg/mg 10-20 [facility] Work Phone: [phone] Laboratory - Hematology and Cell countson 01-25-2022 Erythrocyte distribution width (RBC) [Entitic vol] 43.9 fL 35.1-43.9 [facility] Work Phone: Erythrocyte distribution width (RBC) [Ratio] 12.4 % 11.6-14.6 [facility] Work Phone: Immature granulocytes/100 WBC (Bld) 0.300 % 0.0-0.9 [facility] Work Phone: Comment on above: IG% - Immature Granu locytes (promyelocytes, myelocytes and metamyelocytes) > 1% indicates that a LEFT SHIFT is Present. MCH (RBC) [Entitic mass] 30.4 pg 27.0-32.0 [facility] Work Phone: Nucleated RBC/100 WBC (Bld) [Ratio] 0 % 0-5 [facility] Work Phone: MCHC Auto (RBC) [Mass/Vol]on 01-25-2022 MCHC (RBC) [Mass/Vol] 31.6 g/dL 32-36 [facility] Work Phone: No Panel Informationon 01-25 Estimated GFR (MDRD) Amer 79 mL/min >60 [facility] Work Phone: Comment on above: GFR Calc Estimated GFR (MDRD) Non-Af Amer 66 mL/min >60 [facility] Work Phone: Comment on above: Non- GFR Calc Total Iron Binding Capacity 315 ug/dL 250-450 [facility] Work Phone: Vitamin D 25-Hydroxy 72.0 ng/mL [facility] Work Phone: Comment on above: Vitamin D 25(OH) Sta tus Range Deficiency <20 ng/mL (50nmol/L) Insufficiency 20 - 30 ng/mL (50 - 75 nmol/L) Sufficiency 30 - 100 ng/mL (75 - 250 nmol/L) Toxicity >100 ng/mL (>250 nmol/L) Platelets bldon 01-25-2022 Platelets (Bld) [#/Vol] 287 10*3/uL 150-450 [facility] Work Phone: Serum or plasma albumin filomena urement (mass/volume)on 01-25-2022 Albumin [Mass/Vol] 3.7 g/dL 3.2-5.0 [facility] Work Phone: Serum or plasma albumin/glob ulin mass ratioon 01-25-2022 Albumin/Globulin [Mass ratio] 1.1 {ratio} 0.9-2.4 [facility] Work Phone: Serum or plasma calcium filomena urement (mass/volume)on 01-25-2022 Calcium [Mass/Vol] 9.2 mg/dL 8.5-10.1 [facility] Work Phone: Serum or plasma cholesterol in HDL measurement (mass/volume)on 01-25-2022 Cholesterol in HDL [Mass/Vol] 52 mg/dL >40 [facility] Work Phone: Comment on above: The drugs N-Acetylcy steine and Metamizole may falsely depress this assay. Reference Range HDL <40 mg/dL Low HDL Cholesterol HDL >or= 60 mg/dL High HDL Cholesterol Serum or plasma cholesterol in VLDL measurement (mass/volume)on 01-25-2022 Cholesterol in VLDL [Mass/Vol] 23 mg/dL 5-40 [facility] Work Phone: Serum or plasma creatinine m easurement (mass/volume)on 01-25-2022 Creatinine [Mass/Vol] 0.91 mg/dL 0.55-1.02 [facility] Work Phone: Comment on above: The validity of the calculated GFR & GFRAA in patients over 70 years has not been determined. Clinical correlation is essential. Serum or plasma ferritin kaiser surement (mass/volume)on 01-25-2022 Ferritin [Mass/Vol] 24 ng/mL 8-252 [facility] Work Phone: Serum or plasma iron saturat ion measurement (mass fraction)on 01-25-2022 Iron saturation [Mass fraction] 27.0 % 15.0-55.0 [facility] Work Phone: Serum or plasma low density lipoprotein (LDL) cholesterol measurement (mass/volume)on 01-25-2022 Cholesterol in LDL [Mass/Vol] 64 mg/dL 0-130 [facility] Work Phone: [phone] Serum or plasma urea nitroge n measurement (mass/volume)on 01-25-2022 Urea nitrogen [Mass/Vol] 18 mg/dL 7-18 [facility] Work Phone: [phone] Thin prep Papanicolaou smear with manual screeningon 01-25-2022 Thin prep Papanicolaou smear with manual screening 24 U/L 15-37 [facility] Work Phone: Thin prep Papanicolaou smear with manual screening 3 5-15 [facility] Work Phone: [phone] No Panel Informationon 12-01 SARS-CoV-2 Antigen (Rapid) [facility] Work Phone: [phone] Absolute lymphocyte counton 10-20-2021 Lymphocytes Auto (Unsp spec) [#/Vol] 1.69 10*3/uL 0.83-4.51 [facility] Work Phone: [phone] Basophil percentageon 2020 Basophil percentage 0 SEEN /hpf [facility] Work Phone: [phone] Eosinophils/100 WBC (Bld) 3.0 % 0-5 [facility] Work Phone: [phone] Neutrophils (Bld) [#/Vol] 3.9 10*3/uL 2.0-7.7 [facility] Work Phone: WBC (Bld) [#/Vol] 6.4 10*3/uL 4.4-11.0 [facility] Work Phone: [phone] Bilirubin Test strip Ql (U)o n 10-20-2021 Bilirubin Ql (U) Negative Negative [facility] Work Phone: [phone] Blood erythrocytes count (nu mber/volume)on 10-20-2021 RBC (Bld) [#/Vol] 3.92 10*6/uL 4.2-5.[address] [facility] Work Phone: [phone] Blood hemoglobin measurement (mass/volume)on 10-20-2021 Hemoglobin (Bld) [Mass/Vol] 12.3 g/dL 12.0-15.0 [facility] Work Phone: Blood lymphocytes/100 leukoc yteson 10-20-2021 Lymphocytes/100 WBC (Bld) 26.5 % 19-41 [facility] Work Phone: Blood monocytes/100 leukocyt eson 10-20-2021 Monocytes/100 WBC (Bld) 8.2 % 0-10 [facility] Work Phone: Blood platelet mean volumeon 10-20-2021 Platelet mean volume (Bld) [Entitic vol] 9.1 fL 6.2-12.0 [facility] Work Phone: [phone] Determination of erythrocyte mean corpuscular volume (MCV)on 10-20-2021 MCV (RBC) [Entitic vol] 95.4 fL 81-99 [facility] Work Phone: [phone] Hematocrit Auto (Bld) [Volum e fraction]on 10-20-2021 Hematocrit (Bld) [Volume fraction] 37.4 % 37-47 [facility] Work Phone: [phone] Ketones Test strip Ql (U)on 10-20-2021 Ketones Ql (U) Negative Negative [facility] Work Phone: [phone] Laboratory - Hematology and Cell countson 10-20-2021 Basophils/100 WBC (Unsp spec) 0.9 % 0-1 [facility] Work Phone: [phone] Erythrocyte distribution width (RBC) [Entitic vol] 42.0 fL 35.1-43.9 [facility] Work Phone: [phone] Erythrocyte distribution width (RBC) [Ratio] 12.1 % 11.6-14.6 [facility] Work Phone: [phone] Immature granulocytes/100 WBC (Bld) 0.200 % 0.0-0.9 [facility] Work Phone: [phone] Comment on above: IG% - Immature Granu locytes (promyelocytes, myelocytes and metamyelocytes) > 1% indicates that a LEFT SHIFT is Present. MCH (RBC) [Entitic mass] 31.4 pg 27.0-32.0 [facility] Work Phone: Neutrophils/100 WBC (Bld) 61.2 % 47-70 [facility] Work Phone: Nucleated RBC/100 WBC (Bld) [Ratio] 0 % 0-5 [facility] Work Phone: MCHC Auto (RBC) [Mass/Vol]on 10-20-2021 MCHC (RBC) [Mass/Vol] 32.9 g/dL 32-36 [facility] Work Phone: Mucus LM Ql (Urine sed)on Mucus Ql (Urine sed) 0 SEEN /hpf [facility] Work Phone: Nitrite Test strip Ql (U)on 10-20-2021 Nitrite Ql (U) Negative Negative [facility] Work Phone: No Panel Informationon 10-20 Vitamin D 25-Hydroxy 68.5 ng/mL [facility] Work Phone: Comment on above: Vitamin D 25(OH) Sta tus Range Deficiency <20 ng/mL (50nmol/L) Insufficiency 20 - 30 ng/mL (50 - 75 nmol/L) Sufficiency 30 - 100 ng/mL (75 - 250 nmol/L) Toxicity >100 ng/mL (>250 nmol/L) Platelets bldon 10-20-2021 Platelets (Bld) [#/Vol] 309 10*3/uL 150-450 [facility] Work Phone: Protein Test strip Ql (U)on 10-20-2021 Protein Ql (U) Negative Negative [facility] Work Phone: Squamous epithelial cells de tection in urine sediment by light microscopyon 10-20-2021 Epithelial cells.squamous LM Ql (Urine sed) 5-10 SEEN /hpf [facility] Work Phone: Urine blood detectionon 10-05 RBC Ql (U) Negative Negative [facility] Work Phone: RBC Ql (U) 0 SEEN /hpf [facility] Work Phone: Urine clarityon 10-20-2021 Clarity (U) Clear Clear [facility] Work Phone: Urine color determinationon 10-20-2021 Color (U) Yellow Yellow [facility] Work Phone: Urine glucose detectionon Glucose Ql (U) Normal mg/dl Normal [facility] Work Phone: Urine leukocyte esterase det ection by dipstickon 10-20-2021 Leukocyte esterase Test strip Ql (U) Negative Negative [facility] Work Phone: Urine pHon 10-20-2021 pH (U) 7.0 [pH] [facility] Work Phone: Urine sediment bacteria coun t by microscopy (number/high power field)on 10-20-2021 Bacteria LM.HPF (Urine sed) [#/Area] 0 /[HPF] None Seen [facility] Work Phone: Urine specific gravity measu rementon 10-20-2021 Specific gravity (U) [Rel density] 1.010 [facility] Work Phone: Urobilinogen Auto test strip Ql (U)on 10-20-2021 Urobilinogen Ql (U) Normal mg/dl Normal [facility] Work Phone: Basophil percentageon 2020 Bilirubin [Mass/Vol] 0.30 mg/dL 0.20-1.00 [facility] Work Phone: Comment on above: For patients on eltr ombopag therapy, use of Dim[place] TBIL is not recommended. Chloride [Moles/Vol] 109 mmol/L 98-107 [facility] Work Phone: Cholesterol [Mass/Vol] 132 mg/dL <200 [facility] Work Phone: Comment on above: <200 mg/dL Desirable 200-240 mg/dL Borderline >240 mg/dL High Risk Glucose [Mass/Vol] 87 mg/dL 74-106 [facility] Work Phone: Comment on above: Please note revised GLUCOSE reference range effective 2017. Potassium [Moles/Vol] 3.9 mmol/L 3.5-5.1 [facility] Work Phone: Protein [Mass/Vol] 6.9 g/dL 6.4-8.2 [facility] Work Phone: Sodium [Moles/Vol] 143 mmol/L 136-145 [facility] Work Phone: Triglyceride [Mass/Vol] 101 mg/dL [facility] Work Phone: Comment on above: The drugs N-Acetylcy steine and Metamizole may falsely depress this assay.Serum Triglycerides Reference Interval Normal <150 mg/dL Borderline high 150 - 199 mg/dL High 200 - 499 mg/dL Very High > or = 500 mg/dL Laboratory - Chemistry and C hemistry - challengeon 10-17-2021 ALP [Catalytic activity/Vol] 92 U/L 45-117 [facility] Work Phone: ALT [Catalytic activity/Vol] 30 U/L 13-56 [facility] Work Phone: CO2 [Moles/Vol] 30.0 mmol/L 21.0-32.0 [facility] Work Phone: Globulin (S) [Mass/Vol] 3.4 g/dL 2.2-4.2 [facility] Work Phone: Urea nitrogen/Creatinine [Mass ratio] 21.8 mg/mg 10-20 [facility] Work Phone: No Panel Informationon 10-17 Estimated GFR (MDRD) Amer 71 mL/min >60 [facility] Work Phone: Comment on above: GFR Calc Estimated GFR (MDRD) Non-Af Amer 58 mL/min >60 [facility] Work Phone: Comment on above: Non- GFR Calc Serum or plasma albumin filomena urement (mass/volume)on 10-17-2021 Albumin [Mass/Vol] 3.5 g/dL 3.2-5.0 [facility] Work Phone: Serum or plasma albumin/glob ulin mass ratioon 10-17-2021 Albumin/Globulin [Mass ratio] 1.0 {ratio} 0.9-2.4 [facility] Work Phone: Serum or plasma calcium filomena urement (mass/volume)on 10-17-2021 Calcium [Mass/Vol] 9.0 mg/dL 8.5-10.1 [facility] Work Phone: Serum or plasma cholesterol in HDL measurement (mass/volume)on 10-17-2021 Cholesterol in HDL [Mass/Vol] 51 mg/dL [facility] Work Phone: Comment on above: The drugs N-Acetylcy steine and Metamizole may falsely depress this assay. Reference Range HDL <40 mg/dL Low HDL Cholesterol HDL >or= 60 mg/dL High HDL Cholesterol Serum or plasma cholesterol in VLDL measurement (mass/volume)on 10-17-2021 Cholesterol in VLDL [Mass/Vol] 20 mg/dL 5-40 [facility] Work Phone: Serum or plasma creatinine m easurement (mass/volume)on 10-17-2021 Creatinine [Mass/Vol] 1.01 mg/dL 0.55-1.02 [facility] Work Phone: Comment on above: The validity of the calculated GFR & GFRAA in patients over 70 years has not been determined. Clinical correlation is essential. Serum or plasma low density lipoprotein (LDL) cholesterol measurement (mass/volume)on 10-17-2021 Cholesterol in LDL [Mass/Vol] 61 mg/dL 0-130 [facility] Work Phone: Serum or plasma urea nitroge n measurement (mass/volume)on 10-17-2021 Urea nitrogen [Mass/Vol] 22 mg/dL 7-18 [facility] Work Phone: Thin prep Papanicolaou smear with manual screeningon 10-17-2021 Thin prep Papanicolaou smear with manual screening 19 U/L 15-37 [facility] Work Phone: Thin prep Papanicolaou smear with manual screening 4 5-15 [facility] Work Phone: URINE CULTUREon 03-03-2021 Bacteria identified Cx Nom (U) SPECIMEN DESCRIPTION URINE CLEAN CATCH UA DIPSTICK LEUKOCYTE POSITIVE * Result Note: NITRITE POSITIVE * CULTURE ESCHERICHIA COLI * Result Note: >100,000 C/C/ML * * Result Note: Testing performed at [place] [address] * REPORT STATUS 03/03/2021 * Result Note: FINAL * ORGANISM ESCHERICHIA COLI * Result Note: ESCHERICHIA COLI * METHOD WIL AMPICILLIN >=32 RESISTANT AMPICILLIN/SULBACTAM 16 INTERMEDIATE CEFTRIAXONE <=1 SUSCEPTIBLE CEFAZOLIN <=4 SUSCEPTIBLE IMIPENEM <=0.25 SUSCEPTIBLE GENTAMICIN <=1 SUSCEPTIBLE TRIMETH-SULFA <=20 SUSCEPTIBLE AMOXICILLIN/CLAVULANIC A 8 SUSCEPTIBLE NITROFURANTOIN <=16 SUSCEPTIBLE PIPERACILLIN/TAZOBACTAM <=4 SUSCEPTIBLE LEVOFLOXACIN <=0.12 SUSCEPTIBLE ESBL NEGATIVE CEFTAZIDIME <=1 SUSCEPTIBLE Normal [facility] Comment on above: Performed By: #### A URNC #### [place] [address] [place] [address] ANCA PANELon 03-02-2021 3 (LA-3) ABS <3.5 Normal [facility] Comment on above: Result Comment: Refe rence range: 0.0 to 3.5 Unit: U/mL PERFORMED AT [facility] Performed By: #### C REACT, CPK, CMPF, ESR, URIC, ACBC #### [place] [address] #### LTTG, LC3, LC4, KEON, VJ, KARMAEZ #### Testing performed at [address] [address] #### [id number], LACCGA #### Testing performed at [facility] #### LANCA #### Testing performed at [address] [address] Testing performed at [facility] ATYPICAL PANCA <1:20 Normal [facility] Comment on above: Result Comment: Refe rence range: Neg:<1:20 Unit: titer (NOTE) The atypical pANCA pattern has been observed in a significant percentage of patients with ulcerative colitis, primary sclerosing cholangitis and autoimmune hepatitis. PERFORMED AT [facility] Performed By: #### C REACT, CPK, CMPF, ESR, URIC, ACBC #### Testing performed at [address] [address] #### LTTG, LC3, LC4, KEON, LIMEL, LACEZ #### Testing performed at [address] [address] #### [id number], LACCGA #### Testing performed at [facility] #### LANCA #### Testing performed at [address] [address] Testing performed at [facility] CYTOPLASMIC (C-ANCA) <1:20 Normal [facility] Comment on above: Result Comment: Refe rence range: Neg:<1:20 Unit: titer Performed By: #### C REACT, CPK, CMPF, ESR, URIC, ACBC #### Testing performed at [address] [address] #### LTTG, LC3, LC4, KEON, LIMEL, LACEZ #### Testing performed at [address] [address] #### [id number], LACCGA #### Testing performed at [facility] #### LANCA #### Testing performed at [address] [address] Testing performed at [facility] MPO ABS <9.0 [facility] Comment on above: Result Comment: Refe rence range: 0.0 to 9.0 Unit: U/mL PERFORMED AT [facility] Performed By: #### C REACT, CPK, CMPF, ESR, URIC, ACBC #### Testing performed at [address] [address] #### LTTG, LC3, LC4, KEON, LIMEL, LACEZ #### Testing performed at [address] [address] #### [id number], LACCGA #### Testing performed at [facility] #### LANCA #### Testing performed at [address] [address] Testing performed at [facility] PERINUCLEAR (P-ANCA) 1:[address] [facility] Comment on above: Result Comment: Refe rence range: Neg:<1:20 Unit: titer (NOTE) The presence of positive fluorescence exhibiting P-ANCA or C-ANCA patterns alone is not specific for the diagnosis of Gloria's Granulomatosis (WG) or microscopic polyangiitis. Decisions about treatment should not be based solely on ANCA IFA results. The [employer] Consensus recommends follow up testing of positive sera with both LA-3 and MPO-ANCA enzyme immunoassays. As many as 5% serum samples are positive only by EIA. Ref. AM J Clin Pathol 1999;111:507-513. Performed By: #### C REACT, CPK, CMPF, ESR, URIC, ACBC #### Testing performed at [address] [address] #### LTTG, LC3, LC4, KEON, LIMEL, LACEZ #### Testing performed at [address] [address] #### [id number], LACCGA #### Testing performed at [facility] #### LANCA #### Testing performed at [address] [address] Testing performed at [facility] CCP AB IGG IGAon 03-02-2021 ACC AB IGG IGA 3 Normal [facility] Comment on above: Result Comment: Refe rence range: 0 to 19 Unit: units (NOTE) Negative <20 Weak positive 20 - 39 Moderate positive 40 - 59 Strong positive >59 PERFORMED AT [facility] Performed By: #### C REACT, CPK, CMPF, ESR, URIC, ACBC #### [place] [address] #### LTTG, LC3, LC4, KEON, LIMEL, LACEZ #### Testing performed at [address] [address] #### [id number], LACCGA #### Testing performed at [facility] #### LANCA #### [place] [address] Testing performed at [facility] VIT D, 1,25 DIHYDROXon 03-02 VIT. D 1,25 62.7 Normal [facility] Comment on above: Result Comment: Refe rence range: 19.9 to 79.3 Unit: pg/mL PERFORMED AT [facility] Performed By: #### C REACT, CPK, CMPF, ESR, URIC, ACBC #### [place] [address] #### LTTG, LC3, LC4, KEON, LIMEL, LACEZ #### [place] [address] #### [id number], LACCGA #### Testing performed at [facility] #### LANCA #### [place] [address] Testing performed at [facility] *RFLX-ANAon 03-01-2021 ANTI-CENTROMERE B AB <0.2 Normal [facility] Comment on above: Result Comment: Refe rence range: 0.0 to 0.9 Unit: AI Performed By: #### C REACT, CPK, CMPF, ESR, URIC, ACBC #### Testing performed at [address] [address] #### LTTG, LC3, LC4, KEON, LIMEL, LACEZ #### Testing performed at [address] [address] #### [id number], LACCGA #### Testing performed at [facility] #### LANCA #### Testing performed at [address] [address] Testing performed at [facility] ANTI-DNA (DS) 4 Normal [facility] Comment on above: Result Comment: Refe rence range: 0 to 9 Unit: IU/mL (NOTE) Negative <5 Equivocal 5 - 9 Positive >9 Performed By: #### C REACT, CPK, CMPF, ESR, URIC, ACBC #### [place] [address] #### LTTG, LC3, LC4, KEON, LIMEL, LACEZ #### Testing performed at [address] [address] #### [id number], LACCGA #### Testing performed at [facility] #### LANCA #### Testing performed at [address] [address] Testing performed at [facility] ANTI-NICKY-1 <0.2 [facility] Comment on above: Result Comment: Refe rence range: 0.0 to 0.9 Unit: AI Performed By: #### C REACT, CPK, CMPF, ESR, URIC, ACBC #### Testing performed at [address] [address] #### LTTG, LC3, LC4, KEON, LIMEL, LACEZ #### Testing performed at [address] [address] #### [id number], LACCGA #### Testing performed at [facility] #### LANCA #### Testing performed at [facility], [address] [address] Testing performed at [facility] ANTI-SS-A <0.2 [facility] Comment on above: Result Comment: Refe rence range: 0.0 to 0.9 Unit: AI Performed By: #### C REACT, CPK, CMPF, ESR, URIC, ACBC #### [place] [address] #### LTTG, LC3, LC4, KEON, LIMEL, LACEZ #### Testing performed at [address] [address] #### [id number], LACCGA #### Testing performed at [facility] #### LANCA #### Testing performed at [address] [address] Testing performed at [facility] ANTI-SS-B <0.2 [facility] Comment on above: Result Comment: Refe rence range: 0.0 to 0.9 Unit: AI Performed By: #### C REACT, CPK, CMPF, ESR, URIC, ACBC #### Testing performed at [address] [address] #### LTTG, LC3, LC4, KEON, LIMEL, LACEZ #### Testing performed at [address] [address] #### [id number], LACCGA #### Testing performed at [facility] #### LANCA #### Testing performed at [address] [address] Testing performed at [facility] Antichromatin IgG, Antibodies >8.0 [facility] Comment on above: Result Comment: Refe rence range: 0.0 to 0.9 Unit: AI PERFORMED AT [facility] Performed By: #### C REACT, CPK, CMPF, ESR, URIC, ACBC #### Testing performed at [address] [address] #### LTTG, LC3, LC4, KEON, LIMEL, LACEZ #### Testing performed at [facility] [address] [place], [place] [address] [place] [address] #### [id number], LACCGA #### Testing performed at [facility] #### LANCA #### Testing performed [address] [place] [address] [place] [address] Testing performed at [facility] FINANCIAL RETIREMENT PLAN SPECIALIST AB <0.2 [facility] Comment on above: Result Comment: Refe rence range: 0.0 to 0.9 Unit: AI Performed By: #### C REACT, CPK, CMPF, ESR, URIC, ACBC #### Testing performed at [address] [address] #### LTTG, LC3, LC4, KEON, LIMEL, LACEZ #### Testing performed at [address] [place] [address] #### [id number], LACCGA #### Testing performed at [facility] #### LANCA #### Testing performed at [address] [place] [address] Testing performed at [facility] SCL-70 AB <0.2 [facility] Comment on above: Result Comment: Refe rence range: 0.0 to 0.9 Unit: AI Performed By: #### C REACT, CPK, CMPF, ESR, URIC, ACBC #### Testing performed at [address] [address] #### LTTG, LC3, LC4, KEON, LIMEL, LACEZ #### Testing performed at [address] [place] [address] #### [id number], LACCGA #### Testing performed at [facility] #### LANCA #### Testing performed [address] [facility] [place] [address] Testing performed at [facility] SEE BELOW: Comment [facility] Comment on above: Result Comment: (NOT [...] Sm (anti-Fu) SLE 15 - 30% --------- FINANCIAL RETIREMENT PLAN SPECIALIST Mixed Connective Tissue Disease 95% (U1 nRNP, SLE 30 - 50% anti-ribonucleoprotein) Polymyositis and/or Dermatomyositis 20% --------- Scl-70 (antiDNA Scleroderma (diffuse) 20 - 35% topoisomerase) Crest 13% --------- Nicky-1 Polymyositis and/or Dermatomyositis 20 - 40% --------- Centromere B Scleroderma - Crest variant 80% Performed By: #### C REACT, CPK, CMPF, ESR, URIC, ACBC #### [place] [address] #### LTTG, LC3, LC4, KEON, LIMEL, LACEZ #### Testing performed at [address] [address] #### [id number], LACCGA #### Testing performed at [facility] #### LANCA #### Testing performed at [address] [place] [address] Testing performed at [facility] FU AB <0.2 Normal [facility] Comment on above: Result Comment: Refe rence range: 0.0 to 0.9 Unit: AI Performed By: #### C REACT, CPK, CMPF, ESR, URIC, ACBC #### Testing performed at [place] [id number] #### LTTG, LC3, LC4, KEON, LIMEL, LACEZ #### Testing performed at [place] [address] [place] [address] [place] [address] #### [id number], LACCGA #### Testing performed at [facility] #### LANCA #### Testing performed at [place] [address] [place] [address] [place] [address] Testing performed at [facility] ANGIO-CONVERTING ENZon 03-01 SOHAN 81 [facility] Comment on above: Result Comment: Refe rence range: 14 to 82 Unit: U/L PERFORMED AT [facility] Performed By: #### C REACT, CPK, CMPF, ESR, URIC, ACBC #### Testing performed at [address] [address] #### LTTG, LC3, LC4, KEON, LIMEL, LACEZ #### Testing performed [address] [facility] [address] #### [id number], LACCGA #### Testing performed at [facility] #### LANCA #### Testing performed [address] [place] [facility] [address] Testing performed at [facility] COMPLEMENT C3on 03-01-2021 C3 117 [facility] Comment on above: Result Comment: Refe rence range: 82 to 167 Unit: mg/dL PERFORMED AT [facility] Performed By: #### C REACT, CPK, CMPF, ESR, URIC, ACBC #### Testing performed at [address] [place] [address] #### LTTG, LC3, LC4, KEON, LIMEL, LACEZ #### Testing performed [address] [facility] [place] [address] #### [id number], LACCGA #### Testing performed at [facility] #### LANCA #### Testing performed at [place] [address] [address] [facility] [place] [address] Testing performed at [facility] COMPLEMENT C4on 03-01-2021 C4 20 Normal [facility] Comment on above: Result Comment: Refe rence range: 12 to 38 Unit: mg/dL PERFORMED AT [facility] Performed By: #### C REACT, CPK, CMPF, ESR, URIC, ACBC #### Testing performed at [place] [id number] #### LTTG, LC3, LC4, KEON, LIMEL, LACEZ #### Testing performed at [address] [place] [address] #### [id number], LACCGA #### Testing performed at [facility] #### LANCA #### Testing performed at [address] [address] Testing performed at [facility] ISATU AND PE, SERUMon 03-01-20 Albumin [Mass/Vol] 3.8 g/dL Normal [facility] Comment on above: Result Comment: Refe rence range: 2.9 to 4.4 Unit: g/dL Performed By: #### C REACT, CPK, CMPF, ESR, URIC, ACBC #### [place] [address] #### LTTG, LC3, LC4, KEON, LIMEL, LACEZ #### Testing performed at [address] [address] #### [id number], LACCGA #### Testing performed at [facility] #### LANCA #### Testing performed at [address] [place] [address] Testing performed at [facility] Albumin/Globulin [Mass ratio] 1.3 {ratio} Normal [facility] Comment on above: Result Comment: Refe rence range: 0.7 to 1.7 Performed By: #### C REACT, CPK, CMPF, ESR, URIC, ACBC #### [place] [address] #### LTTG, LC3, LC4, KEON, LIMEL, LACEZ #### Testing performed [address] [place] [address] #### [id number], LACCGA #### Testing performed at [facility] #### LANCA #### Testing performed at [address] [place] [address] Testing performed at [facility] [id number] 0.3 [facility] Comment on above: Result Comment: Refe rence range: 0.0 to 0.4 Unit: g/dL Performed By: #### C REACT, CPK, CMPF, ESR, URIC, ACBC #### Testing performed at [place] [id number] #### LTTG, LC3, LC4, KEON, LIMEL, LACEZ #### Testing performed at [address] [place] [address] #### [id number], LACCGA #### Testing performed at [facility] #### LANCA #### Testing performed at [address] [address] Testing performed at [facility] [id number] 0.8 [facility] Comment on above: Result Comment: Refe rence range: 0.4 to 1.0 Unit: g/dL Performed By: #### C REACT, CPK, CMPF, ESR, URIC, ACBC #### Testing performed at [address] [address] #### LTTG, LC3, LC4, KEON, LIMEL, LACEZ #### Testing performed at [address] [place] [address] #### [id number], LACCGA #### Testing performed at [facility] #### LANCA #### Testing performed at [address] [place] [address] Testing performed at [facility] BETA GLOBULIN 1.0 [facility] Comment on above: Result Comment: Refe rence range: 0.7 to 1.3 Unit: g/dL Performed By: #### C REACT, CPK, CMPF, ESR, URIC, ACBC #### Testing performed at [address] [address] #### LTTG, LC3, LC4, KEON, LIMEL, LACEZ #### Testing performed at [address] [place] [address] #### [id number], LACCGA #### Testing performed at [facility] #### LANCA #### Testing performed at [address] [place] [place] [address] Testing performed at [facility] GAMMA GLOBULIN 0.9 Normal [facility] Comment on above: Result Comment: Refe rence range: 0.4 to 1.8 Unit: g/dL Performed By: #### C REACT, CPK, CMPF, ESR, URIC, ACBC #### [place] [address] #### LTTG, LC3, LC4, KEON, LIMEL, LACEZ #### Testing performed at [address] [address] #### [id number], LACCGA #### Testing performed at [facility] #### LANCA #### Testing performed [address] [facility] [place] [address] Testing performed at [facility] GLOBULIN, TOTAL 3.0 Normal [facility] Comment on above: Result Comment: Refe rence range: 2.2 to 3.9 Unit: g/dL Performed By: #### C REACT, CPK, CMPF, ESR, URIC, ACBC #### Testing performed at [place] [id number] #### LTTG, LC3, LC4, KEON, LIMEL, LACEZ #### Testing performed [address] [facility] [place] [address] #### [id number], LACCGA #### Testing performed at [facility] #### LANCA #### Testing performed at [address] [place] [address] Testing performed at [facility] IgA [Mass/Vol] 267 mg/dL Normal [facility] Comment on above: Result Comment: Refe rence range: 87 to 352 Unit: mg/dL Performed By: #### C REACT, CPK, CMPF, ESR, URIC, ACBC #### Testing performed at [address] [address] #### LTTG, LC3, LC4, KEON, LIMEL, LACEZ #### Testing performed at [address] [place] [address] #### [id number], LACCGA #### Testing performed at [facility] #### LANCA #### Testing performed at [address] [address] Testing performed at [facility] IgG [Mass/Vol] 946 mg/dL Normal [facility] Comment on above: Result Comment: Refe rence range: 586 to 1602 Unit: mg/dL Performed By: #### C REACT, CPK, CMPF, ESR, URIC, ACBC #### Testing performed at [address] [address] #### LTTG, LC3, LC4, KEON, LIMEL, LACEZ #### Testing performed at [address] [place] [address] #### [id number], LACCGA #### Testing performed at [facility] #### LANCA #### Testing performed at [address] [place] [address] Testing performed at [facility] IgM [Mass/Vol] 110 mg/dL Normal [facility] Comment on above: Result Comment: Refe rence range: 26 to 217 Unit: mg/dL Performed By: #### C REACT, CPK, CMPF, ESR, URIC, ACBC #### Testing performed at [address] [address] #### LTTG, LC3, LC4, KEON, LIMEL, LACEZ #### Testing performed at [address] [address] #### [id number], LACCGA #### Testing performed at [facility] #### LANCA #### Testing performed at [address] [address] Testing performed at [facility] IMMUNOFIX: Comment: [facility] Comment on above: Result Comment: (NOT E) Presence of monoclonal protein is unclear at this time. Suggest repeat in 3 to 6 months if clinically indicated. Performed By: #### C REACT, CPK, CMPF, ESR, URIC, ACBC #### Testing performed at [address] [address] #### LTTG, LC3, LC4, KEON, LIMEL, LACEZ #### Testing performed at [address] [address] #### [id number], LACCGA #### Testing performed at [facility] #### LANCA #### Testing performed at [address] [address] Testing performed at [facility] M-SPIKE Not Observed [facility] Comment on above: Result Comment: Refe rence range: Not Observed Unit: g/dL Performed By: #### C REACT, CPK, CMPF, ESR, URIC, ACBC #### Testing performed at [address] [address] #### LTTG, LC3, LC4, KEON, LIMEL, LACEZ #### Testing performed at [address] [address] #### [id number], LACCGA #### Testing performed at [facility] #### LANCA #### Testing performed at [address] [address] Testing performed at [facility] PLEASE NOTE: Comment [facility] Comment on above: Result Comment: (NOT E) Protein electrophoresis scan will follow via computer, mail, or special procedure technologist delivery. PERFORMED AT [facility] Performed By: #### C REACT, CPK, CMPF, ESR, URIC, ACBC #### Testing performed at [address] [address] #### LTTG, LC3, LC4, KEON, LIMEL, LACEZ #### Testing performed at [address] [address] #### [id number], LACCGA #### Testing performed at [facility] #### LANCA #### Testing performed at [address] [address] Testing performed at [facility] Protein [Mass/Vol] 6.8 g/dL Normal [facility] Comment on above: Result Comment: Refe rence range: 6.0 to 8.5 Unit: g/dL Performed By: #### C REACT, CPK, CMPF, ESR, URIC, ACBC #### Testing performed at [address] [address] #### LTTG, LC3, LC4, KEON, LIMEL, LACEZ #### Testing performed at [address] [address] #### [id number], LACCGA #### Testing performed at [facility] #### LANCA #### Testing performed at [address] [address] Testing performed at [facility] E-FKRYBKUMD-HUY,IGAon 2020 TTG- IGA <2 Normal [facility] Comment on above: Result Comment: Refe rence range: 0 to 3 Unit: U/mL (NOTE) Negative 0 - 3 Weak Positive 4 - 10 Positive >10 Tissue Transglutaminase (tTG) has been identified as the endomysial antigen. Studies have demonstr- ated that endomysial IgA antibodies have over 99% specificity for gluten sensitive enteropathy. PERFORMED AT [facility] Performed By: #### C REACT, CPK, CMPF, ESR, URIC, ACBC #### Testing performed at [address] [address] #### LTTG, LC3, LC4, KEON, LIMEL, LACEZ #### Testing performed at [address] [place] [address] #### [id number], LACCGA #### Testing performed at [facility] #### LANCA #### Testing performed at [address] [place] [address] Testing performed at [facility] 25 0H VITAMIN D LEVELon 02-04 25 0H VITAMIN D LEVEL 22.5 NG/ML Low >30 [facility] Comment on above: Result Comment: DEFICIENT <20 NG/ML INSUFFICIENT 20-<30 NG/ML SUFFICIENT 30-100 NG/ML POTENTIAL TOXICITY >100 NG/ML Performed By: #### C REACT, CPK, CMPF, ESR, URIC, ACBC #### Testing performed at [address] [address] #### LTTG, LC3, LC4, KEON, LIMEL, LACEZ #### Testing performed at [address] [address] #### [id number], LACCGA #### Testing performed at [facility] #### LANCA #### Testing performed at [address] [address] Testing performed at [facility] C REACTIVE PROTEINon 021 CRP [Mass/Vol] mg/L Normal 0-10.0 [facility] Comment on above: Performed By: #### C REACT, CPK, CMPF, ESR, URIC, ACBC #### Testing performed at [address] [address] #### LTTG, LC3, LC4, KEON, LIMEL, LACEZ #### Testing performed at [address] [place] [address] #### [id number], LACCGA #### Testing performed at [facility] #### LANCA #### Testing performed at [address] [address] Testing performed at [facility] C REACTIVE PROTEINOrdered By : Allen Godinez on 02-28-2021 CRP [Mass/Vol] mg/L 0 - 10.0 MG/L [facility] CBCon 02-28-2021 ABSOLUTE BAS 0.0 10*3/uL Normal 0.0-0.2 [facility] Comment on above: Performed By: #### C REACT, CPK, CMPF, ESR, URIC, ACBC #### [place] [address] #### LTTG, LC3, LC4, KEON, LIMEL, LACEZ #### Testing performed at [address] [address] #### [id number], LACCGA #### Testing performed at [facility] #### LANCA #### Testing performed at [address] [address] Testing performed at [facility] ABSOLUTE EOS 0.20 10*3/uL Normal 0.0-0.7 [facility] Comment on above: Performed By: #### C REACT, CPK, CMPF, ESR, URIC, ACBC #### [place] [address] #### LTTG, LC3, LC4, KEON, LIMEL, LACEZ #### Testing performed at [address] [address] #### [id number], LACCGA #### Testing performed at [facility] #### LANCA #### Testing performed at [address] [address] Testing performed at [facility] ABSOLUTE NEUTROPHIL COUNT 3.6 10*3/uL Normal 1.4-6.5 [facility] Comment on above: Performed By: #### C REACT, CPK, CMPF, ESR, URIC, ACBC #### Testing performed at [address] [address] #### LTTG, LC3, LC4, KEON, LIMEL, LACEZ #### Testing performed [address] [place] [address] #### [id number], LACCGA #### Testing performed at [facility] #### LANCA #### Testing performed at [address] [place] [address] Testing performed at [facility] Basophils/100 WBC (Bld) 0.6 % Normal 0.0-2.0 [facility] Comment on above: Performed By: #### C REACT, CPK, CMPF, ESR, URIC, ACBC #### Testing performed at [address] [place] [address] #### LTTG, LC3, LC4, KEON, LIMEL, LACEZ #### Testing performed at [address] [place] [address] #### [id number], LACCGA #### Testing performed at [facility] #### LANCA #### Testing performed at [address] [address] Testing performed at [facility] DTYPE AUTO DIFF Normal [facility] Comment on above: Performed By: #### C REACT, CPK, CMPF, ESR, URIC, ACBC #### Testing performed at [address] [address] #### LTTG, LC3, LC4, KEON, LIMEL, LACEZ #### Testing performed at [address] [place] [address] #### [id number], LACCGA #### Testing performed at [facility] #### LANCA #### Testing performed at [facility] [address] [place], [place] [address] [place] [address] Testing performed at [facility] Eosinophils/100 WBC (Bld) 2.8 % Normal 0.0-11.0 [facility] Comment on above: Performed By: #### C REACT, CPK, CMPF, ESR, URIC, ACBC #### Testing performed at [address] [address] #### LTTG, LC3, LC4, KEON, LIMEL, LACEZ #### Testing performed at [address] [place] [address] #### [id number], LACCGA #### Testing performed at [facility] #### LANCA #### Testing performed at [address] [place] [address] Testing performed at [facility] Lymphocytes (Bld) [#/Vol] 1.40 10*3/uL Normal 1.2-3.4 [facility] Comment on above: Performed By: #### C REACT, CPK, CMPF, ESR, URIC, ACBC #### Testing performed at [address] [address] #### LTTG, LC3, LC4, KEON, LIMEL, LACEZ #### Testing performed at [address] [place] [address] #### [id number], LACCGA #### Testing performed at [facility] #### LANCA #### Testing performed at [address] [place] [address] Testing performed at [facility] Lymphocytes/100 WBC (Bld) 25.5 % Normal 20.0-55.0 [facility] Comment on above: Performed By: #### C REACT, CPK, CMPF, ESR, URIC, ACBC #### Testing performed at [address] [address] #### LTTG, LC3, LC4, KEON, LIMEL, LACEZ #### Testing performed at [address] [place] [address] #### [id number], LACCGA #### Testing performed at [facility] #### LANCA #### Testing performed at [place] [address] [place] [address] Testing performed at [facility] Monocytes (Bld) [#/Vol] 0.3 10*3/uL Normal 0.0-0.7 [facility] Comment on above: Performed By: #### C REACT, CPK, CMPF, ESR, URIC, ACBC #### [place] [address] #### LTTG, LC3, LC4, KEON, LIMEL, LACEZ #### Testing performed at [place] [address] [place] [address] #### [id number], LACCGA #### Testing performed at [facility] #### LANCA #### Testing performed at [address] [place] [address] Testing performed at [facility] Monocytes/100 WBC (Bld) 6.0 % Normal 0.0-10.0 [facility] Comment on above: Performed By: #### C REACT, CPK, CMPF, ESR, URIC, ACBC #### Testing performed at [address] [address] #### LTTG, LC3, LC4, KEON, LIMEL, LACEZ #### Testing performed at [address] [place] [address] #### [id number], LACCGA #### Testing performed at [facility] #### LANCA #### Testing performed at [address] [place] [address] Testing performed at [facility] Neutrophils/100 WBC (Bld) 65.1 % Normal 37.0-75.0 [facility] Comment on above: Performed By: #### C REACT, CPK, CMPF, ESR, URIC, ACBC #### Testing performed at [address] [address] #### LTTG, LC3, LC4, KEON, LIMEL, LACEZ #### Testing performed at [address] [address] #### [id number], LACCGA #### Testing performed at [facility] #### LANCA #### Testing performed at [address] [address] Testing performed at [facility] Erythrocyte distribution width (RBC) [Ratio] 12.7 % Normal 11.5-14.5 [facility] Comment on above: Performed By: #### C REACT, CPK, CMPF, ESR, URIC, ACBC #### [place] [address] #### LTTG, LC3, LC4, KEON, LIMEL, LACEZ #### Testing performed at [address] [address] #### [id number], LACCGA #### Testing performed at [facility] #### LANCA #### Testing performed at [address] [address] Testing performed at [facility] Hematocrit (Bld) [Volume fraction] 39.2 % Normal 36.0-48.0 [facility] Comment on above: Performed By: #### C REACT, CPK, CMPF, ESR, URIC, ACBC #### Testing performed at [address] [address] #### LTTG, LC3, LC4, KEON, LIMEL, LACEZ #### Testing performed at [address] [address] #### [id number], LACCGA #### Testing performed at [facility] #### LANCA #### Testing performed at [address] [address] Testing performed at [facility] Hemoglobin (Bld) [Mass/Vol] 12.8 g/dL Normal 12.0-16.0 [facility] Comment on above: Performed By: #### C REACT, CPK, CMPF, ESR, URIC, ACBC #### Testing performed at [address] [address] #### LTTG, LC3, LC4, KEON, LIMEL, LACEZ #### Testing performed at [address] [address] #### [id number], LACCGA #### Testing performed at [facility] #### LANCA #### Testing performed at [address] [address] Testing performed at [facility] MCH (RBC) [Entitic mass] 31.4 pg Normal 26.0-35.0 [facility] Comment on above: Performed By: #### C REACT, CPK, CMPF, ESR, URIC, ACBC #### Testing performed at [address] [address] #### LTTG, LC3, LC4, KEON, LIMEL, LACEZ #### Testing performed at [address] [address] #### [id number], LACCGA #### Testing performed at [facility] #### LANCA #### Testing performed at [address] [address] Testing performed at [facility] MCHC (RBC) [Mass/Vol] 32.6 g/dL Normal 27.0-37.0 [facility] Comment on above: Performed By: #### C REACT, CPK, CMPF, ESR, URIC, ACBC #### Testing performed at [address] [address] #### LTTG, LC3, LC4, KEON, LIMEL, LACEZ #### Testing performed at [address] [address] #### [id number], LACCGA #### Testing performed at [facility] #### LANCA #### Testing performed at [address] [address] Testing performed at [facility] MCV (RBC) [Entitic vol] 96.1 fL Normal 80.0-100.0 [facility] Comment on above: Performed By: #### C REACT, CPK, CMPF, ESR, URIC, ACBC #### Testing performed at [address] [address] #### LTTG, LC3, LC4, KEON, LIMEL, LACEZ #### Testing performed at [address] [place] [address] #### [id number], LACCGA #### Testing performed at [facility] #### LANCA #### Testing performed at [address] [address] Testing performed at [facility] Platelet mean volume (Bld) [Entitic vol] 7.4 fL Normal 7.4-11.0 [facility] Comment on above: Performed By: #### C REACT, CPK, CMPF, ESR, URIC, ACBC #### Testing performed at [address] [address] #### LTTG, LC3, LC4, KEON, LIMEL, LACEZ #### Testing performed at [address] [address] #### [id number], LACCGA #### Testing performed at [facility] #### LANCA #### Testing performed at [address] [address] Testing performed at [facility] Platelets (Bld) [#/Vol] 284 10*3/uL Normal 130.0-400.0 [facility] Comment on above: Performed By: #### C REACT, CPK, CMPF, ESR, URIC, ACBC #### Testing performed at [address] [address] #### LTTG, LC3, LC4, KEON, LIMEL, LACEZ #### Testing performed at [address] [address] #### [id number], LACCGA #### Testing performed at [facility] #### LANCA #### Testing performed at [address] [address] Testing performed at [facility] RBC (Bld) [#/Vol] 4.08 10*6/uL Normal 4.0-5.4 [facility] Comment on above: Performed By: #### C REACT, CPK, CMPF, ESR, URIC, ACBC #### Testing performed at [address] [address] #### LTTG, LC3, LC4, KEON, LIMEL, LACEZ #### Testing performed at [address] [address] #### [id number], LACCGA #### Testing performed at [facility] #### LANCA #### Testing performed at [address] [address] Testing performed at [facility] WBC (Bld) [#/Vol] 5.5 10*3/uL Normal 3.6-11.0 [facility] Comment on above: Performed By: #### C REACT, CPK, CMPF, ESR, URIC, ACBC #### Testing performed at [address] [address] #### LTTG, LC3, LC4, KEON, LIMEL, LACEZ #### Testing performed at [address] [address] #### [id number], LACCGA #### Testing performed at [facility] #### LANCA #### Testing performed at [address] [address] Testing performed at [facility] CBC, EDIF, PLATELETOrdered B y: Allen Godinez on 02-28-2021 ABSOLUTE BASOPHIL COUNT 0.0 10*3/uL 0.0 - 0.2 10*3/uL [id number] [facility] Basophils/100 WBC (Bld) 0.6 % 0.0 - 2.0 % [facility] [facility] Differential cell count method Nom (Bld) AUTO DIFF % [facility] Eosinophils (Bld) [#/Vol] 0.20 10*3/uL 0.0 - 0.7 10*3/uL [facility] Eosinophils/100 WBC (Bld) 2.8 % 0.0 - 11.0 % [facility] Erythrocyte distribution width (RBC) [Ratio] 12.7 % 11.5 - 14.5 % [facility] Hematocrit (Bld) [Volume fraction] 39.2 % 36.0 - 48.0 % [facility] Hemoglobin (Bld) [Mass/Vol] 12.8 g/dL [facility] Lymphocytes (Bld) [#/Vol] 1.40 10*3/uL 1.2 - 3.4 10*3/uL [facility] Lymphocytes/100 WBC (Bld) 25.5 % 20.0 - 55.0 % [facility] MCH (RBC) [Entitic mass] 31.4 pg 26.0 - 35.0 PG [facility] MCHC (RBC) [Mass/Vol] 32.6 g/dL [facility] MCV (RBC) [Entitic vol] 96.1 fL [facility] Monocytes (Bld) [#/Vol] 0.3 10*3/uL 0.0 - 0.7 10*3/uL [facility] Monocytes/100 WBC (Bld) 6.0 % 0.0 - 10.0 % [facility] Neutrophils (Bld) [#/Vol] 3.6 10*3/uL 1.4 - 6.5 10*3/uL [facility] Neutrophils/100 WBC (Bld) 65.1 % 37.0 - 75.0 % [facility] Platelet mean volume (Bld) [Entitic vol] 7.4 fL [facility] Platelets (Bld) [#/Vol] 284 10*3/uL 130.0 - 400.0 10*3/uL [facility] RBC (Bld) [#/Vol] 4.08 10*6/uL 4.0 - 5.4 10*6/uL [facility] WBC (Bld) [#/Vol] 5.5 10*3/uL 3.6 - 11.0 10*3/uL [facility] CKOrdered By: Allen villarreal on 02-28-2021 CK [Catalytic activity/Vol] 128 U/L [facility] CMP FASTINGon 02-28-2021 A:G RATIO 1.3 RATIO Normal 1.3-2.2 [facility] Comment on above: Performed By: #### C REACT, CPK, CMPF, ESR, URIC, ACBC #### Testing performed at [address] [address] #### LTTG, LC3, LC4, KEON, LIMEL, LACEZ #### Testing performed at [address] [place] [address] #### [id number], LACCGA #### Testing performed at [facility] #### LANCA #### Testing performed at [address] [address] Testing performed at [facility] ALBUMIN 4.2 G/dl Normal 3.5-5.0 [facility] Comment on above: Performed By: #### C REACT, CPK, CMPF, ESR, URIC, ACBC #### Testing performed at [address] [address] #### LTTG, LC3, LC4, KEON, LIMEL, LACEZ #### Testing performed at [address] [address] #### [id number], LACCGA #### Testing performed at [facility] #### LANCA #### Testing performed at [address] [place] [address] Testing performed at [facility] ALP [Catalytic activity/Vol] 75 U/L Normal 38-126 [facility] Comment on above: Performed By: #### C REACT, CPK, CMPF, ESR, URIC, ACBC #### Testing performed at [address] [address] #### LTTG, LC3, LC4, KEON, LIMEL, LACEZ #### Testing performed at [address] [place] [address] #### [id number], LACCGA #### Testing performed at [facility] #### LANCA #### Testing performed at [address] [address] Testing performed at [facility] ALT [Catalytic activity/Vol] 15 U/L Normal 14-54 [facility] Comment on above: Performed By: #### C REACT, CPK, CMPF, ESR, URIC, ACBC #### Testing performed at [address] [address] #### LTTG, LC3, LC4, KEON, LIMEL, LACEZ #### Testing performed at [address] [place] [address] #### [id number], LACCGA #### Testing performed at [facility] #### LANCA #### Testing performed at [address] [address] Testing performed at [facility] AST [Catalytic activity/Vol] 18 U/L Normal 15-41 [facility] Comment on above: Performed By: #### C REACT, CPK, CMPF, ESR, URIC, ACBC #### Testing performed at [address] [address] #### LTTG, LC3, LC4, KEON, LIMEL, LACEZ #### Testing performed at [address] [address] #### [id number], LACCGA #### Testing performed at [facility] #### LANCA #### Testing performed at [address] [address] Testing performed at [facility] Bilirubin [Mass/Vol] 0.8 mg/dL Normal 0.2-1.2 [facility] Comment on above: Performed By: #### C REACT, CPK, CMPF, ESR, URIC, ACBC #### Testing performed at [address] [address] #### LTTG, LC3, LC4, KEON, LIMEL, LACEZ #### Testing performed at [facility] [address] [place] [address] #### [id number], LACCGA #### Testing performed at [facility] #### LANCA #### Testing performed at [facility] [address] [place], [place] [address] [place] [address] Testing performed at [facility] Creatinine [Mass/Vol] 0.81 mg/dL Normal 0.52-1.04 [facility] Comment on above: Performed By: #### C REACT, CPK, CMPF, ESR, URIC, ACBC #### Testing performed at [address] [address] #### LTTG, LC3, LC4, KEON, LIMEL, LACEZ #### Testing performed at [address] [place] [address] #### [id number], LACCGA #### Testing performed at [facility] #### LANCA #### Testing performed at [address] [place] [address] Testing performed at [facility] EST. GFR, >60 Normal [facility] Comment on above: Performed By: #### C REACT, CPK, CMPF, ESR, URIC, ACBC #### Testing performed at [address] [address] #### LTTG, LC3, LC4, KEON, LIMEL, LACEZ #### Testing performed at [address] [place] [address] #### [id number], LACCGA #### Testing performed at [facility] #### LANCA #### Testing performed at [address] [place] [address] Testing performed at [facility] EST. GFR,Non >60 Normal [facility] Comment on above: Performed By: #### C REACT, CPK, CMPF, ESR, URIC, ACBC #### Testing performed at [address] [address] #### LTTG, LC3, LC4, KEON, LIMEL, LACEZ #### Testing performed at [address] [address] #### [id number], LACCGA #### Testing performed at [facility] #### LANCA #### Testing performed at [address] [address] Testing performed at [facility] GFR Information Average GFR for 60-6 9 years old = 85. 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 Kidney failure, GFR = <15. The GFR estimate is not adjusted for extreme body surface area or acute process, nor has it been validated for women or ethnic groups other than and . Performed By: #### C REACT, CPK, CMPF, ESR, URIC, ACBC #### Testing performed at [address] [address] #### LTTG, LC3, LC4, KEON, LIMEL, LACEZ #### Testing performed at [address] [address] #### [id number], LACCGA #### Testing performed at [facility] #### LANCA #### Testing performed at [address] [address] Testing performed at [facility] Protein [Mass/Vol] 7.4 g/dL Normal 6.3-8.2 [facility] Comment on above: Performed By: #### C REACT, CPK, CMPF, ESR, URIC, ACBC #### Testing performed at [address] [address] #### LTTG, LC3, LC4, KEON, LIMEL, LACEZ #### Testing performed at [address] [address] #### [id number], LACCGA #### Testing performed at [facility] #### LANCA #### Testing performed at [place] [address] [place] [address] Testing performed at [facility] Urea nitrogen [Mass/Vol] 21 mg/dL High 7-20 [facility] Comment on above: Performed By: #### C REACT, CPK, CMPF, ESR, URIC, ACBC #### Testing performed at [address] [address] #### LTTG, LC3, LC4, KEON, LIMEL, LACEZ #### Testing performed at [facility] [address] [place] [address] #### [id number], LACCGA #### Testing performed at [facility] #### LANCA #### Testing performed at [address] [place] [address] Testing performed at [facility] Calcium [Mass/Vol] 9.2 mg/dL Normal 8.4-10.2 [facility] Comment on above: Performed By: #### C REACT, CPK, CMPF, ESR, URIC, ACBC #### Testing performed at [address] [place] [address] #### LTTG, LC3, LC4, KEON, LIMEL, LACEZ #### Testing performed at [address] [place] [address] #### [id number], LACCGA #### Testing performed at [facility] #### LANCA #### Testing performed at [place] [address] [place] [address] Testing performed at [facility] Chloride [Moles/Vol] 101 mmol/L Normal 98-107 [facility] Comment on above: Performed By: #### C REACT, CPK, CMPF, ESR, URIC, ACBC #### Testing performed at [address] [address] #### LTTG, LC3, LC4, KEON, LIMEL, LACEZ #### Testing performed at [address] [place] [address] #### [id number], LACCGA #### Testing performed at [facility] #### LANCA #### Testing performed at [address] [address] Testing performed at [facility] CO2 [Moles/Vol] 26 mmol/L Normal 22-30 [facility] Comment on above: Performed By: #### C REACT, CPK, CMPF, ESR, URIC, ACBC #### Testing performed at [address] [address] #### LTTG, LC3, LC4, KEON, LIMEL, LACEZ #### Testing performed at [address] [address] #### [id number], LACCGA #### Testing performed at [facility] #### LANCA #### Testing performed at [address] [address] Testing performed at [facility] Glucose [Mass/Vol] 87 mg/dL Normal 70-100 [facility] Comment on above: Result Comment: NORMAL <100 mg/dL PREDIABETES 101-126 mg/dL DIABETES 126 mg/dL or higher Performed By: #### C REACT, CPK, CMPF, ESR, URIC, ACBC #### Testing performed at [address] [address] #### LTTG, LC3, LC4, KEON, LIMEL, LACEZ #### Testing performed at [address] [address] #### [id number], LACCGA #### Testing performed at [facility] #### LANCA #### Testing performed at [address] [address] Testing performed at [facility] Potassium [Moles/Vol] 4.2 mmol/L Normal 3.5-5.1 [facility] Comment on above: Performed By: #### C REACT, CPK, CMPF, ESR, URIC, ACBC #### Testing performed at [address] [address] #### LTTG, LC3, LC4, KEON, LIMEL, LACEZ #### Testing performed at [address] [address] #### [id number], LACCGA #### Testing performed at [facility] #### LANCA #### Testing performed at [address] [address] Testing performed at [facility] Sodium [Moles/Vol] 138 mmol/L Normal 136-145 [facility] Comment on above: Performed By: #### C REACT, CPK, CMPF, ESR, URIC, ACBC #### Testing performed at [address] [address] #### LTTG, LC3, LC4, KEON, LIMEL, LACEZ #### Testing performed at [address] [address] #### [id number], LACCGA #### Testing performed at [facility] #### LANCA #### Testing performed at [address] [address] Testing performed at [facility] COMPREHENSIVE METABOLIC PANE LOrdered By: Allen Godinez on 02-28-2021 Albumin [Mass/Vol] 4.2 G/dl 3.5 - 5.0 G/dl [facility] Albumin/Globulin [Mass ratio] 1.3 {ratio} [facility] ALP [Catalytic activity/Vol] 75 U/L [facility] ALT [Catalytic activity/Vol] 15 U/L [facility] AST [Catalytic activity/Vol] 18 U/L [facility] Bilirubin [Mass/Vol] 0.8 mg/dL [facility] Calcium [Mass/Vol] 9.2 mg/dL [facility] Chloride [Moles/Vol] 101 mmol/L [facility] CO2 [Moles/Vol] 26 mmol/L [facility] Creatinine [Mass/Vol] 0.81 mg/dL [facility] GFR COMMENT Average GFR for 60-6 9 years old = 85. [facility] Comment on above: Chronic Kidney disea se, GFR = <60. Kidney failure, GFR = <15. The GFR estimate is not adjusted for extreme body surface area or acute process, nor has it been validated for women or ethnic groups other than and . GFR/1.73 sq M.predicted among blacks MDRD (S/P/Bld) [Vol rate/Area] mL/min/{1.73_m2} ml/min/1.73 sq.m [facility] GFR/1.73 sq M.predicted among non-blacks MDRD (S/P/Bld) [Vol rate/Area] mL/min/{1.73_m2} ml/min/1.73 sq.m [facility] Glucose post fast [Mass/Vol] 87 mg/dL [facility] Comment on above: NORMAL <100 mg/dL PREDIABETES 101-126 mg/dL DIABETES 126 mg/dL or higher Interpretation and review of laboratory results Abnormal [facility] Potassium [Moles/Vol] 4.2 mmol/L [facility] Protein [Mass/Vol] 7.4 g/dL [facility] Sodium [Moles/Vol] 138 mmol/L [facility] Urea nitrogen [Mass/Vol] 21 mg/dL High [facility] CPKon 02-28-2021 CPK 128 IU/L Normal 26-140 [facility] Comment on above: Performed By: #### C REACT, CPK, CMPF, ESR, URIC, ACBC #### Testing performed at [facility] [address] [place] [address] #### LTTG, LC3, LC4, KEON, LIMEL, LACEZ #### Testing performed at [address] [address] #### [id number], LACCGA #### Testing performed at [facility] #### LANCA #### Testing performed at [address] [place] [address] Testing performed at [facility] ESRon 02-28-2021 ESR (Bld) [Velocity] 28 mm/h Normal 0-30 [facility] Comment on above: Performed By: #### C REACT, CPK, CMPF, ESR, URIC, ACBC #### Testing performed at [address] [address] #### LTTG, LC3, LC4, KEON, LIMEL, LACEZ #### Testing performed at [address] [address] #### [id number], LACCGA #### Testing performed at [facility] #### LANCA #### Testing performed at [address] [address] Testing performed at [facility] No Panel InformationOrdered By: Allen Godinez on 02-28-2021 Interpretation and review of laboratory results Abnormal [facility] SEDIMENTATION RATE, AUTOMATE DOrdered By: Allen Godinez on 02-28-2021 ESR (Bld) [Velocity] 28 mm/h [facility] TSHon 02-28-2021 TSH 1.332 uIU/ML Normal 0.45-5.33 [facility] Comment on above: Performed By: #### C REACT, CPK, CMPF, ESR, URIC, ACBC #### Testing performed at [address] [address] #### LTTG, LC3, LC4, KEON, LIMEL, LACEZ #### Testing performed at [address] [address] #### [id number], LACCGA #### Testing performed at [facility] #### LANCA #### Testing performed at [address] [address] Testing performed at [facility] TSHOrdered By: Allen real on 02-28-2021 TSH Qn 1.332 m[IU]/L [facility] URIC ACIDon 02-28-2021 Urate [Mass/Vol] 2.9 mg/dL Normal 2.5-6.2 [facility] Comment on above: Performed By: #### C REACT, CPK, CMPF, ESR, URIC, ACBC #### Testing performed at [address] [address] #### LTTG, LC3, LC4, KEON, LIMEL, LACEZ #### [place] [address] #### [id number], LACCGA #### Testing performed at [facility] #### LANCA #### Testing performed at [address] [address] Testing performed at [facility] URIC ACIDOrdered By: Allen whitman on 02-28-2021 Urate [Mass/Vol] 2.9 mg/dL [facility] URINALYSIS, MACROOrdered By: Allen Godinez on 02-28-2021 Bilirubin Ql (U) Negative NEGATIVE [facility] Clarity (U) CLOUDY Abnormal CLEAR [facility] Color (U) YELLOW YELLOW [facility] Glucose Test strip (U) [Mass/Vol] Negative NEGATIVE mg/dl [facility] Hemoglobin Ql (U) TRACE-INTACT Abnormal NEGATIVE [facility] Ketones (U) [Mass/Vol] Negative NEGAT TERRANCE mg/dl [facility] Leukocyte esterase Test strip Ql (U) SMALL Abnormal NEGATIVE [facility] Nitrite Ql (U) Positive Abnormal NEGATIVE [facility] pH (U) 6.0 [pH] [facility] Protein Ql (U) Negative NEGATIVE mg/dl [facility] Specific gravity (U) [Rel density] 1.020 [facility] Urobilinogen (U) [Mass/Vol] 0.2 mg/dL [facility] URINE MACROSCOPICon 02-29-20 21 Bilirubin Ql (U) Negative Normal NEGATIVE [facility] Comment on above: Performed By: #### C REACT, CPK, CMPF, ESR, URIC, ACBC #### Testing performed at [address] [address] #### LTTG, LC3, LC4, KEON, LIMEL, LACEZ #### Testing performed at [address] [address] #### [id number], LACCGA #### Testing performed at [facility] #### LANCA #### Testing performed at [place] [address] [place] [facility] [place] [address] Testing performed at [facility] Clarity (U) CLOUDY Abnormal CLEAR [facility] Comment on above: Performed By: #### C REACT, CPK, CMPF, ESR, URIC, ACBC #### Testing performed at [address] [address] #### LTTG, LC3, LC4, KEON, LIMEL, LACEZ #### Testing performed at [facility] [address] [place] [address] [place] [address] #### [id number], LACCGA #### Testing performed at [facility] #### LANCA #### Testing performed at [facility] [address] [place] [facility] [place] [address] Testing performed at [facility] Color (U) YELLOW Normal YELLOW [facility] Comment on above: Performed By: #### C REACT, CPK, CMPF, ESR, URIC, ACBC #### Testing performed at [address] [place] [address] #### LTTG, LC3, LC4, KEON, LIMEL, LACEZ #### Testing performed at [facility] [address] [place] [facility] [place] [address] #### [id number], LACCGA #### Testing performed at [facility] #### LANCA #### Testing performed at [facility] [address] [place] [facility] [place] [address] Testing performed at [facility] Glucose Ql (U) Negative Normal NEGATIVE [facility] Comment on above: Performed By: #### C REACT, CPK, CMPF, ESR, URIC, ACBC #### Testing performed at [address] [address] #### LTTG, LC3, LC4, KEON, LIMEL, LACEZ #### Testing performed at [facility] [address] [address] #### [id number], LACCGA #### Testing performed at [facility] #### LANCA #### Testing performed at [place] [address] [place] [address] Testing performed at [facility] pH (U) 6.0 [pH] Normal 5.0-7.0 [facility] Comment on above: Performed By: #### C REACT, CPK, CMPF, ESR, URIC, ACBC #### Testing performed at [address] [address] #### LTTG, LC3, LC4, KEON, LIMEL, LACEZ #### Testing performed at [place] [address] [place] [address] #### [id number], LACCGA #### Testing performed at [facility] #### LANCA #### Testing performed at [address] [place] [address] Testing performed at [facility] URINE HEMOGLOBIN TRACE-INTACT Abnormal NEGATIVE [facility] Comment on above: Performed By: #### C REACT, CPK, CMPF, ESR, URIC, ACBC #### Testing performed at [address] [address] #### LTTG, LC3, LC4, KEON, LIMEL, LACEZ #### Testing performed at [address] [place] [address] #### [id number], LACCGA #### Testing performed at [facility] #### LANCA #### Testing performed at [address] [place] [address] Testing performed at [facility] URINE KETONE Negative Normal NEGATIVE [facility] Comment on above: Performed By: #### C REACT, CPK, CMPF, ESR, URIC, ACBC #### Testing performed at [address] [address] #### LTTG, LC3, LC4, KEON, LIMEL, LACEZ #### Testing performed at [address] [place] [address] #### [id number], LACCGA #### Testing performed at [facility] #### LANCA #### Testing performed at [address] [place] [address] Testing performed at [facility] URINE LEUKOTEST SMALL Abnormal NEGATIVE [facility] Comment on above: Performed By: #### C REACT, CPK, CMPF, ESR, URIC, ACBC #### Testing performed at [address] [address] #### LTTG, LC3, LC4, KEON, LIMEL, LACEZ #### Testing performed at [address] [address] #### [id number], LACCGA #### Testing performed at [facility] #### LANCA #### Testing performed at [address] [address] Testing performed at [facility] URINE NITRATES Positive Abnormal NEGATIVE [facility] Comment on above: Performed By: #### C REACT, CPK, CMPF, ESR, URIC, ACBC #### Testing performed at [address] [address] #### LTTG, LC3, LC4, KEON, LIMEL, LACEZ #### Testing performed at [address] [address] #### [id number], LACCGA #### Testing performed at [facility] #### LANCA #### Testing performed at [address] [address] Testing performed at [facility] URINE SPEC GRAVITY 1.020 Normal 1.010-1.025 [facility] Comment on above: Performed By: #### C REACT, CPK, CMPF, ESR, URIC, ACBC #### Testing performed at [address] [address] #### LTTG, LC3, LC4, KEON, LIMEL, LACEZ #### Testing performed at [address] [place] [address] #### [id number], LACCGA #### Testing performed at [facility] #### LANCA #### Testing performed at [address] [address] Testing performed at [facility] URINE TOTAL PROTEIN Negative Normal NEGATIVE [facility] Comment on above: Performed By: #### C REACT, CPK, CMPF, ESR, URIC, ACBC #### [place] [address] #### LTTG, LC3, LC4, KEON, LIMEL, LACEZ #### Testing performed at [address] [address] #### [id number], LACCGA #### Testing performed at [facility] #### LANCA #### Testing performed at [address] [address] Testing performed at [facility] Urobilinogen Qn (U) 0.2 {Donna'U}/dL Normal 0.2-1.0 [facility] Comment on above: Performed By: #### C REACT, CPK, CMPF, ESR, URIC, ACBC #### Testing performed at [address] [address] #### LTTG, LC3, LC4, KEON, LIMEL, LACEZ #### Testing performed at [address] [address] #### [id number], LACCGA #### Testing performed at [facility] #### LANCA #### Testing performed at [address] [address] Testing performed at [facility] URINE MICROSCOPICon 02-29-20 21 BACTERIA 2+ Abnormal NEGATIVE [facility] Comment on above: Performed By: #### C REACT, CPK, CMPF, ESR, URIC, ACBC #### Testing performed at [address] [place] [address] #### LTTG, LC3, LC4, KEON, LIMEL, LACEZ #### Testing performed at [facility] [address] [place] [address] #### [id number], LACCGA #### Testing performed at [facility] #### LANCA #### Testing performed at [facility] [address] [place] [address] Testing performed at [facility] CASTS NONE Normal [facility] Comment on above: Performed By: #### C REACT, CPK, CMPF, ESR, URIC, ACBC #### Testing performed at [address] [place] [address] #### LTTG, LC3, LC4, KEON, LIMEL, LACEZ #### Testing performed at [facility] [address] [place] [address] #### [id number], LACCGA #### Testing performed at [facility] #### LANCA #### Testing performed at [facility] [address] [place] [address] Testing performed at [facility] CRYSTAL NONE Normal [facility] Comment on above: Performed By: #### C REACT, CPK, CMPF, ESR, URIC, ACBC #### Testing performed at [address] [place] [address] #### LTTG, LC3, LC4, KEON, LIMEL, LACEZ #### Testing performed at [facility] [place] [address] [place] [address] #### [id number], LACCGA #### Testing performed at [facility] #### LANCA #### Testing performed at [facility] [address] [place], [place] [address] [place] [address] Testing performed at [facility] Epithelial cells LM Ql (Urine sed) 5 TO 10 [facility] Comment on above: Performed By: #### C REACT, CPK, CMPF, ESR, URIC, ACBC #### Testing performed at [address] [place] [address] #### LTTG, LC3, LC4, KEON, LIMEL, LACEZ #### Testing performed at [address] [address] #### [id number], LACCGA #### Testing performed at [facility] #### LANCA #### Testing performed at [address] [place] [address] Testing performed at [facility] Mucus Ql (Urine sed) Negative Normal NEGATIVE [facility] Comment on above: Performed By: #### C REACT, CPK, CMPF, ESR, URIC, ACBC #### Testing performed at [address] [place] [address] #### LTTG, LC3, LC4, KEON, LIMEL, LACEZ #### Testing performed at [address] [address] #### [id number], LACCGA #### Testing performed at [facility] #### LANCA #### Testing performed at [address] [address] Testing performed at [facility] URINE COMMENT REFLEX CULTURE PER ESTABLISHED CRITERIA. Normal [facility] Comment on above: Performed By: #### C REACT, CPK, CMPF, ESR, URIC, ACBC #### Testing performed at [address] [place] [address] #### LTTG, LC3, LC4, KEON, LIMEL, LACEZ #### Testing performed at [address] [place] [address] #### [id number], LACCGA #### Testing performed at [facility] #### LANCA #### Testing performed at [address] [place] [address] Testing performed at [facility] URINE RBC'S 1 TO 5 Normal NEGATIVE [facility] Comment on above: Performed By: #### C REACT, CPK, CMPF, ESR, URIC, ACBC #### Testing performed at [address] [address] #### LTTG, LC3, LC4, KEON, LIMEL, LACEZ #### Testing performed at [address] [address] #### [id number], LACCGA #### Testing performed at [facility] #### LANCA #### Testing performed at [address] [address] Testing performed at [facility] URINE WBC'S '5 TO 10 Normal NEGATIVE [facility] Comment on above: Performed By: #### C REACT, CPK, CMPF, ESR, URIC, ACBC #### Testing performed at [address] [address] #### LTTG, LC3, LC4, KEON, LIMEL, LACEZ #### Testing performed at [address] [address] #### [id number], LACCGA #### Testing performed at [facility] #### LANCA #### Testing performed at [address] [address] Testing performed at [facility] URINE MICROSCOPICOrdered By: Allen Godinez on 02-28-2021 Bacteria LM.HPF (Urine sed) [#/Area] 2+ Abnormal NEGATIVE [facility] Casts LM.LPF (Urine sed) [#/Area] NONE NONE /LPF [facility] Crystals LM Nom (Urine sed) NONE NONE [facility] Epithelial cells LM Ql (Urine sed) 5 TO 10 /HPF [facility] Mucus Ql (Urine sed) Negative NEGATIVE [facility] RBC LM.HPF (Urine sed) [#/Area] 1 TO 5 NEGATIVE /HPF [facility] Urine sediment comments LM Daryrl (Urine sed) REFLEX CULTURE PER ESTABLISHED CRITERIA. [facility] WBC LM.HPF (Urine sed) [#/Area] '5 TO 10 NEGATIVE /HPF [facility] VITAMIN D (25-HYDROXY,TOTAL) Ordered By: Allen Godinez on 02-28-2021 25-hydroxyvitamin D [Mass/Vol] 22.5 Low >30 NG/ML [facility] Comment on above: DEFICIENT <20 NG/ML INSUFFICIENT 20-<30 NG/ML SUFFICIENT 30-100 NG/ML POTENTIAL TOXICITY >100 NG/ML Interpretation and review of laboratory results Abnormal [facility] XR HIPS WITH PELVIS BILATERA Siva 02-28-2021 [...] bilateral hips, left greater than right. 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 [facility] EXAM: XR HIPS WITH P MARCY BILATERAL [...] noted arising from the left femoral head. [facility] User, Interfaces - 02/28/2021 4:27 PM EDT [...] the bilateral hips, left greater than right. [facility] XR KNEE LEFT 4+ VIEWSon 04-2 6-2021 XR KNEE LEFT 4+ VIEWS EXAM: XR KNEE LEFT 4+ VIEWS 02/28/2021 12:35 PM EDT HISTORY: knee pain COMPARISON: None. TECHNIQUE: 5 views of the left knee. FINDINGS: No acute fractures, dislocations, or radiopaque foreign bodies. IMPRESSION: No acute bony abnormalities. Normal [facility] XR KNEE LEFT 4+ VIEWSOrdered By: Allen Godinez on 02-28-2021 IMPRESSION: No acute bony abnormalities. [facility] EXAM: XR KNEE LEFT 4 + VIEWS 02/28/2021 12:35 PM EDT HISTORY: knee pain COMPARISON: None. TECHNIQUE: 5 views of the left knee. FINDINGS: No acute fractures, dislocations, or radiopaque foreign bodies. [facility] User, Interfaces - 02/28/2021 4:13 PM EDT EXAM: XR KNEE LEFT 4+ VIEWS 02/28/2021 12:35 PM EDT HISTORY: knee pain COMPARISON: None. TECHNIQUE: 5 views of the left knee. FINDINGS: No acute fractures, dislocations, or radiopaque foreign bodies. IMPRESSION IMPRESSION: No acute bony abnormalities. [facility] Vital Signs Date Time Vital Sign Value Performing Clinician Kimmiei helen 04-14-2025 11:17-0400 Body height 170.[address] Anastacio Lloyd MD Work Phone: [facility] 04-14-2025 11:12-0400 Body mass index (BMI) [Ratio] 29.1 kg/m2 Dr. Anastacio Lloyd MD Work Phone: [facility] 04-14-2025 11:12-0400 Body weight 84.[address] Anastacio Lloyd MD Work Phone: [facility] 04-14-2025 11:12-0400 Diastolic blood pressure 78 mm[Hg] Dr. Anastacio Lloyd MD Work Phone: [facility] 04-14-2025 11:12-0400 Systolic blood pressure 142 mm[Hg] Dr. Anastacio Lloyd MD Work Phone: [facility] 02-27-2025 11:35-0400 Body temperature 97 [degF] Dr. Anastacio Lloyd MD Work Phone: [facility] 02-27-2025 11:35-0400 Diastolic blood pressure 79 mm[Hg] Dr. Anastacio Lloyd MD Work Phone: [facility] 02-27-2025 11:35-0400 Heart rate 73 /min Dr. Anastacio Lloyd MD Work Phone: 2(798)050-329907 [place] [address] 02-27-2025 11:35-0400 Respiratory rate 16 /min Dr. Anastacio Lloyd MD Work Phone: 6(315)190-824707 [place] [address] 02-27-2025 11:35-0400 SaO2% (BldA) [Mass fraction] 94 % Dr. Anastacio Lloyd MD Work Phone: 3(124)053-808365 [place] [address] 02-27-2025 11:35-0400 Systolic blood pressure 111 mm[Hg] Dr. Anastacio Lloyd MD Work Phone: 2(361)728-350607 [place] [address] 02-05-2025 12:57-0400 Body mass index (BMI) [Ratio] 28.8 kg/m2 Dr. Anastacio Lloyd MD Work Phone: 9(352)122-307107 [place] [address] 02-05-2025 12:57-0400 Body temperature 97.8 [degF] Dr. Anastacio Lloyd MD Work Phone: 8(560)390-324307 [place] [address] 02-05-2025 12:57-0400 Body weight 83.[address] Anastacio Lloyd MD Work Phone: 5(485)081-128665 [place] [address] 02-05-2025 12:57-0400 Diastolic blood pressure 82 mm[Hg] Dr. Anastacio Lloyd MD Work Phone: 5(265)629-925444 [address] 02-05-2025 12:57-0400 Heart rate 76 /min Dr. Anastacio Lloyd MD Work Phone: 3(788)598-125965 [place] [address] 02-05-2025 12:57-0400 Respiratory rate 18 /min Dr. Anastacio Lloyd MD Work Phone: 1(263)550-108065 [place] [address] 02-05-2025 12:57-0400 SaO2% (BldA) [Mass fraction] 98 % Dr. Anastacio Lloyd MD Work Phone: [facility] 02-05-2025 12:57-0400 Systolic blood pressure 152 mm[Hg] Dr. Anastacio Lloyd MD Work Phone: [facility] 11-18-2024 16:15-0500 Body temperature 97.6 [degF] Dr. Anastacio Lloyd MD Work Phone: [facility] 11-18-2024 16:15-0500 Diastolic blood pressure 97 mm[Hg] Dr. Anastacio Lloyd MD Work Phone: [facility] 11-18-2024 16:15-0500 Heart rate 82 /min Dr. Anastacio Lloyd MD Work Phone: 0(249)583-086965 [place] [address] 11-18-2024 16:15-0500 Respiratory rate 16 /min Dr. Anastacio Lloyd MD Work Phone: 8(618)777-704865 [place] [address] 11-18-2024 16:15-0500 SaO2% (BldA) [Mass fraction] 98 % Dr. Anastacio Lloyd MD Work Phone: [facility] 11-18-2024 16:15-0500 Systolic blood pressure 147 mm[Hg] Dr. Anastacio Lloyd MD Work Phone: [facility] 11-18-2024 12:00-0500 Inhaled oxygen flow rate 4 L/min Dr. Anastacio Lloyd MD Work Phone: [facility] 11-18-2024 06:33-0500 Body height 170.[address] Anastacio Lloyd MD Work Phone: [facility] 11-18-2024 06:33-0500 Body mass index (BMI) [Ratio] 28.3 kg/m2 Dr. Anastacio Lloyd MD Work Phone: [facility] 11-18-2024 06:33-0500 Body weight [address] Anastacio lLoyd MD Work Phone: [facility] 02-18-2024 11:06-0400 Body height 170.[address] Anastacio Lloyd Work Phone: [facility] 02-18-2024 11:06-0400 Body mass index (BMI) [Ratio] 26.9 kg/m2 Dr. Anastacio Lloyd Work Phone: [facility] 02-18-2024 11:06-0400 Body weight 78.[address] Anastacio Lloyd Work Phone: 9(833)619-440265 [place] [address] 02-18-2024 11:06-0400 Diastolic blood pressure 72 mm[Hg] Dr. Anastacio Lloyd Work Phone: 9(290)234-245465 [place] [address] 02-18-2024 11:06-0400 Systolic blood pressure 130 mm[Hg] Dr. Anastacio Lloyd Work Phone: 2(703)168-568307 [place] [address] 01-01-2024 08:48-0500 Body height 170.[address] Anastacio Lloyd Work Phone: 3(406)797-171507 [place] [address] 01-01-2024 08:44-0500 Body mass index (BMI) [Ratio] 26.4 kg/m2 Dr. Anastacio Lloyd Work Phone: 7(099)172-520944 [address] 01-01-2024 08:44-0500 Body weight 76.[address] Anastacio Lloyd Work Phone: 7(061)862-566165 [place] [address] 01-01-2024 08:44-0500 Diastolic blood pressure 70 mm[Hg] Dr. Anastacio Lloyd Work Phone: 5(352)434-462565 [place] [address] 01-01-2024 08:44-0500 Systolic blood pressure 118 mm[Hg] Dr. Anastacio Lloyd Work Phone: 8(262)963-213765 [place] [address] 04-03-2023 10:33-0400 Body height 170.[address] Anastacio Lloyd Work Phone: 1(447)724-854165 [place] [address] 04-03-2023 10:28-0400 Body mass index (BMI) [Ratio] 27.1 kg/m2 Dr. Anastacio Lloyd Work Phone: 1(146)810-823565 [place] [address] 04-03-2023 10:28-0400 Body weight 78.[address] Anastacio Lloyd Work Phone: [facility] 04-03-2023 10:28-0400 Diastolic blood pressure 86 mm[Hg] Dr. Anastacio Lloyd Work Phone: [facility] 04-03-2023 10:28-0400 Systolic blood pressure 130 mm[Hg] Dr. Anastacio Lloyd Work Phone: [facility] 02-13-2023 15:12-0400 Body mass index (BMI) [Ratio] 26.6 kg/m2 Dr. Anastacio Lloyd Work Phone: [facility] 02-13-2023 15:12-0400 Body weight 77.[address] Anastacio Lloyd Work Phone: [facility] 02-13-2023 15:12-0400 Diastolic blood pressure 70 mm[Hg] Dr. Anastacio Lloyd Work Phone: [facility] 02-13-2023 15:12-0400 Systolic blood pressure 120 mm[Hg] Dr. Anastacio Lloyd Work Phone: [facility] 12-06-2022 14:50-0500 Body height 170.[address] Anastacio Lloyd Work Phone: [facility] 12-06-2022 14:50-0500 Body mass index (BMI) [Ratio] 26.6 kg/m2 Dr. Anastacio Lloyd Work Phone: [facility] 12-06-2022 14:50-0500 Body weight 77.[address] Anastacio Lloyd Work Phone: [facility] 04-12-2022 11:24-0400 Body temperature 99 [degF] Dr. Anastacio Lloyd Work Phone: [facility] Work Phone: 04-12-2022 11:24-0400 Diastolic blood pressure 86 mm[Hg] Dr. Anastacio Lloyd Work Phone: [facility] Work Phone: 04-12-2022 11:24-0400 Heart rate 93 /min Dr. Anastacio Lloyd Work Phone: [facility] Work Phone: 04-12-2022 11:24-0400 Respiratory rate 16 /min Dr. Anastacio Lloyd Work Phone: [facility] Work Phone: 04-12-2022 11:24-0400 SaO2% (BldA) [Mass fraction] 94 % Dr. Anastacio Lloyd Work Phone: [facility] Work Phone: 04-12-2022 11:24-0400 Systolic blood pressure 124 mm[Hg] Dr. Anastacio Lloyd Work Phone: [facility] Work Phone: 04-11-2022 13:32-0400 Body height 170.[address] Anastacio Lloyd Work Phone: [facility] Work Phone: 04-11-2022 13:32-0400 Body mass index (BMI) [Ratio] 27.9 kg/m2 Dr. Anastacio Lloyd Work Phone: [facility] Work Phone: 04-11-2022 13:32-0400 Body weight [address] Anastacio Lloyd Work Phone: [facility] Work Phone: 04-11-2022 13:32-0400 Inhaled oxygen flow rate 2 L/min Dr. Anastacio Lloyd Work Phone: [facility] Work Phone: 04-06-2022 09:25-0400 Body mass index (BMI) [Ratio] 27.8 kg/m2 Dr. Anastacio Lloyd Work Phone: [facility] Work Phone: 04-06-2022 09:25-0400 Body temperature 97.6 [degF] Dr. Anastacio Lloyd Work Phone: [facility] Work Phone: 04-06-2022 09:25-0400 Body weight 81.[address] Anastacio Lloyd Work Phone: [facility] Work Phone: 04-06-2022 09:25-0400 Diastolic blood pressure 77 mm[Hg] Dr. Anastacio Lloyd Work Phone: [facility] Work Phone: 04-06-2022 09:25-0400 Heart rate 80 /min Dr. Anastacio Lloyd Work Phone: [facility] Work Phone: 04-06-2022 09:25-0400 Respiratory rate 18 /min Dr. Anastacio Lloyd Work Phone: [facility] Work Phone: 04-06-2022 09:25-0400 SaO2% (BldA) [Mass fraction] 97 % Dr. Anastacio Lloyd Work Phone: [facility] Work Phone: 04-06-2022 09:25-0400 Systolic blood pressure 131 mm[Hg] Dr. Anastacio Lloyd Work Phone: [facility] Work Phone: 04-06-2022 09:25-0400 Body mass index (BMI) [Ratio] 27.8 kg/m2 Dr. Anastacio Lloyd Work Phone: [facility] Work Phone: 04-06-2022 09:25-0400 Body temperature 97.6 [degF] Dr. Anastacio Lloyd Work Phone: [facility] Work Phone: 04-06-2022 09:25-0400 Body weight 81.[address] Anastacio Lloyd Work Phone: [facility] Work Phone: 04-06-2022 09:25-0400 Diastolic blood pressure 77 mm[Hg] Dr. Anastacio Lloyd Work Phone: [facility] Work Phone: 04-06-2022 09:25-0400 Heart rate 80 /min Dr. Anastacio Lloyd Work Phone: [facility] Work Phone: 04-06-2022 09:25-0400 Respiratory rate 18 /min Dr. Anastacio Lloyd Work Phone: [facility] Work Phone: 04-06-2022 09:25-0400 SaO2% (BldA) [Mass fraction] 97 % Dr. Anastacio Lloyd Work Phone: [facility] Work Phone: 04-06-2022 09:25-0400 Systolic blood pressure 131 mm[Hg] Dr. Anastacio Lloyd Work Phone: [facility] Work Phone: 12-29-2021 07:56-0500 Body temperature 97.7 [degF] Dr. Anastacio Lloyd Work Phone: [facility] Work Phone: 12-29-2021 07:56-0500 Diastolic blood pressure 76 mm[Hg] Dr. Anastacio Lloyd Work Phone: [facility] Work Phone: 12-29-2021 07:56-0500 Heart rate 53 /min Dr. Anastacio Lloyd Work Phone: [facility] Work Phone: 12-29-2021 07:56-0500 Respiratory rate 16 /min Dr. Anastacio Lloyd Work Phone: [facility] Work Phone: 12-29-2021 07:56-0500 SaO2% (BldA) [Mass fraction] 95 % Dr. Anastacio Lloyd Work Phone: [facility] Work Phone: 12-29-2021 07:56-0500 Systolic blood pressure 128 mm[Hg] Dr. Anastacio Lloyd Work Phone: [facility] Work Phone: 12-19-2021 12:40-0500 Body height 171.[address] Anastacio Lloyd Work Phone: [facility] Work Phone: 12-19-2021 12:40-0500 Body mass index (BMI) [Ratio] 26.7 kg/m2 Dr. Anastacio Lloyd Work Phone: [facility] Work Phone: 12-19-2021 12:40-0500 Body temperature 97.3 [degF] Dr. Anastacio Lloyd Work Phone: [facility] Work Phone: 12-19-2021 12:40-0500 Body weight 78.[address] Anastacio Lloyd Work Phone: [facility] Work Phone: 12-19-2021 12:40-0500 Diastolic blood pressure 75 mm[Hg] Dr. Anastacio Lloyd Work Phone: [facility] Work Phone: 12-19-2021 12:40-0500 Heart rate 74 /min Dr. Anastacio Lloyd Work Phone: [facility] Work Phone: 12-19-2021 12:40-0500 Respiratory rate 18 /min Dr. Anastacio Lloyd Work Phone: [facility] Work Phone: 12-19-2021 12:40-0500 SaO2% (BldA) [Mass fraction] 100 % Dr. Anastacio Lloyd Work Phone: [facility] Work Phone: 12-19-2021 12:40-0500 Systolic blood pressure 128 mm[Hg] Dr. Anastacio Lloyd Work Phone: [facility] Work Phone: 12-02-2021 09:41-0500 Body temperature 96.7 [degF] Dr. Anastacio Lloyd Work Phone: [facility] Work Phone: 12-02-2021 09:41-0500 Diastolic blood pressure 85 mm[Hg] Dr. Anastacio Lloyd Work Phone: [facility] Work Phone: 12-02-2021 09:41-0500 Heart rate 58 /min Dr. Anastacio Lloyd Work Phone: [facility] Work Phone: 12-02-2021 09:41-0500 Respiratory rate 16 /min Dr. Anastacio Lloyd Work Phone: [facility] Work Phone: 12-02-2021 09:41-0500 SaO2% (BldA) [Mass fraction] 99 % Dr. Anastacio Lloyd Work Phone: [facility] Work Phone: 12-02-2021 09:41-0500 Systolic blood pressure 150 mm[Hg] Dr. Anastacio Lloyd Work Phone: [facility] Work Phone: 12-02-2021 06:37-0500 Body mass index (BMI) [Ratio] 26.2 kg/m2 Dr. Anastacio Lloyd Work Phone: [facility] Work Phone: 12-02-2021 06:37-0500 Body weight 76.[address] Anastacio Lloyd Work Phone: [facility] Work Phone: 11-11-2021 07:38-0500 Body mass index (BMI) [Ratio] 27.3 kg/m2 Dr. Anastacio Lloyd Work Phone: [facility] Work Phone: 11-11-2021 07:38-0500 Body temperature 97.3 [degF] Dr. Anastacio Lloyd Work Phone: [facility] Work Phone: 11-11-2021 07:38-0500 Body weight 79.[address] Anastacio Lloyd Work Phone: [facility] Work Phone: 11-11-2021 07:38-0500 Diastolic blood pressure 88 mm[Hg] Dr. Anastacio Lloyd Work Phone: [facility] Work Phone: 11-11-2021 07:38-0500 Heart rate 97 /min Dr. Anastacio Lloyd Work Phone: [facility] Work Phone: 11-11-2021 07:38-0500 Respiratory rate 16 /min Dr. Anastacio Lloyd Work Phone: [facility] Work Phone: 11-11-2021 07:38-0500 SaO2% (BldA) [Mass fraction] 96 % Dr. Anastacio Lloyd Work Phone: [facility] Work Phone: 11-11-2021 07:38-0500 Systolic blood pressure 154 mm[Hg] Dr. Anastacio Lloyd Work Phone: [facility] Work Phone: 03-30-2021 15:12-0400 Body height 171.5 cm Allen Godinez Jr., DO Work Phone: [facility] 03-30-2021 15:12-0400 Body mass index (BMI) [Ratio] 24.69 kg/m2 Allen Godinez Jr., DO Work Phone: [facility] 03-30-2021 15:12-0400 Body temperature 98.2 [degF] Allen Godinez Jr., DO Work Phone: [facility] 03-30-2021 15:12-0400 Body weight 72.58 kg Allen Gomesjulia , DO Work Phone: [facility] 03-30-2021 15:12-0400 Diastolic blood pressure 70 mm[Hg] Allen Godinez , DO Work Phone: [facility] 03-30-2021 15:12-0400 Heart rate 61 /min Allen Godinez Sanjay, DO Work Phone: [facility] 03-30-2021 15:12-0400 SaO2% (BldA) [Mass fraction] 97 % Allen Godinez Sanjay, DO Work Phone: [facility] 03-30-2021 15:12-0400 Systolic blood pressure 124 mm[Hg] Allen Godinez Jr., DO Work Phone: [facility] 02-28-2021 11:00-0400 Body height 171.5 cm Allen Godinez Sanjay, DO Work Phone: [facility] 02-28-2021 11:00-0400 Body mass index (BMI) [Ratio] 24.69 kg/m2 Allen Godinez Sanjay, DO Work Phone: [facility] 02-28-2021 11:00-0400 Body temperature 97.2 [degF] Allen Godinez Jr., DO Work Phone: [facility] 02-28-2021 11:00-0400 Body weight 72.58 kg Allen Godinez Jr., DO Work Phone: [facility] 02-28-2021 11:00-0400 Diastolic blood pressure 80 mm[Hg] Allen Godinez Jr., DO Work Phone: [facility] 02-28-2021 11:00-0400 Heart rate 64 /min Allen Godinez Jr., DO Work Phone: [facility] 02-28-2021 11:00-0400 SaO2% (BldA) [Mass fraction] 98 % Allen Godinez Jr., DO Work Phone: [facility] 02-28-2021 11:00-0400 Systolic blood pressure 132 mm[Hg] Allen Godinez Jr., DO Work Phone: [facility] Encounters Encounter Date Encounter Type Care Provider Facility Start: 05-27-2025 ambulatory Maribel Dedham Facility :[facility] Start: 04-14-2025 End: 04-14-2025 Patient encounter procedure Maribel Delgado MANAGER PROCESS IMPROVEMENT-C -[facility] Work Phone: Start: 04-14-2025 End: 04-14-2025 Patient encounter status Maribel Delgado MANAGER PROCESS IMPROVEMENT-C [facility] Start: 04-14-2025 End: 04-14-[address] Anastacio Lloyd MD Work Phone: [facility] Work Phone: Start: 02-27-2025 ambulatory Anastacio Lloyd Facilit y:[facility] Start: 02-27-2025 Non-patient / Non-visit Dr. Duane GATES [facility] Start: 02-27-2025 End: 02-27-2025 Admission to same day surgery center Dr. Vernon Canas MD -Endoscopy Work Phone: Start: 02-27-2025 End: 02-27-2025 ambulatory Anastacio Lloyd Facility:[facility] Start: 02-05-2025 End: 02-05-[address] Vernon Canas MD -[facility] Work Phone: Start: 02-05-2025 End: 02-05-2025 ambulatory Anastacio Lloyd Facility:[facility] Start: 01-14-2025 End: 01-14-[address] Anastacio Lloyd MD Work Phone: [facility] Work Phone: Start: 01-14-2025 End: 01-14-[address] Anastacio Lloyd MD -Laboratory, [facility] Start: 01-14-2025 End: 01-14-2025 ambulatory Anastacio Lloyd Facility:[facility] Start: 12-29-2024 End: 12-29-[address] Yadiel Quinn DO -[facility] Work Phone: Start: 12-29-2024 End: 12-29-2024 ambulatory Anastacio Lloyd Facility:[facility] Start: 12-18-2024 End: 12-18-2024 ambulatory Anastacio Lloyd Facility:[facility] Start: 12-18-2024 End: 12-18-[address] Yadiel Quinn DO -Physical Therapy Work Phone: Start: 12-11-2024 Encounter for other preprocedural examination [facility] Start: 12-01-2024 Encounter for other preprocedural examination [facility] Start: 12-01-2024 End: 12-01-[address] Yadiel Quinn DO -[facility] Work Phone: Start: 12-01-2024 End: 12-01-2024 ambulatory Anastacio Lloyd Facility:[facility] Start: 11-18-2024 ambulatory Anastacio Lloyd Facilit y:[facility] Start: 11-18-2024 Non-patient / Non-visit Dr. Nicky Quinn DO -[facility] Start: 11-18-2024 End: 11-18-2024 Admission to same day surgery center Dr. Yadiel Quinn DO -[facility] Start: 11-18-2024 End: 11-18-2024 ambulatory Anastacio Lloyd Facility:[facility] Start: 11-10-2024 End: 11-10-[address] [facility] Start: 11-10-2024 End: 11-10-2024 ambulatory Anastacio Lloyd Facility:[facility] Start: 09-15-2024 End: 09-15-2024 ambulatory Anastacio Lloyd Facility:[facility] Start: 09-15-2024 End: 09-15-2024 ambulatory Anastacio Lloyd Facility:[facility] Start: 09-05-2024 End: 09-05-2024 ambulatory Chi Black Facility:[facility] Start: 09-01-2024 End: 09-01-2024 ambulatory Anastacio Lloyd Facility:[facility] Start: 08-25-2024 End: 08-25-2024 ambulatory Anastacio Lloyd Facility:[facility] Start: 08-13-2024 End: 08-13-2024 ambulatory Anastacio Lloyd Facility:[facility] Start: 06-06-2024 End: 06-06-2024 ambulatory Anastacio Lloyd Facility:[facility] Start: 06-04-2024 End: 06-04-2024 ambulatory Anastacio Lloyd Facility:[facility] Start: 05-27-2024 End: 05-27-2024 ambulatory [facility] Lloyd Facility:[facility] Start: 05-26-2024 End: 05-26-2024 ambulatory Maribel Dedham Facility:[facility] Start: 02-18-2024 End: 02-18-[address] Anastacio Lloyd Work Phone: [facility] Work Phone: Start: 02-18-2024 End: 02-18-[address] Anastacio Lloyd Work Phone: [facility]-Laboratory, Specimen Work Phone: Start: 02-18-2024 End: 02-18-[address] Anastacio Lloyd Work Phone: [facility] Work Phone: Start: 01-01-2024 End: 01-01-[address] Anastacio Lloyd Work Phone: [facility] Work Phone: Start: 01-01-2024 End: 01-01-[address] Anastacio Lloyd Work Phone: [facility], Specimen Work Phone: Start: 01-01-2024 End: 01-01-[address] Anastacio Lloyd Work Phone: [facility] Work Phone: Start: 11-20-2023 End: 11-20-2023 ambulatory [facility] Work Phone: Start: 11-20-2023 End: 11-20-2023 Patient encounter procedure [facility] Start: 06-21-2023 End: 06-21-[address] Anastacio Lloyd Work Phone: [facility] Work Phone: Start: 06-21-2023 End: 06-21-[address] Anastacio Lloyd Work Phone: [facility] Start: 06-04-2023 End: 06-04-[address] Anastacio Lloyd Work Phone: [facility] Work Phone: Start: 06-04-2023 End: 06-04-[address] Anastacio Lloyd Work Phone: [facility]-Cat Scan, [facility] Work Phone: Start: 05-24-2023 End: 05-24-[address] Anastacio Lloyd Work Phone: [facility]-Outpatient Breast Imaging Work Phone: Start: 05-23-2023 End: 05-23-[address] Anastacio Lloyd Work Phone: [facility] Start: 04-03-2023 End: 04-03-[address] Anastacio Lloyd Work Phone: [facility] Work Phone: Start: 02-13-2023 End: 02-13-[address] Anastacio Lloyd Work Phone: [facility] Work Phone: Start: 01-12-2023 End: 01-12-[address] Anastacio Lloyd Work Phone: [facility] Work Phone: Start: 01-12-2023 End: 01-12-[address] Anastacio Lloyd Work Phone: [facility]-Physical Therapy Start: 12-06-2022 End: 12-06-[address] Anastacio Lloyd Work Phone: [facility] Start: 11-24-2022 End: 11-24-2022 ambulatory [facility] Work Phone: Start: 11-24-2022 End: 11-24-2022 Patient encounter procedure [facility] Start: 08-08-2022 End: 08-08-[address] Anastacio Lloyd Work Phone: [facility] Work Phone: Start: 08-08-2022 End: 08-08-[address] Anastacio Lloyd [facility] Phone[facility] Start: 07-24-2022 End: 07-24-[address] Anastacio Lloyd Work Phone: [facility] Start: 05-23-2022 End: 05-23-[address] Anastacio Lloyd Work Phone: [facility]-Outpatient Breast Imaging Start: 04-25-2022 End: 04-25-[address] Anastacio Lloyd Work Phone: [facility] Start: 04-12-2022 Non-patient / Non-visit Dr. Nicky Lloyd Work Phone: [facility] Start: 04-11-2022 End: 04-12-2022 Evaluation and management of inpatient Dr. Anastacio Lloyd Work Phone: [facility]-Medical Surgical 3 Start: 04-11-2022 Non-patient / Non-visit Dr. Nicky Lloyd Work Phone: [facility] Start: 04-06-2022 End: 04-06-[address] Anastacio Lloyd Work Phone: [facility] Start: 04-06-2022 Non-patient / Non-visit Dr. Nicky Lloyd Work Phone: [facility] Start: 01-25-2022 End: 01-25-[address] Anastacio Lloyd Work Phone: [facility] Start: 01-04-2022 End: 01-04-[address] Anastacio Lloyd Work Phone: [facility] Start: 12-29-2021 End: 12-29-2021 Admission to same day surgery center Dr. Anastacio Lloyd Work Phone: [facility]-Endoscopy Start: 12-27-2021 End: 12-27-[address] Anastacio Lloyd Work Phone: [facility] Start: 12-19-2021 End: 12-19-[address] Anastacio Lloyd Work Phone: [facility] Start: 12-19-2021 End: 12-19-[address] Anastacio Lloyd Work Phone: [facility] Start: 12-02-2021 Non-patient / Non-visit Dr. Nicky Lloyd Work Phone: [facility] Start: 12-02-2021 End: 12-02-2021 Admission to same day surgery center Dr. Anastacio Lloyd Work Phone: [facility]-Endoscopy Start: 11-11-2021 Non-patient / Non-visit Dr. Nicky Lloyd Work Phone: [facility] Start: 11-11-2021 End: 11-11-[address] Anastacio Lloyd Work Phone[facility] Start: 11-11-2021 End: 11-11-[address] Anastacio Lloyd Work Phone: [facility] Start: 10-25-[address] Anastacio Lloyd Work Phone: [facility] Start: 10-20-[address] Anastacio Lloyd Work Phone[facility] Start: 10-17-[address] Anastacio Lloyd Work Phone: [facility]-Laboratory Start: 03-30-2021 End: 03-30-2021 Office outpatient visit 25 minutes Allen Godinez DO Work Phone: [facility] Rheumatology Comment on above: Vitamin D deficiency (Primary Dx); Primary osteoarthritis of both hands; Primary osteoarthritis of both feet; Primary osteoarthritis of both hips; Acute cystitis with hematuria; AKASH positive; custodial current use of non-steroidal anti-inflammatories (NSAID); Elevated BUN Start: 02-28-2021 End: 02-28-2021 Subsequent hospital visit by physician Allen Godinez DO Work Phone: [facility] Diagnostic Radiology Comment on above: Canceled (Cancel Cecelia son Not Listed - Please provide detailed information) Arrived Start: 02-28-2021 End: 02-28-2021 Office outpatient new 45 minutes Allen Krause Gretchen MEDINA Work Phone: [facility] Rheumatology Comment on above: Cervicalgia (Primary Dx); Disorder of bone and cartilage; Primary osteoarthritis of both hands; Bilateral hip pain; Chronic pain of left knee; Primary osteoarthritis of both feet; Fatigue, unspecified type; AKASH positive; custodial current use of non-steroidal anti-inflammatories (NSAID); Arterial [...] Egd transoral biopsy single/multiple EGD BIOPSY SINGLE/MULTIPLE [facility] Start: 02-27-2025 Patient discharge [facility] Start: 11-18-2024 Anesthesia open total hip arthroplasty ANESTH HIP ARTHROPLASTY [facility] Start: 11-18-2024 Arthrp acetblr/prox fem prostc agrft/algrft TOTAL HIP ARTHROPLASTY [facility] Start: 11-18-2024 Application of ice collar, cap or bag [facility] Start: 11-18-2024 Exercises [facility] Start: 11-18-2024 Incentive spirometry [facility] Start: 11-18-2024 Neurovascular assessment [facility] Start: 11-18-2024 Patient discharge [facility] Start: 11-18-2024 Patient education [facility] Start: 11-18-2024 Provision of activity privileges [facility] Start: 11-18-2024 Recommendation to continue with treatment [facility] Start: 11-18-2024 Referral to service [facility] Start: 11-18-2024 Vital signs measurements [facility] Start: 11-18-2024 Wound care [facility] Start: 11-18-2024 [facility] Start: 12-06-2022 Patient referral [facility] Work Phone: Start: 04-12-2022 [facility] Work Phone: Start: 04-12-2022 End: 04-12-2022 Provision of activity privileges [facility] Work Phone: Start: 04-12-2022 Patient discharge [facility] Work Phone: Start: 04-11-2022 [facility] Work Phone: Start: 04-11-2022 Anes intraperitoneal upper abdomen w/laps nos ANESTH SURG UPPER ABDOMEN [facility] Work Phone: Start: 04-11-2022 Laps rpr paraesphgl hrna incl fundplsty w/o mesh LAP PARAESOPHAG JANIS REPAIR [facility] Work Phone: Start: 04-11-2022 End: 04-11-2022 Provision of activity privileges [facility] Work Phone: Start: 04-11-2022 Following clinical pathway protocol [facility] Work Phone: Start: 04-11-2022 Ambulation without limitation [facility] Work Phone: Start: 04-11-2022 Application of intermittent pneumatic compression device [facility] Work Phone: Start: 04-11-2022 Catheterization of vein [facility] Work Phone: Start: 04-11-2022 Incentive spirometry [facility] Work Phone: Start: 04-11-2022 Nil by mouth [facility] Work Phone: Start: 04-11-2022 Notification of physician [facility] Work Phone: Start: 04-11-2022 Vital signs measurements [facility] Work Phone: Start: 04-11-2022 [facility] Work Phone: Start: 04-11-2022 Admission procedure [facility] Work Phone: Start: 12-29-2021 Esophageal motility study w/interp&rpt ESOPHAGUS MOTILITY STUDY [facility] Work Phone: Start: 12-02-2021 Colonoscopy flx dx w/collj spec when pfrmd DIAGNOSTIC COLONOSCOPY [facility] Work Phone: Start: 12-02-2021 Egd transoral biopsy single/multiple EGD BIOPSY SINGLE/MULTIPLE [facility] Work Phone: Start: 07-06-2021 Influenza vaccination INFLUENZA VACCINE (Season Ended) [facility] Start: 03-30-2021 End: 03-30-2021 Patient encounter procedure 03/30/2021 Office Visit Rheumatology Gretchen Ann, Allen Krause, DO [address] [place] [address] [facility] Rhe[facility] Start: 02-28-2021 End: 02-28-2022 Radiography of hip [facility] Comment on above: Expected: 02/28/2021, Expires: 04/26/202 2 1 Occurrences starti ng 02/28/2021 until 02/28/2021 Start: 2020 Pneumococcal vaccination PNEUMOCOCCAL VACCINE SERIES (1 of 2 - PCV13) [facility] Start: 2005 Colonoscopy COLORECTAL CANCER SCREENING DISCUSSION [facility] Start: 2005 Zoster vaccine hzv live for subcutaneous use ZOSTER (SHINGLES) VACCINE (1 of 2) [facility] Start: 1995 Fasting lipid profile LIPID SCREENING [facility] Start: 1995 Screening mammography MAMMOGRAM SCREENING DISCUSSION [facility] Start: 1976 Screening for malignant neoplasm of cervix CERVICAL CANCER SCREENING DISCUSSION [facility] Start: 1974 Third diphtheria, tetanus and acellular pertussis (DTaP) vaccination TDAP (ADULT) [facility] Start: 1973 Tetanus vaccination TETANUS [facility] Start: 1971 COVID-19 VACCINE (1) COVID-19 VACCINE (1) [facility] Start: 1967 COVID-19 VACCINE (1) COVID-19 VACCINE (1) [facility] Start: 1955 Hepatitis C antibody, confirmatory test HEPATITIS C VIRUS SCREENING [facility] Start: 1955 Screening for osteoporosis DEXA SCAN DISCUSSION [facility] AKASH MULTIPLEX SCRN W ITH REFLEX AKASH MULTIPLEX SCRN WITH REFLEX Lab Routine Cervicalgia Disorder of bone and cartilage Primary osteoarthritis of both hands Bilateral hip pain Chronic pain of left knee Primary osteoarthritis of both feet Fatigue, unspecified type AKASH positive custodial current use of non-steroidal anti-inflammatories (NSAID) Arterial bruit 02/28/2021 12:22 PM EDT [facility] ANCA INIT SCRN (ANCA , PR3AB, MPO) ANCA INIT SCRN (ANCA, PR3AB, MPO) Lab Routine Cervicalgia Disorder of bone and cartilage Primary osteoarthritis of both hands Bilateral hip pain Chronic pain of left knee Primary osteoarthritis of both feet Fatigue, unspecified type AKASH positive custodial current use of non-steroidal anti-inflammatories (NSAID) Arterial bruit 02/28/2021 12:22 PM EDT [facility] Angiotensin converti ng enzyme [Enzymatic activity/volume] in Serum or Plasma ANGIOTENSIN CONVERTING ENZYME Lab Routine Cervicalgia Disorder of bone and cartilage Primary osteoarthritis of both hands Bilateral hip pain Chronic pain of left knee Primary osteoarthritis of both feet Fatigue, unspecified type AKASH positive custodial current use of non-steroidal anti-inflammatories (NSAID) Arterial bruit 02/28/2021 12:22 PM [facility] Bacteria identified in Urine by Culture URINE CULTURE Microbiology Routine 02/28/2021 2:37 PM [facility] C3 COMPLEMENT C3 COMPLEMENT La b Routine Cervicalgia Disorder of bone and cartilage Primary osteoarthritis of both hands Bilateral hip pain Chronic pain of left knee Primary osteoarthritis of both feet Fatigue, unspecified type AKASH positive custodial current use of non-steroidal anti-inflammatories (NSAID) Arterial bruit 02/28/2021 12:22 PM [facility] C4 COMPLEMENT C4 COMPLEMENT La b Routine Cervicalgia Disorder of bone and cartilage Primary osteoarthritis of both hands Bilateral hip pain Chronic pain of left knee Primary osteoarthritis of both feet Fatigue, unspecified type AKASH positive 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) Arterial bruit 02/28/2021 12:22 PM [facility] CYCLIC CITRULLINATE PEPTIDE AB CYCLIC CITRULLINATE PEPTIDE AB Lab Routine Cervicalgia Disorder of bone and cartilage Primary osteoarthritis of both hands Bilateral hip pain Chronic pain of left knee Primary osteoarthritis of both feet Fatigue, unspecified type AKASH positive 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) Arterial bruit 02/28/2021 12:22 PM [facility] Electrocardiographic procedure [facility] Work Phone: Electrocardiographic procedure [facility] ISATU AND PE, SERUM ISATU AND PE, SE RUM Lab Routine Cervicalgia Disorder of bone and cartilage Primary osteoarthritis of both hands Bilateral hip pain Chronic pain of left knee Primary osteoarthritis of both feet Fatigue, unspecified type AKASH positive custodial current use of non-steroidal anti-inflammatories (NSAID) Arterial bruit 02/28/2021 12:22 PM [facility] Patient referral [facility] Work Phone: T-TRANSGLUTAMINASE IGA AB T-CANAS SGLUTAMINASE IGA AB Lab Routine Cervicalgia Disorder of bone and cartilage Primary osteoarthritis of both hands Bilateral hip pain Chronic pain of left knee Primary osteoarthritis of both feet Fatigue, unspecified type AKASH positive custodial current use of non-steroidal anti-inflammatories (NSAID) Arterial bruit 02/28/2021 12:22 PM EDT [facility] VITAMIN D, (1,25 DIHYDROXY) NONA MIN D, (1,25 DIHYDROXY) Lab Routine Cervicalgia Disorder of bone and cartilage Primary osteoarthritis of both hands Bilateral hip pain Chronic pain of left knee Primary osteoarthritis of both feet Fatigue, unspecified type AKASH positive custodial current use of non-steroidal anti-inflammatories (NSAID) Arterial bruit 02/28/2021 12:22 PM EDT [facility] Payers Date Payer Category Payer Medicare [id number] 2024 Self-pay [id number] 2024 Unknown [id number] 2021 Medicare MEDICARE MEDICAR E A AND B [id number] 2021-Present [place] [id number] 2020 Unknown GENERIC PAYOR ME DICARE SUPPLEMENT [id number] 2020-Present [id number]. [id number] Unknown [id number] Unknown [id number] Unknown [id number] .0.1.886278.3.579.2.462 Unknown [id number] 12.21.830.1.501894.3.579.2.462 Unknown [id number] 12.21.830.1.153000.3.579.2.462 Unknown [id number] 2.16.840.1.535130.3.579.2.462 Unknown [id number] 2.16.840.1.273166.3.579.2.462 Unknown [id number] 2.16.840.1.485229.3.579.2.462 Unknown [id number] 2.16.840.1.474580.3.579.2.462 Unknown [id number] 2.16.840.1.103492.3.579.2.462 Unknown [id number] 2.16.840.1.210027.3.579.2.462 Unknown [id number] 2.16840.1.949230.3.579.2.462 Unknown [id number] 2.840.1.009104.3.579.2.462 Unknown [id number] 2.840.1.043495.3.579.2.462 Unknown [id number] 2..840.1.026226.3.579.2.462 Unknown [id number] 2.16.840.1.906968.3.579.2.462 Unknown [id number] 2.16.840.1.236509.3.579.2.462 Unknown [id number] 2.16.840.1.581925.3.579.2.462 Unknown [id number] 2.16.840.1.798878.3.579.2.462 Unknown [id number] 2.16.840.1.773288.3.579.2.462 Unknown [id number] 2.16.840.1.535386.3.579.2.462 Unknown [id number] 2.16.840.1.229101.3.579.2.462 Unknown [id number] 2.16.840.1.438094.3.579.2.462 Unknown [id number] 2.16.840.1.027456.3.579.2.462 Unknown [id number] 2.16.840.1.170784.3.579.2.462 Unknown [id number] 2.16.840.1.821910.3.579.2.462 Social History Date Type Detail Facility Start: 02-28-2021 End: 03-30-2021 Tobacco smoking status NHIS Current every day smoker [id number] History of tobacco use Cigarette Smoker A [employer] [facility] Start: 02-28-2021 End: 03-30-2021 Cigarettes smoked current (pack per day) - Reported [employer] Start: 02-28-2021 End: 03-30-2021 Tobacco use and exposure Never used [employer] Start: 02-28-2021 End: 03-30-2021 Alcohol intake Lifetime non-drinker (finding) [facility] Start: 02-28-2021 History SDOH Alcohol Frequency 1 [facility] Start: 1955 Sex Assigned At Not on file A [facility] Start: 01-04-2022 End: 02-18-2024 Tobacco smoking status NHIS Unknown if ever smoked [facility] Start: 1955 Sex Assigned At Female W [facility] Start: 10-27-2024 End: 02-23-2025 Tobacco smoking status NHIS Ex-smoker (finding) [facility] Start: 01-23-2025 Sex Female (finding) [facility] NEGATED: Highlighted row Not [facility] Medical Equipment Procedure Code Equipment Code Equipment Origin al Text Equipment Identifier Dates Gloria fundoplication PLEDGET,SO FT 8x8x1.6mm FDA Start: 04-11-2022 Gloria fundoplication PLEDGET,SO FT 8x8x1.6mm FDA Start: 04-11-2022 Gloria fundoplication PLEDGET,SO FT 8x8x1.6mm FDA Start: 04-11-2022 Gloria fundoplication Ligation c lip, synthetic polymer, non-bioabsorbable ()[id number] FDA Start: 04-11-2022 Gloria fundoplication PLEDGET,SO FT [...] fundoplication PLEDGET,SO FT 8x8x1.6mm FDA Start: 04-11-2022 Gloira fundoplication PLEDGET,SO FT 8x8x1.6mm FDA Start: 04-11-2022 Arthroplasty, hip, total, using robot-assisted navigation Accolade 127 degree Neck Angle Hip Stem FDA Start: 11-18-2024 Arthroplasty, hip, total, using robot-assisted navigation Trident II Tritanium Clusterhole Acetabular Shell FDA Start: 11-18-2024 Arthroplasty, hip, total, using robot-assisted navigation Trident X3 10 degree Polyethylene insert FDA Start: 11-18-2024 Arthroplasty, hip, total, using robot-assisted navigation ([id number]) Ceramic femoral head prosthesis ([id number] FDA Start: 11-18-2024 Arthroplasty, hip, total, using robot-assisted navigation ([id number]) Orthopaedic bone screw, non-bioabsorbable, sterile ()[id number] 2 FDA Start: 11-18-2024 Arthroplasty, hip, total, using robot-assisted navigation ([id number]) Orthopaedic bone screw, non-bioabsorbable, sterile ()[id number] 2 FDA Start: 11-18-2024 Arthroplasty, hip, total, [...] Facility 04-12-2022 Functional status Ambulates;Bathroom Priv ilege [facility] Work Phone: Mental Status Date Assessment Result Facility 02-27-2025 Cognitive function [facility] Work Phone: 11-18-2024 Cognitive function Voice/Name [facility] Work Phone: 04-12-2022 Cognitive function Voice/Name [facility] Work Phone: 12-29-2021 Cognitive function Awake;Alert;A ppropriate;Follo ws Commands [facility] Work Phone: 12-02-2021 Cognitive function Level Of Cons ciousness Sedated [facility] Work Phone: 12-02-2021 Cognitive function Voice/Name [facility] Work Phone: Clinical Notes 02-28-2021 to 02-27-2025 Note Date & Type Note Facility 02-27-2025 Note [facility] Medical Records Department [address] [place] [address] History Physical Exam 02/27/25 1051 MR#: [id number] Acct: [id number] Name: PILAR PERSAUD Rep #: [id number] : 1955 69 From: Vernon Canas MD PCP: Dr. Anastacio Lloyd MD Status:[facility] Location: [place] [address] HPI - General General Date of Admission: [...] in 2021 as well. This was unremarkable. [facility] Medical History Former smoker Post-menopausal Vertigo PONV [...] DRY 04/09/22 History (12 Hour Nasal Relief [place]) NOSE aspirin 81 mg tablet 81 mg [...] denosumab 60 mg/mL subcutaneous 60 mg subcut [id number] 08/25/24 Unk nown History syringe (Prolia) calcium [...] Dr. Vernon Flowers (more content not included)... [facility] 12-29-2024 Evaluation note Diagnosis Onset Date Resolution Orthopedic aftercare acute Febr ry 2024 10:20am Izaguirre's esophagus determined by biopsy acute February 05, 2025 12:45pm Izaguirre's esophagus determined by biopsy acute February 27, 2025 9:46am Encounter for routine gynecological examination noneactive April 14, 2025 11:10am [facility] Work Phone: 1(479) 814-559901-27-2025 Evaluation note* Diagnosis Onset Date Resolution Status Admit Date Orthopedic aftercare acute Irving carlo 2024 10:13am Orthopedic aftercare acute Febr uary 2024 10:20am [facility] Work Phone: 1(361) 356-114601-14-2025 [facility] Medical Records Department [address] [place] [address] History Physical Exam 11/18/24 0718 MR#: [id number] Acct: [id number] Name: SHAWANDAPILARLAINEY CONTRERAS Rep #: [id number] : 1955 69 From: Yadiel Quinn DO PCP: Dr. Anastacio Lloyd MD Status:[facility] Location: [place] [address] History and Physical Date of Admission: 11/18/24 [facility] [address] [place] [address] OFFICE VISIT Date of Service: 09/15/24 MR#: [id number] Acct: [id number] Name: PILAR PERSAUD Rep #: [id number] : 1955 Provider: Dr. Yadiel Quinn DO Age/Sex: 69/F Location: [facility] Status: Signed Intake Vital Signs 08/13/2410:50 Height [...] 11/11/21 09/15/24 History (12 Hour Nasal Relief [place]) NOSE aspirin 81 mg tablet 81 mg [...] denosumab 60 mg/mL subcutaneous 60 mg subcut [id number] 08/25/24 09/15/24 History syringe (Prolia) Have you [...] pain with weight (more content not included)... [facility]03-10-2023 [facility]charge [facility] January 12, 2023 12:13pm Note Date/Time January 12, 2023 12: 13pm [facility] Physical Therapy [facility] [address] [place] [address] / REHABILITATION SERVICES DISCHARGE SUMMARY MR#: [id number] Acct: [id number] Name: PILAR PERSAUD Rep #: [id number] [...] please feel free to call me at [phone]. Thank you for the referral of thispatient. Sincerely, Aorn Patino, DPT, OCS, CSCS Balance/Gait/Functional tests - Balance/Special Test Scores Oswestry Low Back Score: 15 <Electronically signed by Aron Patino DPT, OCS, CSCS> 01/12/23 1213 CC: Dr. Anastacio Lloyd MD; Dr. Yadiel Quinn, DO ~ EBG Signed [facility] Work Phone: 1(833) 109-375405-26-2021 History of Present illness Narrative* Kielphil Allen, [...] present. Gait: Gait is intact. Comments: Decreased endoscopy rn strength both hands Psychiatric: Mood and Affect: [...] hips Acute cystitis with hematuria AKASH positive custodial current use of non-steroidal anti-inflammatories (NSAID) Elevated [...] lupus 3. Patient is taking Saline Nasal [place] 4. Ua showed E. Coli UTI treated [...] her [facility] care. [facility] History of Present illness Narrative* Allen Godinez [...] Reflexes are normal and symmetric. Comments: Decreased endoscopy rn strength both hands Psychiatric: Mood and Affect: [...] both feet Fatigue, unspecified type AKASH positive custodial current use of non-steroidal anti-inflammatories (NSAID) Arterial [...] 2 pills a day [facility]* Diagnosis Cervicalgia- Primary Disorder of bone and cartilage Disorder of bone and cartilage, unspecified Primary osteoarthritis of both hands Bilateral hip pain Pain in joint, pelvic region and thigh Chronic pain of left knee Pain in joint, lower leg Primary osteoarthritis of both feet Fatigue, unspecified type AKASH positive Other and unspecified nonspecific immunological findings 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) Encounter for long-term (current) use of non-steroidal anti-inflammatories Arterial bruit Other symptoms involving cardiovascular system [facility] this [facility] Diagnosis Cervicalgia Disorder of bone and cartilage Disorder of bone and cartilage, unspecified Primary osteoarthritis of both hands Bilateral hip pain Pain in joint, pelvic region and thigh Chronic pain of left knee Pain in joint, lower leg Primary osteoarthritis of both feet Fatigue, unspecified type AKASH positive Other and unspecified nonspecific immunological findings 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) Encounter for long-term (current) use of non-steroidal anti-inflammatories Arterial bruit Other symptoms involving cardiovascular system documented in this encounter [facility] Diagnosis Cervicalgia Disorder of bone and cartilage Disorder of bone and cartilage, unspecified Primary osteoarthritis of both hands Bilateral hip pain Pain in joint, pelvic region and thigh Chronic pain of left knee Pain in joint, lower leg Primary osteoarthritis of both feet Fatigue, unspecified type AKASH positive Other and unspecified nonspecific immunological findings custodial current use of non-steroidal anti-inflammatories (NSAID) Encounter for long-term (current) use of non-steroidal anti-inflammatories Arterial bruit Other symptoms involving cardiovascular system documented in this encounter [facility]* Diagnosis Cervicalgia Disorder of bone and cartilage Disorder of bone and cartilage, unspecified Primary osteoarthritis of both hands Bilateral hip pain Pain in joint, pelvic region and thigh Chronic pain of left knee Pain in joint, lower leg Primary osteoarthritis of both feet Fatigue, unspecified type AKASH positive Other and unspecified nonspecific immunological findings custodial current use of non-steroidal anti-inflammatories (NSAID) Encounter for long-term (current) use of non-steroidal anti-inflammatories Arterial bruit Other symptoms involving cardiovascular system documented in this encounter [facility]* Diagnosis Vitamin D deficiency- Primary Unspecified vitamin D deficiency Primary osteoarthritis of both hands Primary osteoarthritis of both feet Primary osteoarthritis of both hips Primary localized osteoarthrosis, pelvic region and thigh Acute cystitis with hematuria Acute cystitis AKASH positive Other and unspecified nonspecific immunological findings 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) Encounter for long-term (current) use of non-steroidal anti-inflammatories Elevated BUN Other abnormal blood chemistry documented in this encounter [facility]* Diagnosis Onset Date Resolution Status Acid reflux acute Screening for intestinal cancer acute Acid reflux acute Izaguirre's esophagus determined by biopsy acute Acid reflux acute Izaguirre's esophagus determined by biopsy acute Hiatal hernia with gastroesophageal reflux acute [facility] Work Phone: Evaluation note* Diagnosis Onset Date Resolution Status Acid reflux acute Izaguirre's esophagus determined by biopsy acute Acid reflux acute Izaguirre's esophagus determined by biopsy acute Hiatal hernia with gastroesophageal reflux acute Hiatal hernia with gastroesophageal reflux acute Acid reflux acute Izaguirre's esophagus determined by biopsy acute Dizziness acute Hiatal hernia with gastroesophageal reflux acute [facility] Work Phone: Evaluation note* Diagnosis Onset Date Resolution Status Hiatal hernia with gastroesophageal reflux acute Acid reflux acute Izaguirre's esophagus determined by biopsy acute Dizziness acute Hiatal hernia with gastroesophageal reflux acute Izaguirre's esophagus determined by biopsy acute Constipation acute Hiatal hernia with gastroesophageal reflux acute [facility] Work Phone: Evaluation note* Diagnosis Onset Date Resolution Status Izaguirre's esophagus determined by biopsy acute Constipation acute Hiatal hernia with gastroesophageal reflux acute Izaguirre's esophagus determined by biopsy acute [facility] Work Phone: Evaluation noteNo assessment information available [facility] Work Phone: Evaluation note* Diagnosis Onset Date Resolution Status Low back pain acute Lumbar degenerative disc disease acute Osteoarthritis of left hip a cute Piriformis syndrome of left side acute Tobacco abuse acute Chronic back pain chronic [facility] Work Phone: Evaluation note* Diagnosis Onset Date Resolution Status Cystocele without uterine prolapse acute Pessary maintenance acute Cystocele without uterine prolapse acute Inclusion cyst acute Pessary maintenance acute [facility] Work Phone: Evaluation note* Diagnosis Onset Date Resolution Status Cystocele without uterine prolapse acute Inclusion cyst acute Pessary maintenance acute [facility] Work Phone: Evaluation note* Diagnosis Onset Date Resolution Status Dysuria noneactive [facility] Work Phone: Evaluation note* Diagnosis Onset Date Resolution Status Dysuria noneactive Cystocele without uterine prolapse acute Pessary maintenance acute Encounter for routine gynecological examination noneactive Dysuria noneactive [facility] Work Phone: Reason for referral (narrative)No reason for referral information available[facility] Work Phone: Summary Purpose Family History No [...] Will No November 30 10:37am Power of Dog Groomer No November 30, 2021 10:37am Advance Directive Response Recorded Date/ Time Living Will No April 11, 2022 1 :32pm Power of Dog Groomer No April 11, 2022 1:32pm Advance Directive Response Recorded Date/ Time Living Will No April 11, 2022 1 2:32pm Power of Dog Groomer No April 11, 2022 12:32pm Advance Directive Response Recorded Date/ Time Living Will No October 27 2:57pm Do you have a Healthcare Power of Dog Groomer? No October 27, 2024 2:57pm Advance Directive Response Recorded Date/ Time Living Will No February 23, 2025 1:37pm Do you have a Healthcare Power of Dog Groomer? 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 Anastacio Lloyd MD Primary Care Provider Active Maribel Delgado MANAGER PROCESS IMPROVEMENT, MANAGER PROCESS IMPROVEMENT-C Attending Provider, Referring Provider Active Team Status: [...] BE BASED ON THE PRIMARY CLINICAL RECORDS. [facility] [employer] provides no warranty or guarantee of the accuracy or completeness of information in this document.
== END | disposition home or self-care (01) ==
PROVIDERS: PCP Family Medicine; Referring Provider Family Medicine; Visit Provider Family Medicine
DX: E55.9 Vitamin D deficiency, unspecified (principal); E78.5 Hyperlipidemia, unspecified; M79.645 Pain in left finger(s)
CPT/HCPCS: 36415; 73140; 80053; 80061; 82306; 85025

== ENCOUNTER 2025-05-27 10:24 | Outpatient (CLI) | payer MEDICARE, BC, SELFPAY ==
--- NOTE | 2025-05-27 10:41 | BI_ITS ---
EXAM: SCRN MAMM (CAD)W/CELIA BILAT DATE: 05/27/2025 CLINICAL HISTORY: F, Age 69 y/o , SCREENING MAMMOGRAM FOR BREAST CANCER TECHNIQUE: SCRN MAMM (CAD)W/CELIA BILAT COMPARISON: Prior exam(s) dated 05/26/2024, 05/24/2023. FINDINGS: TISSUE DENSITY: The breasts are almost entirely fatty. Bilateral Breast Mammographic Findings: No significant masses, calcifications or other abnormalities are identified. BI/SCRN MAMM (CAD)W/CELIA BILAT IMPRESSION: There is no mammographic evidence of malignancy. OVERALL FINAL ASSESSMENT BI-RADS 1: NEGATIVE. RECOMMENDATION: Routine annual follow-up in 1 Year A letter with findings and recommendations will be mailed to the patient. Reading Location: [id number]
== END 2025-05-27 23:59 | disposition home or self-care (01) ==
LOC: OPBI 10:41
PROVIDERS: PCP Family Medicine; Referring Provider Nurse Practitioner Women's Health; Visit Provider Nurse Practitioner Women's Health
DX: Z12.31 Encounter for screening mammogram for malignant neoplasm of breast (principal)
CPT/HCPCS: 77063; 77067

== ENCOUNTER → 2025-09-01 | Outpatient (CLI) | payer MEDICARE, BC, SELFPAY ==
--- NOTE | 2025-09-01 17:18 | CT_ITS ---
PROCEDURE: LOW DOSE CT LUNG SCREENING 09/01/2025 REASON FOR EXAM: TOBACCO TECHNIQUE: Procedure Code: CTLUNGSCREEN Modality: CT Procedure: LOW DOSE CT LUNG SCREENING Coronal and Sagittal reconstruction series were provided. One or more dose reduction techniques were used (e.g., Automated exposure control, adjustment of the mA and/or kV according to patient size, use of iterative reconstruction technique). REFERENCE LINK: [facility] Lung-RADS RADIATION DOSE SUMMARY: CTDlvol: 3.02 mGy DLP: 102.32 mGycm COMPARISON: CT lung screen, 06/06/2024. FINDINGS: PULMONARY NODULES: (Only nodules >3mm are reported) Lower neck:The thyroid gland is normal. There is no supraclavicular lymphadenopathy. Mediastinum:There are multiple stable reactive mediastinal lymph nodes, index node, a right paratracheal lymph node measuring 1.8 x 1.0 cm (was 1.8 x 1.1 cm). Heart and Aorta:The heart size is normal. There is no pericardial effusion. There is moderate calcific vascular disease of the coronary arteries and abdominal aorta. Esophagus:There is a small hiatal hernia. Status post anti reflux surgery. Upper Abdomen:There is calcific vascular disease of the visualized abdominal aorta. Chest wall:Visualized soft tissues of the chest wall are unremarkable. There are no significant bony abnormalities of the chest. Lungs, airways and pleura: There is mild upper lobe predominant centrilobular emphysema. There is stable pleural-parenchymal scarring in the middle lobe of the right lung. There is diffuse tubular bronchiectasis. There are no pulmonary nodules. There are no pleural effusions. CT/Low Dose CT Lung Screening IMPRESSION: 1. Emphysema. 2. Diffuse tubular bronchiectasis. 3. There are no pulmonary nodules. 4. Calcific vascular disease. 5. Other findings as noted. Lung-RADS Category: 1 S: Negative. Emphysema. Calcific vascular disease. Recommendation: Follow up low-dose chest CT in 12 months. Reading Location: [id number]
== END | disposition home or self-care (01) ==
LOC: CT 17:16
PROVIDERS: PCP Family Medicine
DX: Z12.2 Encounter for screening for malignant neoplasm of respiratory organs (principal); Z87.891 Personal history of nicotine dependence
CPT/HCPCS: 71271

== ENCOUNTER → 2025-09-16 | Outpatient (CLI) | payer MEDICARE, BC, SELFPAY | END | disposition home or self-care (01) | LOC: PSN 12:49 | PROVIDERS: PCP Family Medicine | DX: J43.9 Emphysema, unspecified (principal) | CPT/HCPCS: 94060 ==